=== PATIENT | female | born 1935 | race Caucasian/White ===

== ENCOUNTER 2023-04-28 14:21 | Outpatient (OUT) | payer MEDICARE, SELFPAY ==
--- NOTE | 2023-04-28 14:30 | XR_ITS ---
The [address] [address] Patient Name: MILIND SANDERS MRN: [id number] date: 1935 Sex: F Assigned Patient Location: [facility] Current Patient Location: Accession/Order Number: [id number] Exam Date: 04/28/2023 14:38 Report Date: 04/29/2023 07:38 At the request of: SARA BLAKE Procedure: XR wrist LT min 3V PROCEDURE: XR wrist LT min 3V COMPARISON: None. HISTORY: Pain in the left wrist M25.532 FINDINGS: BONES:Severe degenerative changes first carpometacarpal joint with lmnt-mm-lnts articulation and remodeling. Subchondral lytic change of the lunate SOFT TISSUES:Negative. No visible soft tissue swelling. EFFUSION:None visible. OTHER: Negative. IMPRESSION: Degenerative changes most significant first carpometacarpal joint Electronically authenticated by: NANCY MAN Date: 04/29/2023 07:38
== END 2023-04-28 14:22 | disposition home or self-care (01) ==
LOC: RAD 14:24
PROVIDERS: PCP Family Medicine; Visit Provider Family Medicine
DX: M25.532 Pain in left wrist (principal)
CPT/HCPCS: 73110

== ENCOUNTER 2023-06-22 12:46 | Outpatient (RCR) | payer MEDICARE, SELFPAY | END 2023-07-02 16:37 | disposition home or self-care (01) | LOC: ST 12:46 | PROVIDERS: PCP Family Medicine | DX: R13.10 Dysphagia, unspecified (principal) | CPT/HCPCS: 92526; 92610 ==

== ENCOUNTER 2023-07-12 12:22 | Outpatient (OUT) | payer MEDICARE, SELFPAY ==
--- NOTE | 2023-07-12 12:39 | MR_ITS ---
[address] [address] Patient Name: MILIND SANDERS MRN: [id number] date: 1935 Sex: F Assigned Patient Location: LAB Current Patient Location: LAB Accession/Order Number: [id number] Exam Date: 07/12/2023 12:46 Report Date: 07/12/2023 15:56 At the request of: NON-STAFF PHYSICIAN Procedure: MR head/brain wo/w con EXAM: MR HEAD/BRAIN WO/W CON HISTORY: Ataxia R27.0, memory impairment R41.3. Right-sided trigeminal neuralgia. COMPARISON: Head CT 07/29/2020. TECHNIQUE: Multiplanar, multisequence MR imaging of the head was performed prior to and following the administration of 13 mm Dotarem contrast intravenously. FINDINGS: No restricted diffusion. No acute hemorrhage, mass effect, midline shift or extra-axial fluid collection. There is moderate diffuse cerebral atrophy with concordant prominence of the ventricles. Mild patchy areas of increased FLAIR signal are seen within the periventricular and subcortical white matter. Expected flow voids are noted within the intracranial internal carotid, vertebral and basilar arteries. The cerebellopontine angles and internal auditory canals are unremarkable. The pituitary gland and midline structures are unremarkable. Bone marrow signal is within normal limits. The orbits and globes are unremarkable. There has been bilateral cataract eye surgery. Expected signal voids are seen within the paranasal sinuses and mastoid air cells. No abnormal enhancement. Cavernous sinus regions are unremarkable. The cisternal segments of the trigeminal nerves are not well-visualized MR/MR head/brain wo/w con IMPRESSION: 1. Moderate diffuse cerebral atrophy with concordant prominence of the ventricles. 2. Mild nonspecific FLAIR signal abnormalities of the supratentorial white matter, compatible with chronic small vessel ischemic changes. No abnormal enhancement or mass effect. Electronically authenticated by: NANCY ABEBE Date: 07/12/2023 15:56
[2023-07-12 12:47] LABS: Estimated GFR (African America 58 (>=60); Estimated GFR (Non-African Ame 48 (>=60)
== END 2023-07-12 12:23 | disposition home or self-care (01) ==
LOC: LAB 12:22
PROVIDERS: PCP Family Medicine
DX: G50.0 Trigeminal neuralgia (principal); R41.3 Other amnesia; R27.0 Ataxia, unspecified
CPT/HCPCS: 36415; 70553; 82565; 84520; A9575

== ENCOUNTER 2023-08-03 13:37 | Emergency (ER) | payer MEDICARE, SELFPAY ==
[2023-08-03] VITALS (16 sets, daily range): BP systolic 150–152; BP diastolic 84–86; PULSE 66–90; RESP 11–22; TEMP 36.6–36.7; O2SAT 90–98; BMI 27.3
[2023-08-03 13:58] LABS: Glucometer 118 mg/dL (74-106)
--- NOTE | 2023-08-03 14:04 | XR_ITS ---
The [address] [address] Patient Name: MILIND SANDERS MRN: [id number] date: 1935 Sex: F Assigned Patient Location: ER Current Patient Location: ER Accession/Order Number: [id number] Exam Date: 08/03/2023 14:25 Report Date: 08/03/2023 14:48 At the request of: DREAD CASH Procedure: XR chest 1V EXAMINATION: XR chest 1V HISTORY: pain , confusion, weakness, altered mental status COMPARISON: XR chest 05/07/2022 FINDINGS: LUNGS: Underexpanded lungs with slight patient rotation; no convincing infiltrates. VASCULATURE: No increased pulmonary vasculature. PLEURA: No pneumothorax, effusion, or pleural thickening. CARDIAC: No cardiomegaly or cardiac silhouette abnormality. MEDIASTINUM: No visible mass or adenopathy. BONES: No fracture or visible bone lesion. OTHER: Negative. XR/XR chest 1V IMPRESSION: 1. Slightly limited evaluation, but no appreciable acute cardiopulmonary process. Electronically authenticated by: SELAM MCGARRY Date: 08/03/2023 14:48
--- NOTE | 2023-08-03 14:04 | ECG_ITS ---
The [facility] Test Date: 2023-08-03 Pat Name: MILIND SANDERS Department: Room: - Gender: Female Patient Access Associate: : 1935 Requested By: SARA BLAKE Order Number: [id number] Reading MD: MEÑO TRAMMELL Measurements Intervals [place] Rate: 70 P: 0 ME: 220 QRS: 2 QRSD: 128 T: 4 QT: 410 QTc: 430 Interpretive Statements 1100 Sinus rhythm 1102 Sinus arrhythmia 2231 First degree AV block 2450 Right bundle branch block 3634 Inferior myocardial infarction, age undetermined 9150 abnormal ECG No previous ECG available for comparison Electronically Signed On 08-04-2023 7:09:27 EDT by MEÑO TRAMMELL
--- NOTE | 2023-08-03 14:05 | CT_ITS ---
The [address] [address] Patient Name: MILIND SANDERS MRN: [id number] date: 1935 Sex: F Assigned Patient Location: ER Current Patient Location: ER Accession/Order Number: [id number] Exam Date: 08/03/2023 14:45 Report Date: 08/03/2023 15:07 At the request of: DREAD CASH Procedure: CT head/brain wo con CT head/brain wo con, 08/03/2023 2:45 PM EDT INDICATION: ams COMPARISON: There is no appropriate prior study for comparison. TECHNIQUE: Axial CT images of the brain from skull base to vertex, including portions of the face and sinuses, were obtained without contrast . Multiplanar reformatted images were generated and reviewed as needed. Dose reduction techniques were achieved by using automated exposure control and/or adjustment of mA and/or kV according to patient size and/or use of iterative reconstruction technique. FINDINGS: The cerebral sulci as well as ventricular system are appropriate for age. There is no intracranial mass, mass effect, midline shift, intra or extra-axial fluid collection or hemorrhage. Periventricular and centrum semiovale hypodensities are most likely consistent with microvascular ischemic changes. The visualized portions of orbits, mastoid air cells as well as paranasal sinuses are unremarkable. Tortuous right V4 is noted. There is no suspicious osteolytic or osteoblastic lesion. CT/CT head/brain wo con IMPRESSION: No acute intracranial process is noted. Electronically authenticated by: MARIYA SYLVESTER Date: 08/03/2023 15:07
--- NOTE | 2023-08-03 14:06 | ED_ITS ---
HPI - Neuro Symptoms/Deficit General Chief Complaint: Neuro Symptoms/Deficit Stated Complaint: CVA SYMPTOMS Time Seen by Provider: 08/03/23 14:04 Source: patient and family Mode of arrival: Wheelchair Limitations: no limitations History of Present Illness HPI Narrative: 87-year-old female past medical history short-term memory who is seeing a neurologist for a dementia work-up no other past medical history, per the daughter, presents for intermittent episodes of forgetfulness. Daughter states that she woke up more tired than her normal and she kept wanting to go back to bed. She noticed around 11 AM today, which was 3 hours ago, she was in the shower and did not know where the shampoo and conditioner was, but they were right in front of her. She also noticed a little mumbling of words and both symptoms resolved after a couple of minutes. Daughter states on the way here, the daughter did not know who she was. She is not on blood thinners. She is prone to UTIs, but has not had 1 in a very long time. Denies fever, cough, dizziness, headache, vision changes, abd or back pain, dysuria, n/v/d, SOB or CP Related Data Previous Rx's Medication Instructions Recorded cephalexin 500 mg capsule 500 mg PO BID 7 days #14 caps 08/03/23 Review of Systems ROS Status of ROS 10 or more systems reviewed and unremarkable except as noted in history and below [facility] Social History Smoking status: Never smoker Exam Narrative Exam Narrative: General: alert, no distress, talking in full an complete sentences skin: warm, dry, intact head: normocephalic, atraumatic eyes: EOMI nose: nares patent neck: supple, trachea midline cardiac: +S1/S1. no murmur respiratory: lungs CTA, non-labored, no wheezing, no retractions extremities: FROM x 4, strength +5/5 neuro: A&Ox2, no focal neurological deficits, sensory intact psych: appropriate mood and affect, cooperative Unable to tell me what month and daughter states that this is normal Constitutional Vital Signs, click to edit/add: Last Vital Signs Temp 98 F 08/03/23 13:50 Pulse 66 08/03/23 16:10 Resp 18 08/03/23 16:10 BP 152/86 H 08/03/23 16:10 Pulse Ox 94 L 08/03/23 16:10 O2 Del Method Room Air 08/03/23 14:42 Course Vital Signs Vital signs: Vital Signs Temperature 98 F 08/03/23 13:50 Pulse Rate 75 08/03/23 13:50 Respiratory Rate 20 08/03/23 13:50 Blood Pressure 150/84 H 08/03/23 13:50 Pulse Oximetry 93 L 08/03/23 13:50 Oxygen Delivery Method Room Air 08/03/23 13:50 Temperature 98 F 08/03/23 13:50 Pulse Rate 66 08/03/23 16:10 Respiratory Rate 18 08/03/23 16:10 Blood Pressure 152/86 H 08/03/23 16:10 Pulse Oximetry 94 L 08/03/23 16:10 Oxygen Delivery Method Room Air 08/03/23 14:42 MDM - Neuro Symptoms/Deficit MDM Narrative Medical decision making narrative: NIH 0 and she is not a tPA candidate due to NIH score and intermittent symptoms that resolved and returned and not consistent with a stroke. EKG sinus rhythm with a first-degree AV block and a right bundle branch block at a rate of 70. Nurse informs me that patients oxygen is 90% and she is put on 2 L O2. No acute findings on final read of chest x-ray. No acute findings on final read of CT head. No acute findings on final read of CTA chest and unlikely a pulmonology issue as the cause for her O2 reading more likely equipment versus inaccurate reading from a finger monitor. No other significant lab abnormalities. COVID- negative. UA positive for nitrite, leukocyte, WBC and bacteria and will be treated for UTI with Keflex. No indications for IV antibiotics. Patient was complaining of left leg pain at the same time the nurse stated that she was 90% on room air and venous Doppler negative. F/u with PCP. afebrile, not tachypneic, not tachycardic, tolerating p.o., not hypoxic, non toxic appearing and ambulating at baseline and hemodynamically stable to be d/c. answered all questions. educated on SE of meds. pt in agreement with tx. educated when to return to ER. Lab Data Labs: Lab Results 08/03/23 08/03/23 08/03/23 Range/Units 13:57 14:00 15:00 WBC 7.5 (4.0-11.0) 10^3/uL RBC 4.42 (4.20-5.40) 10^6/uL Hgb 14.3 (12.0-16.0) g/dL Hct 43.7 (36.0-48.0) % MCV 98.9 (81.0-99.0) fL MCH 32.4 (26.7-34.0) pg MCHC 32.7 (29.9-35.2) g/dL RDW 12.8 (11.0-15.0) % Plt Count 228 (150-450) 10^3/uL MPV 9.5 (9.5-13.5) fL Neut % (Auto) 60.6 (43.0-75.0) % Lymph % (Auto) 29.7 (20.5-60.0) % [place] % (Auto) 7.0 (1.7-12.0) % Eos % (Auto) 1.5 (0.9-7.0) % Baso % (Auto) 0.7 (0.2-2.0) % Neut # (Auto) 4.5 (1.4-6.5) 10^3/uL Lymph # (Auto) 2.2 (1.2-3.8) 10^3/uL [place] # (Auto) 0.5 (0.3-0.8) 10^3/uL Eos # (Auto) 0.1 (0.0-0.7) 10^3/uL Baso # (Auto) 0.1 (0.0-0.1) 10^3/uL Abs Immat Gran (auto) 0.04 H (0.00-0.03) 10^3/uL Imm/Tot Granulo (auto) 0.5 (0.0-0.5) % PT 9.9 (9.0-11.6) sec INR 0.93 Sodium 137 (136-145) mmol/L Potassium 4.2 (3.5-5.1) mmol/L Chloride 101 (98-107) mmol/L Carbon Dioxide 27.3 (21.0-32.0) mmol/L Anion Gap 12.9 BUN 30.0 H (7.0-18.0) mg/dL Creatinine 1.15 H (0.55-1.02) mg/dL Est GFR ( Amer) 54 L (>=60) Est GFR (Non-Af Amer) 45 L (>=60) BUN/Creatinine Ratio 26.1 Glucose 121 H (74-106) mg/dL Calcium 8.8 (8.5-10.1) mg/dL Magnesium 2.1 (1.8-2.4) mg/dL Total Bilirubin 0.5 (0.2-1.0) mg/dL AST 20 (15-37) U/L ALT 25 (14-59) U/L Alkaline Phosphatase 64 (46-116) U/L Troponin I High Sens 9.4 (4.0-51.3) pg/mL NT-Pro-B Natriuret Pep 124.0 (<=1800.0) pg/mL Total Protein 7.5 (6.4-8.2) g/dL Albumin 3.7 (3.4-5.0) g/dL Globulin 3.8 g/dL Albumin/Globulin Ratio 1.0 TSH 2.558 (0.358-3.740) uIU/mL Urine Color (YELLOW) Urine Clarity (CLEAR) Urine pH (5.0-9.0) Ur Specific [place] (1.005-1.025) Urine Protein (NEG/TRACE) mg/dL Urine Glucose (UA) (NEGATIVE) mg/dL Urine Ketones (NEGATIVE) mg/dL Urine Occult Blood (NEGATIVE) Urine Nitrite (NEGATIVE) Urine Bilirubin (NEGATIVE) Urine Urobilinogen (0.2-1.0) EU/dL Ur Leukocyte Esterase (NEGATIVE) Urine RBC (0-2) #/HPF Urine WBC (NONE SEEN) #/HPF Ur Squamous Epith Cells (NONE/RARE) #/LPF Urine Crystals (None Seen) #/HPF Urine Bacteria (NONE SEEN) #/HPF Urine Casts (NONE SEEN) #/LPF Urine Mucus (NONE SEEN) SARS-CoV-2 (PCR) Negative (NEGATIVE) POC Glucose 118 H (74-106) mg/dL 08/03/23 Range/Units 15:15 WBC (4.0-11.0) 10^3/uL RBC (4.20-5.40) 10^6/uL Hgb (12.0-16.0) g/dL Hct (36.0-48.0) % MCV (81.0-99.0) fL MCH (26.7-34.0) pg MCHC (29.9-35.2) g/dL RDW (11.0-15.0) % Plt Count (150-450) 10^3/uL MPV (9.5-13.5) fL Neut % (Auto) (43.0-75.0) % Lymph % (Auto) (20.5-60.0) % [place] % (Auto) (1.7-12.0) % Eos % (Auto) (0.9-7.0) % Baso % (Auto) (0.2-2.0) % Neut # (Auto) (1.4-6.5) 10^3/uL Lymph # (Auto) (1.2-3.8) 10^3/uL [place] # (Auto) (0.3-0.8) 10^3/uL Eos # (Auto) (0.0-0.7) 10^3/uL Baso # (Auto) (0.0-0.1) 10^3/uL Abs Immat Gran (auto) (0.00-0.03) 10^3/uL Imm/Tot Granulo (auto) (0.0-0.5) % PT (9.0-11.6) sec INR Sodium (136-145) mmol/L Potassium (3.5-5.1) mmol/L Chloride (98-107) mmol/L Carbon Dioxide (21.0-32.0) mmol/L Anion Gap BUN (7.0-18.0) mg/dL Creatinine (0.55-1.02) mg/dL Est GFR ( Amer) (>=60) Est GFR (Non-Af Amer) (>=60) BUN/Creatinine Ratio Glucose (74-106) mg/dL Calcium (8.5-10.1) mg/dL Magnesium (1.8-2.4) mg/dL Total Bilirubin (0.2-1.0) mg/dL AST (15-37) U/L ALT (14-59) U/L Alkaline Phosphatase (46-116) U/L Troponin I High Sens (4.0-51.3) pg/mL NT-Pro-B Natriuret Pep (<=1800.0) pg/mL Total Protein (6.4-8.2) g/dL Albumin (3.4-5.0) g/dL Globulin g/dL Albumin/Globulin Ratio TSH (0.358-3.740) uIU/mL Urine Color Lt. yellow (YELLOW) Urine Clarity Clear (CLEAR) Urine pH 6.5 (5.0-9.0) Ur Specific [place] <=1.005 A (1.005-1.025) Urine Protein Negative (NEG/TRACE) mg/dL Urine Glucose (UA) Negative (NEGATIVE) mg/dL Urine Ketones Negative (NEGATIVE) mg/dL Urine Occult Blood Trace-l (NEGATIVE) Urine Nitrite Positive A (NEGATIVE) Urine Bilirubin Negative (NEGATIVE) Urine Urobilinogen 0.2 (0.2-1.0) EU/dL Ur Leukocyte Esterase Small A (NEGATIVE) Urine RBC 0-2 (0-2) #/HPF Urine WBC 10-20 A (NONE SEEN) #/HPF Ur Squamous Epith Cells Rare (NONE/RARE) #/LPF Urine Crystals None seen (None Seen) #/HPF Urine Bacteria Moderate A (NONE SEEN) #/HPF Urine Casts None seen (NONE SEEN) #/LPF Urine Mucus None seen (NONE SEEN) SARS-CoV-2 (PCR) (NEGATIVE) POC Glucose (74-106) mg/dL Discharge Plan Discharge Chief Complaint: Neuro Symptoms/Deficit Clinical Impression: Acute confusion UTI (urinary tract infection) Qualifiers: Urinary tract infection type: acute cystitis Hematuria presence: without hematuria Qualified Code(s): N30.00 - Acute cystitis without hematuria Patient Disposition: Home, Self-Care Time of Disposition Decision: 16:05 Condition: Good Mode of Transportation: Private Vehicle Prescriptions / Home Meds: New cephalexin 500 mg capsule 500 mg PO BID 7 Days Qty: 14 0RF Instructions: Urinary Tract Infection in Older Adults (ED) Stand Alone Forms: Portal Instructions Referrals: Dahiana Ren MD [Primary Care Provider] - 1 week
[2023-08-03 14:17] LABS: Basophils Absolute Auto 0.1 10^3/uL (0.0-0.1); Basophils Percent Auto 0.7 % (0.2-2.0); Eosinophils Absolute Auto 0.1 10^3/uL (0.0-0.7); Eosinophils Percent Auto 1.5 % (0.9-7.0); Hematocrit 43.7 % (36.0-48.0); Hemoglobin 14.3 g/dL (12.0-16.0); Immature Granulocytes Abs Auto 0.04 10^3/uL (0.00-0.03); Immature Granulocytes Pct Auto 0.5 % (0.0-0.5); Lymphocytes Absolute Auto 2.2 10^3/uL (1.2-3.8); Lymphocytes Percent Auto 29.7 % (20.5-60.0); Mean Corpuscular HGB Conc 32.7 g/dL (29.9-35.2); Mean Corpuscular Hemoglobin 32.4 pg (26.7-34.0); Mean Corpuscular Volume 98.9 fL (81.0-99.0); Mean Platelet Volume 9.5 fL (9.5-13.5); Monocytes Absolute Auto 0.5 10^3/uL (0.3-0.8); Neutrophils Absolute Auto 4.5 10^3/uL (1.4-6.5); Neutrophils Percent Auto 60.6 % (43.0-75.0); Platelet Count 228 10^3/uL (150-450); Red Blood Count 4.42 10^6/uL (4.20-5.40); Red Cell Distribution Width 12.8 % (11.0-15.0); White Blood Count 7.5 10^3/uL (4.0-11.0)
[2023-08-03 14:26] LABS: INR 0.93; Prothrombin Time 9.9 sec (9.0-11.6)
[2023-08-03 14:30] LABS: Alanine Aminotransferase 25 U/L (14-59); Albumin Level 3.7 g/dL (3.4-5.0); Alkaline Phosphatase 64 U/L (46-116); Anion Gap 12.9; Aspartate Amino Transferase 20 U/L (15-37); BUN Creatinine Ratio 26.1; Bilirubin Total 0.5 mg/dL (0.2-1.0); Calcium 8.8 mg/dL (8.5-10.1); Carbon Dioxide 27.3 mmol/L (21.0-32.0); Chloride 101 mmol/L (98-107); Estimated GFR (African America 54 (>=60); Estimated GFR (Non-African Ame 45 (>=60); Globulin 3.8 g/dL; Glucose 121 mg/dL (74-106); Potassium 4.2 mmol/L (3.5-5.1); Sodium 137 mmol/L (136-145); Total Protein 7.5 g/dL (6.4-8.2)
[2023-08-03 14:37] LABS: Magnesium 2.1 mg/dL (1.8-2.4); Thyroid Stimulating Hormone 2.558 uIU/mL (0.358-3.740); Troponin I High Sensitivity 9.4 pg/mL (4.0-51.3)
--- NOTE | 2023-08-03 14:39 | CT_ITS ---
The [address] [address] Patient Name: MILIND SANDERS MRN: [id number] date: 1935 Sex: F Assigned Patient Location: ER Current Patient Location: ER Accession/Order Number: [id number] Exam Date: 08/03/2023 14:45 Report Date: 08/03/2023 15:15 At the request of: DREAD CASH Procedure: CT angio chest EXAM: CT angio chest HISTORY: r/o PE altered mental status. Shortness of breath. COMPARISON: None. TECHNIQUE: Following the intravenous administration of 90 cc of Omnipaque 350, axial soft tissue and lung windows of the chest were performed with coronal and sagittal reformats. 3-D MIPS reconstructions were created and reviewed. CT dose reduction technique was used including Automated Exposure Control. Findings: The heart is not significantly enlarged. There are mild coronary artery calcifications. No pericardial effusion. The thoracic aorta is normal caliber with mild atherosclerotic disease. There is adequate opacification of the pulmonary arteries. No evidence of pulmonary embolism. The central airways are patent. No pneumothorax. No pleural effusion. No focal consolidation. Mild bilateral lower lobe atelectasis. Unremarkable thyroid gland. No enlarged mediastinal, hilar, axillary or supraclavicular lymph nodes. Within segment 2 of the liver there is a 1.4 cm cyst. No aggressive sclerotic or lytic osseous lesions. Mild multilevel degenerative spondylosis. CT/CT angio chest IMPRESSION: 1. No pulmonary embolism. Electronically authenticated by: SILVIA COYLE Date: 08/03/2023 15:15
--- NOTE | 2023-08-03 14:39 | US_ITS ---
The [address] [address] Patient Name: MILIND SANDERS MRN: [id number] date: 1935 Sex: F Assigned Patient Location: ER Current Patient Location: ED.MAIN Accession/Order Number: [id number] Exam Date: 08/03/2023 15:15 Report Date: 08/03/2023 16:08 At the request of: DREAD CASH Procedure: US venous doppler LE LT Ultrasound venous duplex scan left lower extremity CLINICAL: Left thigh cramping for 3 weeks. TECHNIQUE: Macias-scale, color Doppler and Duplex examination of the left lower extremity was performed with and without provocative maneuvers. FINDINGS: Comparison: None. Sonographic examination of the left lower extremity deep venous system to include the common femoral, superficial femoral and popliteal veins, demonstrates normal compressibility, color-flow, respiratory variation, and augmentation. The origin of the greater saphenous vein demonstrates normal compression, and there is normal color-flow in the proximal profunda femoral vein. There is normal color-flow in the peroneal, posterior tibial, and anterior tibial veins. US/US venous doppler LE LT IMPRESSION: 1. No deep venous thrombosis in the left lower extremity. Electronically authenticated by: MINNIE ZHAO Date: 08/03/2023 16:08
[2023-08-03 15:47] LABS: Bilirubin Urine NEGATIVE (NEGATIVE); Blood Urine TRACE-L (NEGATIVE); Clarity Urine CLEAR (CLEAR); Color Urine LT. YELLOW (YELLOW); Glucose Urine UA NEGATIVE (NEGATIVE); Ketones Urine NEGATIVE (NEGATIVE); Leukocyte Esterase Urine SMALL (NEGATIVE); Nitrite Urine POSITIVE (NEGATIVE); Protein Urine NEGATIVE (NEG/TRACE); Specific Gravity Urine <=1.005 (1.005-1.025); Urobilinogen Urine 0.2 EU/dL (0.2-1.0); pH Urine 6.5 (5.0-9.0)
[2023-08-03 15:53] LABS: SARS-CoV-2 Ag NEGATIVE (NEGATIVE)
[2023-08-03 15:55] LABS: Bacteria Urine MODERATE #/HPF (NONE SEEN); Cast Seen? NONE SEEN #/LPF (NONE SEEN); Crystals Seen? None Seen #/HPF (None Seen); Mucus Urine NONE SEEN (NONE SEEN); RBC Urine 0-2 #/HPF (0-2); Squamous Epithelial Cell Urine RARE #/LPF (NONE/RARE)
[2023-08-04 14:46] LABS: SARS-CoV-2 NAA NOT DETECTED (NOT DETECTE)
== END 2023-08-03 16:39 | disposition home or self-care (01) ==
PROVIDERS: Physician Assistant; Emergency Provider Emergency Medicine; PCP Family Medicine
DX: N30.00 Acute cystitis without hematuria (principal); R41.0 Disorientation, unspecified; F03.90 Unspecified dementia, unspecified severity, without behavioral disturbance, psychotic disturbance, mood disturbance, and anxiety; I44.0 Atrioventricular block, first degree; I45.10 Unspecified right bundle-branch block; Z20.822 Contact with and (suspected) exposure to COVID-19; M79.605 Pain in left leg
CPT/HCPCS: 36415; 70450; 71045; 71275; 80053; 81001; 83735; 83880; 84443; 84484; 85025; 85610; 87635; 87811; 93005; 93971; 99285; Q9967

== ENCOUNTER 2024-04-19 14:00 | Outpatient (OUT) | payer MEDICARE, SELFPAY ==
[2024-04-19 14:36] LABS: Basophils Percent Auto 0.4 % (0.2-2.0); Eosinophils Absolute Auto 0.2 10^3/uL (0.0-0.7); Eosinophils Percent Auto 2.6 % (0.9-7.0); Hemoglobin 13.4 g/dL (12.0-16.0); Immature Granulocytes Abs Auto 0.02 10^3/uL (0.00-0.03); Immature Granulocytes Pct Auto 0.3 % (0.0-0.5); Lymphocytes Absolute Auto 1.7 10^3/uL (1.2-3.8); Mean Corpuscular HGB Conc 32.7 g/dL (29.9-35.2); Mean Corpuscular Hemoglobin 30.2 pg (26.7-34.0); Mean Corpuscular Volume 92.3 fL (81.0-99.0); Mean Platelet Volume 9.1 fL (9.5-13.5); Monocytes Absolute Auto 0.5 10^3/uL (0.3-0.8); Monocytes Percent Auto 6.5 % (1.7-12.0); Neutrophils Absolute Auto 4.6 10^3/uL (1.4-6.5); Neutrophils Percent Auto 66.2 % (43.0-75.0); Platelet Count 241 10^3/uL (150-450); Red Blood Count 4.44 10^6/uL (4.20-5.40); Red Cell Distribution Width 13.1 % (11.0-15.0); White Blood Count 6.9 10^3/uL (4.0-11.0)
[2024-04-19 15:00] LABS: Alanine Aminotransferase 42 U/L (14-59); Albumin Level 3.5 g/dL (3.4-5.0); Alkaline Phosphatase 91 U/L (46-116); Aspartate Amino Transferase 33 U/L (15-37); Bilirubin Total 0.3 mg/dL (0.2-1.0); Calcium 9.2 mg/dL (8.5-10.1); Carbon Dioxide 30.2 mmol/L (21.0-32.0); Chloride 102 mmol/L (98-107); Estimated GFR (African America 60 (>=60); Estimated GFR (Non-African Ame 49 (>=60); Globulin 3.4 g/dL; Glucose 119 mg/dL (74-106); Magnesium 1.9 mg/dL (1.8-2.4); Potassium 4.2 mmol/L (3.5-5.1); Sodium 139 mmol/L (136-145); Total Protein 6.9 g/dL (6.4-8.2)
== END 2024-04-19 14:01 | disposition home or self-care (01) ==
LOC: LAB 14:04
PROVIDERS: PCP Family Medicine; Visit Provider Family Medicine
DX: R30.0 Dysuria (principal); E83.42 Hypomagnesemia; I10 Essential (primary) hypertension; L65.9 Nonscarring hair loss, unspecified
CPT/HCPCS: 36415; 80053; 83735; 84443; 85025

== ENCOUNTER 2024-04-23 13:01 | Outpatient (OUT) | payer MEDICARE, SELFPAY ==
--- NOTE | 2024-04-23 13:04 | CA_ITS ---
Patient Name: MILIND SANDERS MR#: [id number] : 1935 Exam Date: 04/23/2024 Ordering Doctor: ESTEBAN FERNANDO ECHOCARDIOGRAM REPORT PROCEDURE: CA ECHO LIMITED INDICATIONS: Takotsubo syndrome COMPARISON: None. DESCRIPTION: Limited ECHOCARDIOGRAM Real-time transthoracic echocardiography with 2D and M-mode performed. QUALITY: Technical quality was good. LEFT VENTRICLE: Normal chamber size. Normal left ventricular wall thickness. Global left ventricular systolic function is normal. LV EF: Estimated left ventricular ejection fraction is 60-65%. DIASTOLIC: ATRIAL SEPTUM: LEFT ATRIUM: Normal chamber size. RIGHT ATRIUM: Normal chamber size. RIGHT VENTRICLE: Normal chamber size. Normal right ventricular systolic function. TRICUSPID VALVE: Normal mobility and thickness. MITRAL VALVE: Normal mobility and thickness. There is no mitral annular calcification. AORTIC VALVE: Normal trileaflet appearance. Thickened aortic valve. Normal leaflet mobility. AORTIC ROOT: Normal diameter and appearance. PULMONIC VALVE: Normal thickness and mobility. PERICARDIUM: No evidence of pericardial effusion. IVC: Collapses with inspirations. Normal size. PLEURA: CONCLUSION: 1. Normal ventricular systolic function. LVEF is 60-65%. 2. No pericardial effusion. 3. Limited study performed with no Doppler interrogation as requested. Adult Echocardiography Procedure Report Left Ventricle LVEDD (3.7 - 5.6 cm): 4.46 cm LVESD (2.2 - 4.0 cm): 2.85 cm LVIVS thickness (0.6 - 1.2 cm): 1.03 cm LVPW thickness (0.5 - 1.0 cm): 0.96 cm LVOT Diameter 2.09 cm Left Ventricular Ejection Fraction: 60-65 % Left Atrium LA Volume Index (2D A2C): 21.92 ml/m2 Left Atrium Systolic Dimension: 3.61 cm Mitral Valve Right Ventricle RV Internal Diastolic Dimension: 3.13 cm Aorta AO Root Diam: 3.72 cm Ascending Ao Diam: 3.16 cm Aortic Valve Tricuspid Valve Pulmonic Valve Right Atrium Right Atrium Systolic Pressure: 29.75 ml, 29.75 ml Dictated by: Aj Pendleton M.D. on 04/24/2024 at 18:31 Approved by: Aj Pendleton M.D. on 04/24/2024 at 18:34
== END 2024-04-23 13:02 | disposition home or self-care (01) ==
LOC: CARD 13:02
PROVIDERS: PCP Family Medicine; Visit Provider Nurse Practitioner
DX: I51.81 Takotsubo syndrome (principal)
CPT/HCPCS: 93308

== ENCOUNTER 2024-05-14 15:16 | Observation (INO) | payer MEDICARE, SELFPAY ==
[2024-05-14 15:25] VITALS: BP 171/96; PULSE 73; TEMP 36.7; O2SAT 91; BMI 23.4
--- NOTE | 2024-05-14 15:39 | XR_ITS ---
The [address] [address] Patient Name: MILIND SANDERS MRN: [id number] date: 1935 Sex: F Assigned Patient Location: ER Current Patient Location: ER Accession/Order Number: [id number] Exam Date: 05/14/2024 16:05 Report Date: 05/14/2024 16:23 At the request of: AGUSTIN BIRCH Procedure: XR chest 1V EXAM: XR chest 1V HISTORY: . fall . COMPARISON: 08/03/2023 TECHNIQUE: Single view of the chest. FINDINGS: Heart is upper limits of normal in size. Vascularity is unremarkable. Right lung is unremarkable. There is slight increased density in the left lung base. There is slight blunting of left cost phrenic angle. Atherosclerotic changes of the thoracic aorta. Impression: 1. Expiratory chest. 2. Cardiac enlargement. 3. Slight increased density in the left lung base representing atelectasis or an early infiltrate. 4. There is slight blunting of left cost phrenic angle either due to scarring or small effusion. Electronically authenticated by: NANCY WOODS Date: 05/14/2024 16:23
--- NOTE | 2024-05-14 15:39 | CT_ITS ---
The [address] [address] Patient Name: MILIND SANDERS MRN: [id number] date: 1935 Sex: F Assigned Patient Location: ER Current Patient Location: Accession/Order Number: [id number] Exam Date: 05/14/2024 15:53 Report Date: 05/14/2024 16:41 At the request of: AGUSTIN BIRCH Procedure: CT cervical spine wo con CT CERVICAL SPINE WITHOUT CONTRAST, 05/14/2024. HISTORY: Fall. Neck pain. COMPARISON: None. TECHNIQUE: Noncontrast axial CT images obtained through the cervical spine. Reconstructions obtained in the sagittal and coronal planes. Dose reduction techniques were achieved by using automated exposure control and/or adjustment of mA and/or kV according to patient size and/or use of iterative reconstruction technique. FINDINGS: The patient is osteopenic. There is grade 1 anterolisthesis at C7-T1. The odontoid process is intact. Facet joints are intact. No acute cervical spine fracture. No CT evidence of spinal cord compression. No paraspinal soft tissue swelling. CT/CT cervical spine wo con IMPRESSION: No acute cervical spine fracture or traumatic subluxation. Electronically authenticated by: NUZHAT PHILLIPS Date: 05/14/2024 16:41
--- NOTE | 2024-05-14 15:39 | CT_ITS ---
The [address] [address] Patient Name: MILIND SANDERS MRN: [id number] date: 1935 Sex: F Assigned Patient Location: ER Current Patient Location: Accession/Order Number: [id number] Exam Date: 05/14/2024 15:55 Report Date: 05/14/2024 16:41 At the request of: AGUSTIN BIRCH Procedure: CT head/brain wo con CT HEAD WITHOUT CONTRAST, 05/14/2024. HISTORY: Dementia. Fall. COMPARISON: CT head, 08/03/2023. TECHNIQUE: Noncontrast axial CT images obtained through the head. Reconstructions obtained in the sagittal and coronal planes. Dose reduction techniques were achieved by using automated exposure control and/or adjustment of mA and/or kV according to patient size and/or use of iterative reconstruction technique. FINDINGS: The paranasal sinuses are clear. The mastoid air cells are clear. No skull fracture. Prior cataract surgery. Extracranial soft tissue structures are unremarkable. Moderate brain atrophy. There is an area of chronic infarction in the left parietal lobe that is new from the prior but not acute. No extra-axial fluid collection. No mass effect. No shift of midline. No hemorrhage. No edema in the brain. No masses. CT/CT head/brain wo con IMPRESSION: 1. No acute findings. No intracranial hemorrhage. 2. 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 This is new from the prior exam but not acute. Electronically authenticated by: NUZHAT PHILLIPS Date: 05/14/2024 16:41
--- NOTE | 2024-05-14 15:39 | XR_ITS ---
The [address] [address] Patient Name: MILIND SANDERS MRN: [id number] date: 1935 Sex: F Assigned Patient Location: ER Current Patient Location: ER Accession/Order Number: [id number] Exam Date: 05/14/2024 16:05 Report Date: 05/14/2024 17:21 At the request of: AGUSTIN BIRCH Procedure: XR pelvis 1-2V EXAM: XR pelvis 1-2V HISTORY: The patient is an 88-year-old female, fall COMPARISON: None. FINDINGS: No displaced fractures are seen within either proximal femur or elsewhere throughout the bony pelvis on this single AP view. The alignment of both hip joints is maintained. The sacroiliac joints are maintained. The pubic symphysis is maintained. XR/XR pelvis 1-2V IMPRESSION: No displaced fractures seen. Electronically authenticated by: SUSHANT IBRAHIM Date: 05/14/2024 17:21
--- NOTE | 2024-05-14 15:39 | XR_ITS ---
The [address] [address] Patient Name: MILIND SANDERS MRN: [id number] date: 1935 Sex: F Assigned Patient Location: ER Current Patient Location: ER Accession/Order Number: [id number] Exam Date: 05/14/2024 16:05 Report Date: 05/14/2024 17:22 At the request of: AGUSTIN BIRCH Procedure: XR ankle RT min 3V EXAM: XR ankle RT min 3V HISTORY: The patient is an 88-year-old female, fall COMPARISON: None. FINDINGS: No acute or ununited fractures are seen within or around the ankle joint. The ankle mortise is intact and uniform. The syndesmosis is maintained. No soft tissue swelling is seen. XR/XR ankle RT min 3V IMPRESSION: Radiographically negative right ankle. Electronically authenticated by: SUSHANT IBRAHIM Date: 05/14/2024 17:22
--- NOTE | 2024-05-14 15:39 | XR_ITS ---
The [address] [address] Patient Name: MILIND SANDERS MRN: [id number] date: 1935 Sex: F Assigned Patient Location: ER Current Patient Location: ED.MAIN Accession/Order Number: [id number] Exam Date: 05/14/2024 16:05 Report Date: 05/14/2024 17:19 At the request of: AGUSTIN BIRCH Procedure: XR humerus RT EXAM: XR humerus RT HISTORY: The patient is an 88-year-old female, fall COMPARISON: None. XR/XR humerus RT IMPRESSION: The right humerus is radiographically negative with no evidence of fracture, cortical lucencies, or other osseous abnormalities. The shoulder joint is grossly maintained. Electronically authenticated by: SUSHANT IBRAHIM Date: 05/14/2024 17:19
--- NOTE | 2024-05-14 15:41 | ED.GENADUL1 ---
Documented by User: DARIEL Arango 05/14/24 18:09 HPI HPI - General Adult General Chief complaint: Trauma Stated complaint: fall w/ head injury Time Seen by Provider: 05/14/24 15:28 Source: patient Mode of arrival: walk-in Limitations: physical limitation History of Present Illness HPI narrative: Patient is an 88 year old female who presents to the ED with her daughter for the evaluation of multiple injuries from a fall at assisted living where the patient is a resident 5 days ago. Patient's daughter states that the patient had GI symptoms last week and on transferring from the toilet in her bathroom. She had no syncope but daughter thinks she may have been lightheaded contributing to the fall. She has not had any continued dizziness, chest pain or shortness of breath. She hit her head. She denies neck or back pain. She reports pain in the right arm. On further questioning she admits to some pain in the right hip and leg. She uses aspirin infrequently. Daughter states she was told that the patient fell, but assisted living reported that the patient was fine . When daughter arrived to the facility today, the patient had significant difficulty raising her arm to put her shirt on and has had difficulty ambulating with a walker. Related Data Home Medications ?Medication ?Instructions ?Recorded ?Confirmed citalopram 20 mg tablet 20 mg PO DAILY 05/14/24 05/14/24 hydroxyzine HCl 25 mg tablet 25 mg PO Q8H 05/14/24 05/14/24 memantine 10 mg tablet 10 mg PO Q12H 05/14/24 05/14/24 venlafaxine 75 mg capsule,extended 75 mg PO DAILY 05/14/24 05/14/24 release 24 hr Allergies Allergy/AdvReac Type Severity Reaction Status Date / Time Sulfa (Sulfonamide AdvReac Intermediate Weakness Verified 05/14/24 15:36 Antibiotics) Opioid HPI Opioid Management Most Recent Opioid Data: Last Pain Scale 6 05/14/24 19:02 Last ED Pain Assessment 05/14/24 19:02 Review of Systems ROS Constitutional Denies: fever or chills Ears, nose, mouth, and throat Denies: throat pain or nasal congestion Cardiovascular Denies: chest pain Respiratory Denies: shortness of breath or cough Gastrointestinal Denies: abdominal pain, nausea or vomiting Musculoskeletal Reports: extremity pain, joint pain and limited range of motion; Denies: back pain or neck pain Integumentary/Breast Denies: rash Neurological Denies: headache, numbness in extremities or weakness in extremities Hematologic/Lymphatic Denies: easy bruising or easy bleeding [facility] Social History Smoking status: Never smoker Exam Narrative Exam Narrative: Gen.: Awake, alert, in no distress Head: Normocephalic, well healing ecchymosis to the right jainism ENT: Moist mucous membranes; Cspine nontender with full range of motion Respiratory: No respiratory distress, lungs clear bilaterally Cardio: Regular rate and rhythm Gastrointestinal: Abdomen is soft, nondistended and nontender to palpation; pelvis is stable Extremities: Limited range of motion at the right arm/shoulder with ecchymosis of the right humerus. 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 2+ right radial pulse with no tenderness of the right hand or wrist. Mild tenderness of the right hip/pelvis. Moderate tenderness of the right ankle with no appreciable swelling or ecchymosis. No obvious deformity or rotation of the right leg Psych: Normal mood and affect Neuro: No focal neuro deficit Skin: Warm, dry, intact Constitutional Vital Signs, click to edit/add: Last Vital Signs Temp 98.1 F 05/14/24 15:25 Pulse 73 05/14/24 15:25 Resp 05/14/24 15:25 BP 171/96 H 05/14/24 15:25 Pulse Ox 91 L 05/14/24 15:25 O2 Del Method Room Air 05/14/24 15:25 Course Vital Signs Vital signs: Vital Signs Temperature 98.1 F 05/14/24 15:25 Pulse Rate 73 05/14/24 15:25 Respiratory Rate 18 05/14/24 15:25 Blood Pressure 171/96 H 05/14/24 15:25 Pulse Oximetry 91 L 05/14/24 15:25 Oxygen Delivery Method Room Air 05/14/24 15:25 Temperature 98.1 F 05/14/24 15:25 Pulse Rate 73 05/14/24 15:25 Respiratory Rate 18 05/14/24 15:25 Blood Pressure 171/96 H 05/14/24 15:25 Pulse Oximetry 91 L 05/14/24 15:25 Oxygen Delivery Method Room Air 05/14/24 15:25 Medical Decision Making MDM Narrative Medical decision making narrative: Patient treated with fentanyl and zofran for pain. Labs are stable. CT of the head and cervical spine are unremarkable. XR chest, shoulder, ankle and pelvis are unremarkable. Patient attempted to ambulate with a walker, she does have some unsteadiness on her feet and pain with using the walker due to right arm contusion. Discussed obs admission with patient and daughter. Daughter feels the patient is unsafe to go back to assisted living. Patient admitted for IV fluids, pain control and PT/OT. Suspect the patient may be dehydrated from recent GI illness. Case discussed with the hospitalist for admission SUPERVISED APC VISIT, PHYSICIAN ATTESTATION: Based on the medical record the care appears appropriate. ? Medical Records Medical records reviewed: Yes I reviewed the patient's medical records Lab Data Lab results reviewed: Yes I reviewed the patient's lab results Labs: Lab Results 05/14/24 Range/Units 16:27 WBC 7.6 (4.0-11.0) 10^3/uL RBC 4.27 (4.20-5.40) 10^6/uL Hgb 13.0 (12.0-16.0) g/dL Hct 39.4 (36.0-48.0) % MCV 92.3 (81.0-99.0) fL MCH 30.4 (26.7-34.0) pg MCHC 33.0 (29.9-35.2) g/dL RDW 13.0 (11.0-15.0) % Plt Count 233 (150-450) 10^3/uL MPV 9.3 L (9.5-13.5) fL Neut % (Auto) 61.2 (43.0-75.0) % Lymph % (Auto) 27.1 (20.5-60.0) % [place] % (Auto) 8.2 (1.7-12.0) % Eos % (Auto) 2.8 (0.9-7.0) % Baso % (Auto) 0.4 (0.2-2.0) % Neut # (Auto) 4.6 (1.4-6.5) 10^3/uL Lymph # (Auto) 2.1 (1.2-3.8) 10^3/uL [place] # (Auto) 0.6 (0.3-0.8) 10^3/uL Eos # (Auto) 0.2 (0.0-0.7) 10^3/uL Baso # (Auto) 0.0 (0.0-0.1) 10^3/uL Abs Immat Gran (auto) 0.02 (0.00-0.03) 10^3/uL Imm/Tot Granulo (auto) 0.3 (0.0-0.5) % PT 10.7 (9.0-11.6) sec INR 1.01 Sodium 135 L (136-145) mmol/L Potassium 3.9 (3.5-5.1) mmol/L Chloride 100 (98-107) mmol/L Carbon Dioxide 28.9 (21.0-32.0) mmol/L Anion Gap 10.0 BUN 27.0 H (7.0-18.0) mg/dL Creatinine 1.05 H (0.55-1.02) mg/dL Est GFR ( Amer) >60 (>=60) Est GFR (Non-Af Amer) 50 L (>=60) BUN/Creatinine Ratio 25.7 Glucose 97 (74-106) mg/dL Calcium 9.0 (8.5-10.1) mg/dL Imaging Data CT scan - head: Attestation: I have reviewed the pertinent imaging results. Radiologist's impression: ITS Impressions Ankle X-Ray 05/14/24 15:39 IMPRESSION: Radiographically negative right ankle. Electronically authenticated by: SUSHANT IBRAHIM Date: 05/14/2024 17:[address] 05/14/24 15:39 IMPRESSION: No acute cervical spine fracture or traumatic subluxation. Electronically authenticated by: NUZHAT PHILLIPS Date: 05/14/2024 16:[address] 05/14/24 15:39 IMPRESSION: 1. No acute findings. No intracranial hemorrhage. 2. 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 This is new from the prior exam but not acute. Electronically authenticated by: NUZHAT PHILLIPS Date: 05/14/2024 16:41 Humerus X-Ray 05/14/24 15:39 IMPRESSION: The right humerus is radiographically negative with no evidence of fracture, cortical lucencies, or other osseous abnormalities. The shoulder joint is grossly maintained. Electronically authenticated by: SUSHANT IBRAHIM Date: 05/14/2024 17:19 Pelvis X-Ray 05/14/24 15:39 IMPRESSION: No displaced fractures seen. Electronically authenticated by: SUSHANT IBARHIM Date: 05/14/2024 17:21 Discharge Plan Discharge Chief Complaint: Trauma Clinical Impression: Fall, Contusion of arm, right, Weakness, Difficulty walking Patient Disposition: Admitted as Observation Time of Disposition Decision: 18:08 Discharge Date/Time: 05/14/24 18:46 Documented by User: Oliverio Moncada MD 05/14/24 19:57 HPI HPI - General Adult General Chief complaint: Trauma Stated complaint: fall w/ head injury Time Seen by Provider: 05/14/24 15:28 Related Data Home Medications ?Medication ?Instructions ?Recorded ?Confirmed citalopram 20 mg tablet 20 mg PO DAILY 05/14/24 05/14/24 hydroxyzine HCl 25 mg tablet 25 mg PO Q8H 05/14/24 05/14/24 memantine 10 mg tablet 10 mg PO Q12H 05/14/24 05/14/24 venlafaxine 75 mg capsule,extended 75 mg PO DAILY 05/14/24 05/14/24 release 24 hr Allergies Allergy/AdvReac Type Severity Reaction Status Date / Time Sulfa (Sulfonamide AdvReac Intermediate Weakness Verified 05/14/24 15:36 Antibiotics) Opioid HPI Opioid Management Most Recent Opioid Data: Last Pain Scale 6 05/14/24 19:02 Last ED Pain Assessment 05/14/24 19:02 PFSH PFSH Social History Smoking status: Never smoker Exam Constitutional Vital Signs, click to edit/add: Last Vital Signs Temp 98.1 F 05/14/24 15:25 Pulse 73 05/14/24 15:25 Resp 18 05/14/24 15:25 BP 171/96 H 05/14/24 15:25 Pulse Ox 91 L 05/14/24 15:25 O2 Del Method Room Air 05/14/24 15:25 Course Vital Signs Vital signs: Vital Signs Temperature 98.1 F 05/14/24 15:25 Pulse Rate 73 05/14/24 15:25 Respiratory Rate 18 05/14/24 15:25 Blood Pressure 171/96 H 05/14/24 15:25 Pulse Oximetry 91 L 05/14/24 15:25 Oxygen Delivery Method Room Air 05/14/24 15:25 Temperature 98.1 F 05/14/24 15:25 Pulse Rate 73 05/14/24 15:25 Respiratory Rate 18 05/14/24 15:25 Blood Pressure 171/96 H 05/14/24 15:25 Pulse Oximetry 91 L 05/14/24 15:25 Oxygen Delivery Method Room Air 05/14/24 15:25 Medical Decision Making MDM Narrative Medical decision making narrative: Patient treated with fentanyl and zofran for pain. Labs are stable. CT of the head and cervical spine are unremarkable. XR chest, shoulder, ankle and pelvis are unremarkable. Patient attempted to ambulate with a walker, she does have some unsteadiness on her feet and pain with using the walker due to right arm contusion. Discussed obs admission with patient and daughter. Daughter feels the patient is unsafe to go back to assisted living. Patient admitted for IV fluids, pain control and PT/OT. Suspect the patient may be dehydrated from recent GI illness. Case discussed with the hospitalist for admission SUPERVISED APC VISIT, PHYSICIAN ATTESTATION: Based on the medical record the care appears appropriate. I, Dr Moncada, have reviewed the above progress note and course of action in the ER; agree with the above. I have gone over history and physical, and discussed disposition and treatment plan with the patient. ? Lab Data Labs: Lab Results 05/14/24 Range/Units 16:27 WBC 7.6 (4.0-11.0) 10^3/uL RBC 4.27 (4.20-5.40) 10^6/uL Hgb 13.0 (12.0-16.0) g/dL Hct 39.4 (36.0-48.0) % MCV 92.3 (81.0-99.0) fL MCH 30.4 (26.7-34.0) pg MCHC 33.0 (29.9-35.2) g/dL RDW 13.0 (11.0-15.0) % Plt Count 233 (150-450) 10^3/uL MPV 9.3 L (9.5-13.5) fL Neut % (Auto) 61.2 (43.0-75.0) % Lymph % (Auto) 27.1 (20.5-60.0) % [place] % (Auto) 8.2 (1.7-12.0) % Eos % (Auto) 2.8 (0.9-7.0) % Baso % (Auto) 0.4 (0.2-2.0) % Neut # (Auto) 4.6 (1.4-6.5) 10^3/uL Lymph # (Auto) 2.1 (1.2-3.8) 10^3/uL [place] # (Auto) 0.6 (0.3-0.8) 10^3/uL Eos # (Auto) 0.2 (0.0-0.7) 10^3/uL Baso # (Auto) 0.0 (0.0-0.1) 10^3/uL Abs Immat Gran (auto) 0.02 (0.00-0.03) 10^3/uL Imm/Tot Granulo (auto) 0.3 (0.0-0.5) % PT 10.7 (9.0-11.6) sec INR 1.01 Sodium 135 L (136-145) mmol/L Potassium 3.9 (3.5-5.1) mmol/L Chloride 100 (98-107) mmol/L Carbon Dioxide 28.9 (21.0-32.0) mmol/L Anion Gap 10.0 BUN 27.0 H (7.0-18.0) mg/dL Creatinine 1.05 H (0.55-1.02) mg/dL Est GFR ( Amer) >60 (>=60) Est GFR (Non-Af Amer) 50 L (>=60) BUN/Creatinine Ratio 25.7 Glucose 97 (74-106) mg/dL Calcium 9.0 (8.5-10.1) mg/dL Imaging Data CT scan - head: Radiologist's impression: ITS Impressions Ankle X-Ray 05/14/24 15:39 IMPRESSION: Radiographically negative right ankle. Electronically authenticated by: SUSHANT IBRAHIM Date: 05/14/2024 17:[address] 05/14/24 15:39 IMPRESSION: No acute cervical spine fracture or traumatic subluxation. Electronically authenticated by: NUZHAT PHILLIPS Date: 05/14/2024 16:[address] 05/14/24 15:39 IMPRESSION: 1. No acute findings. No intracranial hemorrhage. 2. 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 This is new from the prior exam but not acute. Electronically authenticated by: NUZHAT PHILLIPS Date: 05/14/2024 16:41 Humerus X-Ray 05/14/24 15:39 IMPRESSION: The right humerus is radiographically negative with no evidence of fracture, cortical lucencies, or other osseous abnormalities. The shoulder joint is grossly maintained. Electronically authenticated by: SUSHANT IBRAHIM Date: 05/14/2024 17:19 Pelvis X-Ray 05/14/24 15:39 IMPRESSION: No displaced fractures seen. Electronically authenticated by: SUSHANT IBRAHIM Date: 05/14/2024 17:21 Discharge Plan Discharge Chief Complaint: Trauma Clinical Impression: Fall, Contusion of arm, right, Weakness, Difficulty walking Patient Disposition: Admitted as Observation Time of Disposition Decision: 18:08 Discharge Date/Time: 05/14/24 18:46
[2024-05-14] MEDS: ONDANSETRON PF 4 MG/2 ML VIAL IV (16:30)
[2024-05-14] MEDS: FENTANYL CITRATE/PF 100 MCG/2 ML VIAL 50 MCG IV (16:30)
[2024-05-14 16:45] LABS: Basophils Percent Auto 0.4 % (0.2-2.0); Eosinophils Absolute Auto 0.2 10^3/uL (0.0-0.7); Eosinophils Percent Auto 2.8 % (0.9-7.0); Hematocrit 39.4 % (36.0-48.0); Immature Granulocytes Abs Auto 0.02 10^3/uL (0.00-0.03); Immature Granulocytes Pct Auto 0.3 % (0.0-0.5); Lymphocytes Absolute Auto 2.1 10^3/uL (1.2-3.8); Lymphocytes Percent Auto 27.1 % (20.5-60.0); Mean Corpuscular Hemoglobin 30.4 pg (26.7-34.0); Mean Corpuscular Volume 92.3 fL (81.0-99.0); Mean Platelet Volume 9.3 fL (9.5-13.5); Monocytes Absolute Auto 0.6 10^3/uL (0.3-0.8); Monocytes Percent Auto 8.2 % (1.7-12.0); Neutrophils Absolute Auto 4.6 10^3/uL (1.4-6.5); Neutrophils Percent Auto 61.2 % (43.0-75.0); Platelet Count 233 10^3/uL (150-450); Red Blood Count 4.27 10^6/uL (4.20-5.40); White Blood Count 7.6 10^3/uL (4.0-11.0)
[2024-05-14 16:54] LABS: BUN Creatinine Ratio 25.7; Carbon Dioxide 28.9 mmol/L (21.0-32.0); Chloride 100 mmol/L (98-107); Estimated GFR (African America >60 (>=60); Estimated GFR (Non-African Ame 50 (>=60); Glucose 97 mg/dL (74-106); Potassium 3.9 mmol/L (3.5-5.1); Sodium 135 mmol/L (136-145)
[2024-05-14 17:06] LABS: INR 1.01; Prothrombin Time 10.7 sec (9.0-11.6)
[2024-05-14] MEDS: 0.9 % SODIUM CHLORIDE 1,000 ML 1000 ML IV (18:17)
--- NOTE | 2024-05-14 18:58 | PC.NURSE ---
This RN to bedside to assist and assess with ambulation with walker. Pt able to stand herself with contact guard. Pt stated that she was dizzy. pt able to walk to and from the sink in room about 20 total with minimal discomfort but unsteady and concern for additional fall if patient was to go home at this time. Assessment communicated to PA.
--- OUTSIDE RECORDS SUMMARY | 2024-05-14 19:01 | XMS_ITS | CCD ---
Author Organization [facility] CliniSynv Care Team Providers Care Hematologist Name Role Phone PHYSICIAN, DEFAULT Admitting Unavailable PHYSICIAN, DEFAULT Attending Unavailable Sara Blake E Unavailable Unavailable Unavailable CASEY AVALOS, DEON ERICKSON Attending Unava ilable CASEY AVALOS, DEON ERICKSON Attending Unava ilable Unavailable Primary Care Provider UnavailSara Galvez Unavailable Unavailable Unavailable Dr. Sara Blake Primary Care Unav ailable Ismael Lawson Attending Unavailable Renny, Ismael Referring Unavailable Renny, Ismael Attending Unavailable Hayden, Dr. Sara Brandon Primary Care Unav ailable Ismael Lawson Attending Unavailable Renny, Ismael Referring Unavailable Hayden, Dr. Sara Brandon Primary Care Unav ailable Renny, Ismael Attending Unavailable Renny, Ismael Referring Unavailable Blake, Dr. Sara Brandon Primary Care Unav ailable JAZMINE, MARIA INES Admitting Unavailable JAZMINE, MARIA INES Attending Unavailable HAYDEN, SARA E Primary Care Unavailable JAZMINE, MARIA INES Consulting Unavailable JUAN, DR ESPINO Admitting Unavailable JUAN, DR ESPINO Attending Unavailable BLAKE, SARA E Primary Care Unavailable MARTINEZ, DR ESPINO Consulting Unavailable BLAKE, SARA E Admitting Unavailable BLAKESARA E Attending Unavailable BLAKE, SARA E Primary Care Unavailable BLAKE, SARA E Consulting Unavailable JAZMINE, AMRIA INES Admitting Unavailable JAZMINE, MARIA INES Attending Unavailable BLAKE, SARA E Primary Care Unavailable JAZMINE, MARIA INES Consulting Unavailable BLAKE, SARA E Admitting Unavailable BLAKE SARA E Attending Unavailable BLAKE, SARA E Primary Care Unavailable BLAKE, SARA E Consulting Unavailable BLAKE, SARA E Primary Care Unavailable MARKER ., DR ESCUDERO Admitting Unavailable MARKER ., DR ESCUDERO Attending Unavailable HAY ., DR JACQUES Consulting Unavailable MARKER ., DR ESCUDERO Consulting Unavailable READER, ANUPAMA Consulting Unavailable SARA BLAKE E Primary Care Unavailable LAN ., DR JOSE RAMON Parekh Admitting Unavailable LAN ., DR JOSE RAMON Parekh Attending Unavailable LAN ., DR JOSE RAMON Parekh Consulting Unavailable JEWEL DE SANTIAGO Consulting Unavailable SARA BLAKE E Admitting Unavailable SARA BLAKE E Attending Unavailable SARA BLAKE E Primary Care Unavailable SELF, SELF Referring Unavailable SARA BLAKE Primary Care Unavailable YUISMAEL HOWE Attending Unavailable HAYDEN, SARA Primary Care Unavailable MEFTAH, CORINA I Referring Unavailable YUISMAEL HOWE Attending Unavailable Sara Blake MD Primary Care Provider [phone] SARA BLAKE Primary Care Unavailable SARA BLAKE Referring Unavailable KAHLIL WAKEFIELD Attending Unavailable SARA BLAKE Primary Care Unavailable MD Sara Blake Attending Provider MD Aravind Jackson Jr Emergency Provider MD Sara Blake Primary Care Provider [phone] DO Everett Lawson Admit Provider [phone] DO Everett Lawson Attending Provider MD Pinky Nicole Other Provider Sara Blake MD Primary Care Provider ESTEBAN PINEDA Attending Unavailable SARA BLAKE E Primary Care Unavailable Sara Blake E Admitting Unavailable Flaco Blakeia E Primary Care Unavailable Sara Blake Attending Unavailable Sara Blake Admitting Unavailable Sara Blake Attending Unavailable Everett Lawson Admitting Unavailable Everett Lawson Attending Unavailable Hayden Sara E Primary Care Unavailable Pinky Nicole Consulting Unavailable Allergies Allergy Classification Reported Allergen(s) Allergy Type Date of Onset Reaction(s) Facility (6 sources) Sulfonamides (Antibiotic); Translations: [Sulfa Drugs] Allergy to drug (finding) Nausea -[facility] DO Work Phone: (12 sources) Amoxicillin / Clavulanate Drug Allergy 07-05-20 23 Diarrhea [facility] (14 sources) cefdinir Drug Allergy Unknown [email or web address] Other (20 sources) Cefuroxime Drug Allergy 04-04-20 18 CARDENAS et diarrhea, Unknown Reaction, Unknown, Unknown Reaction, CARDENAS et diarrhea [facility] (14 sources) Cephalexin Drug Allergy Unknown [place] [facility] [employer] Other (20 sources) Ciprofloxacin Drug Allergy 05-10-20 17 muscle weakness, Vomiting, Comment:muscl e weakness, Vomiting, Comment:muscl e weakness, muscle weakness [facility] (14 sources) HMG-CoA reductase inhibitor Drug allergy Unknown [facility] [employer] Other (16 sources) levoFLOXacin; Translations: [Levaquin] Drug Allergy 12-01-19 16 diarrhea [facility] (20 sources) Morphine Drug Allergy 05-10-20 17 Nausea and Vomiting [facility] [employer] Other (14 sources) NITROFURANTOIN, MACROCRYSTALS / Nitrofurantoin, Monohydrate Drug Allergy muscle weakness [facility] [employer] Other (15 sources) Sulfamethoxazole / Trimethoprim; Translations: [Bactrim] Drug Allergy shortness of breath [facility] (20 sources) Trimethoprim Drug Allergy 05-07-20 22 Nausea Only [facility] [employer] Other (5 sources) Amoxicillin / Clavulanate; Translations: [Augmentin] Drug Allergy 12-03-19 17 diarrhea [facility] (1 source) Cefuroxime Drug Allergy [facility] (1 source) Ciprofloxacin Drug Allergy [facility] (2 sources) Morphine Drug Allergy 03-28-20 13 [facility] (1 source) Nitrofurantoin Drug Allergy [facility] (1 source) Trimethoprim Drug Allergy [facility] (6 sources) levoFLOXacin Drug Allergy 05-07-20 22 Nausea and Vomiting [facility] (6 sources) Nitrofurantoin Drug Allergy 05-07-20 22 Headache [facility] (6 sources) Amoxicillin; Translations: [amoxicillin] Drug Allergy 05-07-20 22 Unknown Reaction, Unknown Reaction, diarrhea [facility] (6 sources) Clavulanate; Translations: [clavulanic acid] Drug Allergy 05-07-20 22 Unknown Reaction, Unknown Reaction, diarrhea [facility] (8 sources) Morphine Sulfate (Concentrate) *ANALGESICS - OPIOI Propensity to adverse reactions Unknown [place] [facility] [employer] Other (8 sources) Medicinal cephalosporin and acting as antibacterial agent (FN) Drug allergy Unknown [email or web address] Other (8 sources) Ceclor *CEPHALOSPORINS* Propensity to adverse reactions Unknown [email or web address] Other (8 sources) Keflex *CEPHALOSPORINS* Propensity to adverse reactions 11-15-19 Unknown [email or web address] Other (5 sources) cefdinir; Translations: [cefdinir] Drug Allergy 02-09-20 [facility] (5 sources) Cephalexin; Translations: [cephalexin] Drug Allergy 02-09-20 [facility] (5 sources) Cephalosporins (Antibiotic); Translations: [Cephalosporins] Allergy to substance 02-09-20 [facility] (5 sources) Sulfamethoxazole; Translations: [sulfamethoxazole] Drug Allergy 02-09-20 shortness of breath [facility] (5 sources) Ywfjvqe-MIE-HyR Reductase Inhibitor; Translations: [[place]-YCY-CiU Reductase Inhibitor] Allergy to substance 02-09-20 [facility] (2 sources) Sulfonamides (Antibiotic); Translations: [SULFA (SULFONAMIDE ANTIBIOTICS)] Drug Intolerance 11-17-[address] [facility] (1 source) Cefuroxime Drug Allergy 04-19-20 [facility] (1 source) Ciprofloxacin Drug Allergy 04-19-20 [facility] (1 source) levoFLOXacin Drug Allergy 04-19-20 [facility] (1 source) Morphine Drug Allergy 04-19-20 [facility] (1 source) Nitrofurantoin Drug Allergy 04-19-20 [facility] (1 source) Trimethoprim Drug Allergy 04-19-20 [facility] Rep[facility] Medications Current Medications Medication Drug Class(es) Dates Sig (Normalized) Sig (Original) ALPRAZolam 0.25 mg oral tablet (20 sources) Benzodiazepine Start: 11-22-2023 take 1 tablet by mouth three times daily as needed ALPRAZolam 0.25 MG 1 tablet Orally tid prn for 30 days Oct, Active Start: 04-28-2023 take 1 tablet by corazon th twice daily as needed Xanax 0.25 MG 1 tablet Orally bid prn for 30 days Pt takes PRN Apr, Active Start: 05-07-2022 take 1 tablet by corazon th once daily at bedtime Alprazolam (Xanax) 0.25 mg Tablet Active 0.25 MG PO Daily at bedtime May 07, 2022 12:00am Aspir-81 (14 sources) Aspir-81 Active Azithromycin (1 source) Macrolide Antimicrobial Start: 04-19-2024 Azithromycin Active 0 PO .COMPLEX April 19, 2024 12:00am For 250 mg dose pack: take 500 mg today (day 1), then 250 mg for 4 days (days 2-5) PO citalopram 20 mg oral tablet (20 sources) Serotonin Reuptake Inhibitor Start: 04-19-2024 Citalopram Active 20 MG .ROUTE Daily April 19, 2024 1:53pm 20 mg daily; Start: 02-16-2024 End: 04-19-2024 take 1 tablet by mouth once daily Citalopram Discontinued 0 .ROUTE .COMPLEX February 16, 2024 9:43am April 19, 2024 1:54pm TAKE ONE TABLET BY MOUTH DAILY Start: 02-09-2024 End: 02-16-2024 take 40 mg by mouth once daily Citalopram Discontinued 40 MG PO Daily February 09, 2024 1:40pm February 16, 2024 9:43am Start: 11-10-2023 take 1 tablet by corazon th every twenty-four hours Citalopram Hydrobromide 40 MG 1 tablet Orally Once a day for 30 days Oct, Active Start: 11-10-2023 take 1 tablet by corazon th every twenty-four hours Citalopram Hydrobromide 20 MG 1 tablet Orally Once a day for 30 day(s) Oct, Active Start: 06-28-2023 take 1 tablet by corazon th once daily Citalopram 20 MG tablet Take 1 tablet by mouth daily. 0 06/28/2023 Active Start: 05-07-2022 End: 02-09-2024 take 10 mg by mouth once daily Citalopram Discontinued 10 MG PO Daily May 07, 2022 12:00am February 09, 2024 1:43pm hydrALAZINE hydrochloride 25 mg oral tablet (2 sources) Arteriolar Vasodilator Start: 11-22-2023 take 1 tablet by mouth every eight hours hydrALAZINE HCl 25 MG 1 tablet with food Orally Three times a day for 30 days Oct, Active hydrOXYzine hydrochloride 25 mg oral tablet (12 sources) Antihistamine Start: 02-16-2024 take 1 tablet by mouth three times daily as needed for anxiety Hydroxyzine Hcl Active 0 .ROUTE .COMPLEX February 16, 2024 9:43am TAKE ONE TABLET BY MOUTH THREE TIMES A DAY NEEDED FOR ANXIETY Start: 12-14-2023 End: 02-16-2024 take 25 mg by mouth three times daily Hydroxyzine Hcl Discontinued 25 MG PO Three times daily December 16, 2023 12:55pm February 16, 2024 9:43am magnesium oxide 400 mg oral tablet (3 sources) Start: 03-13-2024 take 400 mg by mouth twice daily Magnesium Oxide Active 400 MG PO Twice daily 60 March 13, 2024 12:00am memantine hydrochloride 10 mg oral tablet (20 sources) N-edcbfd-S-asparta te Receptor Antagonist Start: 06-19-2023 take 10 mg by mouth twice daily Memantine Active 10 MG PO Twice daily February 09, 2024 12:00am take 1 tablet by corazon th every twenty-four hours Namenda 5 MG 1 tablet Orally Once a day Active 24 hr metoprolol succinate 25 mg extended release oral tablet (20 sources) beta-Adrenergic Megan Start: 04-30-2023 take 1 tablet by mouth once daily Metoprolol succinate 25 MG tablet XL Take 1 tablet by mouth daily. 0 04/30/2023 Active Start: 12-28-2022 take 1 tablet by corazon th once daily Metoprolol Succinate ER 25 MG Oral Tablet Extended Release 24 Hour TAKE 1 TABLET DAILY. Quantity: 90 Refills: 3 Ordered: 28-Dec-2022 Ismael Lawson DO Start : 28-Dec-2022 Active New start D/C Metoprolol Tartrate Start: 05-07-2022 End: 02-09-2024 take 25 mg by mouth twice daily Metoprolol Tartrate Di scontinued 25 MG PO Twice daily 60 May 07, 2022 12:00am February 09, 2024 1:42pm Multivitamin preparation (2 sources) Multi Vitamin Ac tive Painter 4-Pdd-Bqt-Fish Oil (5 sources) Start: 2 take 2 capsules by mouth once daily Painter 1-Foc-Khd-Fish Oil Active 2 CAP PO Daily May 07, 2022 12:00am sertraline 25 mg oral tablet (1 source) Serotonin Reuptake Inhibitor take 1 tablet by mouth every twenty-four hours Sertraline HCl 25 MG 1 tablet once a day Active SUMAtriptan 50 mg oral tablet (20 sources) Serotonin-1b and Serotonin-1d Receptor Agonist Start: 4 take 50 mg by mouth once daily Sumatriptan Succinate Active 50 MG PO Daily April 04, 2024 1:18pm Start: 05-07-2022 End: 04-04-2024 take 100 mg by mouth once daily Sumatriptan Succinate Discontinued 100 MG PO Daily May 07, 2022 12:00am April 04, 2024 1:19pm take 1 tablet by corazon th every two hours as needed, then take 1 tablet by mouth twice daily as needed SUMAtriptan Succinate 100 MG 1 tablet at least 2 hours between doses as needed Orally Twice a day Active Imitrex Not-Taki ng SUMAtriptan Succ inate 100 MG Oral Tablet TAKE DIRECTED. Quantity: 0 Refills: 0 Ordered: 11-May-2022 DO Active 24 hr venlafaxine 75 mg extended release oral capsule (2 sources) Serotonin and Norepinephrine Reuptake Inhibitor Start: 04-19-2024 take 37.5 mg by mouth once daily Venlafaxine Active 37.5 MG PO Daily April 19, 2024 1:52pm Start: 04-04-2024 End: 04-19-2024 take 1 capsule by mouth once daily Venlafaxine (Effexor Xr) 37.5 mg capsule,extended release 24hr Discontinued 37.5 MG PO Daily April 04, 2024 12:00am April 19, 2024 1:54pm Completed/Discontinued Medications Medication Drug Class(es) Dates Sig (Normalized) Sig (Original) amoxicillin 500 mg oral capsule (2 sources) Penicillin-class Antibacterial Start: 03-14-2024 End: 04-04-2024 take 500 mg by mouth every twelve hours Amoxicillin Discontinued 500 MG PO Q12H 8 4 March 14, 2024 12:00am April 04, 2024 1:19pm aspirin 81 mg delayed release oral tablet (13 sources) Platelet Aggregation Inhibitor, Nonsteroidal Anti-inflammatory Drug Start: 12-28-2022 take 1 tablet by mouth three times weekly Aspirin 81 MG Oral Tablet Delayed Release 1 tablet three times weekly. Quantity: 45 Refills: 3 Ordered: 28-Dec-2022 Ismael Lawson DO Start : 28-Dec-2022 Active Start: 05-07-2022 take 81 mg by mouth once daily Aspirin Active 81 MG PO Daily 0 May 07, 2022 12:00am atenolol 25 mg oral tablet (5 sources) beta-Adrenergic Megan Start: 05-07-2022 End: 05-07-2022 take 25 mg by mouth once daily Atenolol Discontinued 25 MG PO Daily May 07, 2022 12:00am May 07, 2022 3:44pm Biotin (5 sources) Biotin Not-Takin g bupivacaine hydrochloride 2.5 mg/ml injectable solution (2 sources) Amide Local Anesthetic Start: 07-05-2023 End: 07-05-2023 Bupivacaine (MARCAINE) injection 2 mL calcium polycarbophil (5 sources) FiberCon Not-Taking celecoxib (5 sources) Nonsteroidal Anti-inflammatory Drug CeleBREX Not-Taking Citracal Plus (5 sources) Citracal Plus Not-Taking dextromethorphan hydrobromide 1.5 mg/ml / pyrilamine maleate 1.5 mg/ml oral solution (5 sources) Uncompetitive K-mjxkhr-F-aspartate Receptor Antagonist, Sigma-1 Agonist Start: 07-24-2019 [place] DM 7.5-7.5 MG/5ML 1 teaspoon as directed Orally every 6-8 hours as needed for 8 days Jul, Not-Taking doxycycline hyclate 100 mg oral capsule (11 sources) Tetracycline-class Drug Start: 05-07-2022 End: 02-09-2024 take 100 mg by mouth once daily Doxycycline Hyclate Discontinued 100 MG PO Daily May 07, 2022 12:00am February 09, 2024 1:41pm started on 05/04/22 for 7 days Start: 07-24-2019 take 1 capsule by [facility] every twelve hours Doxycycline Monohydrate 100 MG 1 capsule Orally every 12 hrs for 10 days Jul, Not-Taking take 1 tablet by corazon th once daily Doxycycline Monohydrate 100 MG Oral Tablet TAKE 1 TABLET DAILY. Quantity: 0 Refills: 0 Ordered: 11-May-2022 DO Active Fish Oil CAPS (1 source) Fish Oil CAPS ta ke 2 capsules daily Quantity: 0 Refills: 0 Ordered: 11-May-2022 DO Active gabapentin 300 mg oral capsule (13 sources) Anti-epileptic Agent Start: 2 End: 4 take 300 mg by mouth three times daily Gabapentin Discontinued 300 MG PO Three times daily May 07, 2022 12:00am February 09, 2024 1:41pm 10 ml lidocaine hydrochloride 10 mg/ml injection (2 sources) Antiarrhythmic, Amide Local Anesthetic Start: 3 End: 3 Lidocaine (XYLOCAINE) 10 mg/mL injection 2 mL losartan potassium 25 mg oral tablet (20 sources) Angiotensin 2 Receptor Megan Start: 4 End: 4 take 1 tablet by mouth once daily Losartan Discontinued 0 .ROUTE .COMPLEX March 16, 2024 10:24am March 16, 2024 11:53am TAKE ONE TABLET BY MOUTH DAILY Start: 05-07-2022 End: 03-21-2024 take 25 mg by mouth once daily Losartan Discontinued 2 5 MG PO Daily March 16, 2024 12:00am March 16, 2024 10:24am 1 ml methylPREDNISolone acetate 40 mg/ml injection (2 sources) Corticosteroid Start: 07-05-2023 End: 07-05-2023 methylPREDNISolone acetate (DEPO-MEDROL) injection 40 mg nitroglycerin 0.4 mg sublingual tablet (20 sources) Nitrate Vasodilator Start: 05-07-2022 End: 02-09-2024 Nitroglycerin Discontinued 0.4 MG SUBLINGUAL Q5M 25 May 07, 2022 12:00am February 09, 2024 1:42pm Nitroglycerin 0. 4 MG as directed Sublingual Active omega-3 acid ethyl esters (fpc) 1000 mg oral capsule (5 sources) take 2 capsules by mouth every twelve hours Lovaza 1 GM 2 capsules Orally Twice a day Not-Taking Painter-3 Fatty Acids 1000 MG (5 sources) take 1 capsule by mouth once daily Painter-3 Fatty Acids 1000 MG 1 capsule Orally Once a day Not-Taking Omeprazole (5 sources) Proton Pump Inhibitor Omeprazole Not-Takin g phenazopyridine hydrochloride 200 mg oral tablet (5 sources) Start: take 1 tablet by mouth every eight hours Pyridium 200 MG 1 tablet after meals Orally Three times a day for 2 day(s) Jul, Not-Taking predniSONE 5 mg oral tablet (18 sources) Start: End: take 5 mg by mouth once daily Prednisone Discontinued 5 MG PO Daily May 07, 2022 12:00am February 09, 2024 1:42pm probiotic (5 sources) probiotic Not-Ta french spironolactone 25 mg oral tablet (20 sources) Aldosterone Antagonist Start: End: take 0.5 tablet by mouth once daily Spironolactone Discontinued 0 .ROUTE .COMPLEX March 16, 2024 10:24am March 16, 2024 11:53am TAKE 1/2 TABLET BY MOUTH DAILY Start: 03-16-2024 End: 03-16-2024 take 12.5 mg by mouth once daily Spironolactone Discontinued 12.5 MG PO Daily March 16, 2024 12:00am March 16, 2024 10:24am Start: 05-18-2023 End: 03-21-2024 take 0.5 tablet by mouth once daily Spironolactone 25 MG tablet Take 0.5 tablets by mouth daily. 0 05/18/2023 Active Start: 05-07-2022 End: 03-13-2024 take 12.5 mg by mouth once daily Spironolactone Discontinued 12.5 MG PO Daily May 07, 2022 12:00am March 13, 2024 9:43am take 1 tablet by corazon th every twenty-four hours Spironolactone 25 MG 1 tablet Orally Once a day Active traMADol hydrochloride 50 mg oral tablet (18 sources) Opioid Agonist Start: 05-07-2022 End: 03-21-2024 take 50 mg by mouth twice daily Tramadol Discontinued 50 MG PO Twice daily May 07, 2022 12:00am February 09, 2024 1:43pm Problems Active Problems Problem Classification Problem Date Documented Date Episodic/Chronic Acute myocardial infarction (8 sources) Non-ST elevation (NSTEMI) myocardial infarction; Translations: [Myocardial infarction] Onset: 05-11-2022 05-07-2022 Chronic Administrative/social admission (5 sources) Sickness in the family; Translations: [Other stressful life events affecting family and household] 05-07-2022 Episodic Anxiety disorders (20 sources) Anxiety disorder, unspecified; Translations: [Anxiety] Onset: 05-11-2022 07-05-2023 Chronic Bacterial infection; unspecified site (1 source) Unspecified Escherichia coli [E. coli] as the cause of diseases classified elsewhere; Translations: [UNS E COLI CAUSE DX CLASS ELSEWHERE] Onset: 11-08-2022 Episodic Coronary atherosclerosis and other heart disease (20 sources) Coronary atherosclerosis; Translations: [Atherosclerotic heart disease of [place] coronary artery without angina pectoris] Onset: 03-09-2024 Chronic Delirium, dementia, and amnestic and other cognitive disorders (16 sources) Unspecified dementia without behavioral disturbance; Translations: [Dementia] Onset: 05-11-2022 Chronic Disorders of lipid metabolism (4 sources) Pure hypercholesterolemia, unspecified; Translations: [Hypercholesterolemia ] Onset: 11-02-2022 Chronic Diverticulosis and diverticulitis (1 source) Diverticular disease; Translations: [Diverticulosis of intestine, part unspecified, without perforation or abscess without bleeding] Onset: 07-05-2023 07-05-2023 Chronic Essential hypertension (9 sources) Essential (primary) hypertension; Translations: [Hypertensive disorder] Onset: 11-08-2022 07-05-2023 Chronic Fluid and electrolyte disorders (3 sources) Dehydration; Translations: [Dehydration] Onset: 11-02-2022 Episodic Genitourinary symptoms and ill-defined conditions (1 source) Urge incontinence of urine; Translations: [Urge incontinence] Onset: 07-05-2023 07-05-2023 Chronic Headache; including migraine (3 sources) Cyclical vomiting, in migraine, intractable; Translations: [Migraine] Onset: 11-02-2022 Chronic Malaise and fatigue (2 sources) Asthenia; Translations: [Weakness] Episodic Mood disorders (2 sources) Depressive disorder; Translations: [Depression] 04-19-2024 Chronic Nausea and vomiting (4 sources) Nausea with vomiting, unspecified; Translations: [NAUSEA WITH VOMITING UNSPECIFIED] Onset: 10-25-2022 Episodic Noninfectious gastroenteritis (2 sources) Noninfective gastroenteritis and colitis, unspecified; Translations: [Noninfective gastroenteritis and colitis, unspecified] Onset: 11-02-2022 Episodic Osteoarthritis (20 sources) Idiopathic osteoarthritis; Translations: [Primary osteoarthritis, unspecified site] Onset: 04-16-2022 Chronic Other aftercare (1 source) Other halfway (current) drug therapy; Translations: [OTH [place]ECTIVE [place] CURRENT DRUG THERAPY] Onset: 11-08-2022 Episodic Other aftercare (1 source) lobsterman (current) use of aspirin; Translations: [SNF CURRENT USE OF ASPIRIN] Onset: 11-08-2022 Episodic Other and ill-defined heart disease (15 sources) Takotsubo cardiomyopathy; Translations: [Takotsubo syndrome] Onset: 11-17-2023 03-09-2024 Chronic Other and ill-defined heart disease (5 sources) Takotsubo syndrome; Translations: [Takotsubo syndrome] Onset: 11-17-2023 03-09-2024 Chronic Other connective tissue disease (14 sources) Polymyalgia rheumatica; Translations: [Polymyalgia rheumatica] Chronic Other connective tissue disease (5 sources) Polymyalgia rheumatica; Translations: [POLYMYALGIA RHEUMATICA] Onset: 04-14-2022 Chronic Other connective tissue disease (1 source) Muscle weakness (generalized); Translations: [MUSCLE WEAKNESS GENERALIZED] Onset: 11-08-2022 Episodic Other connective tissue disease (1 source) Radial styloid tenosynovitis; Translations: [Radial styloid tenosynovitis [de Quervain]] 07-05-2023 Episodic Other connective tissue disease (2 sources) Radial styloid tenosynovitis [de Quervain]; Translations: [Radial styloid tenosynovitis (de quervain)] Onset: 07-05-2023 Episodic Other connective tissue disease (3 sources) Pain in upper limb; Translations: [Pain in right arm] 02-10-2024 Episodic Other connective tissue disease (3 sources) Pain in right arm; Translations: [Pain in limb] 02-09-2024 Episodic Other diseases of bladder and urethra (1 source) Urethral stricture; Translations: [Unspecified urethral stricture, male, unspecified site] Onset: 07-05-2023 07-05-2023 Episodic Other infections; including parasitic (1 source) Unspecified infectious disease Episodic Other non-traumatic joint disorders (4 sources) Pain in left wrist; Translations: [Pain in left wrist] Onset: 04-07-2023 Episodic Other non-traumatic joint disorders (1 source) Pain of left wrist; Translations: [Pain in left wrist] Onset: 04-07-2023 04-07-2023 Episodic Other nutritional; endocrine; and metabolic disorders (1 source) Hypomagnesemia; Translations: [Hypomagnesemia] 04-19-2024 Chronic Other nutritional; endocrine; and metabolic disorders (1 source) Hypomagnesemia; Translations: [Disorders of magnesium metabolism] 04-19-2024 Chronic Other nutritional; endocrine; and metabolic disorders (1 source) Adult failure to thrive; Translations: [ADULT FAILURE TO THRIVE] Onset: 11-08-2022 Episodic Other skin disorders (1 source) Actinic keratosis Episodic Other skin disorders (1 source) Loss of hair; Translations: [Nonscarring hair loss, unspecified] 04-19-2024 Episodic Other skin disorders (1 source) Nonscarring hair loss, unspecified; Translations: [Alopecia, unspecified] 04-19-2024 Episodic Residual codes; unclassified (8 sources) Body mass index 20-24 - normal; Translations: [Body Mass Index between 19-24, adult] Onset: 03-21-2024 03-21-2024 Episodic Residual codes; unclassified (4 sources) Other amnesia; Translations: [OTHER AMNESIA] Onset: 01-28-2023 Episodic Residual codes; unclassified (1 source) Body mass index (BMI) 24.0-24.9, adult; Translations: [BODY MASS INDEX BMI 24.0-24.9 ADULT] Onset: 11-08-2022 Episodic Residual codes; unclassified (2 sources) Disorientation, unspecified Episodic Residual codes; unclassified (2 sources) Body mass index (BMI) 23.0-23.9, adult; Translations: [Body mass index (BMI) 23.0-23.9, adult] Onset: 03-21-2024 Episodic Screening and history of mental health and substance abuse codes (1 source) Personal history of nicotine dependence; Translations: [PERSONAL HISTORY OF NICOTINE DEPEND] Onset: 11-08-2022 Episodic Unclassified (1 source) [place] [facility] Review Required; Translations: [[place] [facility] Director Review Required] Onset: 11-03-2022 Unclassified (1 source) CONTACT W/AND (SUSP) EXPOS COVID-19; Translations: [CONTACT W/AND (SUSP) EXPOS COVID-19] Onset: 11-08-2022 Urinary tract infections (1 source) Chronic cystitis; Translations: [Other chronic cystitis without hematuria] Onset: 07-05-2023 07-05-2023 Chronic Urinary tract infections (4 sources) Urinary tract infection, site not specified; Translations: [Recurrent urinary tract infection] Onset: 11-08-2022 07-05-2023 Episodic Past or Other Problems Problem Classification Problem Date Documented Date Episodic/Chronic Genitourinary symptoms and ill-defined conditions (18 sources) Unspecified symptoms and signs involving the genitourinary system; Translations: [Blood in urine] Onset: 06-02-2022 Episodic Nonspecific chest pain (4 sources) Chest pain, unspecified; Translations: [CHEST PAIN UNSPECIFIED] Onset: 05-07-2022 Episodic Unclassified (6 sources) Never smoked tobacco; Translations: [Never a smoker] Unclassified (1 source) [place] [facility] Review Required; Translations: [[place] [facility] Entertainment Director Review Required] Onset: 11-03-2022 Unclassified (3 sources) Moderate dementia without behavioral disturbance, psychotic disturbance, mood disturbance, or anxiety, unspecified dementia type F03.B0 Unclassified (1 source) Onset: 03-21-2024 03-21-2024 Results Test Name Value Interpretation Reference Range Facility Urine Cultureon 04-19-2024 Bacteria identified Cx Nom (U) ORGANISM: Escherichia coli (O:ESCCOL) [place] Count >100,000 Aerobic SAURABH Charge ([id number]) SUSCEPTIBILITY ORGANISM: O:ESCCOL ANTIBIOTIC INTERPRETATION SAURABH Amikacin S <16 Amoxacillin/K Clavulanate S <8 Ampicillin S <8 Ampicillin/Sulbactam S <4 Aztreonam S <4 Cefazolin S <2 Cefepime S <2 Ceftazidime S <1 Ceftazidime/Avibactam S <4 Ceftolozane/Tazobactam S <2 Ceftriaxone S <1 Cefuroxime S <4 Ciprofloxacin S <0.25 Ertapenem S <0.5 Gentamicin S <2 Levofloxacin S <0.5 Meropenem S <1 Meropenem/Vaborbactam S <2 Nitrofurantoin S <32 Piperacillin/Tazobactam S <8 Tetracycline S <4 Tigecycline S <2 Tobramycin S <2 Trimethoprim/Sulfamethoxa zole S <0.5 S = SUSCEPTIBLE I = INTERMEDIATE R = RESISTANT BLANK = DATA NOT AVAILABLE, OR DRUG NOT ADVISABLE OR TESTED R* = RESISTANCE DUE TO EXTENDED SPECTRUM BETA-LACTAMASES ESBL = EXTENDED SPECTRUM BETA-LACTAMASE TFG = THYMIDINE-DEPENDENT STRAIN SHELDON = BETA-LACTAMASE POSITIVE IB = INDUCIBLE BETA-LACTAMASE. APPEARS IN PLACE OF 'S' WITH SPECIES KNOWN TO POSSESS INDUCIBLE BETA-LACTAMASES. POTENTIALLY THEY MAY BECOME RESISTANT TO ALL B-LACTAM DRUGS. PERFORMED BY: [place] [address] PATHOLOGIST DIRECTOR [employer] CHRISTIANE EVANS M.D. Normal [facility] Comment on above: Performed By: #### P TT, CBC, CK, PT, HS TROP, CMP, BNP #### [address] Basic Metabolic Panelon 05-2 Creatinine Clr Calc Pharmacy 30.32 Normal [facility] Comment on above: Order Comment: PER R N MELLO DRAW AT 0730. SMB [id number]. Result Comment: PERF ORMED BY: [place] [address] PATHOLOGIST DIRECTOR [employer] CHRISTIANE EVANS M.D. Performed By: #### P TT, CBC, CK, PT, HS TROP, CMP, BNP #### [address] GFR/1.73 sq M.predicted MDRD (S/P/Bld) [Vol rate/Area] 49.475 mL/min/{1.73_m2} Normal [facility] Comment on above: Order Comment: PER R N MELLO DRAW AT 729. SMB 0444. Performed By: #### P TT, CBC, CK, PT, HS TROP, CMP, BNP #### [facility] [address] Calcium [Mass/volume] in Ser um or PlasmaOrdered By: Everett Lawson on 03-14-2024 Calcium [Mass/Vol] 8.8 mg/dL Normal 8.6-10.3 [facility] Comment on above: Order Comment: PER R N MELLO DRAW AT 729. SMB 0444. Performed By: #### P TT, CBC, CK, PT, HS TROP, CMP, BNP #### [facility] [address] [place] [address] Carbon dioxide, total [Moles /volume] in Serum or PlasmaOrdered By: Everett Lawson on 03-14-2024 CO2 [Moles/Vol] 26.4 mmol/L Normal 21.0-31.0 [facility] Comment on above: Order Comment: PER R N MELLO DRAW AT 729. SMB 0444. Performed By: #### P TT, CBC, CK, PT, HS TROP, CMP, BNP #### [facility] [address] [place] [address] [place] Chloride [Moles/volume] in S [place] or PlasmaOrdered By: Everett Lawson on 03-14-2024 Chloride [Moles/Vol] 107 mmol/L Normal 98-107 [facility] Comment on above: Order Comment: PER R N MELLO DRAW AT 729. SMB 0444. Performed By: #### P TT, CBC, CK, PT, HS TROP, CMP, BNP #### [facility] [address] [place] [address] [place] Creatinine [Mass/volume] in Serum or PlasmaOrdered By: Everett Lawson on 03-14-2024 Creatinine [Mass/Vol] 1.09 mg/dL Normal 0.60-1.20 [facility] Comment on above: Order Comment: PER R N MELLO DRAW AT 729. SMB 0444. Performed By: #### P TT, CBC, CK, PT, HS TROP, CMP, BNP #### [facility] [address] Glucose [Mass/volume] in Ser um or PlasmaOrdered By: Everett Lawson on 03-14-2024 Glucose [Mass/Vol] 93 mg/dL Normal 70-100 [facility] Comment on above: ADA recommended refe rence rangeRandom Glucose Reference Range is dependent on time and content of last meal. Glucose of more than 200 mg/dL in a nonstressed, ambulatory subject supports the diagnosis of Diabetes Mellitus. Order Comment: PER R N MELLO DRAW AT 0730. SMB 0444. Result Comment: [place] om Glucose Reference Range is dependent on time and content of last meal. Glucose of more than 200 mg/dL in a nonstressed, ambulatory subject supports the diagnosis of Diabetes Mellitus. ADA recommended reference range Performed By: #### P TT, CBC, CK, PT, HS TROP, CMP, BNP #### [facility] [address] [place] [address] No Panel InformationOrdered By: Everett Lawson on 03-14-2024 Estimated GFR (CKD-EPI) 49.475 mL/Min [facility] Creatinine Clearance (Chem 30.32 [facility] Potassium [Moles/volume] in Serum or PlasmaOrdered By: Everett Lawson on 03-14-2024 Potassium [Moles/Vol] 3.6 mmol/L Normal 3.5-5.1 [facility] Comment on above: Order Comment: PER R N MELLO DRAW AT 0730. SMB 0444. Performed By: #### P TT, CBC, CK, PT, HS TROP, CMP, BNP #### [address] Serum or plasma anion gap de terminationOrdered By: Everett Lawson on 03-14-2024 Anion gap [Moles/Vol] 9.2 mmol/L Normal 6.0-15.0 [facility] Comment on above: Order Comment: PER R N MELLO DRAW AT 0730. SMB 0444. Performed By: #### P TT, CBC, CK, PT, HS TROP, CMP, BNP #### [facility] [address] Sodium [Moles/volume] in Ser um or PlasmaOrdered By: Everett Lawson on 03-14-2024 Sodium [Moles/Vol] 139 mmol/L Normal 136-145 [facility] Comment on above: Order Comment: PER R N MELLO DRAW AT 0730. SMB 0444. Performed By: #### P TT, CBC, CK, PT, HS TROP, CMP, BNP #### [facility] [address] Urea nitrogen [Mass/volume] in Serum or PlasmaOrdered By: Everett Lawson on 03-14-2024 Urea nitrogen [Mass/Vol] 27 mg/dL High 7-25 [facility] Comment on above: Order Comment: PER R N MELLO DRAW AT 0730. SMB 0444. Performed By: #### P TT, CBC, CK, PT, HS TROP, CMP, BNP #### [address] Basic Metabolic Panelon 02-22 Anion gap [Moles/Vol] 13.3 mmol/L Normal 6.0-15.0 [facility] Comment on above: Performed By: #### B MP #### [address] Calcium [Mass/Vol] 8.5 mg/dL Low 8.6-10.3 [facility] Comment on above: Performed By: #### B MP #### [place] [address] [place] Chloride [Moles/Vol] 106 mmol/L Normal 98-107 [facility] Comment on above: Performed By: #### B MP #### [address] CO2 [Moles/Vol] 25.4 mmol/L Normal 21.0-31.0 [facility] Comment on above: Performed By: #### B MP #### [address] Creatinine [Mass/Vol] 1.06 mg/dL Normal 0.60-1.20 [facility] Comment on above: Performed By: #### B MP #### [place] [address] [place] Creatinine Clr Calc Pharmacy 28.75 Normal [facility] Comment on above: Result Comment: PERF ORMED BY: [place] [address] PATHOLOGIST DIRECTOR [employer] CHRISTIANE EVANS M.D. Performed By: #### B MP #### [place] [address] [place] GFR/1.73 sq M.predicted MDRD (S/P/Bld) [Vol rate/Area] 51.160 mL/min/{1.73_m2} Normal [facility] Comment on above: Performed By: #### B MP #### [address] Glucose [Mass/Vol] 91 mg/dL Normal 70-100 [facility] Comment on above: Result Comment: [facility] Glucose Reference Range is dependent on time and content of last meal. Glucose of more than 200 mg/dL in a nonstressed, ambulatory subject supports the diagnosis of Diabetes Mellitus. ADA recommended reference range Performed By: #### B MP #### [place] [address] [place] Potassium [Moles/Vol] 3.7 mmol/L Normal 3.5-5.1 [facility] Comment on above: Performed By: #### B MP #### [place] [address] [place] Sodium [Moles/Vol] 141 mmol/L Normal 136-145 [facility] Comment on above: Performed By: #### B MP #### [address] Urea nitrogen [Mass/Vol] 25 mg/dL Normal 7-25 [facility] Comment on above: Performed By: #### B MP #### [place] [address] [place] Lactoferrin, Stool WBCon Lactoferrin, Stool WBC LACTOFERRIN Negative for Fecal Lactoferrin Immune suppression may cause reduced WBC counts, leading to a false negative result. ---- Reference range = Negative PERFORMED BY: [place] [address] PATHOLOGIST DIRECTOR [employer] CHRISTIANE EVANS M.D. Normal [facility] Comment on above: Performed By: #### P TT, CBC, CK, PT, HS TROP, CMP, BNP #### [address] Stool lactoferrin detectionO rdered By: Glenn Woods on 03-13-2024 Lactoferrin Ql (Stl) [facility] Basic Metabolic Panelon 02-22 Anion gap [Moles/Vol] 9.4 mmol/L Normal 6.0-15.0 [facility] Comment on above: Performed By: #### B MP #### [address] Calcium [Mass/Vol] 8.6 mg/dL Normal 8.6-10.3 [facility] Comment on above: Performed By: #### B MP #### [address] Chloride [Moles/Vol] 106 mmol/L Normal 98-107 [facility] Comment on above: Performed By: #### B MP #### [address] CO2 [Moles/Vol] 25.4 mmol/L Normal 21.0-31.0 [facility] Comment on above: Performed By: #### B MP #### [address] Creatinine [Mass/Vol] 1.10 mg/dL Normal 0.60-1.20 [facility] Comment on above: Performed By: #### B MP #### [place] [address] [place] Creatinine Clr Calc Pharmacy 27.70 Normal [facility] Comment on above: Result Comment: PERF ORMED BY: [place] [address] PATHOLOGIST DIRECTOR [employer] CHRISTIANE EVANS M.D. Performed By: #### B MP #### [place] [address] [place] GFR/1.73 sq M.predicted MDRD (S/P/Bld) [Vol rate/Area] 48.936 mL/min/{1.73_m2} Normal [facility] Comment on above: Performed By: #### B MP #### [address] Glucose [Mass/Vol] 86 mg/dL Normal 70-100 [facility] Comment on above: Result Comment: [facility] Glucose Reference Range is dependent on time and content of last meal. Glucose of more than 200 mg/dL in a nonstressed, ambulatory subject supports the diagnosis of Diabetes Mellitus. ADA recommended reference range Performed By: #### B MP #### [address] Potassium [Moles/Vol] 3.8 mmol/L Normal 3.5-5.1 [facility] Comment on above: Performed By: #### B MP #### [address] Sodium [Moles/Vol] 137 mmol/L Normal 136-145 [facility] Comment on above: Performed By: #### B MP #### [address] Urea nitrogen [Mass/Vol] 29 mg/dL High 7-25 [facility] Comment on above: Performed By: #### B MP #### [address] ECG 12 lead ECGon 03-12-2024 ECG 12 lead ECG [facility] [place] [address] [place] [id number] Electrocardiograph Report Signed Patient: Milind Tate MR#: [id number] : 1935 Acct:[id number] Age/Sex: 88 / F ADM Date: 03/09/24 Loc: Room: [address] [place] [address] Type: ADM IN Attending Dr: Everett Lawson DO Ordering Provider: Everett Lawson DO Date of Service: 03/12/24 ECG/ECG 12 lead ECG: Takotsubo CMP Copies to: Test Reason : Blood Pressure : / mmHG Vent. 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) Abnormal ECG When compared with ECG of 11-MAR-2024 07:30, Confirmed by Prabha Lipscomb ([id number]) on 03/12/2024 5:16:13 PM Referred By: Electronically Signed By:Prabha Lipscomb Transcribed By: MUS Signed By Prabha Lipscomb MD 4 1716 Normal [facility] Basic Metabolic Panelon 02-21 Anion gap [Moles/Vol] 10.5 mmol/L Normal 6.0-15.0 [facility] Comment on above: Performed By: #### P TT, CBC, CK, PT, HS TROP, CMP, BNP #### [facility] [address] [place] [id number] [place] Calcium [Mass/Vol] 8.7 mg/dL Normal 8.6-10.3 [facility] Comment on above: Performed By: #### P TT, CBC, CK, PT, HS TROP, CMP, BNP #### [facility] [address] [place] [address] [place] Chloride [Moles/Vol] 104 mmol/L Normal 98-107 [facility] Comment on above: Performed By: #### P TT, CBC, CK, PT, HS TROP, CMP, BNP #### [address] CO2 [Moles/Vol] 26.6 mmol/L Normal 21.0-31.0 [facility] Comment on above: Performed By: #### P TT, CBC, CK, PT, HS TROP, CMP, BNP #### [address] Creatinine [Mass/Vol] 1.25 mg/dL High 0.60-1.20 [facility] Comment on above: Performed By: #### P TT, CBC, CK, PT, HS TROP, CMP, BNP #### [address] Creatinine Clr Calc Pharmacy 24.38 Normal [facility] Comment on above: Result Comment: PERF ORMED BY: [place] [address] PATHOLOGIST DIRECTOR [employer] CHRISTIANE EVANS M.D. Performed By: #### P TT, CBC, CK, PT, HS TROP, CMP, BNP #### [address] GFR/1.73 sq M.predicted MDRD (S/P/Bld) [Vol rate/Area] 41.976 mL/min/{1.73_m2} Normal [facility] Comment on above: Performed By: #### P TT, CBC, CK, PT, HS TROP, CMP, BNP #### [address] Glucose [Mass/Vol] 114 mg/dL High 70-100 [facility] Comment on above: Result Comment: [place] Glucose Reference Range is dependent on time and content of last meal. Glucose of more than 200 mg/dL in a nonstressed, ambulatory subject supports the diagnosis of Diabetes Mellitus. ADA recommended reference range Performed By: #### P TT, CBC, CK, PT, HS TROP, CMP, BNP #### [address] Potassium [Moles/Vol] 4.1 mmol/L Normal 3.5-5.1 [facility] Comment on above: Performed By: #### P TT, CBC, CK, PT, HS TROP, CMP, BNP #### [facility] [address] Sodium [Moles/Vol] 137 mmol/L Normal 136-145 [facility] Comment on above: Performed By: #### P TT, CBC, CK, PT, HS TROP, CMP, BNP #### [facility] [address] Urea nitrogen [Mass/Vol] 28 mg/dL High 7-25 [facility] Comment on above: Performed By: #### P TT, CBC, CK, PT, HS TROP, CMP, BNP #### [facility] [address] ECG 12 lead ECGon 03-11-2024 ECG 12 lead ECG [facility] [place] [address] [place] [address] Electrocardiograph Report Signed Patient: Milind Tate MR#: [id number] : 1935 Acct:[id number] Age/Sex: 88 / F ADM Date: 03/09/24 Loc: Room: [address] [place] [address] Type: ADM IN Attending Dr: Everett Lawson DO Ordering Provider: Everett Lawson DO Date of Service: 03/11/24 ECG/ECG 12 lead ECG: [place]o CMP Copies to: Test Reason : Blood Pressure : / mmHG Vent. 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) T wave abnormality, consider lateral ischemia Abnormal ECG When compared with ECG of 10-MAR-2024 07:19, (Unconfirmed) Current undetermined rhythm precludes rhythm comparison, needs review Questionable change in QRS axis T wave inversion more evident in Anterolateral leads QT has lengthened Confirmed by Aj Smith ([id number]) on 03/11/2024 8:22:46 PM Referred By: Electronically Signed By:Aj Smith Transcribed By: MUS Signed By Aj Smith MD 03/11/242021 Normal [facility] Bacteria [Presence] in Urine by AutomatedOrdered By: Pinky Nicole on 03-10-2024 Bacteria Auto Ql (U) 4+ [HPF] High None Seen [facility] Basic Metabolic Panelon 02-21 Anion gap [Moles/Vol] 13.4 mmol/L Normal 6.0-15.0 [facility] Comment on above: Performed By: #### B MP #### [address] Calcium [Mass/Vol] 9.3 mg/dL Normal 8.6-10.3 [facility] Comment on above: Performed By: #### B MP #### [facility] [address] [place] [address] [place] Chloride [Moles/Vol] 102 mmol/L Normal 98-107 [facility] Comment on above: Performed By: #### B MP #### [facility] [address] CO2 [Moles/Vol] 25.7 mmol/L Normal 21.0-31.0 [facility] Comment on above: Performed By: #### B MP #### [facility] [address] [place] [address] [place] Creatinine [Mass/Vol] 1.13 mg/dL Normal 0.60-1.20 [facility] Comment on above: Performed By: #### B MP #### [facility] [address] [place] [address] [place] Creatinine Clr Calc Pharmacy 26.97 Normal [facility] Comment on above: Result Comment: PERF ORMED BY: [place] [address] PATHOLOGIST DIRECTOR [employer] CHRISTIANE EVANS M.D. Performed By: #### B MP #### [facility] [address] [place] [address] [place] GFR/1.73 sq M.predicted MDRD (S/P/Bld) [Vol rate/Area] 47.381 mL/min/{1.73_m2} Normal [facility] Comment on above: Performed By: #### B MP #### [address] Glucose [Mass/Vol] 133 mg/dL High 70-100 [facility] Comment on above: Result Comment: [place] Glucose Reference Range is dependent on time and content of last meal. Glucose of more than 200 mg/dL in a nonstressed, ambulatory subject supports the diagnosis of Diabetes Mellitus. ADA recommended reference range Performed By: #### B MP #### [address] Potassium [Moles/Vol] 5.1 mmol/L Significan t change down 3.5-5.1 [facility] Comment on above: Performed By: #### B MP #### [place] [address] [place] Sodium [Moles/Vol] 136 mmol/L Normal 136-145 [facility] Comment on above: Performed By: #### B MP #### [address] Urea nitrogen [Mass/Vol] 23 mg/dL Normal 7-25 [facility] Comment on above: Performed By: #### B MP #### [address] Bilirubin Test strip Ql (U)O rdered By: Pinky Nicole on 03-10-2024 Bilirubin Ql (U) Negative Negative [facility] Color of Urine by AutoOrdere d By: Pinky Nicole on 03-10-2024 Color (U) Yellow Normal Yellow [facility] Comment on above: Order Comment: Name Collection Type:: Voided Performed By: #### P TT, CBC, CK, PT, HS TROP, CMP, BNP #### [place] [address] [place] Dipstick and Microscopicon 0 03-10-2024 Appearance (U) Cloudy Critically abnormal Clear [facility] Comment on above: Order Comment: Name Collection Type:: Voided Performed By: #### P TT, CBC, CK, PT, HS TROP, CMP, BNP #### [address] Bacteria,Urine 4+ High None Seen [facility] Comment on above: Order Comment: Name Collection Type:: Voided Performed By: #### P TT, CBC, CK, PT, HS TROP, CMP, BNP #### [address] Bilirubin,Urine Negative Normal Negative [facility] Comment on above: Order Comment: Name Collection Type:: Voided Performed By: #### P TT, CBC, CK, PT, HS TROP, CMP, BNP #### [address] Glucose Ql (U) Normal Normal Normal [facility] Comment on above: Order Comment: Name Collection Type:: Voided Performed By: #### P TT, CBC, CK, PT, HS TROP, CMP, BNP #### [address] Hyaline Casts,Urine 0-8 Normal 0-8 [facility] Comment on above: Order Comment: Name Collection Type:: Voided Result Comment: PERF ORMED BY: [place] [address] PATHOLOGIST DIRECTOR [employer] CHRISTIANE EVANS M.D. Performed By: #### P TT, CBC, CK, PT, HS TROP, CMP, BNP #### [address] Ketones Ql (U) Negative Normal Negative [facility] Comment on above: Order Comment: Name Collection Type:: Voided Performed By: #### P TT, CBC, CK, PT, HS TROP, CMP, BNP #### [address] Leukocyte esterase Test strip Ql (U) 2+ High Negative [facility] Comment on above: Order Comment: Name Collection Type:: Voided Performed By: #### P TT, CBC, CK, PT, HS TROP, CMP, BNP #### [address] Nitrite,Urine Positive High Negative [facility] Comment on above: Order Comment: Name Collection Type:: Voided Performed By: #### P TT, CBC, CK, PT, HS TROP, CMP, BNP #### [address] Occult Blood,Urine Negative Normal Negative [facility] [facility] Comment on above: Order Comment: Name Collection Type:: Voided Result Comment: PERF ORMED BY: [place] [address] PATHOLOGIST DIRECTOR [employer] CHRISTIANE EVANS M.D. Performed By: #### P TT, CBC, CK, PT, HS TROP, CMP, BNP #### [address] Protein,Urine Negative Normal Negative [facility] Comment on above: Order Comment: Name Collection Type:: Voided Performed By: #### P TT, CBC, CK, PT, HS TROP, CMP, BNP #### [address] RBC,Urine 3-4 Normal 0-4 [facility] Comment on above: Order Comment: Name Collection Type:: Voided Performed By: #### P TT, CBC, CK, PT, HS TROP, CMP, BNP #### [address] Specificy [place],Urine 1.031 High 1.001-1.03 0 [facility] Comment on above: Order Comment: Name Collection Type:: Voided Performed By: #### P TT, CBC, CK, PT, HS TROP, CMP, BNP #### [address] Squamous Epithelial Cell,Urine 1-2 Normal 0-2 [facility] Comment on above: Order Comment: Name Collection Type:: Voided Performed By: #### P TT, CBC, CK, PT, HS TROP, CMP, BNP #### [facility] [address] Urobilinogen,Urine Normal Normal Normal [facility] Comment on above: Order Comment: Name Collection Type:: Voided Performed By: #### P TT, CBC, CK, PT, HS TROP, CMP, BNP #### [facility] [address] [place] [id number] [place] WBC,Urine 5-9 High 0-4 [facility] Comment on above: Order Comment: Name Collection Type:: Voided Performed By: #### P TT, CBC, CK, PT, HS TROP, CMP, BNP #### [facility] [address] [place] [id number] [facility] ECG 12 lead ECGon 03-10-2024 ECG 12 lead ECG [facility] [place] [address] [place] [address] Electrocardiograph Report Signed Patient: Milind Tate MR#: [id number] : 1935 Acct:[id number] Age/Sex: 88 / F ADM Date: 03/09/24 Loc: Room: [address] [place] [address] Type: ADM IN Attending Dr: Everett Lawson DO Ordering Provider: Everett Lawson DO Date of Service: 03/10/24 ECG/ECG 12 lead ECG: Takotsubo CMP Copies to: Test Reason : Blood Pressure : / mmHG Vent. 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) Abnormal ECG When compared with ECG of 09-MAR-2024 22:38, (Unconfirmed) fusion complexes are no longer present premature ventricular complexes are no longer present Confirmed by Aj Smith ([id number]) on 03/11/2024 8:22:43 PM Referred By: Electronically Signed By:Aj Smith Transcribed By: MUS Signed By Aj Smith MD 03/11/242021 Normal [facility] echo transthoracicon [facility] echo transthoracic [facility] [place] [address] Echocardiogram Signed Patient: Milind Tate MR#: [id number] : 1935 Acct:[id number] Age/Sex: 88 / F ADM Date: 03/09/24 Loc: Room: [address] [place] [address] Type: ADM IN Attending Dr: Everett Lawson DO Ordering Provider: Everett Lawson DO Date of Service: 03/10/24 [facility] echo transthoracic: recurrent Takotsubo CMP Copies to: MD Everett Jimenez DO Milind Raymond 11:34 AM Patient Location: : 1935 Gender: Female (MM/DD/YYYY) Age: 88 Years Ordering Physician: Everett Lawson Height: 61 in Weight: 125.443 lb Performed By: MILAGROS Bragg BSA: 1.55 m2 BP: 131 / 84 mmHg HR: 77 bpm 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 Ejection Fraction = 15-20%. Classic regional motion abnormality suggestive of apical ballooning (Takotsubo Syndrome). There is mild to moderate tricuspid regurgitation. There is mild mitral regurgitation with mild HAMLET. Colorflow across the atrial septum suggests a small PFO. Right ventricular systolic pressure is consistent with mild pulmonary hypertension. There is no comparison study available. Procedure/Quality: A two-dimensional transthoracic echocardiogram with color flow, Doppler and injection of contrast agent Definity was performed. The study was technically good in quality. Left Ventricle: The left ventricular size is normal. The left ventricular thickness is normal. Ejection Fraction = 15-20%. The LV ejection fraction is severely decreased . 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 No left ventricular thrombus or mass is seen. Left Atrium: The left atrium appears normal in size. Colorflow a.cross the atrial septum suggests a small atrial septal defect or Patent Foramen Ovale. Right Atrium: The right atrium appears normal in size. Right Ventricle: The right ventricle is normal in size and function. Aortic Valve: The aortic valve is trileaflet. The aortic valve is mildly sclerotic. No hemodynamically significant valvular aortic stenosis. No aortic regurgitation is present. Mitral Valve: The mitral valve is normal in structure. There is systolic anterior motion of the mitral valve. No significant mitral valve stenosis. There is mild mitral regurgitation. Tricuspid Valve: The tricuspid valve is normal in structure. There is mild to moderate tricuspid regurgitation. Right ventricular systolic pressure is consistent with mild pulmonary hypertension. Pulmonic Valve: The pulmonic valve is not well visualized. Mild pulmonic valvular regurgitation. Arteries: The aortic root is normal size. Pericardium/Pleura: No pericardial effusion seen. There is no pleural effusion. IVC/Hepatic Veins: The inferior vena cava is normal in size, with a normal collapsibility index. MMode/2D Measurements Calculations IVSd (0.7-1.1 cm): 1.00 cm LVIDd (3.7-5.4 cm): 4.5 cm LVPWd (0.7-1.1 cm): 1.03 cm LVIDs (2.3-3.6 cm): 3.6 cm LA dimension (2.3-4.0 cm): 3.8 Ao root diam (2.0-3.2 cm): 3.7 cm cm FS: 19.0 % Ao root area: 11.0 cm2 EDV(Teich): 92.7 ml LVOT diam: 2.02 cm ESV(Teich): 56.3 ml LVOT area: 3.2 cm2 EF(Teich): 39.3 % LAV(MOD-sp2): 31.9 ml LAV(MOD-sp4): 47.5 ml LA A2 area: 13.8 cm2 LA A4 area: 18.2 cm2 LA length (vol): 5.6 cm LA vol: 38.3 ml LA vol index: 24.7 ml/m2 Doppler Measurements Calculations MV E max jose: 73.3 cm/sec Ao V2 max: 109.8 cm/sec MV A max jose: 57.4 cm/sec Ao max P.8 mmHg MR max jose: 435.3 cm/sec Ao mean P.7 mmHg MV dec time: 0.24 sec Ao V2 mean: 76.5 cm/sec MV dec slope: 308.3 cm/sec?? Ao V2 VTI: 19.2 cm E/E' lat: 8.1 NBA(I,D): 2.7 cm2 E/E' med: 10.9 NBA(V,D): 2.39 cm2 TV max P.0 mmHg LV V1 max: 81.8 cm/sec TR max jose: 339.1 cm/sec LV V1 max P.7 mmHg TR max P.0 mmHg LV V1 mean: 59.9 cm/sec RAP systole: 5.0 mmHg LV V1 mean P.64 mmHg LV V1 VTI: 16.1 cm + + + --+ + : Electronically : : : : signed by: Prabha : : Ruel : : : : : : on: 03/10/2024, : : 6:35 PM : Transcribed By: SCV Performed At: 03/10/24 1134 Signed By: Prabha Lipscomb MD 03/10/24 7102 Normal [facility] Erythrocytes [#/area] in Uri ne sediment by Automated countOrdered By: Pinky Nicole on 03-10-2024 RBC Auto (Urine sed) [#/Area] 3-4 [HPF] 0-4 [facility] Ketones Auto test strip (U) [Mass/Vol]Ordered By: Pinky Nicole on 03-10-2024 Ketones (U) [Mass/Vol] Negative Negative Fi [facility] Laboratory - UrinalysisOrder ed By: Pinky Nicole on 03-10-2024 Hyaline casts LM Ql (Urine sed) 0-8 [LPF] 0-8 [facility] Leukocytes [#/area] in Urine sediment by Automated countOrdered By: Pinky Nicole on 03-10-2024 WBC Auto (Urine sed) [#/Area] 5-9 [HPF] High 0-4 [facility] Nitrite Test strip Ql (U)Ord ered By: Pinky Nicole on 03-10-2024 Nitrite Ql (U) Positive High Negative [facility] Protein Auto test strip (U) [Mass/Vol]Ordered By: Pinky Nicole on 03-10-2024 Protein (U) [Mass/Vol] Negative Negative [facility] Specific gravity Auto test s trip (U) [Rel density]Ordered By: Pinky Nicole on 03-10-2024 Specific gravity (U) [Rel density] 1.031 High 1.001-1.03 0 [facility] Squamous epithelial cells de tection in urine sediment by light microscopyOrdered By: Pinky Nicole on 03-10-2024 Epithelial cells.squamous LM Ql (Urine sed) 1-2 [HPF] 0-2 [facility] Troponin I High Sensitivityo n 03-10-2024 Troponin I High Sensitivity 8379.9 pg/mL Off scale high 0.0-15.0 [facility] Comment on above: Order Comment: DRAW AT 0648 PER SAVANAH LITTLE Result Comment: Crit ical Result : Called to and read back by: MIGUEL JIMENEZ at: 03/10/2024 08:01:08 by:MILA PERFORMED BY: [place] [address] PATHOLOGIST DIRECTOR [employer] CHRISTIANE EVANS M.D. Performed By: #### P TT, CBC, CK, PT, HS TROP, CMP, BNP #### [address] Troponin I High Sensitivity 7730.0 pg/mL Off scale high 0.0-15.0 [facility] Comment on above: Result Comment: Crit ical Result : Called to and read back by: MELANIE GOMEZ at: 03/10/2024 06:06:38 by:[id number] PERFORMED BY: [place] [address] PATHOLOGIST DIRECTOR [employer] CHRISTIANE EVANS M.D. Performed By: #### P TT, CBC, CK, PT, HS TROP, CMP, BNP #### [facility] [address] [place], [place] [id number] [facility] Troponin I High Sensitivity 7199.8 pg/mL Off scale high 0.0-15.0 [facility] Comment on above: Order Comment: DRAW AT 0157 Result Comment: Resu lts called at 0219 on 03/10/24 PERFORMED BY: [place] [address] PATHOLOGIST DIRECTOR [employer] CHRISTIANE EVANS M.D. Performed By: #### P TT, CBC, CK, PT, HS TROP, CMP, BNP #### [facility] [address] [place] [address] [place] Troponin I.cardiac [Mass/vol ume] in Serum or Plasma by Detection limit <= 0.01 ng/Ordered By: Everett Lawson on 03-10-2024 Troponin I.cardiac DL <= 0.01 ng/mL [Mass/Vol] 8379.9 pg/mL High 0.0-15.0 [facility] Comment on above: Critical Result : Ca lled to and read back by: MIGUEL JIMENEZ at: 03/10/2024 08:01:08 by:MILA Urine Cultureon 03-10-2024 Bacteria identified Cx Nom (U) ORGANISM: Escherichia coli (O:ESCCOL) [place] Count >100,000 ORGANISM: Escherichia coli (O:ESCCOL) [place] Count <10,000 Aerobic SAURABH Charge (NMIC56) SUSCEPTIBILITY ORGANISM: O:ESCCOL ANTIBIOTIC INTERPRETATION SAURABH Amikacin S <16 Amoxacillin/K Clavulanate S <8 Ampicillin S <8 Ampicillin/Sulbactam S <4 Aztreonam S <4 Cefazolin S 4 Cefepime S <2 Ceftazidime S <1 Ceftazidime/Avibactam S <4 Ceftolozane/Tazobactam S <2 Ceftriaxone S <1 Cefuroxime S 8 Ciprofloxacin S <0.25 Ertapenem S <0.5 Gentamicin S <2 Levofloxacin S <0.5 Meropenem S <1 Meropenem/Vaborbactam S <2 Nitrofurantoin S <32 Piperacillin/Tazobactam S <8 Tetracycline S <4 Tigecycline S <2 Tobramycin S <2 Trimethoprim/Sulfamethoxa zole S <0.5 Aerobic SAURABH Charge (NMIC56) SUSCEPTIBILITY ORGANISM: O:ESCCOL ANTIBIOTIC INTERPRETATION SAURABH Amikacin S <16 Amoxacillin/K Clavulanate S <8 Ampicillin S <8 Ampicillin/Sulbactam S <4 Aztreonam S <4 Cefazolin S <2 Cefepime S <2 Ceftazidime S <1 Ceftazidime/Avibactam S <4 Ceftolozane/Tazobactam S <2 Ceftriaxone S <1 Cefuroxime S <4 Ciprofloxacin S <0.25 Ertapenem S <0.5 Gentamicin S <2 Levofloxacin S <0.5 Meropenem S <1 Meropenem/Vaborbactam S <2 Nitrofurantoin S <32 Piperacillin/Tazobactam S <8 Tetracycline S <4 Tigecycline S <2 Tobramycin S <2 Trimethoprim/Sulfamethoxa zole S <0.5 S = SUSCEPTIBLE I = INTERMEDIATE R = RESISTANT BLANK = DATA NOT AVAILABLE, OR DRUG NOT ADVISABLE OR TESTED R* = RESISTANCE DUE TO EXTENDED SPECTRUM BETA-LACTAMASES ESBL = EXTENDED SPECTRUM BETA-LACTAMASE TFG = THYMIDINE-DEPENDENT STRAIN SHELDON = BETA-LACTAMASE POSITIVE IB = INDUCIBLE BETA-LACTAMASE. APPEARS IN PLACE OF 'S' WITH SPECIES KNOWN TO POSSESS INDUCIBLE BETA-LACTAMASES. POTENTIALLY THEY MAY BECOME RESISTANT TO ALL B-LACTAM DRUGS. PERFORMED BY: [place] [address] PATHOLOGIST DIRECTOR [employer] CHRISTIANE EVANS M.D. Normal [facility] Comment on above: Performed By: #### P TT, CBC, CK, PT, HS TROP, CMP, BNP #### [facility] [address] Urine clarity by refractomet ry automatedOrdered By: Pinky Nicole on 03-10-2024 Clarity Refractometry automated (U) Cloudy Abnormal Clear [facility] Urine culture routineOrdered By: Pinky Nicole on 03-10-2024 Bacteria identified Cx Nom (U) Escherichia coli#2 Abnormal [facility] Urine glucose measurement by automated test strip (mass/volume)Ordered By: Pinky Nicole on 03-10-2024 Glucose Auto test strip (U) [Mass/Vol] Normal mg/dL Normal [facility] Urine hemoglobin detection b y automated test stripOrdered By: Pinky Nicole on 03-10-2024 Hemoglobin Auto test strip Ql (U) Negative Negative [facility] Urine leukocyte esterase det ection by automated test stripOrdered By: Pinky Nicole on 03-10-2024 Leukocyte esterase Auto test strip Ql (U) 2+ High Negative [facility] Urine pH measurement by auto mated test stripOrdered By: Pinky Nicole on 03-10-2024 pH (U) 5.5 [pH] Normal 5.0-9.0 [facility] Comment on above: Order Comment: Name Collection Type:: Voided Performed By: #### P TT, CBC, CK, PT, HS TROP, CMP, BNP #### [facility] [address] Urobilinogen Auto test strip (U) [Mass/Vol]Ordered By: Pinky Nicole on 03-10-2024 Urobilinogen (U) [Mass/Vol] Normal mg/dL Normal [facility] Activated partial thrombopla stin time (aPTT) in platelet poor plasma by coagulation aOrdered By: Aravind Jackson on 03-09-2024 aPTT Coag (PPP) [Time] 27.9 s 25.1-36.5 [facility] Comment on above: A hematocrit value g reater than 55% may lead to inaccurate results in coagulation testing. Patients having hematocrit values >55% require a special collection tube for coagulation studies. Please contact the laboratory at [phone] for redraw instructions. Alanine aminotransferase [En zymatic activity/volume] in Serum or PlasmaOrdered By: Aravind Jackson on 03-09-2024 ALT [Catalytic activity/Vol] 12 U/L Normal 7-52 [facility] Comment on above: Performed By: #### P TT, CBC, CK, PT, HS TROP, CMP, BNP #### [address] Albumin [Mass/volume] in Ser um or Plasma by Bromocresol green (BCG) dye binding methoOrdered By: Aravind Jackson on 03-09-2024 Albumin BCG dye [Mass/Vol] 4.0 g/dL 3.5-5.7 [facility] Alkaline phosphatase [Enzyma tic activity/volume] in Serum or PlasmaOrdered By: Aravind Jackson on 03-09-2024 ALP [Catalytic activity/Vol] 71 U/L Normal 34-104 [facility] Comment on above: Performed By: #### P TT, CBC, CK, PT, HS TROP, CMP, BNP #### [address] Aspartate aminotransferase [ Enzymatic activity/volume] in Serum or PlasmaOrdered By: Aravind Jackson on 03-09-2024 AST [Catalytic activity/Vol] 24 U/L Normal 13-39 [facility] Comment on above: Performed By: #### P TT, CBC, CK, PT, HS TROP, CMP, BNP #### [address] Automated basophil %Ordered By: Aravind Jackson on 03-09-2024 Basophils/100 WBC (Bld) 0.9 % Normal . [facility] Comment on above: Performed By: #### P TT, CBC, CK, PT, HS TROP, CMP, BNP #### [place] [id number] [place] Automated basophil countOrde red By: Aravind Jackson on 03-09-2024 Basophils (Bld) [#/Vol] 0.1 10*3/uL Normal 0.0-0.2 [facility] Comment on above: Result Comment: PERF ORMED BY: [place] [address] PATHOLOGIST DIRECTOR [employer] CHRISTIANE EVANS M.D. Performed By: #### P TT, CBC, CK, PT, HS TROP, CMP, BNP #### [address] Automated blood monocyte cou ntOrdered By: Aravind Jackson on 03-09-2024 Monocytes (Bld) [#/Vol] 0.9 10*3/uL High 0.0-0.8 [facility] Comment on above: Performed By: #### P TT, CBC, CK, PT, HS TROP, CMP, BNP #### [address] Automated eosinophil %Ordere d By: Aravind Jackson on 03-09-2024 Eosinophils/100 WBC (Bld) 1.2 % Normal . [facility] Comment on above: Performed By: #### P TT, CBC, CK, PT, HS TROP, CMP, BNP #### [address] Automated eosinophil countOr dered By: Aravind Jackson on 03-09-2024 Eosinophils (Bld) [#/Vol] 0.1 10*3/uL Normal 0.0-0.45 [facility] Comment on above: Performed By: #### P TT, CBC, CK, PT, HS TROP, CMP, BNP #### [address] Automated monocyte %Ordered By: Aravind Jackson on 03-09-2024 Monocytes/100 WBC (Bld) 7.5 % Normal . [facility] Comment on above: Performed By: #### P TT, CBC, CK, PT, HS TROP, CMP, BNP #### [address] Automated neutrophil %Ordere d By: Aravind Jackson on 03-09-2024 Neutrophils/100 WBC (Bld) 54.7 % Normal . [facility] Comment on above: Performed By: #### P TT, CBC, CK, PT, HS TROP, CMP, BNP #### [facility] [address] BNP ser/plasOrdered By: Alessandro Jackson on 03-09-2024 Natriuretic peptide B (Bld) [Mass/Vol] 57.0 pg/mL Normal 5-100 [facility] Comment on above: Result Comment: PERF ORMED BY: [place] [address] PATHOLOGIST DIRECTOR [employer] CHRISTIANE EVANS M.D. Performed By: #### P TT, CBC, CK, PT, HS TROP, CMP, BNP #### [address] Bilirubin.total [Mass/volume ] in Serum or PlasmaOrdered By: Aravind Jackson on 03-09-2024 Bilirubin [Mass/Vol] 0.4 mg/dL Normal 0.3-1.0 [facility] Comment on above: Performed By: #### P TT, CBC, CK, PT, HS TROP, CMP, BNP #### [address] Calcium [Mass/volume] in Ser um or PlasmaOrdered By: Aravind Jackson on 03-09-2024 Calcium [Mass/Vol] 9.5 mg/dL Normal 8.6-10.3 [facility] Comment on above: Performed By: #### P TT, CBC, CK, PT, HS TROP, CMP, BNP #### [facility] [address] Carbon dioxide, total [Moles /volume] in Serum or PlasmaOrdered By: Aravind Jackson on 03-09-2024 CO2 [Moles/Vol] 20.9 mmol/L Low 21.0-31.0 [facility] Comment on above: Performed By: #### P TT, CBC, CK, PT, HS TROP, CMP, BNP #### [address] Chloride [Moles/volume] in [place] or PlasmaOrdered By: Aravind Jackson on 03-09-2024 Chloride [Moles/Vol] 105 mmol/L Normal 98-107 [facility] Comment on above: Performed By: #### P TT, CBC, CK, PT, HS TROP, CMP, BNP #### [address] Complete Blood Count Auto Di ffon 03-09-2024 Mean Corpuscular HGB Conc 33.4 g/dL Normal 32.0-35.0 [facility] Comment on above: Performed By: #### P TT, CBC, CK, PT, HS TROP, CMP, BNP #### [address] Monocytes/100 WBC (Bld) 19.33 % Normal 0.00-20.00 [facility] Comment on above: Performed By: #### P TT, CBC, CK, PT, HS TROP, CMP, BNP #### [address] NRBC% 0.1 /100{WBC} Normal 0-0.5 [facility] Comment on above: Performed By: #### P TT, CBC, CK, PT, HS TROP, CMP, BNP #### [address] Comprehensive Metabolic Pane reynaldo 03-09-2024 Albumin [Mass/Vol] 4.0 g/dL Normal 3.5-5.7 [facility] Comment on above: Performed By: #### P TT, CBC, CK, PT, HS TROP, CMP, BNP #### [address] Creatinine Clr Calc Pharmacy 27.07 Normal [facility] Comment on above: Result Comment: PERF ORMED BY: [place] [address] PATHOLOGIST DIRECTOR [employer] CHRISTIANE EVANS M.D. Performed By: #### P TT, CBC, CK, PT, HS TROP, CMP, BNP #### [facility] [address] [place] [address] [place] GFR/1.73 sq M.predicted MDRD (S/P/Bld) [Vol rate/Area] 41.976 mL/min/{1.73_m2} Normal [facility] Comment on above: Performed By: #### P TT, CBC, CK, PT, HS TROP, CMP, BNP #### [facility] [address] Creatine kinase [Enzymatic a ctivity/volume] in Serum or PlasmaOrdered By: Aravind Jackson on 03-09-2024 CK [Catalytic activity/Vol] 71 U/L Normal 30-223 [facility] Comment on above: Performed By: #### P TT, CBC, CK, PT, HS TROP, CMP, BNP #### [facility] [address] [place] [address] Creatinine [Mass/volume] in Serum or PlasmaOrdered By: Aravind Jackson on 03-09-2024 Creatinine [Mass/Vol] 1.25 mg/dL High 0.60-1.20 [facility] Comment on above: Performed By: #### P TT, CBC, CK, PT, HS TROP, CMP, BNP #### [address] ECG 12 lead ECGon 03-09-2024 ECG 12 lead ECG [facility] [place] [address] [place] [address] Electrocardiograph Report Signed Patient: Milind Tate MR#: [id number] : 1935 Acct:[id number] Age/Sex: 88 / F ADM Date: 03/09/24 Loc: Room: [address] [place] [address] Type: DIS IN Attending Dr: Everett Lawson DO Ordering Provider: Everett Lawson DO Date of Service: 03/09/24 ECG/ECG 12 lead ECG: prn ekg Copies to: Test Reason : Blood Pressure : / mmHG Vent. Rate : 114 BPM Atrial Rate : 114 BPM P-R Int : 202 ms QRS Dur : 136 ms QT Int : 424 ms P-R-T Axes : 041 030 012 degrees QTc Int : 584 ms Sinus tachycardia Poor data quality, interpretation may be adversely affected Nonspecific intraventricular block Abnormal ECG When compared with ECG of 09-MAR-2024 20:56, (Unconfirmed) Significant changes have occurred Confirmed by Aj Smith ([id number]) on 03/20/2024 10:06:02 PM Referred By: Electronically Signed By:Aj Smith Transcribed By: MUS Signed By Aj Smith MD 03/20/242205 Normal [facility] ECG 12 lead ECG [facility] [place] [address] Electrocardiograph Report Signed Patient: Milind Tate MR#: [id number] : 1935 Acct:[id number] Age/Sex: 88 / F ADM Date: 03/09/24 Loc: Room: [address] [place] [address] Type: ADM IN Attending Dr: Everett Lawson DO Ordering Provider: Aravind Jackson Jr, MD Date of Service: 03/09/24 ECG/ECG 12 lead ECG: STEMI/CHEST PAIN Copies to: Test Reason : Blood Pressure : 154/091 mmHG Vent. Rate : 094 BPM Atrial Rate : 083 BPM P-R Int : 182 ms QRS Dur : 072 ms QT Int : 424 ms P-R-T Axes : 080 -13 052 degrees QTc Int : 530 ms Normal sinus rhythm Low voltage QRS Inferior infarct , possibly acute Cannot rule out Anterior infarct , age undetermined Prolonged QT ACUTE MS / STEMI Consider right ventricular involvement in acute inferior infarct Abnormal ECG No previous ECGs available Confirmed by ARAVIND JACKSON MD ([id number]) on 03/11/2024 5:25:10 AM Referred By: Electronically Signed By:ARAVIND JACKSON MD Transcribed By: MUS Signed By Aravind Jackson Jr, MD [id number] Normal [facility] Erythrocyte distribution wid th [Ratio] by Automated countOrdered By: Aravind Jackson on 03-09-2024 Erythrocyte distribution width (RBC) [Ratio] 13.6 % Normal 11.9-15.3 [facility] Comment on above: Performed By: #### P TT, CBC, CK, PT, HS TROP, CMP, BNP #### [facility] [address] Erythrocytes [#/volume] in B lood by Automated countOrdered By: Aravind Jackson on 03-09-2024 RBC (Bld) [#/Vol] 4.34 10*6/uL Normal 3.60-5.00 [facility] Comment on above: Performed By: #### P TT, CBC, CK, PT, HS TROP, CMP, BNP #### [facility] [address] Glucose [Mass/volume] in Ser um or PlasmaOrdered By: Aravind Jackson on 03-09-2024 Glucose [Mass/Vol] 126 mg/dL High 70-100 [facility] Comment on above: ADA recommended refe rence rangeRandom Glucose Reference Range is dependent on time and content of last meal. Glucose of more than 200 mg/dL in a nonstressed, ambulatory subject supports the diagnosis of Diabetes Mellitus. Result Comment: [place] Glucose Reference Range is dependent on time and content of last meal. Glucose of more than 200 mg/dL in a nonstressed, ambulatory subject supports the diagnosis of Diabetes Mellitus. ADA recommended reference range Performed By: #### P TT, CBC, CK, PT, HS TROP, CMP, BNP #### [facility] [address] Hematocrit [Volume Fraction] of Blood by Automated countOrdered By: Aravind Jackson on 03-09-2024 Hematocrit (Bld) [Volume fraction] 39.9 % Normal 34.0-46.4 [facility] Comment on above: Performed By: #### P TT, CBC, CK, PT, HS TROP, CMP, BNP #### [facility] [address] [place] [address] [place] Hemoglobin [Mass/volume] in BloodOrdered By: Aravind Jackson on 03-09-2024 Hemoglobin (Bld) [Mass/Vol] 13.3 g/dL Normal 11.8-15.4 [facility] Comment on above: Performed By: #### P TT, CBC, CK, PT, HS TROP, CMP, BNP #### [facility] [address] INR in Platelet poor plasma by Coagulation assayOrdered By: Aravind Jackson on 03-09-2024 INR Coag (PPP) [Relative time] 0.9 {INR} Normal [facility] Comment on above: INR Therapeutic Rang e A) Pre- and Peroperative OAT started two weeks before surgery. NOT HIP SURGERY: 1.5 - 2.5 HIP SURGERY: 2 - 3B) Primary and secondary prevention of venous THROMBOSIS: 2 - 3C) Active venous thrombosis, pulmonary embolismand prevention of recurrent venous thrombosis: 2 - 3D) Prevention of arterial thromboembolismincluding patients with mechanical heart valves: 3 - 4.5 Result Comment: INR Therapeutic Range A) Pre- and Peroperative OAT started two weeks before surgery. NOT HIP SURGERY: 1.5 - 2.5 HIP SURGERY: 2 - 3 B) Primary and secondary prevention of venous THROMBOSIS: 2 - 3 C) Active venous thrombosis, pulmonary embolism and prevention of recurrent venous thrombosis: 2 - 3 D) Prevention of arterial thromboembolism including patients with mechanical heart valves: 3 - 4.5 Performed By: #### P TT, CBC, CK, PT, HS TROP, CMP, BNP #### [facility] [address] Leukocytes [#/volume] correc jey for nucleated erythrocytes in Blood by Automated counOrdered By: Aravind Jackson on 03-09-2024 WBC corrected for nucl RBC Auto (Bld) [#/Vol] 11.8 10*3/uL High 3.8-11.6 [facility] Leukocytes [#/volume] in Blo od by Automated countOrdered By: Aravind Jackson on 03-09-2024 WBC (Bld) [#/Vol] 11.8 10*3/uL High 3.8-11.6 [facility] Comment on above: Performed By: #### P TT, CBC, CK, PT, HS TROP, CMP, BNP #### [facility] [address] [place] [address] [place] Lymphocytes [#/volume] in Bl ood by Automated countOrdered By: Aravind Jackson on 03-09-2024 Lymphocytes (Bld) [#/Vol] 4.2 10*3/uL Normal 1.00-4.8 [facility] Comment on above: Performed By: #### P TT, CBC, CK, PT, HS TROP, CMP, BNP #### [address] Lymphocytes/100 leukocytes i n Blood by Automated countOrdered By: Aravind Jackson on 03-09-2024 Lymphocytes/100 WBC (Bld) 35.7 % Normal . [facility] Comment on above: Performed By: #### P TT, CBC, CK, PT, HS TROP, CMP, BNP #### [address] MCH [Entitic mass] by Automa jey countOrdered By: Aravind Jackson on 03-09-2024 MCH (RBC) [Entitic mass] 30.7 pg Normal 24.7-34.3 [facility] Comment on above: Performed By: #### P TT, CBC, CK, PT, HS TROP, CMP, BNP #### [address] MCHC Auto (RBC) [Mass/Vol]Or dered By: Aravind Jackson on 03-09-2024 MCHC (RBC) [Mass/Vol] 33.4 g/dL 32.0-35.0 [facility] MCV [Entitic volume] by Auto mated countOrdered By: Aravind Jackson on 03-09-2024 MCV (RBC) [Entitic vol] 92.0 fL Normal 80-100 [facility] Comment on above: Performed By: #### P TT, CBC, CK, PT, HS TROP, CMP, BNP #### [address] Monocyte distribution width [Entitic volume] in Blood by AutomatedOrdered By: Aravind Jackson on 03-09-2024 Monocyte distribution width Auto (Bld) [Entitic vol] 19.33 % 0.00-20.00 [facility] Neutrophils [#/volume] in Bl ood by Automated countOrdered By: Aravind Jackson on 03-09-2024 Neutrophils (Bld) [#/Vol] 6.5 10*3/uL Normal 1.8-7.7 [facility] Comment on above: Performed By: #### P TT, CBC, CK, PT, HS TROP, CMP, BNP #### [address] No Panel InformationOrdered By: Aravind Jackson on 03-09-2024 Estimated GFR (CKD-EPI) 41.976 mL/Min [facility] Creatinine Clearance (Chem 27.07 [facility] Nucleated erythrocytes [Pres ence] in Blood by Automated countOrdered By: Aravind Jackson on 03-09-2024 Nucleated RBC Auto Ql (Bld) 0.1 /100{WBC} 0-0.5 [facility] Partial Thromboplastin Timeo n 03-09-2024 aPTT Coag (Bld) [Time] 27.9 s Normal 25.1-36.5 [facility] Comment on above: Result Comment: A he matocrit value greater than 55% may lead to inaccurate results in coagulation testing. Patients having hematocrit values >55% require a special collection tube for coagulation studies. Please contact the laboratory at [phone] for redraw instructions. PERFORMED BY: [place] [address] PATHOLOGIST DIRECTOR [employer] CHRISTIANE EVANS M.D. Performed By: #### P TT, CBC, CK, PT, HS TROP, CMP, BNP #### [address] Platelet mean volume [Entiti c volume] in Blood by Automated countOrdered By: Aravind Jackson on 03-09-2024 Platelet mean volume (Bld) [Entitic vol] 7.0 fL Normal 6.3-10.7 [facility] Comment on above: Performed By: #### P TT, CBC, CK, PT, HS TROP, CMP, BNP #### [address] Platelets [#/volume] in Bloo d by Automated countOrdered By: Aravind Jackson on 03-09-2024 Platelets (Bld) [#/Vol] 248 10*3/uL Normal 150-450 [facility] Comment on above: Performed By: #### P TT, CBC, CK, PT, HS TROP, CMP, BNP #### [address] Potassium [Moles/volume] in Serum or PlasmaOrdered By: Aravind Jackson on 03-09-2024 Potassium [Moles/Vol] 3.6 mmol/L Normal 3.5-5.1 [facility] Comment on above: Performed By: #### P TT, CBC, CK, PT, HS TROP, CMP, BNP #### [address] Protein [Mass/volume] in Ser um or PlasmaOrdered By: Aravind Jackson on 03-09-2024 Protein [Mass/Vol] 6.5 g/dL Normal 6.4-8.9 [facility] Comment on above: Performed By: #### P TT, CBC, CK, PT, HS TROP, CMP, BNP #### [address] Prothrombin time (PT)Ordered By: Aravind Jackson on 03-09-2024 PT Coag (PPP) [Time] 10.9 s Normal 9.0-12.9 [facility] Comment on above: A hematocrit value g reater than 55% may lead to inaccurate results in coagulation testing. Patients having hematocrit values >55% require a special collection tube for coagulation studies. Please contact the laboratory at [phone] for redraw instructions. Result Comment: A he matocrit value greater than 55% may lead to inaccurate results in coagulation testing. Patients having hematocrit values >55% require a special collection tube for coagulation studies. Please contact the laboratory at [phone] for redraw instructions. Performed By: #### P TT, CBC, CK, PT, HS TROP, CMP, BNP #### [address] Serum globulin measurement b y calculation (mass/volume)Ordered By: Aravind Jackson on 03-09-2024 Globulin (S) [Mass/Vol] 2.5 g/dL Normal [facility] Comment on above: Performed By: #### P TT, CBC, CK, PT, HS TROP, CMP, BNP #### [address] [place] [address] [place] Serum or plasma albumin/glob ulin mass ratioOrdered By: Aravind Jackson on 03-09-2024 Albumin/Globulin [Mass ratio] 1.6 {ratio} Normal [facility] Comment on above: Performed By: #### P TT, CBC, CK, PT, HS TROP, CMP, BNP #### [address] Serum or plasma anion gap de terminationOrdered By: Aravind Jackson on 03-09-2024 Anion gap [Moles/Vol] 13.7 mmol/L Normal 6.0-15.0 [facility] Comment on above: Performed By: #### P TT, CBC, CK, PT, HS TROP, CMP, BNP #### [address] Sodium [Moles/volume] in Ser um or PlasmaOrdered By: Aravind Jackson on 03-09-2024 Sodium [Moles/Vol] 136 mmol/L Normal 136-145 [facility] Comment on above: Performed By: #### P TT, CBC, CK, PT, HS TROP, CMP, BNP #### [address] Troponin I High Sensitivityo n 03-09-2024 Troponin I High Sensitivity 6642.4 pg/mL Off scale high 0.0-15.0 [facility] Comment on above: Result Comment: Crit ical Result : Called to and read back by: MELANIE HIGHTOWER at: 03/09/2024 23:44:11 by:[id number] PERFORMED BY: [place] [address] PATHOLOGIST DIRECTOR [employer] CHRISTIANE EVANS M.D. Performed By: #### P TT, CBC, CK, PT, HS TROP, CMP, BNP #### [address] Troponin I High Sensitivity 1446.7 pg/mL Off scale high 0.0-15.0 [facility] Comment on above: Result Comment: Crit ical Result : Called to and read back by: ADOLFO NUGENT at: 03/09/2024 22:08:25 by:GOYO PERFORMED BY: [place] [address] PATHOLOGIST DIRECTOR [employer] CHRISTIANE EVANS M.D. Performed By: #### P TT, CBC, CK, PT, HS TROP, CMP, BNP #### [facility] [address] [place] [address] Troponin I.cardiac [Mass/vol ume] in Serum or Plasma by Detection limit <= 0.01 ng/Ordered By: Aravind Jackson on 03-09-2024 Troponin I.cardiac DL <= 0.01 ng/mL [Mass/Vol] 1446.7 pg/mL 0.0-15.0 [facility] Comment on above: Critical Result : Ca lled to and read back by: ADOLFO NUGENT at: 03/09/2024 22:08:25 by:GOYO Urea nitrogen [Mass/volume] in Serum or PlasmaOrdered By: Aravind Jackson on 03-09-2024 Urea nitrogen [Mass/Vol] 25 mg/dL Normal - [facility] Comment on above: Performed By: #### P TT, CBC, CK, PT, HS TROP, CMP, BNP #### [address] XR chest 1V portableon 03-09 XR chest 1V portable [facility] [place] [address] XRay Report Signed Patient: Milind Tate MR#: [id number] : 1935 Acct:[id number] Age/Sex: 88 / F ADM Date: 03/09/24 Loc: Room: Type: [facility] Attending Dr: Everett Lawson DO Copies to: MD Everett Stephenson Jr, DO Ordering Provider: Aravind Jackson Jr, MD Date of Service: 03/09/24 XR/XR chest 1V portable: STEMI/CHEST PAIN XR chest 1V portable 03/09/2024 8:55 PM SIGNS AND SYMPTOMS: Midsternal chest pain PROTOCOL: Frontal radiograph of the chest COMPARISON: None FINDINGS: The trachea is midline. The heart and mediastinal structures are within normal limits. The lung parenchyma is clear. The bony thorax is intact. Degenerative changes are noted in the shoulders. XR/XR chest 1V portable IMPRESSION: No acute cardiopulmonary pathology. Impression dictated by: Frederic Granger M.D.03/09/2024 9:26 PM Dictation Location: [facility]--13 Transcribed By: STUART 03/09/242125 Dictated By: Frederic Granger II, MD 03/09/242125 Signed By: 03/09/242125 Normal [facility] Urine Cultureon 08-11-2023 Bacteria identified Cx Nom (U) No Growth 2 Days PERFORMED BY: [place] [address] PATHOLOGIST DIRECTOR [employer] CHRISTIANE EVANS M.D. Normal [facility] Comment on above: Performed By: #### P TT, CBC, CK, PT, HS TROP, CMP, BNP #### [address] Bacteria identified Cx Nom (U) [email or web address] Other UPPER EXTREMITY INJECTION: L extensor compartment 1on 07-05-2023 Alissa Downing LPN 07/05/2023 1:09 PM UPPER EXTREMITY INJECTION: L extensor compartment 1 Date/Time: 07/05/2023 1:00 PM Performed by: Kahlil Wakefield PA-C Authorized by: Kahlil Wakefield PA-C Supporting Documentation Indications: pain Procedure Details: Procedure: tendon sheath / ligament injection Location: wrist - L extensor compartment 1 Needle size: 25 G Approach: radial Medications administered: 40 mg methylPREDNISolone acetate 40 MG/ML; 2 mL Bupivacaine 0.25 %; 2 mL Lidocaine 10 mg/mL Medication Verification: I have personally verified and performed the final check of the medication(s) used in this procedure prior to administration. The following items were included during the verification process for medication(s) administered: drug name, strength, volume, expiration, physical integrity and appearance of the medication(s). Patient tolerance: patient tolerated the procedure well with no immediate complications Consent: Consent was obtained prior to the procedure after discussion of the risks, benefits and alternatives, and expected outcomes were discussed with the patient. The possibilities of reaction to medication, bleeding, infection, the need for additional procedures, failure to diagnosis a condition, and creating a complication requiring operation were discussed with the patient. The patient concurred with the proposed plan, giving consent. (Informed consent is obtained. Risks and benefits have been discussed. The patient understands and wishes to proceed. ) Preparation: Patient was prepped in the usual sterile fashion. The patient was prepped with alcohol. [facility] Radiology Study observation (narrative) [facility] XR WRIST LEFT 3 VIEWSon 03-24 XR WRIST LEFT 3 VIEWS EXAM: XR WRIST LEF T 3 VIEWS HISTORY: pain COMPARISON: None. TECHNIQUE: 3 views FINDINGS: IMPRESSION: No fracture, dislocation, subluxation or osseous lesion. Moderate degenerative changes of the first carpometacarpal joint. Mild degenerative changes of the triscaphe and intercarpal articulations. 4.9 mm cyst within the central ulnar aspect of the lunate. Approximately 2 mm of positive ulnar variance on this study which is within normal limits, however questionable irregularity of the proximal ulnar aspect of the lunate. No discrete joint effusion or soft tissue edema. Normal [facility] UA RANDOMon 01-28-2023 Bilirubin Ql (U) Negative Normal NEGATIVE [facility] Comment on above: Performed By: #### U A #### [facility] [address] [place] [address] Dr. Jaja Meadows Clarity (U) CLEAR Normal CLEAR [facility] Comment on above: Performed By: #### U A #### [facility] [address] [place] [address] Dr. Jaja Meadows Color (U) LT. YELLOW Normal YELLOW [facility] Comment on above: Performed By: #### U A #### [facility] [address] [place] [address] Dr. Jaja Meadows Glucose Ql (U) Negative Normal NEGATIVE [facility] Comment on above: Performed By: #### U A #### [facility] [address] [place] [address] Dr. Jaja Meadows Hemoglobin Ql (U) TRACE-INTACT Abnormal NEGATIVE [facility] Comment on above: Performed By: #### U A #### [facility] [address] [place] [address] Dr. Jaja Meadows Ketones Ql (U) Negative Normal NEGATIVE [facility] Comment on above: Performed By: #### U A #### [facility] [address] [place] [address] Dr. Jaja Meadows LEUKOCYTES SMALL Abnormal NEGATIVE [facility] Comment on above: Performed By: #### U A #### [facility] [address] [place] [address] Dr. Jaja Meadows Nitrite Ql (U) Positive Abnormal NEGATIVE [facility] Comment on above: Performed By: #### U A #### [facility] [address] [place] [address] Dr. Jaja Meadows pH (U) 6.0 [pH] Normal 5-9 [facility] Comment on above: Performed By: #### U A #### [facility] [address] [place] [address] Dr. Jaja Meadows SPEC GRAVITY <=1.005 Abnormal 1.005-<=1. 025 [facility] Comment on above: Performed By: #### U A #### [facility] [address] [place] [address] Dr. Jaja Meadows UA PROTEIN Negative Normal NEGATIVE/ TRACE [facility] Comment on above: Performed By: #### U A #### [facility] [address] [place] [address] Dr. Jaja Meadows Urobilinogen Qn (U) 0.2 {Son'U}/dL Normal 0.2 - 1. 0 [facility] Comment on above: Performed By: #### U A #### [facility] [address] [place] [address] Dr. Jaja Meadows Office Visit (Cardiology)on 12-28-2022 Follow-up visit Diagnoses/Problems Assessed Takotsubo syndrome (429.83) (I51.81) Body mass index (BMI) of 24.0 to 24.9 in adult (V85.1) (Z68.24) Never a smoker Orders SocHx: Never a smoker Tobacco Use Screening; Status:Complete; Done: [id number] Takotsubo syndrome Start: Aspirin 81 MG Oral Tablet Delayed Release; 1 tablet three times weekly Start: Metoprolol Succinate ER 25 MG Oral Tablet Extended Release 24 Hour; TAKE 1 TABLET DAILY Patient Instructions Please bring all medicines, vitamins, and herbal supplements with you when you come to the office. Prescriptions will not be filled unless you are compliant with your follow up appointments or have a follow up appointment scheduled as per instruction of your physician. Refills should be requested at the time of your visit. Follow up in 1 year. Chief Complaint MILIND TATE is being seen for a 6 month follow-up of. 87-year-old female returns for follow-up. She sustained a Takotsubo syndrome April 2022 following the passing of her . She now has normalized left ventricular function by follow-up echo. She has had no recurrent cardiovascular events and remains on appropriate guideline directed medical therapies She denies chest pain, shortness of breath or edema or hospitalizations Recommendations, switch metoprolol to tartrate for metoprolol succinate 25 daily, decrease aspirin to 81 mg 3 times a week and follow-up in 1 year. We did explain the potential for recurrence of Takotsubo and anywhere between 10 to 15% and to maintain compliance with current medical therapy Current Meds Medication NameInstruction ALPRAZolam 0.25 MG Oral TabletTAKE 1 TABLET AT BEDTIME NEEDED. Aspirin EC 81 MG Oral Tablet Delayed ReleaseTAKE 1 TABLET DAILY. Citalopram Hydrobromide 10 MG Oral TabletTAKE 1 TABLET DAILY. Gabapentin 300 MG Oral CapsuleTAKE 1 CAPSULE 3 TIMES DAILY. Losartan Potassium 25 MG Oral TabletTAKE 1 TABLET DAILY. Metoprolol Tartrate 25 MG Oral TabletTAKE 1 TABLET TWICE DAILY. Nitroglycerin 0.4 MG Sublingual Tablet SublingualPLACE 1 TABLET UNDER THE TONGUE EVERY 5 MINUTES UP TO 3 DOSES NEEDED FOR CHEST PAIN. predniSONE 5 MG Oral TabletTAKE 1 TABLET DAILY. Spironolactone 25 MG Oral TabletTAKE 0.5 TABLET Daily SUMAtriptan Succinate 100 MG Oral TabletTAKE 1 TABLET Daily prn traMADol HCl - 50 MG Oral TabletTake 1 tablet twice daily as needed Allergies Medication Sulfa Drugs Adverse Reaction; Nausea; Recorded By: Addis Martinez; 05/19/2022 12:06:57 PM Social History Problems Caffeine use (V49.89) (Z78.9) iced coffee occasionally, a little soda daily Never a smoker No alcohol use No illicit drug use Review of Systems Constitutional: not feeling tired. Cardiovascular: no intermittent leg claudication and as noted in HPI. Respiratory: no cough and no shortness of breath. Gastrointestinal: no change in bowel habits and no blood in stools. Integumentary: no skin rashes. Neurological: no seizures and no frequent falls. All other systems have been reviewed and are negative for complaint. Vitals Vital Signs Recorded: 28Dec2022 03:12PM Heart Rate58, R Radial Apmdbfee259, LUE, Sitting Torkyioos02, LUE, Sitting Height5 ft 1 in Yopsjg477 lb BMI Hfcismhheo98.56 kg/m2 BSA Calculated1.57 Tobacco Useb) No PHQ-2 Patient Declined/Screening not indicatedYes Falls Screening (Age 18+)a) No falls within the last year Physical Exam Constitutional: alert and in no acute distress. Neck: neck is supple, symmetric, trachea midline, no masses and no thyromegaly . Pulmonary: no increased work of breathing or signs of respiratory distress and lungs clear to auscultation. Cardiovascular: carotid pulses 2+ bilaterally with no bruit , JVP was normal, no thrills , regular rhythm, normal S1 and S2, no murmurs , pedal pulses 2+ bilaterally and no edema . Abdomen: abdomen non-tender, no masses and no hepatomegaly . Skin: skin warm and dry, normal skin turgor . Psychiatric judgment and insight is normal and oriented to person, place and time . Signatures Electronically signed by : Ismael Lawson DO; Dec 28 2022 6:36PM EST (Author) Normal [employer] PHQ-2 VITALSon 12-28-2022 Fall risk assessment a) No falls within the last year [facility] DO Work Phone: Tobacco use status CP b) No [facility] 250 DO Work Phone: PHQ-2 VITALS Yes [facility] DO Work Phone: CULTURE URINEon 10-29-2022 CULTURE URINE Isolate 1 Escherichia coli >100,000 cfu/mL of ORGANISM 1 Escherichia coli ANTIBIOTIC M.I.C RX STATUS Ampicillin <=2 S F Ampicillin/Sulbactam <=2 S F Piperacillin/Tazobactam <=4 S F Cefazolin <=4 S F Ceftazidime <=1 S F Ceftriaxone <=1 S F Ertapenem <=0.5 S F Imipenem <=0.25 S F Amikacin <=2 S F Gentamicin <=1 S F Tobramycin <=1 S F Ciprofloxacin <=0.25 S F Levofloxacin <=0.12 S F Nitrofurantoin <=16 S F Trimethoprim/Sulfamethoxa zole <=20 S F Normal [facility] Comment on above: Performed By: #### P TT, PT #### [facility] [address] [place] [address] Dr. Jaja Meadows CBC AUTO DIFFon 10-28-2022 BASO # 0.0 103/ul Normal 0.0-0.1 [facility] Comment on above: Performed By: #### P TT, PT #### [facility] [address] [place] [address] Dr. Jaja Meadows Basophils/100 WBC (Bld) 0.6 % Normal 0.2-2.0 [facility] Comment on above: Performed By: #### P TT, PT #### [facility] [address] [place] [address] Dr. Jaja Meadows EO # 0.2 103/ul Normal 0.0-0.7 [facility] Comment on above: Performed By: #### P TT, PT #### [facility] [address] [place] [address] Dr. Jaja Meadows Eosinophils/100 WBC (Bld) 2.9 % Normal 0.9-7.0 [facility] Comment on above: Performed By: #### P TT, PT #### [facility] [address] [place] [address] Dr. Jaja Meadows Erythrocyte distribution width (RBC) [Ratio] 12.4 % Normal 11.0-15.0 [facility] Comment on above: Performed By: #### P TT, PT #### [facility] [address] [place] [address] Dr. Jaja Meadows Hematocrit (Bld) [Volume fraction] 39.6 % Normal 36.0-48.0 [facility] Comment on above: Performed By: #### P TT, PT #### [facility] [address] [place] [address] Dr. Jaja Meadows Hemoglobin (Bld) [Mass/Vol] 12.7 g/dL Normal 12.0-16.0 [facility] Comment on above: Performed By: #### P TT, PT #### [facility] [facility] [address] [place] [address] Dr. Jaja Meadows IG # 0.03 10e3/ul Normal 0.00-0.03 [facility] Comment on above: Performed By: #### P TT, PT #### [facility] [address] [place] [address] Dr. Jaja Meadows IG % 0.5 % Normal 0.0-0.5 [facility] Comment on above: Performed By: #### P TT, PT #### [facility] [address] [place] [address] Dr. Jaja Meadows LYMPH # 1.9 103/ul Normal 1.2-3.8 [facility] Comment on above: Performed By: #### P TT, PT #### [facility] [address] [place] [address] Dr. Jaja Meadows Lymphocytes/100 WBC (Bld) 30.3 % Normal 20.5-60.0 [facility] Comment on above: Performed By: #### P TT, PT #### [facility] [address] [place] [address] Dr. Jaja Meadows MANUAL DIFF REQ NO Normal [facility] Comment on above: Performed By: #### P TT, PT #### [facility] [address] [place] [address] Dr. Jaja Meadows MCH (RBC) [Entitic mass] 31.5 pg Normal 26.7-34.0 [facility] Comment on above: Performed By: #### P TT, PT #### [facility] [address] [place] [address] Dr. Jaja Meadows MCHC (RBC) [Mass/Vol] 32.1 g/dL Normal 29.9-35.2 [facility] Comment on above: Performed By: #### P TT, PT #### [facility] [address] [place] [address] Dr. Jaja Meadows MCV (RBC) [Entitic vol] 98.3 fL Normal 81.0-99.0 [facility] Comment on above: Performed By: #### P TT, PT #### [facility] [address] [place] [address] Dr. Jaja Meadows MONO # 0.6 103/ul Normal 0.3-0.8 [facility] Comment on above: Performed By: #### P TT, PT #### [facility] [address] [place] [address] Dr. Jaja Meadows Monocytes/100 WBC (Bld) 9.7 % Normal 1.7-12.0 [facility] Comment on above: Performed By: #### P TT, PT #### [facility] [address] [place] [address] Dr. Jaja Meadows NEUT # 3.5 103/ul Normal 1.4-6.5 [facility] Comment on above: Performed By: #### P TT, PT #### [facility] [address] [place] [address] Dr. Jaja Meadows Neutrophils/100 WBC (Bld) 56.0 % Normal 43.0-75.0 [facility] Comment on above: Performed By: #### P TT, PT #### [facility] [address] [place] [address] Dr. Jaja Meadows Platelet mean volume (Bld) [Entitic vol] 9.6 fL Normal 9.5-13.5 [facility] Comment on above: Performed By: #### P TT, PT #### [facility] [address] [place] [address] Dr. Jaja Meadows PLT 155 103/ul Normal 150-450 [facility] Comment on above: Performed By: #### P TT, PT #### [facility] [address] [place] [address] Dr. Jaja Meadows RBC 4.03 106/ul Critically low 4.20-5.40 [facility] Comment on above: Performed By: #### P TT, PT #### [facility] [address] [address] [address] Jaja Meadows WBC 6.3 103/ul Normal 4.0-11.0 [facility] Comment on above: Performed By: #### P TT, PT #### [facility] [address] [address] [address] Jaja Meadows Covid-19 PCR (CVDTBH)on SARS-CoV-2 (COVID-19) RNA GASTON+probe Ql (Unsp spec) Not detected Normal NOT DETECTED [facility] Comment on above: Result Comment: When diagnostic testing is negative, the possibility of a false negative should be considered in the context of a patient's recent exposures and the presence of clinical signs and symptoms consistent with SARS-CoV-2. This test is not yet approved or cleared by the [place] FDA. When there are no FDA-approved or cleared tests available, and other criteria are met, FDA can make tests available under an emergency access mechanism called an Emergency Use Authorization (EUA). The EUA for this test is supported by the [employer] of Health and Human Service's declaration that circumstances exist to justify the emergency use of in vitro diagnostics for the detection and/or diagnosis of the virus that causes COVID-19. This EUA will remain in effect for the duration of the COVID-19 declaration justifying emergency of IVDs, unless it is terminated or revoked by the FDA (after which the test may no longer be used). Performed By: #### P TT, PT #### [facility] [address] [place] [address] Dr. Jaja Meadows PROF CHEM 8 (BAS METB)on Anion gap [Moles/Vol] 11.1 mmol/L Normal [facility] Comment on above: Performed By: #### C VDTBH #### [facility] [address] [place] [address] Dr. Jaja Meadows Calcium [Mass/Vol] 8.1 mg/dL Critically low 8.5-10.1 Th e [facility] Comment on above: Performed By: #### C VDTBH #### [facility] [address] [place] [address] Dr. Jaja Meadows Chloride [Moles/Vol] 109 mmol/L Critically high 98-107 [facility] Comment on above: Performed By: #### C VDTBH #### [facility] [address] [place] [address] Dr. Jaja Meadows CO2 [Moles/Vol] 25.8 mmol/L Normal 21.0-32.0 [facility] Comment on above: Performed By: #### C VDTBH #### [facility] [address] [place] [address] Dr. Jaja Meadows Creatinine [Mass/Vol] 0.89 mg/dL Normal 0.55-1.02 [facility] Comment on above: Performed By: #### C VDTBH #### [facility] [address] [place] [address] Dr. Jaja Meadows EGFR-AF NEPALESE >60 Normal >=60 [facility] Comment on above: Performed By: #### C VDTBH #### [facility] [address] [place] [address] Dr. Jaja Meadows EGFR-NON AF NEPALESE 60 mL/min/1.73m2 Normal >=60 [facility] Comment on above: Performed By: #### C VDTBH #### [facility] [address] [place] [address] Dr. Jaja Meadows Glucose [Mass/Vol] 92 mg/dL Normal 74-106 [facility] Comment on above: Performed By: #### C VDTBH #### [facility] [address] [place] [address] Dr. Jaja Meadows Potassium [Moles/Vol] 3.9 mmol/L Normal 3.5-5.1 [facility] Comment on above: Performed By: #### C VDTBH #### [facility] [address] [place] [address] Dr. Jaja Meadows Sodium [Moles/Vol] 142 mmol/L Normal 136-145 [facility] Comment on above: Performed By: #### C VDTBH #### [facility] [address] [place] [address] Dr. Jaja Meadows Urea nitrogen [Mass/Vol] 17.0 mg/dL Normal 7.0-18.0 [facility] Comment on above: Performed By: #### C VDTBH #### [facility] [address] [place] [address] Dr. Jaja Meadows Urea nitrogen/Creatinine [Mass ratio] 19.1 mg/mg Normal [facility] Comment on above: Performed By: #### C VDTBH #### [facility] [address] [place] [address] Dr. Jaja Meadows CBC AUTO DIFFon 10-27-2022 BASO # 0.0 103/ul Normal 0.0-0.1 [facility] Comment on above: Performed By: #### C BC #### [facility] [address] [place] [address] Dr. Jaja Meadows Basophils/100 WBC (Bld) 0.5 % Normal 0.2-2.0 [facility] Comment on above: Performed By: #### C BC #### [facility] [address] [place] [address] Dr. Jaja Meadows EO # 0.1 103/ul Normal 0.0-0.7 [facility] Comment on above: Performed By: #### C BC #### [facility] [address] [place] [address] Dr. Jaja Meadows Eosinophils/100 WBC (Bld) 2.5 % Normal 0.9-7.0 [facility] Comment on above: Performed By: #### C BC #### [facility] [address] [place] [address] Dr. Jaja Meadows Erythrocyte distribution width (RBC) [Ratio] 12.7 % Normal 11.0-15.0 [facility] Comment on above: Performed By: #### C BC #### [facility] [address] [place] [address] Dr. Jaja Meadows Hematocrit (Bld) [Volume fraction] 38.7 % Normal 36.0-48.0 [facility] Comment on above: Performed By: #### C BC #### [facility] [address] [place] [address] Dr. Jaja Meadows Hemoglobin (Bld) [Mass/Vol] 12.6 g/dL Normal 12.0-16.0 [facility] Comment on above: Performed By: #### C BC #### [facility] [address] [place] [address] Dr. Jaja Meadows IG # 0.01 10e3/ul Normal 0.00-0.03 [facility] Comment on above: Performed By: #### C BC #### [facility] [address] [place] [address] Dr. Jaja Meadows IG % 0.2 % Normal 0.0-0.5 [facility] Comment on above: Performed By: #### C BC #### [facility] [address] [place] [address] Dr. Jaja Meadows LYMPH # 2.2 103/ul Normal 1.2-3.8 [facility] Comment on above: Performed By: #### C BC #### [facility] [address] [place] [address] Dr. Jaja Meadows Lymphocytes/100 WBC (Bld) 39.0 % Normal 20.5-60.0 [facility] Comment on above: Performed By: #### C BC #### [facility] [address] [place] [address] Dr. Jaja Meadows MANUAL DIFF REQ NO Normal [facility] Comment on above: Performed By: #### C BC #### [facility] [address] [place] [address] Dr. Jaja Meadows MCH (RBC) [Entitic mass] 32.1 pg Normal 26.7-34.0 [facility] Comment on above: Performed By: #### C BC #### [facility] [address] [place] [address] Dr. Jaja Meadows MCHC (RBC) [Mass/Vol] 32.6 g/dL Normal 29.9-35.2 [facility] Comment on above: Performed By: #### C BC #### [facility] [address] [address] [address] Jaja Meadows MCV (RBC) [Entitic vol] 98.5 fL Normal 81.0-99.0 [facility] Comment on above: Performed By: #### C BC #### [facility] [address] [address] [address] Jaja Meadows MONO # 0.6 103/ul Normal 0.3-0.8 [facility] Comment on above: Performed By: #### C BC #### [facility] [address] [address] [address] Jaja Meadows Monocytes/100 WBC (Bld) 10.7 % Normal 1.7-12.0 [facility] Comment on above: Performed By: #### C BC #### [facility] [address] [address] [address] Jaja Meadows NEUT # 2.6 103/ul Normal 1.4-6.5 [facility] Comment on above: Performed By: #### C BC #### [facility] [address] [address] [address] Jaja Meadows Neutrophils/100 WBC (Bld) 47.1 % Normal 43.0-75.0 [facility] Comment on above: Performed By: #### C BC #### [facility] [address] [address] [address] Jaja Meadows Platelet mean volume (Bld) [Entitic vol] 9.8 fL Normal 9.5-13.5 [facility] Comment on above: Performed By: #### C BC #### [facility] [address] [address] [address] Jaja Meadows PLT 163 103/ul Normal 150-450 [facility] Comment on above: Performed By: #### C BC #### [facility] [address] [address] [address] Jaja Meadows RBC 3.93 106/ul Critically low 4.20-5.40 [facility] Comment on above: Performed By: #### C BC #### [facility] [address] [address] [address] Jaja Meadows WBC 5.5 103/ul Normal 4.0-11.0 [facility] Comment on above: Performed By: #### C BC #### [facility] [address] [address] [address] Jaja Meadows PROF CHEM 8 (BAS METB)on Anion gap [Moles/Vol] 8.8 mmol/L Normal [facility] Comment on above: Performed By: #### C VDTBH #### [facility] [address] [place] [address] Dr. Jaja Meadows Calcium [Mass/Vol] 8.1 mg/dL Critically low 8.5-10.1 [facility] Comment on above: Performed By: #### C VDTBH #### [facility] [address] [place] [address] Dr. Jaja Meadows Chloride [Moles/Vol] 110 mmol/L Critically high 98-107 [facility] Comment on above: Performed By: #### C VDTBH #### [facility] [address] [place] [address] Dr. Jaja Meadows CO2 [Moles/Vol] 27.9 mmol/L Normal 21.0-32.0 [facility] Comment on above: Performed By: #### C VDTBH #### [facility] [address] [place] [address] Dr. Jaja Meadows Creatinine [Mass/Vol] 0.93 mg/dL Normal 0.55-1.02 [facility] Comment on above: Performed By: #### C VDTBH #### [facility] [address] [place] [address] Dr. Jaja Meadows EGFR-AF NEPALESE >60 Normal >=60 [facility] Comment on above: Performed By: #### C VDTBH #### [facility] [address] [place] [address] Dr. Jaja Meadows EGFR-NON AF NEPALESE 57 mL/min/1.73m2 Critically low >=60 [facility] Comment on above: Performed By: #### C VDTBH #### [facility] [address] [address] [address] Jaja Meadows Glucose [Mass/Vol] 95 mg/dL Normal 74-106 [facility] Comment on above: Performed By: #### C VDTBH #### [facility] [address] [place] [address] Dr. Jaja Meadows Potassium [Moles/Vol] 3.7 mmol/L Normal 3.5-5.1 [facility] Comment on above: Performed By: #### C VDTBH #### [facility] [address] [place] [address] Dr. Jaja Meadows Sodium [Moles/Vol] 143 mmol/L Normal 136-145 [facility] Comment on above: Performed By: #### C VDTBH #### [facility] [address] [place] [address] Dr. Jaja Meadows Urea nitrogen [Mass/Vol] 18.0 mg/dL Normal 7.0-18.0 [facility] Comment on above: Performed By: #### C VDTBH #### [facility] [address] [place] [address] Dr. Jaja Meadows Urea nitrogen/Creatinine [Mass ratio] 19.4 mg/mg Normal [facility] Comment on above: Performed By: #### C VDTBH #### [facility] [address] [place] [address] Dr. Jaja Meadows UA (CLEAN/CATCH) NURSE MANAGER/MICRO I F IND.on 10-27-2022 Bilirubin Ql (U) Negative Normal NEGATIVE [facility] Comment on above: Performed By: #### C VDTBH #### [facility] [address] [place] [address] Dr. Jaja Meadows Clarity (U) CLEAR Normal CLEAR [facility] Comment on above: Performed By: #### C VDTBH #### [facility] [address] [place] [address] Dr. Jaja Meadows Color (U) LT. YELLOW Normal YELLOW [facility] Comment on above: Performed By: #### C VDTBH #### [facility] [address] [place] [address] Dr. Jaja Meadows Glucose Ql (U) Negative Normal NEGATIVE [facility] Comment on above: Performed By: #### C VDTBH #### [facility] [address] [place] [address] Dr. Jaja Meadows Hemoglobin Ql (U) SMALL Abnormal NEGATIVE [facility] Comment on above: Performed By: #### C VDTBH #### [facility] [address] [place] [address] Dr. Jaja Meadows Ketones Ql (U) Negative Normal NEGATIVE [facility] Comment on above: Performed By: #### C VDTBH #### [facility] [address] [place] [address] Dr. Jaja Meadows LEUKOCYTES LARGE Abnormal NEGATIVE [facility] Comment on above: Performed By: #### C VDTBH #### [facility] [address] [place] [address] Dr. Jaja Meadows Nitrite Ql (U) Positive Abnormal NEGATIVE [facility] Comment on above: Performed By: #### C VDTBH #### [facility] [address] [place] [address] Dr. Jaja Meadows pH (U) 6.5 [pH] Normal 5-9 [facility] Comment on above: Performed By: #### C VDTBH #### [facility] [address] [place] [address] Dr. Jaja Meadows SPEC GRAVITY 1.015 Normal 1.005-<=1. 025 [facility] Comment on above: Performed By: #### C VDTBH #### [facility] [address] [place] [address] Dr. Jaja Meadows UA PROTEIN Negative Normal NEGATIVE/ TRACE [facility] Comment on above: Performed By: #### C VDTBH #### [facility] [address] [place] [address] Dr. Jaja Meadows UR MICRO IND INDICATED Normal [facility] Comment on above: Performed By: #### C VDTBH #### [facility] [address] [place] [address] Dr. Jaja Meadows Urobilinogen Qn (U) 0.2 {Son'U}/dL Normal 0.2 - 1. 0 [facility] Comment on above: Performed By: #### C VDTB #### [facility] [address] [place] [address] Dr. Jaja Meadows URINE MICROSCOPIC ONLYon BACTERIA MODERATE Abnormal NONE SEEN [facility] Comment on above: Performed By: #### B MP #### [facility] [address] [place] [address] Dr. Jaja Meadows Bacteria identified Cx Nom (U) INDICATED Normal [facility] Comment on above: Performed By: #### B MP #### [facility] [address] [place] [address] Dr. Jaja Meadows CAST NONE SEEN Normal NONE SEEN [facility] Comment on above: Performed By: #### B MP #### [facility] [address] [place] [address] Dr. Jaja Meadows Crystals LM Nom (Urine sed) NONE SEEN Normal NONE SEEN [facility] Comment on above: Performed By: #### B MP #### [facility] [address] [place] [address] Dr. Jaja Meadows Epithelial cells LM Ql (Urine sed) FEW Abnormal NONE SEEN /RARE [facility] Comment on above: Performed By: #### B MP #### [facility] [address] [place] [address] Dr. Jaja Meadows MUCOUS TRACE Abnormal NONE SEEN [facility] Comment on above: Performed By: #### B MP #### [facility] [address] [place] [address] Dr. Jaja Meadows RBC 5-10 Abnormal 0-2 [facility] Comment on above: Performed By: #### B MP #### [facility] [address] [place] [address] Dr. Jaja Meadows WBC 50-75 Abnormal NONE SEEN [facility] Comment on above: Performed By: #### B MP #### [facility] [address] [place] [address] Dr. Jaja Meadows CBC AUTO DIFFon 10-26-2022 BASO # 0.0 103/ul Normal 0.0-0.1 [facility] Comment on above: Performed By: #### C BC #### [facility] [address] [place] [address] Dr. Jaja Meadows Basophils/100 WBC (Bld) 0.6 % Normal 0.2-2.0 [facility] Comment on above: Performed By: #### C BC #### [facility] [address] [place] [address] Dr. Jaja Meadows EO # 0.1 103/ul Normal 0.0-0.7 [facility] Comment on above: Performed By: #### C BC #### [facility] [address] [place] [address] Dr. Jaja Meadows Eosinophils/100 WBC (Bld) 0.8 % Critically low 0.9-7.0 [facility] Comment on above: Performed By: #### C BC #### [facility] [address] [place] [address] Dr. Jaja Meadows Erythrocyte distribution width (RBC) [Ratio] 12.5 % Normal 11.0-15.0 [facility] Comment on above: Performed By: #### C BC #### [facility] [address] [place] [address] Dr. Jaja Meadows Hematocrit (Bld) [Volume fraction] 41.7 % Normal 36.0-48.0 [facility] Comment on above: Performed By: #### C BC #### [facility] [address] [place] [address] Dr. Jaja Meadows Hemoglobin (Bld) [Mass/Vol] 13.7 g/dL Normal 12.0-16.0 [facility] Comment on above: Performed By: #### C BC #### [facility] [address] [place] [address] Dr. Jaja Meadows IG # 0.03 10e3/ul Normal 0.00-0.03 [facility] Comment on above: Performed By: #### C BC #### [facility] [address] [place] [address] Dr. Jaja Meadows IG % 0.4 % Normal 0.0-0.5 [facility] Comment on above: Performed By: #### C BC #### [facility] [address] [place] [address] Dr. Jaja Meadows LYMPH # 1.6 103/ul Normal 1.2-3.8 [facility] Comment on above: Performed By: #### C BC #### [facility] [address] [place] [address] Dr. Jaja Meadows Lymphocytes/100 WBC (Bld) 22.2 % Normal 20.5-60.0 [facility] Comment on above: Performed By: #### C BC #### [facility] [address] [place] [address] Dr. Jaja Meadows MANUAL DIFF REQ NO Normal [facility] Comment on above: Performed By: #### C BC #### [facility] [address] [place] [address] Dr. Jaja Meadows MCH (RBC) [Entitic mass] 31.6 pg Normal 26.7-34.0 [facility] Comment on above: Performed By: #### C BC #### [facility] [address] [place] [address] Dr. Jaja Meadows MCHC (RBC) [Mass/Vol] 32.9 g/dL Normal 29.9-35.2 [facility] Comment on above: Performed By: #### C BC #### [facility] [address] [place] [address] Dr. Jaja Meadows MCV (RBC) [Entitic vol] 96.3 fL Normal 81.0-99.0 [facility] Comment on above: Performed By: #### C BC #### [facility] [address] [place] [address] Dr. Jaja Meadows MONO # 0.7 103/ul Normal 0.3-0.8 [facility] Comment on above: Performed By: #### C BC #### [facility] [address] [place] [address] Dr. Jaja Meadows Monocytes/100 WBC (Bld) 9.9 % Normal 1.7-12.0 [facility] Comment on above: Performed By: #### C BC #### [facility] [address] [place] [address] Dr. Jaja Meadows NEUT # 4.7 103/ul Normal 1.4-6.5 [facility] Comment on above: Performed By: #### C BC #### [facility] [address] [place] [address] Dr. Jaja Meadows Neutrophils/100 WBC (Bld) 66.1 % Normal 43.0-75.0 [facility] Comment on above: Performed By: #### C BC #### [facility] [address] [place] [address] Dr. Jaja Meadows Platelet mean volume (Bld) [Entitic vol] 9.5 fL Normal 9.5-13.5 [facility] Comment on above: Performed By: #### C BC #### [facility] [address] [place] [address] Dr. Jaja Meadows PLT 173 103/ul Normal 150-450 [facility] Comment on above: Performed By: #### C BC #### [facility] [address] [place] [address] Dr. Jaja Meadows RBC 4.33 106/ul Normal 4.20-5.40 [facility] Comment on above: Performed By: #### C BC #### [facility] [address] [place] [address] Dr. Jaja Meadows WBC 7.1 103/ul Normal 4.0-11.0 [facility] Comment on above: Performed By: #### C BC #### [facility] [address] [place] [address] Dr. Jaja Meadows PROF CHEM 8 (BAS METB)on Anion gap [Moles/Vol] 9.5 mmol/L Normal [facility] Comment on above: Performed By: #### B MP #### [facility] [address] [place] [address] Dr. Jaja Meadows Calcium [Mass/Vol] 8.5 mg/dL Normal 8.5-10.1 [facility] Comment on above: Performed By: #### B MP #### [facility] [address] [address] [address] Jaja Meadows Chloride [Moles/Vol] 106 mmol/L Normal 98-107 [facility] Comment on above: Performed By: #### B MP #### [facility] [address] [address] [address] Jaja Meadows CO2 [Moles/Vol] 28.2 mmol/L Normal 21.0-32.0 [facility] Comment on above: Performed By: #### B MP #### [facility] [address] [place] [address] Dr. Jaja Meadows Creatinine [Mass/Vol] 0.99 mg/dL Normal 0.55-1.02 [facility] Comment on above: Performed By: #### B MP #### [facility] [address] [address] [address] Jaja Meadows EGFR-AF NEPALESE >60 Normal >=60 [facility] Comment on above: Performed By: #### B MP #### [facility] [address] [address] [address] Jaja Meadows EGFR-NON AF NEPALESE 53 mL/min/1.73m2 Critically low >=60 [facility] Comment on above: Performed By: #### B MP #### [facility] [address] [address] [address] Jaja Meadows Glucose [Mass/Vol] 107 mg/dL Critically high 74-106 [facility] Comment on above: Performed By: #### B MP #### [facility] [address] [address] [address] Jaja Meadows Potassium [Moles/Vol] 3.7 mmol/L Normal 3.5-5.1 [facility] Comment on above: Performed By: #### B MP #### [facility] [address] [address] [address] Jaja Meadows Sodium [Moles/Vol] 140 mmol/L Normal 136-145 [facility] Comment on above: Performed By: #### B MP #### [facility] [address] [place] [address] Dr. Jaja Meadows Urea nitrogen [Mass/Vol] 18.0 mg/dL Normal 7.0-18.0 [facility] Comment on above: Performed By: #### B MP #### [facility] [address] [place] [address] Dr. Jaja Meadows Urea nitrogen/Creatinine [Mass ratio] 18.2 mg/mg Normal [facility] Comment on above: Performed By: #### B MP #### [facility] [address] [place] [address] Dr. Jaja Meadows CBC AUTO DIFFon 10-25-2022 BASO # 0.0 103/ul Normal 0.0-0.1 [facility] Comment on above: Performed By: #### P TT, PT #### [facility] [address] [place] [address] Dr. Jaja Meadows Basophils/100 WBC (Bld) 0.3 % Normal 0.2-2.0 [facility] Comment on above: Performed By: #### P TT, PT #### [facility] [address] [place] [address] Dr. Jaja Meadows EO # 0.0 103/ul Normal 0.0-0.7 [facility] Comment on above: Performed By: #### P TT, PT #### [facility] [address] [place] [address] Dr. Jaja Meadows Eosinophils/100 WBC (Bld) 0.1 % Critically low 0.9-7.0 [facility] Comment on above: Performed By: #### P TT, PT #### [facility] [address] [place] [address] Dr. Jaja Meadows Erythrocyte distribution width (RBC) [Ratio] 12.3 % Normal 11.0-15.0 [facility] Comment on above: Performed By: #### P TT, PT #### [facility] [address] [place] [address] Dr. Jaja Meadows Hematocrit (Bld) [Volume fraction] 40.5 % Normal 36.0-48.0 [facility] Comment on above: Performed By: #### P TT, PT #### [facility] [address] [place] [address] Dr. Jaja Meadows Hemoglobin (Bld) [Mass/Vol] 13.7 g/dL Normal 12.0-16.0 [facility] Comment on above: Performed By: #### P TT, PT #### [facility] [address] [place] [address] Dr. Jaja Meadows IG # 0.03 10e3/ul Normal 0.00-0.03 [facility] Comment on above: Performed By: #### P TT, PT #### [facility] [address] [place] [address] Dr. Jaja Meadows IG % 0.3 % Normal 0.0-0.5 [facility] Comment on above: Performed By: #### P TT, PT #### [facility] [address] [place] [address] Dr. Jaja Meadows LYMPH # 0.8 103/ul Critically low 1.2-3.8 [facility] Comment on above: Performed By: #### P TT, PT #### [facility] [address] [place] [address] Dr. Jaja Meadows Lymphocytes/100 WBC (Bld) 8.5 % Critically low 20.5-60.0 [facility] Comment on above: Performed By: #### P TT, PT #### [facility] [address] [place] [address] Dr. Jaja Meadows MANUAL DIFF REQ NO Normal [facility] Comment on above: Performed By: #### P TT, PT #### [facility] [address] [place] [address] Dr. Jaja Meadows MCH (RBC) [Entitic mass] 32.2 pg Normal 26.7-34.0 [facility] Comment on above: Performed By: #### P TT, PT #### [facility] [address] [place] [address] Dr. Jaja Meadows MCHC (RBC) [Mass/Vol] 33.8 g/dL Normal 29.9-35.2 [facility] Comment on above: Performed By: #### P TT, PT #### [facility] [address] [address] [address] Jaja Meadows MCV (RBC) [Entitic vol] 95.1 fL Normal 81.0-99.0 [facility] Comment on above: Performed By: #### P TT, PT #### [facility] [address] [address] [address] Jaja Meadows MONO # 0.7 103/ul Normal 0.3-0.8 [facility] Comment on above: Performed By: #### P TT, PT #### [facility] [address] [place] [address] Dr. Jaja Meadows Monocytes/100 WBC (Bld) 7.4 % Normal 1.7-12.0 [facility] Comment on above: Performed By: #### P TT, PT #### [facility] [address] [place] [address] Dr. Jaja Meadows NEUT # 7.5 103/ul Critically high 1.4-6.5 [facility] Comment on above: Performed By: #### P TT, PT #### [facility] [address] [place] [address] Dr. Jaja Meadows Neutrophils/100 WBC (Bld) 83.4 % Critically high 43.0-75.0 [facility] Comment on above: Performed By: #### P TT, PT #### [facility] [address] [place] [address] Dr. Jaja Meadows Platelet mean volume (Bld) [Entitic vol] 9.6 fL Normal 9.5-13.5 [facility] Comment on above: Performed By: #### P TT, PT #### [facility] [address] [place] [address] Dr. Jaja Meadows PLT 159 103/ul Normal 150-450 [facility] Comment on above: Performed By: #### P TT, PT #### [facility] [address] [place] [address] Dr. Jaja Meadows RBC 4.26 106/ul Normal 4.20-5.40 [facility] Comment on above: Performed By: #### P TT, PT #### [facility] [address] [place] [address] Dr. Jaja Meadows WBC 9.1 103/ul Normal 4.0-11.0 [facility] Comment on above: Performed By: #### P TT, PT #### [facility] [address] [place] [address] Dr. Jaja Meadows Covid-19 PCR (CVDTBH)on SARS-CoV-2 (COVID-19) RNA GASTON+probe Ql (Unsp spec) Not detected Normal NOT DETECTED [facility] Comment on above: Result Comment: When diagnostic testing is negative, the possibility of a false negative should be considered in the context of a patient's recent exposures and the presence of clinical signs and symptoms consistent with SARS-CoV-2. This test is not yet approved or cleared by the [place] FDA. When there are no FDA-approved or cleared tests available, and other criteria are met, FDA can make tests available under an emergency access mechanism called an Emergency Use Authorization (EUA). The EUA for this test is supported by the [employer] of Health and Human Service's declaration that circumstances exist to justify the emergency use of in vitro diagnostics for the detection and/or diagnosis of the virus that causes COVID-19. This EUA will remain in effect for the duration of the COVID-19 declaration justifying emergency of IVDs, unless it is terminated or revoked by the FDA (after which the test may no longer be used). Performed By: #### C VDTBH #### [facility] [address] [place] [address] Dr. Jaja Meadows PROF CHEM 8 (BAS METB)on Anion gap [Moles/Vol] 15.6 mmol/L Normal [facility] Comment on above: Performed By: #### P TT, PT #### [facility] [address] [place] [address] Dr. Jaja Meadows Calcium [Mass/Vol] 8.6 mg/dL Normal 8.5-10.1 [facility] Comment on above: Performed By: #### P TT, PT #### [facility] [address] [address] [address] Jaja Meadows Chloride [Moles/Vol] 104 mmol/L Normal 98-107 [facility] Comment on above: Performed By: #### P TT, PT #### [facility] [address] [place] [address] Dr. Jaja Meadows CO2 [Moles/Vol] 23.6 mmol/L Normal 21.0-32.0 [facility] Comment on above: Performed By: #### P TT, PT #### [facility] [address] [place] [address] Dr. Jaja Meadows Creatinine [Mass/Vol] 1.08 mg/dL Critically high 0.55-1.02 [facility] Comment on above: Performed By: #### P TT, PT #### [facility] [address] [place] [address] Dr. Jaja Meadows EGFR-AF NEPALESE 58 mL/min/1.73m2 Critically low >=60 [facility] Comment on above: Performed By: #### P TT, PT #### [facility] [address] [place] [address] Dr. Jaja Meadows EGFR-NON AF NEPALESE 48 mL/min/1.73m2 Critically low >=60 [facility] Comment on above: Performed By: #### P TT, PT #### [facility] [address] [place] [address] Dr. Jaja Meadows Glucose [Mass/Vol] 143 mg/dL Critically high 74-106 [facility] Comment on above: Performed By: #### P TT, PT #### [facility] [address] [place] [address] Dr. Jaja Meadows Potassium [Moles/Vol] 4.2 mmol/L Normal 3.5-5.1 [facility] Comment on above: Performed By: #### P TT, PT #### [facility] [address] [place] [address] Dr. Jaja Meadows Sodium [Moles/Vol] 139 mmol/L Normal 136-145 [facility] Comment on above: Performed By: #### P TT, PT #### [facility] [address] [place] [address] Dr. Jaja Meadows Urea nitrogen [Mass/Vol] 29.0 mg/dL Critically high 7.0-18.0 [facility] Comment on above: Performed By: #### P TT, PT #### [facility] [address] [address] [address] Jaja Meadows Urea nitrogen/Creatinine [Mass ratio] 26.9 mg/mg Normal [facility] Comment on above: Performed By: #### P TT, PT #### [facility] [address] [address] [address] Jaja Meadows Echocardiogramon 06-07-[address], [address], [place] [address] TRANSTHORACIC ECHOCARDIOGRAM REPORT Patient Name: MILIND Federico Physician: [id number] Tylor Shanks MD, [facility] Study Date: 06/07/2022 Referring [id number] ISMAEL LAWSON Physician: MRN/PID: [id number] PCP: Sara Blake Accession/Order#: [id number] [facility] Location: Date of : 1935 Fellow: Gender: F Nurse: Admit Date: Side Door Man: Rosalba Cedeno RD, T Height: 154.94 cm CC Report to: Weight: 56.70 kg Study Type: Echocardiogram BSA: 1.55 m2 Blood Pressure: 154 /82 mmHg Diagnosis/ICD: [id number] syndrome Indication: Abnormal EKG-RBBB, HTN, MS-05/07/2022, Anxiety Procedure/CPT: Echo Limited-[id number] Study Detail: The following Echo studies were performed: 2D and M-Mode. PHYSICIAN INTERPRETATION: Left Ventricle: Left ventricular systolic function is normal, with an estimated ejection fraction of 65%. There are no regional wall motion abnormalities. The left ventricular cavity size is normal. Left ventricular diastolic filling was not assessed. Left Atrium: The left atrium is normal in size. Right Ventricle: The right ventricle is normal in size. There is normal right ventricular global systolic function. Right Atrium: The right atrium is normal in size. Aortic Valve: The aortic valve is trileaflet. Aortic valve regurgitation was not assessed. Mitral Valve: The mitral valve is mildly thickened. Mitral valve regurgitation was not assessed. Tricuspid Valve: The tricuspid valve is structurally normal. Tricuspid regurgitation was not assessed. Pulmonic Valve: The pulmonic valve is not well visualized. The pulmonic valve regurgitation was not assessed. Pericardium: There is no pericardial effusion noted. Aorta: The aortic root is normal. Systemic Veins: The inferior vena cava appears to be of normal size. CONCLUSIONS: 1. Left ventricular systolic function is normal with a 65% estimated ejection fraction. QUANTITATIVE DATA SUMMARY: 2D MEASUREMENTS: Normal Ranges: Ao Root d: 3.20 cm (2.0-3.7cm) LAs: 3.50 cm (2.7-4.0cm) RVIDd: 3.50 cm (0.9-3.6cm) IVSd: 1.40 cm (0.6-1.1cm) LVPWd: 0.90 cm (0.6-1.1cm) LVIDd: 4.00 cm (3.9-5.9cm) LVIDs: 3.00 cm LV Mass Index: 100.4 g/m2 LV % FS 25.0 % LV SYSTOLIC FUNCTION BY 2D PLANIMETRY (MOD): Normal Ranges: EF-A4C View: 71.2 % (>55%) AORTIC VALVE: Normal Ranges: LVOT Diameter: 2.10 cm (1.8-2.4cm) [id number] Tylor Shanks MD, FACC Electronically signed on 06/13/2022 at 7:17:04 PM Final Normal [facility] Echocardiography Please click on the link to view the study images Normal [facility] [employer] [address] [place] Work Phone: Falls Screening (Age 18+)on 06-07-2022 Fall risk assessment a) No falls within the last year [facility] [address] [place] Work Phone: CULTURE URINEon 06-04-2022 CULTURE URINE Isolate 1 Escherichia coli >100,000 cfu/mL of ORGANISM 1 Escherichia coli ANTIBIOTIC M.I.C RX STATUS Ampicillin >=32 R F Ampicillin/Sulbactam 16 I F Piperacillin/Tazobactam <=4 S F Cefazolin <=4 S F Ceftazidime <=1 S F Ceftriaxone <=1 S F Ertapenem <=0.5 S F Imipenem <=0.25 S F Amikacin <=2 S F Gentamicin <=1 S F Tobramycin <=1 S F Ciprofloxacin <=0.25 S F Levofloxacin 1 S F Nitrofurantoin <=16 S F Trimethoprim/Sulfamethoxa zole <=20 S F Normal [facility] Comment on above: Performed By: #### P TT, PT #### [facility] [address] [place] [address] Dr. Jaja Meadows UA RANDOM W/MICROSCOPICon BACTERIA LARGE Abnormal NONE SEEN [facility] Comment on above: Performed By: #### P TT, PT #### [facility] [address] [place] [address] Dr. Jaja Meadows Bilirubin Ql (U) Negative Normal NEGATIVE [facility] Comment on above: Performed By: #### P TT, PT #### [facility] [address] [place] [address] Dr. Jaja Meadows CAST NONE SEEN Normal NONE SEEN [facility] Comment on above: Performed By: #### P TT, PT #### [facility] [address] [place] [address] Dr. Jaja Meadows Clarity (U) SL CLOUDY Abnormal CLEAR [facility] Comment on above: Performed By: #### P TT, PT #### [facility] [address] [place] [address] Dr. Jaja Meadows Color (U) LT. YELLOW Normal YELLOW [facility] Comment on above: Performed By: #### P TT, PT #### [facility] [address] [place] [address] Dr. Jaja Meadows Crystals LM Nom (Urine sed) NONE SEEN Normal NONE SEEN [facility] Comment on above: Performed By: #### P TT, PT #### [facility] [address] [place] [address] Dr. Jaja Meadows Epithelial cells LM Ql (Urine sed) FEW Abnormal NONE SEEN /RARE [facility] Comment on above: Performed By: #### P TT, PT #### [facility] [address] [place] [address] Dr. Jaja Meadows Glucose Ql (U) Negative Normal NEGATIVE [facility] Comment on above: Performed By: #### P TT, PT #### [facility] [address] [place] [address] Dr. Jaja Meadows Hemoglobin Ql (U) TRACE-INTACT Abnormal NEGATIVE [facility] Comment on above: Performed By: #### P TT, PT #### [facility] [address] [place] [address] Dr. Jaja Meadows Ketones Ql (U) Negative Normal NEGATIVE [facility] Comment on above: Performed By: #### P TT, PT #### [facility] [address] [place] [address] Dr. Jaja Meadows LEUKOCYTES TRACE Abnormal NEGATIVE [facility] Comment on above: Performed By: #### P TT, PT #### [facility] [address] [place] [address] Dr. Jaja Meadows MUCOUS NONE SEEN Normal NONE SEEN [facility] Comment on above: Performed By: #### P TT, PT #### [facility] [address] [place] [address] Dr. Jaja Meadows Nitrite Ql (U) Positive Abnormal NEGATIVE [facility] Comment on above: Performed By: #### P TT, PT #### [facility] [address] [place] [address] Dr. Jaja Meadows pH (U) 6.5 [pH] Normal 5-9 [facility] Comment on above: Performed By: #### P TT, PT #### [facility] [address] [place] [address] Dr. Jaja Meadows RBC 0-2 Normal 0-2 [facility] Comment on above: Performed By: #### P TT, PT #### [facility] [address] [place] [address] Dr. Jaja Meadows SPEC GRAVITY 1.020 Normal 1.005-<=1. 025 [facility] Comment on above: Performed By: #### P TT, PT #### [facility] [address] [place] [address] Dr. Jaja Meadows UA PROTEIN Negative Normal NEGATIVE/ TRACE [facility] Comment on above: Performed By: #### P TT, PT #### [facility] [address] [place] [address] Dr. Jaja Meadows Urobilinogen Qn (U) 0.2 {Son'U}/dL Normal 0.2 - 1. 0 [facility] Comment on above: Performed By: #### P TT, PT #### [facility] [address] [place] [address] Dr. Jaja Meadows WBC 20-50 Abnormal NONE SEEN [facility] Comment on above: Performed By: #### P TT, PT #### [facility] [address] [place] [address] Dr. Jaja Meadows TSHon 05-21-2022 TSH 2.591 uIU/mL Normal 0.358-3.74 0 [facility] Comment on above: Performed By: #### C VDTBH #### [facility] [address] [place] [address] Dr. Jaja Meadows VITAMIN B12on 05-21-2022 Cobalamin (Vitamin B12) [Mass/Vol] 403.0 pg/mL Normal 193.0-986. 0 [facility] Comment on above: Performed By: #### C VDTBH #### [facility] [address] [place] [address] Dr. Jaja Meadows Tobacco Screening.on 022 Fall risk assessment a) No falls within the last year [facility] [address] Work Phone: Tobacco use status [facility]PH[facility] b) No [facility] [address] [place] Work Phone: CBC AUTO DIFFon 05-07-2022 BASO # 0.0 103/ul Normal 0.0-0.1 [facility] Comment on above: Performed By: #### C VDTBH #### [facility] [address] [place] [address] Dr. Jaja Meadows Basophils/100 WBC (Bld) 0.4 % Normal 0.2-2.0 [facility] Comment on above: Performed By: #### C VDTBH #### [facility] [address] [place] [address] Dr. Jaja Meadows EO # 0.1 103/ul Normal 0.0-0.7 [facility] Comment on above: Performed By: #### C VDTBH #### [facility] [address] [place] [address] Dr. Jaja Meadows Eosinophils/100 WBC (Bld) 1.3 % Normal 0.9-7.0 [facility] Comment on above: Performed By: #### C VDTBH #### [facility] [address] [place] [address] Dr. Jaja Meadows Erythrocyte distribution width (RBC) [Ratio] 13.6 % Normal 11.0-15.0 [facility] Comment on above: Performed By: #### C VDTBH #### [facility] [address] [place] [address] Dr. Jaja Meadows Hematocrit (Bld) [Volume fraction] 41.4 % Normal 36.0-48.0 [facility] Comment on above: Performed By: #### C VDTBH #### [facility] [address] [place] [address] Dr. Jaja Meadows Hemoglobin (Bld) [Mass/Vol] 13.2 g/dL Normal 12.0-16.0 [facility] Comment on above: Performed By: #### C VDTBH #### [facility] [address] [place] [address] Dr. Jaja Meadows IG # 0.04 10e3/ul Critically high 0.00-0.03 [facility] Comment on above: Performed By: #### C VDTBH #### [facility] [address] [place] [address] Dr. Jaja Meadows IG % 0.6 % Critically high 0.0-0.5 [facility] Comment on above: Performed By: #### C VDTBH #### [facility] [address] [place] [address] Dr. Jaja Meadows LYMPH # 2.3 103/ul Normal 1.2-3.8 [facility] Comment on above: Performed By: #### C VDTBH #### [facility] [address] [place] [address] Dr. Jaja Meadows Lymphocytes/100 WBC (Bld) 34.0 % Normal 20.5-60.0 [facility] Comment on above: Performed By: #### C VDTBH #### [facility] [address] [place] [address] Dr. Jaja Meadows MANUAL DIFF REQ NO Normal [facility] Comment on above: Performed By: #### C VDTBH #### [facility] [address] [place] [address] Dr. Jaja Meadows MCH (RBC) [Entitic mass] 30.4 pg Normal 26.7-34.0 [facility] Comment on above: Performed By: #### C VDTBH #### [facility] [address] [place] [address] Dr. Jaja Meadows MCHC (RBC) [Mass/Vol] 31.9 g/dL Normal 29.9-35.2 [facility] Comment on above: Performed By: #### C VDTBH #### [facility] [address] [place] [address] Dr. Jaja Meadows MCV (RBC) [Entitic vol] 95.4 fL Normal 81.0-99.0 [facility] Comment on above: Performed By: #### C VDTBH #### [facility] [address] [place] [address] Dr. Jaja Meadows MONO # 0.5 103/ul Normal 0.3-0.8 [facility] Comment on above: Performed By: #### C VDTBH #### [facility] [address] [place] [address] Dr. Jaja Meadows Monocytes/100 WBC (Bld) 7.9 % Normal 1.7-12.0 [facility] Comment on above: Performed By: #### C VDTBH #### [facility] [address] [place] [address] Dr. Jaja Meadows NEUT # 3.8 103/ul Normal 1.4-6.5 [facility] Comment on above: Performed By: #### C VDTBH #### [facility] [address] [place] [address] Dr. Jaja Meadows Neutrophils/100 WBC (Bld) 55.8 % Normal 43.0-75.0 [facility] Comment on above: Performed By: #### C VDTBH #### [facility] [address] [place] [address] Dr. Jaja Meadows Platelet mean volume (Bld) [Entitic vol] 9.3 fL Critically low 9.5-13.5 [facility] Comment on above: Performed By: #### C VDTBH #### [facility] [address] [place] [address] Dr. Jaja Meadows PLT 245 103/ul Normal 150-450 [facility] Comment on above: Performed By: #### C VDTBH #### [facility] [address] [place] [address] Dr. Jaja Meadows RBC 4.34 106/ul Normal 4.20-5.40 [facility] Comment on above: Performed By: #### C VDTBH #### [facility] [address] [place] [address] Dr. Jaja Meadows WBC 6.9 103/ul Normal 4.0-11.0 [facility] Comment on above: Performed By: #### C VDTBH #### [facility] [address] [place] [address] Dr. Jaja Meadows Cov[facility]-19 PCR ([facility]on 04-23 SARS-CoV-2 (COVID-19) RNA GASTON+probe Ql (Unsp spec) Not detected Normal NOT DETECTED [facility] Comment on above: Result Comment: When diagnostic testing is negative, the possibility of a false negative should be considered in the context of a patient's recent exposures and the presence of clinical signs and symptoms consistent with SARS-CoV-2. This test is not yet approved or cleared by the [place] FDA. When there are no FDA-approved or cleared tests available, and other criteria are met, FDA can make tests available under an emergency access mechanism called an Emergency Use Authorization (EUA). The EUA for this test is supported by the [place] of Health and Human Service's declaration that circumstances exist to justify the emergency use of in vitro diagnostics for the detection and/or diagnosis of the virus that causes COVID-19. This EUA will remain in effect for the duration of the COVID-19 declaration justifying emergency of IVDs, unless it is terminated or revoked by the FDA (after which the test may no longer be used). Performed By: #### C VDTBH #### [facility] [address] [place] [address] Dr. Jaja Meadows PROF 14(COMP METB)on 022 Albumin [Mass/Vol] 3.2 g/dL Critically low 3.4-5.0 [facility] Comment on above: Performed By: #### C MP, HSTROPN #### [facility] [address] [place] [address] Dr. Jaja Meadows Albumin/Globulin [Mass ratio] 1.0 {ratio} Normal [facility] Comment on above: Performed By: #### C MP, HSTROPN #### [facility] [address] [place] [address] Dr. Jaja Meadows ALP [Catalytic activity/Vol] 60 U/L Normal 46-116 [facility] Comment on above: Performed By: #### C MP, HSTROPN #### [facility] [address] [place] [address] Dr. Jaja Meadows ALT [Catalytic activity/Vol] 20 U/L Normal 14-59 [facility] Comment on above: Performed By: #### C MP, HSTROPN #### [facility] [address] [place] [address] Dr. Jaja Meadows Anion gap [Moles/Vol] 10.3 mmol/L Normal [facility] Comment on above: Performed By: #### C MP, HSTROPN #### [facility] [address] [address] [address] Jaja Meadows AST [Catalytic activity/Vol] 19 U/L Normal 15-37 [facility] Comment on above: Performed By: #### C MP, HSTROPN #### [facility] [address] [address] [address] Jaja Meadows Bilirubin [Mass/Vol] 0.3 mg/dL Normal 0.2-1.0 [facility] Comment on above: Performed By: #### C MP, HSTROPN #### [facility] [address] [place] [address] Dr. Jaja Meadows Calcium [Mass/Vol] 8.9 mg/dL Normal 8.5-10.1 [facility] Comment on above: Performed By: #### C JESSIE, HSTROPN #### [facility] [address] [place] [address] Dr. Jaja Meadows Chloride [Moles/Vol] 107 mmol/L Normal 98-107 [facility] Comment on above: Performed By: #### C JESSIE, HSTROPN #### [facility] [address] [place] [address] Dr. Jaja Meadows CO2 [Moles/Vol] 29.3 mmol/L Normal 21.0-32.0 [facility] Comment on above: Performed By: #### C MP, HSTROPN #### [facility] [address] [place] [address] Dr. Jaja Meadows Creatinine [Mass/Vol] 0.99 mg/dL Normal 0.55-1.02 [facility] Comment on above: Performed By: #### C MP, HSTROPN #### [facility] [address] [place] [address] Dr. Jaja Meadows EGFR-AF NEPALESE >60 Normal >=60 [facility] Comment on above: Performed By: #### C MP, HSTROPN #### [facility] [address] [place] [address] Dr. Jaja Meadows EGFR-NON AF NEPALESE 53 mL/min/1.73m2 Critically low >=60 [facility] Comment on above: Performed By: #### C MP, HSTROPN #### [facility] [address] [address] [address] Jaja Meadows Globulin (S) [Mass/Vol] 3.1 g/dL Normal [facility] Comment on above: Performed By: #### C MP, HSTROPN #### [facility] [address] [address] [address] Jaja Meadows Glucose [Mass/Vol] 117 mg/dL Critically high 74-106 T [facility] Comment on above: Performed By: #### C MP, HSTROPN #### [facility] [address] [place] [address] Dr. Jaja Meadows Potassium [Moles/Vol] 3.6 mmol/L Normal 3.5-5.1 [facility] Comment on above: Performed By: #### C MP, HSTROPN #### [facility] [address] [address] [address] Jaja Meadows Protein [Mass/Vol] 6.3 g/dL Critically low 6.4-8.2 [facility] Comment on above: Performed By: #### C MP, HSTROPN #### [facility] [address] [address] [address] Jaja Meadows Sodium [Moles/Vol] 143 mmol/L Normal 136-145 [facility] Comment on above: Performed By: #### C MP, HSTROPN #### [facility] [address] [address] [address] Jaja Meadows Urea nitrogen [Mass/Vol] 26.0 mg/dL Critically high 7.0-18.0 [facility] Comment on above: Performed By: #### C MP, HSTROPN #### [facility] [address] [address] [address] Jaja Meadows Urea nitrogen/Creatinine [Mass ratio] 26.3 mg/mg Normal [facility] Comment on above: Performed By: #### C MP, HSTROPN #### [facility] [address] [place] [address] Dr. Jaja Meadows PROTIMEon 05-07-2022 INR Coag (PPP) [Relative time] 0.98 {INR} Normal [facility] Comment on above: Performed By: #### P TT, PT #### [facility] [address] [place] [address] Dr. Jaja Meadows INR GUIDELINES SEE BELOW Normal [facility] Comment on above: Result Comment: SEE RED INR: 2.0 - 3.0 CONDITIONS NOT LISTED BELOW 2.5 - 3.5 FOR PROSTHETIC HEART VALVE REPLACEMENT 2.5 - 3.5 RECURRENT THROMBOSIS Performed By: #### P TT, PT #### [facility] [address] [place] [address] Dr. Jaja Meadows PT Coag (PPP) [Time] 10.6 s Normal 9.0-11.6 [facility] Comment on above: Performed By: #### P TT, PT #### [facility] [address] [place] [address] Dr. Jaja Meadows PTTon 05-07-2022 aPTT Coag (Bld) [Time] 28.3 s Normal 22.3-36.2 [facility] Comment on above: Performed By: #### P TT, PT #### [facility] [address] [place] [address] Dr. Jaja Meadows TROPONIN, HIGH SENSITIVITYon 05-07-2022 HSTROP 2777.5 pg/mL Critically high 4.0-51.3 [facility] Comment on above: Result Comment: CUT- OFF POINTS HAVE BEEN ESTABLISHED BASED ON THE FOURTH UNIVERSAL DEFINITIONS OF MYOCARDIAL INFARCTION. THE UPPER REFERENCE LIMIT (URL) OF TROPONIN, DEFINED THE 99TH PERCENTILE OF cTnI DISTRIBUTION IN A REFERENCE POPULATION, HAS BEEN CONFIRMED THE DECISION THRESHOLD FOR MS DIAGNOSIS. Performed By: #### H STROPN #### [facility] [address] [place] [address] Dr. Jaja Meadows HSTROP 875.9 pg/mL Critically high 4.0-51.3 [facility] Comment on above: Result Comment: CUT- OFF POINTS HAVE BEEN ESTABLISHED BASED ON THE FOURTH UNIVERSAL DEFINITIONS OF MYOCARDIAL INFARCTION. THE UPPER REFERENCE LIMIT (URL) OF TROPONIN, DEFINED THE 99TH PERCENTILE OF cTnI DISTRIBUTION IN A REFERENCE POPULATION, HAS BEEN CONFIRMED THE DECISION THRESHOLD FOR MS DIAGNOSIS. Performed By: #### C MP, HSTROPN #### [facility] [address] [place] [address] Dr. Jaja Meadows XR CHEST 1 Von 05-07-2022 XR CHEST 1 V HISTORY: Chest pain. XR CHEST 1 V: 05/07/2022 6:06 AM EDT COMPARISON: PA and lateral chest 07/29/2020. FINDINGS: The heart appears within normal limits in size allowing for the portable technique. Mild elevation of the right hemidiaphragm is again seen. No focal consolidation, pleural effusion, pneumothorax or evidence of congestive heart failure is seen. IMPRESSION: No radiographic evidence of active cardiopulmonary disease is seen. Electronically authenticated by: ANUPAMA CASAREZ Date: 2022-05-07 06:42 Normal [facility] CULTURE URINEon 05-01-2022 CULTURE URINE Isolate 1 Escherichia coli >100,000 cfu/mL of ORGANISM 1 Escherichia coli ANTIBIOTIC M.I.C RX STATUS Ampicillin <=2 S F Ampicillin/Sulbactam <=2 S F Piperacillin/Tazobactam <=4 S F Cefazolin <=4 S F Ceftazidime <=1 S F Ceftriaxone <=1 S F Ertapenem <=0.5 S F Imipenem <=0.25 S F Amikacin <=2 S F Gentamicin <=1 S F Tobramycin <=1 S F Ciprofloxacin <=0.25 S F Levofloxacin <=0.12 S F Nitrofurantoin <=16 S F Trimethoprim/Sulfamethoxa zole <=20 S F Normal [facility] Comment on above: Performed By: #### P TT, PT #### [facility] [address] [place] [address] Dr. Jaja Meadows UA RANDOM W/MICROSCOPICon BACTERIA LARGE Abnormal NONE SEEN [facility] Comment on above: Performed By: #### C VDTBH #### [facility] [address] [place] [address] Dr. Jaja Meadows Bilirubin Ql (U) Negative Normal NEGATIVE [facility] Comment on above: Performed By: #### C VDTBH #### [facility] [address] [place] [address] Dr. Jaja Meadows CAST NONE SEEN Normal NONE SEEN [facility] Comment on above: Performed By: #### C VDTBH #### [facility] [address] [place] [address] Dr. Jaja Meadows Clarity (U) CLEAR Normal CLEAR [facility] Comment on above: Performed By: #### C VDTBH #### [facility] [address] [place] [address] Dr. Jaja Meadows Color (U) LT. YELLOW Normal YELLOW [facility] Comment on above: Performed By: #### C VDTBH #### [facility] [address] [place] [address] Dr. Jaja Meadows Crystals LM Nom (Urine sed) NONE SEEN Normal NONE SEEN [facility] Comment on above: Performed By: #### C VDTBH #### [facility] [address] [place] [address] Dr. Jaja Meadows Epithelial cells LM Ql (Urine sed) NONE SEEN Normal NONE SEEN /RARE [facility] Comment on above: Performed By: #### C VDTBH #### [facility] [address] [place] [address] Dr. Jaja Meadows Glucose Ql (U) Negative Normal NEGATIVE [facility] Comment on above: Performed By: #### C VDTBH #### [facility] [address] [place] [address] Dr. Jaja Meadows Hemoglobin Ql (U) TRACE-INTACT Abnormal NEGATIVE [facility] Comment on above: Performed By: #### C VDTBH #### [facility] [address] [place] [address] Dr. Jaja Meadows Ketones Ql (U) Negative Normal NEGATIVE [facility] Comment on above: Performed By: #### C VDTBH #### [facility] [address] [place] [address] Dr. Jaja Meadows LEUKOCYTES MODERATE Abnormal NEGATIVE [facility] Comment on above: Performed By: #### C VDTBH #### [facility] [address] [place] [address] Dr. Jaja Meadows MUCOUS NONE SEEN Normal NONE SEEN [facility] Comment on above: Performed By: #### C VDTBH #### [facility] [address] [place] [address] Dr. Jaja Meadows Nitrite Ql (U) Positive Abnormal NEGATIVE [facility] Comment on above: Performed By: #### C VDTBH #### [facility] [address] [place] [address] Dr. Jaja Meadows pH (U) 7.0 [pH] Normal 5-9 [facility] Comment on above: Performed By: #### C VDTBH #### [facility] [address] [place] [address] Dr. Jaja Meadows RBC 0-2 Normal 0-2 [facility] Comment on above: Performed By: #### C VDTBH #### [facility] [address] [place] [address] Dr. Jaja Meadows SPEC GRAVITY 1.010 Normal 1.005-<=1. 025 [facility] Comment on above: Performed By: #### C VDTBH #### [facility] [address] [place] [address] Dr. Jaja Meadows UA PROTEIN Negative Normal NEGATIVE/ TRACE [facility] Comment on above: Performed By: #### C VDTBH #### [facility] [address] [place] [address] Dr. Jaja Meadows Urobilinogen Qn (U) 0.2 {Son'U}/dL Normal 0.2 - 1. 0 [facility] Comment on above: Performed By: #### C VDTBH #### [facility] [address] [place] [address] Dr. Jaja Meadows WBC 20-50 Abnormal NONE SEEN [facility] Comment on above: Performed By: #### C VDTBH #### [facility] [address] [place] [address] Dr. Jaja Meadows CBC AUTO DIFFon 04-14-2022 BASO # 0.0 103/ul Normal 0.0-0.1 [facility] Comment on above: Performed By: #### B MP #### [facility] [address] [address] [address] Jaja Meadows Basophils/100 WBC (Bld) 0.6 % Normal 0.2-2.0 [facility] Comment on above: Performed By: #### B MP #### [facility] [address] [address] [address] Jaja Meadows EO # 0.1 103/ul Normal 0.0-0.7 [facility] Comment on above: Performed By: #### B MP #### [facility] [address] [place] [address] Dr. Jaja Meadows Eosinophils/100 WBC (Bld) 2.2 % Normal 0.9-7.0 [facility] Comment on above: Performed By: #### B MP #### [facility] [address] [place] [address] Dr. Jaja Meadows Erythrocyte distribution width (RBC) [Ratio] 14.5 % Normal 11.0-15.0 [facility] Comment on above: Performed By: #### B MP #### [facility] [address] [place] [address] Dr. Jaja Meadows Hematocrit (Bld) [Volume fraction] 40.4 % Normal 36.0-48.0 [facility] Comment on above: Performed By: #### B MP #### [facility] [address] [place] [address] Dr. Jaja Meadows Hemoglobin (Bld) [Mass/Vol] 13.0 g/dL Normal 12.0-16.0 [facility] Comment on above: Performed By: #### B MP #### [facility] [address] [place] [address] Dr. Jaja Meadows IG # 0.05 10e3/ul Critically high 0.00-0.03 [facility] Comment on above: Performed By: #### B MP #### [facility] [address] [place] [address] Dr. Jaja Meadows IG % 0.8 % Critically high 0.0-0.5 [facility] Comment on above: Performed By: #### B MP #### [facility] [address] [place] [address] Dr. Jaja Meadows LYMPH # 2.1 103/ul Normal 1.2-3.8 [facility] Comment on above: Performed By: #### B MP #### [facility] [address] [place] [address] Dr. Jaja Meadows Lymphocytes/100 WBC (Bld) 33.0 % Normal 20.5-60.0 [facility] Comment on above: Performed By: #### B MP #### [facility] [address] [place] [address] Dr. Jaja Meadows MANUAL DIFF REQ NO Normal [facility] Comment on above: Performed By: #### B MP #### [facility] [address] [place] [address] Dr. Jaja Meadows MCH (RBC) [Entitic mass] 30.7 pg Normal 26.7-34.0 [facility] Comment on above: Performed By: #### B MP #### [facility] [address] [place] [address] Dr. Jaja Meadows MCHC (RBC) [Mass/Vol] 32.2 g/dL Normal 29.9-35.2 [facility] Comment on above: Performed By: #### B MP #### [facility] [address] [place] [address] Dr. Jaja Meadows MCV (RBC) [Entitic vol] 95.5 fL Normal 81.0-99.0 [facility] Comment on above: Performed By: #### B MP #### [facility] [address] [place] [address] Dr. Jaja Meadows MONO # 0.6 103/ul Normal 0.3-0.8 [facility] Comment on above: Performed By: #### B MP #### [facility] [address] [place] [address] Dr. Jaja Meadows Monocytes/100 WBC (Bld) 9.6 % Normal 1.7-12.0 [facility] Comment on above: Performed By: #### B MP #### [facility] [address] [place] [address] Dr. Jaja Meadows NEUT # 3.4 103/ul Normal 1.4-6.5 [facility] Comment on above: Performed By: #### B MP #### [facility] [address] [place] [address] Dr. Jaja Meadows Neutrophils/100 WBC (Bld) 53.8 % Normal 43.0-75.0 [facility] Comment on above: Performed By: #### B MP #### [facility] [address] [place] [address] Dr. Jaja Meadows Platelet mean volume (Bld) [Entitic vol] 9.5 fL Normal 9.5-13.5 [facility] [facility] Comment on above: Performed By: #### B MP #### [facility] [address] [place] [address] Dr. Jaja Meadows PLT 233 103/ul Normal 150-450 [facility] Comment on above: Performed By: #### B MP #### [facility] [address] [place] [address] Dr. Jaja Meadows RBC 4.23 106/ul Normal 4.20-5.40 [facility] Comment on above: Performed By: #### B MP #### [facility] [address] [place] [address] Dr. Jaja Meadows WBC 6.3 103/ul Normal 4.0-11.0 [facility] Comment on above: Performed By: #### B MP #### [facility] [address] [place] [address] Dr. Jaja Meadows CRPon 04-14-2022 CRP [Mass/Vol] mg/L Normal <=1.0 [facility] Comment on above: Performed By: #### C VDTBH #### [facility] [address] [place] [address] Dr. Jaja Meadows PROF 14(COMP METB)on 022 Albumin [Mass/Vol] 3.5 g/dL Normal 3.4-5.0 [facility] Comment on above: Performed By: #### C VDTBH #### [facility] [address] [place] [address] Dr. Jaja Meadows Albumin/Globulin [Mass ratio] 1.1 {ratio} Normal [facility] Comment on above: Performed By: #### C VDTBH #### [facility] [address] [place] [address] Dr. Jaja Meadows ALP [Catalytic activity/Vol] 65 U/L Normal 46-116 [facility] Comment on above: Performed By: #### C VDTBH #### [facility] [address] [place] [address] Dr. Jaja Meadows ALT [Catalytic activity/Vol] 22 U/L Normal 14-59 [facility] Comment on above: Performed By: #### C VDTBH #### [facility] [address] [place] [address] Dr. Jaja Meadows Anion gap [Moles/Vol] 9.0 mmol/L Normal [facility] Comment on above: Performed By: #### C VDTBH #### [facility] [address] [place] [address] Dr. Jaja Meadows AST [Catalytic activity/Vol] 18 U/L Normal 15-37 [facility] Comment on above: Performed By: #### C VDTBH #### [facility] [address] [place] [address] Dr. Jaja Meadows Bilirubin [Mass/Vol] 0.5 mg/dL Normal 0.2-1.0 [facility] Comment on above: Performed By: #### C VDTBH #### [facility] [address] [place] [address] Dr. Jaja Meadows Calcium [Mass/Vol] 8.7 mg/dL Normal 8.5-10.1 [facility] Comment on above: Performed By: #### C VDTBH #### [facility] [address] [place] [address] Dr. Jaja Meadows Chloride [Moles/Vol] 105 mmol/L Normal 98-107 [facility] Comment on above: Performed By: #### C VDTBH #### [facility] [address] [address] [address] Jaja eMadows CO2 [Moles/Vol] 30.8 mmol/L Normal 21.0-32.0 [facility] Comment on above: Performed By: #### C VDTBH #### [facility] [address] [address] [address] Jaja Meadows Creatinine [Mass/Vol] 1.05 mg/dL Critically high 0.55-1.02 [facility] Comment on above: Performed By: #### C VDTBH #### [facility] [address] [place] [address] Dr. Jaja Meadows EGFR-AF NEPALESE >60 Normal >=60 [facility] Comment on above: Performed By: #### C VDTBH #### [facility] [address] [address] [address] Jaja Meadows EGFR-NON AF NEPALESE 50 mL/min/1.73m2 Critically low >=60 [facility] Comment on above: Performed By: #### C VDTBH #### [facility] [address] [place] [address] Dr. Jaja Meadows Globulin (S) [Mass/Vol] 3.1 g/dL Normal [facility] Comment on above: Performed By: #### C VDTBH #### [facility] [address] [address] [address] Jaja Meadows Glucose [Mass/Vol] 76 mg/dL Normal 74-106 [facility] Comment on above: Performed By: #### C VDTBH #### [facility] [address] [address] [address] Jaja Meadows Potassium [Moles/Vol] 3.8 mmol/L Normal 3.5-5.1 [facility] Comment on above: Performed By: #### C VDTBH #### [facility] [address] [address] [address] Jaja Meadows Protein [Mass/Vol] 6.6 g/dL Normal 6.4-8.2 [facility] Comment on above: Performed By: #### C VDTBH #### [facility] [address] [place] [address] Dr. Jaja Meadows Sodium [Moles/Vol] 141 mmol/L Normal 136-145 [facility] Comment on above: Performed By: #### C VDTBH #### [facility] [address] [place] [address] Dr. Jaja Meadows Urea nitrogen [Mass/Vol] 25.0 mg/dL Critically high 7.0-18.0 [facility] Comment on above: Performed By: #### C VDTBH #### [facility] [address] [place] [address] Dr. Jaja Meadows Urea nitrogen/Creatinine [Mass ratio] 23.8 mg/mg Normal [facility] Comment on above: Performed By: #### C VDTBH #### [facility] [address] [place] [address] Dr. Jaja Meadows [facility] SED RATE 5 mm/hr Normal <=30 [facility] Comment on above: Performed By: #### P TT, PT #### [facility] [address] [place] [address] Dr. Jaja Meadows Patient Educationon 12-08-19 Patient Education Urology Urethral Stricture Urethral stricture is narrowing of the tube (urethra) that carries urine from the bladder out of the body. The urethra can become narrow due to scar tissue from an injury or infection. This can make it difficult to pass urine. In women, the urethra opens above the vaginal opening. In men, the urethra opens at the tip of the penis, and the urethra is much longer than it is in women. Because of the length of the male urethra, urethral stricture is much more common in men. This condition is treated with surgery. What are the causes? In both men and women, common causes of urethral stricture include: ? Urinary tract infection (UTI). ? Sexually transmitted infection (STI). ? Use of a tube placed into the urethra to drain urine from the bladder (urinary catheter). ? Urinary tract surgery. In men, common causes of urethral stricture include: ? A severe injury to the pelvis. ? Prostate surgery. ? Injury to the penis. In many cases, the cause of urethral stricture is not known. What increases the risk? You are more likely to develop this condition if you: ? Are male. Men who have had prostate surgery are at risk of developing this condition. ? Use a urinary catheter. ? Have had urinary tract surgery. What are the signs or symptoms? The main symptom of this condition is difficulty passing urine. This may cause decreased urine flow, dribbling, or spraying of urine. Other symptom of this condition may include: ? Frequent UTIs. ? Blood in the urine. ? Pain when urinating. ? Swelling of the penis in men. ? Inability to pass urine (urinary obstruction). How is this diagnosed? This condition may be diagnosed based on: ? Your medical history and a physical exam. ? Urine tests to check for infection or bleeding. ? X-rays. ? Ultrasound. ? Retrograde urethrogram. This is a type of test in which dye is injected into the urethra and then an X-ray is taken. ? Urethroscopy. This is when a thin tube with a light and camera on the end (urethroscope) is used to look at the urethra. How is this treated? This condition is treated with surgery. The type of surgery that you have depends on the severity of your condition. You may have: ? Urethral dilation. In this procedure, the narrow part of the urethra is stretched open (dilated) with dilating instruments or a small balloon. ? Urethrotomy. In this procedure, a urethroscope is placed into the urethra, and the narrow part of the urethra is cut open with a surgical blade inserted through the urethroscope. ? Open surgery. In this procedure, an incision is made in the urethra, the narrow part is removed, and the urethra is reconstructed. Follow these instructions at home: ? Take [id number] and prescription medicines only as told by your health care provider. ? If you were prescribed an antibiotic medicine, take it as told by your health care provider. Do not stop taking the antibiotic even if you start to feel better. ? Drink enough fluid to keep your urine pale yellow. ? Keep all follow-up visits as told by your health care provider. This is important. Contact a health care provider if: ? You have signs of a urinary tract infection, such as: ? Frequent urination or passing small amounts of urine frequently. ? Needing to urinate urgently. ? Pain or burning with urination. ? Urine that smells bad or unusual. ? Cloudy urine. ? Pain in the lower abdomen or back. ? Trouble urinating. ? Blood in the urine. ? Vomiting or being less hungry than normal. ? Diarrhea or abdominal pain. ? Vaginal discharge, if you are female. ? Your symptoms are getting worse instead of better. Get help right away if: ? You cannot pass urine. ? You have a fever. ? You have swelling, bruising, or discoloration of your genital area. This includes the penis, scrotum, and inner thighs for men, and the outer genital organs (vulva) and inner thighs for women. ? You develop swelling in your legs. ? You have difficulty breathing. Summary ? Urethral stricture is narrowing of the tube (urethra) that carries urine from the bladder out of the body. The urethra can become narrow due to scar tissue from an injury or infection. ? This condition can make it difficult to pass urine. ? This condition is treated with surgery. The type of surgery that you have depends on the severity of your condition. ? Contact a health care provider if your symptoms get worse or you have signs of a urinary tract infection. This information is not intended to replace advice given to you by your health care provider. Make sure you discuss any questions you have with your health care provider. Document Released: 11/05/2016 Document Revised: 05/23/2019 Document Reviewed: 05/23/2019 [employer] Patient Education ? 2019 [employer] [facility] U[facility] Phone Visit- Telehealth Chief Complaint 6 month follow up. Phone Visit [facility] Staff Milind is a 86 year old female here today for a 6 month follow up. Previous DX: hematuria, history of UTI, incomplete bladder emptying, nocturia, recurrent UTI, urethral stricture, urge incontinence. S/P Dilation of urethra 12/08/20. Dysuria: _Denies Incomplete bladder emptying: _Denies Hematuria: _Denies Frequency: _3-4 hours Urgency: _Denies Nocturia: _1 a night due to the environment (other things wake her up) Stream: _steady Leaking: _Denies Post void dripping: _Denies Wearing pads/ Depends: _Denies Urge incontinence: _Denies Stress incontinence: _Denies Incontinence without Sensory Awareness: _Denies Abdominal pain: _Denies Flank pain: _Denies Sexual complaints: _ History of Present Illness staff HPI reviewed and agree. Review of Systems no fever, chills, malaise, myalgia. no rash/lesions. no chest pain, palpitations, or SOB. no abdominal pain, nausea, vomiting. no unilateral calf swelling, redness, pain Physical Exam Vitals & Measurements RR: 16 HT: 154.0 cm HT: 154 cm WT: 57.0 kg WT: 57.0 kg BMI: 24.03 n/a phone visit Assessment/Plan 1. Recurrent UTI (N39.0: Urinary tract infection, site not specified) hasn't had a UTI in over a year. has been off the estrogen cream for at least 3 months. does not wish to go back on at this time. Today we discussed the following methods to decrease frequency of UTIs: 1) increase fluids 2) double voids (encouraged to lean forward, apply gentle pressure on the bladder, and standing then sitting again) 3) I discussed that there is evidence that herbal supplements may help - cranberry, probiotics, and d-mannose. 4) proper hygiene habits (wipe front to back every time, avoid baths & hot tubs, avoid any scented TUBE MAN products, urinate after sexual activity, etc) Ordered: Telephone Est 11 to 20 minutes [id number] 2. Urethral stricture (N35.919: Unspecified urethral stricture, male, unspecified site) good steady stream. no complaints. offered f/u but pt prefers PRN Ordered: Telephone Est 11 to 20 minutes [id number] This visit was conducted via phone communications from my office due to the restrictions of the COVID-19 pandemic. No physical exam was conducted due to audio only communication with the patient located at [address] [place] [phone], with no one else. If it is determined that the patient should be evaluated in person, the patient will be directed to the appropriate clinic or venue. The patient or their guardian verbally consented to this visit. Phone time was 15 minutes discussing health issues with counseling and coordination of care. Follow-up No qualifying data available Patient Education Urethral Stricture Problem List/Past Medical History Ongoing Anxiety disorder Arthritis Chronic cystitis Diverticular disease Hematuria High cholesterol History of UTI Hypertension Incomplete bladder emptying Migraine Nocturia Recurrent UTI Urethral stricture Urge incontinence Historical No qualifying data Procedure/Surgical History Dilation of urethra (12/08/2020), Cystoscopy (12/06/2016), Cystoscopy (02/05/2016), Appendectomy, Cholecystectomy, Colonoscopy, EGD - Esophagogastroduodenoscop y, History of hysterectomy., Suspension of bladder. Medications Celebrex, Oral FiberCon Lovaza, Oral, BID omeprazole, Oral, Daily tramadol, Oral Xanax, Oral, TID Allergies Augmentin (Diarrhea) levoFLOXacin (Unknown) morphine (Unknown) nitrofurantoin (Headache) trimethoprim (Nausea) Social History Alcohol - Denies Alcohol Use, 08/21/2020 Tobacco - Denies Tobacco Use, 08/21/2020 Never (less than 100 in lifetime) Tobacco Use:., 08/25/2020 Never (less than 100 in lifetime) Tobacco Use:., 08/21/2020 Family History Stroke: Mother and Father. Immunizations Vaccine Date Status SARS-CoV-2 (COVID-19) Ad26 vaccine 01/02/2021 Recorded Normal [facility] Comment on above: Result Comment: Elec tronically Signed By: HALINA KENDRICK PA-C\.br\Date and Time Signed: 12/08/21 10:54 EST Vital Signs Date Time Vital Sign Value Performing Clinician Facility 04-19-2024 13:21-0400 Body height 157.48 cm MD Aravind Jackson Jr Work Phone: [facility] 04-19-2024 13:21-0400 Body mass index (BMI) [Ratio] 23 kg/m2 MD Aravind Jackson Jr Work Phone: [facility] 04-19-2024 13:21-0400 Body weight 57.15 kg MD Aravind Jackson Jr Work Phone: [facility] 04-19-2024 13:21-0400 Diastolic blood pressure 77 mm[Hg] MD Aravind Jackson Jr Work Phone: [facility] 04-19-2024 13:21-0400 Heart rate 79 /min MD Aravind Jackson Jr Work Phone: [facility] 04-19-2024 13:21-0400 Systolic blood pressure 113 mm[Hg] MD Aravind Jackson Jr Work Phone: [facility] 03-21-2024 10:53-0400 Body height 154.9 cm Esteban Pineda CLINICAL RESOURCE COORDINATOR-LINE [employer] Work Phone: [facility] 03-21-2024 10:53-0400 Body mass index (BMI) [Ratio] 23.88 kg/m2 Esteban Pineda CLINICAL RESOURCE COORDINATOR-LINE [employer] Work Phone: [facility] 03-21-2024 10:53-0400 Body weight 57.34 kg Esteban Pineda CLINICAL RESOURCE COORDINATOR-LINE [employer] Work Phone: [facility] 03-21-2024 10:53-0400 Diastolic blood pressure 70 mm[Hg] Esteban Pineda CLINICAL RESOURCE COORDINATOR-LINE [employer] Work Phone: [facility] 03-21-2024 10:53-0400 Heart rate 68 /min Esteban Pineda CLINICAL RESOURCE COORDINATOR-LINE [employer] Work Phone: [facility] 03-21-2024 10:53-0400 Systolic blood pressure 110 mm[Hg] Esteban Pineda CLINICAL RESOURCE COORDINATOR-LINE [employer] Work Phone: [facility] 03-14-2024 14:13-0400 Body temperature 97.7 [degF] MD Aravind Jackson Jr Work Phone: [facility] 03-14-2024 14:13-0400 Diastolic blood pressure 75 mm[Hg] MD Aravind Jackson Jr Work Phone: [facility] 03-14-2024 14:13-0400 Heart rate 79 /min MD Aravind Jackson Jr Work Phone: [facility] 03-14-2024 14:13-0400 Respiratory rate 24 /min MD Aravind Jackson Jr Work Phone: [facility] 03-14-2024 14:13-0400 SaO2% (BldA) [Mass fraction] 94 % MD Aravind Jackson Jr Work Phone: [facility] 03-14-2024 14:13-0400 Systolic blood pressure 118 mm[Hg] MD Aravind Jackson Jr Work Phone: [facility] 03-14-2024 06:00-0400 Body weight 57.9 kg MD Aravind Jackson Jr Work Phone: [facility] 03-12-2024 14:40-0400 Body height 154.94 cm MD Aravind Jackson Jr Work Phone: [facility] 03-12-2024 03:00-0400 Inhaled oxygen flow rate 1 L/min MD Aravind Jackson Jr Work Phone: [facility] 03-09-2024 23:00-0400 Body temperature 96.5 [degF] MD Aravind Jackson Jr Work Phone: [facility] 03-09-2024 23:00-0400 Diastolic blood pressure 78 mm[Hg] MD Aravind Jackson Jr Work Phone: [facility] 03-09-2024 23:00-0400 Heart rate 77 /min MD Aravind Jackson Jr Work Phone: [facility] 03-09-2024 23:00-0400 Inhaled oxygen flow rate 3 L/min MD Aravind Jackson Jr Work Phone: [facility] 03-09-2024 23:00-0400 Respiratory rate 16 /min MD Aravind Jackson Jr Work Phone: [facility] 03-09-2024 23:00-0400 SaO2% (BldA) [Mass fraction] 94 % MD Aravind Jackson Jr Work Phone: [facility] 03-09-2024 23:00-0400 Systolic blood pressure 127 mm[Hg] MD Aravind Jackson Jr Work Phone: [facility] 03-09-2024 22:37-0400 Body height 154.94 cm MD Aravind Jackson Jr Work Phone: [facility] 03-09-2024 22:37-0400 Body weight 56.9 kg MD Aravind Jackson Jr Work Phone: [facility] 02-09-2024 13:33-0400 Body height 154.94 cm [facility] 02-09-2024 13:33-0400 Body mass index (BMI) [Ratio] 24.5 kg/m2 [facility] 02-09-2024 13:33-0400 Body weight 59.02 kg [facility] 02-09-2024 13:33-0400 Diastolic blood pressure 68 mm[Hg] [facility] 02-09-2024 13:33-0400 Heart rate 85 /min [facility] 02-09-2024 13:33-0400 SaO2% (BldA) [Mass fraction] 93 % [facility] 02-09-2024 13:33-0400 Systolic blood pressure 120 mm[Hg] [facility] 11-22-2023 13:15-0500 Body height 154.94 cm Sara Blake Other [facility] 11-22-2023 13:15-0500 Body mass index (BMI) [Ratio] 24.86 kg/m2 Sara Blake [email or web address] Other 11-22-2023 13:15-0500 Body weight 59.69 kg Sara Blake Other [facility] 11-22-2023 13:15-0500 Diastolic blood pressure 72 mm[Hg] Sara Blake Other [facility] 11-22-2023 13:15-0500 Systolic blood pressure 106 mm[Hg] Sara Blake Other [facility] 10-27-2023 13:30-0500 Body height 154.94 cm Sara Blake Other [email or web address] Other 10-27-2023 13:30-0500 Body mass index (BMI) [Ratio] 24.83 kg/m2 Sara Blake Other [email or web address] Other 10-27-2023 13:30-0500 Body weight 59.6 kg Sara Blake [email or web address] Other 10-27-2023 13:30-0500 Diastolic blood pressure 77 mm[Hg] Sara Blake Other [email or web address] Other 10-27-2023 13:30-0500 Systolic blood pressure 112 mm[Hg] Sara Blake Other [email or web address] Other 08-11-2023 13:30-0400 Body height 154.94 cm Sara Blake Other [email or web address] Other 08-11-2023 13:30-0400 Body mass index (BMI) [Ratio] 25.85 kg/m2 Sara Blake Other [email or web address] Other 08-11-2023 13:30-0400 Body weight 62.05 kg Sara Blake [email or web address] Other 08-11-2023 13:30-0400 Diastolic blood pressure 84 mm[Hg] Sara Blake Other [email or web address] Other 08-11-2023 13:30-0400 Systolic blood pressure 148 mm[Hg] Sara Blake Other [email or web address] Other 07-05-2023 12:52-0400 Body height 154.9 cm Kahlil Wakefield PA-C Work Phone: [employer] 07-05-2023 12:52-0400 Body mass index (BMI) [Ratio] 26.45 kg/m2 Kahlil Wakefield PA-C Work Phone: [employer] 07-05-2023 12:52-0400 Body temperature 98.2 [degF] Kahlil Wakefield PA-C Work Phone: [facility] 07-05-2023 12:52-0400 Body weight 63.5 kg Kahlil Wakefield PA-C Work Phone: [facility] 12-28-2022 15:12-0500 Body height 154.94 cm Sara Blake Work Phone: [facility] 250 DO Work Phone: 12-28-2022 15:12-0500 Body mass index (BMI) [Ratio] 24.56 kg/m2 Sara Blake Work Phone: [facility] 250 DO Work Phone: 12-28-2022 15:12-0500 Body surface area Derived from formula 1.57 m2 Sara Blake Work Phone: [facility] 250 DO Work Phone: 12-28-2022 15:12-0500 Body weight 58.97 kg Sara Blake Work Phone: [facility] 250 DO Work Phone: 12-28-2022 15:12-0500 Diastolic blood pressure 62 mm[Hg] Sara Blake Work Phone: [facility] 250 DO Work Phone: 12-28-2022 15:12-0500 Heart rate 58 /min Sara Blake Work Phone: [facility] 250 DO Work Phone: 12-28-2022 15:12-0500 Systolic blood pressure 110 mm[Hg] Sara Blake Work Phone: [facility] 250 DO Work Phone: 11-15-2022 14:30-0500 Body height 154.94 cm Sara Blake Other [email or web address] Other 11-15-2022 14:30-0500 Body mass index (BMI) [Ratio] 24.18 kg/m2 Sara Blake Other [email or web address] Other 11-15-2022 14:30-0500 Body weight 58.06 kg Sara Blake [email or web address] Other 11-15-2022 14:30-0500 Diastolic blood pressure 70 mm[Hg] aSra Blake Other [email or web address] Other 11-15-2022 14:30-0500 Systolic blood pressure 124 mm[Hg] Sara Blake Other [email or web address] Other 06-07-2022 10:45-0400 65 1 Sara Blake Work Phone: [facility] [employer] 250 DO Work Phone: Comment on above: [id number] 05-19-2022 12:17-0400 Body height 154.94 cm Sara Blake Work Phone: [email or web address] 250 DO Work Phone: 05-19-2022 12:17-0400 Body mass index (BMI) [Ratio] 23.24 kg/m2 Sara Blake Work Phone: [facility] [employer] 250 DO Work Phone: 05-19-2022 12:17-0400 Body surface area Derived from formula 1.54 m2 Sara Blake Work Phone: [employer] 250 DO Work Phone: 05-19-2022 12:17-0400 Body weight 55.79 kg Sara Blake Work Phone: [facility] [employer] 250 DO Work Phone: 05-19-2022 12:17-0400 Diastolic blood pressure 69 mm[Hg] Sara E Hayden Work Phone: [facility] 250 DO Work Phone: 05-19-2022 12:17-0400 Heart rate 51 /min Sara Blake Work Phone: [facility] [facility] DO Work Phone: 05-19-2022 12:17-0400 Systolic blood pressure 121 mm[Hg] Sara E Hayden Work Phone: [facility] 250 DO Work Phone: Encounters Encounter Date Encounter Type Care Provider Facility Start: 04-19-2024 End: 04-19-2024 Patient encounter procedure MD Aravind Jackson Jr Work Phone: [facility] Work Phone: Start: 04-19-2024 End: 04-19-2024 ambulatory MD Aravind Jackson Jr Work Phone: [facility] Work Phone: Start: 03-21-2024 End: 03-21-2024 ambulatory [facility] Ambulatory Start: 03-21-2024 End: 03-21-2024 Office outpatient visit 15 minutes [facility] CLINICAL RESOURCE COORDINATOR-LINE PALLETIZER Work Phone: [facility] Comment on above: Takotsubo syndrome ( Primary Dx); BMI 23.0-23.9, adult Start: 03-16-2024 Non-patient / Non-visit MD Jennifer Heath Work Phone: [facility] Work Phone: Start: 03-10-2024 End: 03-14-2024 Non-patient / Non-visit MD Aravind Jackson Jr Work Phone: [facility] Card[facility] Work Phone: Start: 03-10-2024 End: 03-14-2024 Non-patient / Non-visit MD Aravind Jackson Jr Work Phone: [facility] Pulmonary Disease Work Phone: Start: 03-09-2024 End: 03-14-2024 Evaluation and management of inpatient MD Aravind Jackson Jr Work Phone: [facility] [place] [facility] Work Phone: Start: 02-09-2024 End: 02-09-2024 ambulatory [facility] Work Phone: Start: 02-09-2024 End: 02-09-2024 Patient encounter procedure [facility] Work Phone: Start: 12-16-2023 Non-patient / Non-visit [facility] Work Phone: Start: 12-14-2023 Non-patient / Non-visit [facility] Work Phone: Start: 12-14-2023 Non-patient / Non-visit [facility] Work Phone: Start: 11-22-2023 End: 11-22-2023 ambulatory Sara Blake Other [email or web address] Other Start: 11-22-2023 Office outpatient vi sit 15 minutes Sara Blake [facility] Start: 11-22-2023 Telephone encounter Sara Blake [facility] Start: 11-22-2023 End: 11-22-2023 Patient encounter procedure [facility]- Start: 11-14-2023 End: 11-14-2023 ambulatory Sara Blake Other [email or web address] Other Start: 11-14-2023 Telephone encounter Sara Blake [facility] Start: 11-08-2023 End: 11-08-2023 ambulatory Sara Blake Other [email or web address] Other Start: 11-08-2023 Telephone encounter Sara Hayden [facility] Start: 10-27-2023 End: 10-27-2023 ambulatory Sara Blake Other [email or web address] Other Start: 10-27-2023 Office outpatient vi sit 15 minutes Sara Hayden [facility] Start: 08-15-2023 End: 08-15-2023 ambulatory Sara Blake Other [email or web address] Other Start: 08-15-2023 Telephone encounter Sara Hayden [facility] Start: 08-11-2023 End: 08-11-2023 Departed Referred MD Sara Blake Work Phone: [facility] [place] Work Phone: Start: 08-11-2023 End: 08-11-2023 ambulatory Sara Blake [facility] Work Phone: Start: 08-11-2023 Office outpatient vi sit 25 minutes Sara Hayden [facility] Start: 07-05-2023 ambulatory SARA BLAKE [facility] Start: 07-05-2023 End: 07-05-2023 Office outpatient new 30 minutes Kahlil Wakefield PA-C Work Phone: [facility] Comment on above: De Quervain's diseas e (tenosynovitis) (Primary Dx); Arthritis of carpometacarpal (CMC) joint of left thumb; Arthritis of wrist, left Start: 05-17-2023 ambulatory SARA HAYDEN Damián [facility] Start: 04-29-2023 End: 04-29-2023 ambulatory Sara Blake Other [email or web address] Other Start: 04-29-2023 Telephone encounter Sara Hayden [facility] Start: 04-07-2023 ambulatory SARA BLAKE [facility] Start: 02-09-2023 End: 02-09-2023 ambulatory Sara Blake Other [email or web address] Other Start: 02-09-2023 Telephone encounter Sara Blake [facility] Start: 01-28-2023 End: 01-29-2023 ambulatory MARIA INES JAZMINE Facility:H1 Start: 01-24-2023 End: 01-24-2023 ambulatory Sara Blake Other [email or web address] Other Start: 01-24-2023 Telephone encounter Sara Blake [facility] Start: 12-28-2022 Office outpatient vi sit 25 minutes Sara Blake Work Phone: [facility] 250 DO Work Phone: Start: 12-28-2022 ambulatory Ismael Lawson Facilit y: Start: 11-17-2022 Transcribe Orders Sara jiménez MD Work Phone: [facility] Comment on above: Unilateral weakness (Primary Dx) Start: 11-15-2022 End: 11-15-2022 ambulatory Sara Blake Other [email or web address] Other Start: 11-15-2022 Transitional care thee webster srvc 14 day discharge Sara Blake [facility] Start: 11-08-2022 End: 11-08-2022 ambulatory Sara Blake Other [email or web address] Other Start: 11-08-2022 Telephone encounter Sara Blake [facility] Start: 11-03-2022 End: 11-03-2022 ambulatory DEON PEÑA [facility] Start: 11-03-2022 Telephone encounter Sara Blake [facility] Start: 11-02-2022 End: 11-02-2022 ambulatory DEON PEÑA [facility] Start: 10-25-2022 End: 10-28-2022 ambulatory SARA BLAKE Facility: Start: 06-15-2022 Chart Update Sara Blake Work Phone: [facility] 250 DO Work Phone: Start: 06-07-2022 Patient encounter procedure Sara Blake Work Phone: [facility] [address] [place] Work Phone: Start: 06-02-2022 End: 06-03-2022 ambulatory SARA BLAKE Facility:[facility]1 Start: 05-21-2022 End: 05-22-2022 ambulatory MARIA INESAGNES DA SILVAJAZMINE Facility:H1 Start: 05-19-2022 ambulatory Ismael Renny Facilit y:[id number] Start: 05-19-2022 Transitional care thee webster srvc 7 day discharge Sara Blake Work Phone: [facility] 250 DO Work Phone: Start: 05-07-[address] Sara Blake Facility:[id number] Start: 05-07-2022 AUDIT Sara Blake Work Phone: [facility] 250 DO Work Phone: Start: 05-07-2022 Message Sara Blake Work Phone: [facility] 250 DO Work Phone: Start: 05-07-2022 End: 05-07-2022 ambulatory SARA BLAKE Facility:H1 Start: 05-07-2022 ambulatory Ismael Hairstondon Facilit y:[id number] Start: 04-29-2022 End: 04-30-2022 ambulatory SARA BLAKE Facility:H1 Start: 04-14-2022 End: 04-15-[address] KENZIE MARTINEZ Facility:H1 Start: 03-04-2022 ambulatory SARA BLAKE Facility :H1 Start: 02-01-2019 End: 02-02-2019 Patient encounter procedure DEFAULT PHYSICIAN Facility:[facility] Procedures Date Procedure Procedure Detail Performing Clinician Start: 03-13-2024 Lactoferrin measurement MD Aravind Jackson Jr Work Phone: Start: 03-10-2024 Urine culture MD Aravind Jackson Jr Work Phone: Start: 03-09-2024 CL [facility] COR Angio MD Evin Jackson Jr Work Phone: Start: 03-09-2024 Plain chest X-ray MD Cat Jackson Jr Work Phone: Start: 07-05-2023 Injection 1 tendon sheath/ligament aponeurosis Alissa Salina [place] Start: 06-07-2022 Echocardiography Sara Blake Work Phone: Start: 10-24-2009 Total colonoscopy Stephanie Blake Work Phone: Appendectomy Sara Blake Work Phone: Cardiac catheterization Flaco Blake Work Phone: Extraction of wisdom tooth M noah Blake Work Phone: Hernia repair Sara Blake Work Phone: Hysterectomy Sara Blake Work Phone: Tonsillectomy Sara Blake Work Phone: Plan of Treatment Date Care Activity Detail Author Start: 12-25-2024 End: 12-25-2024 Patient encounter procedure 12/25/2024 1:20 PM EST Office Visit [facility] [address] [place] [address] Ismael Lawson DO [address] [facility] [address] [place] [address] [facility] Start: 06-24-2024 Influenza vaccination Influenz a Vaccine (Season Ended) [facility] Start: 03-21-2024 End: 03-21-2026 US Heart Transthoracic Transthoracic Echo Limited Echocardiography Routine Takotsubo syndrome Expected: 03/21/2024 (Approximate), Expires: 03/21/2026 [facility] Service Area Work Phone: Comment on above: Expected: 03/21/2024 (Approximate), Expires: 03/21/2026 Start: 03-14-2024 [facility] Start: 03-13-2024 End: 03-13-2024 [facility] Start: 03-12-2024 [facility] Start: 03-11-2024 [facility] Start: 03-10-2024 End: 03-10-2024 [facility] Start: 03-09-2024 End: 03-09-2024 [facility] Start: 03-09-2024 Consultation [facility] Start: 03-09-2024 Hospital admission [facility] Start: 03-09-2024 Referral to cardiac rehabilitation program [facility] Start: 03-09-2024 Fluoroscopy of Left Heart using Low Osmolar Contrast Fluoroscopy of Left Heart using Low Osmolar Contrast [facility] Start: 03-09-2024 Fluoroscopy of Multi ple Coronary Arteries using Low Osmolar Contrast Fluoroscopy of Multiple Coronary Arteries using Low Osmolar Contrast [facility] Start: 03-09-2024 Measurement of Cardi ac Sampling and Pressure, Left Heart, Percutaneous Approach Measurement of Cardiac Sampling and Pressure, Left Heart, Percutaneous Approach [facility] Start: 03-09-2024 [facility] Start: 01-11-2024 FUV, Provider: Ismael Lawson, Status: Pen, Time: 11:20 AM FUV, Provider: Ismael Lawson, Status: Pen, Time: 11:20 AM [facility] 250 DO Work Phone: Start: 09-08-2023 End: 09-08-2023 Patient encounter procedure 09/08/2023 1:10 PM EST Office Visit [facility] [address] [place] [address] Kahlil Wakefield PARose [address] [place] [address] [facility] Start: 08-11-2023 Bacteria identified in Urine by Culture [facility] Start: 06-24-2023 COVID-19 Vaccine ( season) COVID-[address] () [facility] Start: 06-24-2023 Influenza vaccination INFLUENZA VACC INE (#1) [facility] Start: 12-01-2022 FUV, Provider: Ismael Lawson, Status: Pen, Time: 10:50 AM FUV, Provider: Ismael Lawson, Status: Pen, Time: 10:50 AM [facility] [facility] 250 DO Work Phone: Start: 11-25-2022 End: 11-25-2022 Patient encounter procedure 11/25/2022 Appointment Radiology Deon Peña Jr., MD [address] [place] [address] [facility] MRI Start: 06-24-2022 Influenza vaccination Sequenti al Influenza Vaccine (#1) [facility] Start: 06-07-2022 ECHO, Provider: SAIRA [facility] ULTRASOUND 01,[id number], Status: Pen, Time: 10:45 AM ECHO, Provider: SAIRA [facility] ULTRASOUND 01,[id number], Status: Pen, Time: 10:45 AM [facility] 250 DO Work Phone: Start: 05-19-2022 FUVHOSP, Provider: Ismael Lawson, Status: Pen, Time: 11:40 AM FUVHOSP, Provider: Ismael Lawson, Status: Pen, Time: 11:40 AM [facility] 250 DO Work Phone: Start: 11-23-2021 COVID-19 VACCINE (3 - Booster for Joaquim series) COVID-19 VACCINE (3 - Booster for Joaquim series) [facility] Start: 2002 Fall risk assessment Falls Risk Asse ssment [facility] Start: 2002 Pneumococcal vaccination PNEUMOCOCCAL VACCINE SERIES (1 - PCV) [facility] Start: 2002 Pneumococcal Vaccine : Age 65+ (1 - PCV) Pneumococcal Vaccine: Age 65+ (1 - PCV) [facility] Start: 1997 RSV patient s and/or patients aged 60+ years (1 - 1-dose 60+ series) RSV patients and/or patients aged 60+ years (1 - 1-dose 60+ series) [facility] Start: 1987 Administration of herpes zoster vaccine Zoster Vaccines (1 of 2) [facility] Start: 1987 Zoster vaccine hzv l natalya for subcutaneous use ZOSTER (SHINGLES) VACCINE (1 of 2) [facility] Start: 1987 Zoster Vaccines (1 o f 2) Zoster Vaccines (1 of 2) [facility] Start: 1982 Screening for malign ant neoplasm of colon COLORECTAL CANCER SCREENING DISCUSSION [facility] Start: 1977 Screening for malign ant neoplasm of breast MAMMOGRAM SCREENING DISCUSSION [facility] Start: 1959 DTaP/Tdap/Td Vaccine s (1 - Tdap) DTaP/Tdap/Td Vaccines (1 - Tdap) [facility] Start: 1958 Screening for malign ant neoplasm of cervix CERVICAL CANCER SCREENING DISCUSSION [facility] Start: 1956 Third diphtheria, tetanus and acellular pertussis (DTaP) vaccination TDAP (ADULT) [facility] Start: 1955 Diabetes mellitus screening Diabetes Screening [facility] Start: 1949 Depression screening using PHQ-9 (Patient Health Questionnaire 9) score Depression Screening (PHQ-2/9) [facility] Start: 1943 Pneumococcal Vaccine : 65+ Years (1 of 2 - PCV) Pneumococcal Vaccine: 65+ Years (1 of 2 - PCV) [facility] Start: 1940 History and physical examination, annual for health maintenance Wellness Visit [facility] Start: 02-15-1938 COVID-19 Vaccine (#1) COVID-19 Vacci ne (#1) [facility] Start: 1937 Lipid panel Lipid Panel [facility] Start: 1937 Medicare Annual Wellness Visit Medicare Annual Wellness Visit (AWV) [facility] Start: 1937 Screening for osteoporosis [facility] Start: 1937 Tetanus vaccination [facility] Bacteria identified in Urine by Culture [facility] Comprehensive metabo lic 2000 panel - Serum or Plasma [facility] Patient Education Cardiomyopathy (DC) Know your Meds [facility] Work Phone: Patient referral [facility] Work Phone: [facility] Immunizations Immunization Date Immunization Notes Care Provider Fa cilimanuel 10-08-2021 Moderna COVID-19 Vac cine 100 MCG/0.5ML Intramuscular Suspension Sara Blake Work Phone: [facility] [place] [facility] DO Work Phone: 09-28-2021 Pfizer-BioNTech COVI D-19 Vacc 30 MCG/0.3ML Intramuscular Suspension Sara Blake Work Phone: [facility] 12-31-2020 Joaquim COVID-19 Vac cine 0.5 ML Intramuscular Suspension Sara Blake Work Phone: [facility] Payers Date Payer Category Payer Medicare [id number] 2017 Medicare [id number] 1959 Medicare [id number] 1959 Self-pay 1937 Unknown [id number] 2.16.8 [id number] 1937 Unknown [id number] 2.16. 840.1.051472.3.579.2.903 1937 Unknown [id number] 2.16. 840.1.152123.3.579.2.356 1937 Unknown [id number] 2.16. 840.1.378115.3.579.2.356 1937 Unknown [id number] 2.16. 840.1.868829.3.579.2.356 1937 Unknown [id number] 2.16. 840.1.913120.3.579.2.356 1937 Unknown [id number] 2.16.84 0.1.489025.3.579.2.593 1937 Unknown [id number] 2.16.84 0.1.592629.3.579.2.593 1937 Unknown [id number] 2.16.84 0.1.520470.3.579.2.593 1937 Unknown [id number] 2.16.84 0.1.120678.3.579.2.593 1937 Unknown [id number] 2.16.84 0.1.384428.3.579.2.593 1937 Unknown [id number] 2.16.84 0.1.679958.3.579.2.593 1937 Unknown [id number] 2.16.84 0.1.187118.3.579.2.593 1937 Unknown [id number] 2.16.84 0.1.664856.3.579.2.593 1937 Unknown [id number] 2.16.8 40.1.024021.3.579.2.983 1937 Unknown [id number] 2.16.8 40.1.660574.3.579.2.983 1937 Unknown [id number] 2.16.8 40.1.360830.3.579.2.983 1937 Unknown [id number] 2.16.8 40.1.765538.3.579.2.983 1937 Unknown [id number] 2.16.8 40.1.570806.3.579.2.1244 Unknown Unknown [id number] 2.16.8 40.1.035110.3.579.2.531 Unknown [id number] 2.16.8 40.1.248710.3.579.2.531 Unknown [id number] 2.16.8 40.1.881974.3.579.2.531 Social History Date Type Detail Facility Start: 07-05-2023 End: 03-21-2024 [facility] Work Phone: Comment on above: iced coffee occasion ally, a little soda daily; Tobacco smoking status AKIS Tobacco smoking consumption unknown [facility] Start: 1935 Sex Assigned At Not on file [facility] Start: 07-05-2023 End: 03-21-2024 Sex Assigned At [email or web address] Other Start: 04-07-2023 End: 03-10-2024 Tobacco smoking status NHIS Never smoked tobacco [facility] Start: 04-07-2023 End: 03-21-2024 Tobacco use and exposure Smokeless tobacco non-user [facility] Start: 07-05-2023 End: 03-21-2024 Alcohol intake Lifetime non-drinker (finding) [facility] Start: 1935 Sex Assigned At Female [facility] Start: 03-11-2024 End: 03-21-2024 Exposure to SARS-CoV-2 (event) Not sure [facility] Goals Date Patient Goal Desired Activity /State Functional Status Date Assessment Result Facility 03-14-2024 Functional status Patient at Baseline [facility] Work Phone: 03-09-2024 Functional status Patient Not at Baseline [facility] Work Phone: Mental Status Date Assessment Result Facility 03-14-2024 Cognitive function Cognitive Sta tus Patient at Baseline [facility] Work Phone: 03-09-2024 Cognitive function Cognitive Sta tus Patient at Baseline [facility] Work Phone: Clinical Notes 11-15-2022 to 03-22-2024 Assessment & Plan Note - SHELLY Nassar - 03/22/2024 1:10 PM EDTAssessment & Plan Note - SHELLY [place] - 03/22/2024 1:10 PM EDTPatient Instructions Note Date & Type Note Facility 03-22-2024 Evaluation + Plan note Associated Problem(s): Takotsubo syndrome April 2022 presented with Takotsubo CM (at time of husbands ) with normalized EF 65% May 2022. Was on coreg and cozaar. March 09, 2024 presented [facility] Cardiac cath: LVEF 35% with classic apical ballooning. Dias1 50% o/w no significant disease TTE: EF 15-20% with apical ballooning Unable to tolerate GDMT due to hypotension She has neurocognitive decline and unable to identify any inciting event. The daughter does report that she saw her earlier that day and she has had increased anxiety over the last number of weeks. Appears euvolemic on exam today. [facility] Work Phone: 03-22-2024 Miscellaneous Notes Associated Problem(s): Takotsubo syndrome April 2022 presented with Takotsubo CM (at time of husbands ) with normalized EF 65% May 2022. Was on coreg and cozaar. March 09, 2024 presented to [facility] Cardiac cath: LVEF 35% with classic apical ballooning. Dias1 50% o/w no significant disease TTE: EF 15-20% with apical ballooning Unable to tolerate GDMT due to hypotension She has neurocognitive decline and unable to identify any inciting event. The daughter does report that she saw her earlier that day and she has had increased anxiety over the last number of weeks. Appears euvolemic on exam today. documented in this encounter [facility] Work Phone: 03-21-2024 History of Presen t illness Narrative Chief Complaint 'she seems to be getting her strength back' Reason for Visit Patient presents to the office today for outpatient follow-up for hospital follow-up. Last evaluated in clinic by Dr. Lawson December 2022. February 2024: Patient was recently hospitalized at [facility]. The patient was seen in Cardiology consult with subsequent cardiovascular management by [facility]. Hospitalization records have been reviewed. Reason for Cardiology Consultation: Chest pain, EKG changes. Consulting Wholesale Representative: Dr. Lawson Cardiovascular testing: Cardiac catheterization and echocardiogram consistent with Takotsubo cardiomyopathy Changes to cardiovascular medical regimen at time of discharge: Due to hypotension her Coreg and Cozaar had to be discontinued Discharge disposition: Back to assisted living Presents today in wheelchair for ease of transport, reportedly is ambulatory to the dining marcano at the nursing facility. Accompanied by child History of Present Illness Patient is an extremely pleasant 88-year-old female who presents to the office today in no acute distress, due to neurocognitive decline is unable to provide any meaningful history. Her daughter was present. Since discharge the daughter feels that she is starting to get her strength back . Her right groin cath site is nontender. She lives in a skilled facility and is ambulatory to the dining marcano. She sleeps in the bed at nighttime. Blood pressure in the office systolic 110s. Prior to hospitalization she was on Cozaar and carvedilol. The daughter reports that on treatment over the last couple months she has been having a lot of dizziness, lightheadedness. Has remained off of treatment since discharge. Discussed with daughter optimal medical treatment, Takotsubo cardiomyopathy. Prior history with normalization of LVEF. At this time, she seems reluctant to be aggressive with additional medications. Will repeat a limited echo 6 weeks after inciting event to see if normalization of LVEF. Review of Systems Unable to perform ROS: Dementia Cardiovascular: Negative for chest pain, dyspnea on exertion, irregular heartbeat, leg swelling, near-syncope, orthopnea, palpitations, paroxysmal nocturnal dyspnea and syncope. Visit Vitals BP 110/70 (BP Location: Left arm, Patient Position: Sitting) Pulse 68 Ht 1.549 m (5' 1 ) Wt 57.3 kg (126 lb 6.4 oz) BMI 23.88 kg/m Smoking Status Never BSA 1.57 m Physical Exam Vitals and nursing note reviewed. Constitutional: Appearance: She is normal weight. HENT: Head: Normocephalic. Cardiovascular: Rate and Rhythm: Normal rate and regular rhythm. Heart sounds: Normal heart sounds. Pulmonary: Effort: Pulmonary effort is normal. Breath sounds: Normal breath sounds. Abdominal: Palpations: Abdomen is soft. Musculoskeletal: Right lower leg: No edema. Left lower leg: No edema. Skin: General: Skin is warm and dry. Neurological: General: No focal deficit present. Mental Status: She is alert. Mental status is at baseline. Psychiatric: Mood and Affect: Mood normal. Behavior: Behavior normal. Allergies Allergen Reactions Sulfa (Sulfonamide Antibiotics) Nausea Only Current Outpatient Medications Medication Instructions ALPRAZolam (XANAX) 0.25 mg, oral, Nightly PRN aspirin 81 mg, oral, Daily citalopram (CELEXA) 10 mg, oral, Daily hydrOXYzine HCL (ATARAX) 25 mg, oral, 3 times daily magnesium oxide (MAG-OX) 400 mg, oral, 2 times daily memantine (NAMENDA) 10 mg, oral, 2 times daily nitroglycerin (NITROSTAT) 0.4 mg, sublingual, Every 5 min PRN SUMAtriptan (IMITREX) 100 mg, oral, Every 24 hours PRN Assessment: Takotsubo syndrome April 2022 presented with Takotsubo CM (at time of husbands ) with normalized EF 65% May 2022. Was on coreg and cozaar. March 09, 2024 presented [place] [facility] [place]iac cath: LVEF 35% with classic apical ballooning. Dias1 50% o/w no significant disease TTE: EF 15-20% with apical ballooning Unable to tolerate GDMT due to hypotension She has neurocognitive decline and unable to identify any inciting event. The daughter does report that she saw her earlier that day and she has had increased anxiety over the last number of weeks. Appears euvolemic on exam today. Plan: Through informed decision making process incorporating patients unique circumstances, the following treatment plan will be initiated: 1. Prescription drug management of cardiovascular medication for efficacy, adherence to treatment, side effect assessment and polypharmacy. Current treatment clinically warranted and to continue without modifications. 2. Limited echo (takotsubo cardiomyopathy) 3. Return for follow-up; in the interim, contact the office if new symptoms arise. Dr. Lawson 9 months Esteban Pineda MSN, CLINICAL RESOURCE COORDINATOR-LINE PALLETIZER, PMHNP-[facility] Please excuse any errors in grammar or translation related to this dictation. Voice recognition software was utilized to prepare this document. documented in this encounter [facility] Work Phone: 03-21-2024 Instructions SHELLY Nassar - 03/21/2024 11:00 AM EDT Please bring all medicines, vitamins, and herbal supplements with you when you come to the office. Prescriptions will not be filled unless you are compliant with your follow up appointments or have a follow up appointment scheduled as per instruction of your physician. Refills should be requested at the time of your visit. PLAN: Through informed decision making process incorporating patients unique circumstances, the following treatment plan will be initiated: 1. Prescription drug management of cardiovascular medication for efficacy, adherence to treatment, side effect assessment and polypharmacy. Current treatment clinically warranted and to continue without modifications. 2. Limited echo (takotsubo cardiomyopathy) 3. Return for follow-up; in the interim, contact the office if new symptoms arise. Dr. Lawson 9 months documented in this encounter [facility] Work Phone: 03-14-2024 Progress note Note Date/Time March 14, 2024 8:41a m [facility] [address] [place] [address] Pulmonology Progress Note Signed Patient: Milind Tate MR#: [id number] : 1935 Acct:[id number] Age/Sex: 88 / F Adm Date: 4 Loc: Room: [address] [place] [address] Type: DIS IN Attending Dr: Everett Lawson DO Copies to: ~ Date of Service: 03/14/2024 Subjective Subjective Narrative: Patient tolerated ampicillin for UTI without reported difficulty. She did have some diarrhea which she had been having even before initiation of antibiotics. Exam Physical Exam Vital Signs: Temp Pulse Resp BP Pulse Ox O2 Del Method O2 Flow Rate 97.4 F L 73 14 107/62 94 L Room Air 1 03/13/24 20:00 03/13/24 20:00 03/13/24 20:00 03/13/24 20:00 03/13/24 20:00 03/13/24 23:54 03/12/24 03:00 Const General: cooperative Orientation: alert and awake HEENT Head: normal to inspection Ears: hearing grossly normal bilaterally and external ears normal Nose: external nose normal Face and sinus: normal facial exam Mouth: oral mucosae normal Eyes Sclera: sclerae normal Neck Neck: normal visual inspection Resp Effort & Inspection: normal respiratory effort Auscultation: clear to auscultation bilaterally, diminished lung sounds, no rales, no rhonchi and no wheezes Cardio Rate: regular rate Rhythm: regular rhythm Heart Sounds: S1 normal, S2 normal and no murmurs GI Inspection: normal to inspection Palpation: soft and nontender General: deferred Skin General: no rashes or lesions noted (Warm and dry) Extrem General: no pedal edema Objective Intake and Output I&O - Last 24 Hours: Intake & Output 03/13/24 03/14/24 03/14/24 23:59 07:59 15:59 Intake Total 342 / 582 0 / 0 Balance 342 / 582 0 / 0 Weight 127 lb 10.362 oz Labs 03/09/24 21:00 03/14/24 07:17 Microbiology Micro: Microbiology 3 03/10/24 22:42 Urine Culture - Final Clean Void Midstream Escherichia coli Escherichia coli#2 03/13/24 08:45 Stool Lactoferrin - Final Stool Assessment/Plan Assessment/Plan (1) Acute coronary syndrome: (2) Takotsubo cardiomyopathy: (3) Advancing dementia: (4) Anxiety: (5) Hypertension: Plan Hospital day #5 for patient with remote history of E. coli UTI x2 2 from clean-catch urine with patient tolerating amoxicilliin with multiple allergies and adverse reactions listed with patient having dementia with unreliable history from patient. Patient was given written prescription for amoxicillin with plan for a total of 5 days of treatment. Patient does not have Ashby catheter. Patient is stable for discharge from a pulmonary/critical care medicine perspective. Documented By: Kartik Vilchis MD 4 [id number] Signed By: <Electronically signed by MD Kartik Vilchis> 03/14/24 181 [facility] Work Phone: 1(211) 712-600005-21-2024 Progress note Author Kartik Vilchis [facility] March 13, 2024 1:21pm Note Date/Time March 13, 2024 1:20p m [facility] [address] [place] [address] Pulmonology Progress Note Signed Patient: Milind Tate MR#: [id number] : 1935 Acct:[id number] Age/Sex: 88 / F Adm Date: 4 Loc: Room: [address] [place] [address] Type: ADM IN Attending Dr: Everett Lawson DO Copies to: ~ Date of Service: 03/13/2024 Subjective Subjective Narrative: Patient is sleeping at the time of my evaluation. There were no issues per nursing staff overnight. Note 2 different species of E. coli 1 of which with over 100,000 CFU's from urine. Exam Physical Exam Vital Signs: Temp Pulse Resp BP Pulse Ox O2 Del Method O2 Flow Rate 97.8 F 68 18 133/71 95 Room Air 1 03/13/24 08:00 03/13/24 08:00 03/13/24 08:00 03/13/24 08:00 03/13/24 08:00 03/13/24 08:00 03/12/24 03:00 HEENT Head: normal to inspection Ears: hearing grossly normal bilaterally and external ears normal Nose: external nose normal Face and sinus: normal facial exam Mouth: oral mucosae normal Eyes Sclera: sclerae normal Neck Neck: normal visual inspection Resp Effort & Inspection: normal respiratory effort Auscultation: clear to auscultation bilaterally, diminished lung sounds, no rales, no rhonchi and no wheezes Cardio Rate: regular rate Rhythm: regular rhythm Heart Sounds: S1 normal, S2 normal and no murmurs GI Inspection: normal to inspection Palpation: soft and nontender General: deferred Skin General: no rashes or lesions noted (Warm and dry) Extrem General: no pedal edema Objective Intake and Output I&O - Last 24 Hours: Intake & Output 03/12/24 03/13/24 03/13/24 23:59 07:59 15:59 Intake Total 180 / 540 120 / 120 Output Total 300 / 300 Balance -120 / 240 120 / 120 Weight 129 lb 3.054 oz Labs 03/09/24 21:00 03/13/24 04:46 Microbiology Micro: Microbiology 3 03/10/24 22:42 Urine Culture - Final Clean Void Midstream Escherichia coli Escherichia coli#2 03/13/24 08:45 Stool Lactoferrin - Final Stool Assessment/Plan Assessment/Plan (1) Acute coronary syndrome: (2) Takotsubo cardiomyopathy: (3) Advancing dementia: (4) Anxiety: (5) Hypertension: Plan Hospital day #4 for patient with remote history of E. coli UTI with gram- negative bacilli x 2 from clean-catch urine. Culture results are pending with patient having multiple allergies including cephalosporins, fluoroquinolones, Bactrim, and nitrofurantoin. Patient's primary concern is recurrent Takotsubo'scardiomyopathy. Case was discussed with [facility] in regards to urinary tract infection. I do not believe that the patient is a appropriate historian to be able to tell me if she is symptomatic from her UTI. The other concern is her multiple drug allergies. After discussion with pharmacy patient was given a course of amoxicillin and will plan to give her 5 days of therapy and observe asshe awaits placement. Otherwise, I have no new recommendations. Documented By: Kartik Vilchis MD 4 [id number] Signed By: <Electronically signed by MD Kartik Vilchis> 03/13/24 0730 [facility] Work Phone: 1(749) 212-848405-21-2024 Progress note Author Everett Lawson [facility] March 13, 2024 11:47am Note Date/Time March 13, 2024 11:47 am [facility] [address] [place] [address] Cardiology Progress Note Signed Patient: Milind Tate MR#: [id number] : 1935 Acct:[id number] Age/Sex: 88 / F Adm Date: 4 Loc: Room: 8L9328-4 Type: ADM IN Attending Dr: Everett Lawson DO Copies to: ~ Date of Service: 03/13/2024 Subjective Principal diagnosis: Takotsubo CMP Interval history: No complaints. She wants to go home. She has been borderline hypotensive but stable at that blood pressure and has no symptoms of lightheadedness, dizziness or syncope. However she has not been up out of bed without support and she wouldbe going back home to an assisted living facility with no direct assistance. Therefore will get physical therapy to evaluate her and provide us with discharge disposition recommendations. Interim evaluation 03/12/2024: Stable from a cardiovascular standpoint with soft blood pressures, GDMT unable to be advanced due to soft blood pressures. Patient appears mildly demented and depressed, wants to go home. QT interval prolonged at over 500 ms. Will initiate magnesium oxide 400 twice daily proactively. Interim evaluation 03/13/2024: Stable from a cardiovascular standpoint without arrhythmia, heart failure. Patient be discharged back to home with daughter or ECF from cardiology standpoint Exam Physical Exam Vital Signs: Temp Pulse Resp BP Pulse Ox O2 Del Method O2 Flow Rate 97.8 F 68 18 133/71 95 Room Air 1 03/13/24 08:00 03/13/24 08:00 03/13/24 08:00 03/13/24 08:00 03/13/24 08:00 03/13/24 08:00 03/12/24 03:00 Const General: cooperative and in distress mild Nutritional Appearance: thin Orientation: alert, awake and oriented x3 HEENT Head: normal to inspection Neck Neck: normal visual inspection Chest Chest palpation & inspection: normal inspection of the chest Resp Effort & Inspection: normal respiratory effort Auscultation: clear to auscultation bilaterally Cardio Rate: regular rate Rhythm: regular rhythm Heart Sounds: S1 normal and S2 normal Pulses: radial pulses present and femoral pulses present GI Palpation: soft Skin General: no rashes or lesions noted Neuro General: patient alert, patient awake and patient oriented x3 Cognition: abnormal cognition Speech: speech normal Extrem General: no clubbing, cyanosis or edema Psych Mood: anxious mood Objective Labs 03/09/24 21:00 03/13/24 04:46 Labs: Laboratory Results - last 24 hr 03/13/24 04:46 PHA Creatinine Clear 28.75 Sodium 141 Potassium 3.7 Chloride 106 Carbon Dioxide 25.4 Anion Gap 13.3 BUN 25 Creatinine 1.06 Est GFR (CKD-EPI) 51.160 Glucose 91 Calcium 8.5 L A&P - Cardiology (1) Advancing dementia: Code(s): F03.90 - Unspecified dementia, unspecified severity, without behavioral disturbance, psychotic disturbance, mood disturbance, and anxiety (2) Takotsubo cardiomyopathy: Assessment/Problem Details: Patient presents with recurrent Takotsubo cardiomyopathy Code(s): I51.81 - Takotsubo syndrome (3) Acute coronary syndrome: Code(s): I24.9 - Acute ischemic heart disease, unspecified Plan Cleared by cardiology for discharge Documented By: Everett Lawson DO 03/13/24 1145 Signed By: <Electronically signed by Everett Lawson DO> 03/13/24 5781 [facility] Work Phone: 1(271) 644-973505-20-2024 Progress note Author Kartik Vilchis [facility] March 12, 2024 11:50am Note Date/Time March 12, 2024 11:50 am [facility] [address] [place] [address] Pulmonology Progress Note Signed Patient: Milind Tate MR#: [id number] : 1935 Acct:[id number] Age/Sex: 88 / F Adm Date: 4 Loc: Room: [address] [place] [address] Type: ADM IN Attending Dr: Everett Lawson DO Copies to: ~ Date of Service: 03/12/2024 Subjective Subjective Narrative: Patient has no complaints of chest pain or dyspnea. She knows she is at [facility] but is unaware of the city nor year. Exam Physical Exam Vital Signs: Temp Pulse Resp BP Pulse Ox O2 Del Method O2 Flow Rate 98.1 F 67 16 102/58 L 96 Room Air 1 03/12/24 11:42 03/12/24 11:42 03/12/24 11:42 03/12/24 11:42 03/12/24 11:42 03/12/24 11:42 03/12/24 03:00 Const General: cooperative Orientation: alert and awake HEENT Head: normal to inspection Ears: hearing grossly normal bilaterally and external ears normal Nose: external nose normal Face and sinus: normal facial exam Mouth: oral mucosae normal Eyes Sclera: sclerae normal Neck Neck: normal visual inspection Resp Effort & Inspection: normal respiratory effort Auscultation: clear to auscultation bilaterally, diminished lung sounds, no rales, no rhonchi and no wheezes Cardio Rate: regular rate Rhythm: regular rhythm Heart Sounds: S1 normal, S2 normal and no murmurs GI Inspection: normal to inspection Palpation: soft and nontender General: deferred Skin General: no rashes or lesions noted (Warm and dry) Extrem General: no pedal edema Objective Intake and Output I&O - Last 24 Hours: Intake & Output 03/11/24 03/12/24 03/12/24 23:59 07:59 15:59 Intake Total 222 / 662 0 / 0 Output Total 0 / 1 Balance 222 / 661 0 / 0 Weight 125 lb 7.088 oz Labs 03/09/24 21:00 05/20/24 04:48 Microbiology Micro: Microbiology 3 03/10/24 22:42 Urine Culture - Preliminary Clean Void Midstream Gram Negative Bacilli Gram Negative Bacilli#2 Assessment/Plan Assessment/Plan (1) Acute coronary syndrome: (2) Takotsubo cardiomyopathy: (3) Advancing dementia: (4) Anxiety: (5) Hypertension: Plan Hospital day #3 for patient with remote history of E. coli UTI with gram- negative bacilli x 2 from clean-catch urine. Culture results are pending with patient having multiple allergies including cephalosporins, fluoroquinolones, Bactrim, and nitrofurantoin. Patient's primary concern is recurrent Takotsubo'scardiomyopathy. She is stable from a respiratory perspective. I have little torecommend. We will follow remotely while in the ICU. We will follow-up on urine culture results. Documented By: Kartik Vilchis MD 4 1146 Signed By: <Electronically signed by MD Kartik Vilchis> 03/12/24 6267 [facility] Work Phone: 1(441) 821-449305-20-2024 Progress note Author Everett Lawson [facility] March 12, 2024 11:09am Note Date/Time March 12, 2024 11:09 am [facility] [address] [place] [address] Cardiology Progress Note Signed Patient: Milind Tate MR#: [id number] : 1935 Acct:[id number] Age/Sex: 88 / F Adm Date: 4 Loc: Room: [address] [place] [address] Type: ADM IN Attending Dr: Everett Lawson DO Copies to: ~ Date of Service: 03/12/2024 Subjective Principal diagnosis: Takotsubo CMP Interval history: No complaints. She wants to go home. She has been borderline hypotensive but stable at that blood pressure and has no symptoms of lightheadedness, dizziness or syncope. However she has not been up out of bed without support and she wouldbe going back home to an assisted living facility with no direct assistance. Therefore will get physical therapy to evaluate her and provide us with discharge disposition recommendations. Interim evaluation 03/12/2024: Stable from a cardiovascular standpoint with soft blood pressures, GDMT unable to be advanced due to soft blood pressures. Patient appears mildly demented and depressed, wants to go home. QT interval prolonged at over 500 ms. Will initiate magnesium oxide 400 twice daily proactively. Exam Physical Exam Vital Signs: Temp Pulse Resp BP Pulse Ox O2 Del Method O2 Flow Rate 98.1 F 65 16 106/57 L 95 Room Air 1 03/12/24 08:00 03/12/24 09:00 03/12/24 09:00 03/12/24 09:00 03/12/24 09:00 03/12/24 09:00 03/12/24 03:00 Const General: cooperative and in distress mild Nutritional Appearance: thin Orientation: alert, awake and oriented x3 HEENT Head: normal to inspection Neck Neck: normal visual inspection Chest Chest palpation & inspection: normal inspection of the chest Resp Effort & Inspection: normal respiratory effort Auscultation: clear to auscultation bilaterally Cardio Rate: regular rate Rhythm: regular rhythm Heart Sounds: S1 normal and S2 normal Pulses: radial pulses present and femoral pulses present GI Palpation: soft Skin General: no rashes or lesions noted Neuro General: patient alert, patient awake and patient oriented x3 Cognition: abnormal cognition Speech: speech normal Extrem General: no clubbing, cyanosis or edema Psych Mood: anxious mood Objective Labs 03/09/24 21:00 03/12/24 04:48 Labs: Laboratory Results - last 24 hr 03/12/24 04:48 PHA Creatinine Clear 27.70 Sodium 137 Potassium 3.8 Chloride 106 Carbon Dioxide 25.4 Anion Gap 9.4 BUN 29 H Creatinine 1.10 Est GFR (CKD-EPI) 48.936 Glucose 86 Calcium 8.6 A&P - Cardiology (1) Advancing dementia: Code(s): F03.90 - Unspecified dementia, unspecified severity, without behavioral disturbance, psychotic disturbance, mood disturbance, and anxiety (2) Takotsubo cardiomyopathy: Assessment/Problem Details: Patient presents with recurrent Takotsubo cardiomyopathy Code(s): I51.81 - Takotsubo syndrome (3) Acute coronary syndrome: Code(s): I24.9 - Acute ischemic heart disease, unspecified Plan She has severe cardiomyopathy 15-20% with borderline blood pressures and will not be able to tolerate GDMT medications. These may be introduced as outpatient if her blood pressure returns to normal. I have spoken to her primary assistant program manager this morning, Dr. Lawson, who agrees with the plan above. Monitor today. Ambulate ad porsha. Will get physical therapy to evaluate for discharge recommendations. See subjective above. Discharge when possible per physical therapy/Occupational Therapy or acceptance to rehab Documented By: Everett Lawson DO 03/12/241106 Signed By: <Electronically signed by Everett Lawson, > 03/12/24 1108 [facility] Work Phone: [phone]) [phone] Progress note Author Aj Smith [facility] March 11, 2024 7:55pm Note Date/Time March 11, 2024 9:22a m [facility] [address] [place] [address] Cardiology Progress Note Signed with Addenda Patient: Milind Tate MR#: [id number] : 1935 Acct:[id number] Age/Sex: 88 / F Adm Date: 4 Loc: Room: [address] [place] [address] Type: ADM IN Attending Dr: Everett Lawson DO Copies to: ~ ADDENDUM1 Addendum: - Per PT recommendation, will plan for discharge to SNF when possible. Work withcase management to get SNF placement. Addendum Documented By: Aj Smith MD 03/11/241954 Addendum Signed By: <Electronically signed by Aj Smith MD> 03/11/241954 Date of Service: 03/11/2024 Subjective Principal diagnosis: Takotsubo CMP Interval history: No complaints. She wants to go home. She has been borderline hypotensive but stable at that blood pressure and has no symptoms of lightheadedness, dizziness or syncope. However she has not been up out of bed without support and she wouldbe going back home to an assisted living facility with no direct assistance. Therefore will get physical therapy to evaluate her and provide us with discharge disposition recommendations. Exam Physical Exam Vital Signs: Temp Pulse Resp BP Pulse Ox O2 Del Method O2 Flow Rate 98.1 F 58 L 14 84/50 L 95 Nasal Cannula 2 03/11/24 04:00 03/11/24 07:00 03/11/24 07:00 03/11/24 07:00 03/11/24 07:00 03/11/24 07:00 03/11/24 07:00 Narrative: Physical Exam: General: NAD, A&Ox3, Cooperative Head, Eyes: NC/AT, EOMI Lungs: Good air entry; No crackles/rhonchi/wheezes Heart: S1S2 normal, Regular rhythm, No murmurs/rubs/gallop, No JVD Extremities: No edema. Abdomen: Soft, non-tender, non-distended. Neuro: CN grossly intact, No focal deficits. Psych: Normal mood & affect. Objective Labs 03/09/24 21:00 03/11/24 04:34 Labs: Laboratory Results - last 24 hr 03/10/24 03/11/24 22:42 04:34 PHA Creatinine Clear 24.38 Sodium 137 Potassium 4.1 Chloride 104 Carbon Dioxide 26.6 Anion Gap 10.5 BUN 28 H Creatinine 1.25 H Est GFR (CKD-EPI) 41.976 Glucose 114 H Calcium 8.7 Urine Color Yellow Urine Appearance Cloudy A Urine pH 5.5 Ur Specific [place] 1.031 H Urine Protein Negative Urine Glucose (UA) Normal Urine Ketones Negative Urine Occult Blood Negative Urine Nitrite Positive H Urine Bilirubin Negative Urine Urobilinogen Normal Ur Leukocyte Esterase 2+ H Urine RBC 3-4 Urine WBC 5-9 H Ur Squamous Epith Cells 1-2 Urine Bacteria 4+ H Hyaline Casts 0-8 A&P - Cardiology (1) Advancing dementia: Code(s): F03.90 - Unspecified dementia, unspecified severity, without behavioral disturbance, psychotic disturbance, mood disturbance, and anxiety (2) Takotsubo cardiomyopathy: Assessment/Problem Details: Patient presents with recurrent Takotsubo cardiomyopathy Code(s): I51.81 - Takotsubo syndrome (3) Acute coronary syndrome: Code(s): I24.9 - Acute ischemic heart disease, unspecified Plan She has severe cardiomyopathy 15-20% with borderline blood pressures and will not be able to tolerate GDMT medications. These may be introduced as outpatient if her blood pressure returns to normal. I have spoken to her primary assistant program manager this morning, Dr. Lawson, who agrees with the plan above. Monitor today. Ambulate ad porsha. Will get physical therapy to evaluate for discharge recommendations. See subjective above. Plan to D/c today if feasible. Follow-up with Dr. Lawson as outpatient in 1-2 weeks. Documented By: Aj Smith MD 02/21 Signed By: <Electronically signed by Aj Smith MD> 03/11/2429 [facility] Work Phone: 1(608) 937-760805-19-2024 Progress note Author Pinky Nicole [facility] March 11, 2024 2:35pm Note Date/Time March 11, 2024 2:33p m [facility] [address] [place] [address] Pulmonology Progress Note Signed Patient: Milind Tate MR#: [id number] : 1935 Acct:[id number] Age/Sex: 88 / F Adm Date: 4 Loc: Room: [address] [place] [address] Type: ADM IN Attending Dr: Everett Lawson DO Copies to: ~ Date of Service: 03/11/2024 Subjective Subjective Narrative: She denies chest pain, no shortness of breath. She is on nasal cannula she doesnot have home oxygen. She denies abdominal pain. Urine culture were sent yesterday and pending Exam Physical Exam Vital Signs: Temp Pulse Resp BP Pulse Ox O2 Del Method O2 Flow Rate 98.5 F 66 18 83/53 L 93 L Nasal Cannula 3 03/11/24 12:00 03/11/24 14:00 03/11/24 14:00 03/11/24 14:00 03/11/24 14:00 03/11/24 14:00 03/11/24 14:00 Narrative: General awake and alert no distress HEENT clear oropharynx Cardiovascular regular rate, normal S1-S2 Lungs clear to auscultation Abdomen soft nontender Extremity no edema Neuro nonfocal Objective Intake and Output I&O - Last 24 Hours: Intake & Output 03/10/24 03/11/24 03/11/24 23:59 07:59 15:59 Intake Total 472 / 832 200 / 200 Output Total 120 / 120 Balance 352 / 712 200 / 200 Weight 57.1 kg Labs 03/09/24 21:00 03/11/24 04:34 Assessment/Plan Assessment/Plan (1) Acute coronary syndrome: Plan: Left heart catheterization no coronary artery occlusion, she is on Plavix. Cardiology is following (2) Takotsubo cardiomyopathy: (3) Advancing dementia: (4) Anxiety: (5) Hypertension: Plan Patient is followed by cardiology for Takotsubo ejection fraction is reduced 20% Discussed with RN to wean off oxygen as tolerated and evaluate need for home oxygen prior to discharge. Her chest x-ray on presentation was negative She is on her home medications for dementia/anxiety Urine cultures were sent yesterday pending PT/OT evaluation for discharge planning per cardiology Documented By: Pinky Nicole MD 03/11/24 143 Signed By: <Electronically signed by Pinky Nicole MD> 03/11/24 1435 [facility] Work Phone: 1(719) 587-874905-18-2024 Progress note Author Aj Smith [facility] March 10, 2024 4:02pm Note Date/Time March 10, 2024 3:58p m [facility] [address] [place] [address] Cardiology Progress Note Signed with Addenda Patient: Milind Tate MR#: [id number] : 1935 Acct:[id number] Age/Sex: 88 / F Adm Date: 4 Loc: Room: [address] [place] [address] Type: ADM IN Attending Dr: Everett Lawson DO Copies to: ~ ADDENDUM1 Physical Exam: General: NAD, A&Ox3, Elderly Head, Eyes: NC/AT, EOMI Lungs: Good air entry; No crackles Heart: S1S2 normal, Regular rhythm, No murmurs Extremities: No edema. Abdomen: Soft, non-tender, non-distended. Neuro: CN grossly intact, No focal deficits. Addendum Documented By: Aj Smith MD 03/10/24 160 Addendum Signed By: <Electronically signed by Aj Smith MD> 03/10/24 1602 Date of Service: 03/10/2024 Subjective Principal diagnosis: Takotsubo CMP Interval history: No complaints Just got out of bed for the first time this afternoon. BP is hypotensive although she is asymptomatic. I discussed with her that it makes sense to monitor her some more today. Exam Physical Exam Vital Signs: Temp Pulse Resp BP Pulse Ox O2 Del Method O2 Flow Rate 98 F 77 20 88/50 L 97 Room Air 1 03/10/24 12:00 03/10/24 15:00 03/10/24 15:00 03/10/24 15:00 03/10/24 15:00 03/10/24 15:00 03/10/24 08:00 Objective Labs 03/09/24 21:00 03/10/24 04:44 Labs: Laboratory Results - last 24 hr 03/09/24 03/09/24 03/10/24 21:00 23:00 01:40 Corrected WBC 11.8 H Uncorrected WBC Count 11.8 H RBC 4.34 Hgb 13.3 Hct 39.9 MCV 92.0 MCH 30.7 MCHC 33.4 RDW 13.6 Plt Count 248 MPV 7.0 Neut % (Auto) 54.7 Lymph % (Auto) 35.7 [place] % (Auto) 7.5 Eos % (Auto) 1.2 Baso % (Auto) 0.9 Nucleat RBC Rel Count 0.1 Neut # (Auto) 6.5 Lymph # (Auto) 4.2 [place] # (Auto) 0.9 H Eos # (Auto) 0.1 Baso # (Auto) 0.1 Monocyte Dist Width 19.33 PT 10.9 INR 0.9 APTT 27.9 PHA Creatinine Clear 27.07 Sodium 136 Potassium 3.6 Chloride 105 Carbon Dioxide 20.9 L Anion Gap 13.7 BUN 25 Creatinine 1.25 H Est GFR (CKD-EPI) 41.976 Glucose 126 H Calcium 9.5 Total Bilirubin 0.4 AST 24 ALT 12 Alkaline Phosphatase 71 Total Creatine Kinase 71 Troponin I High Sens 1446.7 H* 6642.4 H* 7199.8 H* B-Natriuretic Peptide 57.0 Total Protein 6.5 Albumin 4.0 Globulin 2.5 Albumin/Globulin Ratio 1.6 03/10/24 03/10/24 04:44 06:56 Corrected WBC Uncorrected WBC Count RBC Hgb Hct MCV MCH MCHC RDW Plt Count MPV Neut % (Auto) Lymph % (Auto) [place] % (Auto) Eos % (Auto) Baso % (Auto) Nucleat RBC Rel Count Neut # (Auto) Lymph # (Auto) [place] # (Auto) Eos # (Auto) Baso # (Auto) Monocyte Dist Width PT INR APTT PHA Creatinine Clear 26.97 Sodium 136 Potassium 5.1 D Chloride 102 Carbon Dioxide 25.7 Anion Gap 13.4 BUN 23 Creatinine 1.13 Est GFR (CKD-EPI) 47.381 Glucose 133 H Calcium 9.3 Total Bilirubin AST ALT Alkaline Phosphatase Total Creatine Kinase Troponin I High Sens 7730.0 H* 8379.9 H* B-Natriuretic Peptide Total Protein Albumin Globulin Albumin/Globulin Ratio A&P - Cardiology (1) Advancing dementia: Code(s): F03.90 - Unspecified dementia, unspecified severity, without behavioral disturbance, psychotic disturbance, mood disturbance, and anxiety (2) Takotsubo cardiomyopathy: Assessment/Problem Details: Patient presents with recurrent Takotsubo cardiomyopathy Code(s): I51.81 - Takotsubo syndrome (3) Acute coronary syndrome: Code(s): I24.9 - Acute ischemic heart disease, unspecified Plan Continue GDMT Will give 0.5L bolus due to borderline BPs Monitor today. Ambulate ad porsha. Plan to D/c tomorrow Documented By: Aj Smith MD 02/21 06/16 1555 Signed By: <Electronically signed by Aj Smith MD> 03/10/24 1555 [facility] Work Phone: 1(661) 713-768605-18-2024 Consult note Author Pinky Nicole [facility] March 10, 2024 12:34pm Note Date/Time March 10, 2024 12:28 pm [facility] [address] [place] [address] Pulmonology Consult Note Signed Patient: Milind Tate MR#: [id number] : 1935 Acct:[id number] Age/Sex: 88 / F Adm Date: 4 Loc: Room: [address] [place] [address] Type: ADM IN Attending Dr: Everett Lawson DO Copies to: MD Sara Ware MD W Scott Sheldon, DO~ HPI Date/Time of Consultation: Date of Service: 03/10/2024 Time of Service: 12:27 Consulting Provider: Pinky Nicole Requesting Provider: Everett Lawson Reason for Consult: Critical care management, ST elevation MS, Takotsubo History of Present Illness History of present illness: This is a 88-year-old female with past medical history significant for hypertension, dyslipidemia, dementia, anxiety and depression, coronary artery disease. She presented to the hospital with chest pain. She was taken to the [facility] for [facility] elevation MS and showed single-vessel 50% LAD stenosis and recurrent Takotsubo cardiomyopathy ejection fraction 35%. Patient was admitted to the intensive care unit after the procedure. She is hemodynamically stable. She is anxious she stated that she was having abdominal pain earlier today not now. She is poor historian Review of Systems Review of Systems Unobtainable due to mental condition [facility] Medical History (Updated 03/10/24 @ 12:32 by Pinky Nicole MD) CAD (coronary artery disease) Cataracts, bilateral Hypertension Anxiety Hyperlipidemia Advancing dementia Depression Problem List clean-up per request of Phys. EHR Cmte Anxiety Problem List clean-up per request of Phys. EHR Cmte Migraine Problem List clean-up per request of Phys. EHR Cmte Hypertension Problem List clean-up per request of Phys. EHR [facility] Surgical History H/O hysterectomy with oophorectomy S/P hernia repair Hx of cholecystectomy History of appendectomy Family History Grandparent Throat cancer Father Throat cancer Stroke Mother Stroke Father Cancer Legacy FamHx Problem: Diagnosed with Cancer History of stroke Legacy FamHx Problem: Diagnosed with Stroke Family/Other Legacy FamHx Problem: 1 son is Mother History of stroke Legacy FamHx Problem: Diagnosed with Stroke Social History Smoking Status: Never smoker Substance Use Type: None Social History Comments: this morning Meds Medications and Allergies Allergies amoxicillin [From Augmentin] Allergy (Unknown, Verified 02/09/24 13:40) Unknown Reaction, diarrhea cefdinir [Omnicef] Allergy (Unknown, Verified 02/09/24 13:40) Hives cefuroxime Allergy (Unknown, Verified 02/09/24 13:40) Unknown Reaction, CARDENAS et diarrhea cephalexin [Keflex] Allergy (Unknown, Verified 02/09/24 13:40) Hives Cephalosporins Allergy (Unknown, Verified 02/09/24 13:40) Hives ciprofloxacin [From Cipro] Allergy (Unknown, Verified 02/09/24 13:40) Vomiting, Comment:muscle weakness, muscle weakness clavulanic acid [From Augmentin] Allergy (Unknown, Verified 02/09/24 13:40) Unknown Reaction, diarrhea levofloxacin [From Levaquin] Allergy (Unknown, Verified 02/09/24 13:40) Nausea, diarrhea morphine Allergy (Unknown, Verified 02/09/24 13:40) Hallucinating nitrofurantoin [From Macrobid] Allergy (Unknown, Verified 02/09/24 13:40) Nausea, muscle weakness Ksboewc-ANN-GiF Reductase Inhibitor Allergy (Unknown, Verified 02/09/24 13:40) Hives sulfamethoxazole [Bactrim] Allergy (Unknown, Verified 02/09/24 13:40) shortness of breath trimethoprim Allergy (Unknown, Verified 02/09/24 13:40) Unknown Reaction, shortness of breath Home Medications alprazolam 0.25 mg tablet (Xanax) 0.25 mg PO QHS PRN Anxiety 05/07/22 [History Confirmed 03/09/24] aspirin 81 mg tablet,delayed release 81 mg PO DAILY #0 tabs 05/07/22 [Rx Confirmed 03/09/24] losartan 25 mg tablet 25 mg PO QAM 30 days #30 tabs 05/07/22 [Rx Confirmed 03/09/24] omega 9-kta-xul-fish oil 1,000 mg (120 mg-180 mg) capsule 2 cap PO DAILY 05/07/22 [History Confirmed 03/09/24] spironolactone 25 mg tablet 12.5 mg (1/2 x 25 mg) PO DAILY 30 days #15 tabs 05/07/22 [Rx Confirmed 03/09/24] sumatriptan succinate 100 mg tablet 100 mg PO DAILY PRN Headache 05/07/22 [History Confirmed 03/09/24] memantine 10 mg tablet 10 mg PO BID 02/09/24 [History Confirmed 03/09/24] citalopram 40 mg tablet See Rx Instructions .Route .COMPLEX #30 ea 02/16/24 [Rx Confirmed 03/09/24] hydroxyzine HCl 25 mg tablet See Rx Instructions .Route .COMPLEX #90 ea 02/16/24[Rx Confirmed 03/09/24] Exam Physical Exam Vital Signs: Temp Pulse Resp BP Pulse Ox O2 Del Method O2 Flow Rate 98 F 72 20 111/68 96 Room Air 1 03/10/24 08:00 03/10/24 10:00 03/10/24 10:00 03/10/24 10:00 03/10/24 10:00 03/10/24 10:00 03/10/24 08:00 Narrative: General awake and alert no distress HEENT clear oropharynx Cardiovascular regular rate, normal S1-S2 Lungs clear to auscultation Abdomen soft nontender Extremity no edema Neuro nonfocal Results - Pulmonology Intake and Output I&O - Last 24 Hours: Intake & Output 03/09/24 03/10/24 03/10/24 23:59 07:59 15:59 Intake Total 120 / 120 Balance 120 / 120 Weight 56.9 kg 56.9 kg Labs 03/09/24 21:00 03/10/24 04:44 Additional Results Results Comments: Chest x-ray was reviewed Assessment/Plan (1) Acute coronary syndrome: Plan: Left heart catheterization no coronary artery occlusion, she is on Plavix. Cardiology is following (2) Takotsubo cardiomyopathy: Plan: Reduced ejection fraction 35%, she does not appear to be in fluid overload (3) Advancing dementia: Plan: Mental status is close to baseline. She was reporting abdominal pain earlier she does not have it now. I will check UA and culture Continue meds for dementia (4) Anxiety: Plan: She was on Xanax at nighttime as needed (5) Hypertension: Plan: Continue Coreg and losartan Documented By: Pinky Nicole MD 03/10/24 1227 Signed By: <Electronically signed by Pinky Nicole MD> 03/10/24 6953 [facility] Work Phone: 1(982) 681-148205-17-2024 History and physical note Author Everett Lawson [facility] March 09, 2024 9:52pm Note Date/Time March 09, 2024 9:27p m [facility] [address] [place] [address] Cardiology H&P Signed Patient: Milind Tate MR#: [id number] : 1935 Acct:[id number] Age/Sex: 88 / F Adm Date: 4 Loc: CL [facility]: [facility] Attending Dr: Everett Lawson DO Copies to: MD Everett Grissom DO~ Date of Service: 03/09/2024 Cardiology HPI History of Present Illness Chief complaint: Acute anterolateral STEMI HPI: Ms. Tate is a 88 year old female admitted in transit from [facility] with acute anterolateral STEMI. ECG transmitted from [facility] confirms anterolateral ST elevation injury current, upon arrival 2050, initial ECG confirms sinus rhythm with low voltage and anterolateral ST elevation injury current. Patient arrives in stable condition without arrhythmia, heart failure Past medical history is noted for acute stress related cardiomyopathy/Takotsubo syndrome in April 2022, treated by myself and at that time with completely normalcoronary arteries Further past medical history is noted for progressive dementia, essential hypertension, frailty. Total 60 minutes nonprocedural critical care time were devoted to the ER staff, [facility] [employer] [employer] staff, nursing staff, patient and family both pre and post procedurallyand reviewing prearrival ECGs and discussion with ER attending. Review of Systems Review of Systems All other systems reviewed & are negative unless noted below or in HPI Constitutional Constitutional: Reports as per HPI Cardiovascular Cardiovascular: Reports as per HPI and Reports chest pain at rest [facility] Medical History (Updated 03/09/24 @ 21:51 by Everett Lawson DO) CAD (coronary artery disease) Cataracts, bilateral Hypertension Anxiety Hyperlipidemia Advancing dementia Depression Problem List clean-up per request of Phys. EHR Cmte Anxiety Problem List clean-up per request of Phys. EHR Cmte Migraine Problem List clean-up per request of Phys. EHR Cmte Hypertension Problem List clean-up per request of Phys. EHR Cmte Surgical History H/O hysterectomy with oophorectomy S/P hernia repair Hx of cholecystectomy History of appendectomy Family History Grandparent Throat cancer Father Throat cancer Stroke Mother Stroke Father Cancer Legacy FamHx Problem: Diagnosed with Cancer History of stroke Legacy FamHx Problem: Diagnosed with Stroke Family/Other Legacy FamHx Problem: 1 son is Mother History of stroke Legacy FamHx Problem: Diagnosed with Stroke Social History Smoking Status: Never smoker Substance Use Type: None Social History Comments: this morning Meds Medications and Allergies Allergies amoxicillin [From Augmentin] Allergy (Unknown, Verified 02/09/24 13:40) Unknown Reaction, diarrhea cefdinir [Omnicef] Allergy (Unknown, Verified 02/09/24 13:40) Hives cefuroxime Allergy (Unknown, Verified 02/09/24 13:40) Unknown Reaction, CARDENAS et diarrhea cephalexin [Keflex] Allergy (Unknown, Verified 02/09/24 13:40) Hives Cephalosporins Allergy (Unknown, Verified 02/09/24 13:40) Hives ciprofloxacin [From Cipro] Allergy (Unknown, Verified 02/09/24 13:40) Vomiting, Comment:muscle weakness, muscle weakness clavulanic acid [From Augmentin] Allergy (Unknown, Verified 02/09/24 13:40) Unknown Reaction, diarrhea levofloxacin [From Levaquin] Allergy (Unknown, Verified 02/09/24 13:40) Nausea, diarrhea morphine Allergy (Unknown, Verified 02/09/24 13:40) Hallucinating nitrofurantoin [From Macrobid] Allergy (Unknown, Verified 02/09/24 13:40) Nausea, muscle weakness Wdgqdlm-RLE-XrX Reductase Inhibitor Allergy (Unknown, Verified 02/09/24 13:40) Hives sulfamethoxazole [Bactrim] Allergy (Unknown, Verified 02/09/24 13:40) shortness of breath trimethoprim Allergy (Unknown, Verified 02/09/24 13:40) Unknown Reaction, shortness of breath Home Medications alprazolam 0.25 mg tablet (Xanax) 0.25 mg PO QHS PRN Anxiety 05/07/22 [History Confirmed 03/09/24] aspirin 81 mg tablet,delayed release 81 mg PO DAILY #0 tabs 05/07/22 [Rx Confirmed 03/09/24] losartan 25 mg tablet 25 mg PO QAM 30 days #30 tabs 05/07/22 [Rx Confirmed 03/09/24] omega 0-sqn-naf-fish oil 1,000 mg (120 mg-180 mg) capsule 2 cap PO DAILY 05/07/22 [History Confirmed 03/09/24] spironolactone 25 mg tablet 12.5 mg (1/2 x 25 mg) PO DAILY 30 days #15 tabs 05/07/22 [Rx Confirmed 03/09/24] sumatriptan succinate 100 mg tablet 100 mg PO DAILY PRN Headache 05/07/22 [History Confirmed 03/09/24] memantine 10 mg tablet 10 mg PO BID 02/09/24 [History Confirmed 03/09/24] citalopram 40 mg tablet See Rx Instructions .Route .COMPLEX #30 ea 02/16/24 [Rx Confirmed 03/09/24] hydroxyzine HCl 25 mg tablet See Rx Instructions .Route .COMPLEX #90 ea 02/16/24[Rx Confirmed 03/09/24] Exam Physical Exam Vital Signs: Temp Pulse Resp BP Pulse Ox O2 Del Method 98.8 F 77 20 146/93 H 96 Room Air 03/09/24 20:51 03/09/24 21:12 03/09/24 21:12 03/09/24 21:12 03/09/24 21:12 03/09/24 21:12 Const General: cooperative and in distress mild Nutritional Appearance: thin Orientation: alert, awake and oriented x3 HEENT Head: normal to inspection Neck Neck: normal visual inspection Chest Chest palpation & inspection: normal inspection of the chest Resp Effort & Inspection: normal respiratory effort Auscultation: clear to auscultation bilaterally Cardio Rate: regular rate Rhythm: regular rhythm Heart Sounds: S1 normal and S2 normal Pulses: radial pulses present and femoral pulses present GI Palpation: soft Skin General: no rashes or lesions noted Neuro General: patient alert, patient awake and patient oriented x3 Cognition: abnormal cognition Speech: speech normal Extrem General: no clubbing, cyanosis or edema Psych Mood: anxious mood Results - Cardiology Labs 03/09/24 21:00 03/09/24 21:00 Lab results: CBC 03/09/24 Range/Units 21:00 RBC 4.34 (3.60-5.00) X10E6/uL Hgb 13.3 (11.8-15.4) g/dL Hct 39.9 (34.0-46.4) % Plt Count 248 (150-450) x10E3/uL Neut # (Auto) 6.5 (1.8-7.7) x10E3/uL Lymph # (Auto) 4.2 (1.00-4.8) x10E3/uL [place] # (Auto) 0.9 H (0.0-0.8) x10E3/uL Eos # (Auto) 0.1 (0.0-0.45) x10E3/uL Baso # (Auto) 0.1 (0.0-0.2) x10E3/uL Intake and Output 03/09/24 03/09/24 03/09/24 07:59 15:59 23:59 Other: Weight 61 kg Patient Weight 03/09/24 23:59 Weight 61 kg EKG Interpretations EKG EKG results cardiology: sinus rhythm MS, pacemaker, normal Myocardial infarction: anterior MS (acute or recent) A&P - Cardiology (1) Advancing dementia: Code(s): F03.90 - Unspecified dementia, unspecified severity, without behavioral disturbance, psychotic disturbance, mood disturbance, and anxiety (2) Takotsubo cardiomyopathy: Assessment/Problem Details: Patient presents with recurrent Takotsubo cardiomyopathy Plan: Continue GDMT Consider anticoagulation for thromboembolic prophylaxis Code(s): I51.81 - Takotsubo syndrome (3) Acute coronary syndrome: Code(s): I24.9 - Acute ischemic heart disease, unspecified Plan Medical therapy Documented By: Everett Lawson DO 03/09/242125 Signed By: <Electronically signed by Everett Lawson DO> 03/09/242151 [facility] Work Phone: 1(866) 176-672905-17-2024 History and physical note Author Everett Lawson [facility] March 09, 2024 9:52pm Note Date/Time March 09, 2024 9:27p [facility] [address] [place] [address] Cardiology H&P Signed Patient: Milind Tate MR#: [id number] : 1935 Acct:[id number] Age/Sex: 88 / F Adm Date: 4 Loc: Room: Type: [facility] Attending Dr: Everett Lawson DO Copies to: MD Everett Grissom DO~ Date of Service: 03/09/2024 Cardiology HPI History of Present Illness Chief complaint: Acute anterolateral STEMI HPI: Ms. Tate is a 88 year old female admitted in transit from [facility] with acute anterolateral STEMI. ECG transmitted from [facility] confirms anterolateral ST elevation injury current, upon arrival 2050, initial ECG confirms sinus rhythm with low voltage and anterolateral ST elevation injury current. Patient arrives in stable condition without arrhythmia, heart failure Past medical history is noted for acute stress related cardiomyopathy/Takotsubo syndrome in April 2022, treated by myself and at that time with completely normalcoronary arteries Further past medical history is noted for progressive dementia, essential hypertension, frailty. Total 60 minutes nonprocedural critical care time were devoted to the ER staff, [employer] staff, nursing staff, patient and family both pre and post procedurallyand reviewing prearrival ECGs and discussion with ER attending. Review of Systems Review of Systems All other systems reviewed & are negative unless noted below or in HPI Constitutional Constitutional: Reports as per HPI Cardiovascular Cardiovascular: Reports as per HPI and Reports chest pain at rest [facility] Medical History (Updated 03/09/24 @ 21:51 by Everett Lawson DO) CAD (coronary artery disease) Cataracts, bilateral Hypertension Anxiety Hyperlipidemia Advancing dementia Depression Problem List clean-up per request of Phys. EHR Cmte Anxiety Problem List clean-up per request of Phys. EHR Cmte Migraine Problem List clean-up per request of Phys. EHR Cmte Hypertension Problem List clean-up per request of Phys. EHR Cmte Surgical History H/O hysterectomy with oophorectomy S/P hernia repair Hx of cholecystectomy History of appendectomy Family History Grandparent Throat cancer Father Throat cancer Stroke Mother Stroke Father Cancer Legacy FamHx Problem: Diagnosed with Cancer History of stroke Legacy FamHx Problem: Diagnosed with Stroke Family/Other Legacy FamHx Problem: 1 son is Mother History of stroke Legacy FamHx Problem: Diagnosed with Stroke Social History Smoking Status: Never smoker Substance Use Type: None Social History Comments: this morning Meds Medications and Allergies Allergies amoxicillin [From Augmentin] Allergy (Unknown, Verified 02/09/24 13:40) Unknown Reaction, diarrhea cefdinir [Omnicef] Allergy (Unknown, Verified 02/09/24 13:40) Hives cefuroxime Allergy (Unknown, Verified 02/09/24 13:40) Unknown Reaction, CARDENAS et diarrhea cephalexin [Keflex] Allergy (Unknown, Verified 02/09/24 13:40) Hives Cephalosporins Allergy (Unknown, Verified 02/09/24 13:40) Hives ciprofloxacin [From Cipro] Allergy (Unknown, Verified 02/09/24 13:40) Vomiting, Comment:muscle weakness, muscle weakness clavulanic acid [From Augmentin] Allergy (Unknown, Verified 02/09/24 13:40) Unknown Reaction, diarrhea levofloxacin [From Levaquin] Allergy (Unknown, Verified 02/09/24 13:40) Nausea, diarrhea morphine Allergy (Unknown, Verified 02/09/24 13:40) Hallucinating nitrofurantoin [From Macrobid] Allergy (Unknown, Verified 02/09/24 13:40) Nausea, muscle weakness Rxkifyd-HNZ-GuI Reductase Inhibitor Allergy (Unknown, Verified 02/09/24 13:40) Hives sulfamethoxazole [Bactrim] Allergy (Unknown, Verified 02/09/24 13:40) shortness of breath trimethoprim Allergy (Unknown, Verified 02/09/24 13:40) Unknown Reaction, shortness of breath Home Medications alprazolam 0.25 mg tablet (Xanax) 0.25 mg PO QHS PRN Anxiety 05/07/22 [History Confirmed 03/09/24] aspirin 81 mg tablet,delayed release 81 mg PO DAILY #0 tabs 05/07/22 [Rx Confirmed 03/09/24] losartan 25 mg tablet 25 mg PO QAM 30 days #30 tabs 05/07/22 [Rx Confirmed 03/09/24] omega 5-gaw-cug-fish oil 1,000 mg (120 mg-180 mg) capsule 2 cap PO DAILY 05/07/22 [History Confirmed 03/09/24] spironolactone 25 mg tablet 12.5 mg (1/2 x 25 mg) PO DAILY 30 days #15 tabs 05/07/22 [Rx Confirmed 03/09/24] sumatriptan succinate 100 mg tablet 100 mg PO DAILY PRN Headache 05/07/22 [History Confirmed 03/09/24] memantine 10 mg tablet 10 mg PO BID 02/09/24 [History Confirmed 03/09/24] citalopram 40 mg tablet See Rx Instructions .Route .COMPLEX #30 ea 02/16/24 [Rx Confirmed 03/09/24] hydroxyzine HCl 25 mg tablet See Rx Instructions .Route .COMPLEX #90 ea 02/16/24[Rx Confirmed 03/09/24] Exam Physical Exam Vital Signs: Temp Pulse Resp BP Pulse Ox O2 Del Method 98.8 F 77 20 146/93 H 96 Room Air 03/09/24 20:51 03/09/24 21:12 03/09/24 21:12 03/09/24 21:12 03/09/24 21:12 03/09/24 21:12 Const General: cooperative and in distress mild Nutritional Appearance: thin Orientation: alert, awake and oriented x3 HEENT Head: normal to inspection Neck Neck: normal visual inspection Chest Chest palpation & inspection: normal inspection of the chest Resp Effort & Inspection: normal respiratory effort Auscultation: clear to auscultation bilaterally Cardio Rate: regular rate Rhythm: regular rhythm Heart Sounds: S1 normal and S2 normal Pulses: radial pulses present and femoral pulses present GI Palpation: soft Skin General: no rashes or lesions noted Neuro General: patient alert, patient awake and patient oriented x3 Cognition: abnormal cognition Speech: speech normal Extrem General: no clubbing, cyanosis or edema Psych Mood: anxious mood Results - Cardiology Labs 03/09/24 21:00 03/09/24 21:00 Lab results: CBC 03/09/24 Range/Units 21:00 RBC 4.34 (3.60-5.00) X10E6/uL Hgb 13.3 (11.8-15.4) g/dL Hct 39.9 (34.0-46.4) % Plt Count 248 (150-450) x10E3/uL Neut # (Auto) 6.5 (1.8-7.7) x10E3/uL Lymph # (Auto) 4.2 (1.00-4.8) x10E3/uL [place] # (Auto) 0.9 H (0.0-0.8) x10E3/uL Eos # (Auto) 0.1 (0.0-0.45) x10E3/uL Baso # (Auto) 0.1 (0.0-0.2) x10E3/uL Intake and Output 03/09/24 03/09/24 03/09/24 07:59 15:59 23:59 Other: Weight 61 kg Patient Weight 03/09/24 23:59 Weight 61 kg EKG Interpretations EKG EKG results cardiology: sinus rhythm MS, pacemaker, normal Myocardial infarction: anterior MS (acute or recent) A&P - Cardiology (1) Advancing dementia: Code(s): F03.90 - Unspecified dementia, unspecified severity, without behavioral disturbance, psychotic disturbance, mood disturbance, and anxiety (2) Takotsubo cardiomyopathy: Assessment/Problem Details: Patient presents with recurrent Takotsubo cardiomyopathy Plan: Continue GDMT Consider anticoagulation for thromboembolic prophylaxis Code(s): I51.81 - Takotsubo syndrome (3) Acute coronary syndrome: Code(s): I24.9 - Acute ischemic heart disease, unspecified Plan Medical therapy Documented By: Everett Lawson DO 03/09/242125 Signed By: <Electronically signed by Everett Lawson DO> 03/09/242151 [facility] Work Phone: 1(678) 507-844505-17-2024 Procedure [facility]* Encounter Date Diagnosis Assessment Notes Treatment Notes Treatment Clinical Notes Oct, Anxiety (ICD-10 - F41.9) Increased dose of citalopram. Increased frequency of alprazolam and added hydroxyzine. Oct, Advancing dementia (ICD-10 - F03.90) Continue followup w GLORIA Oct, SK (solar keratosis) (ICD-10 - L57.0) gave samples of cereve cream Yeahka [facility] [employer] Other 01-30-2024 Evaluation note* Encounter Date Diagnosis Assessment Notes Treatment Notes Treatment Clinical Notes Oct, Anxiety (ICD-10 - F41.9) [email or web address] Other 01-22-2024 Evaluation note* Encounter Date Diagnosis Assessment Notes Treatment Notes Treatment Clinical Notes Oct, Anxiety (ICD-10 - F41.9) Oct, Moderate dementia without behavioral disturbance, psychotic disturbance, mood disturbance, or anxiety, unspecified dementia type (ICD-10 - F03.B0) [email or web address] Other 01-04-2024 Evaluation note* Encounter Date Diagnosis Assessment Notes Treatment Notes Treatment Clinical Notes Oct, Moderate dementia without behavioral disturbance, psychotic disturbance, mood disturbance, or anxiety, unspecified dementia type (ICD-10 - F03.B0) Discussed options and shared daughter's number w Minna and Extended family. Discussed [place] options exclusively as most family is here. [email or web address] Other 10-19-2023 Evaluation note* Encounter Date Diagnosis Assessment Notes Treatment Notes Treatment Clinical Notes Jul, Dysuria (ICD-10 - R30.0) UA overall normal. Jul, Confusion (ICD-10 - R41.0) Daughter relates there was an acute change from prior to the ER visit. She does not feel that Marla has returned to her usual mental state. Will recheck culture to make sure it cleared. Jul, Unspecified infectious disease (ICD-10 - B99.9) Has finished course of keflex and will recheck urine culture to make sure it is cleared. Jul, Disorientation, unspecified (ICD-10 - R41.0) Dementia - vascular v. Alzheimers. Followup w Neurology as scheduled. Will forward results and note to their office. [email or web address] Other 09-12-2023 History of Present illness Narrative* Kimber Edmondson - 07/05/2023 1:00 PM EDT Review of Systems Constitutional: Negative for chills, fatigue and fever. HENT: Negative for hearing loss. Eyes: Negative for visual disturbance. Respiratory: Negative for shortness of breath. Gastrointestinal: Negative for abdominal pain and blood in stool. Endocrine: Negative for polydipsia. Genitourinary: Negative for hematuria. Musculoskeletal: Positive for arthralgias. Negative for myalgias. Neurological: Negative for dizziness, seizures and numbness. Hematological: Bruises/bleeds easily. Psychiatric/Behavioral: Negative for dysphoric mood. * Alissa Downing LPN - 07/05/2023 1:00 PM EDTAssociated Order(s): UPPER EXTREMITY INJECTION: L extensor compartment 1 Post-Procedure Diagnose(s): De Quervain's disease (tenosynovitis) UPPER EXTREMITY INJECTION: L extensor compartment 1 Date/Time: 07/05/2023 1:00 PM Performed by: Kahlil Wakefield PA-C Authorized by: Kahlil Wakefield PA-C Supporting Documentation Indications: pain Procedure Details: Procedure: tendon sheath / ligament injection Location: wrist - L extensor compartment 1 Needle size: 25 G Approach: radial Medications administered: 40 mg methylPREDNISolone acetate 40 MG/ML; 2 mL Bupivacaine 0.25 %; 2 mL Lidocaine 10 mg/mL Medication Verification: I have personally verified and performed the final check of the medication(s) used in this procedure prior to administration. The following items were included during the verification process for medication(s) administered: drug name, strength, volume, expiration, physical integrity and appearance of the medication(s). Patient tolerance: patient tolerated the procedure well with no immediate complications Consent: Consent was obtained prior to the procedure after discussion of the risks, benefits and alternatives, and expected outcomes were discussed with the patient. The possibilities of reaction to medication, bleeding, infection, the need for additional procedures, failure to diagnosis a condition, and creating a complication requiring operation were discussed with the patient. The patient concurred with the proposed plan, giving consent. (Informed consent is obtained. Risks and benefits havebeen discussed. The patient understands and wishes to proceed. ) Preparation: Patient was prepped in the usual sterile fashion. The patient was prepped with alcohol. * Kahlil Wakefield PA-C - 07/05/2023 1:00 PM EDT 07/05/23 Chief Complaint: Chief Complaint Patient presents with New Patient Left wrist pain. DOI approx 4m. Pain varies HPI: Marla is an 87-year-old white female presents to the office today chief complaint of left wristand thumb pain that she has had for years. She is complaining of swelling and pain with gripping. She has tried Voltaren gel with some relief. She tried a brace without relief. She is right-hand dominant. Past Medical History: Past Medical History: Diagnosis Date Dementia HTN (hypertension) Past Surgical History: No past surgical history on file. ROS: Review of Systems Constitutional: Negative for chills, fatigue and fever. HENT: Negative for hearing loss. Eyes: Negative for visual disturbance. Respiratory: Negative for shortness of breath. Gastrointestinal: Negative for abdominal pain and blood in stool. Endocrine: Negative for polydipsia. Genitourinary: Negative for hematuria. Musculoskeletal: Positive for arthralgias. Negative for myalgias. Neurological: Negative for dizziness, seizures and numbness. Hematological: Bruises/bleeds easily. Psychiatric/Behavioral: Negative for dysphoric mood. UPPER EXTREMITY INJECTION: L extensor compartment 1 Date/Time: 07/05/2023 1:00 PM Performed by: Kahlil Wakefield PA-C Authorized by: Kahlil Wakefield PA-C Supporting Documentation Indications: pain Procedure Details: Procedure: tendon sheath / ligament injection Location: wrist - L extensor compartment 1 Needle size: 25 G Approach: radial Medications administered: 40 mg methylPREDNISolone acetate 40 MG/ML; 2 mL Bupivacaine 0.25 %; 2 mL Lidocaine 10 mg/mL Medication Verification: I have personally verified and performed the final check of the medication(s) used in this procedure prior to administration. The following items were included during the verification process for medication(s) administered: drug name, strength, volume, expiration, physical integrity and appearance of the medication(s). Patient tolerance: patient tolerated the procedure well with no immediate complications Consent: Consent was obtained prior to the procedure after discussion of the risks, benefits and alternatives, and expected outcomes were discussed with the patient. The possibilities of reaction to medication, bleeding, infection, the need for additional procedures, failure to diagnosis a condition, and creating a complication requiring operation were discussed with the patient. The patient concurred with the proposed plan, giving consent. (Informed consent is obtained. Risks and benefits havebeen discussed. The patient understands and wishes to proceed. ) Preparation: Patient was prepped in the usual sterile fashion. The patient was prepped with alcohol. Physical Exam: Vitals: 07/05/23 1252 Temp: 98.2 degrees F (36.8 degrees C) Weight: 63.5 kg (140 lb) Height: 1.549 m (5' 1 ) Awake, alert, and oriented x3 Extremity: On exam today of her left wrist she is tenderness over the 1st dorsal compartment, the basal joint and the radiocarpal joint. The 1st dorsal compartment by far the worst. She is pain with Amauri's maneuver. No pain with wrist flexion and extension. No pain with grind maneuver. She is able make a composite fist. She has brisk capillary refill and skin is warm and dry. Diagnostic Studies: Radiographs of her hand previously taken also was reviewed by myself today which does demonstrate severe basal joint arthritis. There is radiocarpal joint arthritis with a cyst inthe lunate. No evidence of fracture, dislocation, or other bony abnormality. Assessment: Left de Quervain tenosynovitis Plan: I have discussed the options with her. At this point she does desire steroid injection. Please see procedure note further details. She can use ice, Tylenol anti-inflammatories as needed for pain. I will see her back in 2 months to see how she is progressing. If she is doing well she may call and cancel. documented in this [facility]* Encounter Date Diagnosis Assessment Notes Treatment Notes Treatment Clinical Notes Oct, Unilateral weakness (ICD-10 - R53.1) Discussed symptoms and problems at length with patient and daughter. We will add carotid ultrasound to the MRI that is scheduled for November 25 at [facility]. Discussed also initiating a referral to neurology. Daughter is not familiar with 1 in the [place] area at this time. We will find a convenient location in [facility] for further assessment. Discussed that even if MRI is normal her unilateral weakness is concerning. PT and OT starting later this week. Oct, Moderate dementia without behavioral disturbance, psychotic disturbance, mood disturbance, or anxiety, unspecified dementia type (ICD-10 - F03.B0) Stable and unchanged on Namenda Oct, Primary osteoarthritis, unspecified site (ICD-10 - M19.91) Patient decided to not follow-up with rheumatology further. Oct, PMR (polymyalgia rheumatica) (ICD-10 - M35.3) Oct, Coronary artery disease involving ho-chunk coronary artery of ho-chunk heart without angina pectoris (ICD-10 - I25.10) Patient under the care of cardiology. [email or web address] Other Chief complaint Narrative - Reported* 86-year-old female who returns for transitions of care management visit following recent acute coronary syndrome and diagnosed with stress related cardiomyopathy. She witnessed the of her ; classic presentation from a clinical standpoint, with subsequent chest discomfort, non-ST elevation MS. Subsequent catheterization revealed normal coronary arteries and apical ballooning. She remains on appropriate guideline directed medical therapies as noted. She is overall better with no recurrent chest discomfort she has had no heart failure, clinical arrhythmias/tachyarrhythmias or syncope. * She is currently asymptomatic, without any significant restrictions physically given her age * Recommendations: We have educated her on maintaining compliance with medical therapies, following up with imaging within the next 4 to 8 weeks, we will see her again in 6 months on same therapy [facility] 250 DO Work Phone: Chief complaint Narrative - Reported* 86-year-old female who returns for transitions of care management visit following recent acute coronary syndrome and diagnosed with stress related cardiomyopathy. She witnessed the of her ; classic presentation from a clinical standpoint, with subsequent chest discomfort, non-ST elevation MS. Subsequent catheterization revealed normal coronary arteries and apical ballooning. She remains on appropriate guideline directed medical therapies as noted. She is overall better with no recurrent chest discomfort she has had no heart failure, clinical arrhythmias/tachyarrhythmias or syncope. * She is currently asymptomatic, without any significant restrictions physically given her age * Recommendations: We have educated her on maintaining compliance with medical therapies, following up with imaging within the next 4 to 8 weeks, we will see her again in 6 months on same therapy [facility] Work Phone: Consult note Author Pinky Nicole [facility] March 10, 2024 12:34pm Note Date/Time March 10, 2024 12:28 pm [facility] [address] [place] [address] Pulmonology Consult Note Signed Patient: Milind Tate MR#: [id number] : 1935 Acct:[id number] Age/Sex: 88 / F Adm Date: 4 Loc: Room: 7S4135-6 Type: ADM IN Attending Dr: Everett Lawson DO Copies to: MD Sara Ware MD W Scott Sheldon, DO~ HPI Date/Time of Consultation: Date of Service: 03/10/2024 Time of Service: 12:27 Consulting Provider: Pinky Nicole Requesting Provider: Everett Lawson Reason for Consult: Critical care management, ST elevation MS, Takotsubo History of Present Illness History of present illness: This is a 88-year-old female with past medical history significant for hypertension, dyslipidemia, dementia, anxiety and depression, coronary artery disease. She presented to the hospital with chest pain. She was taken to the [facility] for ST elevation MS and showed single-vessel 50% LAD stenosis and recurrent Takotsubo cardiomyopathy ejection fraction 35%. Patient was admitted to the intensive care unit after the procedure. She is hemodynamically stable. She is anxious she stated that she was having abdominal pain earlier today not now. She is poor historian Review of Systems Review of Systems Unobtainable due to mental condition [facility] Medical History (Updated 03/10/24 @ 12:32 by Pinky Nicole MD) CAD (coronary artery disease) Cataracts, bilateral Hypertension Anxiety Hyperlipidemia Advancing dementia Depression Problem List clean-up per request of Phys. EHR Cmte Anxiety Problem List clean-up per request of Phys. EHR Cmte Migraine Problem List clean-up per request of Phys. EHR Cmte Hypertension Problem List clean-up per request of Phys. EHR Cmte Surgical History H/O hysterectomy with oophorectomy S/P hernia repair Hx of cholecystectomy History of appendectomy Family History Grandparent Throat cancer Father Throat cancer Stroke Mother Stroke Father Cancer Legacy FamHx Problem: Diagnosed with Cancer History of stroke Legacy FamHx Problem: Diagnosed with Stroke Family/Other Legacy FamHx Problem: 1 son is Mother History of stroke Legacy FamHx Problem: Diagnosed with Stroke Social History Smoking Status: Never smoker Substance Use Type: None Social History Comments: this morning Meds Medications and Allergies Allergies amoxicillin [From Augmentin] Allergy (Unknown, Verified 02/09/24 13:40) Unknown Reaction, diarrhea cefdinir [Omnicef] Allergy (Unknown, Verified 02/09/24 13:40) Hives cefuroxime Allergy (Unknown, Verified 02/09/24 13:40) Unknown Reaction, CARDENAS et diarrhea cephalexin [Keflex] Allergy (Unknown, Verified 02/09/24 13:40) Hives Cephalosporins Allergy (Unknown, Verified 02/09/24 13:40) Hives ciprofloxacin [From Cipro] Allergy (Unknown, Verified 02/09/24 13:40) Vomiting, Comment:muscle weakness, muscle weakness clavulanic acid [From Augmentin] Allergy (Unknown, Verified 02/09/24 13:40) Unknown Reaction, diarrhea levofloxacin [From Levaquin] Allergy (Unknown, Verified 02/09/24 13:40) Nausea, diarrhea morphine Allergy (Unknown, Verified 02/09/24 13:40) Hallucinating nitrofurantoin [From Macrobid] Allergy (Unknown, Verified 02/09/24 13:40) Nausea, muscle weakness Bxvacmb-DHN-UgH Reductase Inhibitor Allergy (Unknown, Verified 02/09/24 13:40) Hives sulfamethoxazole [Bactrim] Allergy (Unknown, Verified 02/09/24 13:40) shortness of breath trimethoprim Allergy (Unknown, Verified 02/09/24 13:40) Unknown Reaction, shortness of breath Home Medications alprazolam 0.25 mg tablet (Xanax) 0.25 mg PO QHS PRN Anxiety 05/07/22 [History Confirmed 03/09/24] aspirin 81 mg tablet,delayed release 81 mg PO DAILY #0 tabs 05/07/22 [Rx Confirmed 03/09/24] losartan 25 mg tablet 25 mg PO QAM 30 days #30 tabs 05/07/22 [Rx Confirmed 03/09/24] omega 3-uit-jij-fish oil 1,000 mg (120 mg-180 mg) capsule 2 cap PO DAILY 05/07/22 [History Confirmed 03/09/24] spironolactone 25 mg tablet 12.5 mg (1/2 x 25 mg) PO DAILY 30 days #15 tabs 05/07/22 [Rx Confirmed 03/09/24] sumatriptan succinate 100 mg tablet 100 mg PO DAILY PRN Headache 05/07/22 [History Confirmed 03/09/24] memantine 10 mg tablet 10 mg PO BID 02/09/24 [History Confirmed 03/09/24] citalopram 40 mg tablet See Rx Instructions .Route .COMPLEX #30 ea 02/16/24 [Rx Confirmed 03/09/24] hydroxyzine HCl 25 mg tablet See Rx Instructions .Route .COMPLEX #90 ea 02/16/24[Rx Confirmed 03/09/24] Exam Physical Exam Vital Signs: Temp Pulse Resp BP Pulse Ox O2 Del Method O2 Flow Rate 98 F 72 20 111/68 96 Room Air 1 03/10/24 08:00 03/10/24 10:00 03/10/24 10:00 03/10/24 10:00 03/10/24 10:00 03/10/24 10:00 03/10/24 08:00 Narrative: General awake and alert no distress HEENT clear oropharynx Cardiovascular regular rate, normal S1-S2 Lungs clear to auscultation Abdomen soft nontender Extremity no edema Neuro nonfocal Results - Pulmonology Intake and Output I&O - Last 24 Hours: Intake & Output 03/09/24 03/10/24 03/10/24 23:59 07:59 15:59 Intake Total 120 / 120 Balance 120 / 120 Weight 56.9 kg 56.9 kg Labs 03/09/24 21:00 03/10/24 04:44 Additional Results Results Comments: Chest x-ray was reviewed Assessment/Plan (1) Acute coronary syndrome: Plan: Left heart catheterization no coronary artery occlusion, she is on Plavix. Cardiology is following (2) Takotsubo cardiomyopathy: Plan: Reduced ejection fraction 35%, she does not appear to be in fluid overload (3) Advancing dementia: Plan: Mental status is close to baseline. She was reporting abdominal pain earlier she does not have it now. I will check UA and culture Continue meds for dementia (4) Anxiety: Plan: She was on Xanax at nighttime as needed (5) Hypertension: Plan: Continue Coreg and losartan Documented By: Pinky Nicole MD 03/10/24 1227 Signed By: <Electronically signed by Pinky Nicole MD> 03/10/24 1234 [facility] Work Phone: Discharge summary Author W Renny [facility] March 14, 2024 12:39pm Note Date/Time March 14, 2024 12:39 pm [facility] [address] [place] [address] Discharge Summary Signed Patient: Milind Tate MR#: [id number] : 1935 Acct:[id number] Age/Sex: 88 / F Adm Date: 4 Loc: Room: [address] [place] [address]: Everett Lawson DO Copies to: MD Everett Grissom DO~ Providers Date of Discharge: 03/14/24 Discharging Provider: Everett Lawson Primary Care Provider: Sara Blake Consults: 03/09/24 22:48 Consult to Pulmonology Routine Comment: Consulting Provider: Pinky Nicole Reason For Exam: Critical Care Management Has Provider Been Notified: Yes Date of Notification: 03/10/24 Time of Notification: 08:22 Extended Comment: Recurrent acute Takotsubo cardiomyopathy; stable Consult to Cardiac Rehabilitation Routine Comment: Physician Instructions: Reason for Consult: Patient Education 03/11/24 08:47 PT [Consult to Physical Therapy] Routine Comment: Physician Instructions: Consult to PT for:: Evaluation and Treat Extended Comment: evaluate and treat Discharge Diagnosis (1) Acute coronary syndrome: (2) Takotsubo cardiomyopathy: (3) Advancing dementia: (4) Anxiety: (5) Hypertension: Final Diagnosis Final Discharge Diagnosis: Acute Takotsubo cardiomyopathy, Advancing dementia Hypotension Summary Hospital Course Hospital course: 88-year-old female with advancing dementia, previous history of Takotsubo cardiomyopathy 2 years ago presents again with acute Takotsubo cardiomyopathy with minimal coronary artery disease, apical ballooning syndrome, severe LV dysfunction. She had persistent soft blood pressure/hypotension and was unable to be initiated on GDMT. Patient requests to go home with home health and her daughter. She will follow-up with cardiology and primary care on outpatient basis for further advancement of her therapies as allowable Condition Condition at Discharge: Stable Status at Discharge Functional status at discharge: uses cane/walker Overall status at discharge: patient is back to baseline Time Spent with Patient Time spent providing/coordinating discharge services (# min): 30 Surgeries and Procedures Operation Date: 03/09/24 21:45 Actual Procedures p CL LHC & COR Angio - Everett Lawson DO Complications Complications: None Discharge Plan Discharge Plan Patient Disposition: Home Health Services Activity: Ambulate as Tolerated Diet: Regular Additional Instructions: 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 1. You were given conscious sedation. Do not operate a vehicle, power tools, make important decisions, or drink alcohol for 24 hours. You might be drowsy orlight headed. Return to the Emergency Room if you have trouble breathing, walking or nausea and vomiting. 2. FOR BLEEDING: Apply continuous pressure to the site and call 911. 3. Operative Site Care: Keep the dressing clean and dry. You may change the dressing only if soiled or wet. You may remove the dressing the following morning. You may wash over the puncture site in the shower. If the puncture site is at the wrist no soaking for 3 days. Some bruising or slight swelling may be present. -Signs of infection are redness, warmth, swelling, getting more sore, colored drainage, fever or chills. -Should the arm or leg become cold, numb, blue or white, call the assistant program manager immediately. 4. ACTIVITY: You are advised to go directly home from the hospital. Restrict your activities for the rest of the day. Resume light or normal activities tomorrow. Do not engage in any activity that will stress the puncture site. Avoid heavy lifting (over 15 lbs.), straining or bending at the catheter site for 48 hours after discharge. If the puncture site is at the wrist do not manipulate wrist for 24 hours and no lifting more than 3 lbs for 3 days. 5. DIET:You may eat your regular diet when you desire. 6. MEDICATIONS: Resume your daily prescription schedule. Prescriptions may be sent with you if needed. Use as directed. When taking pain medications, you may experience dizziness or drowsiness. Do not drink alcohol or drive when taking pain medications. 7. If you should experience episodes of angina e.g. chest discomfort, heaviness, tightness, pressure, burning, with or without radiation to the neck, jaws, arms, or back- Use 1 Nitrostat under your tongue every 5-10 minutes, and up to 3 tablets. If no relief- Call 911 and go to the nearest Emergency Room. -Notify the office for recurrent angina, chest pain or other concerns. You may NOT drive yourself home! Follow the medication instructions provided on your discharge. If the dosages and instructions on this sheet differ from the dosage and instructions on the bottle, follow the instructions on the bottle. [facility] is not responsible for incorrect prescription information provided by thepatient during their visit. Do not stop your medications without consulting your health care provider. Please take the list with you to your next doctor's appointment. Instructions: Cardiomyopathy (DC), Know your Meds Prescriptions: New magnesium oxide 400 mg (241.3 mg magnesium) Tablet 400 mg PO BID 30 Days Qty: 60 12RF amoxicillin 500 mg Capsule 500 mg PO Q12H 4 Days Qty: 8 0RF Continued citalopram 40 mg tablet See Rx Instructions .ROUTE .COMPLEX Qty: 30 3RF Dose Instruction: TAKE ONE TABLET BY MOUTH DAILY Rx Instructions: TAKE ONE TABLET BY MOUTH DAILY hydroxyzine HCl 25 mg tablet See Rx Instructions .ROUTE .COMPLEX Qty: 90 3RF Dose Instruction: TAKE ONE TABLET BY MOUTH THREE TIMES A DAY NEEDED FOR ANXIETY Rx Instructions: TAKE ONE TABLET BY MOUTH THREE TIMES A DAY NEEDED FOR ANXIETY sumatriptan succinate 100 mg tablet 100 mg PO DAILY PRN (Reason: Headache) omega 9-uqz-bmy-fish oil 1,000 mg (120 mg-180 mg) capsule 2 cap PO DAILY Patient Comments: TAKE 2 CAPSULES BY MOUTH EVERY DAY alprazolam [Xanax] 0.25 mg Tablet 0.25 mg PO QHS PRN (Reason: Anxiety) aspirin 81 mg Tablet,Delayed Release (Dr/Ec) 81 mg PO DAILY Qty: 0 0RF memantine 10 mg tablet 10 mg PO BID Discontinued spironolactone 25 mg Tablet 12.5 mg PO DAILY 30 Days Qty: 15 12RF losartan 25 mg Tablet 25 mg PO QAM 30 Days Qty: 30 12RF Other Ambulatory Orders: Initiate Home Health (Routine) Timeframe: [id number] Location: Determined by Patient Ordered By: Everett Lawson Follow Up: Esteban Pineda APRN [Nurse Practitioner] - 03/21/24 11:00 am (CHRONIC DISEASE MANAGER for Dr Lawson @ [facility]) Exam Physical Exam Vital Signs: Temp Pulse Resp BP Pulse Ox O2 Del Method O2 Flow Rate 97.4 F L 73 14 107/62 94 L Room Air 1 03/13/24 20:00 03/13/24 20:00 03/13/24 20:00 03/13/24 20:00 03/13/24 20:00 03/14/24 08:00 03/12/24 03:00 Const General: cooperative Nutritional Appearance: thin Orientation: alert and awake HEENT Head: normal to inspection Neck Neck: normal visual inspection Chest Chest palpation & inspection: normal inspection of the chest Resp Effort & Inspection: normal respiratory effort Auscultation: clear to auscultation bilaterally Cardio Rate: regular rate Rhythm: regular rhythm Heart Sounds: S1 normal and S2 normal Pulses: radial pulses present and femoral pulses present GI Palpation: soft Skin General: no rashes or lesions noted Neuro General: patient alert, patient awake and patient oriented x3 Cognition: abnormal cognition Speech: speech normal Extrem General: no clubbing, cyanosis or edema Psych Mood: anxious mood Diagnostic Studies Completed and Pending Studies Labs on day of discharge: 03/14/24 07:17: PHA Creatinine Clear 30.32, Sodium 139, Potassium 3.6, Chloride 107, Carbon Dioxide 26.4, Anion Gap 9.2, BUN 27 H, Creatinine 1.09, Est GFR (CKD-EPI) 49.475, Glucose 93, Calcium 8.8 Documented By: Everett Lawson DO 03/14/24 1237 Signed By: <Electronically signed by Everett Lawson DO> 03/14/24 1239 [facility] Work Phone: Evaluation note* Diagnosis Unilateral weakness- Primary documented in this encounter [facility]No [facility] [employer] Other Evaluation note* Diagnosis 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 Arthritis of carpometacarpal (CMC) joint of left thumb Arthritis of wrist, left Unspecified arthropathy, forearm [facility] Work Phone: Evaluation note* Diagnosis Onset Date Resolution Status Advancing dementia acute Anxiety acute Bilateral arm pain acute Acute coronary syndrome acut e Advancing dementia acute Takotsubo cardiomyopathy acu [facility] Work Phone: Evaluation note* Diagnosis Onset Date Resolution Status Advancing dementia acute Anxiety acute Bilateral arm pain acute Acute coronary syndrome acut e Advancing dementia acute Anxiety acute Hypertension acute Takotsubo cardiomyopathy acu [facility] Work Phone: Evaluation note* Diagnosis Takotsubo syndrome- Primary BMI 23.0-23.9, adult documented in this encounter [facility] Work Phone: Evaluation note* Diagnosis Onset Date Resolution Status Advancing dementia acute Anxiety acute Bilateral arm pain acute Advancing dementia acute Anxiety acute Hypertension acute ST elevation MS (STEMI) acut e Takotsubo cardiomyopathy acu te Acute coronary syndrome reso lved Depression acute Hair loss acute Hypertension acute Hypomagnesemia acute UTI (urinary tract infection) acute [facility] Work Phone: History general Narrative - Reported* Type Description Date Medical History hypertension Medical History hyperlipidemia Surgical History appendectomy Surgical History cholecystectomy Surgical History hysterectomy Surgical History hernia repair Surgical History urethral dilation and cystoscop y Surgical History cataracts Hospitalization History abdominal pain [email or web address] Other Progress note Author Aj tyler [facility] March 10, 2024 4:02pm Note Date/Time March 10, 2024 3:58p m [facility] [address] [place] [address] Cardiology Progress Note Signed with Addenda Patient: Milind Tate MR#: [id number] : 1935 Acct:[id number] Age/Sex: 88 / F Adm Date: 4 Loc: Room: [address] [place] [address] Type: ADM IN Attending Dr: Everett Lawson DO Copies to: ~ ADDENDUM1 Physical Exam: General: NAD, A&Ox3, Elderly Head, Eyes: NC/AT, EOMI Lungs: Good air entry; No crackles Heart: S1S2 normal, Regular rhythm, No murmurs Extremities: No edema. Abdomen: Soft, non-tender, non-distended. Neuro: CN grossly intact, No focal deficits. Addendum Documented By: Aj Smith MD 03/10/241601 Addendum Signed By: <Electronically signed by Aj Smith MD> 03/10/24 160 Date of Service: 03/10/2024 Subjective Principal diagnosis: Takotsubo CMP Interval history: No complaints Just got out of bed for the first time this afternoon. BP is hypotensive although she is asymptomatic. I discussed with her that it makes sense to monitor her some more today. Exam Physical Exam Vital Signs: Temp Pulse Resp BP Pulse Ox O2 Del Method O2 Flow Rate 98 F 77 20 88/50 L 97 Room Air 1 03/10/24 12:00 03/10/24 15:00 03/10/24 15:00 03/10/24 15:00 03/10/24 15:00 03/10/24 15:00 03/10/24 08:00 Objective Labs 03/09/24 21:00 03/10/24 04:44 Labs: Laboratory Results - last 24 hr 03/09/24 03/09/24 03/10/24 21:00 23:00 01:40 Corrected WBC 11.8 H Uncorrected WBC Count 11.8 H RBC 4.34 Hgb 13.3 Hct 39.9 MCV 92.0 MCH 30.7 MCHC 33.4 RDW 13.6 Plt Count 248 MPV 7.0 Neut % (Auto) 54.7 Lymph % (Auto) 35.7 [place] % (Auto) 7.5 Eos % (Auto) 1.2 Baso % (Auto) 0.9 Nucleat RBC Rel Count 0.1 Neut # (Auto) 6.5 Lymph # (Auto) 4.2 [place] # (Auto) 0.9 H Eos # (Auto) 0.1 Baso # (Auto) 0.1 Monocyte Dist Width 19.33 PT 10.9 INR 0.9 APTT 27.9 PHA Creatinine Clear 27.07 Sodium 136 Potassium 3.6 Chloride 105 Carbon Dioxide 20.9 L Anion Gap 13.7 BUN 25 Creatinine 1.25 H Est GFR (CKD-EPI) 41.976 Glucose 126 H Calcium 9.5 Total Bilirubin 0.4 AST 24 ALT 12 Alkaline Phosphatase 71 Total Creatine Kinase 71 Troponin I High Sens 1446.7 H* 6642.4 H* 7199.8 H* B-Natriuretic Peptide 57.0 Total Protein 6.5 Albumin 4.0 Globulin 2.5 Albumin/Globulin Ratio 1.6 03/10/24 03/10/24 04:44 06:56 Corrected WBC Uncorrected WBC Count RBC Hgb Hct MCV MCH MCHC RDW Plt Count MPV Neut % (Auto) Lymph % (Auto) [place] % (Auto) Eos % (Auto) Baso % (Auto) Nucleat RBC Rel Count Neut # (Auto) Lymph # (Auto) [place] # (Auto) Eos # (Auto) Baso # (Auto) Monocyte Dist Width PT INR APTT PHA Creatinine Clear 26.97 Sodium 136 Potassium 5.1 D Chloride 102 Carbon Dioxide 25.7 Anion Gap 13.4 BUN 23 Creatinine 1.13 Est GFR (CKD-EPI) 47.381 Glucose 133 H Calcium 9.3 Total Bilirubin AST ALT Alkaline Phosphatase Total Creatine Kinase Troponin I High Sens 7730.0 H* 8379.9 H* B-Natriuretic Peptide Total Protein Albumin Globulin Albumin/Globulin Ratio A&P - Cardiology (1) Advancing dementia: Code(s): F03.90 - Unspecified dementia, unspecified severity, without behavioral disturbance, psychotic disturbance, mood disturbance, and anxiety (2) Takotsubo cardiomyopathy: Assessment/Problem Details: Patient presents with recurrent Takotsubo cardiomyopathy Code(s): I51.81 - Takotsubo syndrome (3) Acute coronary syndrome: Code(s): I24.9 - Acute ischemic heart disease, unspecified Plan Continue GDMT Will give 0.5L bolus due to borderline BPs Monitor today. Ambulate ad porsha. Plan to D/c tomorrow Documented By: Aj Smith MD 02/21 Signed By: <Electronically signed by Aj Smith MD> 03/10/24 7051 [facility] Work Phone: Progress note Author Aj tyler [facility] March 11, 2024 7:55pm Note Date/Time March 11, 2024 9:22a m [facility] [address] [place] [address] Cardiology Progress Note Signed with Addenda Patient: Milind Tate MR#: [id number] : 1935 Acct:[id number] Age/Sex: 88 / F Adm Date: 4 Loc: Room: [address] [place] [address] Type: ADM IN Attending Dr: Everett Lawson DO Copies to: ~ ADDENDUM1 Addendum: - Per PT recommendation, will plan for discharge to SNF when possible. Work withcase management to get SNF placement. Addendum Documented By: Aj Smith MD 03/11/241954 Addendum Signed By: <Electronically signed by Aj Smith MD> 03/11/241954 Date of Service: 03/11/2024 Subjective Principal diagnosis: Takotsubo CMP Interval history: No complaints. She wants to go home. She has been borderline hypotensive but stable at that blood pressure and has no symptoms of lightheadedness, dizziness or syncope. However she has not been up out of bed without support and she wouldbe going back home to an assisted living facility with no direct assistance. Therefore will get physical therapy to evaluate her and provide us with discharge disposition recommendations. Exam Physical Exam Vital Signs: Temp Pulse Resp BP Pulse Ox O2 Del Method O2 Flow Rate 98.1 F 58 L 14 84/50 L 95 Nasal Cannula 2 03/11/24 04:00 03/11/24 07:00 03/11/24 07:00 03/11/24 07:00 03/11/24 07:00 03/11/24 07:00 03/11/24 07:00 Narrative: Physical Exam: General: NAD, A&Ox3, Cooperative Head, Eyes: NC/AT, EOMI Lungs: Good air entry; No crackles/rhonchi/wheezes Heart: S1S2 normal, Regular rhythm, No murmurs/rubs/gallop, No JVD Extremities: No edema. Abdomen: Soft, non-tender, non-distended. Neuro: CN grossly intact, No focal deficits. Psych: Normal mood & affect. Objective Labs 03/09/24 21:00 03/11/24 04:34 Labs: Laboratory Results - last 24 hr 03/10/24 03/11/24 22:42 04:34 PHA Creatinine Clear 24.38 Sodium 137 Potassium 4.1 Chloride 104 Carbon Dioxide 26.6 Anion Gap 10.5 BUN 28 H Creatinine 1.25 H Est GFR (CKD-EPI) 41.976 Glucose 114 H Calcium 8.7 Urine Color Yellow Urine Appearance Cloudy A Urine pH 5.5 Ur Specific [place] 1.031 H Urine Protein Negative Urine Glucose (UA) Normal Urine Ketones Negative Urine Occult Blood Negative Urine Nitrite Positive H Urine Bilirubin Negative Urine Urobilinogen Normal Ur Leukocyte Esterase 2+ H Urine RBC 3-4 Urine WBC 5-9 H Ur Squamous Epith Cells 1-2 Urine Bacteria 4+ H Hyaline Casts 0-8 A&P - Cardiology (1) Advancing dementia: Code(s): F03.90 - Unspecified dementia, unspecified severity, without behavioral disturbance, psychotic disturbance, mood disturbance, and anxiety (2) Takotsubo cardiomyopathy: Assessment/Problem Details: Patient presents with recurrent Takotsubo cardiomyopathy Code(s): I51.81 - Takotsubo syndrome (3) Acute coronary syndrome: Code(s): I24.9 - Acute ischemic heart disease, unspecified Plan She has severe cardiomyopathy 15-20% with borderline blood pressures and will not be able to tolerate GDMT medications. These may be introduced as outpatient if her blood pressure returns to normal. I have spoken to her primary assistant program manager this morning, Dr. Lawson, who agrees with the plan above. Monitor today. Ambulate ad porsha. Will get physical therapy to evaluate for discharge recommendations. See subjective above. Plan to D/c today if feasible. Follow-up with Dr. Lawson as outpatient in 1-2 weeks. Documented By: Aj Smith MD 02/21 Signed By: <Electronically signed by Aj Smith MD> 03/11/24 0929 [facility] Work Phone: Progress note Author Pinky Nicole [facility] March 11, 2024 2:35pm Note Date/Time March 11, 2024 2:33p m [facility] [address] [place] [address] Pulmonology Progress Note Signed Patient: Milind Tate MR#: [id number] : 1935 Acct:[id number] Age/Sex: 88 / F Adm Date: 4 Loc: Room: [id number] Type: ADM IN Attending Dr: Everett Lawson DO Copies to: ~ Date of Service: 03/11/2024 Subjective Subjective Narrative: She denies chest pain, no shortness of breath. She is on nasal cannula she doesnot have home oxygen. She denies abdominal pain. Urine culture were sent yesterday and pending Exam Physical Exam Vital Signs: Temp Pulse Resp BP Pulse Ox O2 Del Method O2 Flow Rate 98.5 F 66 18 83/53 L 93 L Nasal Cannula 3 03/11/24 12:00 03/11/24 14:00 03/11/24 14:00 03/11/24 14:00 03/11/24 14:00 03/11/24 14:00 03/11/24 14:00 Narrative: General awake and alert no distress HEENT clear oropharynx Cardiovascular regular rate, normal S1-S2 Lungs clear to auscultation Abdomen soft nontender Extremity no edema Neuro nonfocal Objective Intake and Output I&O - Last 24 Hours: Intake & Output 03/10/24 03/11/24 03/11/24 23:59 07:59 15:59 Intake Total 472 / 832 200 / 200 Output Total 120 / 120 Balance 352 / 712 200 / 200 Weight 57.1 kg Labs 03/09/24 21:00 03/11/24 04:34 Assessment/Plan Assessment/Plan (1) Acute coronary syndrome: Plan: Left heart catheterization no coronary artery occlusion, she is on Plavix. Cardiology is following (2) Takotsubo cardiomyopathy: (3) Advancing dementia: (4) Anxiety: (5) Hypertension: Plan Patient is followed by cardiology for Takotsubo ejection fraction is reduced 20% Discussed with RN to wean off oxygen as tolerated and evaluate need for home oxygen prior to discharge. Her chest x-ray on presentation was negative She is on her home medications for dementia/anxiety Urine cultures were sent yesterday pending PT/OT evaluation for discharge planning per cardiology Documented By: Pinky Nicole MD 03/11/241431 Signed By: <Electronically signed by Pinky Nicole MD> 03/11/24 1436 [facility] Work Phone: Progress note Author Everett Lawson [facility] March 12, 2024 11:09am Note Date/Time March 12, 2024 11:09 am [facility] [address] [place] [address] Cardiology Progress Note Signed Patient: Milind Tate MR#: [id number] : 1935 Acct:[id number] Age/Sex: 88 / F Adm Date: 4 Loc: Room: [address] [place] [address] Type: ADM IN Attending Dr: Everett Lawson DO Copies to: ~ Date of Service: 03/12/2024 Subjective Principal diagnosis: Takotsubo CMP Interval history: No complaints. She wants to go home. She has been borderline hypotensive but stable at that blood pressure and has no symptoms of lightheadedness, dizziness or syncope. However she has not been up out of bed without support and she wouldbe going back home to an assisted living facility with no direct assistance. Therefore will get physical therapy to evaluate her and provide us with discharge disposition recommendations. Interim evaluation 03/12/2024: Stable from a cardiovascular standpoint with soft blood pressures, GDMT unable to be advanced due to soft blood pressures. Patient appears mildly demented and depressed, wants to go home. QT interval prolonged at over 500 ms. Will initiate magnesium oxide 400 twice daily proactively. Exam Physical Exam Vital Signs: Temp Pulse Resp BP Pulse Ox O2 Del Method O2 Flow Rate 98.1 F 65 16 106/57 L 95 Room Air 1 03/12/24 08:00 03/12/24 09:00 03/12/24 09:00 03/12/24 09:00 03/12/24 09:00 03/12/24 09:00 03/12/24 03:00 Const General: cooperative and in distress mild Nutritional Appearance: thin Orientation: alert, awake and oriented x3 HEENT Head: normal to inspection Neck Neck: normal visual inspection Chest Chest palpation & inspection: normal inspection of the chest Resp Effort & Inspection: normal respiratory effort Auscultation: clear to auscultation bilaterally Cardio Rate: regular rate Rhythm: regular rhythm Heart Sounds: S1 normal and S2 normal Pulses: radial pulses present and femoral pulses present GI Palpation: soft Skin General: no rashes or lesions noted Neuro General: patient alert, patient awake and patient oriented x3 Cognition: abnormal cognition Speech: speech normal Extrem General: no clubbing, cyanosis or edema Psych Mood: anxious mood Objective Labs 03/09/24 21:00 03/12/24 04:48 Labs: Laboratory Results - last 24 hr 03/12/24 04:48 PHA Creatinine Clear 27.70 Sodium 137 Potassium 3.8 Chloride 106 Carbon Dioxide 25.4 Anion Gap 9.4 BUN 29 H Creatinine 1.10 Est GFR (CKD-EPI) 48.936 Glucose 86 Calcium 8.6 A&P - Cardiology (1) Advancing dementia: Code(s): F03.90 - Unspecified dementia, unspecified severity, without behavioral disturbance, psychotic disturbance, mood disturbance, and anxiety (2) Takotsubo cardiomyopathy: Assessment/Problem Details: Patient presents with recurrent Takotsubo cardiomyopathy Code(s): I51.81 - Takotsubo syndrome (3) Acute coronary syndrome: Code(s): I24.9 - Acute ischemic heart disease, unspecified Plan She has severe cardiomyopathy 15-20% with borderline blood pressures and will not be able to tolerate GDMT medications. These may be introduced as outpatient if her blood pressure returns to normal. I have spoken to her primary assistant program manager this morning, Dr. Lawson, who agrees with the plan above. Monitor today. Ambulate ad porsha. Will get physical therapy to evaluate for discharge recommendations. See subjective above. Discharge when possible per physical therapy/Occupational Therapy or acceptance to rehab Documented By: Everett Lawson DO 03/12/241106 Signed By: <Electronically signed by Everett Lawson DO> 03/12/24 1109 [facility] Work Phone: Progress note Author Kartik Vilchis [facility] March 12, 2024 11:50am Note Date/Time March 12, 2024 11:50 am [facility] [address] [place] [address] Pulmonology Progress Note Signed Patient: Milind Tate MR#: [id number] : 1935 Acct:[id number] Age/Sex: 88 / F Adm Date: 4 Loc: Room: [address] [place] [address] Type: ADM IN Attending Dr: Everett Lawson DO Copies to: ~ Date of Service: 03/12/2024 Subjective Subjective Narrative: Patient has no complaints of chest pain or dyspnea. She knows she is at [facility] but is unaware of the city nor year. Exam Physical Exam Vital Signs: Temp Pulse Resp BP Pulse Ox O2 Del Method O2 Flow Rate 98.1 F 67 16 102/58 L 96 Room Air 1 03/12/24 11:42 03/12/24 11:42 03/12/24 11:42 03/12/24 11:42 03/12/24 11:42 03/12/24 11:42 03/12/24 03:00 Const General: cooperative Orientation: alert and awake HEENT Head: normal to inspection Ears: hearing grossly normal bilaterally and external ears normal Nose: external nose normal Face and sinus: normal facial exam Mouth: oral mucosae normal Eyes Sclera: sclerae normal Neck Neck: normal visual inspection Resp Effort & Inspection: normal respiratory effort Auscultation: clear to auscultation bilaterally, diminished lung sounds, no rales, no rhonchi and no wheezes Cardio Rate: regular rate Rhythm: regular rhythm Heart Sounds: S1 normal, S2 normal and no murmurs GI Inspection: normal to inspection Palpation: soft and nontender General: deferred Skin General: no rashes or lesions noted (Warm and dry) Extrem General: no pedal edema Objective Intake and Output I&O - Last 24 Hours: Intake & Output 03/11/24 03/12/24 03/12/24 23:59 07:59 15:59 Intake Total 222 / 662 0 / 0 Output Total 0 / 1 Balance 222 / 661 0 / 0 Weight 125 lb 7.088 oz Labs 03/09/24 21:00 03/12/24 04:48 Microbiology Micro: Microbiology 3 03/10/24 22:42 Urine Culture - Preliminary Clean Void Midstream Gram Negative Bacilli Gram Negative Bacilli#2 Assessment/Plan Assessment/Plan (1) Acute coronary syndrome: (2) Takotsubo cardiomyopathy: (3) Advancing dementia: (4) Anxiety: (5) Hypertension: Plan Hospital day #3 for patient with remote history of E. coli UTI with gram- negative bacilli x 2 from clean-catch urine. Culture results are pending with patient having multiple allergies including cephalosporins, fluoroquinolones, Bactrim, and nitrofurantoin. Patient's primary concern is recurrent Takotsubo'scardiomyopathy. She is stable from a respiratory perspective. I have little torecommend. We will follow remotely while in the ICU. We will follow-up on urine culture results. Documented By: Kartik Vilchis MD 4 1146 Signed By: <Electronically signed by MD Kartik Vilchis> 03/12/24 2710 [facility] Work Phone: Progress note Author W Renny [facility] March 13, 2024 11:47am Note Date/Time March 13, 2024 11:47 am [facility] [address] [place] [address] Cardiology Progress Note Signed Patient: Milind Tate MR#: [id number] : 1935 Acct:[id number] Age/Sex: 88 / F Adm Date: 4 Loc: Room: [address] [place] [address] Type: ADM IN Attending Dr: Everett Lawson DO Copies to: ~ Date of Service: 03/13/2024 Subjective Principal diagnosis: Takotsubo CMP Interval history: No complaints. She wants to go home. She has been borderline hypotensive but stable at that blood pressure and has no symptoms of lightheadedness, dizziness or syncope. However she has not been up out of bed without support and she wouldbe going back home to an assisted living facility with no direct assistance. Therefore will get physical therapy to evaluate her and provide us with discharge disposition recommendations. Interim evaluation 03/12/2024: Stable from a cardiovascular standpoint with soft blood pressures, GDMT unable to be advanced due to soft blood pressures. Patient appears mildly demented and depressed, wants to go home. QT interval prolonged at over 500 ms. Will initiate magnesium oxide 400 twice daily proactively. Interim evaluation 03/13/2024: Stable from a cardiovascular standpoint without arrhythmia, heart failure. Patient be discharged back to home with daughter or ECF from cardiology standpoint Exam Physical Exam Vital Signs: Temp Pulse Resp BP Pulse Ox O2 Del Method O2 Flow Rate 97.8 F 68 18 133/71 95 Room Air 1 03/13/24 08:00 03/13/24 08:00 03/13/24 08:00 03/13/24 08:00 03/13/24 08:00 03/13/24 08:00 03/12/24 03:00 Const General: cooperative and in distress mild Nutritional Appearance: thin Orientation: alert, awake and oriented x3 HEENT Head: normal to inspection Neck Neck: normal visual inspection Chest Chest palpation & inspection: normal inspection of the chest Resp Effort & Inspection: normal respiratory effort Auscultation: clear to auscultation bilaterally Cardio Rate: regular rate Rhythm: regular rhythm Heart Sounds: S1 normal and S2 normal Pulses: radial pulses present and femoral pulses present GI Palpation: soft Skin General: no rashes or lesions noted Neuro General: patient alert, patient awake and patient oriented x3 Cognition: abnormal cognition Speech: speech normal Extrem General: no clubbing, cyanosis or edema Psych Mood: anxious mood Objective Labs 03/09/24 21:00 03/13/24 04:46 Labs: Laboratory Results - last 24 hr 03/13/24 04:46 PHA Creatinine Clear 28.75 Sodium 141 Potassium 3.7 Chloride 106 Carbon Dioxide 25.4 Anion Gap 13.3 BUN 25 Creatinine 1.06 Est GFR (CKD-EPI) 51.160 Glucose 91 Calcium 8.5 L A&P - Cardiology (1) Advancing dementia: Code(s): F03.90 - Unspecified dementia, unspecified severity, without behavioral disturbance, psychotic disturbance, mood disturbance, and anxiety (2) Takotsubo cardiomyopathy: Assessment/Problem Details: Patient presents with recurrent Takotsubo cardiomyopathy Code(s): I51.81 - Takotsubo syndrome (3) Acute coronary syndrome: Code(s): I24.9 - Acute ischemic heart disease, unspecified Plan Cleared by cardiology for discharge Documented By: Everett Lawson DO 03/13/24 1145 Signed By: <Electronically signed by Everett Lawson DO> 03/13/24 1147 [facility] Work Phone: Progress note Author Kartik Vilchis [facility] March 13, 2024 1:21pm Note Date/Time March 13, 2024 1:20p m [facility] [address] [place] [address] Pulmonology Progress Note Signed Patient: Milind Tate MR#: [id number] : 1935 Acct:[id number] Age/Sex: 88 / F Adm Date: 4 Loc: Room: 6D8477-1 Type: ADM IN Attending Dr: Everett Lawson DO Copies to: ~ Date of Service: 03/13/2024 Subjective Subjective Narrative: Patient is sleeping at the time of my evaluation. There were no issues per nursing staff overnight. Note 2 different species of E. coli 1 of which with over 100,000 CFU's from urine. Exam Physical Exam Vital Signs: Temp Pulse Resp BP Pulse Ox O2 Del Method O2 Flow Rate 97.8 F 68 18 133/71 95 Room Air 1 03/13/24 08:00 03/13/24 08:00 03/13/24 08:00 03/13/24 08:00 03/13/24 08:00 03/13/24 08:00 03/12/24 03:00 HEENT Head: normal to inspection Ears: hearing grossly normal bilaterally and external ears normal Nose: external nose normal Face and sinus: normal facial exam Mouth: oral mucosae normal Eyes Sclera: sclerae normal Neck Neck: normal visual inspection Resp Effort & Inspection: normal respiratory effort Auscultation: clear to auscultation bilaterally, diminished lung sounds, no rales, no rhonchi and no wheezes Cardio Rate: regular rate Rhythm: regular rhythm Heart Sounds: S1 normal, S2 normal and no murmurs GI Inspection: normal to inspection Palpation: soft and nontender General: deferred Skin General: no rashes or lesions noted (Warm and dry) Extrem General: no pedal edema Objective Intake and Output I&O - Last 24 Hours: Intake & Output 03/12/24 03/13/24 03/13/24 23:59 07:59 15:59 Intake Total 180 / 540 120 / 120 Output Total 300 / 300 Balance -120 / 240 120 / 120 Weight 129 lb 3.054 oz Labs 03/09/24 21:00 03/13/24 04:46 Microbiology Micro: Microbiology 3 03/10/24 22:42 Urine Culture - Final Clean Void Midstream Escherichia coli Escherichia coli#2 03/13/24 08:45 Stool Lactoferrin - Final Stool Assessment/Plan Assessment/Plan (1) Acute coronary syndrome: (2) Takotsubo cardiomyopathy: (3) Advancing dementia: (4) Anxiety: (5) Hypertension: Plan Hospital day #4 for patient with remote history of E. coli UTI with gram- negative bacilli x 2 from clean-catch urine. Culture results are pending with patient having multiple allergies including cephalosporins, fluoroquinolones, Bactrim, and nitrofurantoin. Patient's primary concern is recurrent Takotsubo'scardiomyopathy. Case was discussed with NO in regards to urinary tract infection. I do not believe that the patient is a appropriate historian to be able to tell me if she is symptomatic from her UTI. The other concern is her multiple drug allergies. After discussion with pharmacy patient was given a course of amoxicillin and will plan to give her 5 days of therapy and observe asshe awaits placement. Otherwise, I have no new recommendations. Documented By: Kartik Vilchis MD 4 [id number] Signed By: <Electronically signed by MD Kartik Vilchis> 03/13/24 1321 [facility] Work Phone: Progress note Author Kartik Vilchis [facility] March 14, 2024 6:18pm Note Date/Time March 14, 2024 8:41a m [facility] [address] [place] [address] Pulmonology Progress Note Signed Patient: Milind Tate MR#: [id number] : 1935 Acct:[id number] Age/Sex: 88 / F Adm Date: 4 Loc: Room: 0P9617-6 Type: DIS IN Attending Dr: Everett Lawson DO Copies to: ~ Date of Service: 03/14/2024 Subjective Subjective Narrative: Patient tolerated ampicillin for UTI without reported difficulty. She did have some diarrhea which she had been having even before initiation of antibiotics. Exam Physical Exam Vital Signs: Temp Pulse Resp BP Pulse Ox O2 Del Method O2 Flow Rate 97.4 F L 73 14 107/62 94 L Room Air 1 03/13/24 20:00 03/13/24 20:00 03/13/24 20:00 03/13/24 20:00 03/13/24 20:00 03/13/24 23:54 03/12/24 03:00 Const General: cooperative Orientation: alert and awake HEENT Head: normal to inspection Ears: hearing grossly normal bilaterally and external ears normal Nose: external nose normal Face and sinus: normal facial exam Mouth: oral mucosae normal Eyes Sclera: sclerae normal Neck Neck: normal visual inspection Resp Effort & Inspection: normal respiratory effort Auscultation: clear to auscultation bilaterally, diminished lung sounds, no rales, no rhonchi and no wheezes Cardio Rate: regular rate Rhythm: regular rhythm Heart Sounds: S1 normal, S2 normal and no murmurs GI Inspection: normal to inspection Palpation: soft and nontender General: deferred Skin General: no rashes or lesions noted (Warm and dry) Extrem General: no pedal edema Objective Intake and Output I&O - Last 24 Hours: Intake & Output 03/13/24 03/14/24 03/14/24 23:59 07:59 15:59 Intake Total 342 / 582 0 / 0 Balance 342 / 582 0 / 0 Weight 127 lb 10.362 oz Labs 03/09/24 21:00 03/14/24 07:17 Microbiology Micro: Microbiology 3 03/10/24 22:42 Urine Culture - Final Clean Void Midstream Escherichia coli Escherichia coli#2 03/13/24 08:45 Stool Lactoferrin - Final Stool Assessment/Plan Assessment/Plan (1) Acute coronary syndrome: (2) Takotsubo cardiomyopathy: (3) Advancing dementia: (4) Anxiety: (5) Hypertension: Plan Hospital day #5 for patient with remote history of E. coli UTI x2 2 from clean- catch urine with patient tolerating amoxicilliin with multiple allergies and adverse reactions listed with patient having dementia with unreliable history from patient. Patient was given written prescription for amoxicillin with plan for a total of 5 days of treatment. Patient does not have Ashby catheter. Patient is stable for discharge from a pulmonary/critical care medicine perspective. Documented By: Kartik Vilchis MD 4 [id number] Signed By: <Electronically signed by MD Kartik Vilchis> 03/14/24 6962 [facility] Work Phone: Summary Purpose Family History No Family History Records FoundUnknown Family Member Name Dates Details Family history of hyperlipid emia: Mother(V18.19, Z83.438) Status:Active Family history of rheumatoid arthritis: Mother(V17.7, Z82.61) Status:Active Family history of throat can cer: Father(V16.0, Z80.0) Status:Active Family history of myocardial infarction: Brother(V17.3, Z82.49) Status:Active Unknown Family Member Name Dates Details Family history of hyperlipid emia: Mother(V18.19, Z83.438) Status:Active Family history of rheumatoid arthritis: Mother(V17.7, Z82.61) Status:Active Family history of throat can cer: Father(V16.0, Z80.0) Status:Active Family history of myocardial infarction: Brother(V17.3, Z82.49) Status:Active Unknown Family Member Name Dates Details Family history of myocardial infarction: Brother(V17.3, Z82.49) Status:Active Family history of throat can cer: Father(V16.0, Z80.0) Status:Active Family history of rheumatoid arthritis: Mother(V17.7, Z82.61) Status:Active Family history of hyperlipid emia: Mother(V18.19, Z83.438) Status:Active Unknown Family Member Name Dates Details Family history of myocardial infarction: Brother(V17.3, Z82.49) Status:Active Family history of throat can cer: Father(V16.0, Z80.0) Status:Active Family history of rheumatoid arthritis: Mother(V17.7, Z82.61) Status:Active Family history of hyperlipid emia: Mother(V18.19, Z83.438) Status:Active Unknown Family Member Name Dates Details Family history of hyperlipid emia: Mother(V18.19, Z83.438) Status:Active Family history of rheumatoid arthritis: Mother(V17.7, Z82.61) Status:Active Family history of throat can cer: Father(V16.0, Z80.0) Status:Active Family history of myocardial infarction: Brother(V17.3, Z82.49) Status:Active Unknown Family Member Name Dates Details Family history of hyperlipid emia: Mother(V18.19, Z83.438) Status:Active Family history of rheumatoid arthritis: Mother(V17.7, Z82.61) Status:Active Family history of throat can cer: Father(V16.0, Z80.0) Status:Active Family history of myocardial infarction: Brother(V17.3, Z82.49) Status:Active Relationship Condition Age at Onset Recorded Date/T yue grandparent Malignant neoplasm of throat Unknown father Malignant neoplasm of throat Unknown Cerebrovascular accident (CVA) Unknown Not Specified Cerebrovascular accident (CVA) Unknown Relationship Condition Age at Onset Recorded Date/T yue grandparent Malignant neoplasm of throat Unknown father Malignant neoplasm of throat Unknown Cerebrovascular accident (CVA) Unknown Not Specified Cerebrovascular accident (CVA) Unknown father Malignant neoplasm Unknown Unknown History of stroke Unknown family member Unknown Not Specified Unknown Relationship Condition Age at Onset Recorded Date/T yue grandparent Malignant neoplasm of throat Unknown father Malignant neoplasm of throat Unknown Cerebrovascular accident (CVA) Unknown mother Cerebrovascular accident (CVA) Unknown father Malignant neoplasm Unknown Unknown History of stroke Unknown family member Unknown mother Unknown Advance Directives No Advanced Directives Records Found Advance Directive Response Recorded Date/ Time Advance Directives No February 01, 2 019 3:45pm Reason for Referral Specialty Diagnoses / Procedures Referred By Tyree johns Referred To Contact Neurology Diagnoses Unilateral weakness Sara Blake MD [address] [facility] [place] [address] [place] [address] [facility] Sched [place] Referral ID Status Reason Start Date Expiration Date V isits Requested Visits Authorized [id number] Authorized 11/17/2022 11/17/2023 1 1 Reason 01/24/23 @ 1:40 MR I and carotid US pending. Family appropriately concerned for stroke. Request Neurologist w [facility] in [facility]. Diagnosis 1 Unilateral weakness (R53.1) Referral Organization [facility] rustam Referring Provider First Name Sara Referring Provider Last Name Hayden Referring Provider Specialty Family [facility] Referred Organization [facility] Referred Address [address] [place] [id number] Referred Provider Specialty Neurology Referral Priority Routine Referral Appointment Date 2023-01-24 General Notes Ramya Quezada 10:17:43 AM >recieved today, insurance card and [facility] summary notes attached. Waiting on MRI and US to be completed. Faxed referral Ramya Quezada 11/24/2022 09:39:09 AM >faxed first attempt letter Ramya Quezada 12/01/2022 09:18:16 AM >faxed second attempt letter Ramya Quezada 12/02/2022 10:42:11 AM >pt was scheduled 12/01 and cancelled appt. will follow up in one week to see if she reschedules. Ramya Quezada 12/08/2022 11:00:49 AM >01/24/2023 @ 140. [facility] spoke with Milind and she is going to [facility] in [facility] Specialty Diagnoses / Procedures Referred By Tyree johns Referred To Contact Cardiology Diagnoses Takotsubo syndrome Procedures Transthoracic Echo Limited FL ECHO TRANSTHORC R-T 2D W/WO M-MODE REC F-UP/LMTD FL DOP ECHOCARD COLOR FLOW VELOCITY MAPPING FL DOP ECHOCARD PULSE WAVE W/SPECTRAL F-UP/LMTD STD Esteban Pineda, CLINICAL RESOURCE COORDINATOR-LINE PALLETIZER [address] [facility] [address], [address] [place] [id number] Referral ID Status Reason Start Date Expiration Date Visits Requested Visits Authorized [id number] Pending Review Perform Procedure 03/21/2024 03/21/2025 1 1 Specialty Diagnoses / Procedures Referred By Tyree johns Referred To Contact Cardiology Diagnoses Takotsubo syndrome Procedures Follow Up In Cardiology Esteban Pineda, CLINICAL RESOURCE COORDINATOR-LINE PALLETIZER [address] [facility] [address], [address] [place] [address] Ismael Lawson, [address] [facility] [address], [facility] [address] [place] [address] Referral ID Status Reason Start Date Expiration Date V isits Requested Visits Authorized [id number] Authorized 03/21/2024 03/21/2025 1 1 Chief Complaint * MILIND TATE is being seen for a 6 month follow-up of. * 87-year-old female returns for follow-up. She sustained a Takotsubo syndrome April 2022 following the passing of her . She now has normalized left ventricular function by follow-up echo. She has had no recurrent cardiovascular events and remains on appropriate guideline directed medical therapies * She denies chest pain, shortness of breath or edema or hospitalizations * Recommendations, switch metoprolol to tartrate for metoprolol succinate 25 daily, decrease aspirin to 81 mg 3 times a week and follow-up in 1 year. We did explain the potential for recurrence of Takotsubo and anywhere between 10 to 15% and to maintain compliance with current medical therapy * MILIND TATE is being seen for a 6 month follow-up of. * 87-year-old female returns for follow-up. She sustained a Takotsubo syndrome April 2022 following the passing of her . She now has normalized left ventricular function by follow-up echo. She has had no recurrent cardiovascular events and remains on appropriate guideline directed medical therapies * She denies chest pain, shortness of breath or edema or hospitalizations * Recommendations, switch metoprolol to tartrate for metoprolol succinate 25 daily, decrease aspirin to 81 mg 3 times a week and follow-up in 1 year. We did explain the potential for recurrence of Takotsubo and anywhere between 10 to 15% and to maintain compliance with current medical therapy Chief Complaint and Reason for Visit Chief Complaint Check Up Amb Documentation Amb Documentation Amb Documentation Amb Documentation tender arms Chief Complaint tender arms chest pain Reason for Visit Advancing dementia Anxiety Bilateral arm pain Acute coronary syndrome Advancing dementia Takotsubo cardiomyopathy Chief Complaint tender arms chest pain chest pain chest pain Reason for Visit Advancing dementia Anxiety Bilateral arm pain Acute coronary syndrome Advancing dementia Anxiety Hypertension Takotsubo cardiomyopathy Chief Complaint tender arms chest pain chest pain chest pain Amb Documentation strong urine , poss Uti Reason for Visit Advancing dementia Anxiety Bilateral arm pain Advancing dementia Anxiety Hypertension ST elevation MS (STEMI) Takotsubo cardiomyopathy Acute coronary syndrome Depression Hair loss Hypertension Hypomagnesemia UTI (urinary tract infection) Additional Source Comments INFORMATION SOURCE (unrecogn ized section and content) DATE CREATED AUTHOR 02/03/2019 [facility] DATE CREATED AUTHOR AUTHOR'S ORGANIZ ATION 12/09/2021 [facility] DATE CREATED AUTHOR AUTHOR'S ORGANIZ ATION 06/18/2022 [facility] DATE CREATED AUTHOR AUTHOR'S ORGANIZ ATION 11/04/2022 [facility] DATE CREATED AUTHOR AUTHOR'S ORGANIZ ATION 12/30/2022 [facility] DATE CREATED AUTHOR AUTHOR'S ORGANIZ ATION 12/30/2022 [facility] DATE CREATED AUTHOR AUTHOR'S ORGANIZ ATION 02/06/2023 [facility] DATE CREATED AUTHOR AUTHOR'S ORGANIZ ATION 04/08/2023 [facility] DATE CREATED AUTHOR AUTHOR'S ORGANIZ ATION 07/06/2023 [facility] DATE CREATED AUTHOR AUTHOR'S ORGANIZ ATION 03/23/2024 [facility] DATE CREATED AUTHOR AUTHOR'S ORGANIZ ATION 04/23/2024 [facility] REASON FOR VISIT (unrecogniz ed section and content) Reason Comments New Patient Left wrist pain. DOI approx 4m. Pain varies Specialty Diagnoses / Procedures Referred By Tyree johns Referred To Contact Orthopaedics Diagnoses Left wrist pain Sara Blake MD [address] [place] [address] [place] [address] Kahlil Wakefield PA-C [address] [place] [address] [place] [address] Referral ID Status Reason Start Date Expiration Date V isits Requested Visits Authorized [id number] New Request 05/17/2023 06/10/2024 1 1 Reason Comments Follow-up TCM/frmc,Cath/stemi Care Teams (unrecognized sec tion and content) Hematologist Relationship Specialty Start Date End Date Sara Blake MD [address] [place] [address] [place] [address] PCP - General Family Medicine 04/07/23 Team Status: Inactive Member Role Status Dates Sara Blake MD Attending Provider Active Team Status: Active Member Role Status Dates Sara Blake MD Primary Care Provider Active Team Status: Inactive Member Role Status Dates Sara Blake MD Attending Provider Active St art: November 22, 2023 End: November 22, 2023 Team Status: Active Member Role Status Dates Sara Blake MD Primary Care Provider Active Start: December 14, 2023 Narda Franco Attending Provider Active Start: Marilia era 2023 Team Status: Active Member Role Status Dates Sara Blake MD Primary Care Provider Active Start: December 14, 2023 TREVON Le Attending Provider Active Start : December 14, 2023 Team Status: Active Member Role Status Dates Sara Blake MD Primary Care Provider Active Start: December 16, 2023 TREVON Le Attending Provider Active Start : December 16, 2023 Team Status: Inactive Member Role Status Dates Sara Blake MD Primary Care Provide r, Attending Provider Active Start: February 09, 2024 End: February 09, 2024 Team Status: Active Member Role Status Dates Aravind Jackson Jr, MD Emergency Provider Active Start: March 09, 2024 Sara Blake MD Primary Care Provider Active Start: March 09, 2024 Everett Lawson DO Admit Provider, Att ending Provider Active Start: March 09, 2024 Team Status: Inactive Member Role Status Dates Aravind Jackson Jr, MD Emergency Provider Active Start: March 09, 2024 End: March 14, 2024 Sara Blake MD Primary Care Provider Active Start: March 09, 2024 End: March 14, 2024 W Morgan Lawson DO Admit Provider, Att ending Provider Active Start: March 09, 2024 End: March 14, 2024 Pinky Nicole MD Other Provider Active Start: ay 2023 End: March 14, 2024 Team Status: Active Member Role Status Dates Aravind Jackson Jr, MD Emergency Provider Active Start: March 10, 2024 Sara Blake MD Primary Care Provider Active Start: March 10, 2024 W Morgan Lawson DO Admit Provider, Other Provider Ac tive Start: March 10, 2024 Pinky Nicole MD Attending Provider, Other Provider Active Start: March 10, 2024 Team Status: Active Member Role Status Dates Aravind Jackson Jr, MD Emergency Provider Active Start: March 10, 2024 Sara Blake MD Primary Care Provider Active Start: March 10, 2024 W Morgan Lawson DO Admit Provider, Oth er Provider Active Start: March 10, 2024 Pinky Nicole MD Other Provider Active Start: ay 2023 Aj Smith MD Attending Provider Active Start: March 10 Hematologist Relationship Specialty Start Date End Sara Blake MD [address] [place] [address] PCP - General 03/29/19 Team Status: Active Member Role Status Dates Aravind Jackson Jr, MD Emergency Provider Active Start: March 10, 2024 End: March 14, 2024 Sara Blake MD Primary Care Provider Active Start: March 10, 2024 End: March 14, 2024 W Morgan Lawson DO Admit Provider, Oth er Provider Active Start: March 10, 2024 End: March 14, 2024 Pinky Nicole MD Attending Provider, Other Provider Active Start: March 10, 2024 End: March 14, 2024 Kartik Vilchis MD Active Start: March 10, 2024 End: March 14, 2024 Team Status: Active Member Role Status Dates Aravind Jackson Jr, MD Emergency Provider Active Start: March 10, 2024 End: March 14, 2024 Sara Blake MD Primary Care Provider Active Start: March 10, 2024 End: March 14, 2024 Everett Lawson , Admit Provider, Oth er Provider Active Start: March 10, 2024 End: March 14, 2024 Pinky Nicole MD Other Provider Active Start: M sohan 2023 End: March 14, 2024 Aj Smith MD Attending Provider Active Start: March 10 End: March 14, 2024 Team Status: Active Member Role Status Dates Sara Blake MD Primary Care Provider Active Start: March 16, 2024 Lucy Orellana LPN Attending Provider Active S tart: March 16, 2024 Team Status: Inactive Member Role Status Dates Sara Blake MD Primary Care Provide r, Attending Provider Active Start: April 19, 2024 End: April 19, 2024 Goals (unrecognized section and content) Goals may be documented in a n alternate section FOR RECORDS PERTAINING TO PATIENTS WHO ARE OR HAVE BEEN ENROLLED IN A CHEMICAL DEPENDENCY/SUBSTANCEABUSE PROGRAM, SOME INFORMATION MAY BE OMITTED. This clinical summary was aggregated from multiple sources. Caution should be exercised in using it in the provision of clinical care. This summary normalizes information from multiple sources, and as a consequence, information in this document may materially change the coding, format and clinical context of patient data. In addition, data may be omitted in some cases. CLINICAL DECISIONS SHOULD BE BASED ON THE PRIMARY CLINICAL RECORDS. [employer] provides no warranty or guarantee of the accuracy or completeness of information in this document.
[2024-05-14 19:20] VITALS: BP 155/9; PULSE 77; TEMP 36.5; O2SAT 90; BMI 22.6
[2024-05-14] MEDS: HYDROXYZINE HCL 25 MG TABLET PO (20:56)
[2024-05-15] VITALS (14 sets, daily range): BP systolic 143–162; BP diastolic 74–97; PULSE 66–88; TEMP 36.1–36.5; O2SAT 88–97
[2024-05-15] MEDS: 0.9 % SODIUM CHLORIDE 1,000 ML 100 ML IV (04:27)
[2024-05-15 06:02] LABS: Basophils Percent Auto 0.5 % (0.2-2.0); Eosinophils Absolute Auto 0.2 10^3/uL (0.0-0.7); Hematocrit 38.3 % (36.0-48.0); Hemoglobin 12.2 g/dL (12.0-16.0); Immature Granulocytes Abs Auto 0.02 10^3/uL (0.00-0.03); Immature Granulocytes Pct Auto 0.4 % (0.0-0.5); Lymphocytes Absolute Auto 2.2 10^3/uL (1.2-3.8); Lymphocytes Percent Auto 39.6 % (20.5-60.0); Mean Corpuscular HGB Conc 31.9 g/dL (29.9-35.2); Mean Corpuscular Hemoglobin 30.3 pg (26.7-34.0); Mean Corpuscular Volume 95.3 fL (81.0-99.0); Mean Platelet Volume 9.2 fL (9.5-13.5); Monocytes Absolute Auto 0.5 10^3/uL (0.3-0.8); Monocytes Percent Auto 8.2 % (1.7-12.0); Neutrophils Absolute Auto 2.6 10^3/uL (1.4-6.5); Neutrophils Percent Auto 47.3 % (43.0-75.0); Platelet Count 205 10^3/uL (150-450); Red Blood Count 4.02 10^6/uL (4.20-5.40); White Blood Count 5.5 10^3/uL (4.0-11.0)
[2024-05-15 06:09] LABS: Alanine Aminotransferase 27 U/L (14-59); Albumin Globulin Ratio 0.9; Albumin Level 2.7 g/dL (3.4-5.0); Alkaline Phosphatase 70 U/L (46-116); Anion Gap 7.4; Aspartate Amino Transferase 20 U/L (15-37); BUN Creatinine Ratio 24.4; Bilirubin Total 0.5 mg/dL (0.2-1.0); Calcium 8.4 mg/dL (8.5-10.1); Carbon Dioxide 30.4 mmol/L (21.0-32.0); Chloride 103 mmol/L (98-107); Estimated GFR (African America >60 (>=60); Estimated GFR (Non-African Ame 59 (>=60); Globulin 3.1 g/dL; Glucose 89 mg/dL (74-106); Potassium 3.8 mmol/L (3.5-5.1); Sodium 137 mmol/L (136-145); Total Protein 5.8 g/dL (6.4-8.2)
[2024-05-15] MEDS: HYDROXYZINE HCL 25 MG TABLET PO ×3 (06:09→21:13)
[2024-05-15] MEDS: ENOXAPARIN SODIUM 30 MG/0.3 ML SYRINGE SUBQ (08:16)
[2024-05-15] MEDS: VENLAFAXINE HCL ER 75 MG CAPSULE PO (08:17)
[2024-05-15] MEDS: MEMANTINE HCL 28 MG CAP XR PO (08:17)
[2024-05-15] MEDS: CITALOPRAM HYDROBROMIDE 20 MG TABLET PO (08:17)
--- NOTE | 2024-05-15 08:39 | P.HP_ITS ---
HPI H&P: HPI History of Present Illness Chief complaint: fall w/ head injury Narrative: Patient is a 88 y.o white female with past medical history of Anxiety, dementia who presented from assisted living last night after suffering a fall. Per ER notes she had recent GI bug causing n/v/d and she fell while trying to transition to the restroom. She did hit her head. She notes a headache this morning and some right arm pain. No further n/v/d. I discussed negative radiology findings for fracture but did not and old parietal infarct seen on head CT but patient denies any prior history of stroke. No other issues or concerns today, feels overall sore and weak. ER findings: Xray of pelvis, right humerus, right ankle negative for fracture. 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 This is new from the prior exam but not acute. WBC's 5.5, UA negative, patient not able to ambulate safely on her own, was admitted to hospitalist service for further work up and plan of care Opioid HPI Opioid Management Most Recent Pain and Opioid Data: Last Pain Scale 0 05/15/24 11:18 Last Pain Assessment 05/15/24 11:18 Last ED Pain Assessment 05/14/24 19:02 Last ORT Total Score 0 05/14/24 19:20 Last ORT Risk Category Low Risk 05/14/24 19:20 Review of Systems ROS Narrative ROS: a complete review of systems were reviewed with patient and are positive as below or listed in History of Chief Complaint. General: no fever, chills, night sweats Head: no headache, trauma, visual changes, nausea or vomiting Skin: bruising Eyes: no blurriness of vision Ears: no reported hearing loss, vertigo, earache, or tinnitus Throat: no sore throat, hoarseness, swelling of neck, or tongue pain Heart: no chest pain Lungs: no shortness of breath or cough GI: no diarrhea or vomiting/nausea Urinary: no urinary urgency, frequency or pain Neuro: no numbness or tingling HEM: no bleeding issues or bruising ENDO: no thyroid problems Psych: anxiety and depression [facility] Medical History (Updated 05/15/24 @ 11:58 by Marianne Valderrama, DO) Diverticulitis ?K57.92 - Diverticulitis of intestine, part unspecified, without perforation or abscess without bleeding (ICD-10) Falls infrequently ?Z91.81 - History of falling (ICD-10) Migraines ?G43.909 - Migraine, unspecified, not intractable, without status migrainosus (ICD-10) Dizziness ?R42 - Dizziness and giddiness (ICD-10) Pain ?R52 - Pain, unspecified (ICD-10) Dementia ?F03.90 - Unspecified dementia, unspecified severity, without behavioral disturbance, psychotic disturbance, mood disturbance, and anxiety (ICD-10) 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 - Takotsubo syndrome (ICD-10) Surgical History H/O: hysterectomy ?Z90.710 - Acquired absence of both cervix and uterus (ICD-10) H/O hernia repair ?Z98.890 - Other specified postprocedural states (ICD-10) ?Z87.19 - Personal history of other diseases of the digestive system (ICD-10) FH: cholecystectomy ?Z83.79 - Family history of other diseases of the digestive system (ICD-10) Family History Father Family history of cancer Family history of stroke Daughter Family history of diabetes mellitus Family history of hypertension Mother Family history of hypertension Social History Within the past year, how often did you have a drink containing alcohol: never Score interpretation: A score less than 3 is consistent with normal alcohol consumption. Smoking status: Never smoker Non-prescribed substance use: denies use Previous occupational history: retired Highest level of school completed/degree received: high school graduate Are you now , , , , never or living with a partner: In a typical week, how many times do you talk on the telephone with family, friends, or neighbors: 3 or more times per week How often do you get together with friends or relatives: 3 or more times per week How often do you attend latter day or yarsanism services: never Little interest or pleasure in doing things: not at all Feeling down, depressed, or hopeless: not at all Feel stressed/tense/nervous/anxious/difficulty sleeping: not at all Do you think of yourself as: straight/heterosexual Gender Identity: female Meds Home Medications and Allergies Home Medications ?Medication ?Instructions ?Recorded ?Confirmed ?Type citalopram 20 mg tablet 20 mg PO DAILY 05/14/24 05/14/24 History hydroxyzine HCl 25 mg tablet 25 mg PO Q8H 05/14/24 05/14/24 History memantine 10 mg tablet 10 mg PO Q12H 05/14/24 05/14/24 History venlafaxine 75 mg capsule,extended 75 mg PO DAILY 05/14/24 05/14/24 History release 24 hr Allergies Allergy/AdvReac Type Severity Reaction Status Date / Time Sulfa (Sulfonamide AdvReac Intermediate Weakness Verified 05/14/24 15:36 Antibiotics) Exam Narrative Exam Narrative: General: Patient is alert, and oriented to person proper hygiene Skin: ecchymosis noted on the temporal region of right scalp, ecchymosis of the upper right arm and right lateral pelvis Head: see findings above Eyes: PERRLA, no nystagmus present, conjunctiva clear, no scleral icterus Ears: normal gross auditory acuity Nose: symmetric, no discharge, no maxillary or frontal sinus tenderness Heart: Normal rate and rhythm, no murmurs/rubs/gallops Lungs: no audible wheezes, crackles and normal breath sounds all lung rubio Abdomen: Normal audible bowel sounds, no distension, No palpable masses, no o rganomegaly, no rebound/guarding/ or rigidity Musculoskeletal:no swelling bilateral lower extremities Neuro: CN II-X grossly intact Constitutional Vital Signs, click to edit/add: Last Vital Signs Temp 97.7 F 05/15/24 07:49 Pulse 70 05/15/24 07:49 Resp 18 05/15/24 07:51 BP 150/84 H 05/15/24 07:49 Pulse Ox 93 L 05/15/24 07:49 O2 Del Method Nasal Cannula 05/15/24 07:49 O2 Flow Rate 2 05/15/24 07:49 Results Labs Labs: Short CBC 05/14/24 05/15/24 Range/Units 16:27 05:22 WBC 7.6 5.5 (4.0-11.0) 10^3/uL Hgb 13.0 12.2 (12.0-16.0) g/dL Hct 39.4 38.3 (36.0-48.0) % Plt Count 233 205 (150-450) 10^3/uL BMP 05/14/24 05/15/24 16:27 05:22 Sodium 135 L 137 Potassium 3.9 3.8 Chloride 100 103 Carbon Dioxide 28.9 30.4 BUN 27.0 H 22.0 H Creatinine 1.05 H 0.90 Glucose 97 89 Calcium 9.0 8.4 L Liver Function 05/15/24 Range/Units 05:22 Total Bilirubin 0.5 (0.2-1.0) mg/dL AST 20 (15-37) U/L ALT 27 (14-59) U/L Alkaline Phosphatase 70 (46-116) U/L Albumin 2.7 L (3.4-5.0) g/dL Assessment and Plan Assessment and Plan (1) Contusion of arm, right: Assessment and Plan: s/p fall will get PT/OT evaluation, monitor, normal CBC and coags, not currently on blood thinners. pain control Qualifiers: Encounter type: initial encounter Qualified Code(s): S40.021A - Contusion of right upper arm, initial encounter (2) Fall: Assessment and Plan: pt/ot evaluation Qualifiers: Encounter type: initial encounter Qualified Code(s): W19.XXXA - Unspecified fall, initial encounter (3) Weakness: Assessment and Plan: from recent viral GI illness, monitor electrolytes. check UA (4) Dementia: Assessment and Plan: continue celexa, hydroxyzine, memantine and venlafaxine Qualifiers: Dementia type: unspecified type Dementia severity: unspecified severity Dementia behavioral or psychological symptom: unspecified whether behavioral, psychotic, or mood disturbance or anxiety Qualified Code(s): F03.90 - Unspecified dementia, unspecified severity, without behavioral disturbance, psychotic disturbance, mood disturbance, and anxiety Plan patient is a full code pt/ot evaluation, patient is in observation status and is not expected to cross 2 midnights for hospital necessary care.
--- NOTE | 2024-05-15 09:53 | SWNOTE1 ---
Pt does have some confusion. SW called and left a message for pt's daughter, Bekah. Pt is from an Assisted Living, unsure of where at this time.
--- NOTE | 2024-05-15 10:50 | SWNOTE1 ---
SW received call back from pt's daughter. Pt is from [facility]. Per daughter she has been there since October. Prior to AL she was living with daughter. Pt's daughter lives in [facility]. Pt's awhile back and once he passed, pt declined. Pt's daughter voiced she is going through her own health issues and she is undecided on what to do with patient. SW did let daughter know that PT/OT did recommend SNF at this time. Pt's daughter was thinking she will need rehab. AYANA explained that pt is a precert and to get that started a facility will have to picked today as precert could take a few days. Pt's daughter voiced she does have family around this area, but with her own health issues may want pt closer to [place] so she does not have to drive here. Pt's daughter did ask about memory unit, SW is not sure what facilities in [facility] have memory unit. Pt's daughter is going to call a neighbor and ask about facilities and then call SW back.
--- NOTE | 2024-05-15 10:59 | CM.NOTE ---
Rounds made with Dr. Valderrama. No plan for discharge today.
--- NOTE | 2024-05-15 12:57 | SWNOTE1 ---
SW called pt's daughter and spoke with her. Daughter spoke to her neighbor, but she was no help. Pt's daughter attempted to look up facilities, but voiced it was overwhelming. At this time daughter stated she may just want her mother to go to [facility]. 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 SW let daughter know that they do have covid going around and SW will have to see if they can take pt's insurance. Daughter in agreement for SW to check. Medicare Outpatient Observation Notice reviewed and discussed with patient's daughter. Pt's daughter verbalized understanding and SW signed the form on behalf of daughter. Original placed in patient's room and copy placed in patient?s chart. AYANA called Susan and they will review referral. Referral sent to [facility]. Referral included face sheet, ED note, H&P, provider notes, case management report, nursing notes, diagnostic imaging, med list, and PT/OT notes.
--- NOTE | 2024-05-15 13:48 | SWNOTE1 ---
[facility] is able to accept and starting precert.
--- NOTE | 2024-05-15 13:50 | SWNOTE1 ---
AYANA called and updated daughter and will call Yulia at [facility] as well.
[2024-05-15] MEDS: ACETAMINOPHEN 325 MG TABLET 650 MG PO (19:41)
[2024-05-15] MEDS: ONDANSETRON PF 4 MG/2 ML VIAL IV (21:13)
[2024-05-15] MEDS: TRAMADOL HCL 50 MG TABLET PO (21:13)
[2024-05-16 04:27] VITALS: BP 143/78; PULSE 66; TEMP 36.4; O2SAT 90
[2024-05-16] MEDS: ACETAMINOPHEN 325 MG TABLET 650 MG PO ×2 (05:30→10:04)
[2024-05-16] MEDS: TRAMADOL HCL 50 MG TABLET PO (05:30)
[2024-05-16] MEDS: HYDROXYZINE HCL 25 MG TABLET PO (05:30)
[2024-05-16 06:25] LABS: Basophils Percent Auto 0.7 % (0.2-2.0); Eosinophils Absolute Auto 0.2 10^3/uL (0.0-0.7); Hematocrit 39.2 % (36.0-48.0); Hemoglobin 12.3 g/dL (12.0-16.0); Immature Granulocytes Abs Auto 0.01 10^3/uL (0.00-0.03); Immature Granulocytes Pct Auto 0.2 % (0.0-0.5); Lymphocytes Absolute Auto 1.9 10^3/uL (1.2-3.8); Lymphocytes Percent Auto 33.9 % (20.5-60.0); Mean Corpuscular HGB Conc 31.4 g/dL (29.9-35.2); Mean Corpuscular Hemoglobin 30.1 pg (26.7-34.0); Mean Corpuscular Volume 95.8 fL (81.0-99.0); Mean Platelet Volume 9.1 fL (9.5-13.5); Monocytes Absolute Auto 0.5 10^3/uL (0.3-0.8); Monocytes Percent Auto 8.2 % (1.7-12.0); Neutrophils Absolute Auto 3.1 10^3/uL (1.4-6.5); Platelet Count 215 10^3/uL (150-450); Red Blood Count 4.09 10^6/uL (4.20-5.40); Red Cell Distribution Width 12.9 % (11.0-15.0); White Blood Count 5.7 10^3/uL (4.0-11.0)
[2024-05-16 06:44] LABS: Alanine Aminotransferase 28 U/L (14-59); Alkaline Phosphatase 70 U/L (46-116); Aspartate Amino Transferase 26 U/L (15-37); BUN Creatinine Ratio 20.7; Bilirubin Total 0.4 mg/dL (0.2-1.0); Calcium 8.8 mg/dL (8.5-10.1); Chloride 104 mmol/L (98-107); Estimated GFR (African America >60 (>=60); Estimated GFR (Non-African Ame >60 (>=60); Globulin 2.9 g/dL; Glucose 93 mg/dL (74-106); Potassium 3.8 mmol/L (3.5-5.1); Sodium 140 mmol/L (136-145); Total Protein 5.9 g/dL (6.4-8.2)
[2024-05-16 06:50] LABS: Carbon Dioxide 27.8 mmol/L (21.0-32.0)
[2024-05-16 07:20] VITALS: BP 177/71; PULSE 64; O2SAT 90
[2024-05-16 07:46] VITALS: PULSE 64
[2024-05-16] MEDS: VENLAFAXINE HCL ER 75 MG CAPSULE PO (08:28)
[2024-05-16] MEDS: CITALOPRAM HYDROBROMIDE 20 MG TABLET PO (08:28)
[2024-05-16] MEDS: MEMANTINE HCL 28 MG CAP XR PO (08:28)
[2024-05-16] MEDS: ENOXAPARIN SODIUM 30 MG/0.3 ML SYRINGE SUBQ (08:29)
--- NOTE | 2024-05-16 08:37 | P.DS_ITS ---
DS: Providers Provider Date of admission: 05/14/24 18:46 Primary care physician: Dahiana Ren MD Attending physician on admission: Marianne Valderrama Consults: 05/15/24 09:00 Occupational Therapy Eval and Treat Routine Reason for consultation: Weakness; recent fall Has provider been notified: No Physical Therapy Eval and Treat Routine Reason for consultation: Weakness, recent fall Has provider been notified: No Discharging clinician: Marianne Valderrama DS: Diagnosis Discharge Diagnosis (1) Contusion of arm, right: Qualifiers: Encounter type: initial encounter Qualified Code(s): S40.021A - Contusion of right upper arm, initial encounter (2) Fall: Qualifiers: Encounter type: initial encounter Qualified Code(s): W19.XXXA - Unspecified fall, initial encounter (3) Weakness: (4) Dementia: Qualifiers: Dementia behavioral or psychological symptom: unspecified whether behavioral, psychotic, or mood disturbance or anxiety Dementia severity: unspecified severity Dementia type: unspecified type Qualified Code(s): F03.90 - Unspecified dementia, unspecified severity, without behavioral disturbance, psychotic disturbance, mood disturbance, and anxiety DS: Summary Hospital Course Hospital Course: Patient is a 88 y.o white female with past medical history of Anxiety, dementia who presented from assisted living after suffering a fall. Per ER notes she had recent GI bug causing n/v/d and she fell while trying to transition to the restroom. She did hit her head. She notes a headaches, some right arm pain. No further n/v/d. I discussed negative radiology findings for fracture but old parietal infarct seen on head CT but patient denies any prior history of stroke. No other issues or concerns, feels overall sore and weak. ER findings: Xray of pelvis, right humerus, right ankle negative for fracture. 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 This is new from the prior exam but not acute. WBC's 5.5, UA negative, patient not able to ambulate safely on her own, PT recommended [facility] facility for rehab. Patient still has contusions but healing. Mental status she is aware of her name but does not know her , location, or year. This is unchanged from admission. Patient received Tylenol and Tramadol for pain. No changes to home medications, she may continue to take tylenol and motrin for pain as needed. I feel narcotics will only add to her confusion. No infections, stable labs and vitals. Discharged to the [facility] today for rehab services. Status at Discharge Functional status at discharge: uses cane/walker Overall status at discharge: patient is progressing back to baseline Time Spent with Patient Time attestation: Total time spent providing and/or coordinating discharge services: Time spent: greater than 30 minutes Exam Narrative Exam Narrative: General: Patient is alert, and oriented to person, not place or time, proper h ygiene Skin: ecchymosis noted on the temporal region of right scalp, ecchymosis of the upper right arm and right lateral pelvis Head: see findings above Eyes: PERRLA, no nystagmus present, conjunctiva clear, no scleral icterus Ears: normal gross auditory acuity Nose: symmetric, no discharge, no maxillary or frontal sinus tenderness Heart: Normal rate and rhythm, no murmurs/rubs/gallops Lungs: no audible wheezes, crackles and normal breath sounds all lung rubio Abdomen: Normal audible bowel sounds, no distension, No palpable masses, no organomegaly, no rebound/guarding/ or rigidity Musculoskeletal:no swelling bilateral lower extremities Constitutional Vital Signs, click to edit/add: Last Vital Signs Temp 97.6 F 05/16/24 04:27 Pulse 64 05/16/24 07:46 Resp 18 05/16/24 07:46 BP 177/71 H 05/16/24 07:20 Pulse Ox 90 L 05/16/24 07:20 O2 Del Method Room Air 05/16/24 07:20 O2 Flow Rate 3 05/16/24 04:27 DS: Data Data Completed and Pending Labs on day of discharge: Labs from last 24 hours 05/16/24 05:46 WBC 5.7 RBC 4.09 L Hgb 12.3 Hct 39.2 MCV 95.8 MCH 30.1 MCHC 31.4 RDW 12.9 Plt Count 215 MPV 9.1 L Neut % (Auto) 54.0 Lymph % (Auto) 33.9 Spink % (Auto) 8.2 Eos % (Auto) 3.0 Baso % (Auto) 0.7 Neut # (Auto) 3.1 Lymph # (Auto) 1.9 Spink # (Auto) 0.5 Eos # (Auto) 0.2 Baso # (Auto) 0.0 Abs Immat Gran (auto) 0.01 Imm/Tot Granulo (auto) 0.2 Sodium 140 Potassium 3.8 Chloride 104 Carbon Dioxide 27.8 Anion Gap 12.0 BUN 18.0 Creatinine 0.87 Est GFR ( Amer) >60 Est GFR (Non-Af Amer) >60 BUN/Creatinine Ratio 20.7 Glucose 93 Calcium 8.8 Total Bilirubin 0.4 AST 26 ALT 28 Alkaline Phosphatase 70 Total Protein 5.9 L Albumin 3.0 L Globulin 2.9 Albumin/Globulin Ratio 1.0 Discharge Plan Discharge Disposition: Xfer SNF Discharge Medications: Continued citalopram 20 mg tablet 20 mg PO DAILY hydroxyzine HCl 25 mg tablet 25 mg PO Q8H PRN (Reason: anxiety) memantine 10 mg tablet 10 mg PO Q12H venlafaxine 75 mg capsule,extended release 24hr 75 mg PO DAILY alprazolam 0.25 mg tablet 0.25 mg PO BID PRN (Reason: anxiety) acetaminophen [Tylenol Extra Strength] 500 mg tablet 1,000 mg PO Q6H PRN (Reason: pain) aspirin 81 mg tablet,chewable 81 mg PO .QHS Centrum Minis Women 50 Plus 4 mg iron-200 mcg-25 mcg tablet 1 tab PO .QHS sumatriptan succinate 50 mg tablet 50 mg PO DAILY PRN (Reason: migraine headache) Print Language: Bolivian Forms: Portal Instructions Discharge location: [facility]
--- NOTE | 2024-05-16 09:30 | SWNOTE1 ---
SW received email from [facility] and pt is approved to go. SW notified nursing and doctor.
--- NOTE | 2024-05-16 10:03 | SWNOTE1 ---
AYANA spoke with pt's daughter on the phone. Daughter is at [facility] right now cleaning out pt's belongings. She will be able to transport pt to [place] whenever she is ready for dc. AYANA let nursing know.
--- NOTE | 2024-05-16 10:08 | REH.PTDLY ---
Physical Therapy Daily Note PT Daily Note/Assess Start: 05/15/24 09:27 Freq: Status: Active Protocol: Document 05/16/24 10:02 SAMUEL (Rec: 05/16/24 10:06 SAMUEL [id number]) Physical Therapy Daily Note/Assessment Time In 09:32 Time Out 09:41 Subjective Pt complains of a CARDENAS this morning. Breakfast next to her , but pt states she is done even though she did not eat much. Therapeutic Exercise Minutes (minutes) 7 Therapeutic Exercise Units 1 Therapeutic Exercise Treatment Instructed in B LE supine exs 10x ea with verbal and tactile cues. Exs including AP, QS, heel slides, hip abd, and SLR AA. L knee pops with heel slides, not painful per pt. Therapeutic Activity Minutes (minutes) 2 Therapeutic Activity Units 0 Therapeutic Activity Comments Instructed pt to sit bedside, pt goes to sit up but gets very dizzy upon sitting and lays back down. Pt keeps putting her hand to her forehead, continues to complain of CARDENAS. Informed SAVANAH Godfrey of pt's complaints. Total Therapy Minutes 9 Total Physical Therapy Units 1 Daily Note Summary Pt performed supine exs for improved strength and mobility . Unable to stand at this time due to pt complaining of increased dizziness and headache, pt wanting to lie back down. Pt will benefit from SNF to improve strength and functional mobility.
--- NOTE | 2024-05-16 10:41 | SWNOTE1 ---
AYANA spoke to nurse and therapy. Concerns for safety for transport by family due to dizziness and weakness. AYANA called and set up trips transport by wheelchair for 12:00. AYANA called and notified daughter and she was alright with this. AYANA let nursing, doctor, and [facility] know time.
--- NOTE | 2024-05-16 10:57 | PC.NURSE ---
Report called to I[facility] Buitrago.
[2024-05-16 11:05] VITALS: BP 146/84; PULSE 73; TEMP 36.3; O2SAT 91
--- NOTE | 2024-05-16 11:17 | CM.NOTE ---
Rounds made with Dr. Valderrama. Plan for discharge to [facility] today.
[2024-05-16 11:38] VITALS: O2SAT 92
--- NOTE | 2024-05-16 13:03 | SWNOTE1 ---
HENS was completed by case management. SW fax over all orders and dc med rec to [facility]. Pt is going there skilled.
== END 2024-05-16 11:59 ==
LOC: ER 18:09 → MS 18:49
PROVIDERS: Physician Assistant; Registered Nurse; Admitting Provider Family Medicine; Emergency Provider Emergency Medicine; PCP Family Medicine; Visit Provider Family Medicine
DX: S40.021A Contusion of right upper arm, initial encounter (principal); F03.90 Unspecified dementia, unspecified severity, without behavioral disturbance, psychotic disturbance, mood disturbance, and anxiety; R53.1 Weakness; F41.9 Anxiety disorder, unspecified; R26.2 Difficulty in walking, not elsewhere classified; Z79.899 Other long term (current) drug therapy; W19.XXXA Unspecified fall, initial encounter
CPT/HCPCS: 36415; 70450; 71045; 72125; 72170; 73060; 73610; 80048; 80053; 85025; 85610; 94761; 96372; 96374; 96375; 96376; 97110; 97161; 97165; 97535; 99285; G0378; J1650; J2405; J3010

== ENCOUNTER 2024-05-25 17:02 | Inpatient (IN) | payer MEDICARE, SELFPAY ==
[2024-05-25] VITALS (14 sets, daily range): BP systolic 124–156; BP diastolic 72–98; PULSE 72–92; TEMP 36.3–36.6; O2SAT 85–100; BMI 22.7; BMI 24.2
--- OUTSIDE RECORDS SUMMARY | 2024-05-25 17:09 | XMS_ITS | CCD ---
Author Organization [facility] Care Team Providers Care Warehouse Puller Name Role Phone PHYSICIAN, DEFAULT Admitting Unavailable [...] Unavailable BLAKE, SARA E Consulting Unavailable JAZMINE, MARIA INES Admitting Unavailable JAZMINE, MARIA [...] Unavailable Sara Blake MD Primary Care Provider [phone] SARA BLAKE Primary Care Unavailable SARA BLAKE Referring Unavailable KAHLIL WAKEFIELD Attending Unavailable SARA BLAKE Primary Care Unavailable MD Sara Blake Attending Provider [phone] MD Aravind Jackson Jr Emergency Provider MD Sara Blake Primary Care Provider [phone] DO Everett Lawson Admit Provider DO Everett Lawson Attending Provider MD Pinky [...] [Sulfa Drugs] Allergy to drug (finding) Nausea -[facility] 250 DO Work Phone: (12 sources) Amoxicillin / Clavulanate Drug Allergy 07-05-20 23 Diarrhea [facility] (14 sources) cefdinir Drug Allergy Unknown [facility] Other (20 sources) Cefuroxime Drug Allergy 04-04-20 18 CARDENAS et diarrhea, Unknown Reaction, Unknown, Unknown Reaction, CARDENAS et diarrhea [facility] (14 sources) Cephalexin Drug Allergy Unknown [facility] [employer] Other (20 sources) Ciprofloxacin Drug Allergy 05-10-20 17 muscle weakness, Vomiting, Comment:muscl e weakness, Vomiting, Comment:muscl e weakness, muscle weakness [facility] (14 sources) HMG-CoA reductase inhibitor Drug allergy Unknown [facility] [employer] Other (16 sources) levoFLOXacin; Translations: [Levaquin] Drug Allergy 12-01-19 16 diarrhea [facility] (20 sources) Morphine Drug Allergy 05-10-20 17 Nausea and Vomiting [facility] [employer] Other (14 sources) NITROFURANTOIN, MACROCRYSTALS / Nitrofurantoin, Monohydrate Drug Allergy muscle weakness [facility] [employer] Other (15 sources) Sulfamethoxazole / Trimethoprim; Translations: [Bactrim] Drug Allergy shortness of breath [facility] (20 sources) Trimethoprim Drug Allergy 05-07-20 22 Nausea Only [facility] [employer] Other (5 sources) Amoxicillin / Clavulanate; Translations: [Augmentin] Drug Allergy 12-03-19 17 diarrhea [facility] (1 source) Cefuroxime Drug Allergy [facility] (1 source) Ciprofloxacin Drug Allergy [facility] (2 sources) Morphine Drug Allergy 03-28-20 13 [facility] (1 source) Nitrofurantoin Drug Allergy [facility] (1 source) Trimethoprim Drug Allergy [facility] (6 sources) levoFLOXacin Drug Allergy 05-07-20 22 Nausea and Vomiting [facility] (6 sources) Nitrofurantoin Drug Allergy 05-07-20 22 Headache [facility] (6 sources) Amoxicillin; Translations: [amoxicillin] Drug Allergy 05-07-20 22 Unknown Reaction, Unknown Reaction, diarrhea [facility] (6 sources) Clavulanate; Translations: [clavulanic acid] Drug Allergy 05-07-20 22 Unknown Reaction, Unknown Reaction, diarrhea [facility] (8 sources) Morphine Sulfate (Concentrate) *ANALGESICS - OPIOI Propensity to adverse reactions Unknown [facility] [employer] Other (8 sources) Medicinal cephalosporin and acting as antibacterial agent (FN) Drug allergy Unknown [facility] Other (8 sources) Ceclor *CEPHALOSPORINS* Propensity to adverse reactions Unknown [employer] Other (8 sources) Keflex *CEPHALOSPORINS* Propensity to adverse reactions 11-15-19 Unknown [employer] Other (5 sources) cefdinir; Translations: [cefdinir] Drug Allergy 02-09-20 [facility] (5 sources) Cephalexin; Translations: [cephalexin] Drug Allergy 02-09-20 [facility] (5 sources) Cephalosporins (Antibiotic); Translations: [Cephalosporins] Allergy to substance 02-09-20 [facility] (5 sources) Sulfamethoxazole; Translations: [sulfamethoxazole] Drug Allergy 02-09-[address] [facility] (5 sources) Sqfmszq-XYI-PnC Reductase Inhibitor; Translations: [Mjpfkio-GBW-CrW Reductase Inhibitor] Allergy to substance 02-09-20 [facility] (2 sources) Sulfonamides (Antibiotic); Translations: [SULFA (SULFONAMIDE ANTIBIOTICS)] Drug Intolerance 11-17-[address] [facility] (1 source) Cefuroxime Drug Allergy 04-19-20 [facility] (1 source) Ciprofloxacin Drug Allergy 04-19-20 [facility] (1 source) levoFLOXacin Drug Allergy 04-19-20 [facility] (1 source) Morphine Drug Allergy 04-19-20 [facility] (1 source) Nitrofurantoin Drug Allergy 04-19-20 [facility] (1 source) Trimethoprim Drug Allergy 04-19-20 [facility] Medications Current Medications Medication Drug [...] hydrochloride 10 mg oral tablet (20 sources) I-ppqmth-D-asparta te Receptor Antagonist Start: 06-19-2023 take 10 [...] preparation (2 sources) Multi Vitamin Ac tive Merrill 1-Bmh-Gdw-Fish Oil (5 sources) Start: 2 take 2 capsules by mouth once daily Merrill 4-Qae-Wqg-Fish Oil Active 2 CAP PO Daily May [...] 1.5 mg/ml oral solution (5 sources) Uncompetitive R-sctjnj-T-aspartate Receptor Antagonist, Sigma-1 Agonist Start: 07-24-2019 Mode DM 7.5-7.5 MG/5ML 1 teaspoon as directed [...] days Start: 07-24-2019 take 1 capsule by [facility] every twelve hours Doxycycline [...] directed Sublingual Active omega-3 acid ethyl esters (half-way) 1000 mg oral capsule (5 sources) take 2 capsules by mouth every twelve hours Lovaza 1 GM 2 capsules Orally Twice a day Not-Taking Merrill-3 Fatty Acids 1000 MG (5 sources) take 1 capsule by mouth once daily Merrill-3 Fatty Acids 1000 MG 1 capsule Orally [...] Coronary atherosclerosis; Translations: [Atherosclerotic heart disease of [place] coronary artery without angina pectoris] Onset: 03-09-2024 [...] 04-16-2022 Chronic Other aftercare (1 source) Other shelter (current) drug therapy; Translations: [OTH DECISION UNIT RN CURRENT DRUG THERAPY] Onset: 11-08-2022 Episodic Other aftercare (1 source) assisted (current) use of aspirin; Translations: [[facility] CURRENT USE OF ASPIRIN] Onset: 11-08-2022 Episodic [...] 11-08-2022 Episodic Unclassified (1 source) [place] [facility] Machine Inspector Review Required; Translations: [[place] [facility] Machine Inspector Review Required] Onset: 11-03-2022 Unclassified (1 source) [...] a smoker] Unclassified (1 source) [place] [facility] Machine Inspector Review Required; Translations: [[place] [facility] Machine Inspector Review Required] Onset: 11-03-2022 Unclassified (3 sources) Moderate dementia without behavioral disturbance, psychotic disturbance, mood disturbance, or anxiety, unspecified dementia type F03.B0 Unclassified (1 source) Onset: 03-21-2024 03-21-2024 Results Test Name Value Interpretation Reference Range Facility Urine Cultureon 04-19-2024 Bacteria identified Cx Nom (U) ORGANISM: Escherichia coli (O:ESCCOL) [place] Count >100,000 Aerobic SAURABH Charge (NMIC56) SUSCEPTIBILITY [...] RESISTANT TO ALL B-LACTAM DRUGS. PERFORMED BY: [place] [address] PATHOLOGIST STEEL BURNER CHRISTIANE EVANS M.D. Normal [facility] Comment on above: Performed By: #### P TT, CBC, CK, PT, HS TROP, CMP, BNP #### [address] Basic Metabolic Panelon 05-2 Creatinine Clr Calc Pharmacy 30.32 Normal [facility] Comment on above: Order Comment: PER R N MELLO DRAW AT 0730. SMB 0444. Result Comment: PERF ORMED BY: [place] [address] PATHOLOGIST STEEL BURNER CHRISTIANE EVANS M.D. Performed By: #### P TT, CBC, CK, PT, HS TROP, CMP, BNP #### [address] GFR/1.73 sq M.predicted MDRD (S/P/Bld) [Vol rate/Area] 49.475 mL/min/{1.73_m2} Normal [facility] Comment on above: Order Comment: PER R N MELLO DRAW AT 729. SMB 0444. Performed By: #### P TT, CBC, CK, PT, HS TROP, CMP, BNP #### [facility] [address] Calcium [Mass/volume] in Ser um or PlasmaOrdered By: Everett Lawson on 03-14-2024 Calcium [Mass/Vol] 8.8 mg/dL Normal 8.6-10.3 [facility] Comment on above: Order Comment: PER R N MELLO DRAW AT 729. SMB 0444. Performed By: #### P TT, CBC, CK, PT, HS TROP, CMP, BNP #### [facility] [address] [place] [address] Carbon dioxide, total [Moles /volume] in Serum or PlasmaOrdered By: Everett Lawson on 03-14-2024 CO2 [Moles/Vol] 26.4 mmol/L Normal 21.0-31.0 [facility] Comment on above: Order Comment: PER R N MELLO DRAW AT 729. SMB 0444. Performed By: #### P TT, CBC, CK, PT, HS TROP, CMP, BNP #### [facility] [address] [place] [address] [place] Chloride [Moles/volume] in [place] or PlasmaOrdered By: Everett Lawson on 03-14-2024 Chloride [Moles/Vol] 107 mmol/L Normal 98-107 [facility] Comment on above: Order Comment: PER R N MELLO DRAW AT 729. SMB 0444. Performed By: #### P TT, CBC, CK, PT, HS TROP, CMP, BNP #### [facility] [address] [place] [address] [place] Creatinine [Mass/volume] in Serum or PlasmaOrdered By: Everett Lawson on 03-14-2024 Creatinine [Mass/Vol] 1.09 mg/dL Normal 0.60-1.20 [facility] Comment on above: Order Comment: PER R N MELLO DRAW AT 729. SMB 0444. Performed By: #### P TT, CBC, CK, PT, HS TROP, CMP, BNP #### [facility] [address] Glucose [Mass/volume] in Ser um or PlasmaOrdered By: Everett Lawson on 03-14-2024 Glucose [Mass/Vol] 93 mg/dL Normal 70-100 [facility] Comment on above: ADA recommended refe rence rangeRandom Glucose Reference Range is dependent on time and content of last meal. Glucose of more than 200 mg/dL in a nonstressed, ambulatory subject supports the diagnosis of Diabetes Mellitus. Order Comment: PER R N MELLO DRAW AT 0730. SMB 0444. Result Comment: [place] om Glucose Reference Range is dependent on time and content of last meal. Glucose of more than 200 mg/dL in a nonstressed, ambulatory subject supports the diagnosis of Diabetes Mellitus. ADA recommended reference range Performed By: #### P TT, CBC, CK, PT, HS TROP, CMP, BNP #### [facility] [address] [place] [address] No Panel InformationOrdered By: Everett Lawson on 03-14-2024 Estimated GFR (CKD-EPI) 49.475 mL/Min [facility] Creatinine Clearance (Chem 30.32 [facility] Potassium [Moles/volume] in Serum or PlasmaOrdered By: Everett Lawson on 03-14-2024 Potassium [Moles/Vol] 3.6 mmol/L Normal 3.5-5.1 [facility] Comment on above: Order Comment: PER R N MELLO DRAW AT 0730. SMB 0444. Performed By: #### P TT, CBC, CK, PT, HS TROP, CMP, BNP #### [address] Serum or plasma anion gap de terminationOrdered By: Everett Lawson on 03-14-2024 Anion gap [Moles/Vol] 9.2 mmol/L Normal 6.0-15.0 [facility] Comment on above: Order Comment: PER R N MELLO DRAW AT 0730. SMB 0444. Performed By: #### P TT, CBC, CK, PT, HS TROP, CMP, BNP #### [facility] [address] Sodium [Moles/volume] in Ser um or PlasmaOrdered By: Everett Lawson on 03-14-2024 Sodium [Moles/Vol] 139 mmol/L Normal 136-145 [facility] Comment on above: Order Comment: PER R N MELLO DRAW AT 0730. SMB 0444. Performed By: #### P TT, CBC, CK, PT, HS TROP, CMP, BNP #### [facility] [address] Urea nitrogen [Mass/volume] in Serum or PlasmaOrdered By: Everett Lawson on 03-14-2024 Urea nitrogen [Mass/Vol] 27 mg/dL High 7-25 [facility] Comment on above: Order Comment: PER R N MELLO DRAW AT 0730. SMB 0444. Performed By: #### P TT, CBC, CK, PT, HS TROP, CMP, BNP #### [address] Basic Metabolic Panelon 02-22 Anion gap [Moles/Vol] 13.3 mmol/L Normal 6.0-15.0 [facility] Comment on above: Performed By: #### B MP #### [address] Calcium [Mass/Vol] 8.5 mg/dL Low 8.6-10.3 [facility] Comment on above: Performed By: #### B MP #### [place] [address] [place] Chloride [Moles/Vol] 106 mmol/L Normal 98-107 [facility] Comment on above: Performed By: #### B MP #### [address] CO2 [Moles/Vol] 25.4 mmol/L Normal 21.0-31.0 [facility] Comment on above: Performed By: #### B MP #### [address] Creatinine [Mass/Vol] 1.06 mg/dL Normal 0.60-1.20 [facility] Comment on above: Performed By: #### B MP #### [place] [address] [place] Creatinine Clr Calc Pharmacy 28.75 Normal [facility] Comment on above: Result Comment: PERF ORMED BY: [place] [address] PATHOLOGIST STEEL BURNER CHRISTIANE EVANS M.D. Performed By: #### B MP #### [place] [address] [place] GFR/1.73 sq M.predicted MDRD (S/P/Bld) [Vol rate/Area] 51.160 mL/min/{1.73_m2} Normal [facility] Comment on above: Performed By: #### B MP #### [address] Glucose [Mass/Vol] 91 mg/dL Normal 70-100 [facility] Comment on above: Result Comment: [facility] Glucose Reference Range is dependent on time and content of last meal. Glucose of more than 200 mg/dL in a nonstressed, ambulatory subject supports the diagnosis of Diabetes Mellitus. ADA recommended reference range Performed By: #### B MP #### [place] [address] [place] Potassium [Moles/Vol] 3.7 mmol/L Normal 3.5-5.1 [facility] Comment on above: Performed By: #### B MP #### [place] [address] [place] Sodium [Moles/Vol] 141 mmol/L Normal 136-145 [facility] Comment on above: Performed By: #### B MP #### [address] Urea nitrogen [Mass/Vol] 25 mg/dL Normal 7-25 [facility] Comment on above: Performed By: #### B MP #### [place] [address] [place] Lactoferrin, Stool WBCon Lactoferrin, Stool WBC LACTOFERRIN Negative for Fecal Lactoferrin Immune suppression may cause reduced WBC counts, leading to a false negative result. ---- Reference range = Negative PERFORMED BY: [place] [address] PATHOLOGIST STEEL BURNER CHRISTIANE EVANS M.D. Normal [facility] Comment on above: Performed By: #### P TT, CBC, CK, PT, HS TROP, CMP, BNP #### [address] Stool lactoferrin detectionO rdered By: Glenn Woods on 03-13-2024 Lactoferrin Ql (Stl) [facility] Basic Metabolic Panelon 02-22 Anion gap [Moles/Vol] 9.4 mmol/L Normal 6.0-15.0 [facility] Comment on above: Performed By: #### B MP #### [address] Calcium [Mass/Vol] 8.6 mg/dL Normal 8.6-10.3 [facility] Comment on above: Performed By: #### B MP #### [address] Chloride [Moles/Vol] 106 mmol/L Normal 98-107 [facility] Comment on above: Performed By: #### B MP #### [address] CO2 [Moles/Vol] 25.4 mmol/L Normal 21.0-31.0 [facility] Comment on above: Performed By: #### B MP #### [address] Creatinine [Mass/Vol] 1.10 mg/dL Normal 0.60-1.20 [facility] Comment on above: Performed By: #### B MP #### [place] [address] [place] Creatinine Clr Calc Pharmacy 27.70 Normal [facility] Comment on above: Result Comment: PERF ORMED BY: [place] [address] PATHOLOGIST STEEL BURNER CHRISTIANE EVANS M.D. Performed By: #### B MP #### [place] [address] [place] GFR/1.73 sq M.predicted MDRD (S/P/Bld) [Vol rate/Area] 48.936 mL/min/{1.73_m2} Normal [facility] Comment on above: Performed By: #### B MP #### [address] Glucose [Mass/Vol] 86 mg/dL Normal 70-100 [facility] Comment on above: Result Comment: [facility] Glucose Reference Range is dependent on time and content of last meal. Glucose of more than 200 mg/dL in a nonstressed, ambulatory subject supports the diagnosis of Diabetes Mellitus. ADA recommended reference range Performed By: #### B MP #### [address] Potassium [Moles/Vol] 3.8 mmol/L Normal 3.5-5.1 [facility] Comment on above: Performed By: #### B MP #### [address] Sodium [Moles/Vol] 137 mmol/L Normal 136-145 [facility] Comment on above: Performed By: #### B MP #### [address] Urea nitrogen [Mass/Vol] 29 mg/dL High 7-25 [facility] Comment on above: Performed By: #### B MP #### [address] ECG 12 lead ECGon 03-12-2024 ECG 12 lead ECG [facility] [place] [address] [place] [id number] Electrocardiograph Report Signed Patient: Milind Tate MR#: [id number] : 1935 Acct:[id number] Age/Sex: 88 / F ADM Date: 03/09/24 Loc: Room: [address] [place] [address] Type: ADM IN Attending Dr: Everett Lawson [...] of 11-MAR-2024 07:30, Confirmed by Prabha Lipscomb ([id number]) on 03/12/2024 5:16:13 PM Referred By: Electronically Signed By:Prabha Lipscomb Transcribed By: MUS Signed By Prabha Lipscomb MD 4 1716 Normal [facility] Basic Metabolic Panelon 02-21 Anion gap [Moles/Vol] 10.5 mmol/L Normal 6.0-15.0 Th e [facility] Comment on above: Performed By: #### P TT, CBC, CK, PT, HS TROP, CMP, BNP #### [facility] [address] [place] [id number] [place] Calcium [Mass/Vol] 8.7 mg/dL Normal 8.6-10.3 [facility] Comment on above: Performed By: #### P TT, CBC, CK, PT, HS TROP, CMP, BNP #### [facility] [address] [place] [address] [place] Chloride [Moles/Vol] 104 mmol/L Normal 98-107 [facility] Comment on above: Performed By: #### P TT, CBC, CK, PT, HS TROP, CMP, BNP #### [address] CO2 [Moles/Vol] 26.6 mmol/L Normal 21.0-31.0 [facility] Comment on above: Performed By: #### P TT, CBC, CK, PT, HS TROP, CMP, BNP #### [address] Creatinine [Mass/Vol] 1.25 mg/dL High 0.60-1.20 [facility] Comment on above: Performed By: #### P TT, CBC, CK, PT, HS TROP, CMP, BNP #### [address] Creatinine Clr Calc Pharmacy 24.38 Normal [facility] Comment on above: Result Comment: PERF ORMED BY: [place] [address] PATHOLOGIST STEEL BURNER CHRISTIANE EVANS M.D. Performed By: #### P TT, CBC, CK, PT, HS TROP, CMP, BNP #### [address] GFR/1.73 sq M.predicted MDRD (S/P/Bld) [Vol rate/Area] 41.976 mL/min/{1.73_m2} Normal [facility] Comment on above: Performed By: #### P TT, CBC, CK, PT, HS TROP, CMP, BNP #### [address] Glucose [Mass/Vol] 114 mg/dL High 70-100 [facility] Comment on above: Result Comment: [place] Glucose Reference Range is dependent on time and content of last meal. Glucose of more than 200 mg/dL in a nonstressed, ambulatory subject supports the diagnosis of Diabetes Mellitus. ADA recommended reference range Performed By: #### P TT, CBC, CK, PT, HS TROP, CMP, BNP #### [address] Potassium [Moles/Vol] 4.1 mmol/L Normal 3.5-5.1 [facility] Comment on above: Performed By: #### P TT, CBC, CK, PT, HS TROP, CMP, BNP #### [facility] [address] Sodium [Moles/Vol] 137 mmol/L Normal 136-145 [facility] Comment on above: Performed By: #### P TT, CBC, CK, PT, HS TROP, CMP, BNP #### [facility] [address] Urea nitrogen [Mass/Vol] 28 mg/dL High 7-25 [facility] Comment on above: Performed By: #### P TT, CBC, CK, PT, HS TROP, CMP, BNP #### [facility] [address] ECG 12 lead ECGon 03-11-2024 ECG 12 lead ECG [facility] [place] [address] [place] [address] Electrocardiograph Report Signed Patient: Milind Tate MR#: [id number] : 1935 Acct:[id number] Age/Sex: 88 / F ADM Date: 03/09/24 Loc: Room: [address] [place] [address] Type: ADM IN Attending Dr: Everett Lawson [...] QT has lengthened Confirmed by Aj Smith ([id number]) on 03/11/2024 8:22:46 PM Referred By: Electronically Signed By:Aj Smith Transcribed By: MUS Signed By Aj Smith MD 03/11/242021 Normal [facility] Bacteria [Presence] in Urine by AutomatedOrdered By: Pinky Nicole on 03-10-2024 Bacteria Auto Ql (U) 4+ [HPF] High None Seen [facility] Basic Metabolic Panelon 02-21 Anion gap [Moles/Vol] 13.4 mmol/L Normal 6.0-15.0 Th e [facility] Comment on above: Performed By: #### B MP #### [address] Calcium [Mass/Vol] 9.3 mg/dL Normal 8.6-10.3 [facility] Comment on above: Performed By: #### B MP #### [facility] [address] [place] [address] [place] Chloride [Moles/Vol] 102 mmol/L Normal 98-107 [facility] Comment on above: Performed By: #### B MP #### [facility] [address] CO2 [Moles/Vol] 25.7 mmol/L Normal 21.0-31.0 [facility] Comment on above: Performed By: #### B MP #### [facility] [address] [place] [address] [place] Creatinine [Mass/Vol] 1.13 mg/dL Normal 0.60-1.20 [facility] Comment on above: Performed By: #### B MP #### [facility] [address] [place] [address] [place] Creatinine Clr Calc Pharmacy 26.97 Normal [facility] Comment on above: Result Comment: PERF ORMED BY: [place] [address] PATHOLOGIST STEEL BURNER CHRISTIANE EVANS M.D. Performed By: #### B MP #### [facility] [address] [place] [address] [place] GFR/1.73 sq M.predicted MDRD (S/P/Bld) [Vol rate/Area] 47.381 mL/min/{1.73_m2} Normal [facility] Comment on above: Performed By: #### B MP #### [address] Glucose [Mass/Vol] 133 mg/dL High 70-100 [facility] Comment on above: Result Comment: [place] Glucose Reference Range is dependent on time and content of last meal. Glucose of more than 200 mg/dL in a nonstressed, ambulatory subject supports the diagnosis of Diabetes Mellitus. ADA recommended reference range Performed By: #### B MP #### [address] Potassium [Moles/Vol] 5.1 mmol/L Significan t change down 3.5-5.1 [facility] Comment on above: Performed By: #### B MP #### [place] [address] [place] Sodium [Moles/Vol] 136 mmol/L Normal 136-145 [facility] Comment on above: Performed By: #### B MP #### [address] Urea nitrogen [Mass/Vol] 23 mg/dL Normal 7-25 [facility] Comment on above: Performed By: #### B MP #### [address] Bilirubin Test strip Ql (U)O rdered By: Pinky Nicole on 03-10-2024 Bilirubin Ql (U) Negative Negative [facility] Color of Urine by AutoOrdere d By: Pinky Nicole on 03-10-2024 Color (U) Yellow Normal Yellow [facility] Comment on above: Order Comment: Name Collection Type:: Voided Performed By: #### P TT, CBC, CK, PT, HS TROP, CMP, BNP #### [place] [id number] [place] Dipstick and Microscopicon 0 03-10-2024 Appearance (U) Cloudy Critically abnormal Clear [facility] Comment on above: Order Comment: Name Collection Type:: Voided Performed By: #### P TT, CBC, CK, PT, HS TROP, CMP, BNP #### [address] Bacteria,Urine 4+ High None Seen [facility] Comment on above: Order Comment: Name Collection Type:: Voided Performed By: #### P TT, CBC, CK, PT, HS TROP, CMP, BNP #### [address] Bilirubin,Urine Negative Normal Negative [facility] Comment on above: Order Comment: Name Collection Type:: Voided Performed By: #### P TT, CBC, CK, PT, HS TROP, CMP, BNP #### [address] Glucose Ql (U) Normal Normal Normal [facility] Comment on above: Order Comment: Name Collection Type:: Voided Performed By: #### P TT, CBC, CK, PT, HS TROP, CMP, BNP #### [address] Hyaline Casts,Urine 0-8 Normal 0-8 [facility] Comment on above: Order Comment: Name Collection Type:: Voided Result Comment: PERF ORMED BY: [place] [address] PATHOLOGIST STEEL BURNER CHRISTIANE EVANS M.D. Performed By: #### P TT, CBC, CK, PT, HS TROP, CMP, BNP #### [address] Ketones Ql (U) Negative Normal Negative [facility] Comment on above: Order Comment: Name Collection Type:: Voided Performed By: #### P TT, CBC, CK, PT, HS TROP, CMP, BNP #### [address] Leukocyte esterase Test strip Ql (U) 2+ High Negative [facility] Comment on above: Order Comment: Name Collection Type:: Voided Performed By: #### P TT, CBC, CK, PT, HS TROP, CMP, BNP #### [address] Nitrite,Urine Positive High Negative [facility] Comment on above: Order Comment: Name Collection Type:: Voided Performed By: #### P TT, CBC, CK, PT, HS TROP, CMP, BNP #### [address] Occult Blood,Urine Negative Normal Negative [facility] Comment on above: Order Comment: Name Collection Type:: Voided Result Comment: PERF ORMED BY: [place] [address] PATHOLOGIST STEEL BURNER CHRISTIANE EVANS M.D. Performed By: #### P TT, CBC, CK, PT, HS TROP, CMP, BNP #### [address] Protein,Urine Negative Normal Negative [facility] Comment on above: Order Comment: Name Collection Type:: Voided Performed By: #### P TT, CBC, CK, PT, HS TROP, CMP, BNP #### [address] RBC,Urine 3-4 Normal 0-4 [facility] Comment on above: Order Comment: Name Collection Type:: Voided Performed By: #### P TT, CBC, CK, PT, HS TROP, CMP, BNP #### [address] Specificy [place],Urine 1.031 High 1.001-1.03 0 [facility] Comment on above: Order Comment: Name Collection Type:: Voided Performed By: #### P TT, CBC, CK, PT, HS TROP, CMP, BNP #### [address] Squamous Epithelial Cell,Urine 1-2 Normal 0-2 [facility] Comment on above: Order Comment: Name Collection Type:: Voided Performed By: #### P TT, CBC, CK, PT, HS TROP, CMP, BNP #### [facility] [address] Urobilinogen,Urine Normal Normal Normal [facility] Comment on above: Order Comment: Name Collection Type:: Voided Performed By: #### P TT, CBC, CK, PT, HS TROP, CMP, BNP #### [facility] [address] [place] [id number] [place] WBC,Urine 5-9 High 0-4 [facility] Comment on above: Order Comment: Name Collection Type:: Voided Performed By: #### P TT, CBC, CK, PT, HS TROP, CMP, BNP #### [facility] [address] [place] [id number] [facility] ECG 12 lead ECGon 03-10-2024 ECG 12 lead ECG [facility] Main [place] [address] [place] [address] Electrocardiograph Report Signed Patient: Milind Tate MR#: [id number] : 1935 Acct:[id number] Age/Sex: 88 / F ADM Date: 03/09/24 Loc: Room: [address] [place] [address] Type: ADM IN Attending Dr: Everett Lawson [...] no longer present Confirmed by Aj Smith ([id number]) on 03/11/2024 8:22:43 PM Referred By: Electronically Signed By:Aj Smith Transcribed By: MUS Signed By Aj Smith MD 03/11/242021 Normal [facility] E[facility] echo transthoracicon [facility] echo transthoracic [facility] [place] [address] Echocardiogram Signed Patient: Milind Tate MR#: [id number] : 1935 Acct:[id number] Age/Sex: 88 / F ADM Date: 03/09/24 Loc: Room: [address] [place] [address] Type: ADM IN Attending Dr: Everett Lawson DO Ordering Provider: Everett Lawson DO Date of Service: 03/10/24 [facility] echo transthoracic: recurrent Takotsubo CMP Copies to: [...] 1134 Signed By: Prabha Lipscomb MD 03/10/24 5438 Normal [facility] Erythrocytes [#/area] in Uri ne sediment by Automated countOrdered By: Pinky Nicole on 03-10-2024 RBC Auto (Urine sed) [#/Area] 3-4 [HPF] 0-4 [facility] Ketones Auto test strip (U) [Mass/Vol]Ordered By: Pinky Nicole on 03-10-2024 Ketones (U) [Mass/Vol] Negative Negative Fi [facility] - UrinalysisOrder ed By: Pinky Nicole on 03-10-2024 Hyaline casts LM Ql (Urine sed) 0-8 [LPF] 0-8 [facility] Leukocytes [#/area] in Urine sediment by Automated countOrdered By: Pinky Nicole on 03-10-2024 WBC Auto (Urine sed) [#/Area] 5-9 [HPF] High 0-4 [facility] Nitrite Test strip Ql (U)Ord ered By: Pinky Nicole on 03-10-2024 Nitrite Ql (U) Positive High Negative [facility] Protein Auto test strip (U) [Mass/Vol]Ordered By: Pinky Nicole on 03-10-2024 Protein (U) [Mass/Vol] Negative Negative [facility] Specific gravity Auto test s trip (U) [Rel density]Ordered By: Pinky Nicole on 03-10-2024 Specific gravity (U) [Rel density] 1.031 High 1.001-1.[address] [facility] Squamous epithelial cells de tection in urine sediment by light microscopyOrdered By: Pinky Nicole on 03-10-2024 Epithelial cells.squamous LM Ql (Urine sed) 1-2 [HPF] 0-2 [facility] Troponin I High Sensitivityo n 03-10-2024 Troponin I High Sensitivity 8379.9 pg/mL Off scale high 0.0-15.0 [facility] Comment on above: Order Comment: DRAW AT 0648 PER SAVANAH LITTLE Result Comment: Crit ical Result : Called to and read back by: MIGUEL JIMENEZ at: 03/10/2024 08:01:08 by:MILA PERFORMED BY: [place] [address] PATHOLOGIST STEEL BURNER CHRISTIANE EVANS M.D. Performed By: #### P TT, CBC, CK, PT, HS TROP, CMP, BNP #### [address] Troponin I High Sensitivity 7730.0 pg/mL Off scale high 0.0-15.0 [facility] Comment on above: Result Comment: Crit ical Result : Called to and read back by: MELANIE GOMEZ at: 03/10/2024 06:06:38 by:[id number] PERFORMED BY: [place] [address] PATHOLOGIST STEEL BURNER CHRISTIANE EVANS M.D. Performed By: #### P TT, CBC, CK, PT, HS TROP, CMP, BNP #### [facility] [address] [place], [place] [id number] [facility] Troponin I High Sensitivity 7199.8 pg/mL Off scale high 0.0-15.0 [facility] Comment on above: Order Comment: DRAW AT 0157 Result Comment: Resu lts called at 0219 on 03/10/24 PERFORMED BY: [place] [address] PATHOLOGIST STEEL BURNER CHRISTIANE EVANS M.D. Performed By: #### P TT, CBC, CK, PT, HS TROP, CMP, BNP #### [facility] [address] [place] [address] [place] Troponin I.cardiac [Mass/vol ume] in Serum or Plasma by Detection limit <= 0.01 ng/Ordered By: Everett Lawson on 03-10-2024 Troponin I.cardiac DL <= 0.01 ng/mL [Mass/Vol] 8379.9 pg/mL High 0.0-15.0 [facility] Comment on above: Critical Result : Ca lled to and read back by: MIGUEL JIMENEZ at: 03/10/2024 08:01:08 by:MILA Urine Cultureon 03-10-2024 Bacteria identified Cx Nom (U) ORGANISM: Escherichia coli (O:ESCCOL) [place] Count >100,000 ORGANISM: Escherichia coli (O:ESCCOL) [place] Count <10,000 Aerobic SAURABH Charge (NMIC56) SUSCEPTIBILITY [...] RESISTANT TO ALL B-LACTAM DRUGS. PERFORMED BY: [place] [address] PATHOLOGIST STEEL BURNER CHRISTIANE EVANS M.D. Normal [facility] Comment on above: Performed By: #### P TT, CBC, CK, PT, HS TROP, CMP, BNP #### [facility] [address] Urine clarity by refractomet ry automatedOrdered By: Pinky Nicole on 03-10-2024 Clarity Refractometry automated (U) Cloudy Abnormal Clear [facility] Urine culture routineOrdered By: Pinky Nicole on 03-10-2024 Bacteria identified Cx Nom (U) Escherichia coli#[address] [facility] Urine glucose measurement by automated test strip (mass/volume)Ordered By: Pinky Nicole on 03-10-2024 Glucose Auto test strip (U) [Mass/Vol] Normal mg/dL Normal [facility] Urine hemoglobin detection b y automated test stripOrdered By: Pinky Nicole on 03-10-2024 Hemoglobin Auto test strip Ql (U) Negative Negative [facility] Urine leukocyte esterase det ection by automated test stripOrdered By: Pinky Nicole on 03-10-2024 Leukocyte esterase Auto test strip Ql (U) 2+ High Negative [facility] Urine pH measurement by auto mated test stripOrdered By: Pinky Nicole on 03-10-2024 pH (U) 5.5 [pH] Normal 5.0-9.0 [facility] Comment on above: Order Comment: Name Collection Type:: Voided Performed By: #### P TT, CBC, CK, PT, HS TROP, CMP, BNP #### [facility] [address] Urobilinogen Auto test strip (U) [Mass/Vol]Ordered By: Pinky Nicole on 03-10-2024 Urobilinogen (U) [Mass/Vol] Normal mg/dL Normal [facility] Activated partial thrombopla stin time (aPTT) in platelet poor plasma by coagulation aOrdered By: Aravind Jackson on 03-09-2024 aPTT Coag (PPP) [Time] 27.9 s 25.1-36.5 [facility] Comment on above: A hematocrit value g reater than 55% may lead to inaccurate results in coagulation testing. Patients having hematocrit values >55% require a special collection tube for coagulation studies. Please contact the laboratory at [phone] for redraw instructions. Alanine aminotransferase [En zymatic activity/volume] in Serum or PlasmaOrdered By: Aravind Jackson on 03-09-2024 ALT [Catalytic activity/Vol] 12 U/L Normal 7-52 [facility] Comment on above: Performed By: #### P TT, CBC, CK, PT, HS TROP, CMP, BNP #### [address] Albumin [Mass/volume] in Ser um or Plasma by Bromocresol green (BCG) dye binding methoOrdered By: Aravind Jackson on 03-09-2024 Albumin BCG dye [Mass/Vol] 4.0 g/dL 3.5-5.7 [facility] Alkaline phosphatase [Enzyma tic activity/volume] in Serum or PlasmaOrdered By: Aravind Jackson on 03-09-2024 ALP [Catalytic activity/Vol] 71 U/L Normal 34-104 [facility] Comment on above: Performed By: #### P TT, CBC, CK, PT, HS TROP, CMP, BNP #### [address] Aspartate aminotransferase [ Enzymatic activity/volume] in Serum or PlasmaOrdered By: Aravind Jackson on 03-09-2024 AST [Catalytic activity/Vol] 24 U/L Normal 13-39 [facility] Comment on above: Performed By: #### P TT, CBC, CK, PT, HS TROP, CMP, BNP #### [address] Automated basophil %Ordered By: Aravind Jackson on 03-09-2024 Basophils/100 WBC (Bld) 0.9 % Normal . [facility] Comment on above: Performed By: #### P TT, CBC, CK, PT, HS TROP, CMP, BNP #### [place] [id number] [place] Automated basophil countOrde red By: Aravind Jackson on 03-09-2024 Basophils (Bld) [#/Vol] 0.1 10*3/uL Normal 0.0-0.2 [facility] Comment on above: Result Comment: PERF ORMED BY: [place] [address] PATHOLOGIST STEEL BURNER CHRISTIANE EVANS M.D. Performed By: #### P TT, CBC, CK, PT, HS TROP, CMP, BNP #### [address] Automated blood monocyte cou ntOrdered By: Aravind Jackson on 03-09-2024 Monocytes (Bld) [#/Vol] 0.9 10*3/uL High 0.0-0.8 [facility] Comment on above: Performed By: #### P TT, CBC, CK, PT, HS TROP, CMP, BNP #### [address] Automated eosinophil %Ordere d By: Aravind Jackson on 03-09-2024 Eosinophils/100 WBC (Bld) 1.2 % Normal . [facility] Comment on above: Performed By: #### P TT, CBC, CK, PT, HS TROP, CMP, BNP #### [address] Automated eosinophil countOr dered By: Aravind Jackson on 03-09-2024 Eosinophils (Bld) [#/Vol] 0.1 10*3/uL Normal 0.0-0.45 [facility] Comment on above: Performed By: #### P TT, CBC, CK, PT, HS TROP, CMP, BNP #### [address] Automated monocyte %Ordered By: Aravind Jackson on 03-09-2024 Monocytes/100 WBC (Bld) 7.5 % Normal . [facility] Comment on above: Performed By: #### P TT, CBC, CK, PT, HS TROP, CMP, BNP #### [address] Automated neutrophil %Ordere d By: Aravind Jackson on 03-09-2024 Neutrophils/100 WBC (Bld) 54.7 % Normal . [facility] Comment on above: Performed By: #### P TT, CBC, CK, PT, HS TROP, CMP, BNP #### [facility] [address] BNP ser/plasOrdered By: Alessandro Jackson on 03-09-2024 Natriuretic peptide B (Bld) [Mass/Vol] 57.0 pg/mL Normal 5-100 [facility] Comment on above: Result Comment: PERF ORMED BY: [place] [address] PATHOLOGIST STEEL BURNER CHRISTIANE EVANS M.D. Performed By: #### P TT, CBC, CK, PT, HS TROP, CMP, BNP #### [address] Bilirubin.total [Mass/volume ] in Serum or PlasmaOrdered By: Aravind Jackson on 03-09-2024 Bilirubin [Mass/Vol] 0.4 mg/dL Normal 0.3-1.0 [facility] Comment on above: Performed By: #### P TT, CBC, CK, PT, HS TROP, CMP, BNP #### [address] Calcium [Mass/volume] in Ser um or PlasmaOrdered By: Aravind Jackson on 03-09-2024 Calcium [Mass/Vol] 9.5 mg/dL Normal 8.6-10.3 [facility] Comment on above: Performed By: #### P TT, CBC, CK, PT, HS TROP, CMP, BNP #### [facility] [address] Carbon dioxide, total [Moles /volume] in Serum or PlasmaOrdered By: Aravind Jackson on 03-09-2024 CO2 [Moles/Vol] 20.9 mmol/L Low 21.0-31.0 [facility] Comment on above: Performed By: #### P TT, CBC, CK, PT, HS TROP, CMP, BNP #### [address] Chloride [Moles/volume] in [place] or PlasmaOrdered By: Aravind Jackson on 03-09-2024 Chloride [Moles/Vol] 105 mmol/L Normal 98-107 [facility] Comment on above: Performed By: #### P TT, CBC, CK, PT, HS TROP, CMP, BNP #### [address] Complete Blood Count Auto Di ffon 03-09-2024 Mean Corpuscular HGB Conc 33.4 g/dL Normal 32.0-35.0 [facility] Comment on above: Performed By: #### P TT, CBC, CK, PT, HS TROP, CMP, BNP #### [address] Monocytes/100 WBC (Bld) 19.33 % Normal 0.00-20.00 [facility] Comment on above: Performed By: #### P TT, CBC, CK, PT, HS TROP, CMP, BNP #### [address] NRBC% 0.1 /100{WBC} Normal 0-0.5 [facility] Comment on above: Performed By: #### P TT, CBC, CK, PT, HS TROP, CMP, BNP #### [address] Comprehensive Metabolic Pane reynaldo 03-09-2024 Albumin [Mass/Vol] 4.0 g/dL Normal 3.5-5.7 [facility] Comment on above: Performed By: #### P TT, CBC, CK, PT, HS TROP, CMP, BNP #### [address] Creatinine Clr Calc Pharmacy 27.07 Normal [facility] Comment on above: Result Comment: PERF ORMED BY: [place] [address] PATHOLOGIST STEEL BURNER CHRISTIANE EVANS M.D. Performed By: #### P TT, CBC, CK, PT, HS TROP, CMP, BNP #### [facility] [address] [place] [address] [place] GFR/1.73 sq M.predicted MDRD (S/P/Bld) [Vol rate/Area] 41.976 mL/min/{1.73_m2} Normal [facility] Comment on above: Performed By: #### P TT, CBC, CK, PT, HS TROP, CMP, BNP #### [facility] [address] Creatine kinase [Enzymatic a ctivity/volume] in Serum or PlasmaOrdered By: Aravind Jackson on 03-09-2024 CK [Catalytic activity/Vol] 71 U/L Normal 30-223 [facility] Comment on above: Performed By: #### P TT, CBC, CK, PT, HS TROP, CMP, BNP #### [facility] [address] [place] [address] Creatinine [Mass/volume] in Serum or PlasmaOrdered By: Aravind Jackson on 03-09-2024 Creatinine [Mass/Vol] 1.25 mg/dL High 0.60-1.20 [facility] Comment on above: Performed By: #### P TT, CBC, CK, PT, HS TROP, CMP, BNP #### [address] ECG 12 lead ECGon 03-09-2024 ECG 12 lead ECG [facility] Main [place] [address] [place] [address] Electrocardiograph Report Signed Patient: Milind Tate MR#: [id number] : 1935 Acct:[id number] Age/Sex: 88 / F ADM Date: 03/09/24 Loc: Room: [address] [place] [address] Type: DIS IN Attending Dr: Everett Lawson [...] changes have occurred Confirmed by Aj Smith ([id number]) on 03/20/2024 10:06:02 PM Referred By: Electronically Signed By:Aj Smith Transcribed By: MUS Signed By Aj Smith MD 03/20/242205 Normal [facility] ECG 12 lead ECG [facility] [place] [address] Electrocardiograph Report Signed Patient: Milind Tate MR#: [id number] : 1935 Acct:[id number] Age/Sex: 88 / F ADM Date: 03/09/24 Loc: Room: [address] [place] [address] Type: ADM IN Attending Dr: Everett Lawson [...] infarct , age undetermined Prolonged QT ACUTE [place] / STEMI Consider right ventricular involvement in acute inferior infarct Abnormal ECG No previous ECGs available Confirmed by ARAVIND JACKSON MD ([id number]) on 03/11/2024 5:25:10 AM Referred By: Electronically Signed By:ARAVIND JACKSON MD Transcribed By: MUS Signed By Aravind Jackson Jr, MD [id number] Normal [facility] Erythrocyte distribution wid th [Ratio] by Automated countOrdered By: Aravind Jackson on 03-09-2024 Erythrocyte distribution width (RBC) [Ratio] 13.6 % Normal 11.9-15.3 [facility] Comment on above: Performed By: #### P TT, CBC, CK, PT, HS TROP, CMP, BNP #### [facility] [address] Erythrocytes [#/volume] in B lood by Automated countOrdered By: Aravind Jackson on 03-09-2024 RBC (Bld) [#/Vol] 4.34 10*6/uL Normal 3.60-5.00 [facility] Comment on above: Performed By: #### P TT, CBC, CK, PT, HS TROP, CMP, BNP #### [facility] [address] Glucose [Mass/volume] in Ser um or PlasmaOrdered By: Aravind Jackson on 03-09-2024 Glucose [Mass/Vol] 126 mg/dL High 70-100 [facility] Comment on above: ADA recommended refe rence rangeRandom Glucose Reference Range is dependent on time and content of last meal. Glucose of more than 200 mg/dL in a nonstressed, ambulatory subject supports the diagnosis of Diabetes Mellitus. Result Comment: [place] om Glucose Reference Range is dependent on time and content of last meal. Glucose of more than 200 mg/dL in a nonstressed, ambulatory subject supports the diagnosis of Diabetes Mellitus. ADA recommended reference range Performed By: #### P TT, CBC, CK, PT, HS TROP, CMP, BNP #### [facility] [address] Hematocrit [Volume Fraction] of Blood by Automated countOrdered By: Aravind Jackson on 03-09-2024 Hematocrit (Bld) [Volume fraction] 39.9 % Normal 34.0-46.4 [facility] Comment on above: Performed By: #### P TT, CBC, CK, PT, HS TROP, CMP, BNP #### [facility] [address] [place] [address] [place] Hemoglobin [Mass/volume] in BloodOrdered By: Aravind Jackson on 03-09-2024 Hemoglobin (Bld) [Mass/Vol] 13.3 g/dL Normal 11.8-15.4 [facility] Comment on above: Performed By: #### P TT, CBC, CK, PT, HS TROP, CMP, BNP #### [facility] [address] INR in Platelet poor plasma by Coagulation assayOrdered By: Aravind Jackson on 03-09-2024 INR Coag (PPP) [Relative time] 0.9 {INR} Normal [facility] Comment on above: INR Therapeutic Rang [...] CK, PT, HS TROP, CMP, BNP #### [facility] [address] Leukocytes [#/volume] correc jey for nucleated erythrocytes in Blood by Automated counOrdered By: Aravind Jackson on 03-09-2024 WBC corrected for nucl RBC Auto (Bld) [#/Vol] 11.8 10*3/uL High 3.8-11.6 [facility] Leukocytes [#/volume] in Blo od by Automated countOrdered By: Aravind Jackson on 03-09-2024 WBC (Bld) [#/Vol] 11.8 10*3/uL High 3.8-11.6 [facility] Comment on above: Performed By: #### P TT, CBC, CK, PT, HS TROP, CMP, BNP #### [facility] [address] [place] [address] [place] Lymphocytes [#/volume] in Bl ood by Automated countOrdered By: Aravind Jackson on 03-09-2024 Lymphocytes (Bld) [#/Vol] 4.2 10*3/uL Normal 1.00-4.8 [facility] Comment on above: Performed By: #### P TT, CBC, CK, PT, HS TROP, CMP, BNP #### [address] Lymphocytes/100 leukocytes i n Blood by Automated countOrdered By: Aravind Jackson on 03-09-2024 Lymphocytes/100 WBC (Bld) 35.7 % Normal . [facility] Comment on above: Performed By: #### P TT, CBC, CK, PT, HS TROP, CMP, BNP #### [address] MCH [Entitic mass] by Automa jey countOrdered By: Aravind Jackson on 03-09-2024 MCH (RBC) [Entitic mass] 30.7 pg Normal 24.7-34.3 [facility] Comment on above: Performed By: #### P TT, CBC, CK, PT, HS TROP, CMP, BNP #### [address] MCHC Auto (RBC) [Mass/Vol]Or dered By: Aravind Jackson on 03-09-2024 MCHC (RBC) [Mass/Vol] 33.4 g/dL 32.0-35.0 [facility] MCV [Entitic volume] by Auto mated countOrdered By: Aravind Jackson on 03-09-2024 MCV (RBC) [Entitic vol] 92.0 fL Normal 80-100 [facility] Comment on above: Performed By: #### P TT, CBC, CK, PT, HS TROP, CMP, BNP #### [address] Monocyte distribution width [Entitic volume] in Blood by AutomatedOrdered By: Aravind Jackson on 03-09-2024 Monocyte distribution width Auto (Bld) [Entitic vol] 19.33 % 0.00-20.00 [facility] Neutrophils [#/volume] in Bl ood by Automated countOrdered By: Aravind Jackson on 03-09-2024 Neutrophils (Bld) [#/Vol] 6.5 10*3/uL Normal 1.8-7.7 [facility] Comment on above: Performed By: #### P TT, CBC, CK, PT, HS TROP, CMP, BNP #### [address] No Panel InformationOrdered By: Aravind Jackson on 03-09-2024 Estimated GFR (CKD-EPI) 41.976 mL/Min [facility] Creatinine Clearance (Chem 27.07 [facility] Nucleated erythrocytes [Pres ence] in Blood by Automated countOrdered By: Aravind Jackson on 03-09-2024 Nucleated RBC Auto Ql (Bld) 0.1 /100{WBC} 0-0.5 [facility] Partial Thromboplastin Timeo n 03-09-2024 aPTT Coag (Bld) [Time] 27.9 s Normal 25.1-36.5 Th [facility] Comment on above: Result Comment: A he matocrit value greater than 55% may lead to inaccurate results in coagulation testing. Patients having hematocrit values >55% require a special collection tube for coagulation studies. Please contact the laboratory at [phone] for redraw instructions. PERFORMED BY: [place] [address] PATHOLOGIST STEEL BURNER CHRISTIANE EVANS M.D. Performed By: #### P TT, CBC, CK, PT, HS TROP, CMP, BNP #### [address] Platelet mean volume [Entiti c volume] in Blood by Automated countOrdered By: Aravind Jackson on 03-09-2024 Platelet mean volume (Bld) [Entitic vol] 7.0 fL Normal 6.3-10.7 [facility] Comment on above: Performed By: #### P TT, CBC, CK, PT, HS TROP, CMP, BNP #### [address] Platelets [#/volume] in Bloo d by Automated countOrdered By: Aravind Jackson on 03-09-2024 Platelets (Bld) [#/Vol] 248 10*3/uL Normal 150-450 [facility] Comment on above: Performed By: #### P TT, CBC, CK, PT, HS TROP, CMP, BNP #### [address] Potassium [Moles/volume] in Serum or PlasmaOrdered By: Aravind Jackson on 03-09-2024 Potassium [Moles/Vol] 3.6 mmol/L Normal 3.5-5.1 [facility] Comment on above: Performed By: #### P TT, CBC, CK, PT, HS TROP, CMP, BNP #### [address] [address] Protein [Mass/volume] in Ser um or PlasmaOrdered By: Aravind Jackson on 03-09-2024 Protein [Mass/Vol] 6.5 g/dL Normal 6.4-8.9 [facility] Comment on above: Performed By: #### P TT, CBC, CK, PT, HS TROP, CMP, BNP #### [address] Prothrombin time (PT)Ordered By: Aravind Jackson on 03-09-2024 PT Coag (PPP) [Time] 10.9 s Normal 9.0-12.9 [facility] Comment on above: A hematocrit value g reater than 55% may lead to inaccurate results in coagulation testing. Patients having hematocrit values >55% require a special collection tube for coagulation studies. Please contact the laboratory at [phone] for redraw instructions. Result Comment: A he matocrit value greater than 55% may lead to inaccurate results in coagulation testing. Patients having hematocrit values >55% require a special collection tube for coagulation studies. Please contact the laboratory at [phone] for redraw instructions. Performed By: #### P TT, CBC, CK, PT, HS TROP, CMP, BNP #### [address] Serum globulin measurement b y calculation (mass/volume)Ordered By: Aravind Jackson on 03-09-2024 Globulin (S) [Mass/Vol] 2.5 g/dL Normal [facility] Comment on above: Performed By: #### P TT, CBC, CK, PT, HS TROP, CMP, BNP #### [address] [place] [address] [place] Serum or plasma albumin/glob ulin mass ratioOrdered By: Aravind Jackson on 03-09-2024 Albumin/Globulin [Mass ratio] 1.6 {ratio} Normal [facility] Comment on above: Performed By: #### P TT, CBC, CK, PT, HS TROP, CMP, BNP #### [address] Serum or plasma anion gap de terminationOrdered By: Aravind Jackson on 03-09-2024 Anion gap [Moles/Vol] 13.7 mmol/L Normal 6.0-15.0 [facility] Comment on above: Performed By: #### P TT, CBC, CK, PT, HS TROP, CMP, BNP #### [address] Sodium [Moles/volume] in Ser um or PlasmaOrdered By: Aravind Jackson on 03-09-2024 Sodium [Moles/Vol] 136 mmol/L Normal 136-145 [facility] Comment on above: Performed By: #### P TT, CBC, CK, PT, HS TROP, CMP, BNP #### [address] Troponin I High Sensitivityo n 03-09-2024 Troponin I High Sensitivity 6642.4 pg/mL Off scale high 0.0-15.0 [facility] Comment on above: Result Comment: Crit ical Result : Called to and read back by: MELANIE HIGHTOWER at: 03/09/2024 23:44:11 by:[id number] PERFORMED BY: [place] [address] PATHOLOGIST STEEL BURNER CHRISTIANE EVANS M.D. Performed By: #### P TT, CBC, CK, PT, HS TROP, CMP, BNP #### [address] Troponin I High Sensitivity 1446.7 pg/mL Off scale high 0.0-15.0 [facility] Comment on above: Result Comment: Crit ical Result : Called to and read back by: ADLOFO NUGENT at: 03/09/2024 22:08:25 by:GOYO PERFORMED BY: [place] [address] PATHOLOGIST STEEL BURNER CHRISTIANE EVANS M.D. Performed By: #### P TT, CBC, CK, PT, HS TROP, CMP, BNP #### [facility] [address] [place] [address] Troponin I.cardiac [Mass/vol ume] in Serum or Plasma by Detection limit <= 0.01 ng/Ordered By: Aravind Jackson on 03-09-2024 Troponin I.cardiac DL <= 0.01 ng/mL [Mass/Vol] 1446.7 pg/mL 0.0-15.0 [facility] Comment on above: Critical Result : Ca lled to and read back by: ADOLFO NUGENT at: 03/09/2024 22:08:25 by:GOYO Urea nitrogen [Mass/volume] in Serum or PlasmaOrdered By: Aravind Jackson on 03-09-2024 Urea nitrogen [Mass/Vol] 25 mg/dL Normal - [facility] Comment on above: Performed By: #### P TT, CBC, CK, PT, HS TROP, CMP, BNP #### [address] XR chest 1V portableon 03-09 XR chest 1V portable [facility] [place] [address] XRay Report Signed Patient: Milind Tate MR#: [id number] : 1935 Acct:[id number] Age/Sex: 88 / F ADM Date: 03/09/24 Loc: Room: Type: [facility] Attending Dr: Everett Lawson DO Copies to: MD Everett Stephneson Jr, DO Ordering Provider: Aravind Jackson Jr, [...] Frederic Granger M.D.03/09/2024 9:26 PM Dictation Location: [facility]--13 Transcribed By: STUART 03/09/242125 Dictated By: Frederic Granger II, MD 03/09/242125 Signed By: 03/09/242125 Normal [facility] Urine Cultureon 08-11-2023 Bacteria identified Cx Nom (U) No Growth 2 Days PERFORMED BY: [place] [address] PATHOLOGIST STEEL BURNER CHRISTIANE EVANS M.D. Normal [facility] Comment on above: Performed By: #### P TT, CBC, CK, PT, HS TROP, CMP, BNP #### [address] Bacteria identified Cx Nom (U) [employer] Other UPPER EXTREMITY INJECTION: L extensor compartment [...] fashion. The patient was prepped with alcohol. [facility] Radiology Study observation (narrative) [facility] XR WRIST LEFT 3 VIEWSon 03-24 XR [...] joint effusion or soft tissue edema. Normal [facility] UA RANDOMon 01-28-2023 Bilirubin Ql (U) Negative Normal NEGATIVE [facility] Comment on above: Performed By: #### U A #### [facility] [address] [place] [address] Dr. Jaja Meadows Clarity (U) CLEAR Normal CLEAR [facility] Comment on above: Performed By: #### U A #### [facility] [address] [place] [address] Dr. Jaja Meadows Color (U) LT. YELLOW Normal YELLOW [facility] Comment on above: Performed By: #### U A #### [facility] [address] [place] [address] Dr. Jaja Meadows Glucose Ql (U) Negative Normal NEGATIVE [facility] Comment on above: Performed By: #### U A #### [facility] [address] [place] [address] Dr. Jaja Meadows Hemoglobin Ql (U) TRACE-INTACT Abnormal NEGATIVE [facility] Comment on above: Performed By: #### U A #### [facility] [address] [place] [address] Dr. Jaja Meadows Ketones Ql (U) Negative Normal NEGATIVE [facility] Comment on above: Performed By: #### U A #### [facility] [address] [place] [address] Dr. Jaja Meadows LEUKOCYTES SMALL Abnormal NEGATIVE [facility] Comment on above: Performed By: #### U A #### [facility] [address] [place] [address] Dr. Jaja Meadows Nitrite Ql (U) Positive Abnormal NEGATIVE [facility] Comment on above: Performed By: #### U A #### [facility] [address] [place] [address] Dr. Jaja Meadows pH (U) 6.0 [pH] Normal 5-9 [facility] Comment on above: Performed By: #### U A #### [facility] [address] [place] [address] Dr. Jaaj Meadows SPEC GRAVITY <=1.005 Abnormal 1.005-<=1. 025 [facility] Comment on above: Performed By: #### U A #### [facility] [address] [place] [address] Dr. Jaja Meadows UA PROTEIN Negative Normal NEGATIVE/ TRACE [facility] Comment on above: Performed By: #### U A #### [facility] [address] [place] [address] Dr. Jaja Meadows Urobilinogen Qn (U) 0.2 {Son'U}/dL Normal 0.2 - 1. 0 [facility] Comment on above: Performed By: #### U A #### [facility] [address] [place] [address] Dr. Jaja Meadows Office Visit (Cardiology)on 12-28-2022 Follow-up visit Diagnoses/Problems Assessed Takotsubo syndrome (429.83) (I51.81) Body mass index (BMI) of 24.0 to 24.9 in adult (V85.1) (Z68.24) Never a smoker Orders SocHx: Never a smoker Tobacco Use Screening; Status:Complete; Done: [id number] Takotsubo syndrome Start: Aspirin 81 MG Oral [...] Recorded: 28Dec2022 03:12PM Heart Rate58, R Radial Kftfdudu602, LUE, Sitting Nequcyjku09, LUE, Sitting Height5 ft 1 in Vygwhm354 lb BMI Rzrnhdtzlv78.56 kg/m2 BSA Calculated1.57 Tobacco Useb) No PHQ-2 [...] a) No falls within the last year [facility] DO Work Phone: Tobacco use status CP b) No [facility] [place] [facility] DO Work Phone: PHQ-2 VITALS Yes [facility] DO Work Phone: [...] Trimethoprim/Sulfamethoxa zole <=20 S F Normal [facility] Comment on above: Performed By: #### P TT, PT #### [facility] [address] [place] [address] Dr. Jaja Meadows CBC AUTO DIFFon 10-28-2022 BASO # 0.0 103/ul Normal 0.0-0.1 [facility] Comment on above: Performed By: #### P TT, PT #### [facility] [address] [place] [address] Dr. Jaja Meadows Basophils/100 WBC (Bld) 0.6 % Normal 0.2-2.0 [facility] Comment on above: Performed By: #### P TT, PT #### [facility] [address] [place] [address] Dr. Jaja Meadows EO # 0.2 103/ul Normal 0.0-0.7 [facility] Comment on above: Performed By: #### P TT, PT #### [facility] [address] [place] [address] Dr. Jaja Meadows Eosinophils/100 WBC (Bld) 2.9 % Normal 0.9-7.0 [facility] Comment on above: Performed By: #### P TT, PT #### [facility] [address] [place] [address] Dr. Jaja Meadows Erythrocyte distribution width (RBC) [Ratio] 12.4 % Normal 11.0-15.0 [facility] Comment on above: Performed By: #### P TT, PT #### [facility] [address] [place] [address] Dr. Jaja Meadows Hematocrit (Bld) [Volume fraction] 39.6 % Normal 36.0-48.0 [facility] Comment on above: Performed By: #### P TT, PT #### [facility] [address] [place] [address] Dr. Jaja Meadows Hemoglobin (Bld) [Mass/Vol] 12.7 g/dL Normal 12.0-16.0 [facility] Comment on above: Performed By: #### P TT, PT #### [facility] [address] [place] [address] Dr. Jaja Meadows IG # 0.03 10e3/ul Normal 0.00-0.03 [facility] Comment on above: Performed By: #### P TT, PT #### [facility] [address] [place] [address] Dr. Jaja Meadows IG % 0.5 % Normal 0.0-0.5 [facility] Comment on above: Performed By: #### P TT, PT #### [facility] [address] [place] [address] Dr. Jaja Meadows LYMPH # 1.9 103/ul Normal 1.2-3.8 [facility] Comment on above: Performed By: #### P TT, PT #### [facility] [address] [place] [address] Dr. Jaja Meadows Lymphocytes/100 WBC (Bld) 30.3 % Normal 20.5-60.0 [facility] Comment on above: Performed By: #### P TT, PT #### [facility] [address] [place] [address] Dr. Jaja Meadows MANUAL DIFF REQ NO Normal [facility] Comment on above: Performed By: #### P TT, PT #### [facility] [address] [place] [address] Dr. Jaja Meadows MCH (RBC) [Entitic mass] 31.5 pg Normal 26.7-34.0 [facility] Comment on above: Performed By: #### P TT, PT #### [facility] [address] [place] [address] Dr. Jaja Meadows MCHC (RBC) [Mass/Vol] 32.1 g/dL Normal 29.9-35.2 [facility] Comment on above: Performed By: #### P TT, PT #### [facility] [address] [place] [address] Dr. Jaja Meadows MCV (RBC) [Entitic vol] 98.3 fL Normal 81.0-99.0 [facility] Comment on above: Performed By: #### P TT, PT #### [facility] [address] [place] [address] Dr. Jaja Meadows MONO # 0.6 103/ul Normal 0.3-0.8 [facility] Comment on above: Performed By: #### P TT, PT #### [facility] [address] [place] [address] Dr. Jaja Meadows Monocytes/100 WBC (Bld) 9.7 % Normal 1.7-12.0 [facility] Comment on above: Performed By: #### P TT, PT #### [facility] [address] [place] [address] Dr. Jaja Meadows NEUT # 3.5 103/ul Normal 1.4-6.5 [facility] Comment on above: Performed By: #### P TT, PT #### [facility] [address] [place] [address] Dr. Jaja Meadows Neutrophils/100 WBC (Bld) 56.0 % Normal 43.0-75.0 [facility] Comment on above: Performed By: #### P TT, PT #### [facility] [address] [place] [address] Dr. Jaja Meadows Platelet mean volume (Bld) [Entitic vol] 9.6 fL Normal 9.5-13.5 [facility] Comment on above: Performed By: #### P TT, PT #### [facility] [address] [place] [address] Dr. Jaja Meadows PLT 155 103/ul Normal 150-450 [facility] Comment on above: Performed By: #### P TT, PT #### [facility] [address] [place] [address] Dr. Jaja Meadows RBC 4.03 106/ul Critically low 4.20-5.40 [facility] Comment on above: Performed By: #### P TT, PT #### [facility] [address] [address] [address] Jaja Meadows WBC 6.3 103/ul Normal 4.0-11.0 [facility] Comment on above: Performed By: #### P TT, PT #### [facility] [address] [address] [address] Jaja Meadows Covid-19 PCR (CVDTBH)on SARS-CoV-2 (COVID-19) RNA GASTON+probe Ql (Unsp spec) Not detected Normal NOT DETECTED [facility] Comment on above: Result Comment: When [...] for this test is supported by the [place] of Health and Human Service's declaration that [...] Performed By: #### P TT, PT #### [facility] [address] [place] [address] Dr. Jaja Meadows PROF CHEM 8 (BAS METB)on Anion gap [Moles/Vol] 11.1 mmol/L Normal [facility] Comment on above: Performed By: #### C VDTBH #### [facility] [address] [place] [address] Dr. Jaja Meadows Calcium [Mass/Vol] 8.1 mg/dL Critically low 8.5-10.1 [facility] Comment on above: Performed By: #### C VDTBH #### [facility] [address] [place] [address] Dr. Jaja Meadows Chloride [Moles/Vol] 109 mmol/L Critically high 98-107 [facility] Comment on above: Performed By: #### C VDTBH #### [facility] [address] [place] [address] Dr. Jaja Meadows CO2 [Moles/Vol] 25.8 mmol/L Normal 21.0-32.0 [facility] Comment on above: Performed By: #### C VDTBH #### [facility] [address] [place] [address] Dr. Jaja Meadows Creatinine [Mass/Vol] 0.89 mg/dL Normal 0.55-1.02 [facility] Comment on above: Performed By: #### C VDTBH #### [facility] [address] [place] [address] Dr. Jaja Meadows EGFR-AF BELGIAN >60 Normal >=60 [facility] Comment on above: Performed By: #### C VDTBH #### [facility] [address] [place] [address] Dr. Jaja Meadows EGFR-NON AF BELGIAN 60 mL/min/1.73m2 Normal >=60 [facility] Comment on above: Performed By: #### C VDTBH #### [facility] [address] [place] [address] Dr. Jaja Meadows Glucose [Mass/Vol] 92 mg/dL Normal 74-106 [facility] Comment on above: Performed By: #### C VDTBH #### [facility] [address] [place] [address] Dr. Jaja Meadows Potassium [Moles/Vol] 3.9 mmol/L Normal 3.5-5.1 [facility] Comment on above: Performed By: #### C VDTBH #### [facility] [address] [place] [address] Dr. Jaja Meadows Sodium [Moles/Vol] 142 mmol/L Normal 136-145 [facility] Comment on above: Performed By: #### C VDTBH #### [facility] [address] [place] [address] Dr. Jaja Meadows Urea nitrogen [Mass/Vol] 17.0 mg/dL Normal 7.0-18.0 [facility] Comment on above: Performed By: #### C VDTBH #### [facility] [address] [place] [address] Dr. Jaja Meadows Urea nitrogen/Creatinine [Mass ratio] 19.1 mg/mg Normal [facility] Comment on above: Performed By: #### C VDTBH #### [facility] [address] [place] [address] Dr. Jaja Meadows CBC AUTO DIFFon 10-27-2022 BASO # 0.0 103/ul Normal 0.0-0.1 [facility] Comment on above: Performed By: #### C BC #### [facility] [address] [place] [address] Dr. Jaja Meadows Basophils/100 WBC (Bld) 0.5 % Normal 0.2-2.0 [facility] Comment on above: Performed By: #### C BC #### [facility] [address] [place] [address] Dr. Jaja Meadows EO # 0.1 103/ul Normal 0.0-0.7 [facility] Comment on above: Performed By: #### C BC #### [facility] [address] [place] [address] Dr. Jaja Meadows Eosinophils/100 WBC (Bld) 2.5 % Normal 0.9-7.0 [facility] Comment on above: Performed By: #### C BC #### [facility] [address] [place] [address] Dr. Jaja Meadows Erythrocyte distribution width (RBC) [Ratio] 12.7 % Normal 11.0-15.0 [facility] Comment on above: Performed By: #### C BC #### [facility] [address] [place] [address] Dr. Jaja Meadows Hematocrit (Bld) [Volume fraction] 38.7 % Normal 36.0-48.0 [facility] Comment on above: Performed By: #### C BC #### [facility] [address] [place] [address] Dr. Jaja Meadows Hemoglobin (Bld) [Mass/Vol] 12.6 g/dL Normal 12.0-16.0 [facility] Comment on above: Performed By: #### C BC #### [facility] [address] [place] [address] Dr. Jaja Meadows IG # 0.01 10e3/ul Normal 0.00-0.03 [facility] Comment on above: Performed By: #### C BC #### [facility] [address] [place] [address] Dr. Jaja Meadows IG % 0.2 % Normal 0.0-0.5 [facility] Comment on above: Performed By: #### C BC #### [facility] [address] [place] [address] Dr. Jaja Meadows LYMPH # 2.2 103/ul Normal 1.2-3.8 [facility] Comment on above: Performed By: #### C BC #### [facility] [address] [place] [address] Dr. Jaja Meadows Lymphocytes/100 WBC (Bld) 39.0 % Normal 20.5-60.0 [facility] Comment on above: Performed By: #### C BC #### [facility] [address] [place] [address] Dr. Jaja Meadows MANUAL DIFF REQ NO Normal [facility] Comment on above: Performed By: #### C BC #### [facility] [address] [place] [address] Dr. Jaja Meadows MCH (RBC) [Entitic mass] 32.1 pg Normal 26.7-34.0 [facility] Comment on above: Performed By: #### C BC #### [facility] [address] [place] [address] Dr. Jaja Meadows MCHC (RBC) [Mass/Vol] 32.6 g/dL Normal 29.9-35.2 [facility] Comment on above: Performed By: #### C BC #### [facility] [address] [address] [address] Jaja Meadows MCV (RBC) [Entitic vol] 98.5 fL Normal 81.0-99.0 [facility] Comment on above: Performed By: #### C BC #### [facility] [address] [address] [address] Jaja Meadows MONO # 0.6 103/ul Normal 0.3-0.8 [facility] Comment on above: Performed By: #### C BC #### [facility] [address] [address] [address] Jaja Meadows Monocytes/100 WBC (Bld) 10.7 % Normal 1.7-12.0 [facility] Comment on above: Performed By: #### C BC #### [facility] [address] [address] [address] Jaja Meadows NEUT # 2.6 103/ul Normal 1.4-6.5 [facility] Comment on above: Performed By: #### C BC #### [facility] [address] [address] [address] Jaja Meadows Neutrophils/100 WBC (Bld) 47.1 % Normal 43.0-75.0 [facility] Comment on above: Performed By: #### C BC #### [facility] [address] [address] [address] Jaja Meadows Platelet mean volume (Bld) [Entitic vol] 9.8 fL Normal 9.5-13.5 [facility] Comment on above: Performed By: #### C BC #### [facility] [address] [address] [address] Jaja Meadows PLT 163 103/ul Normal 150-450 [facility] Comment on above: Performed By: #### C BC #### [facility] [address] [address] [address] Jaja Meadows RBC 3.93 106/ul Critically low 4.20-5.40 [facility] Comment on above: Performed By: #### C BC #### [facility] [address] [address] [address] Jaja Meadows WBC 5.5 103/ul Normal 4.0-11.0 [facility] Comment on above: Performed By: #### C BC #### [facility] [address] [address] [address] Jaja Meadows PROF CHEM 8 (BAS METB)on Anion gap [Moles/Vol] 8.8 mmol/L Normal [facility] Comment on above: Performed By: #### C VDTBH #### [facility] [address] [place] [address] Dr. Jaja Meadows Calcium [Mass/Vol] 8.1 mg/dL Critically low 8.5-10.1 [facility] Comment on above: Performed By: #### C VDTBH #### [facility] [address] [place] [address] Dr. Jaja Meadows Chloride [Moles/Vol] 110 mmol/L Critically high 98-107 [facility] Comment on above: Performed By: #### C VDTBH #### [facility] [address] [place] [address] Dr. Jaja Meadows CO2 [Moles/Vol] 27.9 mmol/L Normal 21.0-32.0 [facility] Comment on above: Performed By: #### C VDTBH #### [facility] [address] [place] [address] Dr. Jaja Meadows Creatinine [Mass/Vol] 0.93 mg/dL Normal 0.55-1.02 [facility] Comment on above: Performed By: #### C VDTBH #### [facility] [address] [place] [address] Dr. Jaja Meadows EGFR-AF BELGIAN >60 Normal >=60 [facility] Comment on above: Performed By: #### C VDTBH #### [facility] [address] [place] [address] Dr. Jaja Meadows EGFR-NON AF BELGIAN 57 mL/min/1.73m2 Critically low >=60 [facility] Comment on above: Performed By: #### C VDTBH #### [facility] [address] [address] [address] Jaja Meadows Glucose [Mass/Vol] 95 mg/dL Normal 74-106 [facility] Comment on above: Performed By: #### C VDTBH #### [facility] [address] [place] [address] Dr. Jaja Meadows Potassium [Moles/Vol] 3.7 mmol/L Normal 3.5-5.1 [facility] Comment on above: Performed By: #### C VDTBH #### [facility] [address] [place] [address] Dr. Jaja Meadows Sodium [Moles/Vol] 143 mmol/L Normal 136-145 [facility] Comment on above: Performed By: #### C VDTBH #### [facility] [address] [place] [address] Dr. Jaja Meadows Urea nitrogen [Mass/Vol] 18.0 mg/dL Normal 7.0-18.0 [facility] Comment on above: Performed By: #### C VDTBH #### [facility] [address] [place] [address] Dr. Jaja Meadows Urea nitrogen/Creatinine [Mass ratio] 19.4 mg/mg Normal [facility] Comment on above: Performed By: #### C VDTBH #### [facility] [address] [place] [address] Dr. Jaja Meadows UA (CLEAN/CATCH) GUITAR REPAIRER/MICRO I F IND.on 10-27-2022 Bilirubin Ql (U) Negative Normal NEGATIVE [facility] Comment on above: Performed By: #### C VDTBH #### [facility] [address] [place] [address] Dr. Jaja Meadows Clarity (U) CLEAR Normal CLEAR [facility] Comment on above: Performed By: #### C VDTBH #### [facility] [address] [place] [address] Dr. Jaja Meadows Color (U) LT. YELLOW Normal YELLOW [facility] Comment on above: Performed By: #### C VDTBH #### [facility] [address] [place] [address] Dr. Jaja Meadows Glucose Ql (U) Negative Normal NEGATIVE [facility] Comment on above: Performed By: #### C VDTBH #### [facility] [address] [place] [address] Dr. Jaja Meadows Hemoglobin Ql (U) SMALL Abnormal NEGATIVE [facility] Comment on above: Performed By: #### C VDTBH #### [facility] [address] [place] [address] Dr. Jaja Meadows Ketones Ql (U) Negative Normal NEGATIVE [facility] Comment on above: Performed By: #### C VDTBH #### [facility] [address] [place] [address] Dr. Jaja Meadows LEUKOCYTES LARGE Abnormal NEGATIVE [facility] Comment on above: Performed By: #### C VDTBH #### [facility] [address] [place] [address] Dr. Jaja Meadows Nitrite Ql (U) Positive Abnormal NEGATIVE [facility] Comment on above: Performed By: #### C VDTBH #### [facility] [address] [place] [address] Dr. Jaja Meadows pH (U) 6.5 [pH] Normal 5-9 [facility] Comment on above: Performed By: #### C VDTBH #### [facility] [address] [place] [address] Dr. Jaja Meadows SPEC GRAVITY 1.015 Normal 1.005-<=1. 025 [facility] Comment on above: Performed By: #### C VDTBH #### [facility] [address] [place] [address] Dr. Jaja Meadows UA PROTEIN Negative Normal NEGATIVE/ TRACE [facility] Comment on above: Performed By: #### C VDTBH #### [facility] [address] [place] [address] Dr. Jaja Meadows UR MICRO IND INDICATED Normal [facility] Comment on above: Performed By: #### C VDTBH #### [facility] [address] [place] [address] Dr. Jaja Meadows Urobilinogen Qn (U) 0.2 {Son'U}/dL Normal 0.2 - 1. 0 [facility] Comment on above: Performed By: #### C VDTB #### [facility] [address] [place] [address] Dr. Jaja Meadows URINE MICROSCOPIC ONLYon BACTERIA MODERATE Abnormal NONE SEEN [facility] Comment on above: Performed By: #### B MP #### [facility] [address] [place] [address] Dr. Jaja Meadows Bacteria identified Cx Nom (U) INDICATED Normal [facility] Comment on above: Performed By: #### B MP #### [facility] [address] [place] [address] Dr. Jaja Meadows CAST NONE SEEN Normal NONE SEEN [facility] Comment on above: Performed By: #### B MP #### [facility] [address] [place] [address] Dr. Jaja Meadows Crystals LM Nom (Urine sed) NONE SEEN Normal NONE SEEN [facility] Comment on above: Performed By: #### B MP #### [facility] [address] [place] [address] Dr. Jaja Meadows Epithelial cells LM Ql (Urine sed) FEW Abnormal NONE SEEN /RARE [facility] Comment on above: Performed By: #### B MP #### [facility] [address] [place] [address] Dr. Jaja Meadows MUCOUS TRACE Abnormal NONE SEEN [facility] Comment on above: Performed By: #### B MP #### [facility] [address] [place] [address] Dr. Jaja Meadows RBC 5-10 Abnormal 0-2 [facility] Comment on above: Performed By: #### B MP #### [facility] [address] [place] [address] Dr. Jaja Meadows WBC 50-75 Abnormal NONE SEEN [facility] Comment on above: Performed By: #### B MP #### [facility] [address] [place] [address] Dr. Jaja Meadows CBC AUTO DIFFon 10-26-2022 BASO # 0.0 103/ul Normal 0.0-0.1 [facility] Comment on above: Performed By: #### C BC #### [facility] [address] [place] [address] Dr. Jaja Meadows Basophils/100 WBC (Bld) 0.6 % Normal 0.2-2.0 [facility] Comment on above: Performed By: #### C BC #### [facility] [address] [place] [address] Dr. Jaja Meadows EO # 0.1 103/ul Normal 0.0-0.7 [facility] Comment on above: Performed By: #### C BC #### [facility] [address] [place] [address] Dr. Jaja Meadows Eosinophils/100 WBC (Bld) 0.8 % Critically low 0.9-7.0 [facility] Comment on above: Performed By: #### C BC #### [facility] [address] [place] [address] Dr. Jaja Meadows Erythrocyte distribution width (RBC) [Ratio] 12.5 % Normal 11.0-15.0 [facility] Comment on above: Performed By: #### C BC #### [facility] [address] [place] [address] Dr. Jaja Meadows Hematocrit (Bld) [Volume fraction] 41.7 % Normal 36.0-48.0 [facility] Comment on above: Performed By: #### C BC #### [facility] [address] [place] [address] Dr. Jaja Meadows Hemoglobin (Bld) [Mass/Vol] 13.7 g/dL Normal 12.0-16.0 [facility] Comment on above: Performed By: #### C BC #### [facility] [address] [place] [address] Dr. Jaja Meadows IG # 0.03 10e3/ul Normal 0.00-0.03 [facility] Comment on above: Performed By: #### C BC #### [facility] [address] [place] [address] Dr. Jaja Meadows IG % 0.4 % Normal 0.0-0.5 [facility] Comment on above: Performed By: #### C BC #### [facility] [address] [place] [address] Dr. Jaja Meadows LYMPH # 1.6 103/ul Normal 1.2-3.8 [facility] Comment on above: Performed By: #### C BC #### [facility] [address] [place] [address] Dr. Jaja Meadows Lymphocytes/100 WBC (Bld) 22.2 % Normal 20.5-60.0 [facility] Comment on above: Performed By: #### C BC #### [facility] [address] [place] [address] Dr. Jaja Meadows MANUAL DIFF REQ NO Normal [facility] Comment on above: Performed By: #### C BC #### [facility] [address] [place] [address] Dr. Jaja Meadows MCH (RBC) [Entitic mass] 31.6 pg Normal 26.7-34.0 [facility] Comment on above: Performed By: #### C BC #### [facility] [address] [place] [address] Dr. Jaja Meadows MCHC (RBC) [Mass/Vol] 32.9 g/dL Normal 29.9-35.2 [facility] Comment on above: Performed By: #### C BC #### [facility] [address] [place] [address] Dr. Jaja Meadows MCV (RBC) [Entitic vol] 96.3 fL Normal 81.0-99.0 [facility] Comment on above: Performed By: #### C BC #### [facility] [address] [place] [address] Dr. Jaja Meadows MONO # 0.7 103/ul Normal 0.3-0.8 [facility] Comment on above: Performed By: #### C BC #### [facility] [address] [place] [address] Dr. Jaja Meadows Monocytes/100 WBC (Bld) 9.9 % Normal 1.7-12.0 [facility] Comment on above: Performed By: #### C BC #### [facility] [address] [place] [address] Dr. Jaja Meadows NEUT # 4.7 103/ul Normal 1.4-6.5 [facility] Comment on above: Performed By: #### C BC #### [facility] [address] [place] [address] Dr. Jaja Meadows Neutrophils/100 WBC (Bld) 66.1 % Normal 43.0-75.0 [facility] Comment on above: Performed By: #### C BC #### [facility] [address] [place] [address] Dr. Jaja Meadows Platelet mean volume (Bld) [Entitic vol] 9.5 fL Normal 9.5-13.5 [facility] Comment on above: Performed By: #### C BC #### [facility] [address] [place] [address] Dr. Jaja Meadows PLT 173 103/ul Normal 150-450 [facility] Comment on above: Performed By: #### C BC #### [facility] [address] [place] [address] Dr. Jaja Meadows RBC 4.33 106/ul Normal 4.20-5.40 [facility] Comment on above: Performed By: #### C BC #### [facility] [address] [place] [address] Dr. Jaja Meadows WBC 7.1 103/ul Normal 4.0-11.0 [facility] Comment on above: Performed By: #### C BC #### [facility] [address] [place] [address] Dr. Jaja Meadows PROF CHEM 8 (BAS METB)on Anion gap [Moles/Vol] 9.5 mmol/L Normal [facility] Comment on above: Performed By: #### B MP #### [facility] [address] [place] [address] Dr. Jaja Meadows Calcium [Mass/Vol] 8.5 mg/dL Normal 8.5-10.1 [facility] Comment on above: Performed By: #### B MP #### [facility] [address] [address] [address] Jaja Meadows Chloride [Moles/Vol] 106 mmol/L Normal 98-107 [facility] Comment on above: Performed By: #### B MP #### [facility] [address] [address] [address] Jaja Meadows CO2 [Moles/Vol] 28.2 mmol/L Normal 21.0-32.0 [facility] Comment on above: Performed By: #### B MP #### [facility] [address] [place] [address] Dr. Jaja Meadows Creatinine [Mass/Vol] 0.99 mg/dL Normal 0.55-1.02 [facility] Comment on above: Performed By: #### B MP #### [facility] [address] [address] [address] Jaja Meadows EGFR-AF BELGIAN >60 Normal >=60 [facility] Comment on above: Performed By: #### B MP #### [facility] [address] [address] [address] Jaja Meadows EGFR-NON AF BELGIAN 53 mL/min/1.73m2 Critically low >=60 [facility] Comment on above: Performed By: #### B MP #### [facility] [address] [address] [address] Jaja Meadows Glucose [Mass/Vol] 107 mg/dL Critically high 74-106 [facility] Comment on above: Performed By: #### B MP #### [facility] [address] [address] [address] Jaja Meadows Potassium [Moles/Vol] 3.7 mmol/L Normal 3.5-5.1 [facility] Comment on above: Performed By: #### B MP #### [facility] [address] [address] [address] Jaja Meadows Sodium [Moles/Vol] 140 mmol/L Normal 136-145 [facility] Comment on above: Performed By: #### B MP #### [facility] [address] [place] [address] Dr. Jaja Meadows Urea nitrogen [Mass/Vol] 18.0 mg/dL Normal 7.0-18.0 [facility] Comment on above: Performed By: #### B MP #### [facility] [address] [place] [address] Dr. Jaja Meadows Urea nitrogen/Creatinine [Mass ratio] 18.2 mg/mg Normal [facility] Comment on above: Performed By: #### B MP #### [facility] [address] [place] [address] Dr. Jaja Meadows CBC AUTO DIFFon 10-25-2022 BASO # 0.0 103/ul Normal 0.0-0.1 [facility] Comment on above: Performed By: #### P TT, PT #### [facility] [address] [place] [address] Dr. Jaja Meadows Basophils/100 WBC (Bld) 0.3 % Normal 0.2-2.0 [facility] Comment on above: Performed By: #### P TT, PT #### [facility] [address] [place] [address] Dr. Jaja Meadows EO # 0.0 103/ul Normal 0.0-0.7 [facility] Comment on above: Performed By: #### P TT, PT #### [facility] [address] [place] [address] Dr. Jaja Meadows Eosinophils/100 WBC (Bld) 0.1 % Critically low 0.9-7.0 [facility] Comment on above: Performed By: #### P TT, PT #### [facility] [address] [place] [address] Dr. Jaja Meadows Erythrocyte distribution width (RBC) [Ratio] 12.3 % Normal 11.0-15.0 [facility] Comment on above: Performed By: #### P TT, PT #### [facility] [address] [place] [address] Dr. Jaja Meadows Hematocrit (Bld) [Volume fraction] 40.5 % Normal 36.0-48.0 [facility] Comment on above: Performed By: #### P TT, PT #### [facility] [address] [place] [address] Dr. Jaja Meadows Hemoglobin (Bld) [Mass/Vol] 13.7 g/dL Normal 12.0-16.0 [facility] Comment on above: Performed By: #### P TT, PT #### [facility] [address] [place] [address] Dr. Jaja Meadows IG # 0.03 10e3/ul Normal 0.00-0.03 [facility] Comment on above: Performed By: #### P TT, PT #### [facility] [address] [place] [address] Dr. Jaja Meadows IG % 0.3 % Normal 0.0-0.5 [facility] Comment on above: Performed By: #### P TT, PT #### [facility] [address] [place] [address] Dr. Jaja Meadows LYMPH # 0.8 103/ul Critically low 1.2-3.[address] [facility] Comment on above: Performed By: #### P TT, PT #### [facility] [address] [place] [address] Dr. Jaja Meadows Lymphocytes/100 WBC (Bld) 8.5 % Critically low 20.5-60.0 [facility] Comment on above: Performed By: #### P TT, PT #### [facility] [address] [place] [address] Dr. Jaja Meadows MANUAL DIFF REQ NO Normal [facility] Comment on above: Performed By: #### P TT, PT #### [facility] [address] [place] [address] Dr. Jaja Meadows MCH (RBC) [Entitic mass] 32.2 pg Normal 26.7-34.0 [facility] Comment on above: Performed By: #### P TT, PT #### [facility] [address] [place] [address] Dr. Jaja Meadows MCHC (RBC) [Mass/Vol] 33.8 g/dL Normal 29.9-35.2 [facility] Comment on above: Performed By: #### P TT, PT #### [facility] [address] [address] [address] Jaja Meadows MCV (RBC) [Entitic vol] 95.1 fL Normal 81.0-99.0 [facility] Comment on above: Performed By: #### P TT, PT #### [facility] [address] [address] [address] Jaja Meadows MONO # 0.7 103/ul Normal 0.3-0.8 [facility] Comment on above: Performed By: #### P TT, PT #### [facility] [address] [place] [address] Dr. Jaja Meadows Monocytes/100 WBC (Bld) 7.4 % Normal 1.7-12.0 [facility] Comment on above: Performed By: #### P TT, PT #### [facility] [address] [place] [address] Dr. Jaja Meadows NEUT # 7.5 103/ul Critically high 1.4-6.5 [facility] Comment on above: Performed By: #### P TT, PT #### [facility] [address] [place] [address] Dr. Jaja Meadows Neutrophils/100 WBC (Bld) 83.4 % Critically high 43.0-75.0 [facility] Comment on above: Performed By: #### P TT, PT #### [facility] [address] [place] [address] Dr. Jaja Meadows Platelet mean volume (Bld) [Entitic vol] 9.6 fL Normal 9.5-13.5 [facility] Comment on above: Performed By: #### P TT, PT #### [facility] [address] [place] [address] Dr. Jaja Meadows PLT 159 103/ul Normal 150-450 [facility] Comment on above: Performed By: #### P TT, PT #### [facility] [address] [place] [address] Dr. Jaja Meadows RBC 4.26 106/ul Normal 4.20-5.40 [facility] Comment on above: Performed By: #### P TT, PT #### [facility] [address] [place] [address] Dr. Jaja Meadows WBC 9.1 103/ul Normal 4.0-11.0 [facility] Comment on above: Performed By: #### P TT, PT #### [facility] [address] [place] [address] Dr. Jaja Meadows Covid-19 PCR (CVDTBH)on SARS-CoV-2 (COVID-19) RNA GASTON+probe Ql (Unsp spec) Not detected Normal NOT DETECTED [facility] Comment on above: Result Comment: When [...] for this test is supported by the Parts Clerk of Health and Human Service's declaration that [...] used). Performed By: #### C VDTBH #### [facility] [address] [place] [address] Dr. Jaja Meadows PROF CHEM 8 (BAS METB)on Anion gap [Moles/Vol] 15.6 mmol/L Normal Th [facility] Comment on above: Performed By: #### P TT, PT #### [facility] [address] [place] [address] Dr. Jaja Meadows Calcium [Mass/Vol] 8.6 mg/dL Normal 8.5-10.1 [facility] Comment on above: Performed By: #### P TT, PT #### [facility] [address] [address] [address] Jaja Meadows Chloride [Moles/Vol] 104 mmol/L Normal 98-107 [facility] Comment on above: Performed By: #### P TT, PT #### [facility] [address] [place] [address] Dr. Jaja Meadows CO2 [Moles/Vol] 23.6 mmol/L Normal 21.0-32.0 [facility] Comment on above: Performed By: #### P TT, PT #### [facility] [address] [place] [address] Dr. Jaja Meadows Creatinine [Mass/Vol] 1.08 mg/dL Critically high 0.55-1.02 [facility] Comment on above: Performed By: #### P TT, PT #### [facility] [address] [place] [address] Dr. Jaja Meadows EGFR-AF BELGIAN 58 mL/min/1.73m2 Critically low >=60 [facility] Comment on above: Performed By: #### P TT, PT #### [facility] [address] [place] [address] Dr. Jaja Meadows EGFR-NON AF BELGIAN 48 mL/min/1.73m2 Critically low >=60 [facility] Comment on above: Performed By: #### P TT, PT #### [facility] [address] [place] [address] Dr. Jaja Meadows Glucose [Mass/Vol] 143 mg/dL Critically high 74-106 [facility] Comment on above: Performed By: #### P TT, PT #### [facility] [address] [place] [address] Dr. Jaja Meadows Potassium [Moles/Vol] 4.2 mmol/L Normal 3.5-5.1 [facility] Comment on above: Performed By: #### P TT, PT #### [facility] [address] [place] [address] Dr. Jaja Meadows Sodium [Moles/Vol] 139 mmol/L Normal 136-145 [facility] Comment on above: Performed By: #### P TT, PT #### [facility] [address] [place] [address] Dr. Jaja Meadows Urea nitrogen [Mass/Vol] 29.0 mg/dL Critically high 7.0-18.0 [facility] Comment on above: Performed By: #### P TT, PT #### [facility] [address] [address] [address] Jaja Meadows Urea nitrogen/Creatinine [Mass ratio] 26.9 mg/mg Normal [facility] Comment on above: Performed By: #### P TT, PT #### [facility] [address] [address] [address] Jaja Meadows Echocardiogramon 06-07-[address], [address], [place] [address] TRANSTHORACIC ECHOCARDIOGRAM REPORT Patient Name: MILIND Federico Physician: [id number] Tylor Shanks MD, [facility] Study Date: 06/07/2022 Referring [id number] ISMAEL LAWSON Physician: MRN/PID: [id number] PCP: Sara Blake Accession/Order#: [id number] [facility] Location: Date of : 1935 Fellow: Gender: F Nurse: Admit Date: Promotional Representative: Rosalba Cedeno RD, T Height: 154.94 cm CC Report to: Weight: 56.70 kg Study Type: Echocardiogram BSA: 1.55 m2 Blood Pressure: 154 /82 mmHg Diagnosis/ICD: I51.81-Takotsubo syndrome Indication: Abnormal EKG-RBBB, HTN, MN-05/07/2022, Anxiety Procedure/CPT: Echo Limited-08887 Study Detail: The following Echo studies were [...] Normal Ranges: LVOT Diameter: 2.10 cm (1.8-2.4cm) [id number] Tylor Shanks MD, FACC Electronically signed on 06/13/2022 at 7:17:04 PM Final Normal [facility] Echocardiography Please click on the link to view the study images Normal [facility] [employer] [address] [place] Work Phone: Falls Screening (Age 18+)on 06-07-2022 Fall risk assessment a) No falls within the last year [facility] [address] [place] Work Phone: CULTURE URINEon [...] Trimethoprim/Sulfamethoxa zole <=20 S F Normal [facility] Comment on above: Performed By: #### P TT, PT #### [facility] [address] [place] [address] Dr. Jaja Meadows UA RANDOM W/MICROSCOPICon BACTERIA LARGE Abnormal NONE SEEN [facility] Comment on above: Performed By: #### P TT, PT #### [facility] [address] [place] [address] Dr. Jaja Meadows Bilirubin Ql (U) Negative Normal NEGATIVE [facility] Comment on above: Performed By: #### P TT, PT #### [facility] [address] [place] [address] Dr. Jaja Meadows CAST NONE SEEN Normal NONE SEEN [facility] Comment on above: Performed By: #### P TT, PT #### [facility] [address] [place] [address] Dr. Jaja Meadows Clarity (U) SL CLOUDY Abnormal CLEAR [facility] Comment on above: Performed By: #### P TT, PT #### [facility] [address] [place] [address] Dr. Jaja Meadows Color (U) LT. YELLOW Normal YELLOW [facility] Comment on above: Performed By: #### P TT, PT #### [facility] [address] [place] [address] Dr. Jaja Meadows Crystals LM Nom (Urine sed) NONE SEEN Normal NONE SEEN [facility] Comment on above: Performed By: #### P TT, PT #### [facility] [address] [place] [address] Dr. Jaja Meadows Epithelial cells LM Ql (Urine sed) FEW Abnormal NONE SEEN /RARE [facility] Comment on above: Performed By: #### P TT, PT #### [facility] [address] [place] [address] Dr. Jaja Meadows Glucose Ql (U) Negative Normal NEGATIVE [facility] Comment on above: Performed By: #### P TT, PT #### [facility] [address] [place] [address] Dr. Jaja Meadows Hemoglobin Ql (U) TRACE-INTACT Abnormal NEGATIVE [facility] Comment on above: Performed By: #### P TT, PT #### [facility] [address] [place] [address] Dr. Jaja Meadows Ketones Ql (U) Negative Normal NEGATIVE [facility] Comment on above: Performed By: #### P TT, PT #### [facility] [address] [place] [address] Dr. Jaja Meadows LEUKOCYTES TRACE Abnormal NEGATIVE [facility] Comment on above: Performed By: #### P TT, PT #### [facility] [address] [place] [address] Dr. Jaja Meadows MUCOUS NONE SEEN Normal NONE SEEN [facility] Comment on above: Performed By: #### P TT, PT #### [facility] [address] [place] [address] Dr. Jaja Meadows Nitrite Ql (U) Positive Abnormal NEGATIVE [facility] Comment on above: Performed By: #### P TT, PT #### [facility] [address] [place] [address] Dr. Jaja Meadows pH (U) 6.5 [pH] Normal 5-9 [facility] Comment on above: Performed By: #### P TT, PT #### [facility] [address] [place] [address] Dr. Jaja Meadows RBC 0-2 Normal 0-2 [facility] Comment on above: Performed By: #### P TT, PT #### [facility] [address] [place] [address] Dr. Jaja Meadows SPEC GRAVITY 1.020 Normal 1.005-<=1. 025 [facility] Comment on above: Performed By: #### P TT, PT #### [facility] [address] [place] [address] Dr. Jaja Meadows UA PROTEIN Negative Normal NEGATIVE/ TRACE [facility] Comment on above: Performed By: #### P TT, PT #### [facility] [address] [place] [address] Dr. Jaja Meadows Urobilinogen Qn (U) 0.2 {Son'U}/dL Normal 0.2 - 1. 0 [facility] Comment on above: Performed By: #### P TT, PT #### [facility] [address] [place] [address] Dr. Jaja Meadows WBC 20-50 Abnormal NONE SEEN [facility] Comment on above: Performed By: #### P TT, PT #### [facility] [address] [place] [address] Dr. Jaja Meadows TSHon 05-21-2022 TSH 2.591 uIU/mL Normal 0.358-3.74 0 [facility] Comment on above: Performed By: #### C VDTBH #### [facility] [address] [place] [address] Dr. Jaja Meadows VITAMIN B12on 05-21-2022 Cobalamin (Vitamin B12) [Mass/Vol] 403.0 pg/mL Normal 193.0-986. 0 [facility] Comment on above: Performed By: #### C VDTBH #### [facility] [address] [place] [address] Dr. Jaja Meadows Tobacco Screening.on 022 Fall risk assessment a) No falls within the last year [facility] [address] DO Work Phone: Tobacco use status CPHS b) No [facility] DO Work Phone: CBC AUTO DIFFon 05-07-2022 BASO # 0.0 103/ul Normal 0.0-0.1 [facility] Comment on above: Performed By: #### C VDTBH #### [facility] [address] [place] [address] Dr. Jaja Meadows Basophils/100 WBC (Bld) 0.4 % Normal 0.2-2.0 [facility] Comment on above: Performed By: #### C VDTBH #### [facility] [address] [place] [address] Dr. Jaja Meadows EO # 0.1 103/ul Normal 0.0-0.7 [facility] Comment on above: Performed By: #### C VDTBH #### [facility] [address] [place] [address] Dr. Jaja Meadows Eosinophils/100 WBC (Bld) 1.3 % Normal 0.9-7.0 [facility] Comment on above: Performed By: #### C VDTBH #### [facility] [address] [place] [address] Dr. Jaja Meadows Erythrocyte distribution width (RBC) [Ratio] 13.6 % Normal 11.0-15.0 [facility] Comment on above: Performed By: #### C VDTBH #### [facility] [address] [place] [address] Dr. Jaja Meadows Hematocrit (Bld) [Volume fraction] 41.4 % Normal 36.0-48.0 [facility] Comment on above: Performed By: #### C VDTBH #### [facility] [address] [place] [address] Dr. Jaja Meadows Hemoglobin (Bld) [Mass/Vol] 13.2 g/dL Normal 12.0-16.0 [facility] Comment on above: Performed By: #### C VDTBH #### [facility] [address] [place] [address] Dr. Jaja Meadows IG # 0.04 10e3/ul Critically high 0.00-0.03 [facility] Comment on above: Performed By: #### C VDTBH #### [facility] [address] [place] [address] Dr. Jaja Meadows IG % 0.6 % Critically high 0.0-0.5 [facility] Comment on above: Performed By: #### C VDTBH #### [facility] [address] [place] [address] Dr. Jaja Meadows LYMPH # 2.3 103/ul Normal 1.2-3.8 [facility] Comment on above: Performed By: #### C VDTBH #### [facility] [address] [place] [address] Dr. Jaja Meadows Lymphocytes/100 WBC (Bld) 34.0 % Normal 20.5-60.0 [facility] Comment on above: Performed By: #### C VDTBH #### [facility] [address] [place] [address] Dr. Jaja Meadows MANUAL DIFF REQ NO Normal [facility] Comment on above: Performed By: #### C VDTBH #### [facility] [address] [place] [address] Dr. Jaja Meadows MCH (RBC) [Entitic mass] 30.4 pg Normal 26.7-34.0 [facility] Comment on above: Performed By: #### C VDTBH #### [facility] [address] [place] [address] Dr. Jaja Meadows MCHC (RBC) [Mass/Vol] 31.9 g/dL Normal 29.9-35.2 [facility] Comment on above: Performed By: #### C VDTBH #### [facility] [address] [place] [address] Dr. Jaja Meadows MCV (RBC) [Entitic vol] 95.4 fL Normal 81.0-99.0 [facility] Comment on above: Performed By: #### C VDTBH #### [facility] [address] [place] [address] Dr. Jaja Meadows MONO # 0.5 103/ul Normal 0.3-0.8 [facility] Comment on above: Performed By: #### C VDTBH #### [facility] [address] [place] [address] Dr. Jaja Meadows Monocytes/100 WBC (Bld) 7.9 % Normal 1.7-12.0 [facility] Comment on above: Performed By: #### C VDTBH #### [facility] [address] [place] [address] Dr. Jaja Meadows NEUT # 3.8 103/ul Normal 1.4-6.5 [facility] Comment on above: Performed By: #### C VDTBH #### [facility] [address] [place] [address] Dr. Jaja Meadows Neutrophils/100 WBC (Bld) 55.8 % Normal 43.0-75.0 [facility] Comment on above: Performed By: #### C VDTBH #### [facility] [address] [place] [address] Dr. Jaja Meadows Platelet mean volume (Bld) [Entitic vol] 9.3 fL Critically low 9.5-13.5 [facility] Comment on above: Performed By: #### C VDTBH #### [facility] [address] [place] [address] Dr. Jaja Meadows PLT 245 103/ul Normal 150-450 [facility] Comment on above: Performed By: #### C VDTBH #### [facility] [address] [place] [address] Dr. Jaja Meadows RBC 4.34 106/ul Normal 4.20-5.40 [facility] Comment on above: Performed By: #### C VDTBH #### [facility] [address] [place] [address] Dr. Jaja Meadows WBC 6.9 103/ul Normal 4.0-11.0 [facility] Comment on above: Performed By: #### C VDTBH #### [facility] [address] [place] [address] Dr. Jaja Meadows [facility] SARS-CoV-2 (COVID-19) RNA GASTON+probe Ql (Unsp spec) Not detected Normal NOT DETECTED [facility] Comment on above: Result Comment: When [...] for this test is supported by the Parts Clerk of Health and Human Service's declaration that [...] used). Performed By: #### C VDTBH #### [facility] [address] [place] [address] Dr. Jaaj Meadows PROF 14(COMP METB)on 022 Albumin [Mass/Vol] 3.2 g/dL Critically low 3.4-5.0 [facility] Comment on above: Performed By: #### C MP, HSTROPN #### [facility] [address] [place] [address] Dr. Jaja Meadows Albumin/Globulin [Mass ratio] 1.0 {ratio} Normal [facility] Comment on above: Performed By: #### C MP, HSTROPN #### [facility] [address] [place] [address] Dr. Jaja Meadows ALP [Catalytic activity/Vol] 60 U/L Normal 46-116 [facility] Comment on above: Performed By: #### C MP, HSTROPN #### [facility] [address] [place] [address] Dr. Jaja Meadows ALT [Catalytic activity/Vol] 20 U/L Normal 14-59 [facility] Comment on above: Performed By: #### C MP, HSTROPN #### [facility] [address] [place] [address] Dr. Jaja Meadows Anion gap [Moles/Vol] 10.3 mmol/L Normal [facility] Comment on above: Performed By: #### C MP, HSTROPN #### [facility] [address] [address] [address] Jaja Meadows AST [Catalytic activity/Vol] 19 U/L Normal 15-37 [facility] Comment on above: Performed By: #### C MP, HSTROPN #### [facility] [address] [address] [address] Jaja Meadows Bilirubin [Mass/Vol] 0.3 mg/dL Normal 0.2-1.0 [facility] Comment on above: Performed By: #### C MP, HSTROPN #### [facility] [address] [place] [address] Dr. Jaja Meadows Calcium [Mass/Vol] 8.9 mg/dL Normal 8.5-10.1 [facility] Comment on above: Performed By: #### C JESSIE, HSTROPN #### [facility] [address] [place] [address] Dr. Jaja Meadows Chloride [Moles/Vol] 107 mmol/L Normal 98-107 [facility] Comment on above: Performed By: #### C JESSIE, HSTROPN #### [facility] [address] [place] [address] Dr. Jaja Meadows CO2 [Moles/Vol] 29.3 mmol/L Normal 21.0-32.0 [facility] Comment on above: Performed By: #### C MP, HSTROPN #### [facility] [address] [place] [address] Dr. Jaja Meadows Creatinine [Mass/Vol] 0.99 mg/dL Normal 0.55-1.02 [facility] Comment on above: Performed By: #### C MP, HSTROPN #### [facility] [address] [place] [address] Dr. Jaja Meadows EGFR-AF BELGIAN >60 Normal >=60 [facility] Comment on above: Performed By: #### C MP, HSTROPN #### [facility] [address] [place] [address] Dr. Jaja Meadows EGFR-NON AF BELGIAN 53 mL/min/1.73m2 Critically low >=60 [facility] Comment on above: Performed By: #### C MP, HSTROPN #### [facility] [address] [address] [address] Jaja Meadows Globulin (S) [Mass/Vol] 3.1 g/dL Normal [facility] Comment on above: Performed By: #### C MP, HSTROPN #### [facility] [address] [address] [address] Jaja Meadows Glucose [Mass/Vol] 117 mg/dL Critically high 74-106 T [facility] Comment on above: Performed By: #### C MP, HSTROPN #### [facility] [address] [place] [address] Dr. Jaja Meadows Potassium [Moles/Vol] 3.6 mmol/L Normal 3.5-5.1 [facility] Comment on above: Performed By: #### C MP, HSTROPN #### [facility] [address] [address] [address] Jjaa Meadows Protein [Mass/Vol] 6.3 g/dL Critically low 6.4-8.2 [facility] Comment on above: Performed By: #### C MP, HSTROPN #### [facility] [address] [address] [address] Jaja Meadows Sodium [Moles/Vol] 143 mmol/L Normal 136-145 [facility] Comment on above: Performed By: #### C MP, HSTROPN #### [facility] [address] [address] [address] Jaja Meadows Urea nitrogen [Mass/Vol] 26.0 mg/dL Critically high 7.0-18.0 [facility] Comment on above: Performed By: #### C MP, HSTROPN #### [facility] [address] [address] [address] Jaja Meadows Urea nitrogen/Creatinine [Mass ratio] 26.3 mg/mg Normal [facility] Comment on above: Performed By: #### C MP, HSTROPN #### [facility] [address] [place] [address] Dr. Jaja Meadows PROTIMEon 05-07-2022 INR Coag (PPP) [Relative time] 0.98 {INR} Normal [facility] Comment on above: Performed By: #### P TT, PT #### [facility] [address] [place] [address] Dr. Jaja Meadows INR GUIDELINES SEE BELOW Normal [facility] Comment on above: Result Comment: SEE RED INR: 2.0 - 3.0 CONDITIONS NOT LISTED BELOW 2.5 - 3.5 FOR PROSTHETIC HEART VALVE REPLACEMENT 2.5 - 3.5 RECURRENT THROMBOSIS Performed By: #### P TT, PT #### [facility] [address] [place] [address] Dr. Jaja Meadows PT Coag (PPP) [Time] 10.6 s Normal 9.0-11.6 [facility] Comment on above: Performed By: #### P TT, PT #### [facility] [address] [place] [address] Dr. Jaja Meadows PTTon 05-07-2022 aPTT Coag (Bld) [Time] 28.3 s Normal 22.3-36.2 [facility] Comment on above: Performed By: #### P TT, PT #### [facility] [address] [place] [address] Dr. Jaja Meadows TROPONIN, HIGH SENSITIVITYon 05-07-2022 HSTROP 2777.5 pg/mL Critically high 4.0-51.3 [facility] Comment on above: Result Comment: CUT- OFF POINTS HAVE BEEN ESTABLISHED BASED ON THE FOURTH UNIVERSAL DEFINITIONS OF MYOCARDIAL INFARCTION. THE UPPER REFERENCE LIMIT (URL) OF TROPONIN, DEFINED THE 99TH PERCENTILE OF cTnI DISTRIBUTION IN A REFERENCE POPULATION, HAS BEEN CONFIRMED THE DECISION THRESHOLD FOR MN DIAGNOSIS. Performed By: #### H STROPN #### [facility] [address] [place] [address] Dr. Jaja Meadows HSTROP 875.9 pg/mL Critically high 4.0-51.3 [facility] Comment on above: Result Comment: CUT- OFF POINTS HAVE BEEN ESTABLISHED BASED ON THE FOURTH UNIVERSAL DEFINITIONS OF MYOCARDIAL INFARCTION. THE UPPER REFERENCE LIMIT (URL) OF TROPONIN, DEFINED THE 99TH PERCENTILE OF cTnI DISTRIBUTION IN A REFERENCE POPULATION, HAS BEEN CONFIRMED THE DECISION THRESHOLD FOR MN DIAGNOSIS. Performed By: #### C MP, HSTROPN #### [facility] [address] [place] [address] Dr. Jaja Meadows XR CHEST 1 Von [...] ANUPAMA CASAREZ Date: 2022-05-07 06:42 Normal [facility] CULTURE URINEon 05-01-2022 CULTURE URINE Isolate [...] Trimethoprim/Sulfamethoxa zole <=20 S F Normal [facility] Comment on above: Performed By: #### P TT, PT #### [facility] [address] [place] [address] Dr. Jaja Meadows UA RANDOM W/MICROSCOPICon BACTERIA LARGE Abnormal NONE SEEN [facility] Comment on above: Performed By: #### C VDTBH #### [facility] [address] [place] [address] Dr. Jaja Meadows Bilirubin Ql (U) Negative Normal NEGATIVE [facility] Comment on above: Performed By: #### C VDTBH #### [facility] [address] [place] [address] Dr. Jaja Meadows CAST NONE SEEN Normal NONE SEEN [facility] Comment on above: Performed By: #### C VDTBH #### [facility] [address] [place] [address] Dr. Jaja Meadows Clarity (U) CLEAR Normal CLEAR [facility] Comment on above: Performed By: #### C VDTBH #### [facility] [address] [place] [address] Dr. Jaja Meadows Color (U) LT. YELLOW Normal YELLOW [facility] Comment on above: Performed By: #### C VDTBH #### [facility] [address] [place] [address] Dr. Jaja Meadows Crystals LM Nom (Urine sed) NONE SEEN Normal NONE SEEN [facility] Comment on above: Performed By: #### C VDTBH #### [facility] [address] [place] [address] Dr. Jaja Meadows Epithelial cells LM Ql (Urine sed) NONE SEEN Normal NONE SEEN /RARE [facility] Comment on above: Performed By: #### C VDTBH #### [facility] [address] [place] [address] Dr. Jaja Meadows Glucose Ql (U) Negative Normal NEGATIVE [facility] Comment on above: Performed By: #### C VDTBH #### [facility] [address] [place] [address] Dr. Jaja Meadows Hemoglobin Ql (U) TRACE-INTACT Abnormal NEGATIVE [facility] Comment on above: Performed By: #### C VDTBH #### [facility] [address] [place] [address] Dr. Jaja Meadows Ketones Ql (U) Negative Normal NEGATIVE [facility] Comment on above: Performed By: #### C VDTBH #### [facility] [address] [place] [address] Dr. Jaja Meadows LEUKOCYTES MODERATE Abnormal NEGATIVE [facility] Comment on above: Performed By: #### C VDTBH #### [facility] [address] [place] [address] Dr. Jaja Meadows MUCOUS NONE SEEN Normal NONE SEEN [facility] Comment on above: Performed By: #### C VDTBH #### [facility] [address] [place] [address] Dr. Jaja Meadows Nitrite Ql (U) Positive Abnormal NEGATIVE [facility] Comment on above: Performed By: #### C VDTBH #### [facility] [address] [place] [address] Dr. Jaja Meadows pH (U) 7.0 [pH] Normal 5-9 [facility] Comment on above: Performed By: #### C VDTBH #### [facility] [address] [place] [address] Dr. Jaja Meadows RBC 0-2 Normal 0-2 [facility] Comment on above: Performed By: #### C VDTBH #### [facility] [address] [place] [address] Dr. Jaja Meadows SPEC GRAVITY 1.010 Normal 1.005-<=1. 025 [facility] Comment on above: Performed By: #### C VDTBH #### [facility] [address] [place] [address] Dr. Jaja Meadows UA PROTEIN Negative Normal NEGATIVE/ TRACE [facility] Comment on above: Performed By: #### C VDTBH #### [facility] [address] [place] [address] Dr. Jaja Meadows Urobilinogen Qn (U) 0.2 {Son'U}/dL Normal 0.2 - 1. 0 [facility] Comment on above: Performed By: #### C VDTBH #### [facility] [address] [place] [address] Dr. Jaja Meadows WBC 20-50 Abnormal NONE SEEN [facility] Comment on above: Performed By: #### C VDTBH #### [facility] [address] [place] [address] Dr. Jaja Meadows CBC AUTO DIFFon 04-14-2022 BASO # 0.0 103/ul Normal 0.0-0.1 [facility] Comment on above: Performed By: #### B MP #### [facility] [address] [address] [address] Jaja Meadows Basophils/100 WBC (Bld) 0.6 % Normal 0.2-2.0 [facility] Comment on above: Performed By: #### B MP #### [facility] [address] [address] [address] Jaja Meadows EO # 0.1 103/ul Normal 0.0-0.7 [facility] Comment on above: Performed By: #### B MP #### [facility] [address] [place] [address] Dr. Jaja Meadows Eosinophils/100 WBC (Bld) 2.2 % Normal 0.9-7.0 [facility] Comment on above: Performed By: #### B MP #### [facility] [address] [place] [address] Dr. Jaja Meadows Erythrocyte distribution width (RBC) [Ratio] 14.5 % Normal 11.0-15.0 [facility] Comment on above: Performed By: #### B MP #### [facility] [address] [place] [address] Dr. Jaja Meadows Hematocrit (Bld) [Volume fraction] 40.4 % Normal 36.0-48.0 [facility] Comment on above: Performed By: #### B MP #### [facility] [address] [place] [address] Dr. Jaja Meadows Hemoglobin (Bld) [Mass/Vol] 13.0 g/dL Normal 12.0-16.0 [facility] Comment on above: Performed By: #### B MP #### [facility] [address] [place] [address] Dr. Jaja Meadows IG # 0.05 10e3/ul Critically high 0.00-0.03 [facility] Comment on above: Performed By: #### B MP #### [facility] [address] [place] [address] Dr. Jaja Meadows IG % 0.8 % Critically high 0.0-0.5 [facility] Comment on above: Performed By: #### B MP #### [facility] [address] [place] [address] Dr. Jaja Meadows LYMPH # 2.1 103/ul Normal 1.2-3.8 [facility] Comment on above: Performed By: #### B MP #### [facility] [address] [place] [address] Dr. Jaja Meadows Lymphocytes/100 WBC (Bld) 33.0 % Normal 20.5-60.0 [facility] Comment on above: Performed By: #### B MP #### [facility] [address] [place] [address] Dr. Jaja Meadows MANUAL DIFF REQ NO Normal [facility] Comment on above: Performed By: #### B MP #### [facility] [address] [place] [address] Dr. Jaja Meadows MCH (RBC) [Entitic mass] 30.7 pg Normal 26.7-34.0 [facility] Comment on above: Performed By: #### B MP #### [facility] [address] [place] [address] Dr. Jaja Meadows MCHC (RBC) [Mass/Vol] 32.2 g/dL Normal 29.9-35.2 [facility] Comment on above: Performed By: #### B MP #### [facility] [address] [place] [address] Dr. Jaja Meadows MCV (RBC) [Entitic vol] 95.5 fL Normal 81.0-99.0 [facility] Comment on above: Performed By: #### B MP #### [facility] [address] [place] [address] Dr. Jaja Meadows MONO # 0.6 103/ul Normal 0.3-0.8 [facility] Comment on above: Performed By: #### B MP #### [facility] [address] [place] [address] Dr. Jaja Meadows Monocytes/100 WBC (Bld) 9.6 % Normal 1.7-12.0 [facility] Comment on above: Performed By: #### B MP #### [facility] [address] [place] [address] Dr. Jaja Meadows NEUT # 3.4 103/ul Normal 1.4-6.5 [facility] Comment on above: Performed By: #### B MP #### [facility] [address] [place] [address] Dr. Jaja Meadows Neutrophils/100 WBC (Bld) 53.8 % Normal 43.0-75.0 [facility] Comment on above: Performed By: #### B MP #### [facility] [address] [place] [address] Dr. Jaja Meadows Platelet mean volume (Bld) [Entitic vol] 9.5 fL Normal 9.5-13.5 [facility] Comment on above: Performed By: #### B MP #### [facility] [address] [place] [address] Dr. Jaja Meadows PLT 233 103/ul Normal 150-450 [facility] Comment on above: Performed By: #### B MP #### [facility] [address] [place] [address] Dr. Jaja Meadows RBC 4.23 106/ul Normal 4.20-5.40 [facility] Comment on above: Performed By: #### B MP #### [facility] [address] [place] [address] Dr. Jaja Meadows WBC 6.3 103/ul Normal 4.0-11.0 [facility] Comment on above: Performed By: #### B MP #### [facility] [address] [place] [address] Dr. Jaja Meadows CRPon 04-14-2022 CRP [Mass/Vol] mg/L Normal <=1.0 [facility] Comment on above: Performed By: #### C VDTBH #### [facility] [address] [place] [address] Dr. Jaja Meadows PROF 14(COMP METB)on 022 Albumin [Mass/Vol] 3.5 g/dL Normal 3.4-5.0 [facility] Comment on above: Performed By: #### C VDTBH #### [facility] [address] [place] [address] Dr. Jaja Meadows Albumin/Globulin [Mass ratio] 1.1 {ratio} Normal [facility] Comment on above: Performed By: #### C VDTBH #### [facility] [address] [place] [address] Dr. Jaja Meadows ALP [Catalytic activity/Vol] 65 U/L Normal 46-116 [facility] Comment on above: Performed By: #### C VDTBH #### [facility] [address] [place] [address] Dr. Jaja Meadows ALT [Catalytic activity/Vol] 22 U/L Normal 14-59 [facility] Comment on above: Performed By: #### C VDTBH #### [facility] [address] [place] [address] Dr. Jaja Meadows Anion gap [Moles/Vol] 9.0 mmol/L Normal [facility] Comment on above: Performed By: #### C VDTBH #### [facility] [address] [place] [address] Dr. Jaja Meadows AST [Catalytic activity/Vol] 18 U/L Normal 15-37 [facility] Comment on above: Performed By: #### C VDTBH #### [facility] [address] [place] [address] Dr. Jaja Meadows Bilirubin [Mass/Vol] 0.5 mg/dL Normal 0.2-1.0 [facility] Comment on above: Performed By: #### C VDTBH #### [facility] [address] [place] [address] Dr. Jaja Meadows Calcium [Mass/Vol] 8.7 mg/dL Normal 8.5-10.1 [facility] Comment on above: Performed By: #### C VDTBH #### [facility] [address] [place] [address] Dr. Jaja Meadows Chloride [Moles/Vol] 105 mmol/L Normal 98-107 [facility] Comment on above: Performed By: #### C VDTBH #### [facility] [address] [address] [address] Jaja Meadows CO2 [Moles/Vol] 30.8 mmol/L Normal 21.0-32.0 [facility] Comment on above: Performed By: #### C VDTBH #### [facility] [address] [address] [address] Jaja Meadows Creatinine [Mass/Vol] 1.05 mg/dL Critically high 0.55-1.02 [facility] Comment on above: Performed By: #### C VDTBH #### [facility] [address] [place] [address] Dr. Jaja Meadows EGFR-AF BELGIAN >60 Normal >=60 [facility] Comment on above: Performed By: #### C VDTBH #### [facility] [address] [address] [address] Jaja Meadows EGFR-NON AF BELGIAN 50 mL/min/1.73m2 Critically low >=60 [facility] Comment on above: Performed By: #### C VDTBH #### [facility] [address] [place] [address] Dr. Jaja Meadows Globulin (S) [Mass/Vol] 3.1 g/dL Normal [facility] Comment on above: Performed By: #### C VDTBH #### [facility] [address] [address] [address] Jaja Meadows Glucose [Mass/Vol] 76 mg/dL Normal 74-106 [facility] Comment on above: Performed By: #### C VDTBH #### [facility] [address] [address] [address] Jaja Meadows Potassium [Moles/Vol] 3.8 mmol/L Normal 3.5-5.1 [facility] Comment on above: Performed By: #### C VDTBH #### [facility] [address] [address] [address] Jaja Meadows Protein [Mass/Vol] 6.6 g/dL Normal 6.4-8.2 [facility] Comment on above: Performed By: #### C VDTBH #### [facility] [address] [place] [address] Dr. Jaja Meadows Sodium [Moles/Vol] 141 mmol/L Normal 136-145 [facility] Comment on above: Performed By: #### C VDTBH #### [facility] [address] [place] [address] Dr. Jaja Meadows Urea nitrogen [Mass/Vol] 25.0 mg/dL Critically high 7.0-18.0 [facility] Comment on above: Performed By: #### C VDTBH #### [facility] [address] [place] [address] Dr. Jaja Meadows Urea nitrogen/Creatinine [Mass ratio] 23.8 mg/mg Normal [facility] Comment on above: Performed By: #### C VDTBH #### [facility] [address] [place] [address] Dr. Jaja Meadows SED RATE [facility] 2021 SED RATE 5 mm/hr Normal <=30 [facility] Comment on above: Performed By: #### P TT, PT #### [facility] [address] [place] [address] Dr. Jaja Meadows Patient Educationon 12-08-19 Patient [...] Follow these instructions at home: ? Take lfub-fxq-bsryach and prescription medicines only as told by [...] 11/05/2016 Document Revised: 05/23/2019 Document Reviewed: 05/23/2019 [employer] Patient Education ? 2019 [employer] [facility] U[facility] Phone Visit- Telehealth Chief Complaint 6 month follow up. Phone Visit [facility] Staff Milind is a 86 year old [...] baths & hot tubs, avoid any scented [employer] products, urinate after sexual activity, etc) Ordered: Telephone Est 11 to 20 minutes [id number] 2. Urethral stricture (N35.919: Unspecified urethral stricture, male, unspecified site) good steady stream. no complaints. offered f/u but pt prefers PRN Ordered: Telephone Est 11 to 20 minutes [id number] This visit was conducted via phone communications from my office due to the restrictions of the COVID-19 pandemic. No physical exam was conducted due to audio only communication with the patient located at [address] [place] [phone], with no one else. If it is [...] SARS-CoV-2 (COVID-19) Ad26 vaccine 01/02/2021 Recorded Normal [facility] Comment on above: Result Comment: Elec tronically Signed By: HALINA KENDRICK PA-C\.br\Date and Time Signed: 12/08/21 10:54 EST Vital Signs Date Time Vital Sign Value Performing Clinician Facility 04-19-2024 13:21-0400 Body height 157.48 cm MD Aravind [facility] Jr Work Phone: [facility] 04-19-2024 13:21-0400 Body mass index (BMI) [Ratio] 23 kg/m2 MD Aravind [facility] Jr Work Phone: [facility] 04-19-2024 13:21-0400 Body weight 57.15 kg MD Aravind [facility] Jr Work Phone: [facility] 04-19-2024 13:21-0400 Diastolic blood pressure 77 mm[Hg] MD Aravind [facility] Jr Work Phone: [facility] 04-19-2024 13:21-0400 Heart rate 79 /min MD Aravind [facility] Jr Work Phone: [facility] 04-19-2024 13:21-0400 Systolic blood pressure 113 mm[Hg] MD Aravind [facility] Jr Work Phone: [facility] 03-21-2024 10:53-0400 Body height 154.9 cm Esteban Pineda PROFESSOR OF ECONOMICS-STUDENT ASSISTANT Work Phone: [facility] 03-21-2024 10:53-0400 Body mass index (BMI) [Ratio] 23.88 kg/m2 Esteban Pineda PROFESSOR OF ECONOMICS-STUDENT ASSISTANT Work Phone: [facility] 03-21-2024 10:53-0400 Body weight 57.34 kg Esteban Pineda PROFESSOR OF ECONOMICS-STUDENT ASSISTANT Work Phone: [facility] 03-21-2024 10:53-0400 Diastolic blood pressure 70 mm[Hg] Esteban Pineda PROFESSOR OF ECONOMICS-STUDENT ASSISTANT Work Phone: [facility] 03-21-2024 10:53-0400 Heart rate 68 /min Esteban Pineda PROFESSOR OF ECONOMICS-STUDENT ASSISTANT Work Phone: [facility] 03-21-2024 10:53-0400 Systolic blood pressure 110 mm[Hg] Esteban Pineda PROFESSOR OF ECONOMICS-STUDENT ASSISTANT Work Phone: [facility] 03-14-2024 14:13-0400 Body temperature 97.7 [degF] MD Aravind [facility] Jr Work Phone: [facility] 03-14-2024 14:13-0400 Diastolic blood pressure 75 mm[Hg] MD Aravind [facility] Jr Work Phone: [facility] 03-14-2024 14:13-0400 Heart rate 79 /min MD Aravind [facility] Jr Work Phone: [facility] 03-14-2024 14:13-0400 Respiratory rate 24 /min MD Aravind [facility] Jr Work Phone: [facility] 03-14-2024 14:13-0400 SaO2% (BldA) [Mass fraction] 94 % MD Aravind [facility] Jr Work Phone: [facility] 03-14-2024 14:13-0400 Systolic blood pressure 118 mm[Hg] MD Aravind [facility] Jr Work Phone: [facility] 03-14-2024 06:00-0400 Body weight 57.9 kg MD Aravind [facility] Jr Work Phone: [facility] 03-12-2024 14:40-0400 Body height 154.94 cm MD Aravind [facility] Jr Work Phone: [facility] 03-12-2024 03:00-0400 Inhaled oxygen flow rate 1 L/min MD Aravind [facility] Jr Work Phone: [facility] 03-09-2024 23:00-0400 Body temperature 96.5 [degF] MD Aravind [facility] Jr Work Phone: [facility] 03-09-2024 23:00-0400 Diastolic blood pressure 78 mm[Hg] MD Aravind [facility] Jr Work Phone: [facility] 03-09-2024 23:00-0400 Heart rate 77 /min MD Aravind [facility] Jr Work Phone: [facility] 03-09-2024 23:00-0400 Inhaled oxygen flow rate 3 L/min MD Aravind [facility] Jr Work Phone: [facility] 03-09-2024 23:00-0400 Respiratory rate 16 /min MD Aravind [facility] Jr Work Phone: [facility] 03-09-2024 23:00-0400 SaO2% (BldA) [Mass fraction] 94 % MD Aravind [facility] Jr Work Phone: [facility] 03-09-2024 23:00-0400 Systolic blood pressure 127 mm[Hg] MD Aravind [facility] Jr Work Phone: [facility] 03-09-2024 22:37-0400 Body height 154.94 cm MD Aravind [facility] Jr Work Phone: [facility] 03-09-2024 22:37-0400 Body weight 56.9 kg MD Aravind [facility] Jr Work Phone: [facility] 02-09-2024 13:33-0400 Body height 154.94 cm [facility] 02-09-2024 13:33-0400 Body mass index (BMI) [Ratio] 24.5 kg/m2 [facility] 02-09-2024 13:33-0400 Body weight 59.02 kg [facility] 02-09-2024 13:33-0400 Diastolic blood pressure 68 mm[Hg] [facility] 02-09-2024 13:33-0400 Heart rate 85 /min [facility] 02-09-2024 13:33-0400 SaO2% (BldA) [Mass fraction] 93 % [facility] 02-09-2024 13:33-0400 Systolic blood pressure 120 mm[Hg] [facility] 11-22-2023 13:15-0500 Body height 154.94 cm Sara Blake Other [facility] 11-22-2023 13:15-0500 Body mass index (BMI) [Ratio] 24.86 kg/m2 Sara Blake Other [facility] Other 11-22-2023 13:15-0500 Body weight 59.69 kg Sara Blake Other [facility] 11-22-2023 13:15-0500 Diastolic blood pressure 72 mm[Hg] Sraa Blake Other [facility] 11-22-2023 13:15-0500 Systolic blood pressure 106 mm[Hg] Sara Blake Other [facility] 10-27-2023 13:30-0500 Body height 154.94 cm Sara Blake Other [facility] Other 10-27-2023 13:30-0500 Body mass index (BMI) [Ratio] 24.83 kg/m2 Sara Blake Other [facility] Other 10-27-2023 13:30-0500 Body weight 59.6 kg Sara Blake Other [facility] Other 10-27-2023 13:30-0500 Diastolic blood pressure 77 mm[Hg] Sara Blake Other [facility] Other 10-27-2023 13:30-0500 Systolic blood pressure 112 mm[Hg] Sara Blake Other [facility] Other 08-11-2023 13:30-0400 Body height 154.94 cm Sara Blake Other [facility] Other 08-11-2023 13:30-0400 Body mass index (BMI) [Ratio] 25.85 kg/m2 Sara Blake Other [facility] Other 08-11-2023 13:30-0400 Body weight 62.05 kg Sara Blake Other [facility] Other 08-11-2023 13:30-0400 Diastolic blood pressure 84 mm[Hg] Sara Blake Other [facility] Other 08-11-2023 13:30-0400 Systolic blood pressure 148 mm[Hg] Sara Blake Other [facility] Other 07-05-2023 12:52-0400 Body height 154.9 cm Kahlil Wakefield PA-C Work Phone: [employer] 07-05-2023 12:52-0400 Body mass index (BMI) [Ratio] 26.45 kg/m2 Kahlil Wakefield PA-C Work Phone: [employer] 07-05-2023 12:52-0400 Body temperature 98.2 [degF] Kahlil Wakefield PA-C Work Phone: [facility] 07-05-2023 12:52-0400 Body weight 63.5 kg Kahlil Wakefield PA-C Work Phone: [facility] 12-28-2022 15:12-0500 Body height 154.94 cm Sara Blake Work Phone: [facility] [address] DO Work Phone: 12-28-2022 15:12-0500 Body mass index (BMI) [Ratio] 24.56 kg/m2 Sara Blake Work Phone: [facility] [address] DO Work Phone: 12-28-2022 15:12-0500 Body surface area Derived from formula 1.57 m2 Sara Blake Work Phone: [facility] [address] DO Work Phone: 12-28-2022 15:12-0500 Body weight 58.97 kg Sara Blake Work Phone: [facility] [address] DO Work Phone: 12-28-2022 15:12-0500 Diastolic blood pressure 62 mm[Hg] Sara Blake Work Phone: [facility] DO Work Phone: 12-28-2022 15:12-0500 Heart rate 58 /min Sara Blake Work Phone: [facility] DO Work Phone: 12-28-2022 15:12-0500 Systolic blood pressure 110 mm[Hg] Sara Blake Work Phone: [facility] [address] DO Work Phone: 11-15-2022 14:30-0500 Body height 154.94 cm Sara Blake Other [facility] Other 11-15-2022 14:30-0500 Body mass index (BMI) [Ratio] 24.18 kg/m2 Sara Blake Other [facility] Other 11-15-2022 14:30-0500 Body weight 58.06 kg Sara Blake Other [facility] Other 11-15-2022 14:30-0500 Diastolic blood pressure 70 mm[Hg] Sara Blake Other [facility] Other 11-15-2022 14:30-0500 Systolic blood pressure 124 mm[Hg] Sara Blake Other [facility] Other 06-07-2022 10:45-0400 65 1 Sara Blake Work Phone: [facility] DO Work Phone: Comment on above: [id number] 05-19-2022 12:17-0400 Body height 154.94 cm Sara Blake Work Phone: [facility] Work Phone: 05-19-2022 12:17-0400 Body mass index (BMI) [Ratio] 23.24 kg/m2 Sara Blake Work Phone: [facility] DO Work Phone: 05-19-2022 12:17-0400 Body surface area Derived from formula 1.54 m2 Sara Blake Work Phone: [facility] DO Work Phone: 05-19-2022 12:17-0400 Body weight 55.79 kg Sara Blake Work Phone: [facility] DO Work Phone: 05-19-2022 12:17-0400 Diastolic blood pressure 69 mm[Hg] Sara E Hayden Work Phone: [facility] DO Work Phone: 05-19-2022 12:17-0400 Heart rate 51 /min Sara Blake Work Phone: [facility] DO Work Phone: 05-19-2022 12:17-0400 Systolic blood pressure 121 mm[Hg] Sara E Hayden Work Phone: [facility] DO Work Phone: Encounters Encounter Date Encounter Type Care Provider Facility Start: 04-19-2024 End: 04-19-2024 Patient encounter procedure MD Aravind Jackson Jr Work Phone: [facility] Work Phone: Start: 04-19-2024 End: 04-19-2024 ambulatory MD Aravind [facility] Jr Work Phone: [facility] Work Phone: Start: 03-21-2024 End: 03-21-2024 ambulatory [facility] Start: 03-21-2024 End: 03-21-2024 Office outpatient visit 15 minutes [facility] PROFESSOR OF ECONOMICS-STUDENT ASSISTANT Work Phone: [facility] Comment on above: Takotsubo syndrome ( Primary Dx); BMI 23.0-23.9, adult Start: 03-16-2024 Non-patient / Non-visit MD Jennifer Heath Work Phone: [facility] Work Phone: Start: 03-10-2024 End: 03-14-2024 Non-patient / Non-visit MD Aravind Jackson Jr Work Phone: [facility] Cardiology Work Phone: Start: 03-10-2024 End: 03-14-2024 Non-patient / Non-visit MD Aravind Jackson Jr Work Phone: [facility] Physician [facility] Pulmonary Disease Work Phone: Start: 03-09-2024 End: 03-14-2024 Evaluation and management of inpatient MD Aravind Jackson Jr Work Phone: [facility] Work Phone: Start: 02-09-2024 End: 02-09-2024 ambulatory [facility] Work Phone: Start: 02-09-2024 End: 02-09-2024 Patient encounter procedure [facility] Work Phone: Start: 12-16-2023 Non-patient / Non-visit [facility] Physician [facility] Work Phone: Start: 12-14-2023 Non-patient / Non-visit [facility] Physician [facility] Work Phone: Start: 12-14-2023 Non-patient / Non-visit [facility] Work Phone: Start: 11-22-2023 End: 11-22-2023 ambulatory Sara Blake Other [facility] Other Start: 11-22-2023 Office outpatient vi sit 15 minutes Sara [facility] Start: 11-22-2023 Telephone encounter [facility] Start: 11-22-2023 End: 11-22-2023 Patient encounter procedure [facility]- Start: 11-14-2023 End: 11-14-2023 ambulatory Sara Blake Other [facility] Other Start: 11-14-2023 Telephone encounter [facility] Start: 11-08-2023 End: 11-08-2023 ambulatory Sara Blake Other [facility] Other Start: 11-08-2023 Telephone encounter [facility] Start: 10-27-2023 End: 10-27-2023 ambulatory Sara Blake Other [facility] Other Start: 10-27-2023 Office outpatient vi sit 15 minutes Sara [facility] Start: 08-15-2023 End: 08-15-2023 ambulatory Sara Blake Other [facility] Other Start: 08-15-2023 Telephone encounter Sara [facility] Start: 08-11-2023 End: 08-11-2023 Departed Referred MD Sara Blake Work Phone: [facility] [place] Work Phone: Start: 08-11-2023 End: 08-11-2023 ambulatory Sara Blake [facility] Work Phone: Start: 08-11-2023 Office outpatient vi sit 25 minutes Sara [facility] Start: 07-05-2023 ambulatory SARA BLAKE [facility] Start: 07-05-2023 End: 07-05-2023 Office outpatient new 30 minutes Kahlil Wakefield PA-C Work Phone: [facility] Comment on above: De Quervain's diseas e (tenosynovitis) (Primary Dx); Arthritis of carpometacarpal (CMC) joint of left thumb; Arthritis of wrist, left Start: 05-17-2023 ambulatory SARA HAYDEN [facility] Start: 04-29-2023 End: 04-29-2023 ambulatory Sara Blake Other [facility] Other Start: 04-29-2023 Telephone encounter [facility] Start: 04-07-2023 ambulatory SARA BLAKE [facility] Start: 02-09-2023 End: 02-09-2023 ambulatory Sara Blake Other [facility] Other Start: 02-09-2023 Telephone encounter [facility] Start: 01-28-2023 End: 01-29-2023 ambulatory MARIA INES JAZMINE Facility:H1 Start: 01-24-2023 End: 01-24-2023 ambulatory Sara Blake Other [facility] Other Start: 01-24-2023 Telephone encounter [facility] Start: 12-28-2022 Office outpatient vi sit 25 minutes Sara Blake Work Phone: [facility] DO Work Phone: Start: 12-28-2022 ambulatory Ismael Lawson Facilit y: Start: 11-17-2022 Transcribe Orders Sara jiménez MD Work Phone: [facility] Comment on above: Unilateral weakness (Primary Dx) Start: 11-15-2022 End: 11-15-2022 ambulatory Sara Blake Other [facility] Other Start: 11-15-2022 Transitional care thee webster srvc 14 day discharge [facility] Start: 11-08-2022 End: 11-08-2022 ambulatory Sara Blake Other [facility] Other Start: 11-08-2022 Telephone encounter [facility] Start: 11-03-2022 End: 11-03-2022 ambulatory DEON PEÑA [facility] Start: 11-03-2022 Telephone encounter [facility] Start: 11-02-2022 End: 11-02-2022 ambulatory DEON PEÑA [facility] Start: 10-25-2022 End: 10-28-2022 ambulatory SARA BLAKE Facility: Start: 06-15-2022 Chart Update Sara Blake Work Phone: [facility] [address] DO Work Phone: Start: 06-07-2022 Patient encounter procedure Sara Blake Work Phone: [facility] [address] [place] Work Phone: Start: 06-02-2022 End: 06-03-2022 ambulatory SARA BLAKE Facility:[facility]1 Start: 05-21-2022 End: 05-22-2022 ambulatory MARIA INESAGNSE DA SILVAJAZMINE Facility:[facility]1 Start: 05-19-2022 ambulatory Ismael Renny Facilit y:[id number] Start: 05-19-2022 Transitional care thee webster srvc 7 day discharge Sara Blake Work Phone: [facility] [address] DO Work Phone: Start: 05-07-[address] Sara Blake Facility:[id number] Start: 05-07-2022 AUDIT Sara Blake Work Phone: [facility] DO Work Phone: Start: 05-07-2022 Message Sara Blake Work Phone: [facility] DO Work Phone: Start: 05-07-2022 End: 05-07-2022 ambulatory SARA BLAKE Facility:[facility]1 Start: 05-07-2022 ambulatory Ismael Hairstondon Facilit y:[id number] Start: 04-29-2022 End: 04-30-2022 ambulatory SARA BLAKE Facility:[facility]1 Start: 04-14-2022 End: 04-15-[address] KENZIE MARTINEZ Facility:[facility]1 Start: 03-04-2022 ambulatory SARA BLAKE Facility :[facility]1 Start: 02-01-2019 End: 02-02-2019 Patient encounter procedure DEFAULT PHYSICIAN Facility:[facility] Procedures Date Procedure Procedure Detail Performing Clinician [...] procedure 12/25/2024 1:20 PM EST Office Visit [facility] [address] [place] [address] Ismael Lawson DO [address] [facility] [address] [place] [address] [facility] Start: 06-24-2024 Influenza vaccination Influenz a Vaccine (Season Ended) [facility] Start: 03-21-2024 End: 03-21-2026 US Heart Transthoracic Transthoracic Echo Limited Echocardiography Routine Takotsubo syndrome Expected: 03/21/2024 (Approximate), Expires: 03/21/2026 [facility] Service Area Work Phone: Comment on above: Expected: 03/21/2024 (Approximate), Expires: 03/21/2026 Start: 03-14-2024 [facility] Start: 03-13-2024 End: 03-13-2024 [facility] Start: 03-12-2024 [facility] Start: 03-11-2024 [facility] Start: 03-10-2024 End: 03-10-2024 [facility] Start: 03-09-2024 End: 03-09-2024 [facility] Start: 03-09-[address] [facility] Start: 03-09-2024 Hospital admission [facility] Start: 03-09-2024 Referral to cardiac rehabilitation program [facility] Start: 03-09-2024 Fluoroscopy of Left Heart using Low Osmolar Contrast Fluoroscopy of Left Heart using Low Osmolar Contrast [facility] Start: 03-09-2024 Fluoroscopy of Multi ple Coronary Arteries using Low Osmolar Contrast Fluoroscopy of Multiple Coronary Arteries using Low Osmolar Contrast [facility] Start: 03-09-2024 Measurement of Cardi ac Sampling and Pressure, Left Heart, Percutaneous Approach Measurement of Cardiac Sampling and Pressure, Left Heart, Percutaneous Approach [facility] Start: 03-09-2024 [facility] Start: 01-11-2024 FUV, Provider: Ismael Lawson, Status: Pen, Time: 11:20 AM FUV, Provider: Ismael Lawson, Status: Pen, Time: 11:20 AM [facility] [address] DO Work Phone: Start: 09-08-2023 End: 09-08-2023 Patient encounter procedure 09/08/2023 1:10 PM EST Office Visit [facility] [address] [place] [address] Kahlil Wakefield [address]ose [address] [place] [address] [facility] Start: 08-11-2023 Bacteria identified in Urine by Culture [facility] Start: 06-24-2023 COVID-19 Vaccine ( season) COVID-19 Vacc[address] () [facility] Start: 06-24-2023 Influenza vaccination INFLUENZA VACC INE (#1) [facility] Start: 12-01-2022 FUV, Provider: Ismael Lawson, Status: Pen, Time: 10:50 AM FUV, Provider: Ismael Lawson, Status: Pen, Time: 10:50 AM [facility] [address] DO Work Phone: Start: 11-25-2022 End: 11-25-2022 Patient encounter procedure 11/25/2022 Appointment Radiology Deon Peña Jr., MD [address] [place] [address] [facility] Start: 06-24-2022 Influenza vaccination Sequenti al Influenza Vaccine (#1) [facility] Start: 06-07-2022 ECHO, Provider: SAIRA [facility]TRASOUND 01,[id number], Status: Pen, Time: 10:45 AM ECHO, Provider: SAIRA [facility]TR[facility] 01,[id number], Status: Pen, Time: 10:45 AM [facility] [address] DO Work Phone: Start: 05-19-2022 FUVHOSP, Provider: Ismael Lawson, Status: Pen, Time: 11:40 AM FUVHOSP, Provider: Ismael Lawson, Status: Pen, Time: 11:40 AM [facility] [address] DO Work Phone: Start: 11-23-2021 COVID-19 VACCINE (3 - Booster for Joaquim series) COVID-19 VACCINE (3 - Booster for Joaquim series) [facility] Start: 2002 Fall risk assessment Falls Risk Asse ssment [facility] Start: 2002 Pneumococcal vaccination PNEUMOCOCCAL VACCINE SERIES (1 - PCV) [facility] Start: 2002 Pneumococcal Vaccine : Age 65+ (1 - PCV) Pneumococcal Vaccine: Age 65+ (1 - PCV) [facility] Start: 1997 RSV patient s and/or patients aged 60+ years (1 - 1-dose 60+ series) RSV patients and/or patients aged 60+ years (1 - 1-dose 60+ series) [facility] Start: 1987 Administration of herpes zoster vaccine Zoster Vaccines (1 of 2) [facility] Start: 1987 Zoster vaccine hzv l natalya for subcutaneous use ZOSTER (SHINGLES) VACCINE (1 of 2) [facility] Start: 1987 Zoster Vaccines (1 o f 2) Zoster Vaccines (1 of 2) [facility] Start: 1982 Screening for malign ant neoplasm of colon COLORECTAL CANCER SCREENING DISCUSSION [facility] Start: 1977 Screening for malign ant neoplasm of breast MAMMOGRAM SCREENING DISCUSSION [facility] Start: 1959 DTaP/Tdap/Td Vaccine s (1 - Tdap) DTaP/Tdap/Td Vaccines (1 - Tdap) [facility] Start: 1958 Screening for malign ant neoplasm of cervix CERVICAL CANCER SCREENING DISCUSSION [facility] Start: 1956 Third diphtheria, tetanus and acellular pertussis (DTaP) vaccination TDAP (ADULT) [facility] Start: 1955 Diabetes mellitus screening Diabetes Screening [facility] Start: 1949 Depression screening using PHQ-9 (Patient Health Questionnaire 9) score Depression Screening (PHQ-2/9) [facility] Start: 1943 Pneumococcal Vaccine : 65+ Years (1 of 2 - PCV) Pneumococcal Vaccine: 65+ Years (1 of 2 - PCV) [facility] Start: 1940 History and physical examination, annual for health maintenance Wellness Visit [facility] Start: 02-15-1938 COVID-19 Vaccine (#1) COVID-19 Vacci ne (#1) [facility] Start: 1937 Lipid panel Lipid Panel [facility] Start: 1937 Medicare Annual Wellness Visit Medicare Annual Wellness Visit (AWV) [facility] Start: 1937 Screening for osteoporosis [facility] Start: 1937 Tetanus vaccination [facility] Bacteria identified in Urine by Culture [facility] Comprehensive metabo lic 2000 panel - Serum or Plasma [facility] Patient Education Cardiomyopathy (DC) Know your Meds [facility] Work Phone: Patient referral [facility] Work Phone: [facility] Immunizations Immunization Date Immunization Notes Care Provider Fa cilimanuel 10-08-2021 Moderna COVID-19 Vac cine 100 MCG/0.5ML Intramuscular Suspension Sara Blake Work Phone: [facility] DO Work Phone: 09-28-2021 Pfizer-BioNTech COVI D-19 Vacc 30 MCG/0.3ML Intramuscular Suspension Sara Blake Work Phone: [facility] 12-31-2020 Joaquim COVID-19 Vac cine 0.5 ML Intramuscular Suspension Sara Blake Work Phone: [facility] Payers Date Payer Category Payer Medicare [id number] 2017 Medicare [id number] 1959 Medicare [id number] 1959 Self-pay 1937 Unknown [id number] 2.16.8 40.1.068961.3.579.2.647 1937 Unknown [id number] 2.16. 840.1.458665.3.579.2.903 1937 Unknown [id number] 2.16. 840.1.559907.3.579.2.356 1937 Unknown [id number] 2.16. 840.1.916838.3.579.2.356 1937 Unknown [id number] 2.16. 840.1.239877.3.579.2.356 1937 Unknown [id number] 2.16. 840.1.962220.3.579.2.356 1937 Unknown [id number] 2.16.84 0.1.654504.3.579.2.593 1937 Unknown [id number] 2.16.84 0.1.552774.3.579.2.593 1937 Unknown [id number] 2.16.84 0.1.868854.3.579.2.593 1937 Unknown [id number] 2.16.84 0.1.801734.3.579.2.593 1937 Unknown [id number] 2.16.84 0.1.481357.3.579.2.593 1937 Unknown [id number] 2.16.84 0.1.027446.3.579.2.593 1937 Unknown [id number] 2.16.84 0.1.779985.3.579.2.593 1937 Unknown [id number] 2.16.84 0.1.981423.3.579.2.593 1937 Unknown [id number] 2.16.8 40.1.843373.3.579.2.983 1937 Unknown [id number] 2.16.8 40.1.172649.3.579.2.983 1937 Unknown [id number] 2.16.8 40.1.670801.3.579.2.983 1937 Unknown [id number] 2.16.8 40.1.699544.3.579.2.983 1937 Unknown [id number] 2.16.8 40.1.316728.3.579.2.1244 Unknown Unknown [id number] 2.16.8 40.1.695805.3.579.2.531 Unknown [id number] 2.16.8 40.1.875430.3.579.2.531 Unknown [id number] 2.16.8 40.1.534298.3.579.2.531 Social History Date Type Detail Facility Start: 07-05-2023 End: 03-21-2024 Caffeine use [facility] Work Phone: Comment on above: iced coffee occasion ally, a little soda daily; Tobacco smoking status IDIS Tobacco smoking consumption unknown [facility] Start: 1935 Sex Assigned At Not on file [facility] Start: 07-05-2023 End: 03-21-2024 Sex Assigned At [facility] Other Start: 04-07-2023 End: 03-10-2024 Tobacco smoking status NHIS Never smoked tobacco [facility] Start: 04-07-2023 End: 03-21-2024 Tobacco use and exposure Smokeless tobacco non-user [facility] Start: 07-05-2023 End: 03-21-2024 Alcohol intake Lifetime non-drinker (finding) [facility] Start: 1935 Sex Assigned At Female [facility] Start: 03-11-2024 End: 03-21-2024 Exposure to SARS-CoV-2 (event) Not sure [facility] Goals Date Patient Goal Desired Activity /State Functional Status Date Assessment Result Facility 03-14-2024 Functional status Patient at Baseline [facility] Work Phone: 03-09-2024 Functional status Patient Not at Baseline [facility] Work Phone: Mental Status Date Assessment Result Facility 03-14-2024 Cognitive function Cognitive Sta tus Patient at Baseline [facility] Work Phone: 03-09-2024 Cognitive function Cognitive Sta tus Patient at Baseline [facility] Work Phone: Clinical Notes 11-15-2022 [...] and cozaar. March 09, 2024 presented to [facility] Cardiac cath: LVEF 35% with classic apical [...] weeks. Appears euvolemic on exam today. [facility] Work Phone: 03-22-2024 Miscellaneous Notes Associated Problem(s): Takotsubo syndrome April 2022 presented with Takotsubo CM (at time of husbands ) with normalized EF 65% May 2022. Was on coreg and cozaar. March 09, 2024 presented to [facility] Cardiac cath: LVEF 35% with classic apical [...] exam today. documented in this encounter [facility] Work Phone: 03-21-2024 History of Presen t illness Narrative Chief Complaint 'she seems to be getting her strength back' Reason for Visit Patient presents to the office today for outpatient follow-up for hospital follow-up. Last evaluated in clinic by Dr. Lawson December 2022. February 2024: Patient was recently hospitalized at [facility]. The patient was seen in Cardiology consult with subsequent cardiovascular management by [facility]. Hospitalization records have been reviewed. Reason for Cardiology Consultation: Chest pain, EKG changes. Consulting Counter Helper: Dr. Lawson Cardiovascular testing: Cardiac catheterization and [...] and cozaar. March 09, 2024 presented to [facility] Cardiac cath: LVEF 35% with classic apical [...] Dr. Lawson 9 months Esteban Pineda MSN, PROFESSOR OF ECONOMICS-STUDENT ASSISTANT, PMHNP-[facility] Please excuse any errors in grammar or translation related to this dictation. Voice recognition software was utilized to prepare this document. documented in this encounter [facility] Work Phone: 03-21-2024 Instructions SHELLY Nassar [...] 9 months documented in this encounter [facility] Work Phone: 03-14-2024 Progress note Note Date/Time March 14, 2024 8:41a m [facility] [address] [place] [address] Pulmonology Progress Note Signed Patient: Milind Tate MR#: [id number] : 1935 Acct:[id number] Age/Sex: 88 / F Adm Date: 4 Loc: Room: [address] [place] [address] Type: DIS IN Attending Dr: Everett Lawson [...] perspective. Documented By: Kartik Vilchis MD 4 [id number] Signed By: <Electronically signed by MD Kartik Vilchis> 03/14/24 1817 [facility] Work Phone: 1(334) 558-169605-21-2024 Progress note Author Kartik Vilchis [facility] March 13, 2024 1:21pm Note Date/Time March 13, 2024 1:20p m [facility] [address] [place] [address] Pulmonology Progress Note Signed Patient: Milind Tate MR#: [id number] : 1935 Acct:[id number] Age/Sex: 88 / F Adm Date: 4 Loc: Room: [address] [place] [address] Type: ADM IN Attending Dr: Everett Lawson [...] is recurrent Takotsubo'scardiomyopathy. Case was discussed with [facility] in regards to urinary tract infection. I [...] <Electronically signed by MD Kartik Vilchis> 03/13/24 0223 [facility] Work Phone: 1(542) 241-341105-21-2024 Progress note Author Everett Lawson [facility] March 13, 2024 11:47am Note Date/Time March 13, 2024 11:47 am [facility] [address] [place] [address] Cardiology Progress Note Signed Patient: iMlind Tate MR#: [id number] : 1935 Acct:[id number] Age/Sex: 88 / F Adm Date: 4 Loc: Room: 9P9832-3 Type: ADM IN Attending Dr: Everett Lawson [...] <Electronically signed by Everett Lawson DO> 03/13/24 7111 [facility] Work Phone: 1(487) 806-544205-20-2024 Progress note Author Kartik Vilchis [facility] March 12, 2024 11:50am Note Date/Time March 12, 2024 11:50 am [facility] [address] [place] [address] Pulmonology Progress Note Signed Patient: Milind Tate MR#: [id number] : 1935 Acct:[id number] Age/Sex: 88 / F Adm Date: 4 Loc: Room: [address] [place] [address] Type: ADM IN Attending Dr: Everett Lawson DO Copies to: ~ Date of Service: 03/12/2024 Subjective Subjective Narrative: Patient has no complaints of chest pain or dyspnea. She knows she is at [facility] but is unaware of the city nor [...] <Electronically signed by MD Kartik Vilchis> 03/12/24 4037 [facility] Work Phone: 1(552) 224-404605-20-2024 Progress note Author Everett Lawson [facility] March 12, 2024 11:09am Note Date/Time March 12, 2024 11:09 am [facility] [address] [place] [address] Cardiology Progress Note Signed Patient: Milind Tate MR#: [id number] : 1935 Acct:[id number] Age/Sex: 88 / F Adm Date: 4 Loc: Room: [address] [place] [address] Type: ADM IN Attending Dr: Everett Lawson [...] normal. I have spoken to her primary radiologic technology program director this morning, Dr. Lawson, who agrees with the plan above. Monitor today. Ambulate ad porsha. Will get physical therapy to evaluate for discharge recommendations. See subjective above. Discharge when possible per physical therapy/Occupational Therapy or acceptance to rehab Documented By: Everett Lawson DO 03/12/241106 Signed By: <Electronically signed by Everett Lawson, > 03/12/24 110 [facility] Work Phone: 1(935) 250-766005-19-2024 Progress note Author Aj Smith [facility] March 11, 2024 7:55pm Note Date/Time March 11, 2024 9:22a m [facility] [address] [place] [address] Cardiology Progress Note Signed with Addenda Patient: Milind Tate MR#: [id number] : 1935 Acct:[id number] Age/Sex: 88 / F Adm Date: 4 Loc: Room: [address] [place] [address] Type: ADM IN Attending Dr: Everett Lawson [...] Cloudy A Urine pH 5.5 Ur Specific [place] 1.031 H Urine Protein Negative Urine Glucose [...] normal. I have spoken to her primary radiologic technology program director this morning, Dr. Lawson, who agrees with the plan above. Monitor today. Ambulate ad porsha. Will get physical therapy to evaluate for discharge recommendations. See subjective above. Plan to D/c today if feasible. Follow-up with Dr. Lawson as outpatient in 1-2 weeks. Documented By: Aj Smith MD 02/21 Signed By: <Electronically signed by Aj Smith MD> 03/11/2429 [facility] Work Phone: 1(948) 646-254105-19-2024 Progress note Author Pinky Nicole [facility] March 11, 2024 2:35pm Note Date/Time March 11, 2024 2:33p m [facility] [address] [place] [address] Pulmonology Progress Note Signed Patient: Milind Tate MR#: [id number] : 1935 Acct:[id number] Age/Sex: 88 / F Adm Date: 4 Loc: Room: [address] [place] [address] Type: ADM IN Attending Dr: Everett Lawson [...] signed by Pinky Nicole MD> 03/11/24 1435 [facility] Work Phone: 1(186) 607-663005-18-2024 Progress note Author Aj Smith [facility] March 10, 2024 4:02pm Note Date/Time March 10, 2024 3:58p m [facility] [address] [place] [address] Cardiology Progress Note Signed with Addenda Patient: Milind Tate MR#: [id number] : 1935 Acct:[id number] Age/Sex: 88 / F Adm Date: 4 Loc: Room: [address] [place] [address] Type: ADM IN Attending Dr: Everett Lawson [...] % (Auto) 54.7 Lymph % (Auto) 35.7 Montgomery % (Auto) 7.5 Eos % (Auto) 1.2 Baso % (Auto) 0.9 Nucleat RBC Rel Count 0.1 Neut # (Auto) 6.5 Lymph # (Auto) 4.2 Montgomery # (Auto) 0.9 H Eos # (Auto) [...] MPV Neut % (Auto) Lymph % (Auto) Montgomery % (Auto) Eos % (Auto) Baso % (Auto) Nucleat RBC Rel Count Neut # (Auto) Lymph # (Auto) [place] # (Auto) Eos # (Auto) Baso # [...] <Electronically signed by Aj Smith MD> 03/10/24 1552 [facility] Work Phone: 1(465) 102-108405-18-2024 Consult note Author Pinky Nicole [facility] March 10, 2024 12:34pm Note Date/Time March 10, 2024 12:28 pm [facility] [address] [place] [address] Pulmonology Consult Note Signed Patient: Milind Tate MR#: [id number] : 1935 Acct:[id number] Age/Sex: 88 / F Adm Date: 4 Loc: Room: [address] [place] [address] Type: ADM IN Attending Dr: Everett Lawson DO Copies to: MD Sara Ware MD W Scott Sheldon, DO~ HPI Date/Time of Consultation: Date of Service: 03/10/2024 Time of Service: 12:27 Consulting Provider: Pinky Nicole Requesting Provider: Everett Lawson Reason for Consult: Critical care management, ST elevation MN, Takotsubo History of Present Illness History of present illness: This is a 88-year-old female with past medical history significant for hypertension, dyslipidemia, dementia, anxiety and depression, coronary artery disease. She presented to the hospital with chest pain. She was taken to the Technical Designer for ST elevation MN and showed single-vessel 50% LAD stenosis and recurrent Takotsubo cardiomyopathy ejection fraction 35%. Patient was admitted to the intensive care unit after the procedure. She is hemodynamically stable. She is anxious she stated that she was having abdominal pain earlier today not now. She is poor historian Review of Systems Review of Systems Unobtainable due to mental condition [facility] Medical History (Updated 03/10/24 @ 12:32 by Pinky Nicole MD) CAD (coronary artery disease) Cataracts, bilateral Hypertension Anxiety Hyperlipidemia Advancing dementia Depression Problem List clean-up per request of Phys. EHR Cmte Anxiety Problem List clean-up per request of Phys. EHR Cmte Migraine Problem List clean-up per request of Phys. EHR Cmte Hypertension Problem List clean-up per request of Phys. EHR [facility] H/O hysterectomy with oophorectomy S/P [...] (Unknown, Verified 02/09/24 13:40) Nausea, muscle weakness Mgipsym-CBR-NoB Reductase Inhibitor Allergy (Unknown, Verified 02/09/24 13:40) [...] #30 tabs 05/07/22 [Rx Confirmed 03/09/24] omega 5-idx-aof-fish oil 1,000 mg (120 mg-180 mg) capsule [...] <Electronically signed by Pinky Nicole MD> 03/10/24 8647 [facility] Work Phone: 1(971) 115-857105-17-2024 History and physical note Author Everett Lawson [facility] March 09, 2024 9:52pm Note Date/Time March 09, 2024 9:27p m [facility] [address] [place] [address] Cardiology H&P Signed Patient: Milind Tate MR#: [id number] : 1935 Acct:[id number] Age/Sex: 88 / F Adm Date: 4 Loc: CL [facility]: Everett Lawson DO Copies to: MD Everett Grissom DO~ Date of Service: 03/09/2024 Cardiology HPI History of Present Illness Chief complaint: Acute anterolateral STEMI HPI: Ms. Tate is a 88 year old female admitted in transit from [facility] with acute anterolateral STEMI. ECG transmitted from [facility] confirms anterolateral ST elevation injury current, upon [...] time were devoted to the ER staff, Technical Designer staff, nursing staff, patient and family both pre and post procedurallyand reviewing prearrival ECGs and discussion with ER attending. Review of Systems Review of Systems All other systems reviewed & are negative unless noted below or in HPI Constitutional Constitutional: Reports as per HPI Cardiovascular Cardiovascular: Reports as per HPI and Reports chest pain at rest [facility] Medical History (Updated 03/09/24 @ 21:51 by [...] (Unknown, Verified 02/09/24 13:40) Nausea, muscle weakness Lnhunzy-ZSB-EuY Reductase Inhibitor Allergy (Unknown, Verified 02/09/24 13:40) [...] #30 tabs 05/07/22 [Rx Confirmed 03/09/24] omega 1-ggw-pub-fish oil 1,000 mg (120 mg-180 mg) capsule [...] x10E3/uL Lymph # (Auto) 4.2 (1.00-4.8) x10E3/uL Montgomery # (Auto) 0.9 H (0.0-0.8) x10E3/uL Eos # (Auto) 0.1 (0.0-0.45) x10E3/uL Baso # (Auto) 0.1 (0.0-0.2) x10E3/uL Intake and Output 03/09/24 03/09/24 03/09/24 07:59 15:59 23:59 Other: Weight 61 kg Patient Weight 03/09/24 23:59 Weight 61 kg EKG Interpretations EKG EKG results cardiology: sinus rhythm MN, pacemaker, normal Myocardial infarction: anterior MN (acute or recent) A&P - Cardiology (1) [...] <Electronically signed by Everett Lawson DO> 03/09/242151 [facility] Work Phone: 1(907) 732-433905-17-2024 History and physical note Author Everett Lawson [facility] March 09, 2024 9:52pm Note Date/Time March 09, 2024 9:27p [facility] [address] [place] [address] Cardiology H&P Signed Patient: Milind Tate MR#: [id number] : 1935 Acct:[id number] Age/Sex: 88 / F Adm Date: 4 Loc: Room: Type: [facility] Attending Dr: Everett Lawson DO Copies to: MD Everett Grissom DO~ Date of Service: 03/09/2024 Cardiology HPI History of Present Illness Chief complaint: Acute anterolateral STEMI HPI: Ms. Tate is a 88 year old female admitted in transit from [facility] with acute anterolateral STEMI. ECG transmitted from [facility] confirms anterolateral ST elevation injury current, upon [...] time were devoted to the ER staff, Technical Designer staff, nursing staff, patient and family both pre and post procedurallyand reviewing prearrival ECGs and discussion with ER attending. Review of Systems Review of Systems All other systems reviewed & are negative unless noted below or in HPI Constitutional Constitutional: Reports as per HPI Cardiovascular Cardiovascular: Reports as per HPI and Reports chest pain at rest [facility] Medical History (Updated 03/09/24 @ 21:51 by [...] (Unknown, Verified 02/09/24 13:40) Nausea, muscle weakness Hltodub-VFY-TxO Reductase Inhibitor Allergy (Unknown, Verified 02/09/24 13:40) [...] #30 tabs 05/07/22 [Rx Confirmed 03/09/24] omega 1-stg-kuy-fish oil 1,000 mg (120 mg-180 mg) capsule [...] x10E3/uL Lymph # (Auto) 4.2 (1.00-4.8) x10E3/uL [place] # (Auto) 0.9 H (0.0-0.8) x10E3/uL Eos # (Auto) 0.1 (0.0-0.45) x10E3/uL Baso # (Auto) 0.1 (0.0-0.2) x10E3/uL Intake and Output 03/09/24 03/09/24 03/09/24 07:59 15:59 23:59 Other: Weight 61 kg Patient Weight 03/09/24 23:59 Weight 61 kg EKG Interpretations EKG EKG results cardiology: sinus rhythm MN, pacemaker, normal Myocardial infarction: anterior MN (acute or recent) A&P - Cardiology (1) [...] <Electronically signed by Everett Lawson DO> 03/09/242151 [facility] Work Phone: 1(977) 715-529705-17-2024 Procedure [facility]* Encounter Date Diagnosis Assessment Notes Treatment Notes Treatment Clinical Notes Oct, Anxiety (ICD-10 - F41.9) Increased dose of citalopram. Increased frequency of alprazolam and added hydroxyzine. Oct, Advancing dementia (ICD-10 - F03.90) Continue followup w GLORIA Oct, SK (solar keratosis) (ICD-10 - L57.0) gave samples of cereve cream [facility] [employer] Other 01-30-2024 Evaluation note* Encounter Date Diagnosis Assessment Notes Treatment Notes Treatment Clinical Notes Oct, Anxiety (ICD-10 - F41.9) [facility] Other 01-22-2024 Evaluation note* Encounter Date Diagnosis Assessment Notes Treatment Notes Treatment Clinical Notes Oct, Anxiety (ICD-10 - F41.9) Oct, Moderate dementia without behavioral disturbance, psychotic disturbance, mood disturbance, or anxiety, unspecified dementia type (ICD-10 - F03.B0) [facility] Other 01-04-2024 Evaluation note* Encounter Date Diagnosis Assessment Notes Treatment Notes Treatment Clinical Notes Oct, Moderate dementia without behavioral disturbance, psychotic disturbance, mood disturbance, or anxiety, unspecified dementia type (ICD-10 - F03.B0) Discussed options and shared daughter's number w Minna and Extended family. Discussed [place] options exclusively as most family is here. [facility] Other 10-19-2023 Evaluation note* Encounter Date Diagnosis [...] forward results and note to their office. [facility] Other 09-12-2023 History of Present illness Narrative* [...] may call and cancel. [facility]* Encounter Date Diagnosis Assessment Notes Treatment Notes Treatment Clinical Notes Oct, Unilateral weakness (ICD-10 - R53.1) Discussed symptoms and problems at length with patient and daughter. We will add carotid ultrasound to the MRI that is scheduled for November 25 at [facility]. Discussed also initiating a referral to neurology. Daughter is not familiar with 1 in the [place] area at this time. We will find a convenient location in [facility] for further assessment. Discussed that [...] - M35.3) Oct, Coronary artery disease involving [place] coronary artery of [place] heart without angina pectoris (ICD-10 - I25.10) Patient under the care of cardiology. [facility] Other Chief complaint Narrative - Reported* 86-year-old female who returns for transitions of care management visit following recent acute coronary syndrome and diagnosed with stress related cardiomyopathy. She witnessed the of her ; classic presentation from a clinical standpoint, with subsequent chest discomfort, non-ST elevation MN. Subsequent catheterization revealed normal coronary arteries and [...] again in 6 months on same therapy [facility] 250 DO Work Phone: Chief complaint Narrative - Reported* 86-year-old female who returns for transitions of care management visit following recent acute coronary syndrome and diagnosed with stress related cardiomyopathy. She witnessed the of her ; classic presentation from a clinical standpoint, with subsequent chest discomfort, non-ST elevation MN. Subsequent catheterization revealed normal coronary arteries and [...] again in 6 months on same therapy [facility] Work Phone: Consult note Author Pinky Nicole [facility] March 10, 2024 12:34pm Note Date/Time March 10, 2024 12:28 pm [facility] [address] [place] [address] Pulmonology Consult Note Signed Patient: Milind Tate MR#: [id number] : 1935 Acct:[id number] Age/Sex: 88 / F Adm Date: 4 Loc: Room: 2G9664-3 Type: ADM IN Attending Dr: Everett Lawson DO Copies to: MD Sara Ware MD W Scott Sheldon, DO~ HPI Date/Time of Consultation: Date of Service: 03/10/2024 Time of Service: 12:27 Consulting Provider: Pinky Nicole Requesting Provider: Everett Lawson Reason for Consult: Critical care management, ST elevation MN, Takotsubo History of Present Illness History of present illness: This is a 88-year-old female with past medical history significant for hypertension, dyslipidemia, dementia, anxiety and depression, coronary artery disease. She presented to the hospital with chest pain. She was taken to the Technical Designer for ST elevation MN and showed single-vessel 50% LAD stenosis and recurrent Takotsubo cardiomyopathy ejection fraction 35%. Patient was admitted to the intensive care unit after the procedure. She is hemodynamically stable. She is anxious she stated that she was having abdominal pain earlier today not now. She is poor historian Review of Systems Review of Systems Unobtainable due to mental condition [facility] Medical History (Updated 03/10/24 @ 12:32 by [...] (Unknown, Verified 02/09/24 13:40) Nausea, muscle weakness Ebelasn-KWV-BwW Reductase Inhibitor Allergy (Unknown, Verified 02/09/24 13:40) [...] #30 tabs 05/07/22 [Rx Confirmed 03/09/24] omega 0-qtw-szd-fish oil 1,000 mg (120 mg-180 mg) capsule [...] signed by Pinky Nicole MD> 03/10/24 1234 [facility] Work Phone: Discharge summary Author W Renny [facility] March 14, 2024 12:39pm Note Date/Time March 14, 2024 12:39 pm [facility] [address] [place] [address] Discharge Summary Signed Patient: Milind Tate MR#: [id number] : 1935 Acct:[id number] Age/Sex: 88 / F Adm Date: 4 Loc: Room: [address] [place] [address]: Everett Lawson DO Copies to: [...] Regular Additional Instructions: DISCHARGE INSTRUCTIONS FOR CARDIAC CARPENTER HELPER MAINTENANCE PROCEDURE: Heart Cath The following instructions have [...] cold, numb, blue or white, call the radiologic technology program director immediately. 4. ACTIVITY: You are advised to [...] bottle, follow the instructions on the bottle. [facility] is not responsible for incorrect prescription [...] mg PO DAILY PRN (Reason: Headache) omega 6-vii-uzt-fish oil 1,000 mg (120 mg-180 mg) capsule [...] APRN [Nurse Practitioner] - 03/21/24 11:00 am (BOOKKEEPING ASSISTANT for Dr Lawson @ [facility]) Exam Physical Exam Vital Signs: Temp [...] signed by Everett Lawson DO> 03/14/24 1239 [facility] Work Phone: Evaluation note* Diagnosis Unilateral weakness- Primary documented in this encounter [facility] noteNo [employer]ocox [place] [employer] Other Evaluation note* Diagnosis 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 Arthritis of carpometacarpal (CMC) joint of left thumb Arthritis of wrist, left Unspecified arthropathy, forearm [facility] Work Phone: Evaluation note* Diagnosis Onset Date Resolution Status Advancing dementia acute Anxiety acute Bilateral arm pain acute Acute coronary syndrome acut e Advancing dementia acute Takotsubo cardiomyopathy acu [facility] Work Phone: Evaluation note* Diagnosis Onset Date Resolution Status Advancing dementia acute Anxiety acute Bilateral arm pain acute Acute coronary syndrome acut e Advancing dementia acute Anxiety acute Hypertension acute Takotsubo cardiomyopathy acu [facility] Work Phone: Evaluation note* Diagnosis Takotsubo syndrome- Primary BMI 23.0-23.9, adult documented in this encounter [facility] Work Phone: Evaluation note* Diagnosis Onset Date Resolution Status Advancing dementia acute Anxiety acute Bilateral arm pain acute Advancing dementia acute Anxiety acute Hypertension acute ST elevation MN (STEMI) acut e Takotsubo cardiomyopathy acu te Acute coronary syndrome reso lved Depression acute Hair loss acute Hypertension acute Hypomagnesemia acute UTI (urinary tract infection) acute [facility] Work Phone: History general Narrative - Reported* Type Description Date Medical History hypertension Medical History hyperlipidemia Surgical History appendectomy Surgical History cholecystectomy Surgical History hysterectomy Surgical History hernia repair Surgical History urethral dilation and cystoscop y Surgical History cataracts Hospitalization History abdominal pain Luv Rink Other Progress note Author Aj tyler [facility] March 10, 2024 4:02pm Note Date/Time March 10, 2024 3:58p m [facility] [address] [place] [address] Cardiology Progress Note Signed with Addenda Patient: Milind Tate MR#: [id number] : 1935 Acct:[id number] Age/Sex: 88 / F Adm Date: 4 Loc: Room: [address] [place] [address] Type: ADM IN Attending Dr: Everett Lawson [...] % (Auto) 54.7 Lymph % (Auto) 35.7 [place] % (Auto) 7.5 Eos % (Auto) 1.2 Baso % (Auto) 0.9 Nucleat RBC Rel Count 0.1 Neut # (Auto) 6.5 Lymph # (Auto) 4.2 [place] # (Auto) 0.9 H Eos # (Auto) [...] MPV Neut % (Auto) Lymph % (Auto) [place] % (Auto) Eos % (Auto) Baso % (Auto) Nucleat RBC Rel Count Neut # (Auto) Lymph # (Auto) [place] # (Auto) Eos # (Auto) Baso # [...] <Electronically signed by Aj Smith MD> 03/10/24 3837 [facility] Work Phone: Progress note Author Aj tyler [facility] March 11, 2024 7:55pm Note Date/Time March 11, 2024 9:22a m [facility] [address] [place] [address] Cardiology Progress Note Signed with Addenda Patient: Milind Tate MR#: [id number] : 1935 Acct:[id number] Age/Sex: 88 / F Adm Date: 4 Loc: Room: [address] [place] [address] Type: ADM IN Attending Dr: Everett Lawson [...] Cloudy A Urine pH 5.5 Ur Specific [place] 1.031 H Urine Protein Negative Urine Glucose [...] normal. I have spoken to her primary radiologic technology program director this morning, Dr. Lawson, who agrees with the plan above. Monitor today. Ambulate ad porsha. Will get physical therapy to evaluate for discharge recommendations. See subjective above. Plan to D/c today if feasible. Follow-up with Dr. Lawson as outpatient in 1-2 weeks. Documented By: Aj Smith MD 02/21 Signed By: <Electronically signed by Aj Smith MD> 03/11/24 0929 [facility] Work Phone: Progress note Author Pinky Nicole [facility] March 11, 2024 2:35pm Note Date/Time March 11, 2024 2:33p m [facility] [address] [place] [address] Pulmonology Progress Note Signed Patient: Milind Tate MR#: [id number] : 1935 Acct:[id number] Age/Sex: 88 / F Adm Date: 4 Loc: Room: 7N6155-2 Type: ADM IN Attending Dr: Everett Lawson [...] signed by Pinky Nicole MD> 03/11/24 1436 [facility] Work Phone: Progress note Author Everett Lawson [facility] March 12, 2024 11:09am Note Date/Time March 12, 2024 11:09 am [facility] [address] [place] [address] Cardiology Progress Note Signed Patient: Milind Tate MR#: [id number] : 1935 Acct:[id number] Age/Sex: 88 / F Adm Date: 4 Loc: Room: [address] [place] [address] Type: ADM IN Attending Dr: Everett Lawson [...] normal. I have spoken to her primary radiologic technology program director this morning, Dr. Lawson, who agrees with the plan above. Monitor today. Ambulate ad porsha. Will get physical therapy to evaluate for discharge recommendations. See subjective above. Discharge when possible per physical therapy/Occupational Therapy or acceptance to rehab Documented By: Everett Lawson DO 03/12/241106 Signed By: <Electronically signed by Everett Lawson DO> 03/12/24 1109 [facility] Work Phone: Progress note Author Kartik Vilchis [facility] March 12, 2024 11:50am Note Date/Time March 12, 2024 11:50 am [facility] [address] [place] [address] Pulmonology Progress Note Signed Patient: Milind Tate MR#: [id number] : 1935 Acct:[id number] Age/Sex: 88 / F Adm Date: 4 Loc: Room: [address] [place] [address] Type: ADM IN Attending Dr: Everett Lawson DO Copies to: ~ Date of Service: 03/12/2024 Subjective Subjective Narrative: Patient has no complaints of chest pain or dyspnea. She knows she is at [facility] but is unaware of the city nor [...] <Electronically signed by MD Kartik Vilchis> 03/12/24 2329 [facility] Work Phone: Progress note Author W Renny [facility] March 13, 2024 11:47am Note Date/Time March 13, 2024 11:47 am [facility] [address] [place] [address] Cardiology Progress Note Signed Patient: Milind Tate MR#: [id number] : 1935 Acct:[id number] Age/Sex: 88 / F Adm Date: 4 Loc: Room: [address] [place] [address] Type: ADM IN Attending Dr: Everett Lawson [...] signed by Everett Lawson DO> 03/13/24 1147 [facility] Work Phone: Progress note Author Kartik Vilchis [facility] March 13, 2024 1:21pm Note Date/Time March 13, 2024 1:20p m [facility] [address] [place] [address] Pulmonology Progress Note Signed Patient: Milind Tate MR#: [id number] : 1935 Acct:[id number] Age/Sex: 88 / F Adm Date: 4 Loc: Room: 5X4515-7 Type: ADM IN Attending Dr: Everett Lawson [...] signed by MD Kartik Vilchis> 03/13/24 1321 [facility] Work Phone: Progress note Author Kartik Vilchis [facility] March 14, 2024 6:18pm Note Date/Time March 14, 2024 8:41a m [facility] [address] [place] [address] Pulmonology Progress Note Signed Patient: Milind Tate MR#: [id number] : 1935 Acct:[id number] Age/Sex: 88 / F Adm Date: 4 Loc: Room: 2Y9610-1 Type: DIS IN Attending Dr: Everett Lawson [...] perspective. Documented By: Kartik Vilchis MD 4 1867 Signed By: <Electronically signed by MD Kartik Vilchis> 03/14/24 8704 [facility] Work Phone: Summary Purpose Family [...] Unilateral weakness Sara Blake MD [address] [facility] [place] [address] [place] [address] [facility] Sched PR Referral ID Status Reason Start Date Expiration Date V isits Requested Visits Authorized [id number] Authorized 11/17/2022 11/17/2023 1 1 Reason 01/24/23 @ 1:40 MR I and carotid US pending. Family appropriately concerned for stroke. Request Neurologist w [facility] in [facility]. Diagnosis 1 Unilateral weakness (R53.1) Referral Organization [facility] Referring Provider First Name Sara Referring Provider Last Name Hayden Referring Provider Specialty Family [facility] Referred Organization [facility] Referred Address [address] [place] [phone] Referred Provider Specialty Neurology Referral Priority Routine Referral Appointment Date 2023-01-24 General Notes Ramya Quezada 10:17:43 AM >recieved today, insurance card and [facility] summary notes attached. Waiting on MRI and [...] with Milind and she is going to [facility] in [facility] Specialty Diagnoses / Procedures Referred By Tyree johns Referred To Contact Cardiology Diagnoses Takotsubo syndrome Procedures Transthoracic Echo Limited NJ ECHO TRANSTHORC R-T 2D W/WO M-MODE REC F-UP/LMTD NJ DOP ECHOCARD COLOR FLOW VELOCITY MAPPING [place] DOP ECHOCARD PULSE WAVE W/SPECTRAL F-UP/LMTD STD Esteban Pineda, PROFESSOR OF ECONOMICS-STUDENT ASSISTANT [address] [facility] [address], [address] [place] [id number] Referral ID Status Reason Start Date Expiration Date Visits Requested Visits Authorized [id number] Pending Review Perform Procedure 03/21/2024 03/21/2025 1 1 Specialty Diagnoses / Procedures Referred By Tyree johns Referred To Contact Cardiology Diagnoses Takotsubo syndrome Procedures Follow Up In Cardiology Esteban Pineda, PROFESSOR OF ECONOMICS-STUDENT ASSISTANT [address] [facility] [address], [address] [place] [address] Ismael Lawson, [address] [facility] [address], [facility] [address] [place] [address] Referral ID Status Reason Start Date Expiration Date V isits Requested Visits Authorized [id number] Authorized 03/21/2024 03/21/2025 1 1 Chief Complaint [...] pain Advancing dementia Anxiety Hypertension ST elevation MN (STEMI) Takotsubo cardiomyopathy Acute coronary syndrome Depression Hair loss Hypertension Hypomagnesemia UTI (urinary tract infection) Additional Source Comments INFORMATION SOURCE (unrecogn ized section and content) DATE CREATED AUTHOR 02/03/2019 [facility] DATE CREATED AUTHOR AUTHOR'S ORGANIZ ATION 12/09/2021 [facility] DATE CREATED AUTHOR AUTHOR'S ORGANIZ ATION 06/18/2022 [facility] DATE CREATED AUTHOR AUTHOR'S ORGANIZ ATION 11/04/2022 [facility] DATE CREATED AUTHOR AUTHOR'S ORGANIZ ATION 12/30/[address] [facility] ical Center DATE CREATED AUTHOR AUTHOR'S ORGANIZ ATION 12/30/2022 [employer] DATE CREATED AUTHOR AUTHOR'S ORGANIZ ATION 02/06/2023 [facility] [place] [facility] DATE CREATED AUTHOR AUTHOR'S ORGANIZ ATION 04/08/2023 [facility] DATE CREATED AUTHOR AUTHOR'S ORGANIZ ATION 07/06/2023 [facility] DATE CREATED AUTHOR AUTHOR'S ORGANIZ ATION 03/23/2024 [facility] DATE CREATED AUTHOR AUTHOR'S ORGANIZ ATION 04/23/2024 [facility] REASON FOR VISIT (unrecogniz ed section and content) Reason Comments New Patient Left wrist pain. DOI approx 4m. Pain varies Specialty Diagnoses / Procedures Referred By Tyree johns Referred To Contact Orthopaedics Diagnoses Left wrist pain Sara Blake MD [address] [place] [address] [place] [address] Kahlil Wakefield PA-C [address] [place] [address] [place] [address] Referral ID Status Reason Start Date Expiration Date V isits Requested Visits Authorized [id number] New Request 05/17/2023 06/10/2024 1 1 Reason Comments Follow-up TCM/frmc,Cath/stemi Care Teams (unrecognized sec tion and content) Warehouse Puller Relationship Specialty Start Date End Date Sara Blake MD [address] [place] [address] [place] [address] PCP - General Family Medicine 04/07/23 Team [...] 2024 End: March 14, 2024 W Morgan aLwson DO Admit Provider, Att ending Provider Active [...] MD Attending Provider Active Start: March 10 Warehouse Puller Relationship Specialty Start Date End Sara Blake MD [address] [place] [address] PCP - General 03/29/19 Team Status: Active [...] BE BASED ON THE PRIMARY CLINICAL RECORDS. [employer] provides no warranty or guarantee of the accuracy or completeness of information in this document.
--- NOTE | 2024-05-25 17:26 | ECG_ITS ---
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
--- NOTE | 2024-05-25 17:26 | XR_ITS ---
The [address] [address] Patient Name: MILIND SANDERS MRN: [id number] date: 1935 Sex: F Assigned Patient Location: ER Current Patient Location: ER Accession/Order Number: [id number] Exam Date: 05/25/2024 17:34 Report Date: 05/25/2024 18:45 At the request of: TAMARA FONG Procedure: XR chest 1V EXAM: XR chest 1V HISTORY: low pulse ox COMPARISON: 05/14/2024 TECHNIQUE: Chest X-ray AP, 1 view FINDINGS: Support devices: None. Lungs/pleura: No consolidation, effusion, or pneumothorax. Bibasilar atelectasis. Heart and mediastinum: Normal contours. Bones: No acute abnormality identified. XR/XR chest 1V Impression: Bibasilar atelectasis. Electronically authenticated by: GARETT CANTU Date: 05/25/2024 18:45
[2024-05-25 17:42] LABS: Basophils Percent Auto 0.5 % (0.2-2.0); Eosinophils Absolute Auto 0.2 10^3/uL (0.0-0.7); Eosinophils Percent Auto 3.3 % (0.9-7.0); Hematocrit 40.8 % (36.0-48.0); Hemoglobin 13.7 g/dL (12.0-16.0); Immature Granulocytes Abs Auto 0.02 10^3/uL (0.00-0.03); Immature Granulocytes Pct Auto 0.3 % (0.0-0.5); Lymphocytes Absolute Auto 2.3 10^3/uL (1.2-3.8); Lymphocytes Percent Auto 31.5 % (20.5-60.0); Mean Corpuscular HGB Conc 33.6 g/dL (29.9-35.2); Mean Corpuscular Hemoglobin 30.9 pg (26.7-34.0); Mean Corpuscular Volume 92.1 fL (81.0-99.0); Mean Platelet Volume 10.2 fL (9.5-13.5); Monocytes Absolute Auto 0.6 10^3/uL (0.3-0.8); Monocytes Percent Auto 8.3 % (1.7-12.0); Neutrophils Absolute Auto 4.1 10^3/uL (1.4-6.5); Neutrophils Percent Auto 56.1 % (43.0-75.0); Platelet Count 236 10^3/uL (150-450); Red Blood Count 4.43 10^6/uL (4.20-5.40); Red Cell Distribution Width 13.6 % (11.0-15.0); White Blood Count 7.3 10^3/uL (4.0-11.0)
--- NOTE | 2024-05-25 17:46 | ED_ITS ---
HPI HPI - General Adult General Chief complaint: Shortness of Breath/Dyspnea Stated complaint: LOW PULSE OX Time Seen by Provider: 05/25/24 17:26 Source: patient, medical record and other Source information: ems Mode of arrival: ambulance History of Present Illness HPI narrative: 88-year-old female was brought to the emergency room by squad from [facility]. Patient recently been admitted there for rehabilitation therapy after a fall at a assisted living facility. She had had weakness. No acute fractures have been noted. Patient was in the entertainment area today at the [facility] complaint of headache and her oxygen saturation was found to be low. She was sent here to the emergency room for evaluation. Patient shows no evidence of acute respiratory distress. She sitting comfortably answers all questions appropriately. Initial ox with 2 L of oxygen was 78 to 80%. It then increased to 95 to 100%. I does have good waveform. Patient denies chest pain. She sitting comfortably. Has no history of COPD or pulmonary embolism or other respiratory ailments. Related Data Home Medications ?Medication ?Instructions ?Recorded ?Confirmed citalopram 20 mg tablet 20 mg PO DAILY 05/14/24 05/25/24 hydroxyzine HCl 25 mg tablet 25 mg PO Q8H PRN anxiety 05/14/24 05/25/24 memantine 10 mg tablet 10 mg PO Q12H 05/14/24 05/25/24 venlafaxine 75 mg capsule,extended 75 mg PO DAILY 05/14/24 05/25/24 release 24 hr acetaminophen 500 mg tablet 1,000 mg PO Q6H PRN pain 05/16/24 05/25/24 (Tylenol Extra Strength) alprazolam 0.25 mg tablet 0.25 mg PO BID PRN anxiety 05/16/24 05/25/24 aspirin 81 mg chewable tablet 81 mg PO .QHS 05/16/24 05/25/24 [id number] 4 mg-folic acid 1 tab PO .QHS 05/16/24 05/25/24 200 mcg-vit K 25 mcg-lutein tablet (Centrum Minis Women 50 Plus) sumatriptan succinate 50 mg tablet 50 mg PO DAILY PRN migraine 05/16/24 05/25/24 headache gabapentin 300 mg capsule 300 mg PO Q8H 05/25/24 05/25/24 Allergies Allergy/AdvReac Type Severity Reaction Status Date / Time levofloxacin [From Levaquin] AdvReac Severe muscle Verified 05/25/24 17:14 aches Sulfa (Sulfonamide AdvReac Intermediate Weakness Verified 05/25/24 17:14 Antibiotics) Opioid HPI Opioid Management Most Recent Opioid Data: Last Pain Scale 3 05/16/24 05:30 Last ORT Total Score 0 05/14/24 19:20 Last ORT Risk Category Low Risk 05/14/24 19:20 Review of Systems ROS Narrative All Systems are negative except as noted/marked.All systems reviewed and otherwise negative PFSH PFS Medical History (Updated 05/25/24 @ 19:42 by Marian De La Rosa) Diverticulitis ?K57.92 - Diverticulitis of intestine, part unspecified, without perforation or abscess without bleeding (ICD-10) Falls infrequently ?Z91.81 - History of falling (ICD-10) Migraines ?G43.909 - Migraine, unspecified, not intractable, without status migrainosus (ICD-10) Dizziness ?R42 - Dizziness and giddiness (ICD-10) Pain ?R52 - Pain, unspecified (ICD-10) Dementia ?F03.90 - Unspecified dementia, unspecified severity, without behavioral disturbance, psychotic disturbance, mood disturbance, and anxiety (ICD-10) 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 - Takotsubo syndrome (ICD-10) Surgical History H/O: hysterectomy ?Z90.710 - Acquired absence of both cervix and uterus (ICD-10) H/O hernia repair ?Z98.890 - Other specified postprocedural states (ICD-10) ?Z87.19 - Personal history of other diseases of the digestive system (ICD-10) FH: cholecystectomy ?Z83.79 - Family history of other diseases of the digestive system (ICD-10) Family History Father Family history of cancer Family history of stroke Daughter Family history of diabetes mellitus Family history of hypertension Mother Family history of hypertension Social History Within the past year, how often did you have a drink containing alcohol: never Score interpretation: A score less than 3 is consistent with normal alcohol consumption. Smoking status: Never smoker Non-prescribed substance use: denies use Previous occupational history: retired Highest level of school completed/degree received: high school graduate Are you now , , , , never or living with a partner: In a typical week, how many times do you talk on the telephone with family, friends, or neighbors: 3 or more times per week How often do you get together with friends or relatives: 3 or more times per week How often do you attend anabaptism or sabianism services: never Little interest or pleasure in doing things: not at all Feeling down, depressed, or hopeless: not at all Feel stressed/tense/nervous/anxious/difficulty sleeping: not at all Do you think of yourself as: straight/heterosexual Gender Identity: female Exam Narrative Exam Narrative: Nurses note and vital signs reviewed and patient is not hypoxic. General: The patient appears well and in no apparent distress. Patient is resting comfortably on cart. Skin: Warm, dry, no pallor noted. There is no rash noted. Head: Normocephalic, atraumatic Eye: Normal conjunctiva, no drainage, EOMI. PERRL Ears, Nose, Mouth, and Throat: oral mucosa is moist. Nares patent. Mouth without vesicles. Ear canals patent. Tm's without Erythema Cardiovascular: Regular Rate and Rhythm Respiratory: Patient is in no distress, no accessory muscle use, lungs are diminished to auscultation, no wheezing, rales or rhonchi Back: non-tender, no CVA tenderness bilaterally to percussion. GI: Normal bowel sounds, no tenderness to palpation, no masses appreciated. No rebound, guarding, or rigidity noted. Musculoskeletal: The patient has no evidence of calf tenderness, no pitting edema, symmetrical pulses noted bilaterally Neurological: A&O x3, normal speech Psychiatric: Cooperative Constitutional Vital Signs, click to edit/add: Last Vital Signs Temp 97.8 F 05/25/24 17:09 Pulse 92 H 05/25/24 19:31 Resp 18 05/25/24 19:31 BP 131/75 05/25/24 19:31 Pulse Ox 94 L 05/25/24 19:31 O2 Del Method Vapotherm 05/25/24 19:31 O2 Flow Rate 4 05/25/24 17:34 Course Vital Signs Vital signs: Vital Signs Temperature 97.8 F 05/25/24 17:09 Pulse Rate 81 05/25/24 17:09 Respiratory Rate 18 05/25/24 17:09 Blood Pressure 156/98 H 05/25/24 17:09 Pulse Oximetry 91 L 05/25/24 17:09 Oxygen Delivery Method Nasal Cannula 05/25/24 17:09 Oxygen Delivery Flow Rate 2 05/25/24 17:09 Temperature 97.8 F 05/25/24 17:09 Pulse Rate 92 H 05/25/24 19:31 Respiratory Rate 18 05/25/24 19:31 Blood Pressure 131/75 05/25/24 19:31 Pulse Oximetry 94 L 05/25/24 19:31 Oxygen Delivery Method Vapotherm 05/25/24 19:31 Oxygen Delivery Flow Rate 4 05/25/24 17:34 Medical Decision Making MDM Narrative Medical decision making narrative: 88-year-old female was brought to the emergency room by squad from [facility]. Patient recently been admitted there for rehabilitation therapy after a fall at a assisted living facility. She had had weakness. No acute fractures have been noted. Patient was in the entertainment area today at the [facility] complaint of headache and her oxygen saturation was found to be low. She was sent here to the emergency room for evaluation. Patient shows no evidence of acute respiratory distress. She sitting comfortably answers all questions appropriately. Initial ox with 2 L of oxygen was 78 to 80%. It then increased to 95 to 100%. I does have good waveform. Patient denies chest pain. She sitting comfortably. Has no history of COPD or pulmonary embolism or other respiratory ailments. Upon arrival to the emergency room, patient's initial pulse ox 2 to 3 L of oxygen and was ranging from 88 to 94%. Patient did have episodes where her pulse ox did drop below 70%. Was uncertain at first if it was a good reading. After several attempts and adjusting the pulse ox probe, blood gas was drawn. pO2 was 42, CO2 was elevated at 27 oxygen saturation was 80%. Patient's oxygenation was increased to 6 L then to a nonrebreather and then we did end up placing her on a high flow Vapotherm. Oxygen saturations remained tween 88 and 94%. Remaining blood work including CBC CMP troponin and COVID were all within normal limits. It is uncertain why her oxygen saturation is dropping and then coming back. At no time this patient complained of shortness of breath and denies any shortness of breath. She does occasionally complain of headaches which is typical for her. I explained results to daughter who is at bedside and patient. They agree with plan of care patient will be admitted to the hospitalist. She will go to the ICU due to the high flow Vapotherm and continuous pulse ox. She is currently stable. Diagnosis of hypoxia Differential Diagnosis Differential Diagnosis: Hypoxia, pneumonia, PE Medical Records Medical records reviewed: Yes I reviewed the patient's medical records Lab Data Lab results reviewed: Yes I reviewed the patient's lab results Labs: Lab Results 05/25/24 05/25/24 05/25/24 Range/Units 17:30 18:10 18:40 WBC 7.3 (4.0-11.0) 10^3/uL RBC 4.43 (4.20-5.40) 10^6/uL Hgb 13.7 (12.0-16.0) g/dL Hct 40.8 (36.0-48.0) % MCV 92.1 (81.0-99.0) fL MCH 30.9 (26.7-34.0) pg MCHC 33.6 (29.9-35.2) g/dL RDW 13.6 (11.0-15.0) % Plt Count 236 (150-450) 10^3/uL MPV 10.2 (9.5-13.5) fL Neut % (Auto) 56.1 (43.0-75.0) % Lymph % (Auto) 31.5 (20.5-60.0) % [place] % (Auto) 8.3 (1.7-12.0) % Eos % (Auto) 3.3 (0.9-7.0) % Baso % (Auto) 0.5 (0.2-2.0) % Neut # (Auto) 4.1 (1.4-6.5) 10^3/uL Lymph # (Auto) 2.3 (1.2-3.8) 10^3/uL [place] # (Auto) 0.6 (0.3-0.8) 10^3/uL Eos # (Auto) 0.2 (0.0-0.7) 10^3/uL Baso # (Auto) 0.0 (0.0-0.1) 10^3/uL Abs Immat Gran (auto) 0.02 (0.00-0.03) 10^3/uL Imm/Tot Granulo (auto) 0.3 (0.0-0.5) % Puncture Site Rr ABG pH 7.462 H (7.350-7.450) ABG pCO2 38.8 (35.0-45.0) mmHg ABG pO2 42.0 L* (80.0-100.0) mmHg ABG HCO3 27.7 H (22.0-26.0) mmol/L ABG O2 Saturation 80.5 % ABG Base Excess 3.9 H (-2.0-2.0) mmol/L Wood Test Positive (POSITIVE) O2 Liters/Min 4 Sodium 140 (136-145) mmol/L Potassium 4.1 (3.5-5.1) mmol/L Chloride 102 (98-107) mmol/L Carbon Dioxide 33.1 H (21.0-32.0) mmol/L Anion Gap 9.0 BUN 21.0 H (7.0-18.0) mg/dL Creatinine 0.89 (0.55-1.02) mg/dL Est GFR ( Amer) >60 (>=60) Est GFR (Non-Af Amer) >60 (>=60) BUN/Creatinine Ratio 23.6 Glucose 120 H (74-106) mg/dL Calcium 8.9 (8.5-10.1) mg/dL Total Bilirubin 0.3 (0.2-1.0) mg/dL AST 27 (15-37) U/L ALT 31 (14-59) U/L Alkaline Phosphatase 103 (46-116) U/L Troponin I High Sens 15.6 (4.0-51.3) pg/mL Total Protein 6.6 (6.4-8.2) g/dL Albumin 3.3 L (3.4-5.0) g/dL Globulin 3.3 g/dL Albumin/Globulin Ratio 1.0 SARS-CoV-2 Ag (CV2AG) Negative (NEGATIVE) Imaging Data CT scan - chest: Radiologist's impression: ITS Impressions Chest X-Ray 05/25/24 17:26 Impression: Bibasilar atelectasis. Electronically authenticated by: GARETT CANTU Date: 05/25/2024 18:45 Chest CTA 05/25/24 18:22 IMPRESSION: No evidence of pulmonary embolus or acute intrathoracic abnormality. 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 Electronically authenticated by: GARETT CANTU Date: 05/25/2024 18:49 ECG Data Interpretation: 1719 sinus bradycardia rate of 54, interval 208 ms, QRS duration 128 ms, with T wave inversion noted in V2 3 4. No changes compared to previous EKG on 08/03/2023 no acute STEMI Discharge Plan Discharge Chief Complaint: Shortness of Breath/Dyspnea Clinical Impression: Hypoxia Time of Disposition Decision: 19:42 Condition: Fair Prescriptions / Home Meds: No Action citalopram 20 mg tablet 20 mg PO DAILY hydroxyzine HCl 25 mg tablet 25 mg PO Q8H PRN (Reason: anxiety) memantine 10 mg tablet 10 mg PO Q12H venlafaxine 75 mg capsule,extended release 24hr 75 mg PO DAILY alprazolam 0.25 mg tablet 0.25 mg PO BID PRN (Reason: anxiety) acetaminophen [Tylenol Extra Strength] 500 mg tablet 1,000 mg PO Q6H PRN (Reason: pain) aspirin 81 mg tablet,chewable 81 mg PO .QHS Centrum Minis Women 50 Plus 4 mg iron-200 mcg-25 mcg tablet 1 tab PO .QHS sumatriptan succinate 50 mg tablet 50 mg PO DAILY PRN (Reason: migraine headache) gabapentin 300 mg capsule 300 mg PO Q8H Print Language: Serbian Referrals: Dahiana Ren MD [Primary Care Provider] - 1 week
[2024-05-25 17:56] LABS: Alanine Aminotransferase 31 U/L (14-59); Albumin Level 3.3 g/dL (3.4-5.0); Alkaline Phosphatase 103 U/L (46-116); Aspartate Amino Transferase 27 U/L (15-37); BUN Creatinine Ratio 23.6; Bilirubin Total 0.3 mg/dL (0.2-1.0); Calcium 8.9 mg/dL (8.5-10.1); Carbon Dioxide 33.1 mmol/L (21.0-32.0); Chloride 102 mmol/L (98-107); Estimated GFR (African America >60 (>=60); Estimated GFR (Non-African Ame >60 (>=60); Globulin 3.3 g/dL; Glucose 120 mg/dL (74-106); Potassium 4.1 mmol/L (3.5-5.1); Sodium 140 mmol/L (136-145); Total Protein 6.6 g/dL (6.4-8.2); Troponin I High Sensitivity 15.6 pg/mL (4.0-51.3)
--- NOTE | 2024-05-25 18:04 | PC.NURSE ---
pt continues to keep dropping with her pulse ox. 84% on 4L NC. good waveform. PA at bedside, trying ear probe as well -- SpO2 continues to drop and go back up (lowest 78%). on 4L NC. Placed on NRB, SpO2 87%. resp therapy at bedside drawing blood gas. pt does not appear in any distress or SOB. Denies feeling bad
[2024-05-25 18:16] LABS: ABG PCO2 38.8 mmHg (35.0-45.0); Base Excess ABG 3.9 mmol/L (-2.0-2.0); HCO3 ABG 27.7 mmol/L (22.0-26.0); pH ABG 7.462 (7.350-7.450)
[2024-05-25 18:17] LABS: Allen Test POSITIVE (POSITIVE); Liters per Minute 4; O2 Mode NC; Oxygen Saturation ABG 80.5 %; Puncture Site RR
--- NOTE | 2024-05-25 18:22 | CT_ITS ---
[address] [address] Patient Name: MILIND SANDERS MRN: [id number] date: 1935 Sex: F Assigned Patient Location: ER Current Patient Location: Accession/Order Number: [id number] Exam Date: 05/25/2024 18:30 Report Date: 05/25/2024 18:49 At the request of: TAMARA FONG Procedure: CT angio chest EXAM: CT angio chest HISTORY: hypoxia COMPARISON: 08/03/2023 TECHNIQUE: CT chest with intravenous contrast was performed with timing for the evaluation for pulmonary arteries. Multiplanar reformats were performed. MIP (maximum intensity projection) images or 3D post processing was performed. Dose reduction techniques were achieved by using automated exposure control and/or adjustment of mA and/or kV according to patient size and/or use of iterative reconstruction technique. FINDINGS: Lungs: No consolidation, pneumothorax, or effusion. Bibasilar atelectasis. Airways: Normal. Mediastinum: No adenopathy. Aorta: Ectatic ascending aorta, measuring 3.7 cm. Cardiac: Normal size. No pericardial effusion. Pulmonary vasculature: Diagnostic opacification of pulmonary arteries without evidence of pulmonary embolus. Normal morphology. Bones: No acute bony abnormality. Axilla: No adenopathy. Thyroid gland: No abnormality demonstrated on provided imaging. Soft tissues: Unremarkable. Upper abdomen: Unremarkable. Additional findings: None. CT/CT angio chest IMPRESSION: No evidence of pulmonary embolus or acute intrathoracic abnormality. 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 Electronically authenticated by: GARETT CANTU Date: 05/25/2024 18:49
[2024-05-25] MEDS: IPRATROPIUM/ALBUTEROL SULFATE 3 ML AMPUL.NEB IH (19:05)
[2024-05-25 19:26] LABS: Internal Control Within Normal Limits; SARS-CoV-2 Ag NEGATIVE (NEGATIVE)
--- OUTSIDE RECORDS SUMMARY | 2024-05-25 21:59 | XMS_ITS ---
Patient Summarization (C-CDA 2.1 CCD) Created on: May 25, 2024 Milind Tate : 1935 Sex: Female Author Organization Sample organization Care Team Providers Care Fuel Quality Tech Name Role Phone PHYSICIAN, DEFAULT Admitting Unavailable PHYSICIAN, DEFAULT Attending Unavailable Hayden Sara E Unavailable Unavailable Unavailable CASEY AVALOS, DEON ERICKSON Attending Unava ilable CASEY AVALOS, DEON ERICKSON Attending Unava ilable Unavailable Primary Care Provider Unavailsarah e Sara Blake Unavailable Unavailable Unavailable Dr. Sara Blake Primary Care Unav ailable Renny, Ismael Attending Unavailable Renny, Ismael Referring Unavailable Renny, Ismael Attending Unavailable Hayden, Dr. Sara Brandon Primary Care Unav ailable Ismael Lawson Attending Unavailable Renny, Ismael Referring Unavailable Blake, [...] Unavailable BLAKE, SARA E Primary Care Unavailable JUAN, DR ESPINO Consulting Unavailable BLAKE, SARA E [...] Unavailable MARKER ., DR ESCUDERO Consulting Unavailable READERANUPAMA Consulting Unavailable BLAKE, SARA E Primary Care Unavailable LAN ., DR JOSE RAMON Parekh Admitting Unavailable LAN ., DR JOSE RAMON Parekh Attending Unavailable LAN ., DR JOSE RAMON Parekh Consulting Unavailable JEWEL DE SANTIAGO Consulting Unavailable BLAKE, SARA E Admitting Unavailable BLAKESARA E Attending Unavailable BLAKE, SARA E Primary Care Unavailable SELF, SELF Referring Unavailable HAYDEN, SARA Primary Care Unavailable ISMAEL NICHOLAS Attending Unavailable HAYDEN, SARA Primary Care Unavailable MEFTAH, CORINA I Referring Unavailable ISMAEL NICHOLAS Attending Unavailable Sara Blake MD Primary Care Provider [phone] HAYDEN, SARA Primary Care Unavailable HAYDEN, SARA Referring Unavailable KAHLIL WAKEFIELD Attending Unavailable SARA BLAKE Primary Care Unavailable MD Sara Blake Attending Provider [phone] MD Aravind Jackson Jr Emergency Provider MD Sara Blake Primary Care Provider DO Everett Lawson Admit Provider DO Everett Lwason Attending Provider [phone] MD Pinky Nicole Other Provider Sara Blake MD Primary Care Provider ESTEBAN PINEDA Attending Unavailable BLAKE, SARA E Primary Care Unavailable Hayden, Sara E Admitting Unavailable Blake, Sara E Primary Care Unavailable Sara Blake Attending Unavailable Sara Blake E Admitting Unavailable Sara Blake Attending Unavailable Everett Lawson Admitting Unavailable Everett Lawson Attending Unavailable Blake, Sara E Primary Care Unavailable Pinky Nicole Consulting Unavailable Allergies Allergy Classification Reported Allergen(s) Allergy Type Date of Onset Reaction(s) Facility (6 sources) Sulfonamides (Antibiotic); Translations: [Sulfa Drugs] Allergy to drug (finding) Nausea -[facility] [facility] DO Work Phone: (12 sources) Amoxicillin / Clavulanate Drug Allergy 07-05-20 23 Diarrhea [facility] (14 sources) cefdinir Drug Allergy Unknown [facility] Other (20 sources) Cefuroxime Drug Allergy 04-04-20 18 CARDENAS et diarrhea, Unknown Reaction, Unknown, Unknown Reaction, CARDENAS et diarrhea [facility] (14 sources) Cephalexin Drug Allergy Unknown [facility] Other (20 sources) Ciprofloxacin Drug Allergy 05-10-20 17 muscle weakness, Vomiting, Comment:muscl e weakness, Vomiting, Comment:muscl e weakness, muscle weakness [facility] (14 sources) HMG-CoA reductase inhibitor Drug allergy Unknown [facility] Other (16 sources) levoFLOXacin; Translations: [Levaquin] Drug Allergy 12-01-19 16 diarrhea [facility] (20 sources) Morphine Drug Allergy 05-10-20 17 Nausea and Vomiting [facility] Other (14 sources) NITROFURANTOIN, MACROCRYSTALS / Nitrofurantoin, Monohydrate Drug Allergy muscle weakness [facility] Other (15 sources) Sulfamethoxazole / Trimethoprim; Translations: [Bactrim] Drug Allergy shortness of breath [facility] (20 sources) Trimethoprim Drug Allergy 05-07-20 22 Nausea Only [facility] Other (5 sources) Amoxicillin / Clavulanate; Translations: [Augmentin] Drug Allergy 12-03-19 17 diarrhea [facility] (1 source) Cefuroxime Drug Allergy [facility] (1 source) Ciprofloxacin Drug Allergy [facility] (2 sources) Morphine Drug Allergy 03-28-20 13 [facility] (1 source) Nitrofurantoin Drug Allergy [facility] (1 source) Trimethoprim Drug Allergy [facility] (6 sources) levoFLOXacin Drug Allergy 05-07-20 22 Nausea and Vomiting [facility] (6 sources) Nitrofurantoin Drug Allergy 05-07-20 22 Headache [facility] (6 sources) Amoxicillin; Translations: [amoxicillin] Drug Allergy 05-07-20 22 Unknown Reaction, Unknown Reaction, diarrhea [facility] (6 sources) Clavulanate; Translations: [clavulanic acid] Drug Allergy 05-07-20 22 Unknown Reaction, Unknown Reaction, diarrhea [facility] (8 sources) Morphine Sulfate (Concentrate) *ANALGESICS - OPIOI Propensity to adverse reactions Unknown [facility] Other (8 sources) Medicinal cephalosporin and acting as antibacterial agent (FN) Drug allergy Unknown [facility] Other (8 sources) Ceclor *CEPHALOSPORINS* Propensity to adverse reactions Unknown [facility] Other (8 sources) Keflex *CEPHALOSPORINS* Propensity to adverse reactions 11-15-19 Unknown [facility] Other (5 sources) cefdinir; Translations: [cefdinir] Drug Allergy 02-09-20 [facility] (5 sources) Cephalexin; Translations: [cephalexin] Drug Allergy 02-09-20 [facility] (5 sources) Cephalosporins (Antibiotic); Translations: [Cephalosporins] Allergy to substance 02-09-20 [facility] (5 sources) Sulfamethoxazole; Translations: [sulfamethoxazole] Drug Allergy 02-09-20 shortness of breath [facility] (5 sources) Lcytluv-PVF-OoE Reductase Inhibitor; Translations: [Kydsvds-GED-GfB Reductase Inhibitor] Allergy to substance 02-09-20 [facility] (2 sources) Sulfonamides (Antibiotic); Translations: [SULFA (SULFONAMIDE ANTIBIOTICS)] Drug Intolerance 11-17-19 Nausea Only [facility] (1 source) Cefuroxime Drug Allergy 04-19-20 [facility] (1 source) Ciprofloxacin Drug Allergy 04-19-20 [facility] (1 source) levoFLOXacin Drug Allergy 04-19-20 [facility] (1 source) Morphine Drug Allergy 04-19-20 [facility] (1 source) Nitrofurantoin Drug Allergy 04-19-20 [facility] (1 source) Trimethoprim Drug Allergy 04-19-20 [facility] Encounters Encounter Date Encounter Type Care Provider Facility Start: 04-19-2024 End: 04-19-2024 Patient encounter procedure MD Aravind Jackson Jr Work Phone: [facility] Work Phone: Start: 04-19-2024 End: 04-19-2024 ambulatory MD Aravind Jackson Jr Work Phone: [facility] Work Phone: Start: 03-21-2024 End: 03-21-2024 ambulatory ESTEBAN K [facility] Start: 03-21-2024 End: 03-21-2024 Office outpatient visit 15 minutes Esteban Turner [place] MICROSCOPIST-INFORMATION AND DATA ARCHITECT ANALYST Work Phone: [facility] Comment on above: Takotsubo syndrome ( Primary Dx); BMI 23.0-23.9, adult Start: 03-16-2024 Non-patient / Non-visit MD Jennifer Heath Work Phone: [facility] Work Phone: Start: 03-10-2024 End: 03-14-2024 Non-patient / Non-visit MD Aravind Jackson Jr Work Phone: [facility] Cardiology Work Phone: Start: 03-10-2024 End: 03-14-2024 Non-patient / Non-visit MD Aravind Jackson Jr Work Phone: [facility] Phys[facility] Pulmonary Disease Work Phone: Start: 03-09-2024 End: 03-14-2024 Evaluation and management of inpatient MD Aravind Jackson Jr Work Phone: [facility] Work Phone: Start: 02-09-2024 End: 02-09-2024 ambulatory [facility] Work Phone: Start: 02-09-2024 End: 02-09-2024 Patient encounter procedure [facility] Work Phone: Start: 12-16-2023 Non-patient / Non-visit [facility] Work Phone: Start: 12-14-2023 Non-patient / Non-visit [facility] Work Phone: Start: 12-14-2023 Non-patient / Non-visit [facility] Work Phone: Start: 11-22-2023 End: 11-22-2023 ambulatory Sara Blake Other [facility] Other Start: 11-22-2023 Office outpatient vi sit 15 minutes Sara Blake [facility] Start: 11-22-2023 Telephone encounter Sara Blake [facility] Start: 11-22-2023 End: 11-22-2023 Patient encounter procedure [facility]- Start: 11-14-2023 End: 11-14-2023 ambulatory Sara Blake Other [facility] Other Start: 11-14-2023 Telephone encounter Sara Blake [facility] Start: 11-08-2023 End: 11-08-2023 ambulatory Sara Blake Other [facility] Other Start: 11-08-2023 Telephone encounter Sara Blake [facility] Start: 10-27-2023 End: 10-27-2023 ambulatory Sara Blake Other [facility] Other Start: 10-27-2023 Office outpatient vi sit 15 minutes Sara Blake [facility] Start: 08-15-2023 End: 08-15-2023 ambulatory Sara Blake Other [facility] Other Start: 08-15-2023 Telephone encounter Sara Blake [facility] Start: 08-11-2023 End: 08-11-2023 Departed Referred MD Sara Blake Work Phone: [facility] [place] Work Phone: Start: 08-11-2023 End: 08-11-2023 ambulatory Sara Blake [facility] Work Phone: Start: 08-11-2023 Office outpatient vi sit 25 minutes Sara Blake [facility] Start: 07-05-2023 ambulatory SARA HAYDEN [facility] Start: 07-05-2023 End: 07-05-2023 Office outpatient new 30 minutes Kahlil Wakefield PA-C Work Phone: [facility] Comment on above: De Quervain's diseas e (tenosynovitis) (Primary Dx); Arthritis of carpometacarpal (CMC) joint of left thumb; Arthritis of wrist, left Start: 05-17-2023 ambulatory SARA BLAKE [facility] Start: 04-29-2023 End: 04-29-2023 ambulatory Sara Blake Other [facility] Other Start: 04-29-2023 Telephone encounter Sara Blake [facility] Start: 04-07-2023 ambulatory SARA BLAKE [facility] Start: 02-09-2023 End: 02-09-2023 ambulatory Sara Blake Other [facility] Other Start: 02-09-2023 Telephone encounter Sara Blake [facility] Start: 01-28-2023 End: 01-29-2023 ambulatory MARIA INES JAZMINE Facility: Start: 01-24-2023 End: 01-24-2023 ambulatory Sara Blake Other [facility] Other Start: 01-24-2023 Telephone encounter Sara Blake [facility] Start: 12-28-2022 Office outpatient vi sit 25 minutes Sara Blake Work Phone: [facility] 250 DO Work Phone: Start: 12-28-2022 ambulatory Ismael Glaser y: Start: 11-17-2022 Transcribe Orders Sara jiménez MD Work Phone: [facility], Neuro[facility] Comment on above: Unilateral weakness (Primary Dx) Start: 11-15-2022 End: 11-15-2022 ambulatory Sara Blake Other [facility] Other Start: 11-15-2022 Transitional care thee webster srvc 14 day discharge Sara Blake [facility] Start: 11-08-2022 End: 11-08-2022 ambulatory Sara Blake Other [facility] Other Start: 11-08-2022 Telephone encounter Sara Blake [facility] Start: 11-03-2022 End: 11-03-2022 ambulatory [facility] Start: 11-03-2022 Telephone encounter Sara Blake [facility] Start: 11-02-2022 End: 11-02-2022 ambulatory [facility] Start: 10-25-2022 End: 10-28-2022 ambulatory SARA BLAKE Facility: Start: 06-15-2022 Chart Update Sara Blake Work Phone: [facility] 250 DO Work Phone: Start: 06-07-2022 Patient encounter procedure Sara Blake Work Phone: [facility] [address] [place] Work Phone: Start: 06-02-2022 End: 06-03-2022 ambulatory SARA BLAKE Facility:H1 Start: 05-21-2022 End: 05-22-2022 ambulatory MARIA INES LUCERO Facility:[facility]1 Start: 05-19-2022 ambulatory Ismael Glaser y: Start: 05-19-2022 Transitional care thee webster srvc 7 day discharge Sara Blake Work Phone: [facility] 250 DO Work Phone: Start: 05-07-[address] Sara Blake Facility:[id number] Start: 05-07-2022 AUDIT Sara Blake Work Phone: [facility] 250 DO Work Phone: Start: 05-07-2022 Message [facility] Work Phone: Start: 05-07-2022 End: 05-07-2022 ambulatory SARA BLAKE Facility:H1 Start: 05-07-2022 ambulatory Ismael Glaser y:[id number] Start: 04-29-2022 End: 04-30-2022 ambulatory SARA BLAKE Facility:[facility]1 Start: 04-14-2022 End: 04-15-[address] KENZIE MARTINEZ Facility:H1 Start: 03-04-2022 ambulatory SARA BLAKE Facility :H1 Start: 02-01-2019 End: 02-02-2019 Patient encounter procedure DEFAULT PHYSICIAN Facility:[facility] Goals Date Patient Goal Desired Activity /State Immunizations Immunization Date Immunization Notes Care Provider Elton coon 10-08-2021 Moderna COVID-19 Vac cine 100 MCG/0.5ML Intramuscular Suspension Sara Blake [facility] Work Phone: 09-28-2021 Pfizer-BioNTech COVI D-19 Vacc 30 MCG/0.3ML Intramuscular Suspension Sara Blake Work Phone: [facility] 12-31-2020 Joaquim COVID-19 Vac cine 0.5 ML Intramuscular Suspension Sara Blake Work Phone: [facility] Medications Current Medications Medication Drug Class(es) Dates [...] anxiety Hydroxyzine Hcl Active 0 .ROUTE .COMPLEX 90 February 16, 2024 9:43am TAKE ONE TABLET [...] hydrochloride 10 mg oral tablet (20 sources) O-lzqpxc-Q-asparta te Receptor Antagonist Start: 06-19-2023 take 10 [...] scontinued 25 MG PO Twice daily 60 30 May 07, 2022 12:00am February 09, 2024 1:42pm Multivitamin preparation (2 sources) Multi Vitamin Ac tive [place] 8-Iie-Tgc-Fish Oil (5 sources) Start: take 2 capsules by mouth once daily [place] 7-Eko-Rdv-Fish Oil Active 2 CAP PO Daily May 07, 2022 12:00am sertraline 25 mg oral tablet (1 source) Serotonin Reuptake Inhibitor take 1 tablet by mouth every twenty-four hours Sertraline HCl 25 MG 1 tablet once a day Active SUMAtriptan 50 mg oral tablet (20 sources) Serotonin-1b and Serotonin-1d Receptor Agonist Start: take 50 mg by mouth once daily Sumatriptan Succinate Active 50 MG PO Daily April 04, 2024 1:18pm Start: 05-07-2022 End: 04-04-2024 take 100 mg by mouth once daily Sumatriptan Succinate Discontinued 100 MG PO Daily May 07, 2022 12:00am April 04, 2024 1:19pm take 1 tablet by corazon every two hours as needed, then take [...] 1.5 mg/ml oral solution (5 sources) Uncompetitive E-ezrhgp-H-aspartate Receptor Antagonist, Sigma-1 Agonist Start: 07-24-2019 [place] DM 7.5-7.5 MG/5ML 1 teaspoon as directed [...] days Start: 07-24-2019 take 1 capsule by [facility] every twelve hours Doxycycline Monohydrate 100 MG 1 capsule Orally every 12 hrs for 10 days Jul, Not-Taking take 1 tablet by [facility] once daily Doxycycline Monohydrate 100 MG Oral Tablet TAKE 1 TABLET DAILY. Quantity: 0 Refills: 0 Ordered: 11-May-2022 DO Active Fish Oil CAPS (1 source) Fish Oil CAPS ta ke 2 capsules daily Quantity: 0 Refills: 0 Ordered: 11-May-2022 DO Active gabapentin 300 mg oral capsule (13 sources) Anti-epileptic Agent Start: End: 4 take 300 mg by mouth [...] 02-09-2024 Nitroglycerin Discontinued 0.4 MG SUBLINGUAL Q5M May 07, 2022 12:00am February 09, 2024 1:42pm Nitroglycerin 0. 4 MG as directed Sublingual Active omega-3 acid ethyl esters (mcfp) 1000 mg oral capsule (5 sources) take 2 capsules by mouth every twelve hours Lovaza 1 GM 2 capsules Orally Twice a day Not-Taking [place]-3 Fatty Acids 1000 MG (5 sources) take 1 capsule by mouth once daily [place]-3 Fatty Acids 1000 MG 1 capsule Orally Once a day Not-Taking Omeprazole (5 sources) Proton Pump Inhibitor Omeprazole Not-Takin g phenazopyridine hydrochloride 200 mg oral tablet (5 sources) Start: 019 take 1 tablet by mouth every eight hours Pyridium 200 MG 1 tablet after meals Orally Three times a day for 2 day(s) Jul, Not-Taking predniSONE 5 mg oral tablet (18 sources) Start: 022 End: 05-29-2 024 take 5 mg by mouth once daily [...] 07, 2022 12:00am February 09, 2024 1:43pm Payers Date Payer Category Payer Medicare [id number] 2017 Medicare [id number] 1959 Medicare [id number] 1959 Self-pay 1935 Unknown [id number] 2.16.8 40.1.559108.3.579.2.647 1935 Unknown [id number] 2.16. 840.1.131271.3.579.2.903 1935 Unknown [id number] 2.16. 840.1.637439.3.579.2.356 1937 Unknown [id number] 2.16. 840.1.266588.3.579.2.356 1937 Unknown [id number] 2.16. 840.1.590884.3.579.2.356 1937 Unknown [id number] 2.16. 840.1.298972.3.579.2.356 1937 Unknown [id number] 2.16.84 0.1.913788.3.579.2.593 1935 Unknown [id number] 2.16.84 0.1.472108.3.579.2.593 1937 Unknown [id number] 2.16.84 0.1.341191.3.579.2.593 1937 Unknown [id number] 2.16.84 0.1.426279.3.579.2.593 1937 Unknown [id number] 2.16.84 0.1.738209.3.579.2.593 1937 Unknown [id number] 2.16.84 0.1.191956.3.579.2.593 1937 Unknown [id number] 2.16.84 0.1.543926.3.579.2.593 1937 Unknown [id number] 2.16.84 0.1.013142.3.579.2.593 1937 Unknown [id number] 2.16.8 40.1.695799.3.579.2.983 1937 Unknown [id number] 2.16.8 40.1.512455.3.579.2.983 1937 Unknown [id number] 2.16.8 40.1.641957.3.579.2.983 1937 Unknown [id number] 2.16.8 40.1.119103.3.579.2.983 1937 Unknown [id number] 2.16.8 40.1.724056.3.579.2.1244 Unknown Unknown [id number] 2.16.8 40.1.819062.3.579.2.531 Unknown [id number] 2.16.8 40.1.162531.3.579.2.531 Unknown [id number] 2.16.8 40.1.142928.3.579.2.531 Plan of Treatment Date Care Activity Detail Author Start: 12-25-2024 End: 12-25-2024 Patient encounter procedure 12/25/2024 1:20 PM EST Office Visit [facility] [address] [facility] [place] [address] Ismael Lawson DO [address] [facility] [place], [place] [id number] [facility] Start: 06-24-2024 Influenza vaccination Influenz a Vaccine (Season Ended) [facility] Start: 03-21-2024 End: 03-21-2026 US Heart Transthoracic Transthoracic Echo Limited Echocardiography Routine Takotsubo syndrome Expected: 03/21/2024 (Approximate), Expires: 03/21/2026 [facility] Service Area Work Phone: Comment on above: Expected: 03/21/2024 (Approximate), Expires: 03/21/2026 Start: 03-14-2024 [facility] Start: 03-13-2024 End: 03-13-2024 [facility] Start: 03-12-2024 [facility] Start: 03-11-2024 [facility] Start: 03-10-2024 End: 03-10-2024 [facility] Start: 03-09-2024 End: 03-09-2024 [facility] Start: 03-09-2024 Consultation [facility] Start: 03-09-[address] [facility] Start: 03-09-2024 Referral to cardiac rehabilitation program [facility] Start: 03-09-2024 Fluoroscopy of Left Heart using Low Osmolar Contrast Fluoroscopy of Left Heart using Low Osmolar Contrast [facility] Start: 03-09-2024 Fluoroscopy of Multi ple Coronary Arteries using Low Osmolar Contrast Fluoroscopy of Multiple Coronary Arteries using Low Osmolar Contrast [facility] Start: 03-09-2024 Measurement of Cardi ac Sampling and Pressure, Left Heart, Percutaneous Approach Measurement of Cardiac Sampling and Pressure, Left Heart, Percutaneous Approach [facility] Start: 03-09-2024 [facility] Start: 01-11-2024 FUV, Provider: Ismael Lawson, Status: Pen, Time: 11:20 AM FUV, Provider: Ismael Lawson, Status: Pen, Time: 11:20 AM [facility] DO Work Phone: Start: 09-08-2023 End: 09-08-2023 Patient encounter procedure 09/08/2023 1:10 PM EST Office Visit [facility] [address] [phone] Kahlil Wakefield PA-C [address] [phone] [facility] Start: 08-11-2023 Bacteria identified in Urine by Culture [facility] Start: 06-24-2023 COVID-19 Vaccine ( season) COVID-19 Vaccine ( season) [facility] Start: 06-24-2023 Influenza vaccination INFLUENZA VACC INE (#1) [facility] Start: 12-01-2022 FUV, Provider: Ismael Lawson, Status: Pen, Time: 10:50 AM FUV, Provider: Ismael Lawson, Status: Pen, Time: 10:50 AM [facility] 250 DO Work Phone: Start: 11-25-2022 End: 11-25-2022 Patient encounter procedure 11/25/2022 Appointment Radiology Deon Farley Jr., MD [address] [place] [address] [facility] Start: 06-24-2022 Influenza vaccination Sequenti al Influenza Vaccine (#1) [facility] Start: 06-07-2022 ECHO, Provider: SAIRA [facility]VI ULTRASOUND 01,[id number], Status: Pen, Time: 10:45 AM ECHO, Provider: SAIRA [facility]VI ULTRASOUND 01,[id number], Status: Pen, Time: 10:45 AM [facility] 250 DO Work Phone: Start: 05-19-2022 FUVHOSP, Provider: Ismael Lawson, Status: Pen, Time: 11:40 AM FUVHOSP, Provider: Ismael Lawson, Status: Pen, Time: 11:40 AM [facility] 250 DO Work Phone: Start: 11-23-2021 COVID-19 VACCINE (3 - Booster for Joaquim series) COVID-19 VACCINE (3 - Booster for Joaquim series) [facility] Start: 2002 Fall risk assessment Falls Risk Asse ssment [facility] Start: 2002 Pneumococcal vaccination PNEUMOCOCCAL VACCINE SERIES (1 - PCV) [facility] Start: 2002 Pneumococcal Vaccine : Age 65+ (1 - PCV) Pneumococcal Vaccine: Age 65+ (1 - PCV) [facility] Start: 1997 RSV patient s and/or patients aged 60+ years (1 - 1-dose 60+ series) RSV patients and/or patients aged 60+ years (1 - 1-dose 60+ series) [facility] Start: 1987 Administration of herpes zoster vaccine Zoster Vaccines (1 of 2) [facility] Start: 1987 Zoster vaccine hzv l natalya for subcutaneous use ZOSTER (SHINGLES) VACCINE (1 of 2) [facility] Start: 1987 Zoster Vaccines (1 o f 2) Zoster Vaccines (1 of 2) [facility] Start: 1982 Screening for malign ant neoplasm of colon COLORECTAL CANCER SCREENING DISCUSSION [facility] Start: 1977 Screening for malign ant neoplasm of breast MAMMOGRAM SCREENING DISCUSSION [facility] Start: 1959 DTaP/Tdap/Td Vaccine s (1 - Tdap) DTaP/Tdap/Td Vaccines (1 - Tdap) [facility] Start: 1958 Screening for malign ant neoplasm of cervix CERVICAL CANCER SCREENING DISCUSSION [facility] Start: 1956 Third diphtheria, tetanus and acellular pertussis (DTaP) vaccination TDAP (ADULT) [facility] Start: 1955 Diabetes mellitus screening Diabetes Screening [facility] Start: 1949 Depression screening using PHQ-9 (Patient Health Questionnaire 9) score Depression Screening (PHQ-2/9) [facility] [facility] Start: 1943 Pneumococcal Vaccine : 65+ Years (1 of 2 - PCV) Pneumococcal Vaccine: 65+ Years (1 of 2 - PCV) [facility] Start: 1940 History and physical examination, annual for health maintenance Wellness Visit [facility] Start: 02-15-1938 COVID-19 Vaccine (#1) COVID-19 Vacci ne (#1) [facility] Start: 1937 Lipid panel Lipid Panel [facility] Start: 1937 Medicare Annual Wellness Visit Medicare Annual Wellness Visit (AWV) [facility] Start: 1937 Screening for osteoporosis [facility] Start: 1937 Tetanus vaccination [facility] Bacteria identified in Urine by Culture [facility] Comprehensive metabo lic 2000 panel - Serum or Plasma [facility] Patient Education Cardiomyopathy (DC) Know your Meds [facility] Work Phone: Patient referral [facility] Work Phone: [facility] Problems Active Problems Problem Classification Problem Date [...] Coronary atherosclerosis; Translations: [Atherosclerotic heart disease of [place] coronary artery without angina pectoris] Onset: 03-09-2024 [...] 04-16-2022 Chronic Other aftercare (1 source) Other detention (current) drug therapy; Translations: [OTH WORKDAY FINANCIALS CONSULTANT CURRENT DRUG THERAPY] Onset: 11-08-2022 Episodic Other aftercare (1 source) predatory animal exterminator (current) use of aspirin; Translations: [SHELTER CURRENT USE OF ASPIRIN] Onset: 11-08-2022 Episodic [...] 11-08-2022 Episodic Unclassified (1 source) [facility] Alarm Service Technician Review Required; Translations: [[place] [facility] Alarm Service Technician Review Required] Onset: 11-03-2022 Unclassified (1 source) [...] a smoker] Unclassified (1 source) [place] [facility] Alarm Service Technician Review Required; Translations: [[place] [facility] Alarm Service Technician Review Required] Onset: 11-03-2022 Unclassified (3 sources) Moderate dementia without behavioral disturbance, psychotic disturbance, mood disturbance, or anxiety, unspecified dementia type F03.B0 Unclassified (1 source) Onset: 03-21-2024 03-21-2024 Procedures Date Procedure Procedure Detail Performing Clinician Start: 03-13-2024 Lactoferrin measurement MD Aravind Jackson Jr Work Phone: Start: 03-10-2024 Urine culture MD Aravind Jackson Jr Work Phone: Start: 03-09-2024 [facility] Angio MD Evin Jackson Jr Work Phone: Start: 03-09-2024 Plain chest X-ray MD Cat Jackson Jr Work Phone: Start: 07-05-2023 Injection 1 tendon sheath/ligament aponeurosis Alissa Salina MANAGER CUSTOMER Start: 06-07-2022 Echocardiography Sara Blake Work Phone: Start: 10-24-2009 Total colonoscopy Stephanie Blake Work Phone: Appendectomy Sara Blake Work Phone: Cardiac catheterization Flaco Blake Work Phone: Extraction of wisdom tooth M noah Blake Work Phone: Hernia repair Sara Blake Work Phone: Hysterectomy Sara Blake Work Phone: Tonsillectomy Sara Blake Work Phone: Results Test Name Value Interpretation Reference Range Facility Urine Cultureon 04-19-2024 Bacteria identified Cx Nom (U) ORGANISM: Escherichia coli (O:ESCCOL) Vantage Count >100,000 Aerobic SAURABH Charge (NMIC56) SUSCEPTIBILITY [...] RESISTANT TO ALL B-LACTAM DRUGS. PERFORMED BY: [address] [place] [address] PATHOLOGIST LIVE AMMUNITION INSPECTOR CHRISTIANE EVANS M.D. Normal [facility] Comment on above: Performed By: #### P TT, CBC, CK, PT, HS TROP, CMP, BNP #### [address] Basic Metabolic Panelon 02-22 Creatinine Clr Calc Pharmacy 30.32 Normal [facility] Comment on above: Order Comment: PER R N MELLO DRAW AT 0730. SMB 0444. Result Comment: PERF ORMED BY: [place] [address] PATHOLOGIST LIVE AMMUNITION INSPECTOR CHRISTIANE EVANS M.D. Performed By: #### P TT, CBC, CK, PT, HS TROP, CMP, BNP #### [address] GFR/1.73 sq M.predicted MDRD (S/P/Bld) [Vol rate/Area] 49.475 mL/min/{1.73_m2} Normal [facility] Comment on above: Order Comment: PER R N MELLO DRAW AT 729. SMB 0444. Performed By: #### P TT, CBC, CK, PT, HS TROP, CMP, BNP #### [address] Calcium [Mass/volume] in Ser um or PlasmaOrdered By: Everett Lawson on 03-14-2024 Calcium [Mass/Vol] 8.8 mg/dL Normal 8.6-10.3 [facility] Comment on above: Order Comment: PER R N MELLO DRAW AT 729. SMB 0444. Performed By: #### P TT, CBC, CK, PT, HS TROP, CMP, BNP #### [facility] [address] [place] [address] [place] Carbon dioxide, total [Moles /volume] in Serum or PlasmaOrdered By: Everett Lawson on 03-14-2024 CO2 [Moles/Vol] 26.4 mmol/L Normal 21.0-31.0 [facility] Comment on above: Order Comment: PER R N MELLO DRAW AT 729. SMB 0444. Performed By: #### P TT, CBC, CK, PT, HS TROP, CMP, BNP #### [facility] [address] [place] [address] [place] Chloride [Moles/volume] in [place] or PlasmaOrdered By: Everett Lawson on 03-14-2024 Chloride [Moles/Vol] 107 mmol/L Normal 98-107 [facility] Comment on above: Order Comment: PER R N MELLO DRAW AT 0730. SMB 0444. Performed By: #### P TT, CBC, CK, PT, HS TROP, CMP, BNP #### [facility] [address] [place] [address] [place] Creatinine [Mass/volume] in Serum or PlasmaOrdered By: Everett Lawson on 03-14-2024 Creatinine [Mass/Vol] 1.09 mg/dL Normal 0.60-1.20 [facility] Comment on above: Order Comment: PER R N MELLO DRAW AT 0730. SMB 0444. Performed By: #### P TT, CBC, CK, PT, HS TROP, CMP, BNP #### [facility] [address] [place] [address] [place] Glucose [Mass/volume] in Ser um or PlasmaOrdered By: Everett Lawson on 03-14-2024 Glucose [Mass/Vol] 93 mg/dL Normal 70-100 [facility] Comment on above: ADA recommended refe rence rangeRandom Glucose Reference Range is dependent on time and content of last meal. Glucose of more than 200 mg/dL in a nonstressed, ambulatory subject supports the diagnosis of Diabetes Mellitus. Order Comment: PER R N MELLO DRAW AT 0730. SMB 0444. Result Comment: [place] om Glucose Reference Range is dependent on time and content of last meal. Glucose of more than 200 mg/dL in a nonstressed, ambulatory subject supports the diagnosis of Diabetes Mellitus. ADA recommended reference range Performed By: #### P TT, CBC, CK, PT, HS TROP, CMP, BNP #### [facility] [address] No Panel InformationOrdered By: Everett Lawson on 03-14-2024 Estimated GFR (CKD-EPI) 49.475 mL/Min [facility] Creatinine Clearance (Chem 30.32 [facility] Potassium [Moles/volume] in Serum or PlasmaOrdered By: Everett Lawson on 03-14-2024 Potassium [Moles/Vol] 3.6 mmol/L Normal 3.5-5.1 [facility] Comment on above: Order Comment: PER R N MELLO DRAW AT 0730. SMB 0444. Performed By: #### P TT, CBC, CK, PT, HS TROP, CMP, BNP #### [facility] [address] Serum or plasma anion gap de terminationOrdered By: Everett Lawson on 03-14-2024 Anion gap [Moles/Vol] 9.2 mmol/L Normal 6.0-15.0 [facility] Comment on above: Order Comment: PER R N MELLO DRAW AT 0730. SMB 0444. Performed By: #### P TT, CBC, CK, PT, HS TROP, CMP, BNP #### [facility] [address] [place] [address] Sodium [Moles/volume] in Ser um or PlasmaOrdered By: Everett Lawson on 03-14-2024 Sodium [Moles/Vol] 139 mmol/L Normal 136-145 [facility] Comment on above: Order Comment: PER R N MELLO DRAW AT 0730. SMB 0444. Performed By: #### P TT, CBC, CK, PT, HS TROP, CMP, BNP #### [facility] [address] [place] [address] Urea nitrogen [Mass/volume] in Serum or PlasmaOrdered By: Everett Lawson on 03-14-2024 Urea nitrogen [Mass/Vol] 27 mg/dL High 7-25 [facility] Comment on above: Order Comment: PER R N MELLO DRAW AT 07. SMB 0444. Performed By: #### P TT, CBC, CK, PT, HS TROP, CMP, BNP #### [facility] [address] Basic Metabolic Panelon 02-22 Anion gap [Moles/Vol] 13.3 mmol/L Normal 6.0-15.0 [facility] Comment on above: Performed By: #### B MP #### [address] Calcium [Mass/Vol] 8.5 mg/dL Low 8.6-10.3 [facility] Comment on above: Performed By: #### B MP #### [address] Chloride [Moles/Vol] 106 mmol/L Normal 98-107 [facility] Comment on above: Performed By: #### B MP #### [address] CO2 [Moles/Vol] 25.4 mmol/L Normal 21.0-31.0 [facility] Comment on above: Performed By: #### B MP #### [address] Creatinine [Mass/Vol] 1.06 mg/dL Normal 0.60-1.20 [facility] Comment on above: Performed By: #### B MP #### [place] [address] [place] Creatinine Clr Calc Pharmacy 28.75 Normal [facility] Comment on above: Result Comment: PERF ORMED BY: [place] [address] PATHOLOGIST LIVE AMMUNITION INSPECTOR CHRISTIANE EVANS M.D. Performed By: #### B MP #### [place] [address] [place] GFR/1.73 sq M.predicted MDRD (S/P/Bld) [Vol rate/Area] 51.160 mL/min/{1.73_m2} Normal [facility] Comment on above: Performed By: #### B MP #### [address] Glucose [Mass/Vol] 91 mg/dL Normal 70-100 [facility] Comment on above: Result Comment: [place] Glucose Reference Range is dependent on time and content of last meal. Glucose of more than 200 mg/dL in a nonstressed, ambulatory subject supports the diagnosis of Diabetes Mellitus. ADA recommended reference range Performed By: #### B MP #### [address] Potassium [Moles/Vol] 3.7 mmol/L Normal 3.5-5.1 [facility] Comment on above: Performed By: #### B MP #### [address] Sodium [Moles/Vol] 141 mmol/L Normal 136-145 [facility] Comment on above: Performed By: #### B MP #### [address] Urea nitrogen [Mass/Vol] 25 mg/dL Normal 7-25 [facility] Comment on above: Performed By: #### B MP #### [address] Lactoferrin, Stool WBCon Lactoferrin, Stool WBC LACTOFERRIN Negative for Fecal Lactoferrin Immune suppression may cause reduced WBC counts, leading to a false negative result. ---- Reference range = Negative PERFORMED BY: [place] [address] PATHOLOGIST LIVE AMMUNITION INSPECTOR CHRISTIANE EVANS M.D. Normal [facility] Comment on above: Performed By: #### P TT, CBC, CK, PT, HS TROP, CMP, BNP #### [address] Stool lactoferrin detectionO rdered By: Glenn Woods on 03-13-2024 Lactoferrin Ql (Stl) [facility] Basic Metabolic Panelon 02-22 Anion gap [Moles/Vol] 9.4 mmol/L Normal 6.0-15.0 [facility] Comment on above: Performed By: #### B MP #### [address] Calcium [Mass/Vol] 8.6 mg/dL Normal 8.6-10.3 [facility] Comment on above: Performed By: #### B MP #### [place] [address] [place] Chloride [Moles/Vol] 106 mmol/L Normal 98-107 [facility] Comment on above: Performed By: #### B MP #### [address] CO2 [Moles/Vol] 25.4 mmol/L Normal 21.0-31.0 [facility] Comment on above: Performed By: #### B MP #### [address] Creatinine [Mass/Vol] 1.10 mg/dL Normal 0.60-1.20 [facility] Comment on above: Performed By: #### B MP #### [address] Creatinine Clr Calc Pharmacy 27.70 Normal [facility] Comment on above: Result Comment: PERF ORMED BY: [place] [address] PATHOLOGIST LIVE AMMUNITION INSPECTOR CHRISTIANE EVANS M.D. Performed By: #### B MP #### [address] GFR/1.73 sq M.predicted MDRD (S/P/Bld) [Vol rate/Area] 48.936 mL/min/{1.73_m2} Normal [facility] Comment on above: Performed By: #### B MP #### [address] Glucose [Mass/Vol] 86 mg/dL Normal 70-100 [facility] Comment on above: Result Comment: [place] Glucose Reference Range is dependent on time and content of last meal. Glucose of more than 200 mg/dL in a nonstressed, ambulatory subject supports the diagnosis of Diabetes Mellitus. ADA recommended reference range Performed By: #### B MP #### [facility] [address] Potassium [Moles/Vol] 3.8 mmol/L Normal 3.5-5.1 [facility] Comment on above: Performed By: #### B MP #### [facility] [address] Sodium [Moles/Vol] 137 mmol/L Normal 136-145 [facility] Comment on above: Performed By: #### B MP #### [facility] [address] Urea nitrogen [Mass/Vol] 29 mg/dL High 7-25 [facility] Comment on above: Performed By: #### B MP #### [address] ECG 12 lead ECGon 03-12-2024 ECG 12 lead ECG [facility] [place] [address] [place] [address] Electrocardiograph Report Signed Patient: Milind Tate MR#: [id number] : 1935 Acct:[id number] Age/Sex: 88 / F ADM Date: 03/09/24 Loc: Room: [address] [place] [address] Type: ADM IN Attending Dr: Everett Lawson [...] of 11-MAR-2024 07:30, Confirmed by Prabha Lipscomb ([id number]) on 03/12/2024 5:16:13 PM Referred By: Electronically Signed By:Prabha Lipscomb Transcribed By: MUS Signed By Prabha Lipscomb MD 4 1716 Normal [facility] Basic Metabolic Panelon 02-21 Anion gap [Moles/Vol] 10.5 mmol/L Normal 6.0-15.0 [facility] Comment on above: Performed By: #### P TT, CBC, CK, PT, HS TROP, CMP, BNP #### [address] Calcium [Mass/Vol] 8.7 mg/dL Normal 8.6-10.3 [facility] Comment on above: Performed By: #### P TT, CBC, CK, PT, HS TROP, CMP, BNP #### [facility] [address] Chloride [Moles/Vol] 104 mmol/L Normal 98-107 [facility] Comment on above: Performed By: #### P TT, CBC, CK, PT, HS TROP, CMP, BNP #### [facility] [address] CO2 [Moles/Vol] 26.6 mmol/L Normal 21.0-31.0 [facility] Comment on above: Performed By: #### P TT, CBC, CK, PT, HS TROP, CMP, BNP #### [facility] [address] Creatinine [Mass/Vol] 1.25 mg/dL High 0.60-1.20 [facility] Comment on above: Performed By: #### P TT, CBC, CK, PT, HS TROP, CMP, BNP #### [facility] [address] [place] [address] [place] Creatinine Clr Calc Pharmacy 24.38 Normal [facility] Comment on above: Result Comment: PERF ORMED BY: [place] [address] PATHOLOGIST LIVE AMMUNITION INSPECTOR CHRISTIANE EVANS M.D. Performed By: #### P TT, CBC, CK, PT, HS TROP, CMP, BNP #### [facility] [address] GFR/1.73 sq M.predicted MDRD (S/P/Bld) [Vol rate/Area] 41.976 mL/min/{1.73_m2} Normal [facility] Comment on above: Performed By: #### P TT, CBC, CK, PT, HS TROP, CMP, BNP #### [address] Glucose [Mass/Vol] 114 mg/dL High 70-100 [facility] Comment on above: Result Comment: [facility] Glucose Reference Range is dependent on time and content of last meal. Glucose of more than 200 mg/dL in a nonstressed, ambulatory subject supports the diagnosis of Diabetes Mellitus. ADA recommended reference range Performed By: #### P TT, CBC, CK, PT, HS TROP, CMP, BNP #### [address] Potassium [Moles/Vol] 4.1 mmol/L Normal 3.5-5.1 [facility] Comment on above: Performed By: #### P TT, CBC, CK, PT, HS TROP, CMP, BNP #### [address] Sodium [Moles/Vol] 137 mmol/L Normal 136-145 [facility] Comment on above: Performed By: #### P TT, CBC, CK, PT, HS TROP, CMP, BNP #### [address] Urea nitrogen [Mass/Vol] 28 mg/dL High 7-25 [facility] Comment on above: Performed By: #### P TT, CBC, CK, PT, HS TROP, CMP, BNP #### [address] ECG 12 lead ECGon 03-11-2024 ECG 12 lead ECG [facility] [place] [address] [place] [address] Electrocardiograph Report Signed Patient: Milind Tate MR#: [id number] : 1935 Acct:[id number] Age/Sex: 88 / F ADM Date: 03/09/24 Loc: Room: [address] [place] [address] Type: ADM IN Attending Dr: Everett Lawson [...] QT has lengthened Confirmed by Aj Smith ([id number]) on 03/11/2024 8:22:46 PM Referred By: Electronically Signed By:Aj Smith Transcribed By: MUS Signed By Aj Smith MD 03/11/242021 Normal [facility] Bacteria [Presence] in Urine by AutomatedOrdered By: iPnky Nicole on 03-10-2024 Bacteria Auto Ql (U) 4+ [HPF] High None Seen [facility] Basic Metabolic Panelon 02-21 Anion gap [Moles/Vol] 13.4 mmol/L Normal 6.0-15.0 [facility] Comment on above: Performed By: #### B MP #### [facility] [address] [place] [address] [place] Calcium [Mass/Vol] 9.3 mg/dL Normal 8.6-10.3 [facility] Comment on above: Performed By: #### B MP #### [facility] [address] [place] [id number] [place] Chloride [Moles/Vol] 102 mmol/L Normal 98-107 [facility] Comment on above: Performed By: #### B MP #### [address] CO2 [Moles/Vol] 25.7 mmol/L Normal 21.0-31.0 [facility] Comment on above: Performed By: #### B MP #### [address] Creatinine [Mass/Vol] 1.13 mg/dL Normal 0.60-1.20 [facility] Comment on above: Performed By: #### B MP #### [place] [address] [place] Creatinine Clr Calc Pharmacy 26.97 Normal [facility] Comment on above: Result Comment: PERF ORMED BY: [place] [address] PATHOLOGIST LIVE AMMUNITION INSPECTOR CHRISTIANE EVANS M.D. Performed By: #### B MP #### [address] GFR/1.73 sq M.predicted MDRD (S/P/Bld) [Vol rate/Area] 47.381 mL/min/{1.73_m2} Normal [facility] Comment on above: Performed By: #### B MP #### [address] Glucose [Mass/Vol] 133 mg/dL High 70-100 [facility] Comment on above: Result Comment: [place] Glucose Reference Range is dependent on time and content of last meal. Glucose of more than 200 mg/dL in a nonstressed, ambulatory subject supports the diagnosis of Diabetes Mellitus. ADA recommended reference range Performed By: #### B MP #### [address] Potassium [Moles/Vol] 5.1 mmol/L Significan t change down 3.5-5.1 [facility] Comment on above: Performed By: #### B MP #### [address] Sodium [Moles/Vol] 136 mmol/L Normal 136-145 [facility] Comment on above: Performed By: #### B MP #### [address] Urea nitrogen [Mass/Vol] 23 mg/dL Normal 7-25 [facility] Comment on above: Performed By: #### B MP #### [address] Bilirubin Test strip Ql (U)O rdered By: Pinky Nicole on 03-10-2024 Bilirubin Ql (U) Negative Negative [facility] Color of Urine by AutoOrdere d By: Pinky Nicole on 03-10-2024 Color (U) Yellow Normal Yellow [facility] Comment on above: Order Comment: Name Collection Type:: Voided Performed By: #### P TT, CBC, CK, PT, HS TROP, CMP, BNP #### [place] [address] [place] Dipstick and Microscopicon 0 03-10-2024 Appearance (U) Cloudy Critically abnormal Clear [facility] Comment on above: Order Comment: Name Collection Type:: Voided Performed By: #### P TT, CBC, CK, PT, HS TROP, CMP, BNP #### [place] [address] [place] Bacteria,Urine 4+ High None Seen [facility] Comment on above: Order Comment: Name Collection Type:: Voided Performed By: #### P TT, CBC, CK, PT, HS TROP, CMP, BNP #### [place] [address] [place] Bilirubin,Urine Negative Normal Negative [facility] Comment on above: Order Comment: Name Collection Type:: Voided Performed By: #### P TT, CBC, CK, PT, HS TROP, CMP, BNP #### [address] Glucose Ql (U) Normal Normal Normal [facility] Comment on above: Order Comment: Name Collection Type:: Voided Performed By: #### P TT, CBC, CK, PT, HS TROP, CMP, BNP #### [place] [address] [place] Hyaline Casts,Urine 0-8 Normal 0-8 [facility] Comment on above: Order Comment: Name Collection Type:: Voided Result Comment: PERF ORMED BY: [place] [address] PATHOLOGIST LIVE AMMUNITION INSPECTOR CHRISTIANE EVANS M.D. Performed By: #### P TT, CBC, CK, PT, HS TROP, CMP, BNP #### [address] Ketones Ql (U) Negative Normal Negative [facility] Comment on above: Order Comment: Name Collection Type:: Voided Performed By: #### P TT, CBC, CK, PT, HS TROP, CMP, BNP #### [address] Leukocyte esterase Test strip Ql (U) 2+ High Negative [facility] Comment on above: Order Comment: Name Collection Type:: Voided Performed By: #### P TT, CBC, CK, PT, HS TROP, CMP, BNP #### [place] [address] [place] Nitrite,Urine Positive High Negative [facility] Comment on above: Order Comment: Name Collection Type:: Voided Performed By: #### P TT, CBC, CK, PT, HS TROP, CMP, BNP #### [place] [address] [place] Occult Blood,Urine Negative Normal Negative [facility] Comment on above: Order Comment: Name Collection Type:: Voided Result Comment: PERF ORMED BY: [place] [address] PATHOLOGIST LIVE AMMUNITION INSPECTOR CHRISTIANE EVANS M.D. Performed By: #### P TT, CBC, CK, PT, HS TROP, CMP, BNP #### [place] [address] [place] Protein,Urine Negative Normal Negative [facility] Comment on above: Order Comment: Name Collection Type:: Voided Performed By: #### P TT, CBC, CK, PT, HS TROP, CMP, BNP #### [facility] [address] RBC,Urine 3-4 Normal 0-4 [facility] Comment on above: Order Comment: Name Collection Type:: Voided Performed By: #### P TT, CBC, CK, PT, HS TROP, CMP, BNP #### [address] Specificy [place],Urine 1.031 High 1.001-1.03 0 [facility] Comment on above: Order Comment: Name Collection Type:: Voided Performed By: #### P TT, CBC, CK, PT, HS TROP, CMP, BNP #### [address] Squamous Epithelial Cell,Urine 1-2 Normal 0-2 [facility] Comment on above: Order Comment: Name Collection Type:: Voided Performed By: #### P TT, CBC, CK, PT, HS TROP, CMP, BNP #### [address] Urobilinogen,Urine Normal Normal Normal [facility] Comment on above: Order Comment: Name Collection Type:: Voided Performed By: #### P TT, CBC, CK, PT, HS TROP, CMP, BNP #### [address] WBC,Urine 5-9 High 0-4 [facility] [facility] Comment on above: Order Comment: Name Collection Type:: Voided Performed By: #### P TT, CBC, CK, PT, HS TROP, CMP, BNP #### [address] ECG 12 lead ECGon 03-10-2024 ECG 12 lead ECG [facility] [address] [place] [address] [place] [address] Electrocardiograph Report Signed Patient: Milind Tate MR#: [id number] : 1935 Acct:[id number] Age/Sex: 88 / F ADM Date: 03/09/24 Loc: Room: 4U2909-1 Type: ADM IN Attending Dr: Everett Lawson [...] no longer present Confirmed by Aj Smith ([id number]) on 03/11/2024 8:22:43 PM Referred By: Electronically Signed By:Aj Smith Transcribed By: MUS Signed By Aj Smith MD 03/11/242021 Normal [facility] ECH echo transthoracicon [facility] echo transthoracic [facility] [address] [place] [address] [place] [address] Echocardiogram Signed Patient: Milind Tate MR#: [id number] : 1935 Acct:[id number] Age/Sex: 88 / F ADM Date: 03/09/24 Loc: Room: [address] [place] [address] Type: ADM IN Attending Dr: Everett Lawson DO Ordering Provider: Everett Lawson DO Date of Service: 03/10/24 ECH/[facility] echo transthoracic: recurrent Takotsubo CMP Copies to: [...] 1134 Signed By: Prabha Lipscomb MD 03/10/24 1835 Normal [facility] Erythrocytes [#/area] in Uri ne sediment by Automated countOrdered By: Pinky Nicole on 03-10-2024 RBC Auto (Urine sed) [#/Area] 3-4 [HPF] 0-4 [facility] Ketones Auto test strip (U) [Mass/Vol]Ordered By: Pinky Nicole on 03-10-2024 Ketones (U) [Mass/Vol] Negative Negative [facility] Laboratory - UrinalysisOrder ed By: Pinky Nicole on 03-10-2024 Hyaline casts LM Ql (Urine sed) 0-8 [LPF] 0-8 [facility] Leukocytes [#/area] in Urine sediment by Automated countOrdered By: Pinky Nicole on 03-10-2024 WBC Auto (Urine sed) [#/Area] 5-9 [HPF] High 0-4 [facility] Nitrite Test strip Ql (U)Ord ered By: Pinky Nicole on 03-10-2024 Nitrite Ql (U) Positive High Negative [facility] Protein Auto test strip (U) [Mass/Vol]Ordered By: Pinky Nicole on 03-10-2024 Protein (U) [Mass/Vol] Negative Negative [facility] Specific gravity Auto test s trip (U) [Rel density]Ordered By: Pinky Nicole on 03-10-2024 Specific gravity (U) [Rel density] 1.031 High 1.001-1.03 0 [facility] Squamous epithelial cells de tection in urine sediment by light microscopyOrdered By: Pinky Nicole on 03-10-2024 Epithelial cells.squamous LM Ql (Urine sed) 1-2 [HPF] 0-2 [facility] Troponin I High Sensitivityo n 03-10-2024 Troponin I High Sensitivity 7199.8 pg/mL Off scale high 0.0-15.0 [facility] Comment on above: Order Comment: DRAW AT 0157 Result Comment: Resu lts called at 0219 on 03/10/24 PERFORMED BY: [place] [address] PATHOLOGIST LIVE AMMUNITION INSPECTOR CHRISTIANE EVANS M.D. Performed By: #### P TT, CBC, CK, PT, HS TROP, CMP, BNP #### [address] Troponin I High Sensitivity 7730.0 pg/mL Off scale high 0.0-15.0 [facility] Comment on above: Result Comment: Crit ical Result : Called to and read back by: MELANIE GOMEZ at: 03/10/2024 06:06:38 by:[id number] PERFORMED BY: [place] [address] PATHOLOGIST LIVE AMMUNITION INSPECTOR CHRISTIANE EVANS M.D. Performed By: #### P TT, CBC, CK, PT, HS TROP, CMP, BNP #### [address] Troponin I High Sensitivity 8379.9 pg/mL Off scale high 0.0-15.0 [facility] Comment on above: Order Comment: DRAW AT 0648 PER SAVANAH LITTLE Result Comment: Crit ical Result : Called to and read back by: MIGUEL JIMENEZ at: 03/10/2024 08:01:08 by:MILA PERFORMED BY: [place] [address] PATHOLOGIST LIVE AMMUNITION INSPECTOR CHRISTIANE EVANS M.D. Performed By: #### P TT, CBC, CK, PT, HS TROP, CMP, BNP #### [address] [place] [address] [facility] Troponin I.cardiac [Mass/vol ume] in Serum or Plasma by Detection limit <= 0.01 ng/Ordered By: Everett Lawson on 03-10-2024 Troponin I.cardiac DL <= 0.01 ng/mL [Mass/Vol] 8379.9 pg/mL High 0.0-15.0 [facility] Comment on above: Critical Result : Ca lled to and read back by: MIGUEL JIMENEZ at: 03/10/2024 08:01:08 by:MILA Urine Cultureon 03-10-2024 Bacteria identified Cx Nom (U) ORGANISM: Escherichia coli (O:ESCCOL) Vantage Count >100,000 ORGANISM: Escherichia coli (O:ESCCOL) Vantage Count <10,000 Aerobic SAURABH Charge (NMIC56) SUSCEPTIBILITY [...] RESISTANT TO ALL B-LACTAM DRUGS. PERFORMED BY: [place] [address] PATHOLOGIST LIVE AMMUNITION INSPECTOR CHRISTIANE EVANS M.D. Normal [facility] Comment on above: Performed By: #### P TT, CBC, CK, PT, HS TROP, CMP, BNP #### [facility] [address] [place] [address] Urine clarity by refractomet ry automatedOrdered By: Pinky Nicole on 03-10-2024 Clarity Refractometry automated (U) Cloudy Abnormal Clear [facility] Urine culture routineOrdered By: Pinky Nicole on 03-10-2024 Bacteria identified Cx Nom (U) Escherichia coli#2 Abnormal [facility] Urine glucose measurement by automated test strip (mass/volume)Ordered By: Pinky Nicole on 03-10-2024 Glucose Auto test strip (U) [Mass/Vol] Normal mg/dL Normal [facility] Urine hemoglobin detection b y automated test stripOrdered By: Pinky Nicole on 03-10-2024 Hemoglobin Auto test strip Ql (U) Negative Negative [facility] Urine leukocyte esterase det ection by automated test stripOrdered By: Pinky Nicole on 03-10-2024 Leukocyte esterase Auto test strip Ql (U) 2+ High Negative [facility] Urine pH measurement by auto mated test stripOrdered By: Pinky Nicole on 03-10-2024 pH (U) 5.5 [pH] Normal 5.0-9.0 [facility] Comment on above: Order Comment: Name Collection Type:: Voided Performed By: #### P TT, CBC, CK, PT, HS TROP, CMP, BNP #### [facility] [address] [id number] [facility] Urobilinogen Auto test strip (U) [Mass/Vol]Ordered By: Pinky Nicole on 03-10-2024 Urobilinogen (U) [Mass/Vol] Normal mg/dL Normal [facility] Activated partial thrombopla stin time (aPTT) in platelet poor plasma by coagulation aOrdered By: Aravind Jackson on 03-09-2024 aPTT Coag (PPP) [Time] 27.9 s 25.1-36.5 [facility] Comment on above: A hematocrit value g reater than 55% may lead to inaccurate results in coagulation testing. Patients having hematocrit values >55% require a special collection tube for coagulation studies. Please contact the laboratory at [phone] for redraw instructions. Alanine aminotransferase [En zymatic activity/volume] in Serum or PlasmaOrdered By: Aravind Jackson on 03-09-2024 ALT [Catalytic activity/Vol] 12 U/L Normal 7-52 [facility] Comment on above: Performed By: #### P TT, CBC, CK, PT, HS TROP, CMP, BNP #### [facility] [address] [id number] [place] Albumin [Mass/volume] in Ser um or Plasma by Bromocresol green (BCG) dye binding methoOrdered By: Aravind Jackson on 03-09-2024 Albumin BCG dye [Mass/Vol] 4.0 g/dL 3.5-5.7 [facility] Alkaline phosphatase [Enzyma tic activity/volume] in Serum or PlasmaOrdered By: Aravind Jackson on 03-09-2024 ALP [Catalytic activity/Vol] 71 U/L Normal 34-104 [facility] Comment on above: Performed By: #### P TT, CBC, CK, PT, HS TROP, CMP, BNP #### [address] Aspartate aminotransferase [ Enzymatic activity/volume] in Serum or PlasmaOrdered By: Aravind Jackson on 03-09-2024 AST [Catalytic activity/Vol] 24 U/L Normal 13-39 [facility] Comment on above: Performed By: #### P TT, CBC, CK, PT, HS TROP, CMP, BNP #### [address] Automated basophil %Ordered By: Aravind Jackson on 03-09-2024 Basophils/100 WBC (Bld) 0.9 % Normal . [facility] Comment on above: Performed By: #### P TT, CBC, CK, PT, HS TROP, CMP, BNP #### [address] Automated basophil countOrde red By: Aravind Jackson on 03-09-2024 Basophils (Bld) [#/Vol] 0.1 10*3/uL Normal 0.0-0.2 [facility] Comment on above: Result Comment: PERF ORMED BY: [place] [address] PATHOLOGIST LIVE AMMUNITION INSPECTOR CHRISTIANE EVANS M.D. Performed By: #### P TT, CBC, CK, PT, HS TROP, CMP, BNP #### [address] Automated blood monocyte cou ntOrdered By: Aravind Jackson on 03-09-2024 Monocytes (Bld) [#/Vol] 0.9 10*3/uL High 0.0-0.8 [facility] Comment on above: Performed By: #### P TT, CBC, CK, PT, HS TROP, CMP, BNP #### [address] Automated eosinophil %Ordere d By: Aravind Jackson on 03-09-2024 Eosinophils/100 WBC (Bld) 1.2 % Normal . [facility] Comment on above: Performed By: #### P TT, CBC, CK, PT, HS TROP, CMP, BNP #### [address] Automated eosinophil countOr dered By: Aravind Jackson on 03-09-2024 Eosinophils (Bld) [#/Vol] 0.1 10*3/uL Normal 0.0-0.45 [facility] Comment on above: Performed By: #### P TT, CBC, CK, PT, HS TROP, CMP, BNP #### [address] Automated monocyte %Ordered By: Aravind Jackson on 03-09-2024 Monocytes/100 WBC (Bld) 7.5 % Normal . [facility] Comment on above: Performed By: #### P TT, CBC, CK, PT, HS TROP, CMP, BNP #### [address] Automated neutrophil %Ordere d By: Aravind Jackson on 03-09-2024 Neutrophils/100 WBC (Bld) 54.7 % Normal . [facility] Comment on above: Performed By: #### P TT, CBC, CK, PT, HS TROP, CMP, BNP #### [address] BNP ser/plasOrdered By: Alessandro Jackson on 03-09-2024 Natriuretic peptide B (Bld) [Mass/Vol] 57.0 pg/mL Normal 5-100 [facility] Comment on above: Result Comment: PERF ORMED BY: [place] [address] PATHOLOGIST LIVE AMMUNITION INSPECTOR CHRISTIANE EVANS M.D. Performed By: #### P TT, CBC, CK, PT, HS TROP, CMP, BNP #### [address] Bilirubin.total [Mass/volume ] in Serum or PlasmaOrdered By: Aravind Jackson on 03-09-2024 Bilirubin [Mass/Vol] 0.4 mg/dL Normal 0.3-1.0 [facility] Comment on above: Performed By: #### P TT, CBC, CK, PT, HS TROP, CMP, BNP #### [address] Calcium [Mass/volume] in Ser um or PlasmaOrdered By: Aravind Jackson on 03-09-2024 Calcium [Mass/Vol] 9.5 mg/dL Normal 8.6-10.3 [facility] Comment on above: Performed By: #### P TT, CBC, CK, PT, HS TROP, CMP, BNP #### [address] Carbon dioxide, total [Moles /volume] in Serum or PlasmaOrdered By: Aravind Jackson on 03-09-2024 CO2 [Moles/Vol] 20.9 mmol/L Low 21.0-31.0 [facility] Comment on above: Performed By: #### P TT, CBC, CK, PT, HS TROP, CMP, BNP #### [address] Chloride [Moles/volume] in [place] or PlasmaOrdered By: Aravind Jackson on 03-09-2024 Chloride [Moles/Vol] 105 mmol/L Normal 98-107 [facility] Comment on above: Performed By: #### P TT, CBC, CK, PT, HS TROP, CMP, BNP #### [address] Complete Blood Count Auto Di ffon 03-09-2024 Mean Corpuscular HGB Conc 33.4 g/dL Normal 32.0-35.0 [facility] Comment on above: Performed By: #### P TT, CBC, CK, PT, HS TROP, CMP, BNP #### [place] [address] [place] Monocytes/100 WBC (Bld) 19.33 % Normal 0.00-20.00 [facility] Comment on above: Performed By: #### P TT, CBC, CK, PT, HS TROP, CMP, BNP #### [place] [address] [place] NRBC% 0.1 /100{WBC} Normal 0-0.5 [facility] Comment on above: Performed By: #### P TT, CBC, CK, PT, HS TROP, CMP, BNP #### [facility] [address] Comprehensive Metabolic Pane reynaldo 03-09-2024 Albumin [Mass/Vol] 4.0 g/dL Normal 3.5-5.7 [facility] Comment on above: Performed By: #### P TT, CBC, CK, PT, HS TROP, CMP, BNP #### [address] Creatinine Clr Calc Pharmacy 27.07 Normal [facility] Comment on above: Result Comment: PERF ORMED BY: [place] [address] PATHOLOGIST LIVE AMMUNITION INSPECTOR CHRISTIANE EVANS M.D. Performed By: #### P TT, CBC, CK, PT, HS TROP, CMP, BNP #### [address] GFR/1.73 sq M.predicted MDRD (S/P/Bld) [Vol rate/Area] 41.976 mL/min/{1.73_m2} Normal [facility] Comment on above: Performed By: #### P TT, CBC, CK, PT, HS TROP, CMP, BNP #### [address] Creatine kinase [Enzymatic a ctivity/volume] in Serum or PlasmaOrdered By: Aravind Jackson on 03-09-2024 CK [Catalytic activity/Vol] 71 U/L Normal 30-223 [facility] Comment on above: Performed By: #### P TT, CBC, CK, PT, HS TROP, CMP, BNP #### [address] Creatinine [Mass/volume] in Serum or PlasmaOrdered By: Aravind Jackson on 03-09-2024 Creatinine [Mass/Vol] 1.25 mg/dL High 0.60-1.20 [facility] Comment on above: Performed By: #### P TT, CBC, CK, PT, HS TROP, CMP, BNP #### [address] ECG 12 lead ECGon 03-09-2024 ECG 12 lead ECG [facility] [place] [address] Electrocardiograph Report Signed Patient: Milind Tate MR#: [id number] : 1935 Acct:[id number] Age/Sex: 88 / F ADM Date: 03/09/24 Loc: Room: [address] [place] [address] Type: ADM IN Attending Dr: Everett Lawson [...] infarct , age undetermined Prolonged QT ACUTE [place] / STEMI Consider right ventricular involvement in acute inferior infarct Abnormal ECG No previous ECGs available Confirmed by ARAVIND JACKSON MD ([id number]) on 03/11/2024 5:25:10 AM Referred By: Electronically Signed By:ARAVIND JACKSON MD Transcribed By: MUS Signed By Aravind Jackson Jr, MD 0525 Normal [facility] ECG 12 lead ECG [facility] [place] [address] Electrocardiograph Report Signed Patient: Milind Tate MR#: [id number] : 1935 Acct:[id number] Age/Sex: 88 / F ADM Date: 03/09/24 Loc: Room: [address] [place] [address] Type: DIS IN Attending Dr: Everett Lawson [...] changes have occurred Confirmed by Aj Smith ([id number]) on 03/20/2024 10:06:02 PM Referred By: Electronically Signed By:Aj Smith Transcribed By: MUS Signed By Aj Smith MD 03/20/242205 Normal [facility] Erythrocyte distribution wid th [Ratio] by Automated countOrdered By: Aravind Jackson on 03-09-2024 Erythrocyte distribution width (RBC) [Ratio] 13.6 % Normal 11.9-15.3 [facility] Comment on above: Performed By: #### P TT, CBC, CK, PT, HS TROP, CMP, BNP #### [facility] [address] Erythrocytes [#/volume] in B lood by Automated countOrdered By: Aravind Jackson on 03-09-2024 RBC (Bld) [#/Vol] 4.34 10*6/uL Normal 3.60-5.00 [facility] Comment on above: Performed By: #### P TT, CBC, CK, PT, HS TROP, CMP, BNP #### [facility] [address] Glucose [Mass/volume] in Ser um or PlasmaOrdered By: Aravind Jackson on 03-09-2024 Glucose [Mass/Vol] 126 mg/dL High 70-100 [facility] Comment on above: ADA recommended refe rence rangeRandom Glucose Reference Range is dependent on time and content of last meal. Glucose of more than 200 mg/dL in a nonstressed, ambulatory subject supports the diagnosis of Diabetes Mellitus. Result Comment: [place] om Glucose Reference Range is dependent on time and content of last meal. Glucose of more than 200 mg/dL in a nonstressed, ambulatory subject supports the diagnosis of Diabetes Mellitus. ADA recommended reference range Performed By: #### P TT, CBC, CK, PT, HS TROP, CMP, BNP #### [facility] [address] Hematocrit [Volume Fraction] of Blood by Automated countOrdered By: Aravind Jackson on 03-09-2024 Hematocrit (Bld) [Volume fraction] 39.9 % Normal 34.0-46.4 [facility] Comment on above: Performed By: #### P TT, CBC, CK, PT, HS TROP, CMP, BNP #### [address] Hemoglobin [Mass/volume] in BloodOrdered By: Aravind Jackson on 03-09-2024 Hemoglobin (Bld) [Mass/Vol] 13.3 g/dL Normal 11.8-15.4 [facility] Comment on above: Performed By: #### P TT, CBC, CK, PT, HS TROP, CMP, BNP #### [address] INR in Platelet poor plasma by Coagulation assayOrdered By: Aravind Jackson on 03-09-2024 INR Coag (PPP) [Relative time] 0.9 {INR} Normal [facility] Comment on above: INR Therapeutic Rang e [...] CK, PT, HS TROP, CMP, BNP #### [address] Leukocytes [#/volume] correc jey for nucleated erythrocytes in Blood by Automated counOrdered By: Aravind Jackson on 03-09-2024 WBC corrected for nucl RBC Auto (Bld) [#/Vol] 11.8 10*3/uL High 3.8-11.6 [facility] Leukocytes [#/volume] in Blo od by Automated countOrdered By: Aravind Jackson on 03-09-2024 WBC (Bld) [#/Vol] 11.8 10*3/uL High 3.8-11.6 [facility] Comment on above: Performed By: #### P TT, CBC, CK, PT, HS TROP, CMP, BNP #### [address] Lymphocytes [#/volume] in Bl ood by Automated countOrdered By: Aravind Jackson on 03-09-2024 Lymphocytes (Bld) [#/Vol] 4.2 10*3/uL Normal 1.00-4.8 [facility] Comment on above: Performed By: #### P TT, CBC, CK, PT, HS TROP, CMP, BNP #### [address] Lymphocytes/100 leukocytes i n Blood by Automated countOrdered By: Aravind Jackson on 03-09-2024 Lymphocytes/100 WBC (Bld) 35.7 % Normal . [facility] Comment on above: Performed By: #### P TT, CBC, CK, PT, HS TROP, CMP, BNP #### [address] MCH [Entitic mass] by Automa jey countOrdered By: Aravind Jakcson on 03-09-2024 MCH (RBC) [Entitic mass] 30.7 pg Normal 24.7-34.3 [facility] Comment on above: Performed By: #### P TT, CBC, CK, PT, HS TROP, CMP, BNP #### [address] MCHC Auto (RBC) [Mass/Vol]Or dered By: Aravind Jackson on 03-09-2024 MCHC (RBC) [Mass/Vol] 33.4 g/dL 32.0-35.0 [facility] MCV [Entitic volume] by Auto mated countOrdered By: Aravind Jackson on 03-09-2024 MCV (RBC) [Entitic vol] 92.0 fL Normal 80-100 [facility] Comment on above: Performed By: #### P TT, CBC, CK, PT, HS TROP, CMP, BNP #### [facility] [address] Monocyte distribution width [Entitic volume] in Blood by AutomatedOrdered By: Aravind Jackson on 03-09-2024 Monocyte distribution width Auto (Bld) [Entitic vol] 19.33 % 0.00-20.00 [facility] Neutrophils [#/volume] in Bl ood by Automated countOrdered By: Aravind Jackson on 03-09-2024 Neutrophils (Bld) [#/Vol] 6.5 10*3/uL Normal 1.8-7.7 [facility] Comment on above: Performed By: #### P TT, CBC, CK, PT, HS TROP, CMP, BNP #### [facility] [address] No Panel InformationOrdered By: Aravind Jackson on 03-09-2024 Estimated GFR (CKD-EPI) 41.976 mL/Min [facility] Creatinine Clearance (Chem 27.07 [facility] Nucleated erythrocytes [Pres ence] in Blood by Automated countOrdered By: Aravind Jackson on 03-09-2024 Nucleated RBC Auto Ql (Bld) 0.1 /100{WBC} 0-0.5 [facility] Partial Thromboplastin Timeo n 03-09-2024 aPTT Coag (Bld) [Time] 27.9 s Normal 25.1-36.5 [facility] Comment on above: Result Comment: A he matocrit value greater than 55% may lead to inaccurate results in coagulation testing. Patients having hematocrit values >55% require a special collection tube for coagulation studies. Please contact the laboratory at [phone] for redraw instructions. PERFORMED BY: [address] [place] [address] PATHOLOGIST LIVE AMMUNITION INSPECTOR CHRISTIANE EAVNS M.D. Performed By: #### P TT, CBC, CK, PT, HS TROP, CMP, BNP #### [address] Platelet mean volume [Entiti c volume] in Blood by Automated countOrdered By: Aravind Jackson on 03-09-2024 Platelet mean volume (Bld) [Entitic vol] 7.0 fL Normal 6.3-10.7 [facility] Comment on above: Performed By: #### P TT, CBC, CK, PT, HS TROP, CMP, BNP #### [place] [address] [place] Platelets [#/volume] in Bloo d by Automated countOrdered By: Aravind Jackson on 03-09-2024 Platelets (Bld) [#/Vol] 248 10*3/uL Normal 150-450 [facility] Comment on above: Performed By: #### P TT, CBC, CK, PT, HS TROP, CMP, BNP #### [address] Potassium [Moles/volume] in Serum or PlasmaOrdered By: Aravind Jackson on 03-09-2024 Potassium [Moles/Vol] 3.6 mmol/L Normal 3.5-5.1 [facility] Comment on above: Performed By: #### P TT, CBC, CK, PT, HS TROP, CMP, BNP #### [place] [address] [place] Protein [Mass/volume] in Ser um or PlasmaOrdered By: Aravind Jackson on 03-09-2024 Protein [Mass/Vol] 6.5 g/dL Normal 6.4-8.9 [facility] Comment on above: Performed By: #### P TT, CBC, CK, PT, HS TROP, CMP, BNP #### [address] Prothrombin time (PT)Ordered By: Aravind Jackson on 03-09-2024 PT Coag (PPP) [Time] 10.9 s Normal 9.0-12.9 [facility] Comment on above: A hematocrit value g reater than 55% may lead to inaccurate results in coagulation testing. Patients having hematocrit values >55% require a special collection tube for coagulation studies. Please contact the laboratory at [phone] for redraw instructions. Result Comment: A he matocrit value greater than 55% may lead to inaccurate results in coagulation testing. Patients having hematocrit values >55% require a special collection tube for coagulation studies. Please contact the laboratory at [phone] for redraw instructions. Performed By: #### P TT, CBC, CK, PT, HS TROP, CMP, BNP #### [facility] [address] [place] [address] Serum globulin measurement b y calculation (mass/volume)Ordered By: Aravind Jackson on 03-09-2024 Globulin (S) [Mass/Vol] 2.5 g/dL [facility] Comment on above: Performed By: #### P TT, CBC, CK, PT, HS TROP, CMP, BNP #### [facility] [address] [place] [address] Serum or plasma albumin/glob ulin mass ratioOrdered By: Aravind Jackson on 03-09-2024 Albumin/Globulin [Mass ratio] 1.6 {ratio} [facility] Comment on above: Performed By: #### P TT, CBC, CK, PT, HS TROP, CMP, BNP #### [address] Serum or plasma anion gap de terminationOrdered By: Aravind Jackson on 03-09-2024 Anion gap [Moles/Vol] 13.7 mmol/L Normal 6.0-15.0 [facility] Comment on above: Performed By: #### P TT, CBC, CK, PT, HS TROP, CMP, BNP #### [address] Sodium [Moles/volume] in Ser um or PlasmaOrdered By: Aravind Jackson on 03-09-2024 Sodium [Moles/Vol] 136 mmol/L Normal 136-145 [facility] Comment on above: Performed By: #### P TT, CBC, CK, PT, HS TROP, CMP, BNP #### [address] Troponin I High Sensitivityo n 03-09-2024 Troponin I High Sensitivity 1446.7 pg/mL Off scale high 0.0-15.0 [facility] Comment on above: Result Comment: Crit ical Result : Called to and read back by: ADOLFO NUGENT at: 03/09/2024 22:08:25 by:GOYO PERFORMED BY: [place] [address] PATHOLOGIST LIVE AMMUNITION INSPECTOR CHRISTIANE EVANS M.D. Performed By: #### P TT, CBC, CK, PT, HS TROP, CMP, BNP #### [address] Troponin I High Sensitivity 6642.4 pg/mL Off scale high 0.0-15.0 [facility] Comment on above: Result Comment: Crit ical Result : Called to and read back by: MELANIE HIGHTOWER at: 03/09/2024 23:44:11 by:[id number] PERFORMED BY: [place] [address] PATHOLOGIST LIVE AMMUNITION INSPECTOR CHRISTIANE EVANS M.D. Performed By: #### P TT, CBC, CK, PT, HS TROP, CMP, BNP #### [address] Troponin I.cardiac [Mass/vol ume] in Serum or Plasma by Detection limit <= 0.01 ng/Ordered By: Aravind Jackson on 03-09-2024 Troponin I.cardiac DL <= 0.01 ng/mL [Mass/Vol] 1446.7 pg/mL 0.0-15.0 [facility] Comment on above: Critical Result : Ca lled to and read back by: ADOLFO NUGENT at: 03/09/2024 22:08:25 by:GOYO Urea nitrogen [Mass/volume] in Serum or PlasmaOrdered By: Aravind Jackson on 03-09-2024 Urea nitrogen [Mass/Vol] 25 mg/dL Normal 7-25 [facility] Comment on above: Performed By: #### P TT, CBC, CK, PT, HS TROP, CMP, BNP #### [facility] [address] [place] [id number] [facility] XR chest 1V portableon 03-09 XR chest 1V portable [facility] [address] [place] [id number] XRay Report Signed Patient: Milind Tate MR#: [id number] : 1935 Acct:[id number] Age/Sex: 88 / F ADM Date: 03/09/24 Loc: Room: Type: [facility] Attending Dr: Everett Lawson DO Copies to: [...] Frederic Granger M.D.03/09/2024 9:26 PM Dictation Location: [place] [address] Transcribed By: [facility] 03/09/242125 Dictated By: Frederic Granger II, MD 03/09/242125 Signed By: 03/09/242125 Normal [facility] Urine Cultureon 08-11-2023 Bacteria identified Cx Nom (U) [place] Other Bacteria identified Cx Nom (U) No Growth 2 Days PERFORMED BY: [place] [id number] PATHOLOGIST LIVE AMMUNITION INSPECTOR CHRISTIANE EVANS M.D. Normal [facility] Comment on above: Performed By: #### P TT, CBC, CK, PT, HS TROP, CMP, BNP #### [facility] [address] UPPER EXTREMITY INJECTION: L extensor compartment 1on 07-05-2023 Radiology Study observation (narrative) [facility] Alissa Downing LPN 07/05/2023 1:09 PM UPPER [...] fashion. The patient was prepped with alcohol. [facility] XR WRIST LEFT 3 VIEWSon 03-24 [...] joint effusion or soft tissue edema. Normal [facility] UA RANDOMon 01-28-2023 Bilirubin Ql (U) Negative Normal NEGATIVE [facility] Comment on above: Performed By: #### U A #### [facility] [address] [place] [address] Dr. Jaja Meadows Clarity (U) CLEAR Normal CLEAR [facility] Comment on above: Performed By: #### U A #### [facility] [address] [place] [address] Dr. Jaja Meadows Color (U) LT. YELLOW Normal YELLOW [facility] Comment on above: Performed By: #### U A #### [facility] [address] [place] [address] Dr. Jaja Meadows Glucose Ql (U) Negative Normal NEGATIVE [facility] Comment on above: Performed By: #### U A #### [facility] [address] [place] [address] Dr. Jaja Meadows Hemoglobin Ql (U) TRACE-INTACT Abnormal NEGATIVE [facility] Comment on above: Performed By: #### U A #### [facility] [address] [place] [address] Dr. Jaja Meadows Ketones Ql (U) Negative Normal NEGATIVE [facility] [place] Comment on above: Performed By: #### U A #### [facility] [address] [place] [address] Dr. Jaja Meadows LEUKOCYTES SMALL Abnormal NEGATIVE [facility] Comment on above: Performed By: #### U A #### [facility] [address] [place] [address] Dr. Jaja Meadows Nitrite Ql (U) Positive Abnormal NEGATIVE [facility] [place] Comment on above: Performed By: #### U A #### [facility] [address] [place] [address] Dr. Jaja Meadows pH (U) 6.0 [pH] Normal 5-9 [facility] Comment on above: Performed By: #### U A #### [facility] [address] [place] [address] Dr. Jaja Meadows SPEC GRAVITY <=1.005 Abnormal 1.005-<=1. 025 [facility] Comment on above: Performed By: #### U A #### [facility] [address] [place] [address] [address] Jaja Meadows UA PROTEIN Negative Normal NEGATIVE/ TRACE [facility] Comment on above: Performed By: #### U A #### [facility] [id number] Jaja Meadows Urobilinogen Qn (U) 0.2 {Son'U}/dL Normal 0.2 - 1. 0 [facility] Comment on above: Performed By: #### U A #### [facility] [address] [place] [address] [address] Jaja Meadows Office Visit (Cardiology)on 12-28-2022 Follow-up visit Diagnoses/Problems Assessed Takotsubo syndrome (429.83) (I51.81) Body mass index (BMI) of 24.0 to 24.9 in adult (V85.1) (Z68.24) Never a smoker Orders SocHx: Never a smoker Tobacco Use Screening; Status:Complete; Done: 28Dec2022 Takotsubo syndrome Start: Aspirin 81 MG Oral [...] Recorded: 28Dec2022 03:12PM Heart Rate58, R Radial Unoupxqf386, LUE, Sitting Sbxcnubqn00, LUE, Sitting Height5 ft 1 in Etykrl248 lb BMI Awrfxoeoby34.56 kg/m2 BSA Calculated1.57 Tobacco Useb) No PHQ-2 [...] Dec 28 2022 6:36PM EST (Author) Normal [facility] PHQ-2 VITALSon 12-28-2022 Fall risk assessment a) No falls within the last year -[facility] DO Work Phone: Tobacco use status CPHS b) No -[facility] DO Work Phone: PHQ-2 VITALS [facility] Work [...] Trimethoprim/Sulfamethoxa zole <=20 S F Normal [facility] Comment on above: Performed By: #### P TT, PT #### [facility] [address] [place] [address] [address] Jaja Meadows CBC AUTO DIFFon 10-28-2022 BASO # 0.0 103/ul Normal 0.0-0.1 [facility] Comment on above: Performed By: #### P TT, PT #### [facility] [address] [place] [address] [address] Jaja Meadows Basophils/100 WBC (Bld) 0.6 % Normal 0.2-2.0 [facility] Comment on above: Performed By: #### P TT, PT #### [facility] [address] [place] [address] Dr. Jaja Meadows EO # 0.2 103/ul Normal 0.0-0.7 [facility] Comment on above: Performed By: #### P TT, PT #### [facility] [address] [place] [address] Dr. Jaja Meadows Eosinophils/100 WBC (Bld) 2.9 % Normal 0.9-7.0 [facility] Comment on above: Performed By: #### P TT, PT #### [facility] [address] [place] [address] Dr. Jaja Meadows Erythrocyte distribution width (RBC) [Ratio] 12.4 % Normal 11.0-15.0 [facility] Comment on above: Performed By: #### P TT, PT #### [facility] [address] [place] [address] Dr. Jaja Meadows Hematocrit (Bld) [Volume fraction] 39.6 % Normal 36.0-48.0 [facility] Comment on above: Performed By: #### P TT, PT #### [facility] [address] [place] [address] Dr. Jaja Meadows Hemoglobin (Bld) [Mass/Vol] 12.7 g/dL Normal 12.0-16.0 [facility] Comment on above: Performed By: #### P TT, PT #### [facility] [address] [place] [address] Dr. Jaja Meadows IG # 0.03 10e3/ul Normal 0.00-0.03 [facility] Comment on above: Performed By: #### P TT, PT #### [facility] [address] [place] [address] Dr. Jaja Meadows IG % 0.5 % Normal 0.0-0.5 [facility] Comment on above: Performed By: #### P TT, PT #### [facility] [address] [place] [address] Dr. Jaja Meadows LYMPH # 1.9 103/ul Normal 1.2-3.8 [facility] Comment on above: Performed By: #### P TT, PT #### [facility] [address] [place] [address] Dr. Jaja Meadows Lymphocytes/100 WBC (Bld) 30.3 % Normal 20.5-60.0 [facility] Comment on above: Performed By: #### P TT, PT #### [facility] [address] [place] [address] Dr. Jaja Meadows MANUAL DIFF REQ NO Normal [facility] Comment on above: Performed By: #### P TT, PT #### [facility] [address] [place] [address] Dr. Jaja Meadows MCH (RBC) [Entitic mass] 31.5 pg Normal 26.7-34.0 [facility] Comment on above: Performed By: #### P TT, PT #### [facility] [address] [place] [address] Dr. Jaja Meadows MCHC (RBC) [Mass/Vol] 32.1 g/dL Normal 29.9-35.2 [facility] Comment on above: Performed By: #### P TT, PT #### [facility] [address] [place] [address] Dr. Jaja Meadows MCV (RBC) [Entitic vol] 98.3 fL Normal 81.0-99.0 [facility] Comment on above: Performed By: #### P TT, PT #### [facility] [address] [place] [address] Dr. Jaja Meadows MONO # 0.6 103/ul Normal 0.3-0.8 [facility] Comment on above: Performed By: #### P TT, PT #### [facility] [address] [place] [address] Dr. Jaja Meadows Monocytes/100 WBC (Bld) 9.7 % Normal 1.7-12.0 [facility] Comment on above: Performed By: #### P TT, PT #### [facility] [address] [place] [address] Dr. Jaja Meadows NEUT # 3.5 103/ul Normal 1.4-6.5 [facility] Comment on above: Performed By: #### P TT, PT #### [facility] [address] [place] [address] Dr. Jaja Meadows Neutrophils/100 WBC (Bld) 56.0 % Normal 43.0-75.0 [facility] Comment on above: Performed By: #### P TT, PT #### [facility] [address] [place] [address] Dr. Jaja Meadows Platelet mean volume (Bld) [Entitic vol] 9.6 fL Normal 9.5-13.5 [facility] Comment on above: Performed By: #### P TT, PT #### [facility] [address] [place] [address] Dr. Jaja Meadows PLT 155 103/ul Normal 150-450 [facility] Comment on above: Performed By: #### P TT, PT #### [facility] [address] [place] [address] Dr. Jaja Meadows RBC 4.03 106/ul Critically low 4.20-5.40 [facility] Comment on above: Performed By: #### P TT, PT #### [facility] [address] [place] [address] Dr. Jaja Meadows WBC 6.3 103/ul Normal 4.0-11.0 [facility] Comment on above: Performed By: #### P TT, PT #### [facility] [address] [place] [address] Dr. Jaja Meadows Covid-19 PCR ([facility])on SARS-CoV-2 (COVID-19) RNA GASTON+probe Ql (Unsp spec) Not detected Normal NOT DETECTED [facility] Comment on above: Result Comment: When [...] for this test is supported by the [place] of Health and Human Service's declaration that [...] Performed By: #### P TT, PT #### [facility] [address] [place] [address] Dr. Jaja Meadows PROF CHEM 8 (BAS METB)on Anion gap [Moles/Vol] 11.1 mmol/L Normal [facility] Comment on above: Performed By: #### C VDTBH #### [facility] [address] [place] [address] Dr. Jaja Meadows Calcium [Mass/Vol] 8.1 mg/dL Critically low 8.5-10.1 [facility] Comment on above: Performed By: #### C VDTBH #### [facility] [address] [place] [address] Dr. Jaja Meadows Chloride [Moles/Vol] 109 mmol/L Critically high 98-107 [facility] Comment on above: Performed By: #### C VDTBH #### [facility] [address] [place] [address] Dr. Jaja Meadows CO2 [Moles/Vol] 25.8 mmol/L Normal 21.0-32.0 [facility] Comment on above: Performed By: #### C VDTBH #### [facility] [address] [place] [address] Dr. Jaja Meadows Creatinine [Mass/Vol] 0.89 mg/dL Normal 0.55-1.02 [facility] Comment on above: Performed By: #### C VDTBH #### [facility] [address] [place] [address] Dr. Jaja Meadows EGFR-AF LATVIAN >60 Normal >=60 [facility] Comment on above: Performed By: #### C VDTBH #### [facility] [address] [place] [address] [address] Jaja Meadows EGFR-NON AF LATVIAN 60 mL/min/1.73m2 Normal >=60 [facility] Comment on above: Performed By: #### C VDTBH #### [facility] [address] [address] [address] Jaja Meadows Glucose [Mass/Vol] 92 mg/dL Normal 74-106 [facility] Comment on above: Performed By: #### C VDTBH #### [facility] [address] [address] [address] Jaja Meadows Potassium [Moles/Vol] 3.9 mmol/L Normal 3.5-5.1 [facility] Comment on above: Performed By: #### C VDTBH #### [facility] [address] [address] [address] Jaja Meadows Sodium [Moles/Vol] 142 mmol/L Normal 136-145 [facility] Comment on above: Performed By: #### C VDTBH #### [facility] [address] [address] [address] Jaja Meadows Urea nitrogen [Mass/Vol] 17.0 mg/dL Normal 7.0-18.0 [facility] Comment on above: Performed By: #### C VDTBH #### [facility] [address] [address] [address] Jaja Meadows Urea nitrogen/Creatinine [Mass ratio] 19.1 mg/mg Normal [facility] Comment on above: Performed By: #### C VDTBH #### [facility] [address] [address] [address] Jaja Meadows CBC AUTO DIFFon 10-27-2022 BASO # 0.0 103/ul Normal 0.0-0.1 [facility] Comment on above: Performed By: #### C BC #### [facility] [address] [address] [address] Jaja Meadows Basophils/100 WBC (Bld) 0.5 % Normal 0.2-2.0 [facility] Comment on above: Performed By: #### C BC #### [facility] [address] [place] [address] Dr. Jaja Meadows EO # 0.1 103/ul Normal 0.0-0.7 [facility] Comment on above: Performed By: #### C BC #### [facility] [address] [place] [address] Dr. Jaja Meadows Eosinophils/100 WBC (Bld) 2.5 % Normal 0.9-7.0 [facility] Comment on above: Performed By: #### C BC #### [facility] [address] [place] [address] Dr. Jaja Meadows Erythrocyte distribution width (RBC) [Ratio] 12.7 % Normal 11.0-15.0 [facility] Comment on above: Performed By: #### C BC #### [facility] [address] [place] [address] Dr. Jaja Meadows Hematocrit (Bld) [Volume fraction] 38.7 % Normal 36.0-48.0 [facility] Comment on above: Performed By: #### C BC #### [facility] [address] [place] [address] Dr. Jaja Meadows Hemoglobin (Bld) [Mass/Vol] 12.6 g/dL Normal 12.0-16.0 [facility] Comment on above: Performed By: #### C BC #### [facility] [address] [place] [address] Dr. Jaja Meadows IG # 0.01 10e3/ul Normal 0.00-0.03 [facility] Comment on above: Performed By: #### C BC #### [facility] [address] [place] [address] Dr. Jaja Meadows IG % 0.2 % Normal 0.0-0.5 [facility] Comment on above: Performed By: #### C BC #### [facility] [address] [place] [address] Dr. Jaja Meadows LYMPH # 2.2 103/ul Normal 1.2-3.8 [facility] Comment on above: Performed By: #### C BC #### [facility] [address] [place] [address] Dr. Jaja Meadows Lymphocytes/100 WBC (Bld) 39.0 % Normal 20.5-60.0 [facility] Comment on above: Performed By: #### C BC #### [facility] [address] [place] [address] Dr. Jaja Meadows MANUAL DIFF REQ NO Normal [facility] Comment on above: Performed By: #### C BC #### [facility] [address] [place] [address] Dr. Jaja Meadows MCH (RBC) [Entitic mass] 32.1 pg Normal 26.7-34.0 [facility] Comment on above: Performed By: #### C BC #### [facility] [address] [place] [address] Dr. Jaja Meadows MCHC (RBC) [Mass/Vol] 32.6 g/dL Normal 29.9-35.2 [facility] Comment on above: Performed By: #### C BC #### [facility] [address] [place] [address] Dr. Jaja Meadows MCV (RBC) [Entitic vol] 98.5 fL Normal 81.0-99.0 [facility] Comment on above: Performed By: #### C BC #### [facility] [address] [place] [address] Dr. Jaja Meadows MONO # 0.6 103/ul Normal 0.3-0.8 [facility] Comment on above: Performed By: #### C BC #### [facility] [address] [place] [address] Dr. Jaja Meadows Monocytes/100 WBC (Bld) 10.7 % Normal 1.7-12.0 [facility] Comment on above: Performed By: #### C BC #### [facility] [address] [place] [address] Dr. Jaja Meadows NEUT # 2.6 103/ul Normal 1.4-6.5 [facility] Comment on above: Performed By: #### C BC #### [facility] [address] [address] [address] Jaja Meadows Neutrophils/100 WBC (Bld) 47.1 % Normal 43.0-75.0 [facility] Comment on above: Performed By: #### C BC #### [facility] [address] [address] [address] Jaja Meadows Platelet mean volume (Bld) [Entitic vol] 9.8 fL Normal 9.5-13.5 [facility] Comment on above: Performed By: #### C BC #### [facility] [address] [address] [address] Jaja Meadows PLT 163 103/ul Normal 150-450 [facility] Comment on above: Performed By: #### C BC #### [facility] [address] [place] [address] Dr. Jaja Meadows RBC 3.93 106/ul Critically low 4.20-5.40 [facility] Comment on above: Performed By: #### C BC #### [facility] [address] [place] [address] Dr. Jaja Meadows WBC 5.5 103/ul Normal 4.0-11.0 [facility] Comment on above: Performed By: #### C BC #### [facility] [address] [place] [address] Dr. Jaja Meadows PROF CHEM 8 (BAS METB)on Anion gap [Moles/Vol] 8.8 mmol/L Normal [facility] Comment on above: Performed By: #### C VDTBH #### [facility] [address] [place] [address] Dr. Jaja Meadows Calcium [Mass/Vol] 8.1 mg/dL Critically low 8.5-10.1 [facility] Comment on above: Performed By: #### C VDTBH #### [facility] [address] [place] [address] Dr. Jaja Meadows Chloride [Moles/Vol] 110 mmol/L Critically high 98-107 [facility] Comment on above: Performed By: #### C VDTBH #### [facility] [address] [address] [address] Jaja Meadows CO2 [Moles/Vol] 27.9 mmol/L Normal 21.0-32.0 [facility] Comment on above: Performed By: #### C VDTBH #### [facility] [address] [address] [address] Jaja Meadows Creatinine [Mass/Vol] 0.93 mg/dL Normal 0.55-1.02 [facility] Comment on above: Performed By: #### C VDTBH #### [facility] [address] [address] [address] Jaja Meadows EGFR-AF LATVIAN >60 Normal >=60 [facility] Comment on above: Performed By: #### C VDTBH #### [facility] [address] [place] [address] Dr. Jaja Meadows EGFR-NON AF LATVIAN 57 mL/min/1.73m2 Critically low >=60 [facility] Comment on above: Performed By: #### C VDTBH #### [facility] [address] [address] [address] Jaja Meadows Glucose [Mass/Vol] 95 mg/dL Normal 74-106 [facility] Comment on above: Performed By: #### C VDTBH #### [facility] [address] [address] [address] Jaja Meadows Potassium [Moles/Vol] 3.7 mmol/L Normal 3.5-5.1 [facility] Comment on above: Performed By: #### C VDTBH #### [facility] [address] [address] [address] Jaja Meadows Sodium [Moles/Vol] 143 mmol/L Normal 136-145 [facility] Comment on above: Performed By: #### C VDTBH #### [facility] [address] [address] [address] Jaja Meadows Urea nitrogen [Mass/Vol] 18.0 mg/dL Normal 7.0-18.0 [facility] Comment on above: Performed By: #### C VDTBH #### [facility] [address] [place] [address] Dr. Jaja Meadows Urea nitrogen/Creatinine [Mass ratio] 19.4 mg/mg Normal [facility] Comment on above: Performed By: #### C VDTBH #### [facility] [address] [place] [address] Dr. Jaja Meadows UA (CLEAN/CATCH) PERCH MACHINE INSPECTOR/MICRO I F IND.on 10-27-2022 Bilirubin Ql (U) Negative Normal NEGATIVE [facility] Comment on above: Performed By: #### C VDTBH #### [facility] [address] [place] [address] Dr. Jaja Meadows Clarity (U) CLEAR Normal CLEAR [facility] Comment on above: Performed By: #### C VDTBH #### [facility] [address] [place] [address] Dr. Jaja Meadows Color (U) LT. YELLOW Normal YELLOW [facility] Comment on above: Performed By: #### C VDTBH #### [facility] [address] [place] [address] Dr. Jaja Meadows Glucose Ql (U) Negative Normal NEGATIVE [facility] [place] Comment on above: Performed By: #### C VDTBH #### [facility] [address] [place] [address] Dr. Jaja Meadows Hemoglobin Ql (U) SMALL Abnormal NEGATIVE [facility] Comment on above: Performed By: #### C VDTBH #### [facility] [address] [place] [address] Dr. Jaja Meadows Ketones Ql (U) Negative Normal NEGATIVE [facility] Comment on above: Performed By: #### C VDTBH #### [facility] [address] [place] [address] Dr. Jaja Meadows LEUKOCYTES LARGE Abnormal NEGATIVE [facility] Comment on above: Performed By: #### C VDTBH #### [facility] [address] [place] [address] Dr. Jaja Meadows Nitrite Ql (U) Positive Abnormal NEGATIVE [facility] [place] Comment on above: Performed By: #### C VDTBH #### [facility] [address] [place] [address] Dr. Jaja Meadows pH (U) 6.5 [pH] Normal 5-9 [facility] Comment on above: Performed By: #### C VDTBH #### [facility] [address] [place] [address] Dr. Jaja Meadows SPEC GRAVITY 1.015 Normal 1.005-<=1. 025 [facility] Comment on above: Performed By: #### C VDTBH #### [facility] [address] [place] [address] Dr. Jaja Meadows UA PROTEIN Negative Normal NEGATIVE/ TRACE [facility] Comment on above: Performed By: #### C VDTBH #### [facility] [address] [place] [address] Dr. Jaja Meadows UR MICRO IND INDICATED Normal [facility] Comment on above: Performed By: #### C VDTBH #### [facility] [address] [place] [address] Dr. Jaja Meadows Urobilinogen Qn (U) 0.2 {Son'U}/dL Normal 0.2 - 1. 0 [facility] Comment on above: Performed By: #### C VDTBH #### [facility] [address] [place] [address] Dr. Jaja Meadows URINE MICROSCOPIC ONLYon BACTERIA MODERATE Abnormal NONE SEEN [facility] Comment on above: Performed By: #### B MP #### [facility] [address] [place] [address] Dr. Jaja Meadows Bacteria identified Cx Nom (U) INDICATED Normal [facility] Comment on above: Performed By: #### B MP #### [facility] [address] [place] [address] Dr. Jaja Meadows CAST NONE SEEN Normal NONE SEEN [facility] Comment on above: Performed By: #### B MP #### [facility] [address] [place] [address] Dr. Jaja Meadows Crystals LM Nom (Urine sed) NONE SEEN Normal NONE SEEN [facility] Comment on above: Performed By: #### B MP #### [facility] [address] [place] [address] Dr. Jaja Meadows Epithelial cells LM Ql (Urine sed) FEW Abnormal NONE SEEN /RARE [facility] Comment on above: Performed By: #### B MP #### [facility] [address] [place] [address] Dr. Jaja Meadows MUCOUS TRACE Abnormal NONE SEEN [facility] Comment on above: Performed By: #### B MP #### [facility] [address] [place] [address] Dr. Jaja Meadows RBC 5-10 Abnormal 0-2 [facility] Comment on above: Performed By: #### B MP #### [facility] [address] [place] [address] Dr. Jaja Meadows WBC 50-75 Abnormal NONE SEEN [facility] Comment on above: Performed By: #### B MP #### [facility] [address] [place] [address] Dr. Jaja Meadows CBC AUTO DIFFon 10-26-2022 BASO # 0.0 103/ul Normal 0.0-0.1 [facility] Comment on above: Performed By: #### C BC #### [facility] [address] [place] [address] Dr. Jaja Meadows Basophils/100 WBC (Bld) 0.6 % Normal 0.2-2.0 [facility] Comment on above: Performed By: #### C BC #### [facility] [address] [place] [address] Dr. Jaja Meadows EO # 0.1 103/ul Normal 0.0-0.7 [facility] Comment on above: Performed By: #### C BC #### [facility] [address] [place] [address] Dr. Jaja Meadows Eosinophils/100 WBC (Bld) 0.8 % Critically low 0.9-7.0 [facility] Comment on above: Performed By: #### C BC #### [facility] [address] [place] [address] Dr. Jaja Meadows Erythrocyte distribution width (RBC) [Ratio] 12.5 % Normal 11.0-15.0 [facility] Comment on above: Performed By: #### C BC #### [facility] [address] [place] [address] Dr. Jaja Maedows Hematocrit (Bld) [Volume fraction] 41.7 % Normal 36.0-48.0 [facility] Comment on above: Performed By: #### C BC #### [facility] [address] [place] [address] Dr. Jaja Meadows Hemoglobin (Bld) [Mass/Vol] 13.7 g/dL Normal 12.0-16.0 [facility] Comment on above: Performed By: #### C BC #### [facility] [address] [place] [address] Dr. Jaja Meadows IG # 0.03 10e3/ul Normal 0.00-0.03 [facility] Comment on above: Performed By: #### C BC #### [facility] [address] [place] [address] Dr. Jaja Meadows IG % 0.4 % Normal 0.0-0.5 [facility] Comment on above: Performed By: #### C BC #### [facility] [address] [place] [address] Dr. Jaja Meadows LYMPH # 1.6 103/ul Normal 1.2-3.8 [facility] Comment on above: Performed By: #### C BC #### [facility] [address] [place] [address] Dr. Jaja Meadows Lymphocytes/100 WBC (Bld) 22.2 % Normal 20.5-60.0 [facility] Comment on above: Performed By: #### C BC #### [facility] [address] [place] [address] Dr. Jaja Meadows MANUAL DIFF REQ NO Normal [facility] Comment on above: Performed By: #### C BC #### [facility] [address] [place] [address] Dr. Jaja Meadows MCH (RBC) [Entitic mass] 31.6 pg Normal 26.7-34.0 [facility] Comment on above: Performed By: #### C BC #### [facility] [address] [place] [address] Dr. Jaja Meadows MCHC (RBC) [Mass/Vol] 32.9 g/dL Normal 29.9-35.2 [facility] Comment on above: Performed By: #### C BC #### [facility] [address] [place] [address] Dr. Jaja Meadows MCV (RBC) [Entitic vol] 96.3 fL Normal 81.0-99.0 [facility] Comment on above: Performed By: #### C BC #### [facility] [address] [place] [address] Dr. aJja Meadows MONO # 0.7 103/ul Normal 0.3-0.8 [facility] Comment on above: Performed By: #### C BC #### [facility] [address] [place] [address] Dr. Jaja Meadows Monocytes/100 WBC (Bld) 9.9 % Normal 1.7-12.0 [facility] Comment on above: Performed By: #### C BC #### [facility] [address] [place] [address] Dr. Jaja Meadows NEUT # 4.7 103/ul Normal 1.4-6.5 [facility] Comment on above: Performed By: #### C BC #### [facility] [address] [place] [address] Dr. Jaja Meadows Neutrophils/100 WBC (Bld) 66.1 % Normal 43.0-75.0 [facility] Comment on above: Performed By: #### C BC #### [facility] [address] [place] [address] Dr. Jaja Meadows Platelet mean volume (Bld) [Entitic vol] 9.5 fL Normal 9.5-13.5 [facility] Comment on above: Performed By: #### C BC #### [facility] [address] [place] [address] Dr. Jaja Meadows PLT 173 103/ul Normal 150-450 [facility] Comment on above: Performed By: #### C BC #### [facility] [address] [place] [address] Dr. Jaja Meadows RBC 4.33 106/ul Normal 4.20-5.40 [facility] Comment on above: Performed By: #### C BC #### [facility] [address] [place] [address] Dr. Jaja Meadows WBC 7.1 103/ul Normal 4.0-11.0 [facility] Comment on above: Performed By: #### C BC #### [facility] [address] [place] [address] Dr. Jaja Meadows PROF CHEM 8 (BAS METB)on Anion gap [Moles/Vol] 9.5 mmol/L Normal [facility] Comment on above: Performed By: #### B MP #### [facility] [address] [place] [address] Dr. Jaja Meadows Calcium [Mass/Vol] 8.5 mg/dL Normal 8.5-10.1 [facility] Comment on above: Performed By: #### B MP #### [facility] [address] [place] [address] Dr. Jaja Meadows Chloride [Moles/Vol] 106 mmol/L Normal 98-107 [facility] Comment on above: Performed By: #### B MP #### [facility] [address] [place] [address] Dr. Jaja Meadows CO2 [Moles/Vol] 28.2 mmol/L Normal 21.0-32.0 [facility] Comment on above: Performed By: #### B MP #### [facility] [address] [place] [address] Dr. Jaja Meadows Creatinine [Mass/Vol] 0.99 mg/dL Normal 0.55-1.02 [facility] Comment on above: Performed By: #### B MP #### [facility] [address] [place] [address] Dr. Jaja Meadows EGFR-AF LATVIAN >60 Normal >=60 [facility] Comment on above: Performed By: #### B MP #### [facility] [address] [address] [address] Jaja Meadows EGFR-NON AF LATVIAN 53 mL/min/1.73m2 Critically low >=60 [facility] Comment on above: Performed By: #### B MP #### [facility] [address] [address] [address] Jaja Meadows Glucose [Mass/Vol] 107 mg/dL Critically high 74-106 [facility] Comment on above: Performed By: #### B MP #### [facility] [address] [address] [address] Jaja Meadows Potassium [Moles/Vol] 3.7 mmol/L Normal 3.5-5.1 [facility] Comment on above: Performed By: #### B MP #### [facility] [address] [address] [address] Jaja Meadows Sodium [Moles/Vol] 140 mmol/L Normal 136-145 [facility] Comment on above: Performed By: #### B MP #### [facility] [address] [address] [address] Jaja Meadows Urea nitrogen [Mass/Vol] 18.0 mg/dL Normal 7.0-18.0 [facility] Comment on above: Performed By: #### B MP #### [facility] [address] [address] [address] Jaja Meadows Urea nitrogen/Creatinine [Mass ratio] 18.2 mg/mg Normal [facility] Comment on above: Performed By: #### B MP #### [facility] [address] [address] [address] Jaja Meadows CBC AUTO DIFFon 10-25-2022 BASO # 0.0 103/ul Normal 0.0-0.1 [facility] Comment on above: Performed By: #### P TT, PT #### [facility] [address] [address] [address] Jaja Meadows Basophils/100 WBC (Bld) 0.3 % Normal 0.2-2.0 [facility] Comment on above: Performed By: #### P TT, PT #### [facility] [address] [place] [address] Dr. Jaja Meadows EO # 0.0 103/ul Normal 0.0-0.7 [facility] Comment on above: Performed By: #### P TT, PT #### [facility] [address] [place] [address] Dr. Jaja Meadows Eosinophils/100 WBC (Bld) 0.1 % Critically low 0.9-7.0 [facility] Comment on above: Performed By: #### P TT, PT #### [facility] [address] [place] [address] Dr. Jaja Meadows Erythrocyte distribution width (RBC) [Ratio] 12.3 % Normal 11.0-15.0 [facility] Comment on above: Performed By: #### P TT, PT #### [facility] [address] [place] [address] Dr. Jaja Meadows Hematocrit (Bld) [Volume fraction] 40.5 % Normal 36.0-48.0 [facility] Comment on above: Performed By: #### P TT, PT #### [facility] [address] [place] [address] Dr. Jaja Meadows Hemoglobin (Bld) [Mass/Vol] 13.7 g/dL Normal 12.0-16.0 [facility] Comment on above: Performed By: #### P TT, PT #### [facility] [address] [place] [address] Dr. Jaja Meadows IG # 0.03 10e3/ul Normal 0.00-0.03 [facility] Comment on above: Performed By: #### P TT, PT #### [facility] [address] [place] [address] Dr. Jaja Meadows IG % 0.3 % Normal 0.0-0.5 [facility] Comment on above: Performed By: #### P TT, PT #### [facility] [address] [place] [address] Dr. Jaja Meadows LYMPH # 0.8 103/ul Critically low 1.2-3.8 [facility] [place] Comment on above: Performed By: #### P TT, PT #### [facility] [address] [place] [address] Dr. Jaja Meadows Lymphocytes/100 WBC (Bld) 8.5 % Critically low 20.5-60.0 [facility] Comment on above: Performed By: #### P TT, PT #### [facility] [address] [place] [address] Dr. Jaja Meadows MANUAL DIFF REQ NO Normal [facility] Comment on above: Performed By: #### P TT, PT #### [facility] [address] [place] [address] Dr. Jaja Meadows MCH (RBC) [Entitic mass] 32.2 pg Normal 26.7-34.0 [facility] Comment on above: Performed By: #### P TT, PT #### [facility] [address] [place] [address] Dr. Jaja Meadows MCHC (RBC) [Mass/Vol] 33.8 g/dL Normal 29.9-35.2 [facility] Comment on above: Performed By: #### P TT, PT #### [facility] [address] [place] [address] Dr. Jaja Meadows MCV (RBC) [Entitic vol] 95.1 fL Normal 81.0-99.0 [facility] Comment on above: Performed By: #### P TT, PT #### [facility] [address] [place] [address] Dr. Jaja Meadows MONO # 0.7 103/ul Normal 0.3-0.8 [facility] Comment on above: Performed By: #### P TT, PT #### [facility] [address] [place] [address] Dr. Jaja Meadows Monocytes/100 WBC (Bld) 7.4 % Normal 1.7-12.0 [facility] Comment on above: Performed By: #### P TT, PT #### [facility] [address] [place] [address] Dr. Jaja Meadows NEUT # 7.5 103/ul Critically high 1.4-6.5 [facility] Comment on above: Performed By: #### P TT, PT #### [facility] [address] [place] [address] Dr. Jaja Meadows Neutrophils/100 WBC (Bld) 83.4 % Critically high 43.0-75.0 [facility] Comment on above: Performed By: #### P TT, PT #### [facility] [address] [place] [address] Dr. Jaja Meadows Platelet mean volume (Bld) [Entitic vol] 9.6 fL Normal 9.5-13.5 [facility] Comment on above: Performed By: #### P TT, PT #### [facility] [address] [place] [address] Dr. Jaja Meadows PLT 159 103/ul Normal 150-450 [facility] Comment on above: Performed By: #### P TT, PT #### [facility] [address] [place] [address] Dr. Jaja Meadows RBC 4.26 106/ul Normal 4.20-5.40 [facility] Comment on above: Performed By: #### P TT, PT #### [facility] [address] [place] [address] Dr. Jaja Meadows WBC 9.1 103/ul Normal 4.0-11.0 [facility] Comment on above: Performed By: #### P TT, PT #### [facility] [address] [place] [address] Dr. Jaja Meadows Covid-19 PCR ([facility])on SARS-CoV-2 (COVID-19) RNA GASTON+probe Ql (Unsp spec) Not detected Normal NOT DETECTED [facility] Comment on above: Result Comment: When [...] for this test is supported by the Pharmacy Customer Care Specialist of Health and Human Service's declaration that [...] longer be used). Performed By: #### C VDTB #### [facility] [address] [place] [address] Dr. Jaja Meadows PROF CHEM 8 (BAS METB)on Anion gap [Moles/Vol] 15.6 mmol/L Normal [facility] Comment on above: Performed By: #### P TT, PT #### [facility] [address] [place] [address] Dr. Jaja Meadows Calcium [Mass/Vol] 8.6 mg/dL Normal 8.5-10.1 [facility] Comment on above: Performed By: #### P TT, PT #### [facility] [address] [place] [address] Dr. Jaja Meadows Chloride [Moles/Vol] 104 mmol/L Normal 98-107 [facility] Comment on above: Performed By: #### P TT, PT #### [facility] [address] [place] [address] Dr. Jaja Meadows CO2 [Moles/Vol] 23.6 mmol/L Normal 21.0-32.0 [facility] Comment on above: Performed By: #### P TT, PT #### [facility] [address] [place] [address] Dr. Jaja Meadows Creatinine [Mass/Vol] 1.08 mg/dL Critically high 0.55-1.02 [facility] Comment on above: Performed By: #### P TT, PT #### [facility] [address] [place] [address] Dr. Jaja Meadows EGFR-AF LATVIAN 58 mL/min/1.73m2 Critically low >=60 [facility] Comment on above: Performed By: #### P TT, PT #### [facility] [address] [address] [address] Jaja Meadows EGFR-NON AF LATVIAN 48 mL/min/1.73m2 Critically low >=60 [facility] Comment on above: Performed By: #### P TT, PT #### [facility] [address] [address] [address] Jaja Meadows Glucose [Mass/Vol] 143 mg/dL Critically high 74-106 [facility] Comment on above: Performed By: #### P TT, PT #### [facility] [address] [address] [address] Jaja Meadows Potassium [Moles/Vol] 4.2 mmol/L Normal 3.5-5.1 [facility] Comment on above: Performed By: #### P TT, PT #### [facility] [address] [place] [address] Dr. Jaja Meadows Sodium [Moles/Vol] 139 mmol/L Normal 136-145 [facility] Comment on above: Performed By: #### P TT, PT #### [facility] [address] [address] [address] Jaja Meadows Urea nitrogen [Mass/Vol] 29.0 mg/dL Critically high 7.0-18.0 [facility] Comment on above: Performed By: #### P TT, PT #### [facility] [address] [place] [address] Dr. Jaja Meadows Urea nitrogen/Creatinine [Mass ratio] 26.9 mg/mg Normal [facility] Comment on above: Performed By: #### P TT, PT #### [facility] [id number] Jaja Meadows Echocardiogramon 06-07-2022 Echocardiography Please click on the link to view the study images Normal [facility] [id number] [place] Work Phone: Echocardiography [facility] [address], Suite [facility], [place] [address] TRANSTHORACIC ECHOCARDIOGRAM REPORT Patient Name: MILIND Caballero Physician: [id number] Tylor Shanks MD, [facility] Study Date: 06/07/2022 Referring [id number] ISMAEL TORODON Physician: MRN/PID: [id number] PCP: Sara Blake Accession/Order#: [id number] [facility] Location: Date of : 1935 Fellow: Gender: F Nurse: Admit 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 Falls Screening (Age 18+)on 06-07-2022 Fall risk assessment a) No falls within the last year -[facility] [address] [place] Work Phone: CULTURE URINEon [...] Trimethoprim/Sulfamethoxa zole <=20 S F Normal [facility] Comment on above: Performed By: #### P TT, PT #### [facility] [address] [address] [address] Jaja Meadows UA RANDOM W/MICROSCOPICon BACTERIA LARGE Abnormal NONE SEEN [facility] Comment on above: Performed By: #### P TT, PT #### [facility] [address] [place], [place] [address] Dr[address] Jaja Meadows Bilirubin Ql (U) Negative Normal NEGATIVE [facility] Comment on above: Performed By: #### P TT, PT #### [facility] [address] [place] [address] Dr. Jaja Meadows CAST NONE SEEN Normal NONE SEEN [facility] Comment on above: Performed By: #### P TT, PT #### [facility] [address] [place] [address] Dr. Jaja Meadows Clarity (U) SL CLOUDY Abnormal CLEAR [facility] Comment on above: Performed By: #### P TT, PT #### [facility] [address] [place] [address] Dr. Jaja Meadows Color (U) LT. YELLOW Normal YELLOW [facility] Comment on above: Performed By: #### P TT, PT #### [facility] [address] [place] [address] Dr. Jaja Meadows Crystals LM Nom (Urine sed) NONE SEEN Normal NONE SEEN [facility] Comment on above: Performed By: #### P TT, PT #### [facility] [address] [place] [address] Dr. Jaja Meadows Epithelial cells LM Ql (Urine sed) FEW Abnormal NONE SEEN /RARE [facility] Comment on above: Performed By: #### P TT, PT #### [facility] [address] [place] [address] Dr. Jaja Meadows Glucose Ql (U) Negative Normal NEGATIVE [facility] Comment on above: Performed By: #### P TT, PT #### [facility] [address] [place] [address] Dr. Jaja Meadows Hemoglobin Ql (U) TRACE-INTACT Abnormal NEGATIVE [facility] Comment on above: Performed By: #### P TT, PT #### [facility] [address] [place] [address] Dr. Jaja Meadows Ketones Ql (U) Negative Normal NEGATIVE [facility] Comment on above: Performed By: #### P TT, PT #### [facility] [address] [place] [address] Dr. Jaja Meadows LEUKOCYTES TRACE Abnormal NEGATIVE [facility] Comment on above: Performed By: #### P TT, PT #### [facility] [address] [place] [address] Dr. Jaja Meadows MUCOUS NONE SEEN Normal NONE SEEN [facility] Comment on above: Performed By: #### P TT, PT #### [facility] [address] [place] [address] Dr. Jaja Meadows Nitrite Ql (U) Positive Abnormal NEGATIVE [facility] [place] Comment on above: Performed By: #### P TT, PT #### [facility] [address] [place] [address] Dr. Jaja Meadows pH (U) 6.5 [pH] Normal 5-9 [facility] Comment on above: Performed By: #### P TT, PT #### [facility] [address] [place] [address] Dr. Jaja Meadows RBC 0-2 Normal 0-2 [facility] Comment on above: Performed By: #### P TT, PT #### [facility] [address] [place] [address] Dr. Jaja Meadows SPEC GRAVITY 1.020 Normal 1.005-<=1. 025 [facility] Comment on above: Performed By: #### P TT, PT #### [facility] [address] [place] [address] Dr. Jaja Meadows UA PROTEIN Negative Normal NEGATIVE/ TRACE [facility] Comment on above: Performed By: #### P TT, PT #### [facility] [address] [place] [address] Dr. Jaja Meadows Urobilinogen Qn (U) 0.2 {Son'U}/dL Normal 0.2 - 1. 0 [facility] Comment on above: Performed By: #### P TT, PT #### [facility] [address] [place] [address] Dr. Jaja Meadows WBC 20-50 Abnormal NONE SEEN [facility] Comment on above: Performed By: #### P TT, PT #### [facility] [address] [place] [address] Dr. Jaja Meadows TSHon 05-21-2022 TSH 2.591 uIU/mL Normal 0.358-3.74 0 [facility] Comment on above: Performed By: #### C VDTBH #### [facility] [address] [place] [address] Dr. Jaja Meadows VITAMIN B12on 05-21-2022 Cobalamin (Vitamin B12) [Mass/Vol] 403.0 pg/mL Normal 193.0-986. 0 [facility] Comment on above: Performed By: #### C VDTBH #### [facility] [address] [place] [address] Dr. Jaja Meadows Tobacco Screening.on 022 Fall risk assessment a) No falls within the last year -[facility] [address] [place] Work Phone: Tobacco use status [facility]PH[facility] b) No -[facility] [address] [place] Work Phone: CBC AUTO DIFFon 05-07-2022 BASO # 0.0 103/ul Normal 0.0-0.1 [facility] Comment on above: Performed By: #### C VDTBH #### [facility] [address] [place] [address] Dr. Jaja Meadows Basophils/100 WBC (Bld) 0.4 % Normal 0.2-2.0 [facility] Comment on above: Performed By: #### C VDTBH #### [facility] [address] [place] [address] Dr. Jaja Meadows EO # 0.1 103/ul Normal 0.0-0.7 [facility] Comment on above: Performed By: #### C VDTBH #### [facility] [address] [place] [address] Dr. Jaja Meadows Eosinophils/100 WBC (Bld) 1.3 % Normal 0.9-7.0 [facility] Comment on above: Performed By: #### C VDTBH #### [facility] [address] [place] [address] Dr. Jaja Meadows Erythrocyte distribution width (RBC) [Ratio] 13.6 % Normal 11.0-15.0 [facility] Comment on above: Performed By: #### C VDTBH #### [facility] [address] [place] [address] Dr. Jaja Meadows Hematocrit (Bld) [Volume fraction] 41.4 % Normal 36.0-48.0 [facility] Comment on above: Performed By: #### C VDTBH #### [facility] [address] [place] [address] Dr. Jaja Meadows Hemoglobin (Bld) [Mass/Vol] 13.2 g/dL Normal 12.0-16.0 [facility] Comment on above: Performed By: #### C VDTBH #### [facility] [address] [place] [address] Dr. Jaja Meadows IG # 0.04 10e3/ul Critically high 0.00-0.[address] [facility] Comment on above: Performed By: #### C VDTBH #### [facility] [address] [place] [address] Dr. Jaja Meadows IG % 0.6 % Critically high 0.0-0.5 [facility] Comment on above: Performed By: #### C VDTBH #### [facility] [address] [place] [address] Dr. Jaja Meadows LYMPH # 2.3 103/ul Normal 1.2-3.8 [facility] Comment on above: Performed By: #### C VDTBH #### [facility] [address] [place] [address] Dr. Jaja Meadows Lymphocytes/100 WBC (Bld) 34.0 % Normal 20.5-60.0 [facility] Comment on above: Performed By: #### C VDTBH #### [facility] [address] [place] [address] Dr. Jaja Meadows MANUAL DIFF REQ NO Normal [facility] Comment on above: Performed By: #### C VDTBH #### [facility] [address] [place] [address] Dr. Jaja Meadows MCH (RBC) [Entitic mass] 30.4 pg Normal 26.7-34.0 [facility] Comment on above: Performed By: #### C VDTBH #### [facility] [address] [place] [address] Dr. Jaja Meadows MCHC (RBC) [Mass/Vol] 31.9 g/dL Normal 29.9-35.2 [facility] Comment on above: Performed By: #### C VDTBH #### [facility] [address] [place] [address] Dr. Jaja Meadows MCV (RBC) [Entitic vol] 95.4 fL Normal 81.0-99.0 [facility] Comment on above: Performed By: #### C VDTBH #### [facility] [address] [place] [address] Dr. Jaja Meadows MONO # 0.5 103/ul Normal 0.3-0.8 [facility] Comment on above: Performed By: #### C VDTBH #### [facility] [address] [place] [address] Dr. Jaja Meadows Monocytes/100 WBC (Bld) 7.9 % Normal 1.7-12.0 [facility] Comment on above: Performed By: #### C VDTBH #### [facility] [address] [place] [address] Dr. Jaja Meadows NEUT # 3.8 103/ul Normal 1.4-6.5 [facility] Comment on above: Performed By: #### C VDTBH #### [facility] [address] [place] [address] Dr. Jaja Meadows Neutrophils/100 WBC (Bld) 55.8 % Normal 43.0-75.0 [facility] Comment on above: Performed By: #### C VDTBH #### [facility] [address] [place] [address] Dr. Jaja Meadows Platelet mean volume (Bld) [Entitic vol] 9.3 fL Critically low 9.5-13.5 [facility] Comment on above: Performed By: #### C VDTBH #### [facility] [address] [place] [address] Dr. Jaja Meadows PLT 245 103/ul Normal 150-450 [facility] Comment on above: Performed By: #### C VDTBH #### [facility] [address] [address] [address] Jaja Meadows RBC 4.34 106/ul Normal 4.20-5.40 [facility] Comment on above: Performed By: #### C VDTBH #### [facility] [address] [address] [address] Jaja Meadows WBC 6.9 103/ul Normal 4.0-11.0 [facility] Comment on above: Performed By: #### C VDTBH #### [facility] [address] [address] [address] Jaja Meadows Covid-19 PCR ([facility])on 04-23 SARS-CoV-2 (COVID-19) RNA GASTON+probe Ql (Unsp spec) Not detected Normal NOT DETECTED [facility] Comment on above: Result Comment: When [...] for this test is supported by the Pharmacy Customer Care Specialist of Health and Human Service's declaration that [...] used). Performed By: #### C VDTBH #### [facility] [address] [address] [address] Jaja Meadows PROF 14(COMP METB)on 022 Albumin [Mass/Vol] 3.2 g/dL Critically low 3.4-5.0 [facility] Comment on above: Performed By: #### C MP, HSTROPN #### [facility] [address] [address] [address] Jaja Meadows Albumin/Globulin [Mass ratio] 1.0 {ratio} Normal [facility] Comment on above: Performed By: #### C MP, HSTROPN #### [facility] [address] [address] [address] Jaja Meadows ALP [Catalytic activity/Vol] 60 U/L Normal 46-116 [facility] Comment on above: Performed By: #### C MP, HSTROPN #### [facility] [address] [address] [address] Jaja Meadows ALT [Catalytic activity/Vol] 20 U/L Normal 14-59 [facility] Comment on above: Performed By: #### C MP, HSTROPN #### [facility] [address] [address] [address] Jaja Meadows Anion gap [Moles/Vol] 10.3 mmol/L Normal [facility] Comment on above: Performed By: #### C MP, HSTROPN #### [facility] [address] [address] [address] Jaja Meadows AST [Catalytic activity/Vol] 19 U/L Normal 15-37 [facility] Comment on above: Performed By: #### C MP, HSTROPN #### [facility] [address] [address] [address] Jaja Meadows Bilirubin [Mass/Vol] 0.3 mg/dL Normal 0.2-1.0 [facility] Comment on above: Performed By: #### C MP, HSTROPN #### [facility] [address] [address] [address] Jaja Meadows Calcium [Mass/Vol] 8.9 mg/dL Normal 8.5-10.1 [facility] Comment on above: Performed By: #### C MP, HSTROPN #### [facility] [address] [address] [address] Jaja Meadows Chloride [Moles/Vol] 107 mmol/L Normal 98-107 [facility] Comment on above: Performed By: #### C MP, HSTROPN #### [facility] [address] [address] [address] Jaja Meadows CO2 [Moles/Vol] 29.3 mmol/L Normal 21.0-32.0 [facility] Comment on above: Performed By: #### C JESSIE, HSTROPN #### [facility] [address] [address] [address] Jaja Meadows Creatinine [Mass/Vol] 0.99 mg/dL Normal 0.55-1.02 [facility] Comment on above: Performed By: #### C JESSIE, HSTROPN #### [facility] [address] [place] [address] Dr. Jaja Meadows EGFR-AF LATVIAN >60 Normal >=60 [facility] Comment on above: Performed By: #### C JESSIE, HSTROPN #### [facility] [address] [place] [address] Dr. Jaja Meadows EGFR-NON AF LATVIAN 53 mL/min/1.73m2 Critically low >=60 [facility] Comment on above: Performed By: #### C JESSIE, HSTROPN #### [facility] [address] [place] [address] Dr. Jaja Meadows Globulin (S) [Mass/Vol] 3.1 g/dL Normal [facility] Comment on above: Performed By: #### C JESSIE, HSTROPN #### [facility] [address] [address] [address] Jaja Meadows Glucose [Mass/Vol] 117 mg/dL Critically high 74-106 [facility] Comment on above: Performed By: #### C JESSIE, HSTROPN #### [facility] [address] [place] [address] Dr. Jaja Meadows Potassium [Moles/Vol] 3.6 mmol/L Normal 3.5-5.1 [facility] Comment on above: Performed By: #### C JESSIE, HSTROPN #### [facility] [address] [place] [address] Dr. Jaja Meadows Protein [Mass/Vol] 6.3 g/dL Critically low 6.4-8.2 [facility] Comment on above: Performed By: #### C MP, HSTROPN #### [facility] [address] [place] [address] Dr. Jaja Meadows Sodium [Moles/Vol] 143 mmol/L Normal 136-145 [facility] Comment on above: Performed By: #### C MP, HSTROPN #### [facility] [address] [place] [address] Dr. Jaja Meadows Urea nitrogen [Mass/Vol] 26.0 mg/dL Critically high 7.0-18.0 [facility] Comment on above: Performed By: #### C MP, HSTROPN #### [facility] [address] [place] [address] Dr. Jaja Meadows Urea nitrogen/Creatinine [Mass ratio] 26.3 mg/mg Normal [facility] Comment on above: Performed By: #### C MP, HSTROPN #### [facility] [address] [place] [address] Dr. Jaja Meadows PROTIMEon 05-07-2022 INR Coag (PPP) [Relative time] 0.98 {INR} Normal [facility] Comment on above: Performed By: #### P TT, PT #### [facility] [address] [place] [address] Dr. Jaja Meadows INR GUIDELINES SEE BELOW Normal [facility] Comment on above: Result Comment: SEE RED INR: 2.0 - 3.0 CONDITIONS NOT LISTED BELOW 2.5 - 3.5 FOR PROSTHETIC HEART VALVE REPLACEMENT 2.5 - 3.5 RECURRENT THROMBOSIS Performed By: #### P TT, PT #### [facility] [address] [place] [address] Dr. Jaja Meadows PT Coag (PPP) [Time] 10.6 s Normal 9.0-11.6 [facility] Comment on above: Performed By: #### P TT, PT #### [facility] [address] [place] [address] Dr. Jaja Meadows PTTon 05-07-2022 aPTT Coag (Bld) [Time] 28.3 s Normal 22.3-36.2 [facility] Comment on above: Performed By: #### P TT, PT #### [facility] [address], [place] [address] Dr. Jaja Meadows TROPONIN, HIGH SENSITIVITYon 05-07-2022 HSTROP 875.9 pg/mL Critically high 4.0-51.3 [facility] Comment on above: Result Comment: CUT- OFF POINTS HAVE BEEN ESTABLISHED BASED ON THE FOURTH UNIVERSAL DEFINITIONS OF MYOCARDIAL INFARCTION. THE UPPER REFERENCE LIMIT (URL) OF TROPONIN, DEFINED THE 99TH PERCENTILE OF cTnI DISTRIBUTION IN A REFERENCE POPULATION, HAS BEEN CONFIRMED THE DECISION THRESHOLD FOR [place] DIAGNOSIS. Performed By: #### C MP, HSTROPN #### [facility] [address], [place] [address] Dr. Jaja Meadows HSTROP 2777.5 pg/mL Critically high 4.0-51.[address] [facility] Comment on above: Result Comment: CUT- OFF POINTS HAVE BEEN ESTABLISHED BASED ON THE FOURTH UNIVERSAL DEFINITIONS OF MYOCARDIAL INFARCTION. THE UPPER REFERENCE LIMIT (URL) OF TROPONIN, DEFINED THE 99TH PERCENTILE OF cTnI DISTRIBUTION IN A REFERENCE POPULATION, HAS BEEN CONFIRMED THE DECISION THRESHOLD FOR [place] DIAGNOSIS. Performed By: #### H STROPN #### [facility] [address], [place] [address] Dr. Jaja Meadows XR CHEST 1 Von [...] by: ANUPAMA CASAREZ Date: 2022-05-07 06:42 Normal [facility] CULTURE URINEon 05-01-2022 CULTURE URINE Isolate [...] Trimethoprim/Sulfamethoxa zole <=20 S F Normal [facility] Comment on above: Performed By: #### P TT, PT #### [facility] [address] [place] [address] Dr. Jaja Meadows UA RANDOM W/MICROSCOPICon BACTERIA LARGE Abnormal NONE SEEN [facility] Comment on above: Performed By: #### C VDTBH #### [facility] [address] [place] [address] Dr. Jaja Meadows Bilirubin Ql (U) Negative Normal NEGATIVE [facility] Comment on above: Performed By: #### C VDTBH #### [facility] [address] [place] [address] Dr. Jaja Meadows CAST NONE SEEN Normal NONE SEEN [facility] Comment on above: Performed By: #### C VDTBH #### [facility] [address] [place] [address] Dr. Jaja Meadows Clarity (U) CLEAR Normal CLEAR [facility] Comment on above: Performed By: #### C VDTBH #### [facility] [address] [place] [address] Dr. Jaja Meadows Color (U) LT. YELLOW Normal YELLOW [facility] Comment on above: Performed By: #### C VDTBH #### [facility] [address] [place] [address] Dr. Jaja Meadows Crystals LM Nom (Urine sed) NONE SEEN Normal NONE SEEN [facility] Comment on above: Performed By: #### C VDTBH #### [facility] [address] [place] [address] Dr. Jaja Meadows Epithelial cells LM Ql (Urine sed) NONE SEEN Normal NONE SEEN /RARE [facility] Comment on above: Performed By: #### C VDTBH #### [facility] [address] [place] [address] Dr. Jaja Meadows Glucose Ql (U) Negative Normal NEGATIVE [facility] Comment on above: Performed By: #### C VDTBH #### [facility] [address] [place] [address] Dr. Jaja Meadows Hemoglobin Ql (U) TRACE-INTACT Abnormal NEGATIVE [facility] Comment on above: Performed By: #### C VDTBH #### [facility] [address] [place] [address] Dr. Jaja Meadows Ketones Ql (U) Negative Normal NEGATIVE [facility] [place] Comment on above: Performed By: #### C VDTBH #### [facility] [address] [place] [address] Dr. Jaja Meadows LEUKOCYTES MODERATE Abnormal NEGATIVE [facility] Comment on above: Performed By: #### C VDTBH #### [facility] [address] [place] [address] Dr. Jaja Meadows MUCOUS NONE SEEN Normal NONE SEEN [facility] Comment on above: Performed By: #### C VDTBH #### [facility] [address] [place] [address] Dr. Jaja Meadows Nitrite Ql (U) Positive Abnormal NEGATIVE [facility] Comment on above: Performed By: #### C VDTBH #### [facility] [address] [place] [address] Dr. Jaja Meadows pH (U) 7.0 [pH] Normal 5-9 [facility] Comment on above: Performed By: #### C VDTBH #### [facility] [address] [place] [address] Dr. Jaja Meadows RBC 0-2 Normal 0-2 [facility] Comment on above: Performed By: #### C VDTBH #### [facility] [address] [place] [address] Dr. Jaja Meadows SPEC GRAVITY 1.010 Normal 1.005-<=1. 025 [facility] Comment on above: Performed By: #### C VDTBH #### [facility] [address] [place] [address] Dr. Jaja Meadows UA PROTEIN Negative Normal NEGATIVE/ TRACE [facility] Comment on above: Performed By: #### C VDTBH #### [facility] [address] [place] [address] Dr. Jaja Meadows Urobilinogen Qn (U) 0.2 {Son'U}/dL Normal 0.2 - 1. 0 [facility] Comment on above: Performed By: #### C VDTBH #### [facility] [address] [place] [address] Dr. Jaja Meadows WBC 20-50 Abnormal NONE SEEN [facility] Comment on above: Performed By: #### C VDTBH #### [facility] [address] [place] [address] Dr. Jaja Meadows CBC AUTO DIFFon 04-14-2022 BASO # 0.0 103/ul Normal 0.0-0.1 [facility] Comment on above: Performed By: #### B MP #### [facility] [address] [place] [address] Dr. Jaja Meadows Basophils/100 WBC (Bld) 0.6 % Normal 0.2-2.0 [facility] Comment on above: Performed By: #### B MP #### [facility] [address] [place] [address] Dr. Jaja Meadows EO # 0.1 103/ul Normal 0.0-0.7 [facility] Comment on above: Performed By: #### B MP #### [facility] [address] [place] [address] Dr. Jaja Meadows Eosinophils/100 WBC (Bld) 2.2 % Normal 0.9-7.0 [facility] Comment on above: Performed By: #### B MP #### [facility] [address] [place] [address] Dr. Jaja Meadows Erythrocyte distribution width (RBC) [Ratio] 14.5 % Normal 11.0-15.0 [facility] Comment on above: Performed By: #### B MP #### [facility] [address] [place] [address] Dr. Jaja Meadows Hematocrit (Bld) [Volume fraction] 40.4 % Normal 36.0-48.0 [facility] Comment on above: Performed By: #### B MP #### [facility] [address] [place] [address] Dr. Jaja Meadows Hemoglobin (Bld) [Mass/Vol] 13.0 g/dL Normal 12.0-16.0 [facility] Comment on above: Performed By: #### B MP #### [facility] [address] [place] [address] Dr. Jaja Meadows IG # 0.05 10e3/ul Critically high 0.00-0.[address] [facility] Comment on above: Performed By: #### B MP #### [facility] [address] [place] [address] Dr. Jaja Meadows IG % 0.8 % Critically high 0.0-0.5 [facility] Comment on above: Performed By: #### B MP #### [facility] [address] [place] [address] Dr. Jaja Meadows LYMPH # 2.1 103/ul Normal 1.2-3.8 [facility] Comment on above: Performed By: #### B MP #### [facility] [address] [place] [address] Dr. Jaja Meadows Lymphocytes/100 WBC (Bld) 33.0 % Normal 20.5-60.0 [facility] Comment on above: Performed By: #### B MP #### [facility] [address] [place] [address] Dr. Jaja Meadows MANUAL DIFF REQ NO Normal [facility] Comment on above: Performed By: #### B MP #### [facility] [address] [place] [address] Dr. Jaja Meadows MCH (RBC) [Entitic mass] 30.7 pg Normal 26.7-34.0 [facility] Comment on above: Performed By: #### B MP #### [facility] [address] [address] [address] Jaja Meadows MCHC (RBC) [Mass/Vol] 32.2 g/dL Normal 29.9-35.2 [facility] Comment on above: Performed By: #### B MP #### [facility] [address] [address] [address] Jaja Meadows MCV (RBC) [Entitic vol] 95.5 fL Normal 81.0-99.0 [facility] Comment on above: Performed By: #### B MP #### [facility] [address] [address] [address] Jaja Meadows MONO # 0.6 103/ul Normal 0.3-0.8 [facility] Comment on above: Performed By: #### B MP #### [facility] [address] [place] [address] Dr. Jaja Meadows Monocytes/100 WBC (Bld) 9.6 % Normal 1.7-12.0 [facility] Comment on above: Performed By: #### B MP #### [facility] [address] [place] [address] Dr. Jaja Meadows NEUT # 3.4 103/ul Normal 1.4-6.5 [facility] Comment on above: Performed By: #### B MP #### [facility] [address] [place] [address] Dr. Jaja Meadows Neutrophils/100 WBC (Bld) 53.8 % Normal 43.0-75.0 [facility] Comment on above: Performed By: #### B MP #### [facility] [address] [address] [address] Jaja Meadows Platelet mean volume (Bld) [Entitic vol] 9.5 fL Normal 9.5-13.5 [facility] Comment on above: Performed By: #### B MP #### [facility] [address] [address] [address] Jaja Meadows PLT 233 103/ul Normal 150-450 [facility] Comment on above: Performed By: #### B MP #### [facility] [address] [place] [address] Dr. Jaja Meadows RBC 4.23 106/ul Normal 4.20-5.40 [facility] Comment on above: Performed By: #### B MP #### [facility] [address] [place] [address] Dr. Jaja Meadows WBC 6.3 103/ul Normal 4.0-11.0 [facility] Comment on above: Performed By: #### B MP #### [facility] [address] [place] [address] Dr. Jaja Meadows CRPon 04-14-2022 CRP [Mass/Vol] mg/L Normal <=1.0 [facility] [place] Comment on above: Performed By: #### C VDTBH #### [facility] [address] [place] [address] Dr. Jaja Meadows PROF 14(COMP METB)on 022 Albumin [Mass/Vol] 3.5 g/dL Normal 3.4-5.0 [facility] Comment on above: Performed By: #### C VDTBH #### [facility] [address] [place] [address] Dr. Jaja Meadows Albumin/Globulin [Mass ratio] 1.1 {ratio} Normal [facility] Comment on above: Performed By: #### C VDTBH #### [facility] [address] [place] [address] Dr. Jaja Meadows ALP [Catalytic activity/Vol] 65 U/L Normal 46-116 [facility] Comment on above: Performed By: #### C VDTBH #### [facility] [address] [place] [address] Dr. Jaja Meadows ALT [Catalytic activity/Vol] 22 U/L Normal 14-59 [facility] Comment on above: Performed By: #### C VDTBH #### [facility] [address] [place] [address] Dr. Jaja Meadows Anion gap [Moles/Vol] 9.0 mmol/L Normal [facility] Comment on above: Performed By: #### C VDTBH #### [facility] [address] [address] [address] Jaja Meadows AST [Catalytic activity/Vol] 18 U/L Normal 15-37 [facility] Comment on above: Performed By: #### C VDTBH #### [facility] [address] [address] [address] Jaja Meadows Bilirubin [Mass/Vol] 0.5 mg/dL Normal 0.2-1.0 [facility] Comment on above: Performed By: #### C VDTBH #### [facility] [address] [address] [address] Jaja Meadows Calcium [Mass/Vol] 8.7 mg/dL Normal 8.5-10.1 [facility] Comment on above: Performed By: #### C VDTBH #### [facility] [address] [address] [address] Jaja Meadows Chloride [Moles/Vol] 105 mmol/L Normal 98-107 [facility] Comment on above: Performed By: #### C VDTBH #### [facility] [address] [address] [address] Jaja Meadows CO2 [Moles/Vol] 30.8 mmol/L Normal 21.0-32.0 [facility] Comment on above: Performed By: #### C VDTBH #### [facility] [address] [address] [address] Jaja Meadows Creatinine [Mass/Vol] 1.05 mg/dL Critically high 0.55-1.02 [facility] Comment on above: Performed By: #### C VDTBH #### [facility] [address] [address] [address] Jaja Meadows EGFR-AF LATVIAN >60 Normal >=60 [facility] Comment on above: Performed By: #### C VDTBH #### [facility] [address] [address] [address] Jaja Meadows EGFR-NON AF LATVIAN 50 mL/min/1.73m2 Critically low >=60 [facility] Comment on above: Performed By: #### C VDTBH #### [facility] [address] [address] [address] Jaja Meadows Globulin (S) [Mass/Vol] 3.1 g/dL Normal [facility] Comment on above: Performed By: #### C VDTBH #### [facility] [address] [address] [address] Jaja Meadows Glucose [Mass/Vol] 76 mg/dL Normal 74-106 [facility] Comment on above: Performed By: #### C VDTBH #### [facility] [address] [address] [address] Jaja Meadows Potassium [Moles/Vol] 3.8 mmol/L Normal 3.5-5.1 [facility] Comment on above: Performed By: #### C VDTBH #### [facility] [address] [address] [address] Jaja Meadows Protein [Mass/Vol] 6.6 g/dL Normal 6.4-8.2 [facility] Comment on above: Performed By: #### C VDTBH #### [facility] [address] [address] [address] Jaja Meadows Sodium [Moles/Vol] 141 mmol/L Normal 136-145 [facility] Comment on above: Performed By: #### C VDTBH #### [facility] [address] [address] [address] Jaja Meadows Urea nitrogen [Mass/Vol] 25.0 mg/dL Critically high 7.0-18.0 [facility] Comment on above: Performed By: #### C VDTBH #### [facility] [address] [address] [address] Jaja Meadows Urea nitrogen/Creatinine [Mass ratio] 23.8 mg/mg Normal [facility] Comment on above: Performed By: #### C VDTBH #### [facility] [address] [address] [address] Jaja Meadows SED RATE [facility] 2021 SED RATE 5 mm/hr Normal <=30 [facility] Comment on above: Performed By: #### P TT, PT #### [facility] [address] [address] [address] Jaja Meadows Patient Educationon 12-08-19 Patient [...] Follow these instructions at home: ? Take nard-vgw-ogsudbk and prescription medicines only as told by [...] 11/05/2016 Document Revised: 05/23/2019 Document Reviewed: 05/23/2019 [employer] Patient Education ? 2019 [employer]. [facility] Urology Phone Visit- Telehea lthon 12-08-2021 Urology Phone Visit- Telehealth Chief Complaint 6 month follow up. Phone Visit HPI Staff Milind is a 86 year old [...] baths & hot tubs, avoid any scented M[employer]ING/POLISHING [employer]PER[employer] products, urinate after sexual activity, etc) Ordered: Telephone Est 11 to 20 minutes [id number] 2. Urethral stricture (N35.919: Unspecified urethral stricture, male, unspecified site) good steady stream. no complaints. offered f/u but pt prefers PRN Ordered: Telephone Est 11 to 20 minutes [id number] This visit was conducted via phone communications from my office due to the restrictions of the COVID-19 pandemic. No physical exam was conducted due to audio only communication with the patient located at [address] [place], [place] [address]UE [place] [phone], with no one else. If it is [...] SARS-CoV-2 (COVID-19) Ad26 vaccine 01/02/2021 Recorded Normal [facility] Comment on above: Result Comment: Elec tronically Signed By: HALINA KENDRICK PA-C.br\Date and Time Signed: 12/08/21 10:54 EST Social History Date Type Detail Facility Start: 03-11-2024 End: 03-21-2024 Exposure to SARS-CoV-2 (event) Not sure [facility] Start: 07-05-2023 End: 03-21-2024 Caffeine use Caffeine use -[facility] 250 DO Work Phone: Comment on above: iced coffee occasion ally, a little soda daily; Start: 07-05-2023 End: 03-21-2024 Sex Assigned At [facility] [employer] Other Start: 07-05-2023 End: 03-21-2024 Alcohol intake Lifetime non-drinker (finding) [facility] Start: 04-07-2023 End: 03-10-2024 Tobacco smoking status NHIS Never smoked tobacco [facility] Start: 04-07-2023 End: 03-21-2024 Tobacco use and exposure Smokeless tobacco non-user [facility] Start: 1935 Sex Assigned At Not on file [facility] Start: 1935 Sex Assigned At Female [facility] Tobacco smoking status [facility] Tobacco smoking consumption unknown [facility] Vital Signs Date Time Vital Sign Value Performing Clinician Facility 04-19-2024 13:21-0400 Body height 157.48 cm MD Aravind Jackson Jr Work Phone: [facility] 04-19-2024 13:21-0400 Body mass index (BMI) [Ratio] 23 kg/m2 MD Aravind Jackson Jr Work Phone: [facility] 04-19-2024 13:21-0400 Body weight 57.15 kg MD Aravind Jackson Jr Work Phone: [facility] 04-19-2024 13:21-0400 Diastolic blood pressure 77 mm[Hg] MD Aravind Jackson Jr Work Phone: [facility] 04-19-2024 13:21-0400 Heart rate 79 /min MD Aravind Jackson Jr Work Phone: [facility] 04-19-2024 13:21-0400 Systolic blood pressure 113 mm[Hg] MD Aravind Jackson Jr Work Phone: [facility] [facility]21-2024 10:53-0400 Body height 154.9 cm Esteban Pineda MICROSCOPIST-INFORMATION AND DATA ARCHITECT ANALYST Work Phone: [facility] 03-21-2024 10:53-0400 Body mass index (BMI) [Ratio] 23.88 kg/m2 Esteban Pineda MICROSCOPIST-INFORMATION AND DATA ARCHITECT ANALYST Work Phone: [facility] 03-21-2024 10:53-0400 Body weight 57.34 kg Esteban Edwin MICROSCOPIST-INFORMATION AND DATA ARCHITECT ANALYST Work Phone: [facility] 03-21-2024 10:53-0400 Diastolic blood pressure 70 mm[Hg] Esteban Pineda MICROSCOPIST-INFORMATION AND DATA ARCHITECT ANALYST Work Phone: [facility] 03-21-2024 10:53-0400 Heart rate 68 /min Esteban Pineda MICROSCOPIST-INFORMATION AND DATA ARCHITECT ANALYST Work Phone: [facility] 03-21-2024 10:53-0400 Systolic blood pressure 110 mm[Hg] Esteban Pineda MICROSCOPIST-INFORMATION AND DATA ARCHITECT ANALYST Work Phone: [facility] 03-14-2024 14:13-0400 Body temperature 97.7 [degF] MD Aravind Jackson Jr Work Phone: [facility] 03-14-2024 14:13-0400 Diastolic blood pressure 75 mm[Hg] MD Aravind Jackson Jr Work Phone: [facility] 03-14-2024 14:13-0400 Heart rate 79 /min MD Aravind Jackson Jr Work Phone: [facility] 03-14-2024 14:13-0400 Respiratory rate 24 /min MD Aravind Jackson Jr Work Phone: [facility] 03-14-2024 14:13-0400 SaO2% (BldA) [Mass fraction] 94 % MD Aravind Jackson Jr Work Phone: [facility] 03-14-2024 14:13-0400 Systolic blood pressure 118 mm[Hg] MD Aravind Jackson Jr Work Phone: [facility] 03-14-2024 06:00-0400 Body weight 57.9 kg MD Aravind Jackson Jr Work Phone: [facility] 03-12-2024 14:40-0400 Body height 154.94 cm MD Aravind Jackson Jr Work Phone: [facility] 03-12-2024 03:00-0400 Inhaled oxygen flow rate 1 L/min MD Aravind Jackson Jr Work Phone: [facility] 03-09-2024 23:00-0400 Body temperature 96.5 [degF] MD Aravind Jackson Jr Work Phone: [facility] 03-09-2024 23:00-0400 Diastolic blood pressure 78 mm[Hg] MD Aravind Jackson Jr Work Phone: [facility] 03-09-2024 23:00-0400 Heart rate 77 /min MD Aravind Jackson Jr Work Phone: [facility] 03-09-2024 23:00-0400 Inhaled oxygen flow rate 3 L/min MD Aravind Jackson Jr Work Phone: [facility] 03-09-2024 23:00-0400 Respiratory rate 16 /min MD Aravind Jackson Jr Work Phone: [facility] 03-09-2024 23:00-0400 SaO2% (BldA) [Mass fraction] 94 % MD Aravind Jackson Jr Work Phone: [facility] 03-09-2024 23:00-0400 Systolic blood pressure 127 mm[Hg] MD Aravind Jackson Jr Work Phone: [facility] 03-09-2024 22:37-0400 Body height 154.94 cm MD Aravind Jackson Jr Work Phone: [facility] 03-09-2024 22:37-0400 Body weight 56.9 kg MD Aravind Jackson Work Phone: [facility] 02-09-2024 13:33-0400 Body height 154.94 cm [facility] 02-09-2024 13:33-0400 Body mass index (BMI) [Ratio] 24.5 kg/m2 [facility] 02-09-2024 13:33-0400 Body weight 59.02 kg [facility] 02-09-2024 13:33-0400 Diastolic blood pressure 68 mm[Hg] [facility] 02-09-2024 13:33-0400 Heart rate 85 /min [facility] 02-09-2024 13:33-0400 SaO2% (BldA) [Mass fraction] 93 % [facility] 02-09-2024 13:33-0400 Systolic blood pressure 120 mm[Hg] [facility] 11-22-2023 13:15-0500 Body height 154.94 cm Sara Blake Other [facility] 11-22-2023 13:15-0500 Body mass index (BMI) [Ratio] 24.86 kg/m2 Sara Blake Other [facility] Other 11-22-2023 13:15-0500 Body weight 59.69 kg Sara Blake Other [facility] 11-22-2023 13:15-0500 Diastolic blood pressure 72 mm[Hg] Sara Blake Other [facility] 11-22-2023 13:15-0500 Systolic blood pressure 106 mm[Hg] Sara Blake Other [facility] 10-27-2023 13:30-0500 Body height 154.94 cm Sara Blake Other [facility] Other 10-27-2023 13:30-0500 Body mass index (BMI) [Ratio] 24.83 kg/m2 Sara Blake Other [facility] Other 10-27-2023 13:30-0500 Body weight 59.6 kg Sara Blake Other [facility] Other 10-27-2023 13:30-0500 Diastolic blood pressure 77 mm[Hg] Sara Blake Other [facility] Other 10-27-2023 13:30-0500 Systolic blood pressure 112 mm[Hg] Sara Blake Other [facility] Other 08-11-2023 13:30-0400 Body height 154.94 cm Sara Blake Other [facility] Other 08-11-2023 13:30-0400 Body mass index (BMI) [Ratio] 25.85 kg/m2 Sara Blake Other [facility] Other 08-11-2023 13:30-0400 Body weight 62.05 kg Sara Blake Other [facility] Other 08-11-2023 13:30-0400 Diastolic blood pressure 84 mm[Hg] Sara Blake Other [facility] Other 08-11-2023 13:30-0400 Systolic blood pressure 148 mm[Hg] Sara Blake Other [facility] Other 07-05-2023 12:52-0400 Body height 154.9 cm Kahlil Wakefield PA-C Work Phone: [employer] 07-05-2023 12:52-0400 Body mass index (BMI) [Ratio] 26.45 kg/m2 Kahlil Wakefield PA-C Work Phone: [employer] 07-05-2023 12:52-0400 Body temperature 98.2 [degF] Kahlil Wakefield PA-C Work Phone: [facility] 07-05-2023 12:52-0400 Body weight 63.5 kg Kahlil Wakefield PA-C Work Phone: [facility] 12-28-2022 15:12-0500 Body height 154.94 cm Sara Blake Work Phone: [facility] 250 DO Work Phone: 12-28-2022 15:12-0500 Body mass index (BMI) [Ratio] 24.56 kg/m2 Sara Blake Work Phone: [facility] 250 DO Work Phone: 12-28-2022 15:12-0500 Body surface area Derived from formula 1.57 m2 Sara Blake Work Phone: [facility] 250 DO Work Phone: 12-28-2022 15:12-0500 Body weight 58.97 kg Sara Blake Work Phone: [facility] 250 DO Work Phone: 12-28-2022 15:12-0500 Diastolic blood pressure 62 mm[Hg] Sara Blake Work Phone: [facility] 250 DO Work Phone: 12-28-2022 15:12-0500 Heart rate 58 /min Sara Blake Work Phone: [facility] 250 DO Work Phone: 12-28-2022 15:12-0500 Systolic blood pressure 110 mm[Hg] Sara Blake Work Phone: [facility] 250 DO Work Phone: 11-15-2022 14:30-0500 Body height 154.94 cm Sara Blake Other [facility] Other 11-15-2022 14:30-0500 Body mass index (BMI) [Ratio] 24.18 kg/m2 Saar Blake Other [facility] Other 11-15-2022 14:30-0500 Body weight 58.06 kg Sara Blake Other [facility] Other 11-15-2022 14:30-0500 Diastolic blood pressure 70 mm[Hg] Sara Blake Other [facility] Other 11-15-2022 14:30-0500 Systolic blood pressure 124 mm[Hg] Sara Blake Other [facility] Other 06-07-2022 10:45-0400 65 1 Sara Blake Work Phone: [facility] 250 DO Work Phone: Comment on above: [id number] 05-19-2022 12:17-0400 Body height 154.94 cm Sara Blake Work Phone: [employer] [employer] 250 DO Work Phone: 05-19-2022 12:17-0400 Body mass index (BMI) [Ratio] 23.24 kg/m2 Sara Blake Work Phone: [facility] [employer] 250 DO Work Phone: 05-19-2022 12:17-0400 Body surface area Derived from formula 1.54 m2 Sara Blake Work Phone: [facility] [employer] 250 DO Work Phone: 05-19-2022 12:17-0400 Body weight 55.79 kg Sara Blake Work Phone: [facility] 250 DO Work Phone: 05-19-2022 12:17-0400 Diastolic blood pressure 69 mm[Hg] Sara E Hayden Work Phone: [facility] 250 DO Work Phone: 05-19-2022 12:17-0400 Heart rate 51 /min Sara Parekh Hayden Work Phone: [facility] 250 DO Work Phone: 05-19-2022 12:17-0400 Systolic blood pressure 121 mm[Hg] Sara E Hayden Work Phone: [facility] 250 DO Work Phone: Functional Status Date Assessment Result Facility 03-14-2024 Functional status Patient at Baseline [facility] Work Phone: 03-09-2024 Functional status Patient Not at Baseline [facility] Work Phone: Mental Status Date Assessment Result Facility 03-14-2024 Cognitive function Cognitive Sta tus Patient at Baseline [facility] Work Phone: 03-09-2024 Cognitive function Cognitive Sta tus Patient at Baseline [facility] Work Phone: Clinical Notes 11-15-2022 to 03-22-2024 [...] and cozaar. March 09, [address] [facility] Cardiac cath: LVEF 35% with classic apical [...] of weeks. Appears euvolemic on exam today. [facility] Work Phone: 03-22-2024 Miscellaneous Notes Associated Problem(s): Takotsubo syndrome April 2022 presented with Takotsubo CM (at time of husbands ) with normalized EF 65% May 2022. Was on coreg and cozaar. March 09, [address] [facility] Cardiac cath: LVEF 35% with classic apical [...] on exam today. documented in this encounter [facility] Work Phone: 03-21-2024 History of Presen t illness Narrative Chief Complaint 'she seems to be getting her strength back' Reason for Visit Patient presents to the office today for outpatient follow-up for hospital follow-up. Last evaluated in clinic by Dr. Lawson December 2022. February 2024: Patient was recently hospitalized at [facility]. The patient was seen in Cardiology consult with subsequent cardiovascular management by [facility]. Hospitalization records have been reviewed. Reason for Cardiology Consultation: Chest pain, EKG changes. Consulting Steward/Stewardess Smoke Room: Dr. Lawson Cardiovascular testing: Cardiac catheterization and [...] and cozaar. March 09, [address] [facility] Cardiac cath: LVEF 35% with classic apical [...] Dr. Lawson 9 months Esteban Pineda MSN, MICROSCOPIST-INFORMATION AND DATA ARCHITECT ANALYST, [facility] Please excuse any errors in grammar or translation related to this dictation. Voice recognition software was utilized to prepare this document. documented in this encounter [facility] Work Phone: 03-21-2024 Instructions SHELLY Nassar - [...] Lawson 9 months documented in this encounter [facility] Work Phone: 03-14-2024 Progress note Note Date/Time March 14, 2024 8:41a m [facility] [address] [place] [address] Pulmonology Progress Note Signed Patient: Milind Tate MR#: [id number] : 1935 Acct:[id number] Age/Sex: 88 / F Adm Date: 4 Loc: Room: 9I8644-9 Type: DIS IN Attending Dr: Everett Lawson [...] perspective. Documented By: Kartik Vilchis MD 4 [id number] Signed By: <Electronically signed by MD Kartik Vilchis> 03/14/24 [address] [facility] Work Phone: 1(572) 295-336105-21-2024 Progress note Author Kartik Vilchis [facility] March 13, 2024 1:21pm Note Date/Time March 13, 2024 1:20p m [facility] [address] [place] [address] Pulmonology Progress Note Signed Patient: Milind Tate MR#: [id number] : 1935 Acct:[id number] Age/Sex: 88 / F Adm Date: 4 Loc: Room: [address] [place] [address] Type: ADM IN Attending Dr: Everett Lawson [...] <Electronically signed by MD Kartik Vilchis> 03/13/24 [address] [facility] Work Phone: 1(278) 657-332105-21-2024 Progress note Author Everett Lawson [facility] March 13, 2024 11:47am Note Date/Time March 13, 2024 11:47 am [facility] [address] [place] [address] Cardiology Progress Note Signed Patient: Milind Tate MR#: [id number] : 1935 Acct:[id number] Age/Sex: 88 / F Adm Date: 4 Loc: Room: [address] [place] [address] Type: ADM IN Attending Dr: Everett Lawson [...] <Electronically signed by Everett Lawson DO> 03/13/[address] [facility] Work Phone: 1(893) 683-264805-20-2024 Progress note Author Kartik Vilchis [facility] March 12, 2024 11:50am Note Date/Time March 12, 2024 11:50 am [facility] [address] [place] [address] Pulmonology Progress Note Signed Patient: Milind Tate MR#: [id number] : 1935 Acct:[id number] Age/Sex: 88 / F Adm Date: 4 Loc: Room: [address] [place] [address] Type: ADM IN Attending Dr: Everett Lawson DO Copies to: ~ Date of Service: 03/12/2024 Subjective Subjective Narrative: Patient has no complaints of chest pain or dyspnea. She knows she is at [facility] but is unaware of the city nor [...] <Electronically signed by MD Kartik Vilchis> 03/12/24 [address] [facility] Work Phone: 1(298) 538-833705-20-2024 Progress note Author Everett Lawson [facility] March 12, 2024 11:09am Note Date/Time March 12, 2024 11:09 am [facility] [address] [place] [address] Cardiology Progress Note Signed Patient: Milind Tate MR#: [id number] : 1935 Acct:[id number] Age/Sex: 88 / F Adm Date: 4 Loc: Room: [address] [place] [address] Type: ADM IN Attending Dr: Everett Lawson [...] normal. I have spoken to her primary delivery mgr this morning, Dr. Lawson, who agrees with the plan above. Monitor today. Ambulate ad porsha. Will get physical therapy to evaluate for discharge recommendations. See subjective above. Discharge when possible per physical therapy/Occupational Therapy or acceptance to rehab Documented By: Everett Lawson DO 03/12/241106 Signed By: <Electronically signed by Everett Lawson DO> 03/12/24 [address] [facility] Work Phone: 1(758) 867-819405-19-2024 Progress note Author Aj Smith [facility] March 11, 2024 7:55pm Note Date/Time March 11, 2024 9:22a m [facility] [address] [place] [address] Cardiology Progress Note Signed with Addenda Patient: Milind Tate MR#: [id number] : 1935 Acct:[id number] Age/Sex: 88 / F Adm Date: 4 Loc: Room: [address] [place] [address] Type: ADM IN Attending Dr: Everett Lawson [...] Cloudy A Urine pH 5.5 Ur Specific [place] 1.031 H Urine Protein Negative Urine Glucose [...] normal. I have spoken to her primary delivery mgr this morning, Dr. Lawson, who agrees with the plan above. Monitor today. Ambulate ad porsha. Will get physical therapy to evaluate for discharge recommendations. See subjective above. Plan to D/c today if feasible. Follow-up with Dr. Lawson as outpatient in 1-2 weeks. Documented By: Aj Smith MD 02/21 Signed By: <Electronically signed by Aj Smith MD> 03/11/2429 [facility] Work Phone: 1(712) 383-515305-19-2024 Progress note Author Pinyk Nicole [facility] March 11, 2024 2:35pm Note Date/Time March 11, 2024 2:33p m [facility] [address] [place] [address] Pulmonology Progress Note Signed Patient: Milind Tate MR#: [id number] : 1935 Acct:[id number] Age/Sex: 88 / F Adm Date: 4 Loc: Room: [address] [place] [address] Type: ADM IN Attending Dr: Everett Lawson [...] cardiology Documented By: Pinky Nicole MD 03/11/24 1432 Signed By: <Electronically signed by Pinky Nicole MD> 03/11/24 [address] [facility] Work Phone: 1(489) 146-102905-18-2024 Progress note Author Aj Smith [facility] March 10, 2024 4:02pm Note Date/Time March 10, 2024 3:58p m [facility] [address] [place] [address] Cardiology Progress Note Signed with Addenda Patient: Milind Tate MR#: [id number] : 1935 Acct:[id number] Age/Sex: 88 / F Adm Date: 4 Loc: Room: [address] [place] [address] Type: ADM IN Attending Dr: Everett Lawson DO Copies to: ~ ADDENDUM1 Physical Exam: General: NAD, A&Ox3, Elderly Head, Eyes: NC/AT, EOMI Lungs: Good air entry; No crackles Heart: S1S2 normal, Regular rhythm, No murmurs Extremities: No edema. Abdomen: Soft, non-tender, non-distended. Neuro: CN grossly intact, No focal deficits. Addendum Documented By: Aj Smith MD 03/10/24 1602 Addendum Signed By: <Electronically signed by Aj [...] % (Auto) 54.7 Lymph % (Auto) 35.7 [place] % (Auto) 7.5 Eos % (Auto) 1.2 Baso % (Auto) 0.9 Nucleat RBC Rel Count 0.1 Neut # (Auto) 6.5 Lymph # (Auto) 4.2 [place] # (Auto) 0.9 H Eos # (Auto) [...] MPV Neut % (Auto) Lymph % (Auto) [place] % (Auto) Eos % (Auto) Baso % (Auto) Nucleat RBC Rel Count Neut # (Auto) Lymph # (Auto) [place] # (Auto) Eos # (Auto) Baso # [...] <Electronically signed by Aj Smith MD> 03/10/[address] [facility] Work Phone: 1(236) 618-745405-18-2024 Consult note Author Pinky Nicole [facility] March 10, 2024 12:34pm Note Date/Time March 10, 2024 12:28 pm [facility] [address] [place] [address] Pulmonology Consult Note Signed Patient: Milind Tate MR#: [id number] : 1935 Acct:[id number] Age/Sex: 88 / F Adm Date: 4 Loc: Room: [address] [place] [address] Type: ADM IN Attending Dr: Everett Lawson DO Copies to: MD Sara Ware MD W Scott Sheldon, DO~ HPI Date/Time of Consultation: Date of Service: 03/10/2024 Time of Service: 12:27 Consulting Provider: Pinky Nicole Requesting Provider: Everett Lawson Reason for Consult: Critical care management, ST elevation [place], Takotsubo History of Present Illness History of present illness: This is a 88-year-old female with past medical history significant for hypertension, dyslipidemia, dementia, anxiety and depression, coronary artery disease. She presented to the hospital with chest pain. She was taken to the [facility] for ST elevation [place] and showed single-vessel 50% LAD stenosis and recurrent Takotsubo cardiomyopathy ejection fraction 35%. Patient was admitted to the intensive care unit after the procedure. She is hemodynamically stable. She is anxious she stated that she was having abdominal pain earlier today not now. She is poor historian Review of Systems Review of Systems Unobtainable due to mental condition [facility] Medical History (Updated 03/10/24 @ [...] (Unknown, Verified 02/09/24 13:40) Nausea, muscle weakness Oooxcql-RXM-JpR Reductase Inhibitor Allergy (Unknown, Verified 02/09/24 13:40) [...] #30 tabs 05/07/22 [Rx Confirmed 03/09/24] omega 2-dsb-nng-fish oil 1,000 mg (120 mg-180 mg) capsule [...] <Electronically signed by Pinky Nicole MD> 03/10/24 [address] [facility] Work Phone: 1(111) 669-226905-17-2024 History and physical note Author Everett Lawson [facility] March 09, 2024 9:52pm Note Date/Time March 09, 2024 9:27p m [facility] [address] [place] [address] Cardiology H&P Signed Patient: Milind Tate MR#: [id number] : 1935 Acct:[id number] Age/Sex: 88 / F Adm Date: 4 Loc: CL Room: Type: [facility] Attending Dr: Everett Lawson DO Copies to: MD Everett Grissom DO~ Date of Service: 03/09/2024 Cardiology HPI History of Present Illness Chief complaint: Acute anterolateral STEMI HPI: Ms. Tate is a 88 year old female admitted in transit from [facility] with acute anterolateral STEMI. ECG transmitted from [facility] confirms anterolateral ST elevation injury [...] time were devoted to the ER staff, [facility] staff, nursing staff, patient and family both pre and post procedurallyand reviewing prearrival ECGs and discussion with ER attending. Review of Systems Review of Systems All other systems reviewed & are negative unless noted below or in HPI Constitutional Constitutional: Reports as per HPI Cardiovascular Cardiovascular: Reports as per HPI and Reports chest pain at rest [facility] Medical History (Updated 03/09/24 @ [...] (Unknown, Verified 02/09/24 13:40) Nausea, muscle weakness Ztpsxyo-BDV-MlN Reductase Inhibitor Allergy (Unknown, Verified 02/09/24 13:40) [...] #30 tabs 05/07/22 [Rx Confirmed 03/09/24] omega 1-qfl-qqt-fish oil 1,000 mg (120 mg-180 mg) capsule [...] x10E3/uL Lymph # (Auto) 4.2 (1.00-4.8) x10E3/uL [place] # (Auto) 0.9 H (0.0-0.8) x10E3/uL Eos # (Auto) 0.1 (0.0-0.45) x10E3/uL Baso # (Auto) 0.1 (0.0-0.2) x10E3/uL Intake and Output 03/09/24 03/09/24 03/09/24 07:59 15:59 23:59 Other: Weight 61 kg Patient Weight 03/09/24 23:59 Weight 61 kg EKG Interpretations EKG EKG results cardiology: sinus rhythm [place], pacemaker, normal Myocardial infarction: anterior [place] (acute or recent) A&P - Cardiology (1) [...] <Electronically signed by Everett Lawson DO> 03/09/242151 [facility] Work Phone: 1(720) 485-521305-17-2024 History and physical note Author Everett Lawson [facility] March 09, 2024 9:52pm Note Date/Time March 09, 2024 9:27p [facility] [address] [place] [address] Cardiology H&P Signed Patient: Milind Tate MR#: [id number] : 1935 Acct:[id number] Age/Sex: 88 / F Adm Date: 4 Loc: Room: Type: [facility] Attending Dr: Everett Lawson DO Copies to: MD Everett Grissom DO~ Date of Service: 03/09/2024 Cardiology HPI History of Present Illness Chief complaint: Acute anterolateral STEMI HPI: Ms. Tate is a 88 year old female admitted in transit from [facility] with acute anterolateral STEMI. ECG transmitted from [facility] confirms anterolateral ST elevation injury current, upon arrival 2051, initial ECG confirms sinus rhythm with low [...] time were devoted to the ER staff, [facility] staff, nursing staff, patient and family both pre and post procedurallyand reviewing prearrival ECGs and discussion with ER attending. Review of Systems Review of Systems All other systems reviewed & are negative unless noted below or in HPI Constitutional Constitutional: Reports as per HPI Cardiovascular Cardiovascular: Reports as per HPI and Reports chest pain at rest [facility] Medical History (Updated 03/09/24 @ [...] (Unknown, Verified 02/09/24 13:40) Nausea, muscle weakness Ukbeglk-ERT-IqB Reductase Inhibitor Allergy (Unknown, Verified 02/09/24 13:40) [...] #30 tabs 05/07/22 [Rx Confirmed 03/09/24] omega 7-hpe-dyt-fish oil 1,000 mg (120 mg-180 mg) capsule [...] x10E3/uL Lymph # (Auto) 4.2 (1.00-4.8) x10E3/uL [place] # (Auto) 0.9 H (0.0-0.8) x10E3/uL Eos # (Auto) 0.1 (0.0-0.45) x10E3/uL Baso # (Auto) 0.1 (0.0-0.2) x10E3/uL Intake and Output 03/09/24 03/09/24 03/09/24 07:59 15:59 23:59 Other: Weight 61 kg Patient Weight 03/09/24 23:59 Weight 61 kg EKG Interpretations EKG EKG results cardiology: sinus rhythm [place], pacemaker, normal Myocardial infarction: anterior [place] (acute or recent) A&P - Cardiology (1) [...] <Electronically signed by Everett Lawson DO> 03/09/242151 [facility] Work Phone: 1(739) 489-464405-17-2024 [facility]* Encounter Date Diagnosis Assessment Notes Treatment Notes Treatment Clinical Notes Oct, Anxiety (ICD-10 - F41.9) Increased dose of citalopram. Increased frequency of alprazolam and added hydroxyzine. Oct, Advancing dementia (ICD-10 - F03.90) Continue followup w GLORIA Oct, SK (solar keratosis) (ICD-10 - L57.0) gave samples of cereve cream [facility] Other 01-30-2024 Evaluation note* Encounter Date Diagnosis Assessment Notes Treatment Notes Treatment Clinical Notes Oct, Anxiety (ICD-10 - F41.9) [facility] Other 01-22-2024 Evaluation note* Encounter Date Diagnosis Assessment Notes Treatment Notes Treatment Clinical Notes Oct, Anxiety (ICD-10 - F41.9) Oct, Moderate dementia without behavioral disturbance, psychotic disturbance, mood disturbance, or anxiety, unspecified dementia type (ICD-10 - F03.B0) [facility] Other 01-04-2024 Evaluation note* Encounter Date Diagnosis Assessment Notes Treatment Notes Treatment Clinical Notes Oct, Moderate dementia without behavioral disturbance, psychotic disturbance, mood disturbance, or anxiety, unspecified dementia type (ICD-10 - F03.B0) Discussed options and shared daughter's number w Minna and Extended family. Discussed [place] options exclusively as most family is here. [facility] Other 10-19-2023 Evaluation note* Encounter Date Diagnosis [...] forward results and note to their office. [facility] Other 09-12-2023 History of Present illness Narrative* [...] may call and cancel. [facility]* Encounter Date Diagnosis Assessment Notes Treatment Notes Treatment Clinical Notes Oct, Unilateral weakness (ICD-10 - R53.1) Discussed symptoms and problems at length with patient and daughter. We will add carotid ultrasound to the MRI that is scheduled for November 25 at [facility]. Discussed also initiating a referral to neurology. Daughter is not familiar with 1 in the [place] area at this time. We will find a convenient location in [facility] for further assessment. Discussed that [...] - M35.3) Oct, Coronary artery disease involving [place] coronary artery of [place] heart without angina pectoris (ICD-10 - I25.10) Patient under the care of cardiology. [place] Other Chief complaint Narrative - Reported* 86-year-old female who returns for transitions of care management visit following recent acute coronary syndrome and diagnosed with stress related cardiomyopathy. She witnessed the of her ; classic presentation from a clinical standpoint, with subsequent chest discomfort, non-ST elevation [place]. Subsequent catheterization revealed normal coronary arteries and [...] again in 6 months on same therapy [facility] 250 DO Work Phone: Chief complaint Narrative - Reported* 86-year-old female who returns for transitions of care management visit following recent acute coronary syndrome and diagnosed with stress related cardiomyopathy. She witnessed the of her ; classic presentation from a clinical standpoint, with subsequent chest discomfort, non-ST elevation [place]. Subsequent catheterization revealed normal coronary arteries and [...] again in 6 months on same therapy [facility] Work Phone: Consult note Author Pinky Nicole [facility] March 10, 2024 12:34pm Note Date/Time March 10, 2024 12:28 pm [facility] [address] [place] [address] Pulmonology Consult Note Signed Patient: Milind Tate MR#: [id number] : 1935 Acct:[id number] Age/Sex: 88 / F Adm Date: 4 Loc: Room: 0L7480-3 Type: ADM IN Attending Dr: Everett Lawson DO Copies to: MD Sara Ware MD W Scott Sheldon, DO~ HPI Date/Time of Consultation: Date of Service: 03/10/2024 Time of Service: 12:27 Consulting Provider: Pinky Nicole Requesting Provider: Everett Lawson Reason for Consult: Critical care management, ST elevation [place], Takotsubo History of Present Illness History of present illness: This is a 88-year-old female with past medical history significant for hypertension, dyslipidemia, dementia, anxiety and depression, coronary artery disease. She presented to the hospital with chest pain. She was taken to the [facility] for ST elevation [place] and showed single-vessel 50% LAD stenosis and recurrent Takotsubo cardiomyopathy ejection fraction 35%. Patient was admitted to the intensive care unit after the procedure. She is hemodynamically stable. She is anxious she stated that she was having abdominal pain earlier today not now. She is poor historian Review of Systems Review of Systems Unobtainable due to mental condition [facility] Medical History (Updated 03/10/24 @ [...] (Unknown, Verified 02/09/24 13:40) Nausea, muscle weakness Nagewpb-VCA-JjH Reductase Inhibitor Allergy (Unknown, Verified 02/09/24 13:40) [...] #30 tabs 05/07/22 [Rx Confirmed 03/09/24] omega 1-yko-cnp-fish oil 1,000 mg (120 mg-180 mg) capsule [...] and losartan Documented By: Pinky Nicole MD 03/10/247 Signed By: <Electronically signed by Pinky Nicole MD> 03/10/24 1234 [facility] Work Phone: Discharge summary Author Everett Lawson [facility] March 14, 2024 12:39pm Note Date/Time March 14, 2024 12:39 pm [facility] [address] [place] [address] Discharge Summary Signed Patient: Milind Tate MR#: [id number] : 1935 Acct:[id number] Age/Sex: 88 / F Adm Date: 4 Loc: Room: 7G9342-[address]: Everett Lawson DO Copies to: [...] Regular Additional Instructions: DISCHARGE INSTRUCTIONS FOR CARDIAC LAPIDARIST PROCEDURE: Heart Cath The following instructions have [...] cold, numb, blue or white, call the delivery mgr immediately. 4. ACTIVITY: You are advised to [...] bottle, follow the instructions on the bottle. [facility] is not responsible for incorrect prescription information [...] mg PO DAILY PRN (Reason: Headache) omega 6-ucl-xnp-fish oil 1,000 mg (120 mg-180 mg) capsule [...] APRN [Nurse Practitioner] - 03/21/24 11:00 am (PULL OVER for Dr Lawson @ [facility]) Exam Physical Exam Vital Signs: Temp Pulse [...] signed by Everett Lawson DO> 03/14/24 1239 [facility] Work Phone: Evaluation note* Diagnosis Unilateral weakness- Primary documented in this encounter [facility] noteNo [id number] m[facility]al Other Evaluation note* Diagnosis 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 Arthritis of carpometacarpal (CMC) joint of left thumb Arthritis of wrist, left Unspecified arthropathy, forearm [facility] Work Phone: Evaluation note* Diagnosis Onset Date Resolution Status Advancing dementia acute Anxiety acute Bilateral arm pain acute Acute coronary syndrome acut e Advancing dementia acute Takotsubo cardiomyopathy acu [facility] Work Phone: Evaluation note* Diagnosis Onset Date Resolution Status Advancing dementia acute Anxiety acute Bilateral arm pain acute Acute coronary syndrome acut e Advancing dementia acute Anxiety acute Hypertension acute Takotsubo cardiomyopathy acu [facility] Work Phone: Evaluation note* Diagnosis Takotsubo syndrome- Primary BMI 23.0-23.9, adult documented in this encounter [facility] Work Phone: Evaluation note* Diagnosis Onset Date Resolution Status Advancing dementia acute Anxiety acute Bilateral arm pain acute Advancing dementia acute Anxiety acute Hypertension acute ST elevation [place] (STEMI) acut e Takotsubo cardiomyopathy acu te Acute coronary syndrome reso lved Depression acute Hair loss acute Hypertension acute Hypomagnesemia acute UTI (urinary tract infection) acute [facility] Work Phone: History general Narrative - Reported* Type Description Date Medical History hypertension Medical History hyperlipidemia Surgical History appendectomy Surgical History cholecystectomy Surgical History hysterectomy Surgical History hernia repair Surgical History urethral dilation and cystoscop y Surgical History cataracts Hospitalization History abdominal pain [facility] Other Progress note Author Aj tyler [facility] March 10, 2024 4:02pm Note Date/Time March 10, 2024 3:58p m [facility] [address] [place] [address] Cardiology Progress Note Signed with Addenda Patient: Milind Tate MR#: [id number] : 1935 Acct:[id number] Age/Sex: 88 / F Adm Date: 4 Loc: Room: [address] [place] [address] Type: ADM IN Attending Dr: Everett Lawson [...] % (Auto) 54.7 Lymph % (Auto) 35.7 Cataño % (Auto) 7.5 Eos % (Auto) 1.2 Baso % (Auto) 0.9 Nucleat RBC Rel Count 0.1 Neut # (Auto) 6.5 Lymph # (Auto) 4.2 [place]ata[place] # (Auto) 0.9 H Eos # (Auto) [...] MPV Neut % (Auto) Lymph % (Auto) Cata[place] % (Auto) Eos % (Auto) Baso % (Auto) Nucleat RBC Rel Count Neut # (Auto) Lymph # (Auto) Cataño # (Auto) Eos # (Auto) Baso # [...] <Electronically signed by Aj Smith MD> 03/10/[address] [facility] Work Phone: Progress note Author Aj tyler [facility] March 11, 2024 7:55pm Note Date/Time March 11, 2024 9:22a m [facility] [address] [place] [address] Cardiology Progress Note Signed with Addenda Patient: Milind Tate MR#: [id number] : 1935 Acct:[id number] Age/Sex: 88 / F Adm Date: 4 Loc: Room: [address] [place] [address] Type: ADM IN Attending Dr: Everett Lawson [...] Cloudy A Urine pH 5.5 Ur Specific [place] 1.031 H Urine Protein Negative Urine Glucose [...] normal. I have spoken to her primary delivery mgr this morning, Dr. Lawson, who agrees with the plan above. Monitor today. Ambulate ad porsha. Will get physical therapy to evaluate for discharge recommendations. See subjective above. Plan to D/c today if feasible. Follow-up with Dr. Lawson as outpatient in 1-2 weeks. Documented By: Aj Smith MD 02/21 Signed By: <Electronically signed by Aj Smith MD> 03/11/24 0929 [facility] Work Phone: Progress note [facility] March 11, 2024 2:35pm Note Date/Time March 11, 2024 2:33p [facility] [address] [place] [address] Pulmonology Progress Note Signed Patient: Milind Tate MR#: [id number] : 1935 Acct:[id number] Age/Sex: 88 / F Adm Date: 4 Loc: Room: [address] [place] [address] Type: ADM IN Attending Dr: Everett Lawson [...] signed by Pinky Nicole MD> 03/11/[address] [facility] Work Phone: Progress note Author Everett Lawson [facility] March 12, 2024 11:09am Note Date/Time March 12, 2024 11:09 am [facility] [address] [place] [address] Cardiology Progress Note Signed Patient: Milind Tate MR#: [id number] : 1935 Acct:[id number] Age/Sex: 88 / F Adm Date: 4 Loc: Room: [address] [place] [address] Type: ADM IN Attending Dr: Everett Lawson [...] normal. I have spoken to her primary delivery mgr this morning, Dr. Lawson, who agrees with the plan above. Monitor today. Ambulate ad porsha. Will get physical therapy to evaluate for discharge recommendations. See subjective above. Discharge when possible per physical therapy/Occupational Therapy or acceptance to rehab Documented By: Everett Lawson DO 03/12/241106 Signed By: <Electronically signed by Everett Lawson DO> 03/12/249 [facility] Work Phone: Progress note Author Kartik Vilchis [facility] March 12, 2024 11:50am Note Date/Time March 12, 2024 11:50 am [facility] [address] [place] [address] Pulmonology Progress Note Signed Patient: Milind Tate MR#: [id number] : 1935 Acct:[id number] Age/Sex: 88 / F Adm Date: 4 Loc: Room: [address] [place] [address] Type: ADM IN Attending Dr: Everett Lawson DO Copies to: ~ Date of Service: 03/12/2024 Subjective Subjective Narrative: Patient has no complaints of chest pain or dyspnea. She knows she is at [facility] but is unaware of the city nor [...] <Electronically signed by MD Kartik Vilchis> 03/12/24 8625 [facility] Work Phone: Progress note Author W Renny [facility] March 13, 2024 11:47am Note Date/Time March 13, 2024 11:47 am [facility] [address] [place] [address] Cardiology Progress Note Signed Patient: Milind Tate MR#: [id number] : 1935 Acct:[id number] Age/Sex: 88 / F Adm Date: 4 Loc: Room: [address] [place] [address] Type: ADM IN Attending Dr: Everett Lawson [...] signed by Everett Lawson DO> 03/13/24 1147 [facility] Work Phone: Progress note Author Kartik Vilchis [facility] March 13, 2024 1:21pm Note Date/Time March 13, 2024 1:20p [facility] [address] [place] [address] Pulmonology Progress Note Signed Patient: Milind Tate MR#: [id number] : 1935 Acct:[id number] Age/Sex: 88 / F Adm Date: 4 Loc: Room: [address] [place] [address] Type: ADM IN Attending Dr: Everett Lawson [...] signed by MD Kartik Vilchis> 03/13/24 1321 [facility] Work Phone: Progress note Author Kartik Vilchis [facility] March 14, 2024 6:18pm Note Date/Time March 14, 2024 8:41a m [facility] [address] [place] [address] Pulmonology Progress Note Signed Patient: Milind Tate MR#: [id number] : 1935 Acct:[id number] Age/Sex: 88 / F Adm Date: 4 Loc: Room: [address] [place] [address] Type: DIS IN Attending Dr: Everett Lawson [...] perspective. Documented By: Kartik Vilchis MD 4 0840 Signed By: <Electronically signed by MD Kartik Vilchis> 03/14/24 6529 [facility] Work Phone: Summary Purpose Family History [...] Unilateral weakness Sara Blake MD [address] [place] [address] [place] [address] [facility] Neu[facility] Referral ID Status Reason Start Date Expiration Date V isits Requested Visits Authorized [id number] Authorized 11/17/2022 11/17/2023 1 1 Reason 01/24/23 @ 1:40 MR I and carotid US pending. Family appropriately concerned for stroke. Request Neurologist w [facility] in [facility]. Diagnosis 1 Unilateral weakness (R53.1) Referral Organization [facility] rustam Referring Provider First Name Sara Referring Provider Last Name Hayden Referring Provider Specialty Family [facility] Referred Organization [facility] Referred Address [address] [place] [id number] Referred Provider Specialty Neurology Referral Priority Routine Referral Appointment Date 2023-01-24 General Notes Ramya Quezada 10:17:43 AM >recieved today, insurance card and [facility] summary notes attached. Waiting on MRI and [...] and she is going to [facility] in [facility] Specialty Diagnoses / Procedures Referred By Tyree johns Referred To Contact Cardiology Diagnoses Takotsubo syndrome Procedures Transthoracic Echo Limited [place] ECHO TRANSTHORC R-T 2D W/WO M-MODE REC F-UP/LMTD [place] DOP ECHOCARD COLOR FLOW VELOCITY MAPPING [place] DOP ECHOCARD PULSE WAVE W/SPECTRAL F-UP/LMTD STD Esteban Pineda, MICROSCOPIST-INFORMATION AND DATA ARCHITECT ANALYST [address] [facility] [address], [address] [place] [id number] Referral ID Status Reason Start Date Expiration Date Visits Requested Visits Authorized [id number] Pending Review Perform Procedure 03/21/2024 03/21/2025 1 1 Specialty Diagnoses / Procedures Referred By Tyree johns Referred To Contact Cardiology Diagnoses Takotsubo syndrome Procedures Follow Up In Cardiology Esteban Pineda, MICROSCOPIST-INFORMATION AND DATA ARCHITECT ANALYST [address] [facility], [address] [place] [address] Ismael Lawson, DO [address] [facility], [address] [place] [address] Referral ID Status Reason Start Date Expiration Date V isits Requested Visits Authorized [id number] Authorized 03/21/2024 03/21/2025 1 1 Chief Complaint [...] pain Advancing dementia Anxiety Hypertension ST elevation [place] (STEMI) Takotsubo cardiomyopathy Acute coronary syndrome Depression Hair loss Hypertension Hypomagnesemia UTI (urinary tract infection) Additional Source Comments INFORMATION SOURCE (unrecogn ized section and content) DATE CREATED AUTHOR 02/03/2019 [facility] DATE CREATED AUTHOR AUTHOR'S ORGANIZ ATION 12/09/2021 [facility] DATE CREATED AUTHOR AUTHOR'S ORGANIZ ATION 06/18/2022 [facility] DATE CREATED AUTHOR AUTHOR'S ORGANIZ ATION 11/04/2022 [facility] DATE CREATED AUTHOR AUTHOR'S ORGANIZ ATION 12/30/2022 [facility] DATE CREATED AUTHOR AUTHOR'S ORGANIZ ATION 12/30/2022 [facility] DATE CREATED AUTHOR AUTHOR'S ORGANIZ ATION 02/06/2023 [facility] DATE CREATED AUTHOR AUTHOR'S ORGANIZ ATION 04/08/2023 [facility] DATE CREATED AUTHOR AUTHOR'S ORGANIZ ATION 07/06/2023 [facility] DATE CREATED AUTHOR AUTHOR'S ORGANIZ ATION 03/23/2024 [facility] DATE CREATED AUTHOR AUTHOR'S ORGANIZ ATION 04/23/2024 [facility] REASON FOR VISIT (unrecogniz ed section and content) Reason Comments New Patient Left wrist pain. DOI approx 4m. Pain varies Specialty Diagnoses / Procedures Referred By Tyree johns Referred To Contact Orthopaedics Diagnoses Left wrist pain Sara Blake MD [address] [place] [address] [place] [address] Kahlil Wakefield, KENIA [address] [place] [address] [address] Referral ID Status Reason Start Date Expiration Date V isits Requested Visits Authorized [id number] New Request 05/17/2023 06/10/2024 1 1 Reason Comments Follow-up TCM/frmc,Cath/stemi Care Teams (unrecognized sec tion and content) [employer] Relationship Specialty Start Date End Date Sara Blake MD [address] [place] [address] PCP - General Family Medicine 04/07/23 Team [...] 2023 Narda Franco Attending Provider Active Start: 2023 Team Status: Active Member Role Status [...] Care Provider Active Start: March 10, 2024 Everett Lawson DO Admit Provider, Oth er Provider Active Start: March 10, 2024 Pinky Nicole MD Other Provider Active Start: ay 2023 Aj Smith MD Attending Provider Active Start: March 10 [employer] Relationship Specialty Start Date End Date Sara Blake MD [address] [place] [address] PCP - General 03/29/19 Team Status: Active Member Role Status Dates Aravind Jackson Jr, MD Emergency Provider Active Start: March 10, 2024 End: March 14, 2024 Sara Blake MD Primary Care Provider Active Start: March 10, 2024 End: March 14, 2024 Everett Lawson DO Admit Provider, Oth er Provider [...] 2024 End: March 14, 2024 Everett Lawson DO Admit Provider, Oth er Provider [...] BE BASED ON THE PRIMARY CLINICAL RECORDS. [employer] provides no warranty or guarantee of the accuracy or completeness of information in this document.
[2024-05-25] MEDS: FAMOTIDINE/PF 20 MG/2 ML VIAL IV (23:35)
[2024-05-25] MEDS: ALPRAZOLAM 0.25 MG TABLET PO (23:35)
[2024-05-25] MEDS: ENOXAPARIN SODIUM 40 MG/0.4 ML SYRINGE SUBQ (23:35)
[2024-05-26] VITALS (24 sets, daily range): BP systolic 116–144; BP diastolic 71–82; PULSE 67–90; RESP 12; TEMP 36.4–37.1; O2SAT 84–98
[2024-05-26 01:33] LABS: Bilirubin Urine NEGATIVE (NEGATIVE); Blood Urine NEGATIVE (NEGATIVE); Clarity Urine CLEAR (CLEAR); Color Urine LT. YELLOW (YELLOW); Glucose Urine UA NEGATIVE (NEGATIVE); Ketones Urine NEGATIVE (NEGATIVE); Leukocyte Esterase Urine NEGATIVE (NEGATIVE); Nitrite Urine POSITIVE (NEGATIVE); Protein Urine NEGATIVE (NEG/TRACE); Specific Gravity Urine <=1.005 (1.005-1.025); Urobilinogen Urine 0.2 EU/dL (0.2-1.0); pH Urine 6.5 (5.0-9.0)
[2024-05-26 01:40] LABS: Amorphous Sediment Urine FEW; Bacteria Urine LARGE #/HPF (NONE SEEN); Cast Seen? NONE SEEN #/LPF (NONE SEEN); Crystals Seen? Seen #/HPF (None Seen); Mucus Urine NONE SEEN (NONE SEEN); Squamous Epithelial Cell Urine FEW #/LPF (NONE/RARE); Transitional Epi Cells Urine RARE #/LPF (NONE SEEN); Urine Culture Indicated YES
[2024-05-26 06:51] LABS: Basophils Absolute Auto 0.1 10^3/uL (0.0-0.1); Basophils Percent Auto 0.7 % (0.2-2.0); Eosinophils Absolute Auto 0.2 10^3/uL (0.0-0.7); Eosinophils Percent Auto 3.3 % (0.9-7.0); Hematocrit 37.1 % (36.0-48.0); Immature Granulocytes Abs Auto 0.03 10^3/uL (0.00-0.03); Immature Granulocytes Pct Auto 0.4 % (0.0-0.5); Lymphocytes Absolute Auto 2.4 10^3/uL (1.2-3.8); Lymphocytes Percent Auto 35.5 % (20.5-60.0); Mean Corpuscular HGB Conc 32.3 g/dL (29.9-35.2); Mean Corpuscular Hemoglobin 30.2 pg (26.7-34.0); Mean Corpuscular Volume 93.5 fL (81.0-99.0); Mean Platelet Volume 9.4 fL (9.5-13.5); Monocytes Absolute Auto 0.6 10^3/uL (0.3-0.8); Monocytes Percent Auto 8.1 % (1.7-12.0); Neutrophils Absolute Auto 3.6 10^3/uL (1.4-6.5); Platelet Count 254 10^3/uL (150-450); Red Blood Count 3.97 10^6/uL (4.20-5.40); Red Cell Distribution Width 14.1 % (11.0-15.0); White Blood Count 6.9 10^3/uL (4.0-11.0)
[2024-05-26 06:54] LABS: PCO2 VBG 49.5 mmHg (40.0-52.0); pH VBG 7.355 (7.330-7.430)
--- NOTE | 2024-05-26 07:17 | RESP.RT ---
titrated down to 40%
[2024-05-26 07:21] LABS: Alanine Aminotransferase 27 U/L (14-59); Alkaline Phosphatase 86 U/L (46-116); Anion Gap 10.5; Aspartate Amino Transferase 14 U/L (15-37); BUN Creatinine Ratio 21.6; Bilirubin Total 0.3 mg/dL (0.2-1.0); Calcium 8.7 mg/dL (8.5-10.1); Carbon Dioxide 28.8 mmol/L (21.0-32.0); Chloride 104 mmol/L (98-107); Estimated GFR (African America 56 (>=60); Estimated GFR (Non-African Ame 47 (>=60); Globulin 2.9 g/dL; Glucose 102 mg/dL (74-106); Potassium 4.3 mmol/L (3.5-5.1); Sodium 139 mmol/L (136-145); Total Protein 5.9 g/dL (6.4-8.2)
[2024-05-26] MEDS: MEMANTINE HCL 28 MG CAP XR PO (08:20)
[2024-05-26] MEDS: CITALOPRAM HYDROBROMIDE 20 MG TABLET PO (08:20)
[2024-05-26] MEDS: VENLAFAXINE HCL ER 75 MG CAPSULE PO (08:20)
[2024-05-26] MEDS: FAMOTIDINE/PF 20 MG/2 ML VIAL IV ×2 (08:20→20:51)
[2024-05-26] MEDS: CEFTRIAXONE 1,000 MG in 0.9 % SODIUM CHLORIDE 50 ML 100 MG IV (08:21)
--- NOTE | 2024-05-26 11:09 | PM.HP ---
HPI H&P: HPI History of Present Illness Chief complaint: LOW PULSE OX, HYPOXIA Narrative: 88-year-old female was brought to the emergency room by squad from [facility]. Patient recently been admitted there for rehabilitation therapy after a fall at a assisted living facility. Patient was in the entertainment area at the [place] and complaint of headache. When her vitals were measured, her oxygen saturation was found to be low. She was sent to the emergency room for evaluation. Upon arrival , patient showed no evidence of acute respiratory distress. Initial ox with 2 L of oxygen was 78 to 80%. but then she progressively required higher O2 and was eventually transitioned to high flow O2. Her hypoxia was confirmed with ABG showed PaO2 of 82 and pulse ox of 80%. Patient denies cough, shortness of breath, nausea, vomiting. She is very frail and confused at baseline due to her dementia. She does not appear to be in any respiratory distress and is comfortable with no apparent respiratory complaints or symptoms. Her workup in ED revealed no evidence of PE on CTA but bibasilar atelectasis which could be infiltrates considering that we do not have any alternative diagnosis, I will treat her as community-acquired pneumonia with IV Rocephin. Opioid HPI Opioid Management Most Recent Pain and Opioid Data: Last Pain Scale 3 05/16/24 05:30 Last Pain Assessment 05/26/24 11:00 Last ORT Total Score 0 05/25/24 22:13 Last ORT Risk Category Low Risk 05/25/24 22:13 Review of Systems ROS Status of ROS 10 or more systems reviewed and unremarkable except as noted in history and below [facility] Medical History (Updated 05/26/24 @ 11:15 by Shaikh Harry MD) Depression with anxiety ?F41.8 - Other specified anxiety disorders (ICD-10) Diverticulitis ?K57.92 - Diverticulitis of intestine, part unspecified, without perforation or abscess without bleeding (ICD-10) Falls infrequently ?Z91.81 - History of falling (ICD-10) Migraines ?G43.909 - Migraine, unspecified, not intractable, without status migrainosus (ICD-10) Dizziness ?R42 - Dizziness and giddiness (ICD-10) Pain ?R52 - Pain, unspecified (ICD-10) Dementia ?F03.90 - Unspecified dementia, unspecified severity, without behavioral disturbance, psychotic disturbance, mood disturbance, and anxiety (ICD-10) 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 - Takotsubo syndrome (ICD-10) Surgical History H/O: hysterectomy ?Z90.710 - Acquired absence of both cervix and uterus (ICD-10) H/O hernia repair ?Z98.890 - Other specified postprocedural states (ICD-10) ?Z87.19 - Personal history of other diseases of the digestive system (ICD-10) FH: cholecystectomy ?Z83.79 - Family history of other diseases of the digestive system (ICD-10) Family History Father Family history of cancer Family history of stroke Daughter Family history of diabetes mellitus Family history of hypertension Mother Family history of hypertension Social History Within the past year, how often did you have a drink containing alcohol: never Score interpretation: A score less than 3 is consistent with normal alcohol consumption. Smoking status: Never smoker Non-prescribed substance use: denies use Previous occupational history: retired Highest level of school completed/degree received: high school graduate Are you now , , , , never or living with a partner: In a typical week, how many times do you talk on the telephone with family, friends, or neighbors: 3 or more times per week How often do you get together with friends or relatives: 3 or more times per week How often do you attend yarsani or yarsanism services: never Little interest or pleasure in doing things: not at all Feeling down, depressed, or hopeless: not at all Feel stressed/tense/nervous/anxious/difficulty sleeping: not at all Do you think of yourself as: straight/heterosexual Gender Identity: female Meds Home Medications and Allergies Home Medications ?Medication ?Instructions ?Recorded ?Confirmed ?Type citalopram 20 mg tablet 20 mg PO DAILY 05/14/24 05/25/24 History hydroxyzine HCl 25 mg tablet 25 mg PO Q8H PRN anxiety 05/14/24 05/25/24 History memantine 10 mg tablet 10 mg PO Q12H 05/14/24 05/25/24 History venlafaxine 75 mg capsule,extended 75 mg PO DAILY 05/14/24 05/25/24 History release 24 hr acetaminophen 500 mg tablet 1,000 mg PO Q6H PRN pain 05/16/24 05/25/24 History (Tylenol Extra Strength) alprazolam 0.25 mg tablet 0.25 mg PO BID PRN anxiety 05/16/24 05/25/24 History aspirin 81 mg chewable tablet 81 mg PO .QHS 05/16/24 05/25/24 History [id number] 4 mg-folic acid 1 tab PO .QHS 05/16/24 05/25/24 History 200 mcg-vit K 25 mcg-lutein tablet (Centrum Minis Women 50 Plus) sumatriptan succinate 50 mg tablet 50 mg PO DAILY PRN migraine 05/16/24 05/25/24 History headache gabapentin 300 mg capsule 300 mg PO Q8H 05/25/24 05/25/24 History Allergies Allergy/AdvReac Type Severity Reaction Status Date / Time levofloxacin [From Levaquin] AdvReac Severe muscle Verified 05/25/24 17:14 aches Sulfa (Sulfonamide AdvReac Intermediate Weakness Verified 05/25/24 17:14 Antibiotics) Exam Constitutional Vital Signs, click to edit/add: Last Vital Signs Temp 98.8 F 05/26/24 08:00 Pulse 68 05/26/24 10:00 Resp 18 05/26/24 08:00 BP 120/77 05/26/24 08:20 Pulse Ox 94 L 05/26/24 10:00 O2 Del Method Vapotherm 05/26/24 06:20 O2 Flow Rate 30 05/26/24 06:20 FiO2 50 05/26/24 06:20 Documenting provider has reviewed patient's vital signs: yes Common normals: no apparent distress General appearance: cooperative, comfortable, ill appearing and frail appearing [facility] Common normals: normocephalic and head/scalp atraumatic Head and scalp: normocephalic and atraumatic Eye Common normals: conjunctivae normal and no scleral icterus Conjunctiva: conjunctiva(e) normal Respiratory Common normals: normal respiratory effort and clear to auscultation bilaterally Effort & inspection: able to speak in complete sentences Auscultation: clear to auscultation bilaterally and diminished lung sounds Cardio Common normals: regular rate, S1 normal heart sound and S2 normal heart sound Rate: regular rate Heart sounds: S1 normal and S2 normal GI Common normals: Normal to inspection, nondistended, normoactive bowel sounds present, soft to palpation, non-tender and no hepatosplenomegaly Palpation: soft and no hepatosplenomegaly Extremity Common normals: no clubbing, cyanosis or edema Neuro Common normals: moves all extremities and no focal motor deficits Sensorium/orientation: awake, alert and orientation impaired Psych Common normals: mental status grossly normal, denies hallucinations, denies homicidal ideation and denies suicidal ideation Results Labs Labs: Short CBC 05/25/24 05/26/24 Range/Units 17:30 06:09 WBC 7.3 6.9 (4.0-11.0) 10^3/uL Hgb 13.7 12.0 (12.0-16.0) g/dL Hct 40.8 37.1 (36.0-48.0) % Plt Count 236 254 (150-450) 10^3/uL BMP 05/25/24 05/26/24 17:30 06:09 Sodium 140 139 Potassium 4.1 4.3 Chloride 102 104 Carbon Dioxide 33.1 H 28.8 BUN 21.0 H 24.0 H Creatinine 0.89 1.11 H Glucose 120 H 102 Calcium 8.9 8.7 Liver Function 05/25/24 05/26/24 Range/Units 17:30 06:09 Total Bilirubin 0.3 0.3 (0.2-1.0) mg/dL AST 27 14 L (15-37) U/L ALT 31 27 (14-59) U/L Alkaline Phosphatase 103 86 (46-116) U/L Albumin 3.3 L 3.0 L (3.4-5.0) g/dL Urine 05/25/24 Range/Units 23:00 Urine Color Lt. yellow (YELLOW) Urine Clarity Clear (CLEAR) Urine pH 6.5 (5.0-9.0) Ur Specific [place] <=1.005 A (1.005-1.025) Urine Protein Negative (NEG/TRACE) mg/dL Urine Glucose (UA) Negative (NEGATIVE) mg/dL ABG ABG results: 08/02/24 08/03/24 18:10 06:09 ABG pH 7.462 H ABG pCO2 38.8 ABG pO2 42.0 L* ABG HCO3 27.7 H ABG O2 Saturation 80.5 ABG Base Excess 3.9 H VBG pH 7.355 VBG pCO2 49.5 Assessment and Plan Assessment and Plan (1) Acute respiratory failure with hypoxia: Assessment and Plan: No evidence of resp distress. No wheezing on exam. No evidence of volume overload. Still profoundly hypoxic and requiring Fio2 CTA - no PE or definitive consolidation but she has bibasilar atelectasis which typically does not cause sig hypoxia. I suspect this could be bibasilar PNA and we will treat her for it with IV rocephin especially when there is no definite or alternative explanation for her hypoxia. Duonebs as needed and q4. OPEP with duonebs. Wean off O2 as tolerated. (2) Pneumonia: Assessment and Plan: Suspected babasilar PNA - will treat as CAP - on IV rocephin. Qualifiers: Pneumonia type: due to unspecified organism Laterality: bilateral Lung location: lower lobe of lung Qualified Code(s): J18.9 - Pneumonia, unspecified organism (3) UTI (urinary tract infection): Assessment and Plan: c/w rocephin. F/u urine cultures. Qualifiers: Hematuria presence: without hematuria Urinary tract infection type: acute cystitis Qualified Code(s): N30.00 - Acute cystitis without hematuria (4) Dementia: Assessment and Plan: Confused at baseline. Monitor. Cw memantine. Qualifiers: Dementia type: unspecified type Dementia severity: unspecified severity Dementia behavioral or psychological symptom: unspecified whether behavioral, psychotic, or mood disturbance or anxiety Qualified Code(s): F03.90 - Unspecified dementia, unspecified severity, without behavioral disturbance, psychotic disturbance, mood disturbance, and anxiety (5) Depression with anxiety: Assessment and Plan: C/w home medications
[2024-05-26] MEDS: IPRATROPIUM/ALBUTEROL SULFATE 3 ML AMPUL.NEB IH (11:34)
[2024-05-26] MEDS: ALPRAZOLAM 0.25 MG TABLET PO ×2 (14:02→20:51)
--- NOTE | 2024-05-26 14:29 | RESP.RT ---
Addendum entered by Brionna Richards, MASTER SCHEDULER 05/26/24 14:30: HFNC 15L @ 1325, Vapo @ 1335, Bipap @ 1405 Original Note: SpO2 79% on 6L NC. Placed on HFNc @ 15L, but SpO2 did not increase. Placed on Vapotherm @ 40L/100% with no improvement. Pt placed on BiPap at 1405
[2024-05-26 14:40] LABS: PCO2 VBG 44.7 mmHg (40.0-52.0); pH VBG 7.403 (7.330-7.430)
--- NOTE | 2024-05-26 15:01 | PM.CSD1 ---
Advance Care Planning Advance Care Planning Discussion Advance care planning discussion summary: 88 y o female with dementia, presented with acute resp failure with hypoxia sec to PNA. She was doing better earlier today and was weaned off to 6 L NC from high flow O2 but then acutely worsened with pulse Ox as low as 70 % and was first placed on high flow O2 but when she continued to have persistent hypoxia on 100% FiO2 , switched over to BIPAP. Suprisingly, she remained asymptomatic, with no evidence of resp compromise. Patient has dementia, with poor insight and is confused at baseline. Her POA Bekah was at her bedside and we had detailed discussion on current illness, her prognosis, goals of care, end of life care, her code status. Daughter reports that patient did not want mechanical ventilation or CPR. After detailed discussed - she changed her code status to DNR CC. Hospice consulted as per her wishes. We will continue with O2 supplementation, IV abx and labs as before but no BIPAP as per her daughter. Approx 18 minutes spent on advanced care planning - this is separate from the time spent on patients medical management. Does patient have a terminal or chronic,progressive disease such that prognosis is less than 6 months: Yes Healthcare Proxy: Bekah Kilgore - daughter Advance care planning discussion participants: patient surrogate decision maker
--- NOTE | 2024-05-26 15:18 | PC.NURSE ---
1315 Patient O2 saturation declined to 77%, RT Brionna notified, 1325 Patient placed on Highflow NC @ 15L, Patients O2 sat at 82%. 1335 Medical POA arrives. Patient then placed on vapotherm 40L @ 50%. Vapotherm titrated to 40L @ 100%, O2 sat at 86% 1402 Patient and POA educated on BiPAP, Xanax provided for comfort 1405 Patient placed on Bipap, Settings 12/6, rate of 12, O2 at 25%. Patient 02 sat at 84%. Bipap titrated to 45%, O2 sat 96% 1430 Patient and POA spoke about code status. POA educated on code and next steps after Bipap. 1500 Dr[address] Mcdonald in to discuss code status with POA. POA decided DNR CC.
[2024-05-26] MEDS: ACETAMINOPHEN 325 MG TABLET 650 MG PO (17:57)
--- NOTE | 2024-05-26 18:09 | PC.NURSE ---
[facility] called for consult. stated they would reach out to the family and then call back with update
[2024-05-26] MEDS: OXYCODONE HCL 5 MG TABLET PO (18:28)
[2024-05-26] MEDS: MORPHINE SULFATE 4 MG/ML VIAL IV (20:51)
[2024-05-27 04:51] VITALS: BP 122/79; PULSE 75; TEMP 36.4; O2SAT 94
[2024-05-27 07:22] LABS: Basophils Absolute Auto 0.1 10^3/uL (0.0-0.1); Basophils Percent Auto 0.8 % (0.2-2.0); Eosinophils Absolute Auto 0.2 10^3/uL (0.0-0.7); Eosinophils Percent Auto 3.9 % (0.9-7.0); Hematocrit 38.4 % (36.0-48.0); Hemoglobin 12.2 g/dL (12.0-16.0); Immature Granulocytes Abs Auto 0.02 10^3/uL (0.00-0.03); Immature Granulocytes Pct Auto 0.3 % (0.0-0.5); Lymphocytes Absolute Auto 2.4 10^3/uL (1.2-3.8); Lymphocytes Percent Auto 39.9 % (20.5-60.0); Mean Corpuscular HGB Conc 31.8 g/dL (29.9-35.2); Mean Corpuscular Hemoglobin 30.5 pg (26.7-34.0); Mean Platelet Volume 9.4 fL (9.5-13.5); Monocytes Absolute Auto 0.6 10^3/uL (0.3-0.8); Monocytes Percent Auto 9.9 % (1.7-12.0); Neutrophils Absolute Auto 2.7 10^3/uL (1.4-6.5); Neutrophils Percent Auto 45.2 % (43.0-75.0); Platelet Count 251 10^3/uL (150-450); Red Cell Distribution Width 14.5 % (11.0-15.0)
[2024-05-27 07:45] LABS: Alanine Aminotransferase 24 U/L (14-59); Alkaline Phosphatase 105 U/L (46-116); Anion Gap 12.5; Aspartate Amino Transferase 15 U/L (15-37); Bilirubin Total 0.2 mg/dL (0.2-1.0); Calcium 8.9 mg/dL (8.5-10.1); Carbon Dioxide 26.3 mmol/L (21.0-32.0); Chloride 107 mmol/L (98-107); Estimated GFR (African America >60 (>=60); Estimated GFR (Non-African Ame 53 (>=60); Globulin 3.1 g/dL; Glucose 136 mg/dL (74-106); Potassium 3.8 mmol/L (3.5-5.1); Sodium 142 mmol/L (136-145); Total Protein 6.1 g/dL (6.4-8.2)
[2024-05-27] MEDS: CEFTRIAXONE 1,000 MG in 0.9 % SODIUM CHLORIDE 50 ML 100 MG IV (09:41)
[2024-05-27] MEDS: MEMANTINE HCL 28 MG CAP XR PO (09:42)
[2024-05-27] MEDS: FAMOTIDINE/PF 20 MG/2 ML VIAL IV ×2 (09:42→20:18)
[2024-05-27] MEDS: VENLAFAXINE HCL ER 75 MG CAPSULE PO (09:42)
[2024-05-27] MEDS: CITALOPRAM HYDROBROMIDE 20 MG TABLET PO (09:42)
[2024-05-27] MEDS: MORPHINE SULFATE 2 MG/ML SYRINGE IV ×2 (12:07→16:59)
[2024-05-27 12:09] VITALS: BP 131/79; PULSE 71; TEMP 36.7; O2SAT 94
--- NOTE | 2024-05-27 13:29 | P.IMPN_ITS ---
Progress Note: A&P Assessment and Plan (1) Acute respiratory failure with hypoxia: Assessment and Plan: Still requiring High flow O2. Comfortable. Hospice on board. CC measures only. (2) Pneumonia: Assessment and Plan: On IV rocephin/azithromycin. Doing better today. Qualifiers: Pneumonia type: due to unspecified organism Laterality: bilateral Lung location: lower lobe of lung Qualified Code(s): J18.9 - Pneumonia, unspecified organism (3) UTI (urinary tract infection): Assessment and Plan: On rocephin. F/u urine cx. Qualifiers: Hematuria presence: without hematuria Urinary tract infection type: acute cystitis Qualified Code(s): N30.00 - Acute cystitis without hematuria (4) Dementia: Assessment and Plan: Confused at baseline. C/w memantine Qualifiers: Dementia type: unspecified type Dementia severity: unspecified severity Dementia behavioral or psychological symptom: unspecified whether behavioral, psychotic, or mood disturbance or anxiety Qualified Code(s): F03.90 - Unspecified dementia, unspecified severity, without behavioral disturbance, psychotic disturbance, mood disturbance, and anxiety (5) Depression with anxiety: Assessment and Plan: Stable. C/w home medications. Internal Medicine - PN: Subj Subjective Interval history: Seen and examined. No overnight events. Appears weak and lethargic. No acute distress noted. Exam Constitutional Vital Signs, click to edit/add: Last Vital Signs Temp 98.0 F 05/27/24 12:09 Pulse 71 05/27/24 12:09 Resp 20 05/27/24 12:09 BP 131/79 05/27/24 12:09 Pulse Ox 94 L 05/27/24 12:09 O2 Del Method Room Air 05/27/24 12:09 O2 Flow Rate 10 05/26/24 20:04 FiO2 45 05/26/24 14:05 Documenting provider has reviewed patient's vital signs: yes Common normals: no apparent distress General appearance: cooperative, comfortable, ill appearing and frail appearing [facility] Common normals: normocephalic and head/scalp atraumatic Head and scalp: normocephalic and atraumatic Eye Common normals: conjunctivae normal and no scleral icterus Conjunctiva: conjunctiva(e) normal Respiratory Common normals: normal respiratory effort and clear to auscultation bilaterally Effort & inspection: able to speak in complete sentences Auscultation: clear to auscultation bilaterally and diminished lung sounds Cardio Common normals: regular rate, S1 normal heart sound and S2 normal heart sound Rate: regular rate Heart sounds: S1 normal and S2 normal GI Common normals: Normal to inspection, nondistended, normoactive bowel sounds present, soft to palpation, non-tender and no hepatosplenomegaly Palpation: soft and no hepatosplenomegaly Extremity Common normals: no clubbing, cyanosis or edema Neuro Common normals: moves all extremities and no focal motor deficits Sensorium/orientation: awake, alert and orientation impaired Psych Common normals: mental status grossly normal, denies hallucinations, denies homicidal ideation and denies suicidal ideation Internal Medicine - PN: Obj Da Labs Labs: Laboratory Results - last 24 hr 05/26/24 05/27/24 14:32 07:00 WBC 6.0 RBC 4.00 L Hgb 12.2 Hct 38.4 MCV 96.0 MCH 30.5 MCHC 31.8 RDW 14.5 Plt Count 251 MPV 9.4 L Neut % (Auto) 45.2 Lymph % (Auto) 39.9 [place] % (Auto) 9.9 Eos % (Auto) 3.9 Baso % (Auto) 0.8 Neut # (Auto) 2.7 Lymph # (Auto) 2.4 Sunflower # (Auto) 0.6 Eos # (Auto) 0.2 Baso # (Auto) 0.1 Abs Immat Gran (auto) 0.02 Imm/Tot Granulo (auto) 0.3 VBG pH 7.403 VBG pCO2 44.7 Sodium 142 Potassium 3.8 Chloride 107 Carbon Dioxide 26.3 Anion Gap 12.5 BUN 32.0 H Creatinine 1.00 Est GFR ( Amer) >60 Est GFR (Non-Af Amer) 53 L BUN/Creatinine Ratio 32.0 Glucose 136 H Calcium 8.9 Total Bilirubin 0.2 AST 15 ALT 24 Alkaline Phosphatase 105 Total Protein 6.1 L Albumin 3.0 L Globulin 3.1 Albumin/Globulin Ratio 1.0
[2024-05-27 19:45] VITALS: O2SAT 95
[2024-05-27 20:00] VITALS: PULSE 79
[2024-05-27] MEDS: ALPRAZOLAM 0.25 MG TABLET PO (20:17)
[2024-05-27] MEDS: ENOXAPARIN SODIUM 40 MG/0.4 ML SYRINGE SUBQ (20:18)
[2024-05-27 20:31] VITALS: BP 143/81; PULSE 74; TEMP 36.6; O2SAT 97
[2024-05-27] MEDS: MORPHINE SULFATE 4 MG/ML VIAL IV (21:43)
[2024-05-28 00:08] VITALS: BP 150/88; PULSE 74; TEMP 36.6; O2SAT 92
[2024-05-28] MEDS: MORPHINE SULFATE 2 MG/ML SYRINGE IV ×4 (00:12→15:09)
[2024-05-28 05:19] VITALS: BP 145/78; PULSE 75; TEMP 36.6; O2SAT 92
[2024-05-28 05:47] LABS: Basophils Percent Auto 0.5 % (0.2-2.0); Eosinophils Absolute Auto 0.3 10^3/uL (0.0-0.7); Eosinophils Percent Auto 3.5 % (0.9-7.0); Hematocrit 41.5 % (36.0-48.0); Hemoglobin 12.8 g/dL (12.0-16.0); Immature Granulocytes Abs Auto 0.02 10^3/uL (0.00-0.03); Immature Granulocytes Pct Auto 0.3 % (0.0-0.5); Lymphocytes Absolute Auto 2.3 10^3/uL (1.2-3.8); Lymphocytes Percent Auto 29.7 % (20.5-60.0); Mean Corpuscular HGB Conc 30.8 g/dL (29.9-35.2); Mean Corpuscular Hemoglobin 30.4 pg (26.7-34.0); Mean Corpuscular Volume 98.6 fL (81.0-99.0); Mean Platelet Volume 9.2 fL (9.5-13.5); Monocytes Absolute Auto 0.7 10^3/uL (0.3-0.8); Monocytes Percent Auto 9.7 % (1.7-12.0); Neutrophils Absolute Auto 4.3 10^3/uL (1.4-6.5); Neutrophils Percent Auto 56.3 % (43.0-75.0); Platelet Count 232 10^3/uL (150-450); Red Blood Count 4.21 10^6/uL (4.20-5.40); Red Cell Distribution Width 14.1 % (11.0-15.0); White Blood Count 7.6 10^3/uL (4.0-11.0)
[2024-05-28 05:59] LABS: Alanine Aminotransferase 25 U/L (14-59); Albumin Level 3.1 g/dL (3.4-5.0); Alkaline Phosphatase 92 U/L (46-116); Anion Gap 7.1; Aspartate Amino Transferase 17 U/L (15-37); BUN Creatinine Ratio 30.5; Bilirubin Total 0.3 mg/dL (0.2-1.0); Calcium 8.9 mg/dL (8.5-10.1); Carbon Dioxide 30.1 mmol/L (21.0-32.0); Chloride 106 mmol/L (98-107); Estimated GFR (African America >60 (>=60); Estimated GFR (Non-African Ame 56 (>=60); Globulin 3.2 g/dL; Glucose 106 mg/dL (74-106); Potassium 4.2 mmol/L (3.5-5.1); Sodium 139 mmol/L (136-145); Total Protein 6.3 g/dL (6.4-8.2)
--- NOTE | 2024-05-28 09:21 | CM.NOTE ---
Rounds made with Dr. Mcdonald, pt will discharge today to [facility].
[2024-05-28 09:26] VITALS: BP 134/74; PULSE 72; TEMP 36.4; O2SAT 91
[2024-05-28] MEDS: FAMOTIDINE/PF 20 MG/2 ML VIAL IV (09:29)
[2024-05-28] MEDS: CEFTRIAXONE 1,000 MG in 0.9 % SODIUM CHLORIDE 50 ML 100 MG IV (09:29)
[2024-05-28] MEDS: VENLAFAXINE HCL ER 75 MG CAPSULE PO (09:30)
[2024-05-28] MEDS: MEMANTINE HCL 28 MG CAP XR PO (09:30)
[2024-05-28] MEDS: CITALOPRAM HYDROBROMIDE 20 MG TABLET PO (09:30)
--- NOTE | 2024-05-28 09:36 | SWNOTE1 ---
Pt has been signed on to [facility]. Plan is to return to the [facility] today. [facility] requesting updates, prior to coming to hospital pt was skilled at [facility]. Pt had a decline and signed on to [facility] last night. Updates sent to [facility] including, physican notes, ED note, vitals, labs, med list, diagnostic imaging, DNR paperwork, and nursing notes. AYANA spoke to Susan at [facility] and they will review updates and get back to .
--- NOTE | 2024-05-28 10:02 | P.DS_ITS ---
DS: Providers Provider Date of admission: 05/25/24 21:51 Primary care physician: Dahiana Ren MD Admitting clinician: Shaikh Harry Attending physician on admission: Shaikh Harry Consults: 05/25/24 Consult to Dietitian Routine Reason for consultation: unintentional weight loss Has provider been notified: Yes 05/26/24 07:36 Occupational Therapy Eval and Treat Routine Reason for consultation: Ambulatory dysfunction/weakness Physical Therapy Eval and Treat Routine Reason for consultation: Ambulatory dysfunction/weakness 05/26/24 15:00 Consult to Hospice Routine Reason for consultation: end of life care Attending physician on discharge: Shaikh Harry Discharging clinician: Shaikh Harry Anticipated date of discharge: 05/28/24 DS: Diagnosis Discharge Diagnosis (1) Acute respiratory failure with hypoxia: Assessment and plan: Persistent, likely due to PNA. CC measures only. Will d/c on O2 - currently on 8 L Will need to finish oral abx - Oral ceftin x 4 more days (2) Pneumonia: Assessment and plan: Will d/c on oral Levaquin. Qualifiers: Pneumonia type: due to unspecified organism Laterality: bilateral Lung location: lower lobe of lung Qualified Code(s): J18.9 - Pneumonia, unspecified organism (3) UTI (urinary tract infection): Assessment and plan: Will d/c on oral ceftin Qualifiers: Hematuria presence: without hematuria Urinary tract infection type: acute cystitis Qualified Code(s): N30.00 - Acute cystitis without hematuria (4) Dementia: Assessment and plan: Confused at baseline. C/w memantine. Qualifiers: Dementia type: unspecified type Dementia severity: unspecified severity Dementia behavioral or psychological symptom: unspecified whether behavioral, psychotic, or mood disturbance or anxiety Qualified Code(s): F03.90 - Unspecified dementia, unspecified severity, without behavioral disturbance, psychotic disturbance, mood disturbance, and anxiety (5) Depression with anxiety: Assessment and plan: C/w home medications DS: Summary Hospital Course Hospital Course: 88-year-old female was brought to the emergency room by squad from [facility] for acute respiratory failure with hypoxia.Upon arrival , patient showed no evidence of acute respiratory distress. Initial ox with 2 L of oxygen was 78 to 80%. but then she progressively required higher O2 and was eventually transitioned to high flow O2. Her hypoxia was confirmed with ABG showed PaO2 of 82 and pulse ox of 80%. PHer workup in ED revealed no evidence of PE on CTA but bibasilar atelectasis which could be infiltrates considering that we did not have any alternative diagnosis for her hypoxia, she was treated for bacterial PNA. I will treat her as community-acquired pneumonia with IV Rocephin. She also have abnormal UA c/w UTI. Patient was treated with IV rocephin/azithromycin for CAP/UTI. We had detailed discussion with her daughter who is POA - who opted for CC measures for her and we consulted hospice to manage and co ordinate end of life care. Patient will be discharged today to [facility]. She is currently on 8 L O2 via NC. Status at Discharge Functional status at discharge: bed bound Overall status at discharge: patient is not back to baseline Time Spent with Patient Time attestation: Total time spent providing and/or coordinating discharge services: Time spent: greater than 30 minutes Exam Constitutional Vital Signs, click to edit/add: Last Vital Signs Temp 97.6 F 05/28/24 09:26 Pulse 72 05/28/24 09:26 Resp 16 05/28/24 09:26 BP 134/74 05/28/24 09:26 Pulse Ox 91 L 05/28/24 09:26 O2 Del Method Nasal Cannula 05/28/24 09:26 O2 Flow Rate 8 05/28/24 09:26 FiO2 45 05/26/24 14:05 Documenting provider has reviewed patient's vital signs: yes Common normals: no apparent distress General appearance: cooperative, comfortable, ill appearing and frail appearing [facility] Common normals: normocephalic and head/scalp atraumatic Head and scalp: normocephalic and atraumatic Eye Common normals: conjunctivae normal and no scleral icterus Conjunctiva: conjunctiva(e) normal Respiratory Common normals: normal respiratory effort and clear to auscultation bilaterally Effort & inspection: able to speak in complete sentences Auscultation: diminished lung sounds Cardio Common normals: regular rate, S1 normal heart sound and S2 normal heart sound Rate: regular rate Heart sounds: S1 normal and S2 normal Neuro Common normals: moves all extremities and no focal motor deficits Sensorium/orientation: awake, alert and orientation impaired Psych Common normals: mental status grossly normal, denies hallucinations, denies homicidal ideation and denies suicidal ideation DS: Data Data Completed and Pending Labs on day of discharge: Labs from last 24 hours 05/28/24 05:28 WBC 7.6 RBC 4.21 Hgb 12.8 Hct 41.5 MCV 98.6 MCH 30.4 MCHC 30.8 RDW 14.1 Plt Count 232 MPV 9.2 L Neut % (Auto) 56.3 Lymph % (Auto) 29.7 [place] % (Auto) 9.7 Eos % (Auto) 3.5 Baso % (Auto) 0.5 Neut # (Auto) 4.3 Lymph # (Auto) 2.3 [place] # (Auto) 0.7 Eos # (Auto) 0.3 Baso # (Auto) 0.0 Abs Immat Gran (auto) 0.02 Imm/Tot Granulo (auto) 0.3 Sodium 139 Potassium 4.2 Chloride 106 Carbon Dioxide 30.1 Anion Gap 7.1 BUN 29.0 H Creatinine 0.95 Est GFR ( Amer) >60 Est GFR (Non-Af Amer) 56 L BUN/Creatinine Ratio 30.5 Glucose 106 Calcium 8.9 Total Bilirubin 0.3 AST 17 ALT 25 Alkaline Phosphatase 92 Total Protein 6.3 L Albumin 3.1 L Globulin 3.2 Albumin/Globulin Ratio 1.0 Discharge Plan Discharge Disposition: Hospice - Medical Facility Condition: Fair Discharge Medications: New cefuroxime axetil 500 mg tablet 500 mg PO BID Qty: 14 0RF Continued citalopram 20 mg tablet 20 mg PO DAILY hydroxyzine HCl 25 mg tablet 25 mg PO Q8H PRN (Reason: anxiety) memantine 10 mg tablet 10 mg PO Q12H venlafaxine 75 mg capsule,extended release 24hr 75 mg PO DAILY alprazolam 0.25 mg tablet 0.25 mg PO BID PRN (Reason: anxiety) acetaminophen [Tylenol Extra Strength] 500 mg tablet 1,000 mg PO Q6H PRN (Reason: pain) aspirin 81 mg tablet,chewable 81 mg PO .QHS Centrum Minis Women 50 Plus 4 mg iron-200 mcg-25 mcg tablet 1 tab PO .QHS sumatriptan succinate 50 mg tablet 50 mg PO DAILY PRN (Reason: migraine headache) gabapentin 300 mg capsule 300 mg PO Q8H Activity: increase activity as tolerated Diet: advance to your usual diet Print Language: Indonesian Forms: Portal Instructions Follow Up Appointments: F/U with Hospice as needed
--- NOTE | 2024-05-28 10:29 | REH.PTDLY ---
Physical Therapy Daily Note PT Daily Note/Assess Start: 05/28/24 10:27 Freq: Status: Active Protocol: Document 05/28/24 10:27 SAMUEL (Rec: 05/28/24 10:28 OMARICARRIER CLINICKIMBERLY [id number]) Visit Not Completed Other Reason Visit Not Completed Pt is now on hospice, comfort care. DC pt from PT per Dr. Mcdonald. Physical Therapy Daily Note/Assessment Time In 10:20 Time Out 10:22
--- NOTE | 2024-05-28 10:47 | SWNOTE1 ---
AYANA spoke to Bekah, pt's daughter, in regards to pt being private pay now that she is returning to [facility] pharmacist [facility]. Pt's daughter voiced understanding. SW let her know that Alexander from [facility] will be calling her. SW also let her know the plan is for her to discharge to [facility] today, AYANA has sent updates and just waiting for [facility] to call back and give the approval for her to come. At this time pt's daughter does not have any questions. Pt's daughter is on her way to hospital right now. AYANA did review Important Message from [employer] with daughter, will have her sign once she arrives to hospital.
[2024-05-28 11:38] VITALS: PULSE 79; O2SAT 88
--- NOTE | 2024-05-28 12:15 | SWNOTE1 ---
[facility] is able to accommodate. [facility]YANA set up [employer] transportation for 3:30pm. SW notified [facility] and [facility] and notified of time. AYANA sent dc med rec and dc summary to [facility] and [facility]. AYANA let nursing know as well. [facility] completed [employer] paperwork and took packet to the med surge floor. Important Message from Medicare reviewed and discussed with patient.'s daughter. Pt's daughter verbalized understanding and signed the form. Original given to patient's daughter and copy placed in patient?s chart. 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
[2024-05-28 15:55] VITALS: BMI 24.2
--- NOTE | 2024-05-28 16:33 | PC.NURSE ---
Attempted to call report at [phone].. Waited on hold for 4 minutes. Attempted to call a second time once [employer] took patient and waited for 3 minutes.
== END 2024-05-28 15:57 | disposition hospice, home (50) | DRG 193 ==
LOC: ER 19:42 → ICU 21:56 → MS 05-26 17:01
PROVIDERS: Physician Assistant; Registered Nurse; Admitting Provider Internal Medicine; Emergency Provider Emergency Medicine Emergency Medical Services; PCP Family Medicine; Visit Provider Internal Medicine
DX: J18.9 Pneumonia, unspecified organism (principal); J96.01 Acute respiratory failure with hypoxia; N30.00 Acute cystitis without hematuria; F03.90 Unspecified dementia, unspecified severity, without behavioral disturbance, psychotic disturbance, mood disturbance, and anxiety; F32.A Depression, unspecified; F41.9 Anxiety disorder, unspecified; Z79.899 Other long term (current) drug therapy; Z91.81 History of falling; Z90.710 Acquired absence of both cervix and uterus; Z98.890 Other specified postprocedural states; Z79.82 Long term (current) use of aspirin; Z66 Do not resuscitate; B96.20 Unspecified Escherichia coli [E. coli] as the cause of diseases classified elsewhere
CPT/HCPCS: 36415; 36600; 71045; 71275; 80053; 81001; 82800; 82805; 83735; 83880; 84484; 85025; 87086; 87186; 87811; 93005; 94640; 94660; 94667; 94761; 94799; 96365; 96366; 96372; 96375; 96376; 97162; 99285; J0696; J1650; J2270; Q9967